=== PATIENT | male | born 1955 | race African-American/Black ===

== ENCOUNTER 2017-01-10 13:32 | Inpatient (IN) ==
[2017-01-10 14:05] LABS: Basophils # 0.1 K/mcL (0.0-0.2); Basophils % 0.6 %; Eosinophils # 0.5 K/mcL (0.0-0.6); Eosinophils % 5.3 %; Hematocrit 40.4 % (37.5-50.1); Hemoglobin 13.8 g/dL (12.9-16.9); Immature Granulocytes % 1.9 % (0-4); Immature Platelets 5.1 % (1.1-6.1); Lymphocytes # 1.3 K/mcL (0.6-4.6); Lymphocytes % 15.8 %; Mean Corpuscular HGB Conc 34.2 g/dL (31.6-35.5); Mean Corpuscular Hemoglobin 29.4 pg (28.0-33.3); Mean Platelet Volume 9.6 fL (9.4-12.4); Monocytes # 0.9 K/mcL (0.0-1.3); Monocytes % 10.6 %; Neutrophils # 5.6 K/mcL (1.6-8.9); Platelet Count 222 K/mcL (140-400); Red Cell Distribution Width 12.4 % (11.5-14.5); Segmented Neutrophils % 65.8 %
[2017-01-10 14:10] LABS: INR 1.2; Prothrombin Time 13.5 Seconds (9.4-12.1)
--- NOTE | 2017-01-10 14:12 | Emergency Department Note ---
Disposition Clinical Impression: Hyponatremia, Morbid obesity with BMI of 50.0-59.9, adult, Delirium tremens Alcoholic intoxication Qualifiers: Complication of substance-induced condition: with delirium Qualified Code(s): F10.921 - Alcohol use, unspecified with intoxication delirium Altered mental status Qualifiers: Altered mental status type: delirium Qualified Code(s): R41.0 - Disorientation , unspecified Disposition: Admitted As Inpatient Condition: Fair Referrals: NO,PCP [Primary Care Provider] - Forms: ED Satisfaction Letter Time of Disposition: 17:22 Altered Mental Status HPI - General Chief Complaint: ED Altered Mental Status Stated Complaint: "not acting right" Time Seen by Provider: 01/10/17 13:39 Source: EMS Mode of arrival: EMS Limitations: altered mental status Nursing Notes Reviewed: Yes Vital Signs Reviewed: Yes - History of Present Illness HPI Narrative: Patient presents by EMS for evaluation of altered mental status and failure to thrive at home. Patient was found Hypoxic and answering questions inappropriately at the house. EMS was concerned about poor oxygen usage. They put him on telemetry by nasal cannula and he started to perk up. Denied any other issues prior to these events. MD complaint: altered mental status, confusion Onset (ago): day(s) Pain Severity: moderate Consistency of Symptoms: waxing and waning Context: alcohol abuse, history of similar presentation, COPD Associated symptoms: Reports: denies other symptoms Treatments prior to arrival: IV fluid, oxygen - Related Data Home Medications Medication Instructions Recorded Confirmed Atorvastatin [Lipitor] 40 mg PO HS 07/29/15 01/10/17 Folic Acid 1 mg PO DAILY 07/29/15 01/10/17 Furosemide [Lasix] 40 mg PO BID 07/29/15 01/10/17 Gabapentin [Neurontin] 1,200 mg PO TID 07/29/15 01/10/17 HYDROcodone/Acet 7.5/325 mg [[place] 1 tab PO Q8H PRN 07/29/15 01/10/17 7.5-325 mg] Sertraline [Zoloft] 150 mg PO QAM 07/29/15 01/10/17 Triamterene/HCTZ 37.5/25mg 1 tab PO DAILY 07/29/15 01/10/17 [Dyazide] Albuterol Sulfate [Albuterol 2 puff IH Q4HR PRN 10/25/15 01/10/17 Inhaler] Metoprolol Succinate 100 mg PO DAILY 10/25/15 10/25/15 Potassium Chloride 20 meq PO DAILY 10/25/15 01/10/17 Budesonide/Formoterol 160/4.5 2 puff IH BIDR 01/10/17 01/10/17 [Symbicort 160/4.5] Omeprazole [PriLOSEC] 40 mg PO DAILY 01/10/17 01/10/17 Oxygen 1 each .ROUTE AD 01/10/17 01/10/17 Previous Rx's Medication Instructions Recorded Fluticasone Propionate Nasal 2 spray NS DAILY 7 Days 11/10/15 [Flonase] Cyclobenzaprine [Flexeril] 10 mg PO TID #15 tablet 11/22/15 Nitroglycerin [Nitrostat] 0.4 mg SL Q5-10MIN PRN 30 Days 12/05/15 Allergies Allergy/AdvReac Type Severity Reaction Status Date / Time azithromycin [From Zithromax] Allergy Rash Verified 01/10/17 13:39 All systems ED: reviewed and negative except as stated. Review of Systems: As Per HPI Constitutional: Denies: fever, chills Cardiovascular: Denies: chest pain, palpitations, dyspnea on exertion Respiratory: Denies: cough, dyspnea, wheezes, hemoptysis Gastrointestinal: Reports: nausea. Denies: abdominal pain, vomiting, diarrhea, constipation Genitourinary: Denies: urgency, dysuria, frequency Musculoskeletal: Denies: back pain, neck pain Integumentary: Denies: rash Neurological: Denies: headache, weakness Endocrine: Denies: fatigue Hematological/Lymphatic: Denies: easy bleeding Past Medical History - Past Medical History Attestation: Yes The following information was validated with the patient. Source: patient Medical history: Reports: COPD, hypertension, other Psychiatric history: Reports: no psych history - Social History Smoking Status: Never smoker Smokeless Tobacco Status: No Alcohol use: Reports: unknown Drug use: Reports: none Physical Exam - General Limitations: altered mental status General appearance: alert, in no apparent distress - Head Head exam: atraumatic, normocephalic, normal inspection - Eye Eye exam: Present: normal appearance, PERRL, EOMI - ENT ENT exam: normal exam, normal oropharynx, mucous membranes moist - Neck Neck exam: Present: normal inspection, full ROM, trachea midline. Absent: tenderness, meningismus, lymphadenopathy - Chest Chest inspection: Present: normal inspection, symmetric chest wall rise. Absent : tenderness - Respiratory Respiratory exam: Present: normal lung sounds bilaterally. Absent: respiratory distress, wheezes, stridor, accessory muscle use - Cardiovascular Cardiovascular exam: Present: regular rate, normal rhythm, normal heart sounds - Abdominal Exam Abdominal exam: Present: soft, Non-Tender, normal bowel sounds. Absent: tenderness, distention, guarding, rebound, rigidity, diminished bowel sounds, Arroyo's sign, Rovsing's sign, tenderness at McBurney's Point - Extremities Exam Extremities exam: Present: normal inspection, full ROM, normal capillary refill. Absent: tenderness - Back Exam Back exam: Present: normal inspection, full ROM. Absent: tenderness, CVA tenderness (R), CVA tenderness (L) - Neurological Exam Neurological exam: Present: alert, oriented X3, CN II-XII intact, normal gait - Skin Skin exam: Present: warm, dry, intact, normal color Course Course Narrative: Patient seen and examined the time of arrival by EMS. See history of present illness. [id number] male presents for confusion acting differently at home. EMS was called secondary to this issue. They rented a house with concern for the patient's well-being secondary to oxygen saturation, altered mental status, confusion. He had a long cord with the oxygen concentrator on the pump that appeared to be malfunctioning. Patient put on oxygen immediately the rest of his vital signs are stable Accu-Chek was normal in transit. He is brought to the hospital without any concern or issue. He still has uncontrolled [place] rhythms in the upper and lower extremities as well as patient answers questions appropriately but has some difficulty with conversation this time. There is concern for possible failure to thrive or decompensation. No other medical history this time EMS did not have anything else to add at this point. Initial physical exam head is atraumatic patient did fall yesterday and has skin tears to the left lower leg. Tetanus will be updated at this point. Evaluation with CT of the head chest x-ray EKG labs including urinalysis urine drug screen ethanol will be ordered this point. Patient is otherwise resting comfortably in the bed in no specific distress. He does show acute signs of intoxication or mentation related issues. There is concern for other underlying etiology. He does not have any focal asymmetry to the upper and lower extremity is or facial asymmetry on exam. Low clinical concern for strokelike symptoms at this time appears to be more of an intoxication related issue. Family is not with him at this point disposition pending treatment course and family consultation - Reevaluation(s) Reevaluation #1: Family arrived at the bedside at this time. They describe long-term alcoholic. Patient had thiamine folate and ammonia. No other issues or concerns this time for CT imaging is negative chest x-ray stable. Labs to be reviewed disposition determined. Time: 15:27 Reevaluation #2: CT of the abdomen completed this time. Consultation placed onto the apple turner Dr. Hinojosa about the patient's hyponatremia. Will review the presentation symptoms. She did not recommend acute hypertonic saline treatment considering the patient was mentating appropriately and is waxing and waning symptoms. She recommended fluid restriction at this time a urine sodium and then admission process to be completed patient also recommend getting a liter of fluid. Patient has otherwise been acting appropriately until he went over to CAT scan at this time. No other trauma or injuries noted this point. He has a skin tear to the left leg. Patient is concerning for alcohol withdrawal causing delirium tremens. He does not fit the clinical presentation will treat him as such along with the findings for weight and lactulose. Large doses of benzodiazepines to be given at this point. Admission process to be completed. Consultation placed to the hospitalist and I reviewed the presentation with the nurse practitioner Kiera Felder. We reviewed the presentation symptoms medical intervention and my concern at this time. She understands all evaluated patient. No other acute issues noted this point. Time: 17:08 Reevaluation #3: Patient is better now after 5 mg of IV Valium. The shaking and altered mentation stopped. Clinically does not have any acute signs of intracranial bleed or pathology. He has not have any acute signs of infectious etiology or concern for meningitis or encephalitis at this point. IV Ativan as given for the urinary tract infection as well as treatment of delirium tremens at this point. Patient admitted the hospital for definitive management. Vital signs as well as medical condition is stabilized. We will continue to watch into the admission process is completed Time: 18:09 Vital Signs Temperature 97.7 F 01/10/17 13:39 Pulse Rate 91 01/10/17 13:39 Respiratory Rate 18 01/10/17 13:39 Blood Pressure 118/58 01/10/17 13:39 O2 Sat by Pulse Oximetry 95 01/10/17 13:39 Temperature 97.7 F 01/10/17 13:39 Pulse Rate 84 01/10/17 17:45 Respiratory Rate 22 01/10/17 17:45 Blood Pressure 102/54 01/10/17 17:45 O2 Sat by Pulse Oximetry 100 01/10/17 17:45 Oxygen Delivery Oxygen Delivery Room Air Altered Mental Status - MDM Narrative Medical decision making narrative: Alcohol withdrawal, delirium tremens, hyponatremia - Medical Records Medical records reviewed: Yes I reviewed the patient's medical records. - Lab Data Lab results reviewed: Yes I reviewed the patient's lab results. Result diagrams: 01/10/17 13:59 01/10/17 13:59 Lab Results 01/10/17 01/10/17 01/10/17 Range/Units 13:59 13:59 13:59 WBC 8.4 (4.3-11.1) K/mcL RBC 4.70 (4.19-5.50) M/mcL Hgb 13.8 (12.9-16.9) g/dL Hct 40.4 (37.5-50.1) % MCV 86.0 (83.0-100.0) fL MCH 29.4 (28.0-33.3) pg MCHC 34.2 (31.6-35.5) g/dL RDW 12.4 (11.5-14.5) % Plt Count 222 (140-400) K/mcL MPV 9.6 (9.4-12.4) fL Immature Gran % 1.9 (0-4) % Seg Neutrophils % 65.8 % Lymphocytes % 15.8 % Monocytes % 10.6 % Eosinophils % 5.3 % Basophils % 0.6 % Neutrophils # 5.6 (1.6-8.9) K/mcL Lymphocytes # 1.3 (0.6-4.6) K/mcL Monocytes # 0.9 (0.0-1.3) K/mcL Eosinophils # 0.5 (0.0-0.6) K/mcL Basophils # 0.1 (0.0-0.2) K/mcL Immature Plt Fraction 5.1 (1.1-6.1) % PT 13.5 H (9.4-12.1) Seconds INR 1.2 APTT 32.9 (26.0-36.0) Seconds Carboxyhemoglobin (0-5) % Sodium 119 L* (136-145) mEq/L Potassium 3.2 L (3.5-4.5) mEq/L Chloride 81 L (98-109) mEq/L Carbon Dioxide 29 (19-29) mEq/L BUN 15 (8-26) mg/dL Creatinine 1.26 H (0.72-1.25) mg/dL Est GFR ( Amer) > 60 (> 60) Est GFR (Non-Af Amer) 58 L (> 60) BUN/Creatinine Ratio 12 (6-26) Glucose 104 H (70-99) mg/dL Calculated Osmolality 249 L (280-300) Calcium 8.4 L (8.6-10.8) mg/dL Total Bilirubin 1.1 (0.2-1.2) mg/dL Direct Bilirubin 0.5 (0.0-0.5) mg/dL Indirect Bilirubin 0.6 (0.0-1.2) mg/dL AST 32 (5-34) Units/L ALT 12 (0-55) Units/L Alkaline Phosphatase 111 (38-126) Units/L Ammonia (18-72) mcmol/L Creatine Kinase 191 (30-200) Units/L Troponin I (0-0.03) ng/mL Serum Total Protein 7.4 (6.0-8.3) g/dL Albumin 3.0 L (3.5-5.0) g/dL Globulin 4.4 H (2.4-3.5) g/dL Albumin/Globulin Ratio 0.7 L (1.1-2.2) Urine Color (Yellow) Urine Clarity (Clear) Urine pH (5.0-8.0) pH Units Ur Specific [place] (1.010-1.025) Urine Protein (Neg-Trace) mg/dL Urine Glucose (UA) (Normal) mg/dL Urine Ketones (Negative) mg/dL Urine Blood (Negative) Urine Nitrite (Negative) Urine Bilirubin (Negative) Urine Urobilinogen (Normal) mg/dL Ur Leukocyte Esterase (Negative) Urine Microscopic RBC (0-3) per hpf Urine Microscopic WBC (0-3) per hpf Ur Squamous Epith Cells (None-Few) per lpf Urine Bacteria (None-Few) per hpf Hyaline Casts (None-Few) per lpf Urine Yeast (None Seen) per hpf Ur Culture Indicated? (NO) Urine Opiates Screen (Mnhnqe=497) ng/mL Ur Barbiturates Screen (Qekmol=788) ng/mL Ur Phencyclidine Scrn (Cutoff=25) ng/mL Ur Amphetamines Screen (Arurkg=2625) ng/mL U Benzodiazepines Scrn (Ngcswh=313) ng/mL Urine Cocaine Screen (Cutoff= 300) ng/mL U Marijuana (THC) Screen (Cutoff = 50) ng/mL Ethyl Alcohol 43 H (0-10) mg/dL 01/10/17 01/10/17 01/10/17 Range/Units 13:59 13:59 15:19 WBC (4.3-11.1) K/mcL RBC (4.19-5.50) M/mcL Hgb (12.9-16.9) g/dL Hct (37.5-50.1) % MCV (83.0-100.0) fL MCH (28.0-33.3) pg MCHC (31.6-35.5) g/dL RDW (11.5-14.5) % Plt Count (140-400) K/mcL MPV (9.4-12.4) fL Immature Gran % (0-4) % Seg Neutrophils % % Lymphocytes % % Monocytes % % Eosinophils % % Basophils % % Neutrophils # (1.6-8.9) K/mcL Lymphocytes # (0.6-4.6) K/mcL Monocytes # (0.0-1.3) K/mcL Eosinophils # (0.0-0.6) K/mcL Basophils # (0.0-0.2) K/mcL Immature Plt Fraction (1.1-6.1) % PT (9.4-12.1) Seconds INR APTT (26.0-36.0) Seconds Carboxyhemoglobin 4.0 (0-5) % Sodium (136-145) mEq/L Potassium (3.5-4.5) mEq/L Chloride (98-109) mEq/L Carbon Dioxide (19-29) mEq/L BUN (8-26) mg/dL Creatinine (0.72-1.25) mg/dL Est GFR ( Amer) (> 60) Est GFR (Non-Af Amer) (> 60) BUN/Creatinine Ratio (6-26) Glucose (70-99) mg/dL Calculated Osmolality (280-300) Calcium (8.6-10.8) mg/dL Total Bilirubin (0.2-1.2) mg/dL Direct Bilirubin (0.0-0.5) mg/dL Indirect Bilirubin (0.0-1.2) mg/dL AST (5-34) Units/L ALT (0-55) Units/L Alkaline Phosphatase (38-126) Units/L Ammonia 47 (18-72) mcmol/L Creatine Kinase (30-200) Units/L Troponin I 0.01 (0-0.03) ng/mL Serum Total Protein (6.0-8.3) g/dL Albumin (3.5-5.0) g/dL Globulin (2.4-3.5) g/dL Albumin/Globulin Ratio (1.1-2.2) Urine Color (Yellow) Urine Clarity (Clear) Urine pH (5.0-8.0) pH Units Ur Specific [place] (1.010-1.025) Urine Protein (Neg-Trace) mg/dL Urine Glucose (UA) (Normal) mg/dL Urine Ketones (Negative) mg/dL Urine Blood (Negative) Urine Nitrite (Negative) Urine Bilirubin (Negative) Urine Urobilinogen (Normal) mg/dL Ur Leukocyte Esterase (Negative) Urine Microscopic RBC (0-3) per hpf Urine Microscopic WBC (0-3) per hpf Ur Squamous Epith Cells (None-Few) per lpf Urine Bacteria (None-Few) per hpf Hyaline Casts (None-Few) per lpf Urine Yeast (None Seen) per hpf Ur Culture Indicated? (NO) Urine Opiates Screen (Qyaias=659) ng/mL Ur Barbiturates Screen (Fcnbqe=824) ng/mL Ur Phencyclidine Scrn (Cutoff=25) ng/mL Ur Amphetamines Screen (Ahtldh=6066) ng/mL U Benzodiazepines Scrn (Kitozs=978) ng/mL Urine Cocaine Screen (Cutoff= 300) ng/mL U Marijuana (THC) Screen (Cutoff = 50) ng/mL Ethyl Alcohol (0-10) mg/dL 07/23/17 07/23/17 Range/Units 15:25 15:25 WBC (4.3-11.1) K/mcL RBC (4.19-5.50) M/mcL Hgb (12.9-16.9) g/dL Hct (37.5-50.1) % MCV (83.0-100.0) fL MCH (28.0-33.3) pg MCHC (31.6-35.5) g/dL RDW (11.5-14.5) % Plt Count (140-400) K/mcL MPV (9.4-12.4) fL Immature Gran % (0-4) % Seg Neutrophils % % Lymphocytes % % Monocytes % % Eosinophils % % Basophils % % Neutrophils # (1.6-8.9) K/mcL Lymphocytes # (0.6-4.6) K/mcL Monocytes # (0.0-1.3) K/mcL Eosinophils # (0.0-0.6) K/mcL Basophils # (0.0-0.2) K/mcL Immature Plt Fraction (1.1-6.1) % PT (9.4-12.1) Seconds INR APTT (26.0-36.0) Seconds Carboxyhemoglobin (0-5) % Sodium (136-145) mEq/L Potassium (3.5-4.5) mEq/L Chloride (98-109) mEq/L Carbon Dioxide (19-29) mEq/L BUN (8-26) mg/dL Creatinine (0.72-1.25) mg/dL Est GFR ( Amer) (> 60) Est GFR (Non-Af Amer) (> 60) BUN/Creatinine Ratio (6-26) Glucose (70-99) mg/dL Calculated Osmolality (280-300) Calcium (8.6-10.8) mg/dL Total Bilirubin (0.2-1.2) mg/dL Direct Bilirubin (0.0-0.5) mg/dL Indirect Bilirubin (0.0-1.2) mg/dL AST (5-34) Units/L ALT (0-55) Units/L Alkaline Phosphatase (38-126) Units/L Ammonia (18-72) mcmol/L Creatine Kinase (30-200) Units/L Troponin I (0-0.03) ng/mL Serum Total Protein (6.0-8.3) g/dL Albumin (3.5-5.0) g/dL Globulin (2.4-3.5) g/dL Albumin/Globulin Ratio (1.1-2.2) Urine Color Dark Yellow (Yellow) Urine Clarity Turbid A (Clear) Urine pH 5.5 (5.0-8.0) pH Units Ur Specific [place] 1.018 (1.010-1.025) Urine Protein Trace (Neg-Trace) mg/dL Urine Glucose (UA) Normal (Normal) mg/dL Urine Ketones Trace H (Negative) mg/dL Urine Blood Moderate H (Negative) Urine Nitrite Negative (Negative) Urine Bilirubin Moderate H (Negative) Urine Urobilinogen 2.0 H (Normal) mg/dL Ur Leukocyte Esterase Large H (Negative) Urine Microscopic RBC 5-15 H (0-3) per hpf Urine Microscopic WBC TNTC H (0-3) per hpf Ur Squamous Epith Cells Many H (None-Few) per lpf Urine Bacteria Many H (None-Few) per hpf Hyaline Casts Few (None-Few) per lpf Urine Yeast Few H (None Seen) per hpf Ur Culture Indicated? YES A (NO) Urine Opiates Screen Positive H (Hvarrg=057) ng/mL Ur Barbiturates Screen Negative (Qfysse=814) ng/mL Ur Phencyclidine Scrn Negative (Cutoff=25) ng/mL Ur Amphetamines Screen Negative (Rzgumt=4170) ng/mL U Benzodiazepines Scrn Negative (Xviwkt=467) ng/mL Urine Cocaine Screen Negative (Cutoff= 300) ng/mL U Marijuana (THC) Screen Negative (Cutoff = 50) ng/mL Ethyl Alcohol (0-10) mg/dL - Radiology Data Radiology results reviewed: Yes I reviewed the patient's radiology results. CT imaging of the head and chest x-ray are stable at this time. - EKG Data EKG attestation: Yes I reviewed and interpreted this EKG. EKG shows normal: sinus rhythm, axis, intervals, QRS complexes, ST-T waves Rate: normal Rhythm: NSR [place]/QRS: left axis deviation Voltage: c/w atrial hypertrophy When compared to previous EKG there are: no significant changes Interpretation: no acute changes, unchanged when compared to prior tracing (date ) (05/30/16) TPA Checklist - LKW: 3-4.5 hrs Add. Warnings/Precautions Patient/family understanding: The patient/family members have been counseled and understood the risk, benefit , and alternatives of treatment. Critical Care Time Critical Care Time: Yes Total Critical Care Time: 35 Attestation: Critical care performed: Time is exclusive of separately billable procedures. Time includes: direct patient care, patient reassessment, coordination of patient care, interpretation of data (laboratory data, radiology data, and respiratory data), review of patient's medical records, medical consultation and documentation of patient care. Procedures included in critical care time: Procedures excluded from critical care time:
[2017-01-10 14:13] LABS: Activated Partial Thrombo Time 32.9 Seconds (26.0-36.0)
[2017-01-10 14:20] LABS: Alanine Aminotransferase 12 Units/L (0-55); Albumin/Globulin Ratio 0.7 (1.1-2.2); Alkaline Phosphatase 111 Units/L (38-126); Aspartate Amino Transferase 32 Units/L (5-34); BUN/Creatinine Ratio 12 (6-26); Bilirubin,Direct 0.5 mg/dL (0.0-0.5); Bilirubin,Indirect 0.6 mg/dL (0.0-1.2); Bilirubin,Total 1.1 mg/dL (0.2-1.2); Blood Urea Nitrogen 15 mg/dL (8-26); Calcium 8.4 mg/dL (8.6-10.8); Carbon Dioxide 29 mEq/L (19-29); Chloride 81 mEq/L (98-109); Creatine Kinase 191 Units/L (30-200); Ethanol 43 mg/dL (0-10); Globulin 4.4 g/dL (2.4-3.5); Glucose 104 mg/dL (70-99); Osmolality,Calculated 249 (280-300); Potassium 3.2 mEq/L (3.5-4.5); Total Protein 7.4 g/dL (6.0-8.3); eGFR For African Americans > 60 (> 60); eGFR For Non-African Americans 58 (> 60)
[2017-01-10 14:24] LABS: Sodium 119 mEq/L (136-145)
[2017-01-10] MEDS ORDERED: Thiamine (B-1) 100 MG in D5% in Water 50 ML IVPB STA (14:43)
[2017-01-10] MEDS ORDERED: Folic Acid 1 MG in D5% in Water 50 ML IVPB STA (14:43)
[2017-01-10] MEDS ORDERED: Lactulose Oral Soln 20 GM/30 ML UDC PO ONE (15:01)
[2017-01-10 15:42] LABS: Bilirubin,Urine Moderate (Negative); Blood,Urine Moderate (Negative); Clarity,Urine Turbid (Clear); Glucose,Urine (UA) Normal (Normal); Ketones,Urine Trace mg/dL (Negative); Leukocyte Esterase,Urine Large (Negative); Nitrite,Urine Negative (Negative); PH,Urine 5.5 pH Units (5.0-8.0); Protein,Urine Trace mg/dL (Neg-Trace); Specific Gravity,Urine 1.018 (1.010-1.025)
[2017-01-10 15:44] LABS: Bacteria,Urine Many per hpf (None-Few); Hyaline Casts,Urine Few per lpf (None-Few); Squamous Epithelial Cell,Urine Many per lpf (None-Few); WBC,Urine TNTC per hpf (0-3)
[2017-01-10 15:46] LABS: Color,Urine Dark Yellow (Yellow)
[2017-01-10 15:47] LABS: Amphetamine Screen,Urine Negative ng/mL (Cutoff=1000); Barbiturate Screen,Urine Negative ng/mL (Cutoff=200); Benzodiazepines Screen,Urine Negative ng/mL (Cutoff=200); Cannabinoid Screen,Urine Negative ng/mL (Cutoff = 50); Cocaine Screen,Urine Negative ng/mL (Cutoff= 300); Opiate Screen,Urine Positive ng/mL (Cutoff=300); Phencyclidine Screen,Urine Negative ng/mL (Cutoff=25)
[2017-01-10 15:59] LABS: Yeast,Urine Few per hpf (None Seen)
[2017-01-10] MEDS ORDERED: 0.9 % Sodium Chloride 1,000 ML IVC ONE (17:03)
[2017-01-10] MEDS ORDERED: Tdap (Boostrix) Vaccine 0.5 ML SYRINGE IM ONE (17:08)
[2017-01-10] MEDS ORDERED: diazePAM 10 MG/2 ML SYRINGE IVP ONE (17:18)
[2017-01-10] MEDS ORDERED: diazePAM 10 MG/2 ML SYRINGE ONE (17:20)
[2017-01-10] MEDS ORDERED: *HR* LORazepam 2 MG/ML VIAL ONE (19:26)
[2017-01-10] MEDS ORDERED: *HR* LORazepam 2 MG/ML VIAL IVP ONE (19:27)
[2017-01-10] MEDS ORDERED: *HR* Promethazine 25 MG/ML VIAL IVP PRN (19:31)
[2017-01-10] MEDS ORDERED: *HR* LORazepam 2 MG/ML VIAL IVP PRN ×3 (19:31)
[2017-01-10] MEDS ORDERED: Naloxone 0.4 MG/ML INJ IVP PRN ×2 (19:48→19:49)
[2017-01-10] MEDS ORDERED: Acetaminophen 325 MG TABLET PO PRN (19:49)
[2017-01-10] MEDS ORDERED: 0.9 % Sodium Chloride 1,000 ML ONE (20:05)
[2017-01-10 20:48] LABS: ABG Base Excess 3.6 mEq/L (-2.0 to 3.0); ABG HCO3 31.7 mEQ/L (21-27); ABG Oxygen Saturation 99 % (95-98); ABG PCO2 63 mmHg (35-45); ABG PH 7.31 pH Units (7.32-7.45); ABG PO2 133 mmHg (85-104); ABG TCO2 33.6 mEq/L (20-26); Blood Gas FiO2 36 %
--- NOTE | 2017-01-10 20:49 | Internal Med History&Physical ---
<All Roberto Jeffry - Last Filed: 01/10/17 20:34> Date of Encounter: 01/10/17 Time of Encounter: 20:00 Assessment and Plan (1) Altered mental status Current visit: Yes Status: Acute Mr. Dumas presents with altered mental status, flailing lashing out's aggressive behavior and non-coherent manner. He has a history of alcoholism with a 5-824 ounce by mouth per day ingestion. Recent poor nutritional intake. - Concerning factors: EtOH 43, sodium 119, serum osmolality 249, urine osmolality 1.018, urine sodium <20, altered mental status ABG: PH 7.31, PCO2 63, PO2 133, bicarbonate 31.7 Patient is a mixed picture of hyponatremia, mixed acidosis and alcohol withdrawals. Upon arrival to the general medical floor he was aggressively she now notes incoherence and required 4 point restraints to protect himself and others. He was given 2 mg Ativan, patient improved restraints discontinued. Plan: - We will treat for alcohol withdrawals - Correct hyponatremia with a goal of raising the serum sodium by 4-6meq/liter and not to exceed 8meq in 24-hour period. - Normal saline at 75 mL's per hour - Recheck sodium every 2 hours - Seizure precautions - [place] catheter placement - Evaluate neuro status every 4 hours Qualifiers: Altered mental status type: delirium Qualified Code(s): R41.0 - Disorientation, unspecified (2) Hyponatremia Current visit: Yes Status: Chronic Sodium 119 secondary to beer podimania. Plan: Discussed above. (3) Hypokalemia Current visit: No Status: Acute Likely secondary to poor nutritional intake, significant alcohol intake and Lasix use. Plan: - IV potassium 40meq - recheck potassium in am check magnesium and phosphate in am. (4) Alcoholic intoxication Current visit: Yes Status: Acute History of chronic alcoholism with previous admissions for hyponatremia complicated with alcohol withdrawals. Plan: -Alcohol withdrawal protocol with Ativan - Seizure percussion - Patient would benefit from rehabilitation. - set up worker consult Qualifiers: Complication of substance-induced condition: with delirium Qualified Code(s ): F10.921 - Alcohol use, unspecified with intoxication delirium (5) Metabolic acidosis Current visit: No Status: Acute ABG: PH 7.31, PCO2 63, PO2 133, bicarbonate 31.7 Likely mixed picture from obstructive sleep apnea, alcohol abuse with poor nutritional intake. Plan: -Resolved underlying metabolic derangements. (6) Urinary tract infection Current visit: Yes Status: Acute Patient presented with altered mental status, urinalysis collected demonstrates large amount of leukocyte esterase, few yeast and no nitrates. Plan: - IV ceftriaxone Qualifiers: Qualified Code(s): N39.0 - Urinary tract infection, site not specified; R31.9 - Hematuria, unspecified (7) DVT prophylaxis Current visit: No Status: Acute Subcutaneous Lovenox 40mg daily Internal Medicine - H&P: HPI Chief complaint: AMS Admitted From: Emergency Dept Plans for Post Hospital Care: Home History of present illness: Mr. Dumas is a 61 year old male known history of alcoholism, heart failure, venous stasis, SHALINI was admitted with altered mental status to the general medical floor. Mr. Dumas is unable to provide appropriate medical history due to his current altered mental status. His significant other Kemi Mackay left contact information and was able to provide information regarding this patient. She states that Mr. Dumas was in his usual state of health up until this morning. She said she left this morning he was still sleeping in bed and was contacted by neighbors who said he was yelling out, incoherent speech, flailing his arms and legs. She said this is abnormal for him and has never exhibited this type of behavior in the past. He does have a history of alcoholism and does drink 5-824 ounce beers per day. He has gone through alcohol withdrawals in the past but has never exhibited such behavior. She said the last couple of days he has had poor appetite and not eating very much. He did take a bite of the same much yesterday but that was the limits of his nutritional intake. She said he was a little unsteady on his legs yesterday but she thought that was due to his knees which she has been having trouble with. He did not express any concerns of double vision, headaches, change in mental status, shortness of breath palpitations abdominal pains nausea vomiting diarrhea constipation. She was able to review his medications and tell me what he was taking. There were no changes to his medications recently. Past Med Surg Social Fam HX - Past Medical History Medical history: COPD, hypertension, other Psychiatric history: no psych history - Past Surgical History Surgical History: other (Abdominal hernia repair) - Social History Smoking Status: Never smoker Smokeless Tobacco Status: No Alcohol use: unknown Drug use: none - Family History Mother Living Status: Hx Family Cardiac Disorders: Yes Hx Family Respiratory Disorders: No Hx Family Cancer: No Hx Family GI Disorders: No Hx Family Endocrine Disorder: No Hx Family Neuromuscular Disorders: No Hx Family Neurologic Disorders: No Hx Family HEENT Disorders: No Hx Family Autoimmune Disorders: No Father Living Status: Hx Family Cardiac Disorders: No Hx Family Respiratory Disorders: No Hx Family Cancer: No Hx Family GI Disorders: No Hx Family Endocrine Disorder: No Hx Family Neuromuscular Disorders: No (ALS) Hx Family Neurologic Disorders: No Hx Family HEENT Disorders: No Hx Family Autoimmune Disorders: No Internal Medicine - H&P: Meds Atorvastatin [Lipitor] 40 mg PO HS 07/29/15 [History] Folic Acid 1 mg PO DAILY 07/29/15 [History] Furosemide [Lasix] 40 mg PO BID 07/29/15 [History] Gabapentin [Neurontin] 1,200 mg PO TID 07/29/15 [History] HYDROcodone/Acet 7.5/325 mg [[place] 7.5-325 mg] 1 tab PO Q8H PRN 07/29/15 [ History] Sertraline [Zoloft] 150 mg PO QAM 07/29/15 [History] Triamterene/HCTZ 37.5/25mg [Dyazide] 1 tab PO DAILY 07/29/15 [History] Albuterol Sulfate [Albuterol Inhaler] 2 puff IH Q4HR PRN 10/25/15 [History] Metoprolol Succinate 100 mg PO DAILY 10/25/15 [History] Potassium Chloride 20 meq PO DAILY 10/25/15 [History] Fluticasone Propionate Nasal [Flonase] 2 spray NS DAILY 7 Days 11/10/15 [Rx] Cyclobenzaprine [Flexeril] 10 mg PO TID #15 tablet 11/22/15 [Rx] Nitroglycerin [Nitrostat] 0.4 mg SL Q5-10MIN PRN 30 Days 12/05/15 [Rx] Budesonide/Formoterol 160/4.5 [Symbicort 160/4.5] 2 puff IH BIDR 01/10/17 [ History] Omeprazole [PriLOSEC] 40 mg PO DAILY 01/10/17 [History] Oxygen 1 each .ROUTE AD 01/10/17 [History] Allergies azithromycin [From Zithromax] Allergy (Verified 01/10/17 13:39) Rash ROS unobtainable: due to mental status All Systems PM: A 10-system review of systems was performed and is negative for pertinent findings except as documented above in the HPI. - Constitutional Vitals: Temp Pulse Resp BP Pulse Ox 97.7 F 86 24 102/66 100 01/10/17 20:18 01/10/17 20:18 01/10/17 20:18 01/10/17 20:18 01/10/17 20:18 Exam: General: Patient is altered and unable to provide any useful information. He is oriented 0 and does not respond appropriately. He is lashing out in bed with no coordination to his movements. HEENT: Normocephalic, atraumatic, pupils equal reactive to light, oral mucosa moist, uvula midline, neck supple trachea midline no palpable lymphadenopathy, no thyromegaly. Chest: Symmetric bilateral correlating with respiratory effort, effort nonlabored. Cardiac: Regular rate and rhythm, positive S1 and S2. no bruits appreciated bilateral carotids, Radial pulses 2+ bilateral, posterior tibial and dorsal pedal pulses 2+ bilateral. Respiratory: Clear to auscultation all lung barboza Abdomen: Distended, nontender to palpation, positive bowel sounds, no palpable masses appreciated on examination. Diastases recti present Extremities: Symmetric bilateral, bilateral lower extremities have 2+ edema with venous stasis changes. Neurologic: Altered. Glascow coma scale 9 Internal Med - H&P Results - Labs CBC & Chem 7: 01/10/17 13:59 01/10/17 13:59 <Laura Sanders - Last Filed: 01/10/17 22:16> Date of Encounter: 01/10/17 Time of Encounter: 20:15 Internal Medicine - H&P: HPI History of present illness: Mr. Dumas is a 61 year old male All Systems PM: A 10-system review of systems was performed and is negative for pertinent findings except as documented above in the HPI. - Constitutional Vitals: Temp Pulse Resp BP Pulse Ox 97.6 F 81 24 112/70 100 01/10/17 21:31 01/10/17 21:31 01/10/17 21:31 01/10/17 21:31 01/10/17 21:31 Internal Med - H&P Results - Labs CBC & Chem 7: 01/10/17 13:59 01/10/17 20:43 Labs: BMP 01/10/17 20:43 Sodium 119 L* - ABG Interpretation ABG results: 01/10/17 20:40 ABG pH 7.31 L ABG pCO2 63 H ABG pO2 133 H ABG HCO3 31.7 H ABG Total CO2 33.6 H ABG O2 Saturation 99 H ABG Base Excess 3.6 H - Attending Attestation I examined this patient and my medical decision-making was reviewed with the resident physician, Dr. Roberto. I agree with the documented history of present illness, review of systems, past medical, surgical social and family histories and examination findings, disposition and treatment plan as described above except to any changes set forth below. Patient is a 61-year-old male with a history of chronic alcohol abuse, prior episodes of hyponatremia most likely related to be beer potomania presented to ER with complaints of altered mental status and increasing agitation which was out of character for the patient. Patient does have a history of chronic alcohol abuse and drinks about 5-8, 24 ounce cans of beer everyday. Presently he is very somnolent and has received intravenous benzodiazepines. History has been obtained through discussion with the resident physician and review of medical record and from his significant other. On examination, patient is very somnolent. Pupils equal and reactive and miotic. Abdomen soft, distended. Heart sounds are normal. Breath sounds are normal. No audible wheeze. Patient has bilateral stasis dermatitis and does appear to have chronic lymphedema. Blood work shows sodium of 119. CT of the head does not show any acute process. CT of the abdomen and pelvis was done but due to motion artifact was noted with study. Patient with severe hyponatremia likely euvolemic hyponatremia. We will treat with IV normal saline infusion while monitoring sodium levels closely to avoid a rise in serum sodium levels greater than 8 mEq in 24 hours. Acute encephalopathy: Could be related to hyponatremia. Patient also received IV Ativan for alcohol withdrawal symptoms. Will monitor with neuro checks. Seizure precautions. Restraints for agitation. Alcohol abuse and withdrawal: We will treat per [facility] protocol. Monitor vital signs closely. Seizure precautions. set up worker consult. Thiamine, folic acid replacement. Possible urinary tract infection: Will treat with IV ceftriaxone. Follow urine cultures. Electrolyte abnormalities: Check magnesium and phosphate levels. low potassium levels. We will replete
[2017-01-10 21:06] LABS: Creatinine,Urine 161 mg/dL
[2017-01-10 21:09] LABS: Sodium, Urine < 20.0 mEq/L
[2017-01-10] MEDS ORDERED: 0.9 % Sodium Chloride 1,000 ML IVC SCH (21:15)
[2017-01-10] MEDS ORDERED: Potassium Chloride 40 MEQ, Lidocaine 1% 2 ML in D5% in Water 500 ML IVPB ONE (21:27)
[2017-01-10] MEDS: Budesonide/Formoterol 160/4.5 MDI IH SCH (22:19)
[2017-01-11] MEDS ORDERED: 0.9 % Sodium Chloride 1,000 ML IVC SCH (00:49)
[2017-01-11] MEDS ORDERED: Furosemide 40 MG/4 ML VIAL IVP ONE (00:49)
[2017-01-11 03:57] LABS: Basophils # 0.1 K/mcL (0.0-0.2); Basophils % 0.9 %; Eosinophils # 0.3 K/mcL (0.0-0.6); Eosinophils % 6.1 %; Hematocrit 38.4 % (37.5-50.1); Hemoglobin 12.7 g/dL (12.9-16.9); Immature Granulocytes % 1.4 % (0-4); Lymphocytes # 0.8 K/mcL (0.6-4.6); Mean Corpuscular HGB Conc 33.1 g/dL (31.6-35.5); Mean Corpuscular Hemoglobin 28.9 pg (28.0-33.3); Mean Corpuscular Volume 87.5 fL (83.0-100.0); Mean Platelet Volume 9.8 fL (9.4-12.4); Monocytes # 0.7 K/mcL (0.0-1.3); Monocytes % 12.1 %; Neutrophils # 3.6 K/mcL (1.6-8.9); Platelet Count 171 K/mcL (140-400); Red Blood Count 4.39 M/mcL (4.19-5.50); Red Cell Distribution Width 12.5 % (11.5-14.5); Segmented Neutrophils % 64.5 %
[2017-01-11 04:16] LABS: BUN/Creatinine Ratio 15 (6-26); Blood Urea Nitrogen 16 mg/dL (8-26); Carbon Dioxide 29 mEq/L (19-29); Chloride 85 mEq/L (98-109); Potassium 3.3 mEq/L (3.5-4.5); Sodium 121 mEq/L (136-145); eGFR For African Americans > 60 (> 60)
[2017-01-11 04:17] LABS: Alanine Aminotransferase 11 Units/L (0-55); Albumin 2.6 g/dL (3.5-5.0); Albumin/Globulin Ratio 0.7 (1.1-2.2); Alkaline Phosphatase 95 Units/L (38-126); Aspartate Amino Transferase 25 Units/L (5-34); Globulin 3.9 g/dL (2.4-3.5); Glucose 95 mg/dL (70-99); Osmolality,Calculated 253 (280-300); Total Protein 6.5 g/dL (6.0-8.3); eGFR For Non-African Americans > 60 (> 60)
[2017-01-11] MEDS ORDERED: *HR* LORazepam 2 MG/ML VIAL IVP PRN (08:22)
--- NOTE | 2017-01-11 08:31 | Internal Med Progress Note ---
<RamirezDelmar adames - Last Filed: 01/11/17 08:27> Date of Encounter: 01/11/17 Time of Encounter: 08:27 - Assessment and plan (1) Hyponatremia Current Visit: Yes Status: Chronic Assessment and plan: - Likely secondary to chronic alcohol use with dietary deficiencies. - Clinically hypovolemic. - Urine Na <20. Doubt salt wasting. - Will give sodium tablets, diet advance, monitor Na Q4 hours. (2) Altered mental status Current Visit: Yes Status: Acute Assessment and plan: - Likely secondary to alcohol intoxication/ abuse. - Possible aspiration PNA seen on CXR, UTI, hyponatremia - Started on ABx, replenishing Na slowly, benzodiazepines for agitation. Qualifiers: Altered mental status type: delirium Qualified Code(s): R41.0 - Disorientation, unspecified (3) Pneumonia Current Visit: No Status: Ruled-out Assessment and plan: - CXR showed bilateral opacities concerning for PNA - Given chronic alcohol intoxication, concern for aspiration PNA - Start unasyn and ceftriaxone. Qualifiers: Pneumonia type: aspiration pneumonia Aspiration pneumonia type: unspecified Laterality: bilateral Lung location: unspecified part of lung Qualified Code(s): J69.0 - Pneumonitis due to inhalation of food and vomit (4) Alcoholic intoxication Current Visit: Yes Status: Acute Assessment and plan: - History of chronic alcohol abuse. Last admitted drink was yesterday morning - Denies history of DTs/ withdrawls - CIWA protocol in effect, Ativan PRN agitation, librium 50 mg BID Qualifiers: Complication of substance-induced condition: with delirium Qualified Code(s ): F10.921 - Alcohol use, unspecified with intoxication delirium (5) Hypokalemia Current Visit: No Status: Acute Assessment and plan: - K of 3.3 - 40 mEq ordered (6) Urinary tract infection Current Visit: Yes Status: Acute Assessment and plan: - UA in ED showed large leukocyte esterase and too many WBC to count - Urine culture pending - Receiving Unasyn and rocephin Qualifiers: Urinary tract infection type: acute cystitis Hematuria presence: without hematuria Qualified Code(s): N30.00 - Acute cystitis without hematuria (7) Hypoxia Current Visit: Yes Status: Acute Assessment and plan: - patient was noted to be hypoxic at home per family - Normally wears O2 at home, patient is not aware how much - ABG in ED showed respiratory acidosis. - Tolerating 4L NC at 98% - Time Spent With Patient 25 - 35 minutes - Subjective Interval history: Patient was seen and examined this AM at bedside. He states that he is here because his family thought he was confused and not making sense so they called the EMS. He admits to being a chronic drinker, and states his last drink was during the baseball game, presumably yesterday. He states he normally drinks about 2 beers per day. He denies any symptoms of tremors, SARKAR, confusion, CP, SOB , n/v. He denies ever having alcohol withdrawl. - Constitutional Vitals: Temp Pulse Resp BP Pulse Ox 97.7 F 85 19 122/65 98 01/11/17 07:36 01/11/17 07:36 01/11/17 07:36 01/11/17 07:36 01/11/17 07:36 Exam: Gen.: Vitals noted. No acute distress. AAOx2. Figeting, moving all extremities frequently. HEENT: PERRL/EOMI, oropharynx clear, Normocephalic, atraumatic. Dry mucus membranes. Poor dentition. Neck: Supple. No adenopathy. Cardiac: RRR, no murmur, +S1/S2. Tachycardic. Pulmonary: CTA bilaterally, no wheezes, rales or rhonchi, equal chest expansion Abdomen: Distended. soft, nontender, BS noted, no guarding Back: Nontender throughout. MSK: ROM intact, no joint swelling noted. Frequent movement. Extremities: no BLE edema, nontender calf, no cyanosis or clubbing Neuro: A&Ox2, moves all extremities, no focal deficits Psych: Appropriate mood and behavior Internal Medicine: Result - Labs CBC & Chem 7: 01/11/17 03:00 01/11/17 07:59 Labs: Short CBC 01/11/17 Range/Units 03:00 WBC 5.6 (4.3-11.1) K/mcL Hgb 12.7 L (12.9-16.9) g/dL Hct 38.4 (37.5-50.1) % Plt Count 171 (140-400) K/mcL Neutrophils # 3.6 (1.6-8.9) K/mcL BMP 01/10/17 01/10/17 01/11/17 20:43 23:24 00:57 Sodium 119 L* 119 L* 119 L* Potassium Chloride Carbon Dioxide BUN Creatinine Glucose Calcium 01/11/17 01/11/17 01/11/17 03:00 03:00 04:58 Sodium 121 L 120 L* 121 L Potassium 3.3 L Chloride 85 L Carbon Dioxide 29 BUN 16 Creatinine 1.08 Glucose 95 Calcium 8.0 L 01/11/17 07:59 Sodium 123 L Potassium Chloride Carbon Dioxide BUN Creatinine Glucose Calcium Liver Function 01/11/17 Range/Units 03:00 Total Bilirubin 1.0 (0.2-1.2) mg/dL AST 25 (5-34) Units/L ALT 11 (0-55) Units/L Alkaline Phosphatase 95 (38-126) Units/L Albumin 2.6 L (3.5-5.0) g/dL - ABG Interpretation ABG results: ABG ABG pH 7.31 pH Units (7.32-7.45) L 01/10/17 20:40 ABG pCO2 63 mmHg (35-45) H 01/10/17 20:40 ABG pO2 133 mmHg (85-104) H 01/10/17 20:40 ABG O2 Saturation 99 % (95-98) H 01/10/17 20:40 PT/INR, D-dimer PT 13.5 Seconds (9.4-12.1) H 01/10/17 13:59 Consult Discharge Plan - Plan Referrals: NO,PCP [Primary Care Provider] - <Jhonathan Albarran H - Last Filed: 01/11/17 09:46> Date of Encounter: 01/11/17 - Constitutional Vitals: Temp Pulse Resp BP Pulse Ox 97.7 F 85 19 122/65 98 01/11/17 07:36 01/11/17 07:36 01/11/17 07:36 01/11/17 07:36 01/11/17 07:36 Internal Medicine: Result - Labs CBC & Chem 7: 01/11/17 03:00 01/11/17 07:59 Labs: Short CBC 01/11/17 Range/Units 03:00 WBC 5.6 (4.3-11.1) K/mcL Hgb 12.7 L (12.9-16.9) g/dL Hct 38.4 (37.5-50.1) % Plt Count 171 (140-400) K/mcL Neutrophils # 3.6 (1.6-8.9) K/mcL BMP 01/10/17 01/10/17 01/11/17 20:43 23:24 00:57 Sodium 119 L* 119 L* 119 L* Potassium Chloride Carbon Dioxide BUN Creatinine Glucose Calcium 01/11/17 01/11/17 01/11/17 03:00 03:00 04:58 Sodium 121 L 120 L* 121 L Potassium 3.3 L Chloride 85 L Carbon Dioxide 29 BUN 16 Creatinine 1.08 Glucose 95 Calcium 8.0 L 01/11/17 07:59 Sodium 123 L Potassium Chloride Carbon Dioxide BUN Creatinine Glucose Calcium Liver Function 01/11/17 Range/Units 03:00 Total Bilirubin 1.0 (0.2-1.2) mg/dL AST 25 (5-34) Units/L ALT 11 (0-55) Units/L Alkaline Phosphatase 95 (38-126) Units/L Albumin 2.6 L (3.5-5.0) g/dL - ABG Interpretation ABG results: ABG ABG pH 7.31 pH Units (7.32-7.45) L 01/10/17 20:40 ABG pCO2 63 mmHg (35-45) H 01/10/17 20:40 ABG pO2 133 mmHg (85-104) H 01/10/17 20:40 ABG O2 Saturation 99 % (95-98) H 01/10/17 20:40 PT/INR, D-dimer PT 13.5 Seconds (9.4-12.1) H 01/10/17 13:59 - Attending Attestation Hyponatremia euvolemic versus hypovolemic, continue IV fluids for now with salt tablets May discontinue normal saline depending on the next values of sodium I examined this patient and my medical decision-making was reviewed with the Resident Physician. I agree with the documented findings, disposition and treatment plan as described except to the extent set forth below.
[2017-01-11] MEDS ORDERED: Potassium Chloride 40 MEQ, Lidocaine 1% 2 ML in D5% in Water 500 ML IVPB ONE (08:37)
[2017-01-11] MEDS: Budesonide/Formoterol 160/4.5 MDI IH SCH ×2 (08:40→19:44)
[2017-01-11] MEDS ORDERED: Pantoprazole 40 MG VIAL IVP SCH (09:00)
[2017-01-11] MEDS: Thiamine (B-1) 100 MG TABLET PO SCH (09:23)
[2017-01-11] MEDS: Gabapentin 400 MG CAPSULE PO SCH ×3 (09:23→21:17)
[2017-01-11] MEDS: Vitamin B Complex/Vit C/Vit E 1 EACH TABLET PO SCH (09:23)
[2017-01-11] MEDS: Folic Acid 1 MG TABLET PO SCH (09:23)
[2017-01-11] MEDS: Ampicillin/Sulbactam 1,500 MG in 0.9 % Sodium Chloride Mini Bag 100 ML IVPB SCH ×4 (10:44→23:25)
[2017-01-11] MEDS ORDERED: Albuterol 2.5 MG/3 ML NEBULIZER IH PRN (14:32)
--- NOTE | 2017-01-11 15:52 | Electrocardiograph Report ---
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
[2017-01-11] MEDS: Metoprolol XL (24 HR) Succ 50 MG TAB.ER.24H PO SCH (16:37)
[2017-01-11] MEDS: *HR* Heparin 5,000 UNIT/ML VIAL SQ SCH (18:29)
[2017-01-12] MEDS: Ampicillin/Sulbactam 1,500 MG in 0.9 % Sodium Chloride Mini Bag 100 ML IVPB SCH ×3 (05:19→18:29)
[2017-01-12] MEDS: *HR* Heparin 5,000 UNIT/ML VIAL SQ SCH ×2 (05:21→18:29)
[2017-01-12] MEDS: Gabapentin 400 MG CAPSULE PO SCH ×3 (07:31→20:07)
[2017-01-12] MEDS: Vitamin B Complex/Vit C/Vit E 1 EACH TABLET PO SCH (07:32)
[2017-01-12] MEDS: Metoprolol XL (24 HR) Succ 50 MG TAB.ER.24H PO SCH (07:32)
[2017-01-12] MEDS: Thiamine (B-1) 100 MG TABLET PO SCH (07:33)
[2017-01-12] MEDS: Folic Acid 1 MG TABLET PO SCH (07:33)
[2017-01-12 09:18] LABS: Hemoglobin 12.7 g/dL (12.9-16.9); Mean Corpuscular HGB Conc 32.6 g/dL (31.6-35.5); Mean Corpuscular Hemoglobin 29.3 pg (28.0-33.3); Mean Corpuscular Volume 89.9 fL (83.0-100.0); Platelet Count 180 K/mcL (140-400); Red Blood Count 4.34 M/mcL (4.19-5.50); Red Cell Distribution Width 12.8 % (11.5-14.5)
--- NOTE | 2017-01-12 09:55 | Internal Med Progress Note ---
<Delmar Shah - Last Filed: 01/12/17 11:40> Date of Encounter: 01/12/17 Time of Encounter: 09:53 - Assessment and plan (1) Hyponatremia Current Visit: Yes Status: Chronic Assessment and plan: - Likely secondary to chronic alcohol use with dietary deficiencies. - Improved from yesterday with addition of salt tablets, fluid resection. 119- 125 - Clinically hypovolemic. - Urine Na <20. Doubt salt wasting. - Will give sodium tablets, diet advance, monitor Na Q4 hours. (2) Altered mental status Current Visit: Yes Status: Acute Assessment and plan: - Likely secondary to alcohol intoxication/ abuse, hyponatremia - replenishing Na slowly, up to 125, benzodiazepines for agitation. - [facility] protocol Qualifiers: Altered mental status type: delirium Qualified Code(s): R41.0 - Disorientation, unspecified (3) Pneumonia Current Visit: Yes Status: Ruled-out Assessment and plan: - CXR showed bilateral opacities concerning for PNA - Given chronic alcohol intoxication, concern for aspiration PNA - Day #2 unasyn and ceftriaxone. Qualifiers: Pneumonia type: aspiration pneumonia Aspiration pneumonia type: unspecified Laterality: bilateral Lung location: unspecified part of lung Qualified Code(s): J69.0 - Pneumonitis due to inhalation of food and vomit (4) Alcoholic intoxication Current Visit: Yes Status: Acute Assessment and plan: - History of chronic alcohol abuse. Last admitted drink was Wednesday morning - Denies history of DTs/ withdrawls - [place] protocol in effect, Ativan PRN agitation, librium 50 mg BID Qualifiers: Complication of substance-induced condition: with delirium Qualified Code(s ): F10.921 - Alcohol use, unspecified with intoxication delirium (5) Hypokalemia Current Visit: No Status: Acute Assessment and plan: - Replenished yesterday, follow-up with lab results are returned. (6) Urinary tract infection Current Visit: Yes Status: Acute Assessment and plan: - UA in ED showed large leukocyte esterase and too many WBC to count - Urine culture shows pansensitive enterobacter cloacae - Receiving Unasyn and rocephin Qualifiers: Urinary tract infection type: acute cystitis Hematuria presence: without hematuria Qualified Code(s): N30.00 - Acute cystitis without hematuria (7) Hypoxia Current Visit: Yes Status: Acute Assessment and plan: - patient was noted to be hypoxic at home per family - Normally wears O2 at home, today reports 3 L at home - ABG in ED showed respiratory acidosis. - Tolerating 2 L NC at 98% - Time Spent With Patient 25 - 35 minutes - Subjective Interval history: Patient was seen and examined this AM at bedside. He states he is feeling much better this morning, is more alert and aware. He denies any symptoms of confusion, tremors, seizure-like activity, chest pain, shortness of breath. He says he feels almost like his normal self. - Constitutional Vitals: Temp Pulse Resp BP Pulse Ox 97.8 F 83 20 135/71 93 01/12/17 07:01 01/12/17 07:01 01/12/17 07:01 01/12/17 07:01 01/12/17 07:01 Exam: Gen.: Vitals noted. No acute distress. AAOx2. Morbidly obese HEENT: PERRL/EOMI, oropharynx clear, Normocephalic, atraumatic Neck: Supple. No adenopathy. Cardiac: RRR, no murmur, +S1/S2 Pulmonary: CTA bilaterally, no wheezes, rales or rhonchi, equal chest expansion Abdomen: soft, nontender, BS noted, no guarding Back: Nontender throughout. MSK: ROM intact, no joint swelling noted Extremities: Venous stasis ulcers bilaterally. 1+ BLE edema, nontender calf, no cyanosis or clubbing Neuro: A&Ox2, moves all extremities, no focal deficits Psych: Appropriate mood and behavior Internal Medicine: Result - Labs CBC & Chem 7: 01/12/17 08:43 01/12/17 09:30 Labs: Short CBC 01/12/17 Range/Units 08:43 WBC 5.7 (4.3-11.1) K/mcL Hgb 12.7 L (12.9-16.9) g/dL Hct 39.0 (37.5-50.1) % Plt Count 180 (140-400) K/mcL BMP 01/11/17 01/11/17 01/11/17 12:49 16:12 21:04 Sodium 123 L 124 L 125 L - ABG Interpretation ABG results: ABG ABG pH 7.31 pH Units (7.32-7.45) L 01/10/17 20:40 ABG pCO2 63 mmHg (35-45) H 01/10/17 20:40 ABG pO2 133 mmHg (85-104) H 01/10/17 20:40 ABG O2 Saturation 99 % (95-98) H 01/10/17 20:40 PT/INR, D-dimer PT 13.5 Seconds (9.4-12.1) H 01/10/17 13:59 Consult Discharge Plan - Plan Referrals: Cristopher Harris [Non-Partnered Physician] - <Ruben Hahn - Last Filed: 01/12/17 16:34> Date of Encounter: 01/12/17 - Assessment and plan (1) Alcohol withdrawal Current Visit: Yes Status: Acute Qualifiers: Complication of substance-induced condition: with delirium Qualified Code(s ): F10.231 - Alcohol dependence with withdrawal delirium (2) Alcoholic intoxication Current Visit: Yes Status: Acute Qualifiers: Complication of substance-induced condition: with delirium Qualified Code(s ): F10.921 - Alcohol use, unspecified with intoxication delirium (3) Hyponatremia Current Visit: Yes Status: Chronic (4) Acute and chronic respiratory failure with hypoxia Current Visit: Yes Status: Acute (5) Pneumonia Current Visit: Yes Status: Ruled-out Qualifiers: Pneumonia type: aspiration pneumonia Aspiration pneumonia type: unspecified Laterality: bilateral Lung location: unspecified part of lung Qualified Code(s): J69.0 - Pneumonitis due to inhalation of food and vomit (6) Hypokalemia Current Visit: No Status: Acute (7) Urinary tract infection Current Visit: Yes Status: Acute Qualifiers: Urinary tract infection type: acute cystitis Hematuria presence: without hematuria Qualified Code(s): N30.00 - Acute cystitis without hematuria (8) CHF (congestive heart failure) Current Visit: Yes Status: Chronic Qualifiers: Congestive heart failure type: diastolic Congestive heart failure chronicity: chronic Qualified Code(s): I50.32 - Chronic diastolic (congestive ) heart failure - Time Spent With Patient My time today was 38min - Constitutional Vitals: Temp Pulse Resp BP Pulse Ox 97.6 F 73 16 121/71 99 01/12/17 11:14 01/12/17 11:14 01/12/17 11:14 01/12/17 11:14 01/12/17 11:14 Internal Medicine: Result - Labs CBC & Chem 7: 01/12/17 08:43 01/12/17 09:30 Labs: Short CBC 01/12/17 Range/Units 08:43 WBC 5.7 (4.3-11.1) K/mcL Hgb 12.7 L (12.9-16.9) g/dL Hct 39.0 (37.5-50.1) % Plt Count 180 (140-400) K/mcL BMP 01/11/17 01/11/17 01/12/17 16:12 21:04 09:30 Sodium 124 L 125 L 127 L Potassium 3.4 L Chloride 89 L Carbon Dioxide 33 H BUN 15 Creatinine 0.85 Glucose 113 H Calcium 8.6 - ABG Interpretation ABG results: ABG ABG pH 7.31 pH Units (7.32-7.45) L 01/10/17 20:40 ABG pCO2 63 mmHg (35-45) H 01/10/17 20:40 ABG pO2 133 mmHg (85-104) H 01/10/17 20:40 ABG O2 Saturation 99 % (95-98) H 01/10/17 20:40 PT/INR, D-dimer PT 13.5 Seconds (9.4-12.1) H 01/10/17 13:59 - Attending Attestation I examined this patient and my medical decision-making was reviewed with the Resident Physician on 01/12/17. I agree with the documented findings, disposition and treatment plan as described except to the extent set forth below. Mr Dumas is currently admitted for acute alcohol withdrawal and hyponatremia. He remains high risk due to potential for continued issues with withdrawal and electrolyte imbalance. Mr. Dumas is somewhat more somnolent today. He denies shakiness or other symptoms. His sodium is slowly increasing. No GI issues. No fever or chills. Overall appears to be clearing mentally. Exam Alert. Comfortable Disoriented to time currently No tremor Mucus membranes moist Heart reg No wheeze or rales Abd soft No edema I/P 1. Acute ETOH intoxication and withdrawal 2. Acute on chronic hypoxic resp failure 3. Hyponatremia Further diagnoses and plan as above.
[2017-01-12 09:59] LABS: BUN/Creatinine Ratio 18 (6-26); Blood Urea Nitrogen 15 mg/dL (8-26); Calcium 8.6 mg/dL (8.6-10.8); Carbon Dioxide 33 mEq/L (19-29); Chloride 89 mEq/L (98-109); Glucose 113 mg/dL (70-99); Osmolality,Calculated 266 (280-300); Potassium 3.4 mEq/L (3.5-4.5); Sodium 127 mEq/L (136-145); eGFR For African Americans > 60 (> 60); eGFR For Non-African Americans > 60 (> 60)
[2017-01-12] MEDS: Budesonide/Formoterol 160/4.5 MDI IH SCH ×2 (10:34→21:04)
[2017-01-13] MEDS: Ampicillin/Sulbactam 1,500 MG in 0.9 % Sodium Chloride Mini Bag 100 ML IVPB SCH ×3 (00:19→16:12)
[2017-01-13] MEDS: *HR* Heparin 5,000 UNIT/ML VIAL SQ SCH ×2 (06:03→17:19)
[2017-01-13 06:52] LABS: Hematocrit 40.8 % (37.5-50.1); Mean Corpuscular HGB Conc 31.9 g/dL (31.6-35.5); Mean Corpuscular Hemoglobin 29.7 pg (28.0-33.3); Mean Corpuscular Volume 93.4 fL (83.0-100.0); Mean Platelet Volume 9.7 fL (9.4-12.4); Platelet Count 161 K/mcL (140-400); Red Blood Count 4.37 M/mcL (4.19-5.50); Red Cell Distribution Width 13.2 % (11.5-14.5)
[2017-01-13 07:05] LABS: BUN/Creatinine Ratio 16 (6-26); Blood Urea Nitrogen 13 mg/dL (8-26); Calcium 8.7 mg/dL (8.6-10.8); Carbon Dioxide 33 mEq/L (19-29); Chloride 92 mEq/L (98-109); Glucose 87 mg/dL (70-99); Osmolality,Calculated 271 (280-300); Potassium 3.5 mEq/L (3.5-4.5); Sodium 131 mEq/L (136-145); eGFR For African Americans > 60 (> 60); eGFR For Non-African Americans > 60 (> 60)
[2017-01-13] MEDS: Gabapentin 400 MG CAPSULE PO SCH ×3 (07:48→21:23)
[2017-01-13] MEDS: Vitamin B Complex/Vit C/Vit E 1 EACH TABLET PO SCH (07:49)
[2017-01-13] MEDS: Metoprolol XL (24 HR) Succ 50 MG TAB.ER.24H PO SCH (07:51)
[2017-01-13] MEDS: Folic Acid 1 MG TABLET PO SCH (07:51)
[2017-01-13] MEDS: Thiamine (B-1) 100 MG TABLET PO SCH (07:51)
[2017-01-13] MEDS: Budesonide/Formoterol 160/4.5 MDI IH SCH ×2 (10:47→22:58)
--- NOTE | 2017-01-13 12:48 | Internal Med Progress Note ---
<Delmar Shah - Last Filed: 01/13/17 14:19> Date of Encounter: 01/13/17 Time of Encounter: 12:46 - Assessment and plan (1) Hyponatremia Current Visit: Yes Status: Chronic Assessment and plan: - Likely secondary to chronic alcohol use with dietary deficiencies. - Improved from yesterday with addition of salt tablets, fluid resection. 119 on admission to 131 today. - Fluid restrictions of 1500 mL. - Urine Na <20. Doubt salt wasting. - Will give sodium tablets, diet advance, fluid restrict and continue to monitor Na with morning and evening labs. - PT evaluation suggested SNF/ECF upon discharge, however patient is currently refusing. He states he is agreeable to home health if necessary. (2) Altered mental status Current Visit: Yes Status: Acute Assessment and plan: - Likely secondary to alcohol intoxication/ abuse, hyponatremia - AOx2, making more sense in his speech today. - replenishing Na slowly, up to 131, benzodiazepines for agitation. Decreased librium to 25 BID. Will hold Librium this evening, and assess in the morning. Not needing ativan - [facility] protocol Qualifiers: Altered mental status type: delirium Qualified Code(s): R41.0 - Disorientation, unspecified (3) Pneumonia Current Visit: Yes Status: Ruled-out Assessment and plan: - CXR showed bilateral opacities concerning for PNA - Given chronic alcohol intoxication, concern for aspiration PNA - Day #3 unasyn and ceftriaxone. Qualifiers: Pneumonia type: aspiration pneumonia Aspiration pneumonia type: unspecified Laterality: bilateral Lung location: unspecified part of lung Qualified Code(s): J69.0 - Pneumonitis due to inhalation of food and vomit (4) Alcoholic intoxication Current Visit: Yes Status: Acute Assessment and plan: - History of chronic alcohol abuse. Last admitted drink was Wednesday morning - Denies history of DTs/ withdrawls - [facility] protocol in effect, Ativan PRN agitation, holding Librium Qualifiers: Complication of substance-induced condition: with delirium Qualified Code(s ): F10.921 - Alcohol use, unspecified with intoxication delirium (5) Hypokalemia Current Visit: No Status: Acute Assessment and plan: - Replenished yesterday - Improved to 3.5 (6) Urinary tract infection Current Visit: Yes Status: Acute Assessment and plan: - UA in ED showed large leukocyte esterase and too many WBC to count - Urine culture shows pansensitive enterobacter cloacae - Receiving Unasyn and rocephin day 3 Qualifiers: Urinary tract infection type: acute cystitis Hematuria presence: without hematuria Qualified Code(s): N30.00 - Acute cystitis without hematuria (7) Hypoxia Current Visit: Yes Status: Acute Assessment and plan: - resolved. - patient was noted to be hypoxic at home per family - Normally wears O2 at home, today reports 3 L at home - ABG in ED showed respiratory acidosis. - Tolerating 2 L NC at 98% - Time Spent With Patient 25 - 35 minutes - Subjective Interval history: Patient was seen and examined this AM at bedside. He states he is feeling really good. He is wondering when he can return home. He denies confusion, numbness, tingling, fevers, chills, SOB. He is reportedly very weak since admission per nursing. - Constitutional Vitals: Temp Pulse Resp BP Pulse Ox 98.4 F 60 18 142/79 96 01/13/17 11:24 01/13/17 11:24 01/13/17 11:24 01/13/17 11:24 01/13/17 11:24 Exam: Gen.: Vitals noted. No acute distress. AAOx2 HEENT: PERRL/EOMI, oropharynx clear, Normocephalic, atraumatic. Dry mucous membranes Neck: Supple. No adenopathy. Cardiac: RRR, no murmur, +S1/S2 Pulmonary: CTA bilaterally, no wheezes, rales or rhonchi, equal chest expansion Abdomen: Distended, tympanic in upper quadrants. nontender, BS noted, no guarding Back: Nontender throughout. MSK: Grossly weak, bedbound Extremities: Left hip ulcer. Mild bilateral edema 1+, nontender calf, no cyanosis or clubbing Neuro: A&Ox2, moves all extremities, no focal deficits Psych: Appropriate mood and behavior Internal Medicine: Result - Labs CBC & Chem 7: 01/13/17 06:42 01/13/17 06:42 Labs: Short CBC 01/13/17 Range/Units 06:42 WBC 4.9 (4.3-11.1) K/mcL Hgb 13.0 (12.9-16.9) g/dL Hct 40.8 (37.5-50.1) % Plt Count 161 (140-400) K/mcL [facility] 01/13/17 06:42 Sodium 131 L Potassium 3.5 Chloride 92 L Carbon Dioxide 33 H BUN 13 Creatinine 0.81 Glucose 87 Calcium 8.7 - ABG Interpretation ABG results: ABG ABG pH 7.31 pH Units (7.32-7.45) L 01/10/17 20:40 ABG pCO2 63 mmHg (35-45) H 01/10/17 20:40 ABG pO2 133 mmHg (85-104) H 01/10/17 20:40 ABG O2 Saturation 99 % (95-98) H 01/10/17 20:40 PT/INR, D-dimer PT 13.5 Seconds (9.4-12.1) H 01/10/17 13:59 Consult Discharge Plan - Plan Referrals: Cristopher Harris [Non-Partnered Physician] - <Ruben Hahn - Last Filed: 01/13/17 17:46> Date of Encounter: 01/13/17 - Assessment and plan (1) Alcohol withdrawal Current Visit: Yes Status: Acute Assessment and plan: Slowly improving. Librium decreased and to be held tonight. Qualifiers: Complication of substance-induced condition: with delirium Qualified Code(s ): F10.231 - Alcohol dependence with withdrawal delirium (2) Alcoholic intoxication Current Visit: Yes Status: Acute Qualifiers: Complication of substance-induced condition: with delirium Qualified Code(s ): F10.921 - Alcohol use, unspecified with intoxication delirium (3) Hyponatremia Current Visit: Yes Status: Chronic (4) Decubitus ulcer of hip, stage 2 Current Visit: Yes Status: Acute Assessment and plan: Wound care eval and orders written. Qualifiers: Laterality: left Qualified Code(s): L89.222 - Pressure ulcer of left hip, stage 2 (5) Acute and chronic respiratory failure with hypoxia Current Visit: Yes Status: Acute Assessment and plan: Slowly improving as well. (6) Pneumonia Current Visit: Yes Status: Ruled-out Qualifiers: Pneumonia type: aspiration pneumonia Aspiration pneumonia type: unspecified Laterality: bilateral Lung location: unspecified part of lung Qualified Code(s): J69.0 - Pneumonitis due to inhalation of food and vomit (7) Hypokalemia Current Visit: No Status: Acute (8) Urinary tract infection Current Visit: Yes Status: Acute Qualifiers: Urinary tract infection type: acute cystitis Hematuria presence: without hematuria Qualified Code(s): N30.00 - Acute cystitis without hematuria (9) CHF (congestive heart failure) Current Visit: Yes Status: Chronic Qualifiers: Congestive heart failure type: diastolic Congestive heart failure chronicity: chronic Qualified Code(s): I50.32 - Chronic diastolic (congestive ) heart failure (10) Morbid obesity with BMI of 40.0-44.9, adult Current Visit: Yes Status: Chronic - Time Spent With Patient My time is 38min' - Constitutional Vitals: Temp Pulse Resp BP Pulse Ox 98 F 57 18 107/61 98 01/13/17 15:50 01/13/17 15:50 01/13/17 15:50 01/13/17 15:50 01/13/17 15:50 Internal Medicine: Result - Labs CBC & Chem 7: 01/13/17 06:42 01/13/17 06:42 Labs: Short CBC 01/13/17 Range/Units 06:42 WBC 4.9 (4.3-11.1) K/mcL Hgb 13.0 (12.9-16.9) g/dL Hct 40.8 (37.5-50.1) % Plt Count 161 (140-400) K/mcL BMP 01/13/17 06:42 Sodium 131 L Potassium 3.5 Chloride 92 L Carbon Dioxide 33 H BUN 13 Creatinine 0.81 Glucose 87 Calcium 8.7 - ABG Interpretation ABG results: ABG ABG pH 7.31 pH Units (7.32-7.45) L 01/10/17 20:40 ABG pCO2 63 mmHg (35-45) H 01/10/17 20:40 ABG pO2 133 mmHg (85-104) H 01/10/17 20:40 ABG O2 Saturation 99 % (95-98) H 01/10/17 20:40 PT/INR, D-dimer PT 13.5 Seconds (9.4-12.1) H 01/10/17 13:59 - Attending Attestation I examined this patient and my medical decision-making was reviewed with the Resident Physician on 01/13/17. I agree with the documented findings, disposition and treatment plan as described except to the extent set forth below. Mr. Dumas is currently admitted for hyponatremia and acute ETOH withdrawal. He remains moderate to high risk due to potential for worsening neurologic status. Mr. Dumas is more oriented today. He has been somnolent after taking the Librium. No fever or chills. No cough. No GI symptoms. Recommended to go to SNF and he is now agreeable. Exam Alert. Comfortable Mucus membranes moist Heart reg No wheeze. Diminished Abd soft I/P 1. Hyponatremia - slowly improving 2. Acute ETOH withdrawal - hold Librium Further diagnoses and plan as above. Anticipate will be ready for d/c to SNF tomorrow.
[2017-01-14] MEDS ORDERED: Ampicillin/Sulbactam 1,500 MG in 0.9 % Sodium Chloride Mini Bag 100 ML IVPB SCH
[2017-01-14] MEDS: Ampicillin/Sulbactam 1,500 MG in 0.9 % Sodium Chloride Mini Bag 100 ML IVPB SCH ×2 (00:41→05:56)
[2017-01-14 04:49] LABS: Hematocrit 36.6 % (37.5-50.1); Hemoglobin 11.7 g/dL (12.9-16.9); Mean Corpuscular Hemoglobin 30.2 pg (28.0-33.3); Mean Corpuscular Volume 94.3 fL (83.0-100.0); Platelet Count 179 K/mcL (140-400); Red Blood Count 3.88 M/mcL (4.19-5.50); Red Cell Distribution Width 13.4 % (11.5-14.5)
[2017-01-14 05:06] LABS: BUN/Creatinine Ratio 15 (6-26); Blood Urea Nitrogen 17 mg/dL (8-26); Calcium 8.7 mg/dL (8.6-10.8); Carbon Dioxide 32 mEq/L (19-29); Chloride 96 mEq/L (98-109); Glucose 114 mg/dL (70-99); Osmolality,Calculated 276 (280-300); Potassium 3.3 mEq/L (3.5-4.5); Sodium 132 mEq/L (136-145); eGFR For African Americans > 60 (> 60); eGFR For Non-African Americans > 60 (> 60)
[2017-01-14] MEDS: *HR* Heparin 5,000 UNIT/ML VIAL SQ SCH ×2 (05:57→18:04)
[2017-01-14] MEDS: Budesonide/Formoterol 160/4.5 MDI IH SCH ×2 (07:54→20:07)
[2017-01-14] MEDS: Gabapentin 400 MG CAPSULE PO SCH ×3 (08:33→22:27)
[2017-01-14] MEDS: Vitamin B Complex/Vit C/Vit E 1 EACH TABLET PO SCH (08:34)
[2017-01-14] MEDS: Folic Acid 1 MG TABLET PO SCH (08:34)
[2017-01-14] MEDS: Thiamine (B-1) 100 MG TABLET PO SCH (08:34)
[2017-01-14] MEDS: Metoprolol XL (24 HR) Succ 50 MG TAB.ER.24H PO SCH (08:34)
--- NOTE | 2017-01-14 11:41 | Internal Med Progress Note ---
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, d/c pending ECF placement (2) Pneumonia Current Visit: Yes Status: Ruled-out Assessment and plan: plan as listed above Qualifiers: Pneumonia type: aspiration pneumonia Aspiration pneumonia type: unspecified Laterality: bilateral Lung location: unspecified part of lung Qualified Code(s): J69.0 - Pneumonitis due to inhalation of food and vomit (3) Hypokalemia Current Visit: No Status: Acute Assessment and plan: K supplemented continue to monitor electrolytes and replace as needed (4) Alcoholic intoxication Current Visit: Yes Status: Acute Assessment and plan: No signs of alcohol withdrawal present at this time found to be intoxicated upon arrival social worker health services evaluation Qualifiers: Complication of substance-induced condition: with delirium Qualified Code(s ): F10.921 - Alcohol use, unspecified with intoxication delirium (5) DVT prophylaxis Current Visit: No Status: Acute Assessment and plan: Heparin SQ (6) Hyponatremia Current Visit: Yes Status: Acute Assessment and plan: Secondary to alcohol abuse Improving continue fluid restriction will continue to monitor (7) Morbid obesity with BMI of 40.0-44.9, adult Current Visit: Yes Status: Chronic (8) Urinary tract infection Current Visit: Yes Status: Acute Assessment and plan: continue abx urine culture positive for Enterobacter Cloacae Qualifiers: Urinary tract infection type: acute cystitis Hematuria presence: without hematuria Qualified Code(s): N30.00 - Acute cystitis without hematuria (9) COPD (chronic obstructive pulmonary disease) Current Visit: Yes Status: Acute Assessment and plan: continue bronchodilator support O2 supplementation bipap support at bedtime Qualifiers: COPD type: unspecified COPD Qualified Code(s): J44.9 - Chronic obstructive pulmonary disease, unspecified (10) Obstructive sleep apnea Current Visit: Yes Status: Chronic Assessment and plan: continue bipap at bedtime - Subjective Interval history: Pt seen and examined at bedside. Noted to have diffuse wheezing, but patient denied any respiratory distress. reports of being on bipap support at home. No overnight issues reported. PT eval recommended ECF and patient in agreement. 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 Absent: chest wall tenderness, respiratory distress - Cardiovascular Cardiovascular exam: Present: RRR, +S1, +S2. Absent: diastolic murmur, gallop, rubs, systolic murmur - GI/Abdominal GI/Abdominal exam: Present: distended (obese), normal bowel sounds, soft, no peritoneal signs. Absent: tenderness - Extremities Exam Extremities exam: Present: pedal edema, warm, radial pulses palpable and symetrical. Absent: calf tenderness - Neurological Exam Neurological exam: Present: alert, oriented X3 - Psychiatric Psychiatric exam: Present: normal affect, normal mood Internal Medicine: Result - Labs CBC & Chem 7: 01/14/17 04:11 01/14/17 04:11 Labs: Short CBC 01/14/17 Range/Units 04:11 WBC 6.6 (4.3-11.1) K/mcL Hgb 11.7 L (12.9-16.9) g/dL Hct 36.6 L (37.5-50.1) % Plt Count 179 (140-400) K/mcL [facility] 01/14/17 04:11 Sodium 132 L Potassium 3.3 L Chloride 96 L Carbon Dioxide 32 H BUN 17 Creatinine 1.10 Glucose 114 H Calcium 8.7 - ABG Interpretation ABG results: ABG ABG pH 7.31 pH Units (7.32-7.45) L 01/10/17 20:40 ABG pCO2 63 mmHg (35-45) H 01/10/17 20:40 ABG pO2 133 mmHg (85-104) H 01/10/17 20:40 ABG O2 Saturation 99 % (95-98) H 01/10/17 20:40 PT/INR, D-dimer PT 13.5 Seconds (9.4-12.1) H 01/10/17 13:59 Consult Discharge Plan - Plan Referrals: Cristopher Harris [Non-Partnered Physician] -
[2017-01-14] MEDS: Ipratropium/Albuterol Neb 3 ML IH SCH ×4 (12:01→23:36)
[2017-01-14] MEDS: levoFLOXacin 750 MG TABLET PO SCH (18:04)
[2017-01-14 23:44] LABS: ABG Base Excess 4.8 mEq/L (-2.0 to 3.0); ABG HCO3 34.6 mEQ/L (21-27); ABG Oxygen Saturation 98 % (95-98); ABG PH 7.26 pH Units (7.32-7.45); ABG PO2 116 mmHg (85-104)
[2017-01-14 23:45] LABS: Blood Gas FiO2 35 %; Blood Gas PEEP 6 cm H2O; Blood Gas Respiration Rate 18
[2017-01-14 23:46] LABS: ABG PCO2 77 mmHg (35-45)
[2017-01-15] MEDS: Ipratropium/Albuterol Neb 3 ML IH SCH ×6 (04:35→23:16)
[2017-01-15] MEDS: *HR* Heparin 5,000 UNIT/ML VIAL SQ SCH ×2 (06:24→18:32)
[2017-01-15 06:27] LABS: Basophils % 0.4 %; Eosinophils # 0.2 K/mcL (0.0-0.6); Eosinophils % 4.6 %; Hematocrit 40.4 % (37.5-50.1); Hemoglobin 12.6 g/dL (12.9-16.9); Immature Granulocytes % 0.4 % (0-4); Lymphocytes # 0.9 K/mcL (0.6-4.6); Lymphocytes % 17.5 %; Mean Corpuscular HGB Conc 31.2 g/dL (31.6-35.5); Mean Corpuscular Volume 96.2 fL (83.0-100.0); Mean Platelet Volume 9.6 fL (9.4-12.4); Monocytes # 0.4 K/mcL (0.0-1.3); Monocytes % 8.1 %; Neutrophils # 3.4 K/mcL (1.6-8.9); Platelet Count 169 K/mcL (140-400); Red Cell Distribution Width 13.5 % (11.5-14.5)
[2017-01-15 06:42] LABS: BUN/Creatinine Ratio 19 (6-26); Blood Urea Nitrogen 21 mg/dL (8-26); Calcium 9.1 mg/dL (8.6-10.8); Carbon Dioxide 30 mEq/L (19-29); Chloride 97 mEq/L (98-109); Glucose 88 mg/dL (70-99); Magnesium 2.5 mg/dL (1.6-2.6); Osmolality,Calculated 282 (280-300); Potassium 3.3 mEq/L (3.5-4.5); Sodium 135 mEq/L (136-145); eGFR For African Americans > 60 (> 60); eGFR For Non-African Americans > 60 (> 60)
[2017-01-15] MEDS: Thiamine (B-1) 100 MG TABLET PO SCH (09:44)
[2017-01-15] MEDS: Metoprolol XL (24 HR) Succ 50 MG TAB.ER.24H PO SCH (09:44)
[2017-01-15] MEDS: levoFLOXacin 750 MG TABLET PO SCH (09:44)
[2017-01-15] MEDS: Vitamin B Complex/Vit C/Vit E 1 EACH TABLET PO SCH (09:44)
[2017-01-15] MEDS: Folic Acid 1 MG TABLET PO SCH (09:44)
[2017-01-15] MEDS: Budesonide/Formoterol 160/4.5 MDI IH SCH ×2 (11:20→23:16)
--- NOTE | 2017-01-15 12:15 | Internal Med Progress Note ---
Date of Encounter: 01/15/17 Time of Encounter: 12:13 - Assessment and plan (1) Acute and chronic respiratory failure with hypoxia Current Visit: Yes Status: Acute Assessment and plan: Secondary to PNA Continue PO levaquin Blood cultures reported no growth will treat for a total of 7 days pt reports of being at baseline respiratory status will continue O2 supplementation and bipap support at bedtime Noted to be lethargic secondary to worsening hypercapnia, started on bipap support, currently improving, will continue bipap support at this time with breaks for meals (2) Pneumonia Current Visit: Yes Status: Ruled-out Assessment and plan: plan as listed above Qualifiers: Pneumonia type: aspiration pneumonia Aspiration pneumonia type: unspecified Laterality: bilateral Lung location: unspecified part of lung Qualified Code(s): J69.0 - Pneumonitis due to inhalation of food and vomit (3) Hypokalemia Current Visit: No Status: Acute Assessment and plan: K supplemented continue to monitor electrolytes and replace as needed (4) Alcoholic intoxication Current Visit: Yes Status: Acute Assessment and plan: No signs of alcohol withdrawal present at this time 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 Qualifiers: Complication of substance-induced condition: with delirium Qualified Code(s ): F10.921 - Alcohol use, unspecified with intoxication delirium (5) DVT prophylaxis Current Visit: No Status: Acute Assessment and plan: Heparin SQ (6) Hyponatremia Current Visit: Yes Status: Acute Assessment and plan: Secondary to alcohol abuse Improving continue fluid restriction will continue to monitor (7) Morbid obesity with BMI of 40.0-44.9, adult Current Visit: Yes Status: Chronic (8) Urinary tract infection Current Visit: Yes Status: Acute Assessment and plan: continue abx urine culture positive for Enterobacter Cloacae Qualifiers: Urinary tract infection type: acute cystitis Hematuria presence: without hematuria Qualified Code(s): N30.00 - Acute cystitis without hematuria (9) COPD (chronic obstructive pulmonary disease) Current Visit: Yes Status: Acute Assessment and plan: continue bronchodilator support O2 supplementation bipap support all day today with breaks for meals Qualifiers: COPD type: unspecified COPD Qualified Code(s): J44.9 - Chronic obstructive pulmonary disease, unspecified (10) Obstructive sleep apnea Current Visit: Yes Status: Chronic Assessment and plan: continue bipap at bedtime - Subjective Interval history: Pt seen and examined at bedside. Noted to be lethargic overnight, held gabapentin and ABG consistent with respiratory acidosis with worsening hypercapia. On bipap support awake and alert restarted diet repeat ABG improving, will continue bipap support with breaks for meals. - Constitutional Vitals: Temp Pulse Resp BP Pulse Ox 97.9 F 68 16 135/66 100 01/15/17 11:31 01/15/17 11:31 01/15/17 11:31 01/15/17 11:31 01/15/17 11:31 General appearance: Present: A&O X 3, morbidly obese, no acute distress - Head Head exam: Present: atraumatic, normocephalic - Eye Eye exam: Present: conjuntiva pink, sclera anicteric - Respiratory Respiratory exam: Absent: wheezes (diminished breath sounds ) - Cardiovascular Cardiovascular exam: Present: RRR, +S1, +S2. Absent: diastolic murmur, gallop, rubs, systolic murmur - GI/Abdominal GI/Abdominal exam: Present: distended (obese), normal bowel sounds, soft. Absent: tenderness - Extremities Exam Extremities exam: Present: pedal edema, warm, radial pulses palpable and symetrical. Absent: calf tenderness (b/l heel ulcers) - Neurological Exam Neurological exam: Present: alert, oriented X3 (lethargic but awake) - Psychiatric Psychiatric exam: Present: normal affect, normal mood Internal Medicine: Result - Labs CBC & Chem 7: 01/15/17 06:03 01/15/17 06:03 Labs: Short CBC 01/15/17 Range/Units 06:03 WBC 5.0 (4.3-11.1) K/mcL Hgb 12.6 L (12.9-16.9) g/dL Hct 40.4 (37.5-50.1) % Plt Count 169 (140-400) K/mcL Neutrophils # 3.4 (1.6-8.9) K/mcL BMP 01/15/17 06:03 Sodium 135 L Potassium 3.3 L Chloride 97 L Carbon Dioxide 30 H BUN 21 Creatinine 1.12 Glucose 88 Calcium 9.1 - ABG Interpretation ABG results: ABG ABG pH 7.26 pH Units (7.32-7.45) L 01/14/17 23:26 ABG pCO2 77 mmHg (35-45) H* 01/14/17 23:26 ABG pO2 116 mmHg (85-104) H 01/14/17 23:26 ABG O2 Saturation 98 % (95-98) 01/14/17 23:26 PT/INR, D-dimer PT 13.5 Seconds (9.4-12.1) H 01/10/17 13:59 Consult Discharge Plan - Plan Referrals: Cristopher Harris [Non-Partnered Physician] -
[2017-01-15 13:08] LABS: ABG Base Excess 5.5 mEq/L (-2.0 to 3.0); ABG HCO3 34.8 mEQ/L (21-27); ABG Oxygen Saturation 95 % (95-98); ABG PH 7.28 pH Units (7.32-7.45); ABG PO2 87 mmHg (85-104); ABG TCO2 37.1 mEq/L (20-26)
[2017-01-15 13:09] LABS: ABG PCO2 74 mmHg (35-45)
[2017-01-15 13:10] LABS: Blood Gas FiO2 30 %
[2017-01-15] MEDS ORDERED: Gabapentin 400 MG CAPSULE PO SCH (15:00)
[2017-01-15] MEDS: Gabapentin 400 MG CAPSULE PO SCH ×2 (16:25→22:55)
[2017-01-15] MEDS: Furosemide 40 MG TABLET PO SCH (16:25)
[2017-01-16] MEDS: Ipratropium/Albuterol Neb 3 ML IH SCH ×5 (04:24→20:12)
[2017-01-16] MEDS: *HR* Heparin 5,000 UNIT/ML VIAL SQ SCH ×2 (05:06→18:20)
[2017-01-16] MEDS: Furosemide 40 MG TABLET PO SCH ×2 (09:23→18:20)
[2017-01-16] MEDS: levoFLOXacin 750 MG TABLET PO SCH (09:23)
[2017-01-16] MEDS: Thiamine (B-1) 100 MG TABLET PO SCH (09:23)
[2017-01-16] MEDS: Metoprolol XL (24 HR) Succ 50 MG TAB.ER.24H PO SCH (09:23)
[2017-01-16] MEDS: Vitamin B Complex/Vit C/Vit E 1 EACH TABLET PO SCH (09:23)
[2017-01-16] MEDS: Gabapentin 400 MG CAPSULE PO SCH ×3 (09:23→20:41)
[2017-01-16] MEDS: Folic Acid 1 MG TABLET PO SCH (09:23)
[2017-01-16] MEDS: Budesonide/Formoterol 160/4.5 MDI IH SCH ×2 (10:03→20:12)
[2017-01-16 10:10] LABS: ABG Base Excess 2.1 mEq/L (-2.0 to 3.0); ABG HCO3 30.8 mEQ/L (21-27); ABG Oxygen Saturation 98 % (95-98); ABG PCO2 67 mmHg (35-45); ABG PH 7.27 pH Units (7.32-7.45); ABG PO2 121 mmHg (85-104); ABG TCO2 32.9 mEq/L (20-26)
[2017-01-16 10:11] LABS: Blood Gas FiO2 30 %
[2017-01-16 12:02] LABS: BUN/Creatinine Ratio 21 (6-26); Blood Urea Nitrogen 21 mg/dL (8-26); Calcium 9.1 mg/dL (8.6-10.8); Carbon Dioxide 28 mEq/L (19-29); Chloride 100 mEq/L (98-109); Glucose 103 mg/dL (70-99); Magnesium 2.4 mg/dL (1.6-2.6); Osmolality,Calculated 289 (280-300); Phosphorous 3.1 mg/dL (2.3-4.7); Potassium 3.7 mEq/L (3.5-4.5); Sodium 138 mEq/L (136-145); eGFR For African Americans > 60 (> 60); eGFR For Non-African Americans > 60 (> 60)
[2017-01-16 12:03] LABS: Basophils % 0.2 %; Eosinophils # 0.2 K/mcL (0.0-0.6); Eosinophils % 3.4 %; Hematocrit 40.6 % (37.5-50.1); Hemoglobin 12.2 g/dL (12.9-16.9); Immature Granulocytes % 0.6 % (0-4); Lymphocytes # 0.7 K/mcL (0.6-4.6); Lymphocytes % 12.8 %; Mean Corpuscular Hemoglobin 28.9 pg (28.0-33.3); Mean Corpuscular Volume 96.2 fL (83.0-100.0); Mean Platelet Volume 9.6 fL (9.4-12.4); Monocytes # 0.5 K/mcL (0.0-1.3); Monocytes % 8.7 %; Neutrophils # 3.9 K/mcL (1.6-8.9); Platelet Count 185 K/mcL (140-400); Red Blood Count 4.22 M/mcL (4.19-5.50); Red Cell Distribution Width 13.7 % (11.5-14.5); Segmented Neutrophils % 74.3 %
--- NOTE | 2017-01-16 13:50 | Internal Med Progress Note ---
Date of Encounter: 01/16/17 Time of Encounter: 12:15 - Assessment and plan (1) Acute and chronic respiratory failure with hypoxia Current Visit: Yes Status: Acute Assessment and plan: Secondary to PNA Continue PO levaquin Blood cultures reported no growth will treat for a total of 10 days pt reports of being at baseline respiratory status will continue O2 supplementation and bipap support at bedtime Hypercapnia improving, will continue bipap support, mental status improving compared to previous day (2) Pneumonia Current Visit: Yes Status: Ruled-out Assessment and plan: plan as listed above Qualifiers: Pneumonia type: aspiration pneumonia Aspiration pneumonia type: unspecified Laterality: bilateral Lung location: unspecified part of lung Qualified Code(s): J69.0 - Pneumonitis due to inhalation of food and vomit (3) Hypokalemia Current Visit: No Status: Resolved (4) Alcoholic intoxication Current Visit: Yes Status: Acute Assessment and plan: No signs of alcohol withdrawal present at this time 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 Qualifiers: Complication of substance-induced condition: with delirium Qualified Code(s ): F10.921 - Alcohol use, unspecified with intoxication delirium (5) DVT prophylaxis Current Visit: No Status: Acute Assessment and plan: Heparin SQ (6) Hyponatremia Current Visit: Yes Status: Resolved Assessment and plan: Secondary to alcohol abuse Resolved continue fluid restriction will continue to monitor (7) Morbid obesity with BMI of 40.0-44.9, adult Current Visit: Yes Status: Chronic (8) Urinary tract infection Current Visit: Yes Status: Acute Assessment and plan: continue abx urine culture positive for Enterobacter Cloacae Qualifiers: Urinary tract infection type: acute cystitis Hematuria presence: without hematuria Qualified Code(s): N30.00 - Acute cystitis without hematuria (9) COPD (chronic obstructive pulmonary disease) Current Visit: Yes Status: Acute Assessment and plan: continue bronchodilator support O2 supplementation bipap support Qualifiers: COPD type: unspecified COPD Qualified Code(s): J44.9 - Chronic obstructive pulmonary disease, unspecified (10) Obstructive sleep apnea Current Visit: Yes Status: Chronic Assessment and plan: continue bipap at bedtime - Subjective Interval history: Pt seen and examined at bedside. Mental status improved from previous day. Pt states he feels more comfortable with bipap support. No overnight issues reported. ABG improving from previous day - Constitutional Vitals: Temp Pulse Resp BP Pulse Ox 96.6 F L 67 16 133/81 96 01/16/17 11:15 01/16/17 11:15 01/16/17 11:15 01/16/17 11:15 01/16/17 11:15 General appearance: Present: A&O X 3, morbidly obese, no acute distress - Head Head exam: Present: atraumatic, normocephalic - Eye Eye exam: Present: conjuntiva pink, sclera anicteric - Respiratory Respiratory exam: Absent: respiratory distress, wheezes - Cardiovascular Cardiovascular exam: Present: RRR, +S1, +S2. Absent: diastolic murmur, gallop, rubs, systolic murmur - GI/Abdominal GI/Abdominal exam: Present: distended (obese), normal bowel sounds, soft, no peritoneal signs. Absent: tenderness - Extremities Exam Extremities exam: Present: pedal edema, warm, radial pulses palpable and symetrical. Absent: calf tenderness - Neurological Exam Neurological exam: Present: alert, oriented X3 - Psychiatric Psychiatric exam: Present: normal affect, normal mood Internal Medicine: Result - Labs CBC & Chem 7: 01/16/17 11:47 01/16/17 11:47 Labs: Short CBC 01/16/17 Range/Units 11:47 WBC 5.3 (4.3-11.1) K/mcL Hgb 12.2 L (12.9-16.9) g/dL Hct 40.6 (37.5-50.1) % Plt Count 185 (140-400) K/mcL Neutrophils # 3.9 (1.6-8.9) K/mcL BMP 01/16/17 11:47 Sodium 138 Potassium 3.7 Chloride 100 Carbon Dioxide 28 BUN 21 Creatinine 1.02 Glucose 103 H Calcium 9.1 - ABG Interpretation ABG results: ABG ABG pH 7.27 pH Units (7.32-7.45) L 01/16/17 10:01 ABG pCO2 67 mmHg (35-45) H 01/16/17 10:01 ABG pO2 121 mmHg (85-104) H 01/16/17 10:01 ABG O2 Saturation 98 % (95-98) 01/16/17 10:01 PT/INR, D-dimer PT 13.5 Seconds (9.4-12.1) H 01/10/17 13:59 Consult Discharge Plan - Plan Referrals: Cristopher Harris [Non-Partnered Physician] -
[2017-01-17] MEDS: Ipratropium/Albuterol Neb 3 ML IH SCH ×6 (03:47→20:58)
[2017-01-17 04:48] LABS: Basophils % 0.3 %; Eosinophils # 0.2 K/mcL (0.0-0.6); Eosinophils % 2.6 %; Hematocrit 40.8 % (37.5-50.1); Hemoglobin 12.9 g/dL (12.9-16.9); Immature Granulocytes % 0.4 % (0-4); Lymphocytes % 13.2 %; Mean Corpuscular HGB Conc 31.6 g/dL (31.6-35.5); Mean Corpuscular Hemoglobin 29.9 pg (28.0-33.3); Mean Corpuscular Volume 94.4 fL (83.0-100.0); Mean Platelet Volume 9.7 fL (9.4-12.4); Monocytes % 13.9 %; Platelet Count 173 K/mcL (140-400); Red Blood Count 4.32 M/mcL (4.19-5.50); Red Cell Distribution Width 13.7 % (11.5-14.5); Segmented Neutrophils % 69.6 %
[2017-01-17 04:57] LABS: BUN/Creatinine Ratio 21 (6-26); Blood Urea Nitrogen 23 mg/dL (8-26); Carbon Dioxide 28 mEq/L (19-29); Chloride 101 mEq/L (98-109); Glucose 110 mg/dL (70-99); Magnesium 2.3 mg/dL (1.6-2.6); Osmolality,Calculated 284 (280-300); Phosphorous 3.1 mg/dL (2.3-4.7); Potassium 3.8 mEq/L (3.5-4.5); Sodium 135 mEq/L (136-145); eGFR For African Americans > 60 (> 60); eGFR For Non-African Americans > 60 (> 60)
[2017-01-17] MEDS: *HR* Heparin 5,000 UNIT/ML VIAL SQ SCH ×2 (06:33→17:28)
[2017-01-17] MEDS: Budesonide/Formoterol 160/4.5 MDI IH SCH ×2 (07:59→20:58)
[2017-01-17] MEDS: Furosemide 40 MG TABLET PO SCH ×2 (09:59→17:28)
[2017-01-17] MEDS: Metoprolol XL (24 HR) Succ 50 MG TAB.ER.24H PO SCH (09:59)
[2017-01-17] MEDS: Vitamin B Complex/Vit C/Vit E 1 EACH TABLET PO SCH (10:00)
[2017-01-17] MEDS: Folic Acid 1 MG TABLET PO SCH (10:00)
[2017-01-17] MEDS: Thiamine (B-1) 100 MG TABLET PO SCH (10:00)
[2017-01-17] MEDS: Gabapentin 400 MG CAPSULE PO SCH ×3 (10:00→21:37)
[2017-01-17] MEDS: levoFLOXacin 750 MG TABLET PO SCH (10:00)
[2017-01-17 10:28] LABS: ABG Base Excess 2.6 mEq/L (-2.0 to 3.0); ABG HCO3 30.8 mEQ/L (21-27); ABG Oxygen Saturation 98 % (95-98); ABG PCO2 64 mmHg (35-45); ABG PH 7.29 pH Units (7.32-7.45); ABG PO2 124 mmHg (85-104); ABG TCO2 32.8 mEq/L (20-26)
[2017-01-17 10:30] LABS: Blood Gas FiO2 30 %
--- NOTE | 2017-01-17 13:22 | Internal Med Progress Note ---
Date of Encounter: 01/17/17 Time of Encounter: 10:10 - Assessment and plan (1) Acute and chronic respiratory failure with hypoxia Current Visit: Yes Status: Acute Assessment and plan: Secondary to PNA Continue levaquin Blood cultures reported no growth will treat for a total of 10 days pt reports of being at baseline respiratory status but continues to remain acidotic on ABG will continue O2 supplementation and bipap support at bedtime Hypercapnia improving, will continue bipap support, mental status improving compared to previous day (2) Pneumonia Current Visit: Yes Status: Ruled-out Assessment and plan: plan as listed above Qualifiers: Pneumonia type: aspiration pneumonia Aspiration pneumonia type: unspecified Laterality: bilateral Lung location: unspecified part of lung Qualified Code(s): J69.0 - Pneumonitis due to inhalation of food and vomit (3) Hypokalemia Current Visit: No Status: Resolved (4) Alcoholic intoxication Current Visit: Yes Status: Acute Assessment and plan: No signs of alcohol withdrawal present at this time found to be intoxicated upon arrival Qualifiers: Complication of substance-induced condition: with delirium Qualified Code(s ): F10.921 - Alcohol use, unspecified with intoxication delirium (5) DVT prophylaxis Current Visit: No Status: Acute Assessment and plan: Heparin SQ (6) Hyponatremia Current Visit: Yes Status: Resolved (7) Morbid obesity with BMI of 40.0-44.9, adult Current Visit: Yes Status: Chronic (8) Urinary tract infection Current Visit: Yes Status: Acute Assessment and plan: continue abx urine culture positive for Enterobacter Cloacae Qualifiers: Urinary tract infection type: acute cystitis Hematuria presence: without hematuria Qualified Code(s): N30.00 - Acute cystitis without hematuria (9) COPD (chronic obstructive pulmonary disease) Current Visit: Yes Status: Acute Assessment and plan: continue bronchodilator support O2 supplementation bipap support Qualifiers: COPD type: unspecified COPD Qualified Code(s): J44.9 - Chronic obstructive pulmonary disease, unspecified (10) Obstructive sleep apnea Current Visit: Yes Status: Chronic Assessment and plan: continue bipap at bedtime - Subjective Interval history: Pt seen and examined at bedside. More awake and alert but remains somnolent. Pt requesting bipap support himself. No overnight issues reported. - Constitutional Vitals: Temp Pulse Resp BP Pulse Ox 97.3 F L 66 17 109/68 100 07/30/17 12:00 01/17/17 12:00 01/17/17 12:00 01/17/17 12:00 01/17/17 12:00 General appearance: Present: A&O X 3 (awake but somnolent, easily arousable ), morbidly obese, no acute distress - Head Head exam: Present: atraumatic, normocephalic - Eye Eye exam: Present: conjuntiva pink, sclera anicteric - Respiratory Respiratory exam: Absent: respiratory distress, wheezes - Cardiovascular Cardiovascular exam: Present: RRR, +S1, +S2. Absent: diastolic murmur, gallop, rubs, systolic murmur - GI/Abdominal GI/Abdominal exam: Present: distended (obese), normal bowel sounds, soft. Absent: tenderness - Extremities Exam Extremities exam: Present: warm, radial pulses palpable and symetrical. Absent : calf tenderness - Neurological Exam Neurological exam: Present: alert, oriented X3 Internal Medicine: Result - Labs CBC & Chem 7: 01/17/17 04:24 01/17/17 04:24 Labs: Short CBC 01/17/17 Range/Units 04:24 WBC 7.2 (4.3-11.1) K/mcL Hgb 12.9 (12.9-16.9) g/dL Hct 40.8 (37.5-50.1) % Plt Count 173 (140-400) K/mcL Neutrophils # 5.0 (1.6-8.9) K/mcL BMP 01/17/17 04:24 Sodium 135 L Potassium 3.8 Chloride 101 Carbon Dioxide 28 BUN 23 Creatinine 1.10 Glucose 110 H Calcium 9.0 - ABG Interpretation ABG results: ABG ABG pH 7.29 pH Units (7.32-7.45) L 01/17/17 10:20 ABG pCO2 64 mmHg (35-45) H 01/17/17 10:20 ABG pO2 124 mmHg (85-104) H 01/17/17 10:20 ABG O2 Saturation 98 % (95-98) 01/17/17 10:20 PT/INR, D-dimer PT 13.5 Seconds (9.4-12.1) H 01/10/17 13:59 Consult Discharge Plan - Plan Referrals: Cristopher Harris [Non-Partnered Physician] -
[2017-01-18] MEDS: Ipratropium/Albuterol Neb 3 ML IH SCH ×7 (00:30→23:38)
[2017-01-18] MEDS: *HR* Heparin 5,000 UNIT/ML VIAL SQ SCH ×2 (04:58→17:18)
[2017-01-18 05:18] LABS: ABG Base Excess 2.1 mEq/L (-2.0 to 3.0); ABG HCO3 30.8 mEQ/L (21-27); ABG Oxygen Saturation 98 % (95-98); ABG PCO2 67 mmHg (35-45); ABG PH 7.27 pH Units (7.32-7.45); ABG PO2 120 mmHg (85-104); ABG TCO2 32.9 mEq/L (20-26)
[2017-01-18 05:20] LABS: Blood Gas FiO2 30 %
[2017-01-18 05:21] LABS: Blood Gas PEEP 6 cm H2O; Blood Gas Respiration Rate 22
[2017-01-18 06:18] LABS: Basophils % 0.4 %; Eosinophils # 0.1 K/mcL (0.0-0.6); Eosinophils % 2.6 %; Hematocrit 43.3 % (37.5-50.1); Hemoglobin 13.1 g/dL (12.9-16.9); Immature Granulocytes % 0.5 % (0-4); Lymphocytes # 0.6 K/mcL (0.6-4.6); Lymphocytes % 10.2 %; Mean Corpuscular HGB Conc 30.3 g/dL (31.6-35.5); Mean Corpuscular Hemoglobin 29.4 pg (28.0-33.3); Mean Corpuscular Volume 97.3 fL (83.0-100.0); Mean Platelet Volume 9.5 fL (9.4-12.4); Monocytes # 0.4 K/mcL (0.0-1.3); Monocytes % 6.8 %; Neutrophils # 4.4 K/mcL (1.6-8.9); Platelet Count 171 K/mcL (140-400); Red Blood Count 4.45 M/mcL (4.19-5.50); Red Cell Distribution Width 13.7 % (11.5-14.5); Segmented Neutrophils % 79.5 %
[2017-01-18 06:33] LABS: BUN/Creatinine Ratio 21 (6-26); Blood Urea Nitrogen 24 mg/dL (8-26); Calcium 9.4 mg/dL (8.6-10.8); Carbon Dioxide 28 mEq/L (19-29); Chloride 104 mEq/L (98-109); Glucose 102 mg/dL (70-99); Magnesium 1.9 mg/dL (1.6-2.6); Osmolality,Calculated 292 (280-300); Phosphorous 3.1 mg/dL (2.3-4.7); Potassium 3.1 mEq/L (3.5-4.5); Sodium 139 mEq/L (136-145); eGFR For African Americans > 60 (> 60); eGFR For Non-African Americans > 60 (> 60)
[2017-01-18] MEDS: Furosemide 40 MG TABLET PO SCH ×2 (09:00→17:18)
[2017-01-18] MEDS: Thiamine (B-1) 100 MG TABLET PO SCH (09:00)
[2017-01-18] MEDS: Folic Acid 1 MG TABLET PO SCH (09:00)
[2017-01-18] MEDS: Vitamin B Complex/Vit C/Vit E 1 EACH TABLET PO SCH (09:00)
[2017-01-18] MEDS: Gabapentin 400 MG CAPSULE PO SCH ×2 (09:00→17:18)
[2017-01-18] MEDS: Metoprolol XL (24 HR) Succ 50 MG TAB.ER.24H PO SCH (09:00)
[2017-01-18] MEDS: Budesonide/Formoterol 160/4.5 MDI IH SCH ×2 (09:29→20:01)
--- NOTE | 2017-01-18 11:18 | Discharge Summary ---
Date of Encounter: 01/18/17 Time of Encounter: 11:12 - Discharge Diagnosis (1) Acute and chronic respiratory failure with hypoxia Priority: Primary Status: Acute (2) Pneumonia Priority: Primary Status: Ruled-out Qualifiers: Pneumonia type: aspiration pneumonia Aspiration pneumonia type: unspecified Laterality: bilateral Lung location: unspecified part of lung Qualified Code(s): J69.0 - Pneumonitis due to inhalation of food and vomit (3) Hypokalemia Priority: Secondary Status: Resolved (4) Alcoholic intoxication Priority: Secondary Status: Acute Qualifiers: Complication of substance-induced condition: with delirium Qualified Code(s ): F10.921 - Alcohol use, unspecified with intoxication delirium (5) DVT prophylaxis Priority: Secondary Status: Acute (6) Hyponatremia Priority: Secondary Status: Resolved (7) Morbid obesity with BMI of 40.0-44.9, adult Priority: Secondary Status: Chronic (8) Urinary tract infection Priority: Secondary Status: Acute Qualifiers: Urinary tract infection type: acute cystitis Hematuria presence: without hematuria Qualified Code(s): N30.00 - Acute cystitis without hematuria (9) COPD (chronic obstructive pulmonary disease) Priority: Secondary Status: Chronic Qualifiers: COPD type: unspecified COPD Qualified Code(s): J44.9 - Chronic obstructive pulmonary disease, unspecified (10) Obstructive sleep apnea Priority: Secondary Status: Chronic - Discharge Medications Prescriptions: Gabapentin [Neurontin] 800 mg PO TID #30 HYDROcodone/Acet 7.5/325 mg [[place] 7.5-325 mg] 1 tab PO Q8H PRN #15 PRN Reason: Pain levoFLOXacin [Levaquin] 750 mg PO DAILY #2 tablet Home Medications: Atorvastatin [Lipitor] 40 mg PO HS 07/29/15 [History] Folic Acid 1 mg PO DAILY 07/29/15 [History] Furosemide [Lasix] 40 mg PO BID 07/29/15 [History] Sertraline [Zoloft] 150 mg PO QAM 07/29/15 [History] Albuterol Sulfate [Albuterol Inhaler] 2 puff IH Q4HR PRN 10/25/15 [History] Fluticasone Propionate Nasal [Flonase] 2 spray NS DAILY 7 Days 11/10/15 [Rx] Nitroglycerin [Nitrostat] 0.4 mg SL Q5-10MIN PRN 30 Days 12/05/15 [Rx] Budesonide/Formoterol 160/4.5 [Symbicort 160/4.5] 2 puff IH BIDR 01/10/17 [ History] Omeprazole [PriLOSEC] 40 mg PO DAILY 01/10/17 [History] Oxygen 1 each .ROUTE AD 01/10/17 [History] Folic Acid 1 mg PO DAILY tab 01/18/17 [Rx] Furosemide [Lasix] 40 mg PO BIDDIURETIC tab 01/18/17 [Rx] Gabapentin [Neurontin] 800 mg PO TID #30 01/18/17 [Rx] HYDROcodone/Acet 7.5/325 mg [[place] 7.5-325 mg] 1 tab PO Q8H PRN #15 01/18/17 [ Rx] Ipratropium/Albuterol Neb [Duoneb] 3 ml IH [id number] inh 01/18/17 [Rx] Metoprolol XL (24 HR) Succ [Toprol Xl] 50 mg PO DAILY 01/18/17 [Rx] Thiamine (B-1) [Vitamin B-1] 100 mg PO DAILY tab 01/18/17 [Rx] Triamterene/HCTZ 37.5/25mg [Dyazide] 1 tab PO DAILY #0 01/18/17 [Rx] Vitamin B Complex/Vit C/Vit E [Stresstab] 1 each PO DAILY tab 01/18/17 [Rx] levoFLOXacin [Levaquin] 750 mg PO DAILY #2 tablet 01/18/17 [Rx] Allergies/Adverse Reactions: Allergies azithromycin [From Zithromax] Allergy (Verified 01/10/17 13:39) Rash Date of admission: 01/10/17 19:31 Primary care physician: PCP NONE Consults: 01/10/17 20:10 Consult to Nutrition [CONS] Routine Comment: ETOH abuse Consulting Provider: NUTRITION Reason for Dietary Consult: Other MST Score 01/12/17 11:38 Consult to Occupational Therapy [CONS] Routine Comment: Evaluate, develop and implement POC Reason for Consult: evaluate and plan Consult to Physical Therapy [CONS] Routine Comment: Evaluate, develop and implement POC Reason for Consult: evaluate for discharge planning 01/13/17 10:29 Consult to Wound Care [CONS] Routine Reason for Consult: Patient has multiple open pressure ulcers to left hip and thigh. Time Notified: 10:30 Call Completed: Yes Discharging clinician: Kasandra Humphrey Anticipated date of discharge: 01/18/17 - Patient Status Disposition: Transfer SNF Condition: Fair Functional capacity at discharge: uses cane/walker Overall status at discharge: patient is back to baseline - Discharge Instructions Follow Up With: Cristopher Harris [Non-Partnered Physician] - Additional Instructions: Please follow up with your primary care physician within five days after your discharge from the hospital. Your home medications have been re-evaluated. Please take the medications as prescribed. Please continue oral antibiotics for two more days. Please continue bipap support at bedtime and as needed during the day. Closely monitor your Blood pressure, if SBP<100, hold your blood pressure medications. - Diet and Activity Activity: as per physical therapy, wear oxygen at all times Diet: diabetic diet, low fat, low cholesterol, low salt diet Hospital course: Mr. Dumas is a 61 year old male with PMH of alcoholism, heart failure, venous stasis, SHALINI, COPD on LTOT, HTN, and morbid obesity who was admitted for management of AMS secondary to alcohol intoxication. He was further found to have hyponatremia, acute on chronic respiratory failure with hypercapnia, UTI, and PNA. He was started on empiric IV abx, CIWA protocol, IV fluids. He responded appropriately to therapy. His home medications were readjusted and all sedative medications were placed on hold until his mental status improved. He was evaluated by physical therapy and ECF was recommended. Pt also qualified for bipap and O2 support on discharged. At this time, patient is at his baseline mental status. He will be discharged to ECF with follow up with PCP. - Time Spent with Patient Total time spent providing and/or coordinating discharge services: Greater than 30 minutes - Constitutional Vitals: Temp Pulse Resp BP Pulse Ox 98 F 66 16 106/61 100 01/18/17 07:23 01/18/17 07:23 01/18/17 07:23 01/18/17 07:23 01/18/17 07:23 General appearance: Present: A&O X 3 (awake but somnolent, easily arousable ), morbidly obese, no acute distress - Head Head exam: Present: atraumatic, normocephalic - Eye Eye exam: Present: conjuntiva pink, sclera anicteric - Respiratory Respiratory exam: Absent: respiratory distress, wheezes - Cardiovascular Cardiovascular exam: Present: RRR, +S1, +S2. Absent: diastolic murmur, gallop, rubs, systolic murmur - GI/Abdominal GI/Abdominal exam: Present: distended (obese), normal bowel sounds, soft, no peritoneal signs. Absent: tenderness - Extremities Exam Extremities exam: Present: pedal edema, warm, radial pulses palpable and symetrical. Absent: calf tenderness - Neurological Exam Neurological exam: Present: alert, oriented X3 - Psychiatric Psychiatric exam: Present: normal affect, normal mood
[2017-01-18] MEDS: levoFLOXacin 750 MG TABLET PO SCH (14:32)
--- NOTE | 2017-01-18 15:16 | Physician Discharge Referral ---
ExtendedCare Referral Info Transfer To: [facility] Provider in Charge after Transfer: PCP - Diagnosis (1) Acute and chronic respiratory failure with hypoxia Priority: Primary Status: Acute (2) Pneumonia Priority: Primary Status: Ruled-out (3) Hypokalemia Priority: Secondary Status: Resolved (4) Alcoholic intoxication Priority: Secondary Status: Acute (5) DVT prophylaxis Priority: Secondary Status: Acute (6) Hyponatremia Priority: Secondary Status: Resolved (7) Morbid obesity with BMI of 40.0-44.9, adult Priority: Secondary Status: Chronic (8) Urinary tract infection Priority: Secondary Status: Acute (9) COPD (chronic obstructive pulmonary disease) Priority: Secondary Status: Chronic (10) Obstructive sleep apnea Priority: Secondary Status: Chronic - Transfer Medications Prescriptions: Gabapentin [Neurontin] 800 mg PO TID #30 HYDROcodone/Acet 7.5/325 mg [[place] 7.5-325 mg] 1 tab PO Q8H PRN #15 PRN Reason: Pain levoFLOXacin [Levaquin] 750 mg PO DAILY #2 tablet Home Medications: Atorvastatin [Lipitor] 40 mg PO HS 07/29/15 [History] Folic Acid 1 mg PO DAILY 07/29/15 [History] Furosemide [Lasix] 40 mg PO BID 07/29/15 [History] Sertraline [Zoloft] 150 mg PO QAM 07/29/15 [History] Albuterol Sulfate [Albuterol Inhaler] 2 puff IH Q4HR PRN 10/25/15 [History] Fluticasone Propionate Nasal [Flonase] 2 spray NS DAILY 7 Days 11/10/15 [Rx] Nitroglycerin [Nitrostat] 0.4 mg SL Q5-10MIN PRN 30 Days 12/05/15 [Rx] Budesonide/Formoterol 160/4.5 [Symbicort 160/4.5] 2 puff IH BIDR 01/10/17 [ History] Omeprazole [PriLOSEC] 40 mg PO DAILY 01/10/17 [History] Oxygen 1 each .ROUTE AD 01/10/17 [History] Folic Acid 1 mg PO DAILY tab 01/18/17 [Rx] Furosemide [Lasix] 40 mg PO BIDDIURETIC tab 01/18/17 [Rx] Gabapentin [Neurontin] 800 mg PO TID #30 01/18/17 [Rx] HYDROcodone/Acet 7.5/325 mg [[place] 7.5-325 mg] 1 tab PO Q8H PRN #15 01/18/17 [ Rx] Ipratropium/Albuterol Neb [Duoneb] 3 ml IH [id number] inh 01/18/17 [Rx] Metoprolol XL (24 HR) Succ [Toprol Xl] 50 mg PO DAILY 01/18/17 [Rx] Thiamine (B-1) [Vitamin B-1] 100 mg PO DAILY tab 01/18/17 [Rx] Triamterene/HCTZ 37.5/25mg [Dyazide] 1 tab PO DAILY #0 01/18/17 [Rx] Vitamin B Complex/Vit C/Vit E [Stresstab] 1 each PO DAILY tab 01/18/17 [Rx] levoFLOXacin [Levaquin] 750 mg PO DAILY #2 tablet 01/18/17 [Rx] Allergies/Adverse Reactions: Allergies azithromycin [From Zithromax] Allergy (Verified 01/10/17 13:39) Rash - Respiratory Orders Smoking Cessation: Smoking cessation has been advised. For more information, call the [place] Tobacco Quit Line at 8-127-TXHJ-NOW. - Rehabiliation Orders Other: Please follow up with your primary care physician within five days after your discharge from the hospital. Your home medications have been re-evaluated. Please take the medications as prescribed. Please continue oral antibiotics for two more days. Please continue bipap support at bedtime and as needed during the day. Closely monitor your Blood pressure, if SBP<100, hold your blood pressure medications. CERTIFICATION: I certify that the transfer of the above named patient to an Extended Care Facility is necessary for the continuing treatment of the diagnosis listed. The above information is true and accurate reflection of patient's current condition. Confidential - Redisclosure prohibited without a patient's written consent.
[2017-01-19] MEDS: Ipratropium/Albuterol Neb 3 ML IH SCH ×4 (04:14→16:17)
[2017-01-19] MEDS: Gabapentin 400 MG CAPSULE PO SCH ×2 (06:44→09:04)
[2017-01-19] MEDS: *HR* Heparin 5,000 UNIT/ML VIAL SQ SCH (06:46)
[2017-01-19] MEDS: Furosemide 40 MG TABLET PO SCH (09:03)
[2017-01-19] MEDS: levoFLOXacin 750 MG TABLET PO SCH (09:03)
[2017-01-19] MEDS: Thiamine (B-1) 100 MG TABLET PO SCH (09:03)
[2017-01-19] MEDS: Metoprolol XL (24 HR) Succ 50 MG TAB.ER.24H PO SCH (09:03)
[2017-01-19] MEDS: Vitamin B Complex/Vit C/Vit E 1 EACH TABLET PO SCH (09:03)
[2017-01-19] MEDS: Folic Acid 1 MG TABLET PO SCH (09:04)
[2017-01-19] MEDS: Budesonide/Formoterol 160/4.5 MDI IH SCH (11:05)
[2017-01-19 15:49] VITALS: BP 128/66
--- NOTE | 2017-01-19 19:09 | Internal Med Progress Note ---
Date of Encounter: 01/19/17 Time of Encounter: 19:07 - Assessment and plan (1) Pneumonia Current Visit: Yes Status: Ruled-out Assessment and plan: plan as listed above Qualifiers: Pneumonia type: aspiration pneumonia Aspiration pneumonia type: unspecified Laterality: bilateral Lung location: unspecified part of lung Qualified Code(s): J69.0 - Pneumonitis due to inhalation of food and vomit (2) Hyponatremia Current Visit: Yes Status: Chronic Assessment and plan: - Likely secondary to chronic alcohol use with dietary deficiencies. - Improved from yesterday with addition of salt tablets, fluid resection. 119 on admission to 131 today. - Fluid restrictions of 1500 mL. - Urine Na <20. Doubt salt wasting. - Will give sodium tablets, diet advance, fluid restrict and continue to monitor Na with morning and evening labs. - PT evaluation suggested SNF/ECF upon discharge, however patient is currently refusing. He states he is agreeable to home health if necessary. (3) DVT prophylaxis Current Visit: No Status: Acute (4) Morbid obesity with BMI of 50.0-59.9, adult Current Visit: Yes Status: Acute (5) Alcohol withdrawal Current Visit: Yes Status: Acute Qualifiers: Complication of substance-induced condition: with delirium Qualified Code(s ): F10.231 - Alcohol dependence with withdrawal delirium (6) COPD (chronic obstructive pulmonary disease) Current Visit: Yes Status: Chronic Qualifiers: COPD type: unspecified COPD Qualified Code(s): J44.9 - Chronic obstructive pulmonary disease, unspecified - Subjective Interval history: In no acute distress awake and comfortable awaiting long term placement - Constitutional Vitals: Temp Pulse Resp BP Pulse Ox 97.9 F 82 16 128/66 99 01/19/17 15:47 01/19/17 15:47 01/19/17 16:17 01/19/17 15:47 01/19/17 16:17 General appearance: Present: A&O X 3 (awake but somnolent, easily arousable ), morbidly obese, no acute distress - Head Head exam: Present: atraumatic, normocephalic - Eye Eye exam: Present: PERRL, conjuntiva pink, sclera anicteric Pupils: Present: PERRL - Neck Neck exam general surgery: Present: supple, trachea midline. Absent: lymphadenopathy - Respiratory Respiratory exam: Present: CTAB. Absent: accessory muscle use, rales, rhonchi, wheezes - Cardiovascular Cardiovascular exam: Present: RRR, +S1, +S2. Absent: diastolic murmur, gallop, rubs, systolic murmur - GI/Abdominal GI/Abdominal exam: Present: normal bowel sounds, soft, no peritoneal signs. Absent: distended, tenderness - Extremities Exam Extremities exam: Present: warm, radial pulses palpable and symetrical. Absent : calf tenderness, cyanotic, pedal edema - Neurological Exam Neurological exam: Present: CN II-XII intact, oriented X3, no focal deficits. Absent: pronater drift, facial droop, speech deficit - Skin Skin exam: Present: dry, intact Internal Medicine: Result - Labs CBC & Chem 7: 01/18/17 05:38 01/18/17 05:38 - ABG Interpretation ABG results: ABG ABG pH 7.27 pH Units (7.32-7.45) L 01/18/17 05:10 ABG pCO2 67 mmHg (35-45) H 01/18/17 05:10 ABG pO2 120 mmHg (85-104) H 01/18/17 05:10 ABG O2 Saturation 98 % (95-98) 01/18/17 05:10 PT/INR, D-dimer PT 13.5 Seconds (9.4-12.1) H 01/10/17 13:59 Consult Discharge Plan - Plan Instructions: Hydrocodone/Acetaminophen (By mouth), Gabapentin (By mouth), Levofloxacin (By mouth), Heart Failure (DC), Chest Pain (DC), Urinary Tract Infection in Men (DC), Chronic Obstructive Pulmonary Disease (DC), Abuse of Alcohol (DC), Abuse of Alcohol (GEN), Anemia (GEN), Fall Prevention (DC) Additional Instructions: Please follow up with your primary care physician within five days after your discharge from the hospital. Your home medications have been re-evaluated. Please take the medications as prescribed. Please continue oral antibiotics for two more days. Please continue bipap support at bedtime and as needed during the day. Closely monitor your Blood pressure, if SBP<100, hold your blood pressure medications. Referrals: Cristopher Harris [Non-Partnered Physician] - Prescriptions: Gabapentin [Neurontin] 800 mg PO TID #30 HYDROcodone/Acet 7.5/325 mg [[place] 7.5-325 mg] 1 tab PO Q8H PRN #15 PRN Reason: Pain levoFLOXacin [Levaquin] 750 mg PO DAILY #2 tablet
== END 2017-01-19 18:00 | DRG 775 ==
LOC: 2ANU 13:32 → EMEROO 13:32 → 2ANU 19:10 → SUATTDRO 19:31 → 2NENU 01-13 23:43
PROVIDERS: ADMIT Nurse Practitioner Family; ATTEND Internal Medicine

== ENCOUNTER 2017-01-20 17:35 | Inpatient (IN) ==
--- NOTE | 2017-01-20 17:41 | Emergency Department Note ---
Disposition Clinical Impression: Ileus, GI bleed, Anemia, NICKI (acute kidney injury), Ascites, HCAP (healthcare- associated pneumonia) Disposition: Admitted As Inpatient Condition: Fair General Adult HPI - General Chief complaint: ED Weakness Stated complaint: lethargic Time Seen by Provider: 01/20/17 17:36 - Related Data Home Medications Medication Instructions Recorded Confirmed Atorvastatin [Lipitor] 40 mg PO HS 07/29/15 01/20/17 Sertraline [Zoloft] 150 mg PO QAM 07/29/15 01/20/17 Albuterol Sulfate [Albuterol 2 puff IH Q4HR PRN 10/25/15 01/20/17 Inhaler] Budesonide/Formoterol 160/4.5 2 puff IH BIDR 01/10/17 01/20/17 [Symbicort 160/4.5] Omeprazole [PriLOSEC] 40 mg PO DAILY 01/10/17 01/20/17 Oxygen 1 each .ROUTE AD 01/10/17 01/20/17 Nitroglycerin [Nitrostat] 0.4 mg SL Q5M PRN 01/20/17 01/20/17 Previous Rx's Medication Instructions Recorded Fluticasone Propionate Nasal 2 spray NS DAILY 7 Days 11/10/15 [Flonase] Folic Acid 1 mg PO DAILY tab 01/18/17 Furosemide [Lasix] 40 mg PO BIDDIURETIC tab 01/18/17 Gabapentin [Neurontin] 800 mg PO TID #30 01/18/17 HYDROcodone/Acet 7.5/325 mg [[place] 1 tab PO Q8H PRN #15 01/18/17 7.5-325 mg] Ipratropium/Albuterol Neb [Duoneb] 3 ml IH [id number] inh 01/18/17 Metoprolol XL (24 HR) Succ [Toprol 50 mg PO DAILY 01/18/17 Xl] Thiamine (B-1) [Vitamin B-1] 100 mg PO DAILY tab 01/18/17 Triamterene/HCTZ 37.5/25mg 1 tab PO DAILY #0 01/18/17 [Dyazide] Vitamin B Complex/Vit C/Vit E 1 each PO DAILY tab 01/18/17 [Stresstab] levoFLOXacin [Levaquin] 750 mg PO DAILY #2 tablet 01/18/17 Allergies Allergy/AdvReac Type Severity Reaction Status Date / Time azithromycin [From Zithromax] Allergy Rash Verified 01/10/17 13:39 Past Medical History - Past Medical History Medical history: Reports: COPD, hypertension, other Surgical history: Reports: other (Abdominal hernia repair) Psychiatric history: Reports: no psych history - Social History Smoking Status: Never smoker Smokeless Tobacco Status: No Alcohol use: Reports: unknown Drug use: Reports: none Course Vital Signs Temperature 98.4 F 01/20/17 17:37 Pulse Rate 74 01/20/17 17:37 Respiratory Rate 18 01/20/17 17:37 Blood Pressure 109/67 01/20/17 17:37 O2 Sat by Pulse Oximetry 96 01/20/17 17:37 Temperature 98.8 F 01/22/17 06:44 Pulse Rate 72 01/22/17 06:44 Respiratory Rate 34 01/22/17 06:44 Blood Pressure 144/87 01/22/17 06:44 O2 Sat by Pulse Oximetry 99 01/22/17 06:44 Oxygen Delivery Oxygen Delivery Nasal Cannula Medical Decision Making - Lab Data Result diagrams: 01/22/17 05:02 01/22/17 05:02 Lab Results 01/20/17 01/20/17 01/20/17 Range/Units 18:12 18:12 18:12 WBC 6.5 (4.3-11.1) K/mcL RBC 3.71 L (4.19-5.50) M/mcL Hgb 10.8 L D (12.9-16.9) g/dL Hct 35.8 L (37.5-50.1) % MCV 96.5 (83.0-100.0) fL MCH 29.1 (28.0-33.3) pg MCHC 30.2 L (31.6-35.5) g/dL RDW 13.8 (11.5-14.5) % Plt Count 186 (140-400) K/mcL MPV 9.6 (9.4-12.4) fL Immature Gran % 0.3 (0-4) % Seg Neutrophils % 77.1 % Lymphocytes % 11.8 % Monocytes % 7.8 % Eosinophils % 2.5 % Basophils % 0.5 % Neutrophils # 5.0 (1.6-8.9) K/mcL Lymphocytes # 0.8 (0.6-4.6) K/mcL Monocytes # 0.5 (0.0-1.3) K/mcL Eosinophils # 0.2 (0.0-0.6) K/mcL Basophils # 0.0 (0.0-0.2) K/mcL Nucleated RBCs/100 WBC 0.3 H (0) /100 WBC PT 16.2 H (9.4-12.1) Seconds INR 1.5 APTT 34.1 (26.0-36.0) Seconds Sodium 136 (136-145) mEq/L Potassium 3.0 L (3.5-4.5) mEq/L Chloride 103 (98-109) mEq/L Carbon Dioxide 26 (19-29) mEq/L BUN 37 H D (8-26) mg/dL Creatinine 1.66 H (0.72-1.25) mg/dL Est GFR ( Amer) 51 L (> 60) Est GFR (Non-Af Amer) 42 L (> 60) BUN/Creatinine Ratio 22 (6-26) Glucose 100 H (70-99) mg/dL Calculated Osmolality 291 (280-300) Calcium 8.9 (8.6-10.8) mg/dL Total Bilirubin 0.8 (0.2-1.2) mg/dL Direct Bilirubin 0.4 (0.0-0.5) mg/dL Indirect Bilirubin 0.4 (0.0-1.2) mg/dL AST 24 (5-34) Units/L ALT 10 (0-55) Units/L Alkaline Phosphatase 74 (38-126) Units/L Ammonia (18-72) mcmol/L Serum Total Protein 7.5 (6.0-8.3) g/dL Albumin 2.7 L (3.5-5.0) g/dL Globulin 4.8 H (2.4-3.5) g/dL Albumin/Globulin Ratio 0.6 L (1.1-2.2) Stool Occult Blood (Negative) 01/20/17 01/20/17 Range/Units 18:12 18:34 WBC (4.3-11.1) K/mcL RBC (4.19-5.50) M/mcL Hgb (12.9-16.9) g/dL Hct (37.5-50.1) % MCV (83.0-100.0) fL MCH (28.0-33.3) pg MCHC (31.6-35.5) g/dL RDW (11.5-14.5) % Plt Count (140-400) K/mcL MPV (9.4-12.4) fL Immature Gran % (0-4) % Seg Neutrophils % % Lymphocytes % % Monocytes % % Eosinophils % % Basophils % % Neutrophils # (1.6-8.9) K/mcL Lymphocytes # (0.6-4.6) K/mcL Monocytes # (0.0-1.3) K/mcL Eosinophils # (0.0-0.6) K/mcL Basophils # (0.0-0.2) K/mcL Nucleated RBCs/100 WBC (0) /100 WBC PT (9.4-12.1) Seconds INR APTT (26.0-36.0) Seconds Sodium (136-145) mEq/L Potassium (3.5-4.5) mEq/L Chloride (98-109) mEq/L Carbon Dioxide (19-29) mEq/L BUN (8-26) mg/dL Creatinine (0.72-1.25) mg/dL Est GFR ( Amer) (> 60) Est GFR (Non-Af Amer) (> 60) BUN/Creatinine Ratio (6-26) Glucose (70-99) mg/dL Calculated Osmolality (280-300) Calcium (8.6-10.8) mg/dL Total Bilirubin (0.2-1.2) mg/dL Direct Bilirubin (0.0-0.5) mg/dL Indirect Bilirubin (0.0-1.2) mg/dL AST (5-34) Units/L ALT (0-55) Units/L Alkaline Phosphatase (38-126) Units/L Ammonia 40 (18-72) mcmol/L Serum Total Protein (6.0-8.3) g/dL Albumin (3.5-5.0) g/dL Globulin (2.4-3.5) g/dL Albumin/Globulin Ratio (1.1-2.2) Stool Occult Blood Positive A (Negative) Attestation Statement - Attestation Attestation: I examined this patient and my medical decision-making was reviewed with the Resident Physician. I agree with the documented findings, disposition and treatment plan as described except to the extent set forth below. [id number] time provided Patient arrives from the extended care facility by EMS. He was recently admitted there due to generalized weakness, debility, alcoholism. He is alert, lucid, oriented on exam. He denies complaints of abdominal pain but staff conveyed concern for increased abdominal girth. He has a nontender abdominal exam. We also conveyed concern for confusion. Home medication list reviewed by me
[2017-01-20 18:21] LABS: Basophils % 0.5 %; Eosinophils # 0.2 K/mcL (0.0-0.6); Eosinophils % 2.5 %; Hematocrit 35.8 % (37.5-50.1); Hemoglobin 10.8 g/dL (12.9-16.9); Immature Granulocytes % 0.3 % (0-4); Lymphocytes # 0.8 K/mcL (0.6-4.6); Lymphocytes % 11.8 %; Mean Corpuscular HGB Conc 30.2 g/dL (31.6-35.5); Mean Corpuscular Hemoglobin 29.1 pg (28.0-33.3); Mean Corpuscular Volume 96.5 fL (83.0-100.0); Mean Platelet Volume 9.6 fL (9.4-12.4); Monocytes # 0.5 K/mcL (0.0-1.3); Monocytes % 7.8 %; Nucleated Red Blood Cells 0.3 /100 WBC (0); Platelet Count 186 K/mcL (140-400); Red Blood Count 3.71 M/mcL (4.19-5.50); Red Cell Distribution Width 13.8 % (11.5-14.5); Segmented Neutrophils % 77.1 %
[2017-01-20 18:24] LABS: INR 1.5; Prothrombin Time 16.2 Seconds (9.4-12.1)
[2017-01-20 18:27] LABS: Activated Partial Thrombo Time 34.1 Seconds (26.0-36.0)
[2017-01-20 18:33] LABS: Albumin 2.7 g/dL (3.5-5.0); Albumin/Globulin Ratio 0.6 (1.1-2.2); Bilirubin,Direct 0.4 mg/dL (0.0-0.5); Bilirubin,Indirect 0.4 mg/dL (0.0-1.2); Bilirubin,Total 0.8 mg/dL (0.2-1.2); Calcium 8.9 mg/dL (8.6-10.8); Globulin 4.8 g/dL (2.4-3.5); Total Protein 7.5 g/dL (6.0-8.3)
--- NOTE | 2017-01-20 18:43 | Emergency Department Note ---
Disposition Clinical Impression: Ileus, NICKI (acute kidney injury), HCAP (healthcare-associated pneumonia) GI bleed Qualifiers: GI bleed type/associated pathology: unspecified gastrointestinal hemorrhage type Qualified Code(s): K92.2 - Gastrointestinal hemorrhage, unspecified Anemia Qualifiers: Anemia type: unspecified type Qualified Code(s): D64.9 - Anemia, unspecified Ascites Qualifiers: Ascites type: other type Qualified Code(s): R18.8 - Other ascites Disposition: Admitted As Inpatient Condition: Fair Time of Disposition: 20:24 General Adult HPI - General Chief complaint: ED Altered Mental Status Stated complaint: lethargic Time Seen by Provider: 01/20/17 17:36 Source: patient, family, EMS Mode of arrival: EMS Limitations: no limitations Nursing Notes Reviewed: Yes Vital Signs Reviewed: Yes - History of Present Illness HPI Narrative: 61-year-old male history of COPD, alcohol abuse presents to the ED via EMS from [facility] for concern of distended abdomen. Patient denies any abdominal pain. He does report the belly appears bigger than before. Per EMS report he has been acting more lethargic as well as increase in his abdominal girth since 11 AM. Patient was recently admitted to [facility] 1 day ago after being discharged from [place] for delirium tremens. He is awake alert and oriented to person place and time. His Kemi is in the room states this is his normal acting self. He has been resisting his BiPAP at the [place] [facility]. He is normally on 3 L home oxygen supplementation and is currently 97%. Denies any fever, chills or recent illness. Denies any chest pain, shortness of breath, headache, abdominal pain, nausea, vomiting, or diarrhea. Denies any difficulty urinating, blood in the stool, black tarry stools or hemoptysis. History of hernia repair with mesh no other abdominal surgeries. Due to his alcohol history will check ammonia level. Reports 5-8 24 ounce beers per day. Also check basic labs. He denies a history of hepatitis or liver issues. Patient is afebrile. Pain Scale: 0 - Related Data Home Medications Medication Instructions Recorded Confirmed Atorvastatin [Lipitor] 40 mg PO HS 07/29/15 01/20/17 Sertraline [Zoloft] 150 mg PO QAM 07/29/15 01/20/17 Albuterol Sulfate [Albuterol 2 puff IH Q4HR PRN 10/25/15 01/20/17 Inhaler] Budesonide/Formoterol 160/4.5 2 puff IH BIDR 01/10/17 01/20/17 [Symbicort 160/4.5] Omeprazole [PriLOSEC] 40 mg PO DAILY 01/10/17 01/20/17 Oxygen 1 each .ROUTE AD 01/10/17 01/20/17 Nitroglycerin [Nitrostat] 0.4 mg SL Q5M PRN 01/20/17 01/20/17 Previous Rx's Medication Instructions Recorded Fluticasone Propionate Nasal 2 spray NS DAILY 7 Days 11/10/15 [Flonase] Folic Acid 1 mg PO DAILY tab 01/18/17 Furosemide [Lasix] 40 mg PO BIDDIURETIC tab 01/18/17 Gabapentin [Neurontin] 800 mg PO TID #30 01/18/17 HYDROcodone/Acet 7.5/325 mg [[place] 1 tab PO Q8H PRN #15 01/18/17 7.5-325 mg] Ipratropium/Albuterol Neb [Duoneb] 3 ml IH [id number] inh 01/18/17 Metoprolol XL (24 HR) Succ [Toprol 50 mg PO DAILY 01/18/17 Xl] Thiamine (B-1) [Vitamin B-1] 100 mg PO DAILY tab 01/18/17 Triamterene/HCTZ 37.5/25mg 1 tab PO DAILY #0 01/18/17 [Dyazide] Vitamin B Complex/Vit C/Vit E 1 each PO DAILY tab 01/18/17 [Stresstab] levoFLOXacin [Levaquin] 750 mg PO DAILY #2 tablet 01/18/17 Allergies Allergy/AdvReac Type Severity Reaction Status Date / Time azithromycin [From Zithromax] Allergy Rash Verified 01/10/17 13:39 All systems ED: reviewed and negative except as stated. Review of Systems: As Per HPI Constitutional: Denies: fever, chills Cardiovascular: Denies: chest pain Respiratory: Denies: cough, dyspnea Gastrointestinal: Denies: abdominal pain, nausea, vomiting, hematemesis, melena , hematochezia Genitourinary: Denies: urgency, dysuria Musculoskeletal: Denies: back pain, neck pain Integumentary: Denies: rash, abrasion Neurological: Denies: headache, weakness Endocrine: Reports: fatigue Past Medical History - Past Medical History Attestation: Yes The following information was validated with the patient. Source: patient, old records reviewed Medical history: Reports: COPD, hypertension, other Surgical history: Reports: other (Abdominal hernia repair) Psychiatric history: Reports: no psych history - Social History Smoking Status: Never smoker Smokeless Tobacco Status: No Alcohol use: Reports: unknown Drug use: Reports: none Physical Exam - General Limitations: no limitations General appearance: alert, in no apparent distress - Head Head exam: atraumatic, normocephalic, normal inspection - Eye Eye exam: Present: normal appearance, PERRL, EOMI. Absent: scleral icterus - ENT ENT exam: normal exam, normal oropharynx, mucous membranes moist - Chest Chest inspection: Present: normal inspection, symmetric chest wall rise. Absent : tenderness - Respiratory Respiratory exam: Present: normal lung sounds bilaterally. Absent: respiratory distress, wheezes - Cardiovascular Cardiovascular exam: Present: regular rate, normal rhythm, normal heart sounds - Abdominal Exam Abdominal exam: Present: soft, Non-Tender, distention, diminished bowel sounds. Absent: tenderness, guarding, rebound, rigidity, ascites, mass - Rectal Exam Rectal exam: Present: normal inspection, normal rectal tone. Absent: black stool, bloody stool - Extremities Exam Extremities exam: Present: normal inspection, full ROM, normal capillary refill. Absent: tenderness, pedal edema - Neurological Exam Neurological exam: Present: alert, oriented X3 - Psychiatric Psychiatric exam: Present: normal affect, normal mood - Skin Skin exam: Present: warm, dry, intact, normal color Course - Reevaluation(s) Reevaluation #1: Patient's abdomen does appear distended. No obvious ascites. He is not septic appearing. Bedside ultrasound was performed does not show significant fluid. Patients afebrile without any tenderness. Do not suspect spontaneous bacterial peritonitis but will check ammonia level basic labs. Critical lab of [place] hemoglobin 10.8 from prior 13.1. Concern for possible abdominal bleed. His creatinine is elevated 1.66. BUN is elevated as well. Stool Hemoccult checked. Time: 18:44 Reevaluation #2: Patient remains hemodynamically stable. Stool Hemoccult positive. Ammonia level 40 within normal limits. With the increase in BUN and drop in hemoglobin will get a CT of the abdomen and pelvis without contrast to evaluate for any collection of fluid in the belly. Patient will likely need admission. Impression is abdominal distention, anemia, G.I. bleed and acute kidney injury. Time: 19:10 Reevaluation #3: CT of the abdomen and pelvis revealed generalized ileus. There is also signs of bilateral pneumonia. With his recent hospitalization will treat for healthcare associated pneumonia. Will get what cultures and treat with vancomycin, Zosyn, and Levoquin. Will have pharmacy to dose due to NICKI. Additional impression bilateral pneumonia and ascites likely secondary to alcoholism. Potassium replete is with 40 mEq potassium chloride. Time: 20:46 - Consultations Consultation #1: Spoke with on-call hospitalist davy Méndez to admit for ileus, ascites, GI bleed anemia, bilateral pneumonia, and HCAP. No further orders at this time Time: 20:45 Vital Signs Temperature 98.4 F 01/20/17 17:37 Pulse Rate 74 01/20/17 17:37 Respiratory Rate 18 01/20/17 17:37 Blood Pressure 109/67 01/20/17 17:37 O2 Sat by Pulse Oximetry 96 01/20/17 17:37 Temperature 98.4 F 01/20/17 17:37 Pulse Rate 71 01/20/17 18:42 Respiratory Rate 18 01/20/17 18:42 Blood Pressure 118/71 01/20/17 18:42 O2 Sat by Pulse Oximetry 97 01/20/17 18:42 Oxygen Delivery Oxygen Delivery Room Air Medical Decision Making - Medical Records Medical records reviewed: Yes I reviewed the patient's medical records. - Lab Data Lab results reviewed: Yes I reviewed the patient's lab results. Result diagrams: 01/20/17 18:12 01/20/17 18:12 Lab Results 01/20/17 01/20/17 01/20/17 Range/Units 18:12 18:12 18:12 WBC 6.5 (4.3-11.1) K/mcL RBC 3.71 L (4.19-5.50) M/mcL Hgb 10.8 L D (12.9-16.9) g/dL Hct 35.8 L (37.5-50.1) % MCV 96.5 (83.0-100.0) fL MCH 29.1 (28.0-33.3) pg MCHC 30.2 L (31.6-35.5) g/dL RDW 13.8 (11.5-14.5) % Plt Count 186 (140-400) K/mcL MPV 9.6 (9.4-12.4) fL Immature Gran % 0.3 (0-4) % Seg Neutrophils % 77.1 % Lymphocytes % 11.8 % Monocytes % 7.8 % Eosinophils % 2.5 % Basophils % 0.5 % Neutrophils # 5.0 (1.6-8.9) K/mcL Lymphocytes # 0.8 (0.6-4.6) K/mcL Monocytes # 0.5 (0.0-1.3) K/mcL Eosinophils # 0.2 (0.0-0.6) K/mcL Basophils # 0.0 (0.0-0.2) K/mcL Nucleated RBCs/100 WBC 0.3 H (0) /100 WBC PT 16.2 H (9.4-12.1) Seconds INR 1.5 APTT 34.1 (26.0-36.0) Seconds Sodium 136 (136-145) mEq/L Potassium 3.0 L (3.5-4.5) mEq/L Chloride 103 (98-109) mEq/L Carbon Dioxide 26 (19-29) mEq/L BUN 37 H D (8-26) mg/dL Creatinine 1.66 H (0.72-1.25) mg/dL Est GFR ( Amer) 51 L (> 60) Est GFR (Non-Af Amer) 42 L (> 60) BUN/Creatinine Ratio 22 (6-26) Glucose 100 H (70-99) mg/dL Calculated Osmolality 291 (280-300) Calcium 8.9 (8.6-10.8) mg/dL Total Bilirubin 0.8 (0.2-1.2) mg/dL Direct Bilirubin 0.4 (0.0-0.5) mg/dL Indirect Bilirubin 0.4 (0.0-1.2) mg/dL AST 24 (5-34) Units/L ALT 10 (0-55) Units/L Alkaline Phosphatase 74 (38-126) Units/L Ammonia (18-72) mcmol/L Serum Total Protein 7.5 (6.0-8.3) g/dL Albumin 2.7 L (3.5-5.0) g/dL Globulin 4.8 H (2.4-3.5) g/dL Albumin/Globulin Ratio 0.6 L (1.1-2.2) Stool Occult Blood (Negative) 01/20/17 01/20/17 Range/Units 18:12 18:34 WBC (4.3-11.1) K/mcL RBC (4.19-5.50) M/mcL Hgb (12.9-16.9) g/dL Hct (37.5-50.1) % MCV (83.0-100.0) fL MCH (28.0-33.3) pg MCHC (31.6-35.5) g/dL RDW (11.5-14.5) % Plt Count (140-400) K/mcL MPV (9.4-12.4) fL Immature Gran % (0-4) % Seg Neutrophils % % Lymphocytes % % Monocytes % % Eosinophils % % Basophils % % Neutrophils # (1.6-8.9) K/mcL Lymphocytes # (0.6-4.6) K/mcL Monocytes # (0.0-1.3) K/mcL Eosinophils # (0.0-0.6) K/mcL Basophils # (0.0-0.2) K/mcL Nucleated RBCs/100 WBC (0) /100 WBC PT (9.4-12.1) Seconds INR APTT (26.0-36.0) Seconds Sodium (136-145) mEq/L Potassium (3.5-4.5) mEq/L Chloride (98-109) mEq/L Carbon Dioxide (19-29) mEq/L BUN (8-26) mg/dL Creatinine (0.72-1.25) mg/dL Est GFR ( Amer) (> 60) Est GFR (Non-Af Amer) (> 60) BUN/Creatinine Ratio (6-26) Glucose (70-99) mg/dL Calculated Osmolality (280-300) Calcium (8.6-10.8) mg/dL Total Bilirubin (0.2-1.2) mg/dL Direct Bilirubin (0.0-0.5) mg/dL Indirect Bilirubin (0.0-1.2) mg/dL AST (5-34) Units/L ALT (0-55) Units/L Alkaline Phosphatase (38-126) Units/L Ammonia 40 (18-72) mcmol/L Serum Total Protein (6.0-8.3) g/dL Albumin (3.5-5.0) g/dL Globulin (2.4-3.5) g/dL Albumin/Globulin Ratio (1.1-2.2) Stool Occult Blood Positive A (Negative) - Radiology Data Radiology results reviewed: Yes I reviewed the patient's radiology results. Abdomen/Pelvis CT 01/20/17 19:08 IMPRESSION: Generalized ileus, with disproportionate distention of the colon. Bilateral airspace disease, suspected pneumonia. Bilateral inguinal adenopathy, new in the interval. This is most likely reactive. Continued clinical surveillance is recommended. D/ / Ramone Velazquez MD / Ramone Velazquez MD Interpreting Provider: Ramone Velazquez MD - EKG Data EKG #1 EKG attestation: Yes I reviewed and interpreted this EKG. EKG results narrative: EKG performed 1739 normal sinus rhythm 75 bpm, normal axis, no ST elevations or depression, intervals are within normal limits RI interval 130 QRS 122 QT QTC 390 02/22/2027. No old EKG for comparison. No acute ischemic changes.
[2017-01-20] MEDS ORDERED: Pantoprazole 40 MG VIAL IVP ONE (19:08)
[2017-01-20] MEDS: Pantoprazole 40 MG in 0.9 % Sodium Chloride Mini Bag 100 ML IVC SCH (19:58)
[2017-01-20] MEDS ORDERED: Levofloxacin 750 MG/150 ML 750 MG/150 ML BAG IVPB ONE (20:49)
[2017-01-20] MEDS ORDERED: Piperacillin/Tazobactam 3.375 GM in D5% in Water (Mini-Bag+) 100 ML IVPB ONE (20:49)
[2017-01-20] MEDS ORDERED: Vancomycin 2,000 MG in D5% in Water 500 ML IVPB ONE (20:49)
[2017-01-20] MEDS ORDERED: Ondansetron 4 MG/2 ML VIAL IVP PRN (21:51)
[2017-01-20] MEDS ORDERED: Nitroglycerin 0.4 MG TAB.SUBL SL PRN (21:53)
--- NOTE | 2017-01-20 22:17 | Internal Med History&Physical ---
Date of Encounter: 01/21/17 Time of Encounter: 21:00 Assessment and Plan (1) Lethargy Current visit: Yes Status: Acute - Patient appears to be somnolent on encounter. - Likely multifactorial including hypercapnia, medications, anemia, ileus. - Doubt hepatic encephalopathy given normal serum ammonia level. - Will check ABG, TSH. - Will hold narcotic at this time. (2) Ileus Current visit: Yes Status: Acute - CT A/P showed generalized ileus with disproportionate distention of the colon. - Patient reports last bowel movement was 3 days prior to this admission. - Continue NPO and closely monitor. - Consider NG tube placement if patient develops significant nausea/vomiting. (3) Acute blood loss anemia Current visit: Yes Status: Acute - Hgb 10.8 on admission, which dropped from 13.1 on 01/18/17. - Likely secondary to GI bleed given positive stool occult test - Close monitor H&H. - Consider pRBC transfusion if Hgb < 7. (4) GI bleed Current visit: Yes Status: Acute - Acute blood loss anemia with positive stool occult test. - Continue IV PPI. - NPO - May consider GI scoping if it persists. Qualifiers: GI bleed type/associated pathology: unspecified gastrointestinal hemorrhage type Qualified Code(s): K92.2 - Gastrointestinal hemorrhage, unspecified (5) NICKI (acute kidney injury) Current visit: Yes Status: Acute - SCr 1.66, which increased from 1.17 on 01/18/17. - Likely prerenal (BUN/Cr ratio 22) secondary to hypoperfusion from dehydration and anemia. - Fluid resuscitation with IV NS. - Avoid nephrotoxin and hold home diuretics. - Continue to monitor renal function and electrolytes. (6) Hypokalemia Current visit: No Status: Acute - K 3.0 in ED and 40 meq of K supplement was given. - Will check Mg. - Continue to monitor and replenish accordingly. (7) Pneumonia Current visit: No Status: Suspected - Patient was treated with levofloxacin for pneumonia during prior hospitalization. - CT A/P on admission showed bilateral airspace disease, suspected pneumonia. - The CT A/P finding can be the residual inflammation from prior pneumonia. - But given the potential risk of aspiration pneumonia from ileus, will continue IV Zosyn for now. Qualifiers: Pneumonia type: aspiration pneumonia Aspiration pneumonia type: unspecified Laterality: bilateral Lung location: unspecified part of lung Qualified Code(s): J69.0 - Pneumonitis due to inhalation of food and vomit (8) COPD (chronic obstructive pulmonary disease) Current visit: No Status: Chronic - Continue bronchodilators and supplemental oxygen. Qualifiers: COPD type: unspecified COPD Qualified Code(s): J44.9 - Chronic obstructive pulmonary disease, unspecified (9) History of alcohol abuse Current visit: Yes Status: Acute - Patient reports last alcohol use was more tahn 8 days ago. Internal Medicine - H&P: HPI Chief complaint: abdominal distension Admitted From: Emergency Dept Plans for Post Hospital Care: Transfer [facility] History of present illness: Mr. Dumas is a 61 year old male with PMH of alcohol abuse, COPD on 3L home oxygen and HTN. Patient was recently hospitalized (01/10 - 01/18) for delirium tremens, hyponatremia and pneumonia, which was treated with Levaquin. Patient was sent from [facility] for abdominal distension and lethargy. Patient reports increase in abdominal size since his last bowel movement 3 days ago. Per patient, the bowel movement at that time was loosen with brown color and no blood noted. It's associated with abdominal pressure but patient denies nausea, vomiting, fever, chills. Patient reports breathing has improved since discharge and no cough. Patient reports last alcohol use was more than 8 days ago and he did not get any alcohol at long term. Patient is DNR-CCA-DNI Past Med Surg Social Fam HX - Past Medical History Medical history: COPD, hypertension, other Psychiatric history: no psych history - Past Surgical History Surgical History: herniorrhaphy (Abdominal hernia repair) - Social History Smoking Status: Never smoker Smokeless Tobacco Status: No Alcohol use: unknown Drug use: none - Family History Mother Living Status: Hx Family Cardiac Disorders: Yes Hx Family Respiratory Disorders: No Hx Family Cancer: No Hx Family GI Disorders: No Hx Family Endocrine Disorder: No Hx Family Neuromuscular Disorders: No Hx Family Neurologic Disorders: No Hx Family HEENT Disorders: No Hx Family Autoimmune Disorders: No Father Living Status: Hx Family Cardiac Disorders: No Hx Family Respiratory Disorders: No Hx Family Cancer: No Hx Family GI Disorders: No Hx Family Endocrine Disorder: No Hx Family Neuromuscular Disorders: No (ALS) Hx Family Neurologic Disorders: No Hx Family HEENT Disorders: No Hx Family Autoimmune Disorders: No Internal Medicine - H&P: Meds Atorvastatin [Lipitor] 40 mg PO HS 07/29/15 [History] Sertraline [Zoloft] 150 mg PO QAM 07/29/15 [History] Albuterol Sulfate [Albuterol Inhaler] 2 puff IH Q4HR PRN 10/25/15 [History] Fluticasone Propionate Nasal [Flonase] 2 spray NS DAILY 7 Days 11/10/15 [Rx] Budesonide/Formoterol 160/4.5 [Symbicort 160/4.5] 2 puff IH BIDR 01/10/17 [ History] Omeprazole [PriLOSEC] 40 mg PO DAILY 01/10/17 [History] Oxygen 1 each .ROUTE AD 01/10/17 [History] Folic Acid 1 mg PO DAILY tab 01/18/17 [Rx] Furosemide [Lasix] 40 mg PO BIDDIURETIC tab 01/18/17 [Rx] Gabapentin [Neurontin] 800 mg PO TID #30 01/18/17 [Rx] HYDROcodone/Acet 7.5/325 mg [[place] 7.5-325 mg] 1 tab PO Q8H PRN #15 01/18/17 [ Rx] Ipratropium/Albuterol Neb [Duoneb] 3 ml IH [id number] inh 01/18/17 [Rx] Metoprolol XL (24 HR) Succ [Toprol Xl] 50 mg PO DAILY 01/18/17 [Rx] Thiamine (B-1) [Vitamin B-1] 100 mg PO DAILY tab 01/18/17 [Rx] Triamterene/HCTZ 37.5/25mg [Dyazide] 1 tab PO DAILY #0 01/18/17 [Rx] Vitamin B Complex/Vit C/Vit E [Stresstab] 1 each PO DAILY tab 01/18/17 [Rx] levoFLOXacin [Levaquin] 750 mg PO DAILY #2 tablet 01/18/17 [Rx] Nitroglycerin [Nitrostat] 0.4 mg SL Q5M PRN 01/20/17 [History] Allergies azithromycin [From Zithromax] Allergy (Verified 01/10/17 13:39) Rash All Systems PM: A 10-system review of systems was performed and is negative for pertinent findings except as documented above in the HPI. - Constitutional Constitutional: lethargy, no chills, no fever(s) - EENT Eyes: no change in vision Ears: no decreased hearing Nose, mouth and throat: no dysphagia, no odynophagia - Cardiovascular Cardiovascular ROS IM: no chest pain, no diaphoresis, no syncope - Respiratory Respiratory: no cough, no dyspnea, no hemoptysis - Gastrointestinal Gastrointestinal: as per HPI, no hematochezia, no melena, no nausea, no vomiting - Genitourinary Genitourinary ROS male: no difficulty urinating, no dysuria, no hematuria - Musculoskeletal Musculoskeletal ROS IM: no arthralgias, no myalgias - Integumentary Integumentary IM: no pruritus, no rash - Neurological Neurological ROS: no focal weakness, no numbness, no tingling - Hematologic/Lymphatic Hematologic/Lymphatic: no easy bleeding, no easy bruising - Constitutional Vitals: Temp Pulse Resp BP Pulse Ox 98.4 F 71 20 109/62 97 01/20/17 17:37 01/20/17 18:42 01/20/17 22:07 01/20/17 22:07 01/20/17 18:42 General appearance: Present: cooperative, A&O X 3, answers questions appropriately Exam: Somnolent but arousable to verbal stimuli. - Head Head exam: Present: atraumatic, normocephalic - Eye Eye exam: Present: EOMI, PERRL, conjuntiva pink, sclera anicteric - Neck Neck exam general surgery: Present: supple, trachea midline. Absent: lymphadenopathy - Respiratory Respiratory exam: Present: decreased breath sounds. Absent: accessory muscle use, rales, rhonchi, wheezes - Cardiovascular Cardiovascular exam: Present: RRR, +S1, +S2. Absent: diastolic murmur, gallop, rubs, systolic murmur - GI/Abdominal GI/Abdominal exam: Present: diminished bowel sounds, distended, soft. Absent: tenderness - Extremities Exam Extremities exam: Present: pedal edema (Non-pitting BLE edema with appearance of venous stasis. ), warm, radial pulses palpable and symetrical. Absent: calf tenderness, cyanotic - Neurological Exam Neurological exam: Present: CN II-XII intact, oriented X3, no focal deficits. Absent: pronater drift, facial droop, speech deficit - Skin Skin exam: Present: dry, intact Internal Med - H&P Results - Labs CBC & Chem 7: 01/20/17 18:12 01/20/17 18:12
--- NOTE | 2017-01-20 22:43 | Event Note ---
Date of Encounter: 01/20/17 Time of Encounter: 22:40 Patient seen and examined with medical surgical tech. Patient just discharged from the hospital after alcohol withdrawal, presents from shelter with altered mental status. Patient is sleepy during my interview however arousal with verbal stimuli oriented times 3. Possibilities include hypercapnea vs. seizure versus toxic metabolic encephalopathy related to sepsis. Will check arterial blood gas, EEG, CT head. He is having an ileus and radiological evidence of pneumonia and may have aspirated. We will start the patient on Zosyn. He has acute kidney injury and will be hydrated. Slight hemoglobin dropped compared to baseline with positive occult blood in stool. He has an IV Protonix. Follow H&H. Keep NPO. He is full code
[2017-01-20 23:02] LABS: ABG Base Excess -0.6 mEq/L (-2.0 to 3.0); ABG HCO3 27.4 mEQ/L (21-27); ABG Oxygen Saturation 93 % (95-98); ABG PCO2 61 mmHg (35-45); ABG PH 7.26 pH Units (7.32-7.45); ABG PO2 78 mmHg (85-104); ABG TCO2 29.3 mEq/L (20-26)
[2017-01-20 23:03] LABS: Blood Gas FiO2 24 %; Blood Gas Liter Flow 1 L/MIN
[2017-01-21] MEDS: Ipratropium/Albuterol Neb 3 ML IH SCH ×7 (00:15→23:24)
[2017-01-21] MEDS: Budesonide/Formoterol 160/4.5 MDI IH SCH ×3 (00:16→20:27)
[2017-01-21] MEDS ORDERED: 0.9 % Sodium Chloride 1,000 ML IVC SCH (00:30)
[2017-01-21] MEDS: Pantoprazole 40 MG in 0.9 % Sodium Chloride Mini Bag 100 ML IVC SCH ×3 (01:16→11:17)
[2017-01-21 01:20] LABS: Basophils % 0.3 %; Eosinophils # 0.2 K/mcL (0.0-0.6); Eosinophils % 2.9 %; Hematocrit 34.9 % (37.5-50.1); Hemoglobin 10.8 g/dL (12.9-16.9); Immature Granulocytes % 0.3 % (0-4); Lymphocytes # 0.8 K/mcL (0.6-4.6); Lymphocytes % 12.2 %; Mean Corpuscular HGB Conc 30.9 g/dL (31.6-35.5); Mean Corpuscular Hemoglobin 29.8 pg (28.0-33.3); Mean Corpuscular Volume 96.1 fL (83.0-100.0); Mean Platelet Volume 9.7 fL (9.4-12.4); Monocytes # 0.5 K/mcL (0.0-1.3); Monocytes % 7.9 %; Platelet Count 194 K/mcL (140-400); Red Blood Count 3.63 M/mcL (4.19-5.50); Segmented Neutrophils % 76.4 %
[2017-01-21 01:37] LABS: Potassium 2.8 mEq/L (3.5-4.5)
[2017-01-21 01:55] LABS: Thyroid Stimulating Hormone 3.038 mcIU/mL (0.350-4.840)
[2017-01-21] MEDS: Piperacillin/Tazobactam 3.375 GM in D5% in Water (Mini-Bag+) 100 ML IVPB SCH ×3 (04:23→20:44)
[2017-01-21] MEDS ORDERED: *HR* Heparin 5,000 UNIT/ML VIAL SQ SCH (06:00)
[2017-01-21] MEDS: Vitamin B Complex/Vit C/Vit E 1 EACH TABLET PO SCH (08:48)
[2017-01-21] MEDS: Thiamine (B-1) 100 MG TABLET PO SCH (08:48)
[2017-01-21] MEDS ORDERED: Metoprolol XL (24 HR) Succ 50 MG TAB.ER.24H PO SCH (09:00)
[2017-01-21 14:00] LABS: Bilirubin,Urine Negative (Negative); Blood,Urine Negative (Negative); Clarity,Urine Clear (Clear); Color,Urine Yellow (Yellow); Glucose,Urine (UA) Normal (Normal); Ketones,Urine Negative (Negative); Leukocyte Esterase,Urine Negative (Negative); Nitrite,Urine Negative (Negative); Protein,Urine Trace mg/dL (Neg-Trace); Specific Gravity,Urine 1.016 (1.010-1.025); Urobilinogen,Urine Normal (Normal)
[2017-01-21 14:02] LABS: Bacteria,Urine None Seen per hpf (None-Few); Hyaline Casts,Urine None Seen per lpf (None-Few); Squamous Epithelial Cell,Urine Many per lpf (None-Few)
--- NOTE | 2017-01-21 15:11 | EEG/EMG/Oth Biometrics Report ---
EEG Procedure Report Date of procedure: 01/21/17 EEG Procedure: Routine EEG Procedure Note: This is a report of a 21 channel bipolar and referential montage EEG. The posterior dominant rhythm consists of very low voltage mixed alpha and beta frequencies. This rhythm is not reactive to eye opening. Hyperventilation was not performed during the recording. Beta frequencies are identified bifrontally throughout the recording. There is no sleep architecture identified during the study. Photic stimulation was performed and does not produce a driving response. The EKG rhythm strip reveals normal sinus rhythm at 66 beats per minute. Impressions: This EEG recording is abnormal and is consistent with a mild to moderate generalized encephalopathy. There is no evidence of epileptiform activity identified during the study. Comment: Etiologies of the above aforementioned interpretation might include toxic, metabolic, postictal, or degenerative. There were frequencies are indeed recognized as a normal variant however may also be reflective of a host of metabolic conditions anxiety and medication effect. Please correlate clinically.
[2017-01-21 15:26] LABS: ABG Base Excess 1.7 mEq/L (-2.0 to 3.0); ABG HCO3 28.5 mEQ/L (21-27); ABG Oxygen Saturation 97 % (95-98); ABG PCO2 54 mmHg (35-45); ABG PH 7.33 pH Units (7.32-7.45); ABG PO2 92 mmHg (85-104); ABG TCO2 30.2 mEq/L (20-26)
[2017-01-21 15:30] LABS: Blood Gas FiO2 30 %
--- NOTE | 2017-01-21 16:48 | Neurology - Consult Note ---
Date of Encounter: 01/21/17 Time of Encounter: 16:43 Assessment and Plan (1) Hypercapnia Current Visit: Yes Status: Acute I agree that the transient mental status changes were likely due to the hypercapnia. At this point he is improving closer to his normal baseline. He remains a bit somnolent. However his EEG revealed no evidence of seizure activity, the CT scan revealed no evidence of an acute process. I see no evidence to suspect a central nervous system infectious or inflammatory process. He is currently following commands and answering questions appropriately. I find no signs of delirium tremens at this time. No further testing from a neurologic perspective is necessary at this point. I will reevaluate him at your request. History of Present Illness HPI: Mr. Dumas is a 61 year old male with a known history of COPD and alcohol abuse who is seen for neurologic evaluation secondary to mental status changes and confusion. He just been recently discharged from the hospital secondary to signs and symptoms of alcohol withdrawal. He been discharged back to the [facility] when his thought that his mental status was not back to baseline. He is admitted to [facility] several tests were obtained. A CT scan of the head revealed no evidence of acute infarct however there are deep white matter chronic ischemic changes present as well as global atrophy. EEG was interpreted by myself with revealed mild to moderate generalized encephalopathy. There is no evidence of epileptiform activity identified. CBC with differential was essentially normal. CO2 was elevated at 61 upon admission. Electrolyte panel was essentially unremarkable. BUN/creatinine were elevated at 37 and 1.66 respectively. Glucose was 100. Over the course of the day his delirium has improved, he is less encephalopathic. He recognizes me, follows commands and answers questions appropriately. Follows commands appropriately. Denies headache, denies nuchal rigidity. Past Med Surg Social Fam HX - Past Medical History Medical history: COPD, hypertension, other Psychiatric history: no psych history - Past Surgical History Surgical History: herniorrhaphy (Abdominal hernia repair) - Social History Smoking Status: Never smoker Smokeless Tobacco Status: No Alcohol use: unknown Drug use: none - Family History Mother Living Status: Hx Family Cardiac Disorders: Yes Hx Family Respiratory Disorders: No Hx Family Cancer: No Hx Family GI Disorders: No Hx Family Endocrine Disorder: No Hx Family Neuromuscular Disorders: No Hx Family Neurologic Disorders: No Hx Family HEENT Disorders: No Hx Family Autoimmune Disorders: No Father Living Status: Hx Family Cardiac Disorders: No Hx Family Respiratory Disorders: No Hx Family Cancer: No Hx Family GI Disorders: No Hx Family Endocrine Disorder: No Hx Family Neuromuscular Disorders: No (ALS) Hx Family Neurologic Disorders: No Hx Family HEENT Disorders: No Hx Family Autoimmune Disorders: No Medications and Allergies Atorvastatin [Lipitor] 40 mg PO HS 07/29/15 [History] Sertraline [Zoloft] 150 mg PO QAM 07/29/15 [History] Albuterol Sulfate [Albuterol Inhaler] 2 puff IH Q4HR PRN 10/25/15 [History] Fluticasone Propionate Nasal [Flonase] 2 spray NS DAILY 7 Days 11/10/15 [Rx] Budesonide/Formoterol 160/4.5 [Symbicort 160/4.5] 2 puff IH BIDR 01/10/17 [ History] Omeprazole [PriLOSEC] 40 mg PO DAILY 01/10/17 [History] Oxygen 1 each .ROUTE AD 01/10/17 [History] Folic Acid 1 mg PO DAILY tab 01/18/17 [Rx] Furosemide [Lasix] 40 mg PO BIDDIURETIC tab 01/18/17 [Rx] Gabapentin [Neurontin] 800 mg PO TID #30 01/18/17 [Rx] HYDROcodone/Acet 7.5/325 mg [[place] 7.5-325 mg] 1 tab PO Q8H PRN #15 01/18/17 [ Rx] Ipratropium/Albuterol Neb [Duoneb] 3 ml IH [id number] inh 01/18/17 [Rx] Metoprolol XL (24 HR) Succ [Toprol Xl] 50 mg PO DAILY 01/18/17 [Rx] Thiamine (B-1) [Vitamin B-1] 100 mg PO DAILY tab 01/18/17 [Rx] Triamterene/HCTZ 37.5/25mg [Dyazide] 1 tab PO DAILY #0 01/18/17 [Rx] Vitamin B Complex/Vit C/Vit E [Stresstab] 1 each PO DAILY tab 01/18/17 [Rx] levoFLOXacin [Levaquin] 750 mg PO DAILY #2 tablet 01/18/17 [Rx] Nitroglycerin [Nitrostat] 0.4 mg SL Q5M PRN 01/20/17 [History] Allergies azithromycin [From Zithromax] Allergy (Verified 01/10/17 13:39) Rash All Systems: A 10-system review of systems was performed and is negative for pertinent findings except as documented above in the HPI. Review of Systems: Review of systems is consistent with a history of present illness and is otherwise negative. Physical Examination - Vital Signs Vital Signs: Initial Vital Signs Temp Pulse Resp BP Pulse Ox 98.4 F 74 18 109/67 96 01/20/17 17:37 01/20/17 17:37 01/20/17 17:37 01/20/17 17:37 01/20/17 17:37 - Exam Exam: Neurologic examination finds the following; Mental status finds that he is awake but groggy however is arousable and oriented to person place and time. He follows commands and answers questions appropriately. No agnosia and aphasia or apraxia are present. Cranial nerves II through XII are all intact. Motor exam finds normal strength of the upper extremities bilaterally, he does have diminished strength in the lower extremities distally to some extent. He is able to raise the legs off the bed against gravity. I believe that he is somewhat weak due to deconditioning. Sensory exam finds light touch and deep touch are generally intact. He denies paresthesias. He does a distal gradient to pinprick. Deep tendon reflexes are diminished throughout. Results - Laboratory Findings CBC and BMP: 01/21/17 00:41 01/21/17 07:43 Abnormal lab findings: Abnormal lab results RBC 3.63 M/mcL (4.19-5.50) L 01/21/17 00:41 Hgb 10.8 g/dL (12.9-16.9) L 01/21/17 00:41 Hct 34.9 % (37.5-50.1) L 01/21/17 00:41 MCHC 30.9 g/dL (31.6-35.5) L 01/21/17 00:41 Nucleated RBCs/100 WBC 0.3 /100 WBC (0) H 01/20/17 18:12 PT 16.2 Seconds (9.4-12.1) H 01/20/17 18:12 ABG pCO2 54 mmHg (35-45) H 01/21/17 15:17 ABG HCO3 28.5 mEQ/L (21-27) H 01/21/17 15:17 ABG Total CO2 30.2 mEq/L (20-26) H 01/21/17 15:17 Potassium 2.6 mEq/L (3.5-4.5) L 01/21/17 07:43 BUN 36 mg/dL (8-26) H 01/21/17 00:41 Creatinine 1.59 mg/dL (0.72-1.25) H 01/21/17 00:41 Est GFR ( Amer) 54 (> 60) L 01/21/17 00:41 Est GFR (Non-Af Amer) 44 (> 60) L 01/21/17 00:41 Glucose 101 mg/dL (70-99) H 01/21/17 00:41 POC Glucose 103 (58-89) H 01/21/17 07:33 Albumin 2.7 g/dL (3.5-5.0) L 01/20/17 18:12 Globulin 4.8 g/dL (2.4-3.5) H 01/20/17 18:12 Albumin/Globulin Ratio 0.6 (1.1-2.2) L 01/20/17 18:12 Urine Microscopic RBC 3-5 per hpf (0-3) H 01/21/17 13:25 Urine Microscopic WBC 3-5 per hpf (0-3) H 01/21/17 13:25 Ur Squamous Epith Cells Many per lpf (None-Few) H 01/21/17 13:25 Stool Occult Blood Positive (Negative) A 01/20/17 18:34 Consult Discharge Plan - Plan Referrals: NONE,PCP [Primary Care Provider] -
--- NOTE | 2017-01-21 16:58 | Internal Med Progress Note ---
Date of Encounter: 01/21/17 Time of Encounter: 16:56 - Assessment and plan (1) Acute respiratory failure with hypoxia and hypercapnia Current Visit: Yes Status: Acute Assessment and plan: Reviewed ABG from this afternoon slightly improved. still has resp acidosis. cont BiPAP at 18/8 f/u ABG in AM Cont duoneb and O2 (2) Pneumonia Current Visit: No Status: Suspected Assessment and plan: mostly aspirational PNA Will cont broad spec abx Zosyn for now will f/u on blood cx and sputum cx Qualifiers: Pneumonia type: aspiration pneumonia Aspiration pneumonia type: unspecified Laterality: bilateral Lung location: unspecified part of lung Qualified Code(s): J69.0 - Pneumonitis due to inhalation of food and vomit (3) Altered mental status Current Visit: No Status: Acute Assessment and plan: Reviewed EEG - Mild encephalopathy His AMS - due to metabolic encephalopathy with hypercapnia, dehydration and NICKI Improved mentation Cont close monitoring Qualifiers: Altered mental status type: delirium Qualified Code(s): R41.0 - Disorientation, unspecified (4) Hypokalemia Current Visit: No Status: Acute Assessment and plan: due to diuretics pt was on at home HCTZ / Triamterene Held diuretics cont replacing K + (5) COPD (chronic obstructive pulmonary disease) Current Visit: No Status: Acute Assessment and plan: Does have exacerbation started him on high dose IV steroids cont duoneb Qualifiers: COPD type: COPD with acute exacerbation Qualified Code(s): J44.1 - Chronic obstructive pulmonary disease with (acute) exacerbation (6) Acute and chronic respiratory failure with hypoxia Current Visit: No Status: Acute Assessment and plan: cont duoneb and o2 (7) Ileus Current Visit: Yes Status: Acute (8) NICKI (acute kidney injury) Current Visit: Yes Status: Acute Assessment and plan: due to dehydration / medication ( HCTZ / Triamterene induced ) held diuretics due to CHF -gentle hydration only (9) GI bleed Current Visit: Yes Status: Acute Assessment and plan: occult bleed +ve No signs of active bleeding will cont close f/u on Hb switch to PO PPI Qualifiers: GI bleed type/associated pathology: unspecified gastrointestinal hemorrhage type Qualified Code(s): K92.2 - Gastrointestinal hemorrhage, unspecified (10) History of alcohol abuse Current Visit: Yes Status: Chronic (11) Diastolic CHF, chronic Current Visit: Yes Status: Chronic Assessment and plan: not in exacerbation resumed home meds (12) Obstructive sleep apnea Current Visit: No Status: Chronic Assessment and plan: on BiPAP (13) DVT prophylaxis Current Visit: No Status: Acute Assessment and plan: on SCD's - Subjective Interval history: Mr. Dumas is a 61 year old male with PMH of alcohol abuse, COPD on 3L home oxygen and HTN. Patient was recently hospitalized (01/10 - 01/18) for delirium tremens, hyponatremia and pneumonia, which was treated with Levaquin. Patient was sent from [facility] for abdominal distension, lethargy and delirium. Pt seems was admitted with acute hypoxic and hypercapneic respiratory failure. Pt just came off the BiPAP, now he is more alert, awake and O x3. Denied any CP. Does c/o Severe SOB and REYES. Denied any cough / expectoration - Constitutional Vitals: Temp Pulse Resp BP Pulse Ox 97.6 F 70 16 114/61 96 01/21/17 16:16 01/21/17 16:16 01/21/17 16:41 01/21/17 16:16 01/21/17 16:41 General appearance: Present: cooperative, mild distress, A&O X 3, answers questions appropriately - Head Head exam: Present: atraumatic, normal inspection - Neck Neck exam general surgery: Present: supple. Absent: lymphadenopathy, thyromegaly - Respiratory Respiratory exam: Present: decreased breath sounds, respiratory distress, wheezes (diffuse), tachypnea. Absent: rales - Cardiovascular Cardiovascular exam: Present: RRR, +S1, +S2. Absent: systolic murmur - GI/Abdominal GI/Abdominal exam: Present: distended, normal bowel sounds, soft. Absent: rebound, rigid, tenderness - Extremities Exam Extremities exam: Present: pedal edema. Absent: calf tenderness, tenderness - Neurological Exam Neurological exam: Present: alert, oriented X3 - Psychiatric Psychiatric exam: Present: normal affect, normal mood Internal Medicine: Result - Labs CBC & Chem 7: 01/21/17 00:41 01/21/17 07:43 Labs: Short CBC 01/21/17 Range/Units 00:41 WBC 6.6 (4.3-11.1) K/mcL Hgb 10.8 L (12.9-16.9) g/dL Hct 34.9 L (37.5-50.1) % Plt Count 194 (140-400) K/mcL Neutrophils # 5.0 (1.6-8.9) K/mcL BMP 01/21/17 01/21/17 00:41 07:43 Sodium 139 Potassium 2.8 L 2.6 L Chloride 104 Carbon Dioxide 29 BUN 36 H Creatinine 1.59 H Glucose 101 H Calcium 9.0 Urine 01/21/17 Range/Units 13:25 Urine Color Yellow (Yellow) Urine Clarity Clear (Clear) Urine pH 6.0 (5.0-8.0) pH Units Ur Specific [place] 1.016 (1.010-1.025) Urine Protein Trace (Neg-Trace) mg/dL Urine Glucose (UA) Normal (Normal) mg/dL - ABG Interpretation Interpretation: ABG interpreted by wi ABG results: ABG ABG pH 7.33 pH Units (7.32-7.45) 01/21/17 15:17 ABG pCO2 54 mmHg (35-45) H 01/21/17 15:17 ABG pO2 92 mmHg (85-104) 01/21/17 15:17 ABG O2 Saturation 97 % (95-98) 01/21/17 15:17 PT/INR, D-dimer PT 16.2 Seconds (9.4-12.1) H 01/20/17 18:12 Interpretation: respiratory acidosis - Impressions Impressions Head CT 01/21/17 08:00 IMPRESSION: 1. No acute intracranial abnormality. 2. Global parenchymal volume loss with chronic microvascular ischemic change. 3. Scattered atherosclerosis. D/ / Loco Stanley MD / Loco Stanley MD Interpreting Provider: Loco Stanley MD Consult Discharge Plan - Plan Referrals: NONE,PCP [Primary Care Provider] -
[2017-01-21] MEDS: methylPREDNISolone 125 MG/2 ML VIAL IVP SCH (17:16)
[2017-01-21] MEDS: Fluticasone Propionate Nasal 50 MCG/SPRAY BOTTLE NS SCH (17:30)
[2017-01-21] MEDS ORDERED: Pantoprazole 40 MG VIAL IVP SCH (18:00)
[2017-01-21] MEDS: Gabapentin 400 MG CAPSULE PO SCH (20:44)
[2017-01-21] MEDS: *HR* HYDROcodone/Acet 7.5/325 mg TABLET PO PRN (20:45)
[2017-01-22] MEDS: methylPREDNISolone 125 MG/2 ML VIAL IVP SCH ×4 (01:10→16:51)
[2017-01-22] MEDS: Piperacillin/Tazobactam 3.375 GM in D5% in Water (Mini-Bag+) 100 ML IVPB SCH ×3 (03:31→20:04)
[2017-01-22] MEDS: Ipratropium/Albuterol Neb 3 ML IH SCH ×3 (04:30→10:24)
[2017-01-22] MEDS: *HR* HYDROcodone/Acet 7.5/325 mg TABLET PO PRN (06:09)
[2017-01-22 06:26] LABS: Hematocrit 39.3 % (37.5-50.1); Hemoglobin 12.2 g/dL (12.9-16.9); Immature Granulocytes % 0.2 % (0-4); Lymphocytes # 0.3 K/mcL (0.6-4.6); Lymphocytes % 5.2 %; Mean Corpuscular Hemoglobin 29.6 pg (28.0-33.3); Mean Corpuscular Volume 95.4 fL (83.0-100.0); Monocytes # 0.1 K/mcL (0.0-1.3); Monocytes % 0.9 %; Neutrophils # 5.4 K/mcL (1.6-8.9); Platelet Count 195 K/mcL (140-400); Red Blood Count 4.12 M/mcL (4.19-5.50); Segmented Neutrophils % 93.7 %
[2017-01-22 06:38] LABS: BUN/Creatinine Ratio 21 (6-26); Blood Urea Nitrogen 27 mg/dL (8-26); Calcium 9.4 mg/dL (8.6-10.8); Carbon Dioxide 23 mEq/L (19-29); Chloride 108 mEq/L (98-109); Glucose 140 mg/dL (70-99); Magnesium 2.2 mg/dL (1.6-2.6); Osmolality,Calculated 301 (280-300); Sodium 142 mEq/L (136-145); eGFR For African Americans > 60 (> 60); eGFR For Non-African Americans 56 (> 60)
--- NOTE | 2017-01-22 07:45 | Electrocardiograph Report ---
[place] [id number] Test Date: 2017-01-20 Pat Name: Juancarlos Dumas Department: 104 Room: 2N13 Gender: M Inspector Fibrous Wallboard: : 1955 Requested By: Dhaval Starks Order Number: [id number] Reading MD: Kei Cuadra MD Measurements Intervals [place] Rate: 75 P: 34 W[place]: 130 QRS: 10 QRSD: 122 T: 51 QT: 399 QTc: 427 Interpretive Statements SINUS RHYTHM Electronically Signed On 01-21-2017 17:43:48 EDT by Kei Cuadra MD
[2017-01-22] MEDS: Folic Acid 1 MG TABLET PO SCH (08:57)
[2017-01-22] MEDS: Thiamine (B-1) 100 MG TABLET PO SCH (08:57)
[2017-01-22] MEDS: Vitamin B Complex/Vit C/Vit E 1 EACH TABLET PO SCH (08:57)
[2017-01-22] MEDS: Fluticasone Propionate Nasal 50 MCG/SPRAY BOTTLE NS SCH (08:58)
[2017-01-22] MEDS: Gabapentin 400 MG CAPSULE PO SCH ×3 (08:58→20:02)
[2017-01-22] MEDS: Budesonide/Formoterol 160/4.5 MDI IH SCH ×2 (10:24→20:08)
--- NOTE | 2017-01-22 15:14 | Internal Med Progress Note ---
Date of Encounter: 01/22/17 Time of Encounter: 15:11 - Assessment and plan (1) Acute respiratory failure with hypoxia and hypercapnia Current Visit: Yes Status: Acute Assessment and plan: Improved Pt is more alert, awake and O x 3 now Will cont BiPAP at 16/8 as needed during day time and continuous at HS Cont duoneb and O2 (2) Pneumonia Current Visit: No Status: Suspected Assessment and plan: mostly aspirational PNA Will cont broad spec abx Zosyn for now So far blood cx - no growth Sputum cx - P Qualifiers: Pneumonia type: aspiration pneumonia Aspiration pneumonia type: unspecified Laterality: bilateral Lung location: unspecified part of lung Qualified Code(s): J69.0 - Pneumonitis due to inhalation of food and vomit (3) Altered mental status Current Visit: No Status: Resolved Assessment and plan: Resolved Reviewed EEG - Mild encephalopathy His AMS - due to metabolic encephalopathy with hypercapnia, dehydration and NICKI Improved mentation Cont close monitoring Qualifiers: Altered mental status type: delirium Qualified Code(s): R41.0 - Disorientation, unspecified (4) Hypokalemia Current Visit: No Status: Acute Assessment and plan: due to diuretics pt was on Lasix, HCTZ / Triamterene at SNF cont replacing K + (5) COPD (chronic obstructive pulmonary disease) Current Visit: No Status: Acute Assessment and plan: Does have exacerbation Little better today start tapering IV steroids cont duoneb Qualifiers: COPD type: COPD with acute exacerbation Qualified Code(s): J44.1 - Chronic obstructive pulmonary disease with (acute) exacerbation (6) Acute and chronic respiratory failure with hypoxia Current Visit: No Status: Acute Assessment and plan: cont duoneb and o2 (7) Ileus Current Visit: Yes Status: Acute (8) NICKI (acute kidney injury) Current Visit: Yes Status: Acute Assessment and plan: due to dehydration / medication ( Lasix and HCTZ / Triamterene induced ) Improving Resumed Lasix only now (9) GI bleed Current Visit: Yes Status: Acute Assessment and plan: occult blood +ve No signs of active bleeding Hb improved to 12.2 Cont PPI Qualifiers: GI bleed type/associated pathology: unspecified gastrointestinal hemorrhage type Qualified Code(s): K92.2 - Gastrointestinal hemorrhage, unspecified (10) History of alcohol abuse Current Visit: Yes Status: Chronic (11) Diastolic CHF, chronic Current Visit: Yes Status: Chronic Assessment and plan: not in exacerbation resumed home meds (12) Obstructive sleep apnea Current Visit: No Status: Chronic Assessment and plan: on BiPAP (13) DVT prophylaxis Current Visit: No Status: Acute Assessment and plan: on SCD's - Subjective Interval history: Mr. Dumas is a 61 year old male with PMH of alcohol abuse, COPD on 3L home oxygen and HTN. Patient was recently hospitalized (01/10 - 01/18) for delirium tremens, hyponatremia and pneumonia, which was treated with Levaquin. Patient was sent from [facility] for abdominal distension, lethargy and delirium. Pt seems was admitted with acute hypoxic and hypercapneic respiratory failure. Pt just came off the BiPAP, now he is more alert, awake and O x3. Denied any CP. Does c/o Severe SOB and REYES. Denied any cough / expectoration - Constitutional Vitals: Temp Pulse Resp BP Pulse Ox 97.9 F 74 20 156/87 100 01/22/17 12:12 01/22/17 12:12 01/22/17 12:12 01/22/17 12:12 01/22/17 10:25 General appearance: Present: cooperative, mild distress, A&O X 3, answers questions appropriately - Head Head exam: Present: atraumatic, normal inspection - Respiratory Respiratory exam: Present: decreased breath sounds, respiratory distress (mild) , wheezes (moderate to severe). Absent: rhonchi - Cardiovascular Cardiovascular exam: Present: RRR, +S1, +S2. Absent: systolic murmur - GI/Abdominal GI/Abdominal exam: Present: distended, normal bowel sounds, soft. Absent: rebound, rigid, tenderness - Extremities Exam Extremities exam: Present: pedal edema (2-3 + pitting edema) - Neurological Exam Neurological exam: Present: alert, oriented X3 - Psychiatric Psychiatric exam: Present: normal affect, normal mood Internal Medicine: Result - Labs CBC & Chem 7: 01/22/17 05:02 01/22/17 05:02 Labs: Short CBC 01/22/17 Range/Units 05:02 WBC 5.8 (4.3-11.1) K/mcL Hgb 12.2 L (12.9-16.9) g/dL Hct 39.3 (37.5-50.1) % Plt Count 195 (140-400) K/mcL Neutrophils # 5.4 (1.6-8.9) K/mcL BMP 01/22/17 05:02 Sodium 142 Potassium 3.0 L Chloride 108 Carbon Dioxide 23 BUN 27 H Creatinine 1.30 H Glucose 140 H Calcium 9.4 - ABG Interpretation ABG results: ABG ABG pH 7.33 pH Units (7.32-7.45) 01/21/17 15:17 ABG pCO2 54 mmHg (35-45) H 01/21/17 15:17 ABG pO2 92 mmHg (85-104) 01/21/17 15:17 ABG O2 Saturation 97 % (95-98) 01/21/17 15:17 PT/INR, D-dimer PT 16.2 Seconds (9.4-12.1) H 01/20/17 18:12 Consult Discharge Plan - Plan Referrals: NONE,PCP [Primary Care Provider] -
[2017-01-22] MEDS: Furosemide 40 MG TABLET PO SCH (16:50)
[2017-01-23] MEDS: methylPREDNISolone 125 MG/2 ML VIAL IVP SCH ×5 (01:31→23:38)
[2017-01-23] MEDS: Piperacillin/Tazobactam 3.375 GM in D5% in Water (Mini-Bag+) 100 ML IVPB SCH ×3 (05:44→21:46)
[2017-01-23] MEDS: Ipratropium/Albuterol Neb 3 ML IH PRN ×4 (07:33→19:42)
[2017-01-23] MEDS: Budesonide/Formoterol 160/4.5 MDI IH SCH ×2 (07:51→19:42)
[2017-01-23] MEDS: Furosemide 40 MG TABLET PO SCH ×2 (10:36→17:34)
[2017-01-23] MEDS: Gabapentin 400 MG CAPSULE PO SCH ×3 (10:36→21:46)
[2017-01-23] MEDS: Thiamine (B-1) 100 MG TABLET PO SCH (10:36)
[2017-01-23] MEDS: Folic Acid 1 MG TABLET PO SCH (10:36)
[2017-01-23] MEDS: Vitamin B Complex/Vit C/Vit E 1 EACH TABLET PO SCH (10:36)
[2017-01-23] MEDS: Fluticasone Propionate Nasal 50 MCG/SPRAY BOTTLE NS SCH (10:37)
--- NOTE | 2017-01-23 12:10 | Internal Med Progress Note ---
Date of Encounter: 01/23/17 Time of Encounter: 12:08 - Assessment and plan (1) Acute respiratory failure with hypoxia and hypercapnia Current Visit: Yes Status: Acute Assessment and plan: Improved Pt is more alert, awake and O x 3 now Will cont BiPAP at 16/8 at HS Cont duoneb and O2 (2) Pneumonia Current Visit: No Status: Suspected Assessment and plan: mostly aspirational PNA Cont Zosyn for now So far blood cx - no growth Sputum cx - P Qualifiers: Pneumonia type: aspiration pneumonia Aspiration pneumonia type: unspecified Laterality: bilateral Lung location: unspecified part of lung Qualified Code(s): J69.0 - Pneumonitis due to inhalation of food and vomit (3) Altered mental status Current Visit: No Status: Resolved Assessment and plan: Resolved Reviewed EEG - Mild encephalopathy His AMS - due to metabolic encephalopathy with hypercapnia, dehydration and NICKI Improved mentation Cont close monitoring Qualifiers: Altered mental status type: delirium Qualified Code(s): R41.0 - Disorientation, unspecified (4) Hypokalemia Current Visit: No Status: Acute (5) COPD (chronic obstructive pulmonary disease) Current Visit: No Status: Acute Assessment and plan: Does have exacerbation Little better today Cont tapering IV steroids cont duoneb Qualifiers: COPD type: COPD with acute exacerbation Qualified Code(s): J44.1 - Chronic obstructive pulmonary disease with (acute) exacerbation (6) Acute and chronic respiratory failure with hypoxia Current Visit: No Status: Acute Assessment and plan: cont duoneb and o2 (7) Ileus Current Visit: Yes Status: Resolved Assessment and plan: resolved has regular BM's (8) NICKI (acute kidney injury) Current Visit: Yes Status: Acute Assessment and plan: due to dehydration / medication ( Lasix and HCTZ / Triamterene induced ) Improving Resumed Lasix only now (9) GI bleed Current Visit: Yes Status: Acute Assessment and plan: occult blood +ve No signs of active bleeding Hb improved to 12.2 Cont PPI out pt f/u with GI Qualifiers: GI bleed type/associated pathology: unspecified gastrointestinal hemorrhage type Qualified Code(s): K92.2 - Gastrointestinal hemorrhage, unspecified (10) History of alcohol abuse Current Visit: Yes Status: Chronic (11) Ascites Current Visit: Yes Status: Acute Assessment and plan: Consulted IR for U?S guided paracentesis Qualifiers: Ascites type: due to alcoholic cirrhosis Qualified Code(s): K70.31 - Alcoholic cirrhosis of liver with ascites (12) Diastolic CHF, chronic Current Visit: Yes Status: Chronic Assessment and plan: not in exacerbation resumed home meds resumed Lasix too (13) Obstructive sleep apnea Current Visit: No Status: Chronic Assessment and plan: on BiPAP will d/c him back to SNF on Wednesday Need to switch to BiPAP from CPAP (14) DVT prophylaxis Current Visit: No Status: Acute Assessment and plan: on SCD's - Subjective Interval history: Mr. Dumas is a 61 year old male with PMH of alcohol abuse, COPD on 3L home oxygen and HTN. Patient was recently hospitalized (01/10 - 01/18) for delirium tremens, hyponatremia and pneumonia, which was treated with Levaquin. Patient was sent from [facility] for abdominal distension, lethargy and delirium. Pt seems was admitted with acute hypoxic and hypercapneic respiratory failure. He is more alert, awake and O x3. Denied any CP. Does c/o Severe SOB and REYES. Denied any cough / expectoration. - Constitutional Vitals: Temp Pulse Resp BP Pulse Ox 97.9 F 68 16 159/89 100 01/23/17 04:35 01/23/17 06:49 01/23/17 07:33 01/23/17 07:33 01/23/17 07:33 General appearance: Present: cooperative, mild distress, A&O X 3, answers questions appropriately - Head Head exam: Present: atraumatic, normal inspection - Respiratory Respiratory exam: Present: decreased breath sounds, rales (mild), wheezes. Absent: rhonchi - Cardiovascular Cardiovascular exam: Present: RRR, +S1, +S2. Absent: systolic murmur - GI/Abdominal GI/Abdominal exam: Present: distended (Fluid thrill +), normal bowel sounds, soft. Absent: firm, guarding, rebound, rigid, tenderness - Extremities Exam Extremities exam: Present: pedal edema (chronic 2-3 + edema). Absent: calf tenderness - Psychiatric Psychiatric exam: Present: normal affect, normal mood Internal Medicine: Result - Labs CBC & Chem 7: 01/22/17 05:02 01/22/17 05:02 - ABG Interpretation ABG results: ABG ABG pH 7.33 pH Units (7.32-7.45) 01/21/17 15:17 ABG pCO2 54 mmHg (35-45) H 01/21/17 15:17 ABG pO2 92 mmHg (85-104) 01/21/17 15:17 ABG O2 Saturation 97 % (95-98) 01/21/17 15:17 PT/INR, D-dimer PT 16.2 Seconds (9.4-12.1) H 01/20/17 18:12 Consult Discharge Plan - Plan Referrals: NONE,PCP [Primary Care Provider] -
[2017-01-23 12:47] LABS: Basophils % 0.1 %; Hematocrit 36.9 % (37.5-50.1); Hemoglobin 11.6 g/dL (12.9-16.9); Immature Granulocytes % 0.5 % (0-4); Immature Platelets 2.9 % (1.1-6.1); Lymphocytes # 0.5 K/mcL (0.6-4.6); Lymphocytes % 5.5 %; Mean Corpuscular HGB Conc 31.4 g/dL (31.6-35.5); Mean Corpuscular Hemoglobin 29.4 pg (28.0-33.3); Mean Corpuscular Volume 93.4 fL (83.0-100.0); Mean Platelet Volume 9.7 fL (9.4-12.4); Monocytes # 0.4 K/mcL (0.0-1.3); Monocytes % 4.4 %; Neutrophils # 8.3 K/mcL (1.6-8.9); Platelet Count 252 K/mcL (140-400); Red Blood Count 3.95 M/mcL (4.19-5.50); Segmented Neutrophils % 89.5 %
[2017-01-23 12:59] LABS: BUN/Creatinine Ratio 26 (6-26); Blood Urea Nitrogen 30 mg/dL (8-26); Calcium 8.9 mg/dL (8.6-10.8); Carbon Dioxide 25 mEq/L (19-29); Chloride 112 mEq/L (98-109); Glucose 152 mg/dL (70-99); Magnesium 2.7 mg/dL (1.6-2.6); Osmolality,Calculated 309 (280-300); Potassium 3.2 mEq/L (3.5-4.5); Sodium 145 mEq/L (136-145); eGFR For African Americans > 60 (> 60); eGFR For Non-African Americans > 60 (> 60)
[2017-01-24] MEDS: Piperacillin/Tazobactam 3.375 GM in D5% in Water (Mini-Bag+) 100 ML IVPB SCH ×3 (05:15→22:58)
[2017-01-24] MEDS: methylPREDNISolone 125 MG/2 ML VIAL IVP SCH (05:16)
[2017-01-24 05:54] LABS: Hematocrit 37.6 % (37.5-50.1); Hemoglobin 11.7 g/dL (12.9-16.9); Immature Granulocytes % 0.6 % (0-4); Lymphocytes # 0.6 K/mcL (0.6-4.6); Lymphocytes % 5.9 %; Mean Corpuscular HGB Conc 31.1 g/dL (31.6-35.5); Mean Corpuscular Hemoglobin 29.3 pg (28.0-33.3); Mean Corpuscular Volume 94.2 fL (83.0-100.0); Monocytes # 0.5 K/mcL (0.0-1.3); Monocytes % 4.4 %; Neutrophils # 9.1 K/mcL (1.6-8.9); Platelet Count 227 K/mcL (140-400); Red Blood Count 3.99 M/mcL (4.19-5.50); Red Cell Distribution Width 14.4 % (11.5-14.5); Segmented Neutrophils % 89.1 %
[2017-01-24 05:57] LABS: INR 1.7; Prothrombin Time 18.6 Seconds (9.4-12.1)
[2017-01-24 06:10] LABS: BUN/Creatinine Ratio 30 (6-26); Blood Urea Nitrogen 34 mg/dL (8-26); Calcium 8.9 mg/dL (8.6-10.8); Carbon Dioxide 27 mEq/L (19-29); Chloride 106 mEq/L (98-109); Glucose 146 mg/dL (70-99); Magnesium 2.4 mg/dL (1.6-2.6); Osmolality,Calculated 302 (280-300); Potassium 3.3 mEq/L (3.5-4.5); Sodium 141 mEq/L (136-145); eGFR For African Americans > 60 (> 60); eGFR For Non-African Americans > 60 (> 60)
[2017-01-24] MEDS: Budesonide/Formoterol 160/4.5 MDI IH SCH ×2 (08:07→19:42)
--- NOTE | 2017-01-24 09:28 | Internal Med Progress Note ---
Date of Encounter: 01/24/17 Time of Encounter: 09:26 - Assessment and plan (1) Acute respiratory failure with hypoxia and hypercapnia Current Visit: Yes Status: Acute Assessment and plan: Improved Pt is more alert, awake and O x 3 now Will cont BiPAP at 16/8 at HS Cont duoneb and O2 (2) Pneumonia Current Visit: No Status: Suspected Assessment and plan: mostly aspirational PNA Cont Zosyn for now So far blood cx - no growth Sputum cx - P Qualifiers: Pneumonia type: aspiration pneumonia Aspiration pneumonia type: unspecified Laterality: bilateral Lung location: unspecified part of lung Qualified Code(s): J69.0 - Pneumonitis due to inhalation of food and vomit (3) Ileus Current Visit: Yes Status: Resolved Assessment and plan: Had Jelly like BM's last night will sent for C. Diff Since his abdomen is more distended - will get a stat Abdomen X ray cont close monitoring (4) Ascites Current Visit: Yes Status: Acute Assessment and plan: His abdomen looks more distended - could be due to his ascities however since his recent CT showed ileus, will repeat obstruction series now will start him on IV lasix Consulted IR for U/S guided paracentesis in AM [place] cath strict I & O Qualifiers: Ascites type: due to alcoholic cirrhosis Qualified Code(s): K70.31 - Alcoholic cirrhosis of liver with ascites (5) Altered mental status Current Visit: No Status: Resolved Assessment and plan: Resolved Reviewed EEG - Mild encephalopathy His AMS - due to metabolic encephalopathy with hypercapnia, dehydration and NICKI Improved mentation Cont close monitoring Qualifiers: Altered mental status type: delirium Qualified Code(s): R41.0 - Disorientation, unspecified (6) COPD (chronic obstructive pulmonary disease) Current Visit: No Status: Acute Assessment and plan: Does have exacerbation Little better today Cont tapering IV steroids cont duoneb Qualifiers: COPD type: COPD with acute exacerbation Qualified Code(s): J44.1 - Chronic obstructive pulmonary disease with (acute) exacerbation (7) Acute and chronic respiratory failure with hypoxia Current Visit: No Status: Acute Assessment and plan: cont duoneb and o2 (8) NICKI (acute kidney injury) Current Visit: Yes Status: Acute Assessment and plan: due to dehydration / medication ( Lasix and HCTZ / Triamterene induced ) Improving Resumed Lasix only now (9) GI bleed Current Visit: Yes Status: Acute Assessment and plan: occult blood +ve No signs of active bleeding Hb improved to 12.2 Cont PPI out pt f/u with GI Qualifiers: GI bleed type/associated pathology: unspecified gastrointestinal hemorrhage type Qualified Code(s): K92.2 - Gastrointestinal hemorrhage, unspecified (10) History of alcohol abuse Current Visit: Yes Status: Chronic (11) Diastolic CHF, chronic Current Visit: Yes Status: Chronic Assessment and plan: not in exacerbation resumed home meds resumed Lasix too (12) Obstructive sleep apnea Current Visit: No Status: Chronic Assessment and plan: on BiPAP will d/c him back to SNF on Wednesday Need to switch to BiPAP from CPAP (13) Hypokalemia Current Visit: No Status: Acute Assessment and plan: due to diuretics pt was on Lasix, HCTZ / Triamterene at SNF cont replacing K + (14) DVT prophylaxis Current Visit: No Status: Acute Assessment and plan: on SCD's - Subjective Interval history: Mr. Dumas is a 61 year old male with PMH of alcohol abuse, COPD on 3L home oxygen and HTN. Patient was recently hospitalized (01/10 - 01/18) for delirium tremens, hyponatremia and pneumonia, which was treated with Levaquin. Patient was sent from [facility] for abdominal distension, lethargy and delirium. Pt seems was admitted with acute hypoxic and hypercapneic respiratory failure. He is more alert, awake and O x3. Denied any CP. Does c/o Severe SOB and REYES. Denied any cough / expectoration. He did have 2 small jelly like water BMs last night. Pt stated he is passing gas ok, however his abdomen looks more distended today. - Constitutional Vitals: Temp Pulse Resp BP Pulse Ox 97.6 F 80 16 146/87 99 01/24/17 07:00 01/24/17 07:00 01/24/17 08:07 01/24/17 07:00 01/24/17 08:07 General appearance: Present: cooperative, mild distress, A&O X 3, answers questions appropriately - Head Head exam: Present: atraumatic, normal inspection - Neck Neck exam general surgery: Present: supple - Respiratory Respiratory exam: Present: decreased breath sounds, wheezes. Absent: rales, respiratory distress, rhonchi - Cardiovascular Cardiovascular exam: Present: RRR, +S1, +S2. Absent: systolic murmur - GI/Abdominal GI/Abdominal exam: Present: distended, normal bowel sounds, soft. Absent: rebound, rigid, tenderness Additional comments: severely distended..tympanic note +, fluid thrill +.. Non tender - Extremities Exam Extremities exam: Present: pedal edema (2-3 + - little better today). Absent: calf tenderness, tenderness Internal Medicine: Result - Labs CBC & Chem 7: 01/24/17 05:16 01/24/17 05:16 Labs: Short CBC 01/23/17 01/24/17 Range/Units 12:26 05:16 WBC 9.3 D 10.2 (4.3-11.1) K/mcL Hgb 11.6 L 11.7 L (12.9-16.9) g/dL Hct 36.9 L 37.6 (37.5-50.1) % Plt Count 252 227 (140-400) K/mcL Neutrophils # 8.3 9.1 H (1.6-8.9) K/mcL BMP 01/23/17 01/24/17 12:26 05:16 Sodium 145 141 Potassium 3.2 L 3.3 L Chloride 112 H 106 Carbon Dioxide 25 27 BUN 30 H 34 H Creatinine 1.17 1.14 Glucose 152 H 146 H Calcium 8.9 8.9 - ABG Interpretation ABG results: ABG ABG pH 7.33 pH Units (7.32-7.45) 01/21/17 15:17 ABG pCO2 54 mmHg (35-45) H 01/21/17 15:17 ABG pO2 92 mmHg (85-104) 01/21/17 15:17 ABG O2 Saturation 97 % (95-98) 01/21/17 15:17 PT/INR, D-dimer PT 18.6 Seconds (9.4-12.1) H 01/24/17 05:16 Consult Discharge Plan - Plan Referrals: NONE,PCP [Primary Care Provider] -
[2017-01-24] MEDS ORDERED: Furosemide 40 MG/4 ML VIAL IVP SCH (09:45)
[2017-01-24] MEDS: Gabapentin 400 MG CAPSULE PO SCH ×3 (10:50→23:00)
[2017-01-24] MEDS: Vitamin B Complex/Vit C/Vit E 1 EACH TABLET PO SCH (10:50)
[2017-01-24] MEDS: Thiamine (B-1) 100 MG TABLET PO SCH (10:50)
[2017-01-24] MEDS: Folic Acid 1 MG TABLET PO SCH (10:51)
[2017-01-24] MEDS: Fluticasone Propionate Nasal 50 MCG/SPRAY BOTTLE NS SCH (10:52)
--- NOTE | 2017-01-24 16:49 | Event Note ---
Date of Encounter: 01/24/17 Time of Encounter: 16:46 Reviewed his abdomen X ray - Markedly distended small and large bowel compatible with ileus. The cecum measures up to 11.8 cm.. I gave him one time soap enema, he just had another loose watery large BM. Spoke to GI Dr. Last, who is planning on seeing him later today Also spoke to Surgery Dr. Freeman, will see him later. held his lasix now cont close monitoring placed him on NPO No need of IVF at this point..If need to start him on IVF, will start gentle hydration only due to his underline CHF and Resp failure
[2017-01-24] MEDS ORDERED: Furosemide 40 MG TABLET PO SCH (17:00)
[2017-01-24] MEDS: MethylPREDNISolone 40 MG/ML VIAL IVP SCH (17:59)
[2017-01-24] MEDS: Ipratropium/Albuterol Neb 3 ML IH PRN ×2 (19:42→23:46)
--- NOTE | 2017-01-24 20:13 | Internal Med Progress Note ---
Date of Encounter: 01/24/17 Time of Encounter: 20:10 - Assessment and plan (1) Ileus Current Visit: Yes Status: Resolved Assessment and plan: This is most likely secondary volume depletion (elevated Osm), as well as Hypokalemia. Obst. is less likely. PPI Therapy can also cause bloating. Will need to exclude low Mag. and Phosh, and start vigourous Potassium replacement. Will also place rectal and NG tube. He is a DNR, and would be poor surgical candidate with excessive mortality.. If he does not respond in 24 hrs, could contemplate colonic decompression. (2) Hypokalemia Current Visit: No Status: Acute (3) Generalized weakness Current Visit: No Status: Acute (4) Morbid obesity with BMI of 50.0-59.9, adult Current Visit: No Status: Acute (5) Acute and chronic respiratory failure with hypoxia Current Visit: No Status: Chronic (6) History of alcohol abuse Current Visit: Yes Status: Chronic - Time Spent With Patient 25 - 35 minutes - Subjective Interval history: This is Dr. Last, providing GI coverage and Consult for Abd. Distention. This gentleman was admitted 6 days ago for lethargy and abd. distension. This has progressively worsened to wear the Cecum is measuring greater than 11 cms'. He has had no N/V, and complains of no abd. pain. He awakens easily, and is oriented. VSS are stable, there have been no temps. His Potassium has been low for most of the admission.. His I/O is most likely negative. Only surgery he reports is abd. herniorraphy with mesh. There has been no Endoscopy in the past 6 yrs at [place]. - Constitutional Vitals: Temp Pulse Resp BP Pulse Ox 98.3 F 107 16 131/92 99 01/24/17 15:25 01/24/17 15:25 01/24/17 16:31 01/24/17 15:25 01/24/17 16:31 General appearance: Present: cooperative, A&O X 1, morbidly obese, pleasant, no acute distress, answers questions appropriately - ENT ENT exam: Present: mucous membranes moist, normal exam - Neck Neck exam general surgery: Present: supple, trachea midline. Absent: tenderness - Respiratory Respiratory exam: Present: CTAB. Absent: wheezes, tachypnea - Cardiovascular Cardiovascular exam: Present: distant heart sounds, RRR. Absent: JVD - GI/Abdominal GI/Abdominal exam: Present: distended, firm, hypoactive bowel sounds, no peritoneal signs. Absent: guarding, tenderness - Rectal Rectal exam: Present: deferred Internal Medicine: Result - Labs CBC & Chem 7: 01/24/17 05:16 01/24/17 05:16 Labs: Short CBC 01/24/17 Range/Units 05:16 WBC 10.2 (4.3-11.1) K/mcL Hgb 11.7 L (12.9-16.9) g/dL Hct 37.6 (37.5-50.1) % Plt Count 227 (140-400) K/mcL Neutrophils # 9.1 H (1.6-8.9) K/mcL BMP 01/24/17 05:16 Sodium 141 Potassium 3.3 L Chloride 106 Carbon Dioxide 27 BUN 34 H Creatinine 1.14 Glucose 146 H Calcium 8.9 - ABG Interpretation ABG results: ABG ABG pH 7.33 pH Units (7.32-7.45) 01/21/17 15:17 ABG pCO2 54 mmHg (35-45) H 01/21/17 15:17 ABG pO2 92 mmHg (85-104) 01/21/17 15:17 ABG O2 Saturation 97 % (95-98) 01/21/17 15:17 PT/INR, D-dimer PT 18.6 Seconds (9.4-12.1) H 01/24/17 05:16 - Impressions Impressions Chest X-Ray 01/24/17 09:19 IMPRESSION: 1. No lines or tubes. 2. Improved aeration of the right base, otherwise, stable cardiopulmonary status since 01/18/2017 including left base opacity, bilateral effusions, vascular indistinctness, and ground-glass airspace opacities. D/ / 01/24/2017 12:55:28 Aimee Briones MD / [email or web address] Interpreting Provider: Aimee Briones MD Abdomen X-Ray 01/24/17 09:24 IMPRESSION: Continued small and large bowel distention with cecal measurement 11.8 cm. Findings may reflect ileus or distal obstruction. D/ / 01/24/2017 12:56:33 Juan Scott MD / [email or web address] Interpreting Provider: Juan Scott MD Consult Discharge Plan - Plan Referrals: NONE,PCP [Primary Care Provider] -
[2017-01-24] MEDS ORDERED: 0.9 % Sodium Chloride w KCl 40 MEQ/1,000 ML MLS IVC SCH (20:30)
[2017-01-24 21:43] LABS: Magnesium 2.1 mg/dL (1.6-2.6); Phosphorous 2.6 mg/dL (2.3-4.7)
[2017-01-25] MEDS: Ipratropium/Albuterol Neb 3 ML IH PRN ×5 (03:29→19:50)
[2017-01-25] MEDS ORDERED: *HR* Morphine 2 MG/ML SYRINGE ONE (03:37)
[2017-01-25] MEDS: *HR* Morphine 2 MG/ML SYRINGE IVP SCH ×5 (03:40→23:13)
[2017-01-25] MEDS: MethylPREDNISolone 40 MG/ML VIAL IVP SCH ×2 (04:52→17:42)
[2017-01-25] MEDS: Famotidine 20 MG/2 ML VIAL IVP SCH ×2 (04:52→17:42)
[2017-01-25] MEDS: Budesonide/Formoterol 160/4.5 MDI IH SCH ×2 (07:40→19:50)
[2017-01-25] MEDS ORDERED: Potassium Chloride 40 MEQ in D5% in 0.45% NACL 1,000 ML IVC SCH (08:00)
--- NOTE | 2017-01-25 08:02 | Internal Med Progress Note ---
Date of Encounter: 01/25/17 Time of Encounter: 07:30 - Assessment and plan (1) Ileus Current Visit: Yes Status: Acute Assessment and plan: His abdomen X ray showed Markedly distended small and large bowel compatible with ileus. The cecum measures up to 11.8 cm No signs of complete obstruction GI / Surgery on board Keep replacing electrolytes started on gentle hydration Will try to put NG tube today with GI / IR help (2) Acute respiratory failure with hypoxia and hypercapnia Current Visit: Yes Status: Acute Assessment and plan: Improved Pt is more alert, awake and O x 3 now Will cont BiPAP at 16/8 at HS Cont duoneb and O2 (3) Pneumonia Current Visit: No Status: Suspected Assessment and plan: mostly aspiration PNA Cont Zosyn for now So far blood cx - no growth Sputum cx - P Qualifiers: Pneumonia type: aspiration pneumonia Aspiration pneumonia type: unspecified Laterality: bilateral Lung location: unspecified part of lung Qualified Code(s): J69.0 - Pneumonitis due to inhalation of food and vomit (4) Ascites Current Visit: Yes Status: Acute Assessment and plan: He does have mild to moderate underline ascities..but now with his Ileus would hold on diuretics will do a U/S abd for further eval for paracentesis later Qualifiers: Ascites type: due to alcoholic cirrhosis Qualified Code(s): K70.31 - Alcoholic cirrhosis of liver with ascites (5) Altered mental status Current Visit: No Status: Resolved Assessment and plan: Resolved His AMS - due to metabolic encephalopathy with hypercapnia, dehydration and NICKI Improved mentation Cont close monitoring Qualifiers: Altered mental status type: delirium Qualified Code(s): R41.0 - Disorientation, unspecified (6) COPD (chronic obstructive pulmonary disease) Current Visit: No Status: Acute Assessment and plan: improving cont tapering steroids cont duoneb Qualifiers: COPD type: COPD with acute exacerbation Qualified Code(s): J44.1 - Chronic obstructive pulmonary disease with (acute) exacerbation (7) Acute and chronic respiratory failure with hypoxia Current Visit: No Status: Chronic Assessment and plan: cont duoneb and o2 (8) NICKI (acute kidney injury) Current Visit: Yes Status: Acute Assessment and plan: due to dehydration / medication ( Lasix and HCTZ / Triamterene induced ) Improved Held Lasix..since pt is on NPO now (9) GI bleed Current Visit: Yes Status: Acute Assessment and plan: occult blood +ve No signs of active bleeding Hb stable at 12.2 Cont PPI out pt f/u with GI Qualifiers: GI bleed type/associated pathology: unspecified gastrointestinal hemorrhage type Qualified Code(s): K92.2 - Gastrointestinal hemorrhage, unspecified (10) History of alcohol abuse Current Visit: Yes Status: Chronic (11) Diastolic CHF, chronic Current Visit: Yes Status: Chronic Assessment and plan: not in exacerbation resumed home meds Held Lasix for now (12) Obstructive sleep apnea Current Visit: No Status: Chronic Assessment and plan: on BiPAP will d/c him back to SNF on Wednesday Need to switch to BiPAP from CPAP (13) Hypokalemia Current Visit: No Status: Acute Assessment and plan: due to diuretics pt was on Lasix, HCTZ / Triamterene at SNF cont replacing K + (14) DVT prophylaxis Current Visit: No Status: Acute Assessment and plan: on SCD's - Subjective Interval history: Mr. Dumas is a 61 year old male with PMH of alcohol abuse, COPD on 3L home oxygen and HTN. Patient was recently hospitalized (01/10 - 01/18) for delirium tremens, hyponatremia and pneumonia, which was treated with Levaquin. Patient was sent from [facility] for abdominal distension, lethargy and delirium. Pt ayah was admitted with acute hypoxic and hypercapneic respiratory failure. He is more alert, awake and O x3. Denied any CP. Does c/o Severe SOB and REYES. Denied any cough / expectoration. His abdomen distention little better today. Denied any N / V / Abd pain. Unable to put NG tube last night by staff - Constitutional Vitals: Temp Pulse Resp BP Pulse Ox 97.7 F 79 16 137/95 100 01/25/17 06:49 01/25/17 06:49 01/25/17 07:42 01/25/17 06:49 01/25/17 07:42 General appearance: Present: cooperative, A&O X 3, morbidly obese, pleasant, no acute distress, answers questions appropriately - Head Head exam: Present: atraumatic, normal inspection - Respiratory Respiratory exam: Present: decreased breath sounds, wheezes. Absent: rales, respiratory distress, rhonchi - Cardiovascular Cardiovascular exam: Present: RRR, +S1, +S2. Absent: systolic murmur - GI/Abdominal GI/Abdominal exam: Present: distended (still diffusely distended with tympanic note.. however its little better today), normal bowel sounds, soft, no peritoneal signs. Absent: firm, guarding, rebound, rigid, tenderness - Extremities Exam Extremities exam: Present: pedal edema. Absent: calf tenderness, tenderness - Neurological Exam Neurological exam: Present: alert, oriented X3 - Psychiatric Psychiatric exam: Present: normal affect, normal mood Internal Medicine: Result - Labs CBC & Chem 7: 01/24/17 05:16 01/24/17 05:16 - ABG Interpretation ABG results: ABG ABG pH 7.33 pH Units (7.32-7.45) 01/21/17 15:17 ABG pCO2 54 mmHg (35-45) H 01/21/17 15:17 ABG pO2 92 mmHg (85-104) 01/21/17 15:17 ABG O2 Saturation 97 % (95-98) 01/21/17 15:17 PT/INR, D-dimer PT 18.6 Seconds (9.4-12.1) H 01/24/17 05:16 - Impressions Impressions Chest X-Ray 01/24/17 09:19 IMPRESSION: 1. No lines or tubes. 2. Improved aeration of the right base, otherwise, stable cardiopulmonary status since 01/18/2017 including left base opacity, bilateral effusions, vascular indistinctness, and ground-glass airspace opacities. D/ / 01/24/2017 12:55:28 Aimee Briones MD / rajwinder Interpreting Provider: Aimee Brioens MD Abdomen X-Ray 01/24/17 09:24 IMPRESSION: Continued small and large bowel distention with cecal measurement 11.8 cm. Findings may reflect ileus or distal obstruction. D/ / 01/24/2017 12:56:33 Juan Sctot MD / rajwinder Interpreting Provider: Juan Scott MD Consult Discharge Plan - Plan Referrals: Cristopher Harris [Non-Partnered Physician] -
--- NOTE | 2017-01-25 08:10 | Internal Med Progress Note ---
Date of Encounter: 01/25/17 Time of Encounter: 08:07 - Assessment and plan (1) Ileus Current Visit: Yes Status: Acute Assessment and plan: Improved some; we have discussed risks and benefits of Colonoscopy if needed.. Nursing was present during this conversation. (2) Hypokalemia Current Visit: No Status: Acute Assessment and plan: Support through the day if needed. (3) Generalized weakness Current Visit: No Status: Acute Assessment and plan: Have told Nursing to get up to chair. (4) Morbid obesity with BMI of 50.0-59.9, adult Current Visit: No Status: Acute (5) Acute and chronic respiratory failure with hypoxia Current Visit: No Status: Chronic (6) History of alcohol abuse Current Visit: Yes Status: Chronic - Subjective Interval history: This is Dr. Last, providing GI coverage and Consult for Abd. Distention. He is more awake and alert. Still not having and Abd. pain, N/V. With two very small BM's. IV access was an issue all night, now just starting IV Fluids. K Riders just complete. KUB is pendiing. Labs are pending. - Constitutional Vitals: Temp Pulse Resp BP Pulse Ox 97.7 F 79 16 137/95 100 01/25/17 06:49 01/25/17 06:49 01/25/17 07:42 01/25/17 06:49 01/25/17 07:42 General appearance: Present: cooperative, A&O X 3, morbidly obese, pleasant, no acute distress, answers questions appropriately Exam: He is more awake and alert.. tolerating Ice Chips. - Neck Neck exam general surgery: Present: full ROM, supple, trachea midline - Respiratory Respiratory exam: Present: CTAB - GI/Abdominal GI/Abdominal exam: Present: hypoactive bowel sounds, soft, no peritoneal signs. Absent: firm, guarding, rigid, splenomegaly Additional comments: There has been good improvement in the Abd. Distension. Awaite labs and KUB. If no improvement, will consider Colonoscopy. Need to stay away from Narcotics. Internal Medicine: Result - Labs CBC & Chem 7: 01/24/17 05:16 01/24/17 05:16 - ABG Interpretation ABG results: ABG ABG pH 7.33 pH Units (7.32-7.45) 01/21/17 15:17 ABG pCO2 54 mmHg (35-45) H 01/21/17 15:17 ABG pO2 92 mmHg (85-104) 01/21/17 15:17 ABG O2 Saturation 97 % (95-98) 01/21/17 15:17 PT/INR, D-dimer PT 18.6 Seconds (9.4-12.1) H 01/24/17 05:16 - Impressions Impressions Chest X-Ray 01/24/17 09:19 IMPRESSION: 1. No lines or tubes. 2. Improved aeration of the right base, otherwise, stable cardiopulmonary status since 01/18/2017 including left base opacity, bilateral effusions, vascular indistinctness, and ground-glass airspace opacities. D/ / 01/24/2017 12:55:28 Aimee Briones MD / rajwinder Interpreting Provider: Aimee Briones MD Abdomen X-Ray 01/24/17 09:24 IMPRESSION: Continued small and large bowel distention with cecal measurement 11.8 cm. Findings may reflect ileus or distal obstruction. D/ / 01/24/2017 12:56:33 Juan Scott MD / rajwinder Interpreting Provider: Juan Scott MD Consult Discharge Plan - Plan Referrals: Cristopher Harris [Non-Partnered Physician] -
[2017-01-25 08:21] LABS: Basophils % 0.1 %; Hematocrit 34.7 % (37.5-50.1); Hemoglobin 10.6 g/dL (12.9-16.9); Lymphocytes # 0.6 K/mcL (0.6-4.6); Lymphocytes % 7.2 %; Mean Corpuscular HGB Conc 30.5 g/dL (31.6-35.5); Mean Corpuscular Hemoglobin 29.1 pg (28.0-33.3); Mean Corpuscular Volume 95.3 fL (83.0-100.0); Mean Platelet Volume 9.4 fL (9.4-12.4); Monocytes # 0.4 K/mcL (0.0-1.3); Monocytes % 5.1 %; Neutrophils # 7.5 K/mcL (1.6-8.9); Platelet Count 193 K/mcL (140-400); Red Blood Count 3.64 M/mcL (4.19-5.50); Red Cell Distribution Width 14.2 % (11.5-14.5); Segmented Neutrophils % 86.6 %
[2017-01-25 08:36] LABS: Alanine Aminotransferase 20 Units/L (0-55); Albumin 2.8 g/dL (3.5-5.0); Albumin/Globulin Ratio 0.7 (1.1-2.2); Alkaline Phosphatase 60 Units/L (38-126); Aspartate Amino Transferase 51 Units/L (5-34); BUN/Creatinine Ratio 31 (6-26); Bilirubin,Total 0.6 mg/dL (0.2-1.2); Blood Urea Nitrogen 30 mg/dL (8-26); Calcium 8.6 mg/dL (8.6-10.8); Carbon Dioxide 33 mEq/L (19-29); Chloride 105 mEq/L (98-109); Globulin 4.3 g/dL (2.4-3.5); Glucose 146 mg/dL (70-99); Magnesium 2.2 mg/dL (1.6-2.6); Osmolality,Calculated 303 (280-300); Potassium 3.2 mEq/L (3.5-4.5); Sodium 142 mEq/L (136-145); Total Protein 7.1 g/dL (6.0-8.3); eGFR For African Americans > 60 (> 60); eGFR For Non-African Americans > 60 (> 60)
[2017-01-25] MEDS: Piperacillin/Tazobactam 3.375 GM in D5% in Water (Mini-Bag+) 100 ML IVPB SCH ×2 (10:16→13:24)
[2017-01-25] MEDS: Gabapentin 400 MG CAPSULE PO SCH ×3 (12:32→20:32)
[2017-01-25] MEDS: Fluticasone Propionate Nasal 50 MCG/SPRAY BOTTLE NS SCH (12:32)
[2017-01-25] MEDS: Folic Acid 1 MG TABLET PO SCH (12:32)
[2017-01-25] MEDS: Vitamin B Complex/Vit C/Vit E 1 EACH TABLET PO SCH (12:33)
[2017-01-25] MEDS: Thiamine (B-1) 100 MG TABLET PO SCH (12:33)
[2017-01-25] MEDS: Potassium Chloride Elixir 20 MEQ/15 ML UDC PO SCH ×2 (20:31→20:56)
[2017-01-26] MEDS: Ipratropium/Albuterol Neb 3 ML IH PRN ×7 (00:01→23:28)
[2017-01-26] MEDS: *HR* Morphine 2 MG/ML SYRINGE IVP SCH ×4 (00:11→09:16)
[2017-01-26] MEDS ORDERED: D5% in 0.45% NACL 1,000 ML IVC SCH (04:30)
[2017-01-26 05:57] LABS: Basophils % 0.1 %; Eosinophils % 0.3 %; Hematocrit 35.3 % (37.5-50.1); Hemoglobin 10.8 g/dL (12.9-16.9); Immature Granulocytes % 1.1 % (0-4); Lymphocytes % 9.2 %; Mean Corpuscular HGB Conc 30.6 g/dL (31.6-35.5); Mean Corpuscular Hemoglobin 29.5 pg (28.0-33.3); Mean Corpuscular Volume 96.4 fL (83.0-100.0); Mean Platelet Volume 10.5 fL (9.4-12.4); Monocytes # 0.9 K/mcL (0.0-1.3); Monocytes % 7.9 %; Neutrophils # 8.8 K/mcL (1.6-8.9); Platelet Count 179 K/mcL (140-400); Red Blood Count 3.66 M/mcL (4.19-5.50); Red Cell Distribution Width 14.6 % (11.5-14.5); Segmented Neutrophils % 81.4 %
[2017-01-26 06:05] LABS: BUN/Creatinine Ratio 28 (6-26); Blood Urea Nitrogen 23 mg/dL (8-26); Calcium 8.5 mg/dL (8.6-10.8); Carbon Dioxide 32 mEq/L (19-29); Chloride 105 mEq/L (98-109); Glucose 121 mg/dL (70-99); Magnesium 2.4 mg/dL (1.6-2.6); Osmolality,Calculated 301 (280-300); Potassium 3.2 mEq/L (3.5-4.5); Sodium 143 mEq/L (136-145); eGFR For African Americans > 60 (> 60); eGFR For Non-African Americans > 60 (> 60)
[2017-01-26] MEDS: Famotidine 20 MG/2 ML VIAL IVP SCH ×2 (06:17→16:45)
[2017-01-26] MEDS: MethylPREDNISolone 40 MG/ML VIAL IVP SCH ×2 (06:20→16:45)
[2017-01-26] MEDS: Budesonide/Formoterol 160/4.5 MDI IH SCH ×2 (08:00→20:22)
--- NOTE | 2017-01-26 08:37 | Internal Med Progress Note ---
Date of Encounter: 01/26/17 Time of Encounter: 08:35 - Assessment and plan (1) Ileus Current Visit: Yes Status: Acute Assessment and plan: No sign. change from yesterday. Will plan to decompress today with Colonscopy. If unsuccessful, will then try Neostigmine. If that does not work, will need to consider Cecostomy. (2) Hypokalemia Current Visit: No Status: Acute Assessment and plan: Improving, currently giving about 100 meq a day. (3) Generalized weakness Current Visit: No Status: Acute Assessment and plan: Improved.. working with PT (4) Morbid obesity with BMI of 50.0-59.9, adult Current Visit: No Status: Acute (5) Acute and chronic respiratory failure with hypoxia Current Visit: No Status: Chronic (6) History of alcohol abuse Current Visit: Yes Status: Chronic - Subjective Interval history: This is Dr. Last, providing GI coverage and Consult for Abd. Distention. He is in good spirits, Awake and Alert... No complaints. Discussed plan for Colonoscopy today.. Risk discussed once again and consent signed. I mentioned that if we have a perforation,his Mortality is quite high. K this AM is 3.5, better but not optimal.. his K deficit appears to be about 100 -200 meq per day - Constitutional Vitals: Temp Pulse Resp BP Pulse Ox 97.8 F 70 16 132/84 96 01/26/17 07:04 01/26/17 07:04 01/26/17 08:01 01/26/17 07:04 01/26/17 08:01 General appearance: Present: cooperative, A&O X 3, morbidly obese, pleasant, no acute distress, answers questions appropriately - Neck Neck exam general surgery: Present: full ROM, supple - Respiratory Additional comments: minimal rales R base. - Cardiovascular Cardiovascular exam: Present: RRR. Absent: JVD, tachycardia - GI/Abdominal GI/Abdominal exam: Present: distended, normal bowel sounds, soft. Absent: rigid , tenderness, no peritoneal signs Internal Medicine: Result - Labs CBC & Chem 7: 01/26/17 05:50 01/26/17 05:50 Labs: Short CBC 01/26/17 Range/Units 05:50 WBC 10.8 (4.3-11.1) K/mcL Hgb 10.8 L (12.9-16.9) g/dL Hct 35.3 L (37.5-50.1) % Plt Count 179 (140-400) K/mcL Neutrophils # 8.8 (1.6-8.9) K/mcL BMP 01/25/17 01/25/17 01/26/17 08:00 21:33 01:14 Sodium 142 Potassium 3.2 L 3.2 L 3.5 Chloride 105 Carbon Dioxide 33 H BUN 30 H Creatinine 0.98 Glucose 146 H Calcium 8.6 01/26/17 05:50 Sodium 143 Potassium 3.2 L Chloride 105 Carbon Dioxide 32 H BUN 23 Creatinine 0.83 Glucose 121 H Calcium 8.5 L Liver Function 01/25/17 Range/Units 08:00 Total Bilirubin 0.6 (0.2-1.2) mg/dL AST 51 H (5-34) Units/L ALT 20 (0-55) Units/L Alkaline Phosphatase 60 (38-126) Units/L Albumin 2.8 L (3.5-5.0) g/dL - ABG Interpretation ABG results: ABG ABG pH 7.33 pH Units (7.32-7.45) 01/21/17 15:17 ABG pCO2 54 mmHg (35-45) H 01/21/17 15:17 ABG pO2 92 mmHg (85-104) 01/21/17 15:17 ABG O2 Saturation 97 % (95-98) 01/21/17 15:17 PT/INR, D-dimer PT 18.6 Seconds (9.4-12.1) H 01/24/17 05:16 - Impressions Impressions KUB X-Ray 01/25/17 07:00 IMPRESSION: No appreciable change in the gaseous dilation of both large and small bowel. Again, this is most likely ileus but a distal obstruction remains in the differential. D/ / Valente Weiss MD / Valente Weiss MD Interpreting Provider: Valente Weiss MD Consult Discharge Plan - Plan Referrals: Cristopher Harris [Non-Partnered Physician] -
[2017-01-26] MEDS ORDERED: 0.9 % Sodium Chloride 500 ML ONE (09:08)
[2017-01-26] MEDS ORDERED: *HR* Midazolam HCl 5 MG/5 ML VIAL IVP ONE (11:41)
[2017-01-26] MEDS ORDERED: *HR* FentaNYL (PF) 100 MCG/2 ML VIAL ONE (11:41)
[2017-01-26] MEDS ORDERED: Simethicone 40 MG/0.6 ML MLS IR ONE (12:15)
[2017-01-26] MEDS: *HR* FentaNYL (PF) 100 MCG/2 ML VIAL IVP PRN ×2 (12:15→12:30)
[2017-01-26] MEDS: *HR* Midazolam HCl 2 MG/2 ML VIAL IVP PRN ×2 (12:15→12:30)
--- NOTE | 2017-01-26 12:16 | Pre-Sedation Evaluation ---
Pre-sedation evaluation - Pre-sedation checklist Date of procedure: 01/26/17 Procedure: COLONOSCOPY Recent Vitals: Last Vital Signs Temp 97.6 F 01/26/17 12:00 Pulse 74 01/26/17 12:00 Resp 20 01/26/17 12:00 BP 152/78 01/26/17 12:00 Pulse Ox 93 01/26/17 12:00 H&P (including ROS) documented in medical record: Yes Previous reaction to sedatives/anesthetics: No Dietary Status: NPO after Midnight Airway Assessment: Patient can open mouth completely, TMJ function normal Dentition: poor dentition Possible difficult airway: Yes If Yes;: Morbid obesity, Enlarged neck circumference, short neck ASA Classification *see protocol: CLASS III-Severe systemic disease
[2017-01-26] MEDS ORDERED: 0.9 % Sodium Chloride 1,000 ML IVC SCH (12:30)
--- NOTE | 2017-01-26 13:22 | Event Note ---
Date of Encounter: 01/26/17 Time of Encounter: 13:21 Colonoscopy: Colonoscopy to Ascending Colon; Placed Colonic Decompression tube in. Will advance diet, stop all Narcotics, Tylenol for pain. Will check post procedure KUB.
[2017-01-26] MEDS: Folic Acid 1 MG TABLET PO SCH (16:45)
[2017-01-26] MEDS: Vitamin B Complex/Vit C/Vit E 1 EACH TABLET PO SCH (16:45)
[2017-01-26] MEDS: Acetaminophen 325 MG TABLET PO SCH ×2 (16:45→23:20)
[2017-01-26] MEDS: Potassium Chloride Elixir 20 MEQ/15 ML UDC PO SCH ×2 (16:45→23:20)
[2017-01-26] MEDS: Gabapentin 400 MG CAPSULE PO SCH ×3 (16:46→23:18)
[2017-01-26] MEDS: Thiamine (B-1) 100 MG TABLET PO SCH (16:46)
[2017-01-26] MEDS: Fluticasone Propionate Nasal 50 MCG/SPRAY BOTTLE NS SCH (16:46)
--- NOTE | 2017-01-26 17:18 | Internal Med Progress Note ---
Date of Encounter: 01/26/17 Time of Encounter: 15:30 - Assessment and plan (1) Ileus Current Visit: Yes Status: Acute Assessment and plan: s/p Colonoscopy with colonic decompression tube in little better reviewed f/u KUB - still has dilated SI loops, however little better He still has hypokalemia - cont replacing his K + aggressively avoid any narcotics (2) Acute respiratory failure with hypoxia and hypercapnia Current Visit: Yes Status: Acute Assessment and plan: Improved Pt is more alert, awake and O x 3 now Will cont BiPAP at 16/8 at HS Cont duoneb and O2 (3) Pneumonia Current Visit: No Status: Suspected Assessment and plan: mostly aspiration PNA Cont Zosyn for now So far blood cx - no growth Sputum cx - P Qualifiers: Pneumonia type: aspiration pneumonia Aspiration pneumonia type: unspecified Laterality: bilateral Lung location: unspecified part of lung Qualified Code(s): J69.0 - Pneumonitis due to inhalation of food and vomit (4) Ascites Current Visit: Yes Status: Acute Assessment and plan: He does have mild to moderate underline ascities..but now with his Ileus would hold on diuretics will do a U/S abd for further eval for paracentesis later Qualifiers: Ascites type: due to alcoholic cirrhosis Qualified Code(s): K70.31 - Alcoholic cirrhosis of liver with ascites (5) Altered mental status Current Visit: No Status: Resolved Assessment and plan: Resolved His AMS - due to metabolic encephalopathy with hypercapnia, dehydration and NICKI Improved mentation Cont close monitoring Qualifiers: Altered mental status type: delirium Qualified Code(s): R41.0 - Disorientation, unspecified (6) COPD (chronic obstructive pulmonary disease) Current Visit: No Status: Acute Assessment and plan: improving cont tapering steroids cont duoneb Qualifiers: COPD type: COPD with acute exacerbation Qualified Code(s): J44.1 - Chronic obstructive pulmonary disease with (acute) exacerbation (7) Acute and chronic respiratory failure with hypoxia Current Visit: No Status: Chronic Assessment and plan: cont duoneb and o2 (8) NICKI (acute kidney injury) Current Visit: Yes Status: Acute Assessment and plan: due to dehydration / medication ( Lasix and HCTZ / Triamterene induced ) Improved (9) GI bleed Current Visit: Yes Status: Acute Qualifiers: GI bleed type/associated pathology: unspecified gastrointestinal hemorrhage type Qualified Code(s): K92.2 - Gastrointestinal hemorrhage, unspecified (10) History of alcohol abuse Current Visit: Yes Status: Chronic (11) Diastolic CHF, chronic Current Visit: Yes Status: Chronic Assessment and plan: not in exacerbation resumed home meds Held Lasix for now (12) Obstructive sleep apnea Current Visit: No Status: Chronic Assessment and plan: on BiPAP will d/c him back to SNF on Wednesday Need to switch to BiPAP from CPAP (13) Hypokalemia Current Visit: No Status: Acute Assessment and plan: Improving, currently giving about 100 meq a day. (14) DVT prophylaxis Current Visit: No Status: Acute Assessment and plan: on SCD's - Subjective Interval history: Mr. Dumas is a 61 year old male with PMH of alcohol abuse, COPD on 3L home oxygen and HTN. Patient was recently hospitalized (01/10 - 01/18) for delirium tremens, hyponatremia and pneumonia, which was treated with Levaquin. Patient was sent from [facility] for abdominal distension, lethargy and delirium. Pt seems was admitted with acute hypoxic and hypercapneic respiratory failure. He is more alert, awake and O x3. Denied any CP. Does c/o Severe SOB and REYES. Denied any cough / expectoration. He just came back from colonoscopy. His abdomen looks less distended and much softer today. - Constitutional Vitals: Temp Pulse Resp BP Pulse Ox 97.6 F 69 18 95/59 93 01/26/17 16:02 01/26/17 16:02 01/26/17 16:02 01/26/17 16:02 01/26/17 16:02 General appearance: Present: cooperative, A&O X 3, morbidly obese, pleasant, no acute distress, answers questions appropriately - Head Head exam: Present: atraumatic, normal inspection - Respiratory Respiratory exam: Present: decreased breath sounds, wheezes. Absent: rales, respiratory distress, rhonchi - Cardiovascular Cardiovascular exam: Present: RRR, +S1, +S2. Absent: systolic murmur - GI/Abdominal GI/Abdominal exam: Present: distended, normal bowel sounds, soft. Absent: rebound, rigid, tenderness - Extremities Exam Extremities exam: Present: pedal edema. Absent: calf tenderness, tenderness - Psychiatric Psychiatric exam: Present: normal affect, normal mood Internal Medicine: Result - Labs CBC & Chem 7: 01/26/17 05:50 01/26/17 05:50 Labs: Short CBC 01/26/17 Range/Units 05:50 WBC 10.8 (4.3-11.1) K/mcL Hgb 10.8 L (12.9-16.9) g/dL Hct 35.3 L (37.5-50.1) % Plt Count 179 (140-400) K/mcL Neutrophils # 8.8 (1.6-8.9) K/mcL BMP 01/25/17 01/26/17 01/26/17 21:33 01:14 05:50 Sodium 143 Potassium 3.2 L 3.5 3.2 L Chloride 105 Carbon Dioxide 32 H BUN 23 Creatinine 0.83 Glucose 121 H Calcium 8.5 L - ABG Interpretation ABG results: ABG ABG pH 7.33 pH Units (7.32-7.45) 01/21/17 15:17 ABG pCO2 54 mmHg (35-45) H 01/21/17 15:17 ABG pO2 92 mmHg (85-104) 01/21/17 15:17 ABG O2 Saturation 97 % (95-98) 01/21/17 15:17 PT/INR, D-dimer PT 18.6 Seconds (9.4-12.1) H 01/24/17 05:16 - Impressions Impressions KUB X-Ray 01/26/17 13:14 IMPRESSION: There are multiple dilated gas filled bowel loops, predominantly small bowel. Findings are slightly improved compared to prior. D/ / Jessica Brennan MD / Jessica Brennan MD Interpreting Provider: Jessica Brennan MD Consult Discharge Plan - Plan Referrals: Cristopher Harris [Non-Partnered Physician] -
[2017-01-27] MEDS: Ipratropium/Albuterol Neb 3 ML IH PRN ×6 (03:52→23:12)
[2017-01-27 05:04] LABS: BUN/Creatinine Ratio 23 (6-26); Blood Urea Nitrogen 15 mg/dL (8-26); Calcium 8.3 mg/dL (8.6-10.8); Carbon Dioxide 30 mEq/L (19-29); Chloride 107 mEq/L (98-109); Glucose 101 mg/dL (70-99); Magnesium 2.2 mg/dL (1.6-2.6); Osmolality,Calculated 293 (280-300); Potassium 3.5 mEq/L (3.5-4.5); Sodium 141 mEq/L (136-145); eGFR For African Americans > 60 (> 60); eGFR For Non-African Americans > 60 (> 60)
[2017-01-27] MEDS: Famotidine 20 MG/2 ML VIAL IVP SCH ×2 (05:51→18:02)
[2017-01-27] MEDS: Acetaminophen 325 MG TABLET PO SCH (05:51)
[2017-01-27] MEDS: Budesonide/Formoterol 160/4.5 MDI IH SCH ×2 (07:24→20:32)
[2017-01-27] MEDS ORDERED: Acetaminophen 325 MG TABLET PO PRN (08:09)
--- NOTE | 2017-01-27 08:27 | Internal Med Progress Note ---
Date of Encounter: 01/27/17 Time of Encounter: 08:23 - Assessment and plan (1) Ileus Current Visit: Yes Status: Resolved Assessment and plan: Looking really well.. will cont. diet, and supplement Potassium aggressively. Increased activity would help tremendously. Plan will be to pull the tube tomorrow. Potential DC from my standpoint would be . or Wednesday. Need to wean down the steroids as this can extend the Ileus (2) Hypokalemia Current Visit: No Status: Acute Assessment and plan: Still would like to see this value close to 4.0 (3) Generalized weakness Current Visit: No Status: Chronic (4) Morbid obesity with BMI of 50.0-59.9, adult Current Visit: No Status: Chronic (5) Acute and chronic respiratory failure with hypoxia Current Visit: No Status: Chronic (6) History of alcohol abuse Current Visit: Yes Status: Chronic - Subjective Interval history: This is Dr. Last, providing GI coverage and Consult for Abd. Distention. He is in good spirits, Awake and Alert... No complaints. Abd. with much less distention. Nursing with no issue with Colon decompression tube. - Constitutional Vitals: Temp Pulse Resp BP Pulse Ox 97.4 F L 64 18 134/57 100 01/27/17 06:51 01/27/17 06:51 01/27/17 07:25 01/27/17 06:51 01/27/17 07:25 General appearance: Present: cooperative, A&O X 3, morbidly obese, pleasant, no acute distress, answers questions appropriately - Respiratory Respiratory exam: Present: CTAB - Cardiovascular Cardiovascular exam: Present: RRR. Absent: JVD Internal Medicine: Result - Labs CBC & Chem 7: 01/26/17 05:50 01/27/17 04:35 Labs: BMP 01/27/17 04:35 Sodium 141 Potassium 3.5 Chloride 107 Carbon Dioxide 30 H BUN 15 Creatinine 0.66 L Glucose 101 H Calcium 8.3 L - ABG Interpretation ABG results: ABG ABG pH 7.33 pH Units (7.32-7.45) 01/21/17 15:17 ABG pCO2 54 mmHg (35-45) H 01/21/17 15:17 ABG pO2 92 mmHg (85-104) 01/21/17 15:17 ABG O2 Saturation 97 % (95-98) 01/21/17 15:17 PT/INR, D-dimer PT 18.6 Seconds (9.4-12.1) H 01/24/17 05:16 - Impressions Impressions KUB X-Ray 01/26/17 13:14 IMPRESSION: There are multiple dilated gas filled bowel loops, predominantly small bowel. Findings are slightly improved compared to prior. D/ / Jessica Brennan MD / Jessica Brennan MD Interpreting Provider: Jessica Brennan MD Consult Discharge Plan - Plan Referrals: Cristopher Harris [Non-Partnered Physician] -
[2017-01-27] MEDS ORDERED: predniSONE 20 MG TABLET PO SCH ×2 (09:00→11:49)
[2017-01-27] MEDS ORDERED: 0.9 % Sodium Chloride 250 ML ONE (10:09)
[2017-01-27] MEDS: Potassium Chloride Elixir 20 MEQ/15 ML UDC PO SCH (10:13)
[2017-01-27] MEDS: Folic Acid 1 MG TABLET PO SCH (10:14)
[2017-01-27] MEDS: Gabapentin 400 MG CAPSULE PO SCH ×3 (10:15→20:56)
[2017-01-27] MEDS: Vitamin B Complex/Vit C/Vit E 1 EACH TABLET PO SCH (10:15)
[2017-01-27] MEDS: Thiamine (B-1) 100 MG TABLET PO SCH (10:16)
[2017-01-27] MEDS: Fluticasone Propionate Nasal 50 MCG/SPRAY BOTTLE NS SCH (10:17)
--- NOTE | 2017-01-27 11:53 | Internal Med Progress Note ---
Date of Encounter: 01/27/17 Time of Encounter: 11:00 - Assessment and plan (1) Ileus Current Visit: Yes Status: Resolved Assessment and plan: s/p Colonoscopy with colonic decompression tube in Much better today Improving K + cont K + supplements avoid any narcotics (2) Acute respiratory failure with hypoxia and hypercapnia Current Visit: Yes Status: Acute Assessment and plan: Improved Pt is more alert, awake and O x 3 now Will cont BiPAP at 16/8 at HS Cont duoneb and O2 (3) Pneumonia Current Visit: No Status: Suspected Assessment and plan: mostly aspiration PNA changed Abx to Augmentin PO So far blood cx - no growth Sputum cx - P Qualifiers: Pneumonia type: aspiration pneumonia Aspiration pneumonia type: unspecified Laterality: bilateral Lung location: unspecified part of lung Qualified Code(s): J69.0 - Pneumonitis due to inhalation of food and vomit (4) Ascites Current Visit: Yes Status: Acute Assessment and plan: He does have mild to moderate underline ascities..but now with his Ileus would hold on diuretics recommend further eval for paracentesis as an out pt Qualifiers: Ascites type: due to alcoholic cirrhosis Qualified Code(s): K70.31 - Alcoholic cirrhosis of liver with ascites (5) Altered mental status Current Visit: No Status: Resolved Assessment and plan: Resolved His AMS - due to metabolic encephalopathy with hypercapnia, dehydration and NICKI Improved mentation Cont close monitoring Qualifiers: Altered mental status type: delirium Qualified Code(s): R41.0 - Disorientation, unspecified (6) COPD (chronic obstructive pulmonary disease) Current Visit: No Status: Acute Assessment and plan: improving cont tapering steroids cont duoneb Qualifiers: COPD type: COPD with acute exacerbation Qualified Code(s): J44.1 - Chronic obstructive pulmonary disease with (acute) exacerbation (7) Acute and chronic respiratory failure with hypoxia Current Visit: No Status: Chronic Assessment and plan: cont duoneb and o2 (8) NICKI (acute kidney injury) Current Visit: Yes Status: Acute Assessment and plan: due to dehydration / medication ( Lasix and HCTZ / Triamterene induced ) Improved (9) GI bleed Current Visit: Yes Status: Acute Assessment and plan: occult blood +ve No signs of active bleeding Hb stable at 12.2 Cont PPI out pt f/u with GI Qualifiers: GI bleed type/associated pathology: unspecified gastrointestinal hemorrhage type Qualified Code(s): K92.2 - Gastrointestinal hemorrhage, unspecified (10) History of alcohol abuse Current Visit: Yes Status: Chronic (11) Diastolic CHF, chronic Current Visit: Yes Status: Chronic Assessment and plan: not in exacerbation resumed home meds Held Lasix for now (12) Obstructive sleep apnea Current Visit: No Status: Chronic Assessment and plan: on BiPAP will d/c him back to SNF on Wednesday Need to switch to BiPAP from CPAP (13) Hypokalemia Current Visit: No Status: Acute Assessment and plan: Still would like to see this value close to 4.0 (14) DVT prophylaxis Current Visit: No Status: Acute Assessment and plan: on SCD's - Subjective Interval history: Mr. Dumas is a 61 year old male with PMH of alcohol abuse, COPD on 3L home oxygen and HTN. Patient was recently hospitalized (01/10 - 01/18) for delirium tremens, hyponatremia and pneumonia, which was treated with Levaquin. Patient was sent from [facility] for abdominal distension, lethargy and delirium. Pt seems was admitted with acute hypoxic and hypercapneic respiratory failure. He is more alert, awake and O x3. Denied any CP. His SOB / REYES improved. Denied any cough / expectoration. Had colonoscopy on 02/04. His abdomen looks less distended and much softer today.Denied any new complaints. Tolerating PO intake well - Constitutional Vitals: Temp Pulse Resp BP Pulse Ox 98.0 F 63 18 108/55 98 01/27/17 10:55 01/27/17 10:55 01/27/17 11:10 01/27/17 10:55 01/27/17 11:10 General appearance: Present: cooperative, A&O X 3, morbidly obese, pleasant, no acute distress, answers questions appropriately - Head Head exam: Present: atraumatic, normal inspection - Respiratory Respiratory exam: Present: decreased breath sounds, wheezes. Absent: respiratory distress, rhonchi - Cardiovascular Cardiovascular exam: Present: RRR, +S1, +S2. Absent: systolic murmur - GI/Abdominal GI/Abdominal exam: Present: distended (improved), normal bowel sounds, soft. Absent: firm, guarding, rebound, rigid, tenderness - Extremities Exam Extremities exam: Present: pedal edema. Absent: calf tenderness, tenderness - Neurological Exam Neurological exam: Present: alert, oriented X3 - Psychiatric Psychiatric exam: Present: normal affect, normal mood Internal Medicine: Result - Labs CBC & Chem 7: 01/26/17 05:50 01/27/17 04:35 Labs: BMP 01/27/17 04:35 Sodium 141 Potassium 3.5 Chloride 107 Carbon Dioxide 30 H BUN 15 Creatinine 0.66 L Glucose 101 H Calcium 8.3 L - ABG Interpretation ABG results: ABG ABG pH 7.33 pH Units (7.32-7.45) 01/21/17 15:17 ABG pCO2 54 mmHg (35-45) H 01/21/17 15:17 ABG pO2 92 mmHg (85-104) 01/21/17 15:17 ABG O2 Saturation 97 % (95-98) 01/21/17 15:17 PT/INR, D-dimer PT 18.6 Seconds (9.4-12.1) H 01/24/17 05:16 - Impressions Impressions KUB X-Ray 01/26/17 13:14 IMPRESSION: There are multiple dilated gas filled bowel loops, predominantly small bowel. Findings are slightly improved compared to prior. D/ / Jessica Brennan MD / Jessica Brennan MD Interpreting Provider: Jessica Brennan MD Consult Discharge Plan - Plan Referrals: Cristopher Harris [Non-Partnered Physician] -
[2017-01-27] MEDS ORDERED: Potassium Chloride Elixir 20 MEQ/15 ML UDC PO SCH (21:00)
[2017-01-28] MEDS: Ipratropium/Albuterol Neb 3 ML IH PRN ×3 (04:41→11:40)
[2017-01-28] MEDS: Famotidine 20 MG/2 ML VIAL IVP SCH (05:21)
[2017-01-28 05:39] LABS: BUN/Creatinine Ratio 17 (6-26); Blood Urea Nitrogen 12 mg/dL (8-26); Calcium 8.2 mg/dL (8.6-10.8); Carbon Dioxide 30 mEq/L (19-29); Chloride 105 mEq/L (98-109); Glucose 110 mg/dL (70-99); Magnesium 1.9 mg/dL (1.6-2.6); Osmolality,Calculated 288 (280-300); Potassium 4.2 mEq/L (3.5-4.5); Sodium 139 mEq/L (136-145); eGFR For African Americans > 60 (> 60); eGFR For Non-African Americans > 60 (> 60)
[2017-01-28] MEDS: Budesonide/Formoterol 160/4.5 MDI IH SCH (07:31)
[2017-01-28 07:53] VITALS: BP 150/75
--- NOTE | 2017-01-28 08:49 | Internal Med Progress Note ---
Date of Encounter: 01/28/17 Time of Encounter: 08:46 - Assessment and plan (1) Ileus Current Visit: Yes Status: Resolved Assessment and plan: For the most part resolved. Have pulled colonic tube. Have stopped all antibiotics with risk of C. Diff, as well as having 7 days of antibiotic prior to Augmentin. Will sign off for now.. may consider Aldactone po to help Potassium. Will leave this to the Hospitalist (2) Hypokalemia Current Visit: No Status: Resolved Assessment and plan: Back off the po dose. (3) Generalized weakness Current Visit: No Status: Chronic (4) Morbid obesity with BMI of 50.0-59.9, adult Current Visit: No Status: Chronic (5) Acute and chronic respiratory failure with hypoxia Current Visit: No Status: Chronic (6) History of alcohol abuse Current Visit: Yes Status: Chronic - Subjective Interval history: This is Dr. Last, providing GI coverage and Consult for Abd. Distention. He is in good spirits, Awake and Alert... No complaints. Abd. with much less distention. Nursing with no issue with Colon decompression tube. Reports no N/V. - Constitutional Vitals: Temp Pulse Resp BP Pulse Ox 97.6 F 66 22 150/75 100 01/28/17 07:00 01/28/17 07:00 01/28/17 07:32 01/28/17 07:00 01/28/17 07:32 General appearance: Present: cooperative, A&O X 3, morbidly obese, pleasant, no acute distress, answers questions appropriately - GI/Abdominal GI/Abdominal exam: Present: hypoactive bowel sounds, soft, no peritoneal signs. Absent: distended, splenomegaly, tenderness Internal Medicine: Result - Labs CBC & Chem 7: 01/26/17 05:50 01/28/17 04:30 Labs: BMP 01/28/17 04:30 Sodium 139 Potassium 4.2 Chloride 105 Carbon Dioxide 30 H BUN 12 Creatinine 0.70 L Glucose 110 H Calcium 8.2 L - ABG Interpretation ABG results: ABG ABG pH 7.33 pH Units (7.32-7.45) 01/21/17 15:17 ABG pCO2 54 mmHg (35-45) H 01/21/17 15:17 ABG pO2 92 mmHg (85-104) 01/21/17 15:17 ABG O2 Saturation 97 % (95-98) 01/21/17 15:17 PT/INR, D-dimer PT 18.6 Seconds (9.4-12.1) H 01/24/17 05:16 Consult Discharge Plan - Plan Referrals: Cristopher Harris [Non-Partnered Physician] -
[2017-01-28] MEDS ORDERED: Famotidine 20 MG TABLET PO SCH (09:00)
[2017-01-28] MEDS ORDERED: Potassium Chloride Elixir 20 MEQ/15 ML UDC PO SCH (09:00)
[2017-01-28] MEDS: Fluticasone Propionate Nasal 50 MCG/SPRAY BOTTLE NS SCH (10:33)
[2017-01-28] MEDS: Thiamine (B-1) 100 MG TABLET PO SCH (10:33)
[2017-01-28] MEDS: Gabapentin 400 MG CAPSULE PO SCH (10:33)
[2017-01-28] MEDS: Folic Acid 1 MG TABLET PO SCH (10:33)
[2017-01-28] MEDS: Vitamin B Complex/Vit C/Vit E 1 EACH TABLET PO SCH (10:33)
--- NOTE | 2017-01-28 11:24 | Discharge Summary ---
Date of Encounter: 01/28/17 Time of Encounter: 11:17 - Discharge Diagnosis (1) Ileus Priority: Secondary Status: Resolved (2) Acute respiratory failure with hypoxia and hypercapnia Priority: Primary Status: Resolved (3) Pneumonia Priority: Primary Status: Suspected Qualifiers: Pneumonia type: aspiration pneumonia Aspiration pneumonia type: unspecified Laterality: bilateral Lung location: unspecified part of lung Qualified Code(s): J69.0 - Pneumonitis due to inhalation of food and vomit (4) Ascites Priority: Secondary Status: Acute Qualifiers: Ascites type: due to alcoholic cirrhosis Qualified Code(s): K70.31 - Alcoholic cirrhosis of liver with ascites (5) Altered mental status Priority: Primary Status: Resolved Qualifiers: Altered mental status type: delirium Qualified Code(s): R41.0 - Disorientation, unspecified (6) COPD (chronic obstructive pulmonary disease) Priority: Primary Status: Acute Qualifiers: COPD type: COPD with acute exacerbation Qualified Code(s): J44.1 - Chronic obstructive pulmonary disease with (acute) exacerbation (7) Acute and chronic respiratory failure with hypoxia Priority: Secondary Status: Chronic (8) NICKI (acute kidney injury) Priority: Secondary Status: Acute (9) GI bleed Priority: Secondary Status: Acute Qualifiers: GI bleed type/associated pathology: unspecified gastrointestinal hemorrhage type Qualified Code(s): K92.2 - Gastrointestinal hemorrhage, unspecified (10) History of alcohol abuse Priority: Secondary Status: Chronic (11) Diastolic CHF, chronic Priority: Secondary Status: Chronic (12) Obstructive sleep apnea Priority: Secondary Status: Chronic (13) Hypokalemia Priority: Secondary Status: Resolved - Discharge Medications Prescriptions: Amoxicillin/Clavulanate [Augmentin] 875 mg PO BIDWM #4 tablet HYDROcodone/Acet 7.5/325 mg [[place] 7.5-325 mg] 1 tab PO Q8H PRN #15 PRN Reason: Pain Spironolactone [Aldactone] 50 mg PO DAILY #30 tablet Home Medications: Atorvastatin [Lipitor] 40 mg PO HS 07/29/15 [History] Sertraline [Zoloft] 150 mg PO QAM 07/29/15 [History] Albuterol Sulfate [Albuterol Inhaler] 2 puff IH Q4HR PRN 10/25/15 [History] Fluticasone Propionate Nasal [Flonase] 2 spray NS DAILY 7 Days 11/10/15 [Rx] Budesonide/Formoterol 160/4.5 [Symbicort 160/4.5] 2 puff IH BIDR 01/10/17 [ History] Omeprazole [PriLOSEC] 40 mg PO DAILY 01/10/17 [History] Oxygen 1 each .ROUTE AD 01/10/17 [History] Folic Acid 1 mg PO DAILY tab 01/18/17 [Rx] Furosemide [Lasix] 40 mg PO BIDDIURETIC tab 01/18/17 [Rx] Gabapentin [Neurontin] 800 mg PO TID #30 01/18/17 [Rx] Ipratropium/Albuterol Neb [Duoneb] 3 ml IH [id number] inh 01/18/17 [Rx] Metoprolol XL (24 HR) Succ [Toprol Xl] 50 mg PO DAILY 01/18/17 [Rx] Thiamine (B-1) [Vitamin B-1] 100 mg PO DAILY tab 01/18/17 [Rx] Vitamin B Complex/Vit C/Vit E [Stresstab] 1 each PO DAILY tab 01/18/17 [Rx] Nitroglycerin [Nitrostat] 0.4 mg SL Q5M PRN 01/20/17 [History] Amoxicillin/Clavulanate [Augmentin] 875 mg PO BIDWM #4 tablet 01/28/17 [Rx] HYDROcodone/Acet 7.5/325 mg [[place] 7.5-325 mg] 1 tab PO Q8H PRN #15 01/28/17 [ Rx] Spironolactone [Aldactone] 50 mg PO DAILY #30 tablet 01/28/17 [Rx] predniSONE [PredniSONE] 20 mg PO DAILY 4 Days 01/28/17 [Rx] Allergies/Adverse Reactions: Allergies azithromycin [From Zithromax] Allergy (Verified 01/10/17 13:39) Rash Date of admission: 01/20/17 20:58 Primary care physician: PCP NONE Consults: 01/20/17 23:03 Consult to Er Medical Technician [CONS] Routine Reason for SW Consult: ECF follow up 01/21/17 10:38 Consult to Interpret Exam [CONS] Routine Consulting Provider: Sukumar Covarrubias Consult to Interpret Exam: Interpret EEG 01/22/17 09:51 Consult to Occupational Therapy [CONS] Routine Comment: Evaluate, develop and implement POC Reason for Consult: discharge recommendations. Consult to Physical Therapy [CONS] Routine Comment: Evaluate, develop and implement POC Reason for Consult: discharge recommendations. 01/24/17 14:06 Consult to Gastroenterology [CONS] Stat Consulting Provider: Jonatan Stovall Reason for Consult: Acute ileus Call Completed: Yes 01/24/17 18:09 Consult to Wound Care [CONS] Routine Reason for Consult: Bariatric bed and excoriation/ skin tears to bottom area Call Completed: No 01/25/17 12:10 Consult to Invasive Line Access Team [CONS] Routine Reason for Consult: limited IV access Line Type: EPIV PICC line indications: Limited vascular access - Patient Status Disposition: Transfer SNF Condition: Good Overall status at discharge: patient is back to baseline - Discharge Instructions Follow Up With: Cristopher Harris [Non-Partnered Physician] - Additional Instructions: f/u with PCP in one week f/u GI Dr. Martinez in 2 weeks for your Ascities and Liver problems - Diet and Activity Activity: increase activity as tolerated Diet: low salt diet Hospital course: Mr. Dumas is a 61 year old male with PMH of alcohol abuse, COPD on 3L home oxygen and HTN. Patient was recently hospitalized (01/10 - 01/18) for delirium tremens, hyponatremia and pneumonia, which was treated with Levaquin. Patient was sent from [facility] for abdominal distension, lethargy and delirium. Pt seems was admitted with acute hypoxic and hypercapneic respiratory failure. Pt was admitted to PCU initially and placed him on BiPAP, started him high dose IV steroids and duonebs. His mentation started improving and he was off the BiPAP during day time, using only at bed time. He was also in severe NICKI initially due to dehydration and too many diuretics usage. With gentle hydration his Cr improved. He was required high dose of K + supplements. He also happened to have severe ileus could due to severe hypokalemia. We did consult GI Dr. Hillman who tried for conservative care initially with enema and rectal tube but his Ileus had not improved. So he did go for colonoscopic decompression on 01/26/17. Now his ileus improved, rectal tube got removed this morning. His K + also improved. He also has chronic mild to moderate ascities, recommend to f/u with PCP as an out pt regarding that. Started him back on diuretics today with Lasix 40mg BID and Aldactone 50mg daily , hoping it will keep his K + in balance. Regarding his pneumonia he was treated with abx Zosyn initially , later swicth to Augmentin for total 10 days abx course. He does get benefit with BiPAP at bed time instead of CPAP. Will communicate with SNF to arrange this. - Time Spent with Patient Total time spent providing and/or coordinating discharge services: Greater than 30 minutes (Spent 45 minutes on this patient's discharge summary due to complex medical problems and patient needed a lot of education regarding discharge instructions) - Constitutional Vitals: Temp Pulse Resp BP Pulse Ox 97.6 F 66 22 150/75 100 01/28/17 07:00 01/28/17 07:00 01/28/17 07:32 01/28/17 07:00 01/28/17 07:32 General appearance: Present: cooperative, A&O X 3, morbidly obese, pleasant, no acute distress, answers questions appropriately - Head Head exam: Present: atraumatic, normal inspection - Respiratory Respiratory exam: Present: decreased breath sounds, wheezes. Absent: rales, respiratory distress, rhonchi - Cardiovascular Cardiovascular exam: Present: RRR, +S1, +S2. Absent: systolic murmur - GI/Abdominal GI/Abdominal exam: Present: distended (improved), normal bowel sounds, soft. Absent: guarding, rebound, rigid, tenderness - Extremities Exam Extremities exam: Present: pedal edema. Absent: calf tenderness, tenderness - Neurological Exam Neurological exam: Present: alert, oriented X3 - Psychiatric Psychiatric exam: Present: normal affect, normal mood
--- NOTE | 2017-01-28 13:20 | Physician Discharge Referral ---
ExtendedCare Referral Info Transfer To: ECF Provider in Charge after Transfer: PCP Institutional Level of Care: Skilled - Diagnosis (1) Ileus Status: Resolved (2) Acute respiratory failure with hypoxia and hypercapnia Status: Resolved (3) Pneumonia Status: Suspected (4) Ascites Status: Acute (5) Altered mental status Status: Resolved (6) COPD (chronic obstructive pulmonary disease) Status: Acute (7) Acute and chronic respiratory failure with hypoxia Status: Chronic (8) NICKI (acute kidney injury) Status: Acute (9) GI bleed Status: Acute (10) History of alcohol abuse Status: Chronic (11) Diastolic CHF, chronic Status: Chronic (12) Obstructive sleep apnea Status: Chronic (13) Hypokalemia Status: Resolved - Transfer Medications Prescriptions: Amoxicillin/Clavulanate [Augmentin] 875 mg PO BIDWM #4 tablet HYDROcodone/Acet 7.5/325 mg [[place] 7.5-325 mg] 1 tab PO Q8H PRN #15 PRN Reason: Pain Spironolactone [Aldactone] 50 mg PO DAILY #30 tablet Home Medications: Atorvastatin [Lipitor] 40 mg PO HS 07/29/15 [History] Sertraline [Zoloft] 150 mg PO QAM 07/29/15 [History] Albuterol Sulfate [Albuterol Inhaler] 2 puff IH Q4HR PRN 10/25/15 [History] Fluticasone Propionate Nasal [Flonase] 2 spray NS DAILY 7 Days 11/10/15 [Rx] Budesonide/Formoterol 160/4.5 [Symbicort 160/4.5] 2 puff IH BIDR 01/10/17 [ History] Omeprazole [PriLOSEC] 40 mg PO DAILY 01/10/17 [History] Oxygen 1 each .ROUTE AD 01/10/17 [History] Folic Acid 1 mg PO DAILY tab 01/18/17 [Rx] Furosemide [Lasix] 40 mg PO BIDDIURETIC tab 01/18/17 [Rx] Gabapentin [Neurontin] 800 mg PO TID #30 01/18/17 [Rx] Ipratropium/Albuterol Neb [Duoneb] 3 ml IH [id number] inh 01/18/17 [Rx] Metoprolol XL (24 HR) Succ [Toprol Xl] 50 mg PO DAILY 01/18/17 [Rx] Thiamine (B-1) [Vitamin B-1] 100 mg PO DAILY tab 01/18/17 [Rx] Vitamin B Complex/Vit C/Vit E [Stresstab] 1 each PO DAILY tab 01/18/17 [Rx] Nitroglycerin [Nitrostat] 0.4 mg SL Q5M PRN 01/20/17 [History] Amoxicillin/Clavulanate [Augmentin] 875 mg PO BIDWM #4 tablet 01/28/17 [Rx] HYDROcodone/Acet 7.5/325 mg [[place] 7.5-325 mg] 1 tab PO Q8H PRN #15 01/28/17 [ Rx] Spironolactone [Aldactone] 50 mg PO DAILY #30 tablet 01/28/17 [Rx] predniSONE [PredniSONE] 20 mg PO DAILY 4 Days 01/28/17 [Rx] Allergies/Adverse Reactions: Allergies azithromycin [From Zithromax] Allergy (Verified 01/10/17 13:39) Rash - Respiratory Orders Smoking Cessation: Smoking cessation has been advised. For more information, call the [place] Tobacco Quit Line at 0-845-PRCL-NOW. CERTIFICATION: I certify that the transfer of the above named patient to an Extended Care Facility is necessary for the continuing treatment of the diagnosis listed. The above information is true and accurate reflection of patient's current condition. Confidential - Redisclosure prohibited without a patient's written consent.
== END 2017-01-28 14:36 | DRG 133 ==
LOC: EMEROO 17:35 → 2NNU 20:58 → 2NENU 01-23 00:12
PROVIDERS: ADMIT Family Medicine; ATTEND Family Medicine

== ENCOUNTER 2017-08-22 19:55 | Inpatient (IN) ==
[2017-08-22] MEDS ORDERED: Ondansetron 4 MG/2 ML VIAL IVP ONE (20:32)
--- NOTE | 2017-08-22 20:36 | Emergency Department Note ---
Disposition Clinical Impression: Unstable angina Disposition: Admitted As Inpatient Condition: Fair Referrals: NONE,PCP [Primary Care Provider] - Forms: ED Satisfaction Letter Time of Disposition: 22:12 Chest Pain HPI - General Chief Complaint: ED Chest Pain Stated Complaint: Chest Pain Time Seen by Provider: 08/22/17 20:01 Source: patient Limitations: no limitations Vital Signs Reviewed: Yes Nursing Notes Reviewed: Yes - History of Present Illness HPI Narrative: 62-year-old male presents emergency of chest pain. Located to the left anterior chest wall. Intermittent for the past 2 days. Seems to last 10-15 seconds and then will go away. Sharp in nature. Associated with nausea and vomiting. Patient denies history of coronary disease. Has not had a stress test in over 2 years. He took 1 aspirin in route to the ER. Given via EMS. Severity scale (1-10): 6 - Related Data Home Medications Medication Instructions Recorded Confirmed Atorvastatin [Lipitor] 40 mg PO HS 07/29/15 01/20/17 Sertraline [Zoloft] 150 mg PO QAM 07/29/15 01/20/17 Albuterol Sulfate [Albuterol 2 puff IH Q4HR PRN 10/25/15 01/20/17 Inhaler] Budesonide/Formoterol 160/4.5 2 puff IH BIDR 01/10/17 01/20/17 [Symbicort 160/4.5] Omeprazole [PriLOSEC] 40 mg PO DAILY 01/10/17 01/20/17 Oxygen 1 each .ROUTE AD 01/10/17 01/20/17 Nitroglycerin [Nitrostat] 0.4 mg SL Q5M PRN 01/20/17 01/20/17 Previous Rx's Medication Instructions Recorded Fluticasone Propionate Nasal 2 spray NS DAILY 7 Days bottle 11/10/15 [Flonase] Folic Acid 1 mg PO DAILY tab 01/18/17 Furosemide [Lasix] 40 mg PO BIDDIURETIC tab 01/18/17 Gabapentin [Neurontin] 800 mg PO TID #30 01/18/17 Ipratropium/Albuterol Neb [Duoneb] 3 ml IH [id number] inh 01/18/17 Metoprolol XL (24 HR) Succ [Toprol 50 mg PO DAILY 01/18/17 Xl] Thiamine (B-1) [Vitamin B-1] 100 mg PO DAILY tab 01/18/17 Vitamin B Complex/Vit C/Vit E 1 each PO DAILY tab 01/18/17 [Stresstab] Amoxicillin/Clavulanate [Augmentin] 875 mg PO BIDWM #4 tablet 01/28/17 HYDROcodone/Acet 7.5/325 mg [[place] 1 tab PO Q8H PRN #15 01/28/17 7.5-325 mg] Spironolactone [Aldactone] 50 mg PO DAILY #30 tablet 01/28/17 predniSONE [PredniSONE] 20 mg PO DAILY 4 Days tab 01/28/17 Allergies Allergy/AdvReac Type Severity Reaction Status Date / Time azithromycin [From Zithromax] Allergy Rash Verified 01/10/17 13:39 Review of Systems: Gen.: No fevers or chills or new weakness Eyes: Denies double vision or any vision changes Ears: Denies any otalgia Pharynx: Denies sore throat CV: Positive for chest pain Respiratory: Denies any cough or sputum production. No shortness of breath. GI: Denies any nausea, vomiting, diarrhea, constipation. Denies abdominal pain Neuro: Denies any headache. No problems with ambulation. No numbness. Skin: Denies any rashes or abrasions Psych: Denies any depression or suicidal or homicidal ideation Musculoskeletal: Denies any arthralgias or myalgias Chest Pain PMH - Past Medical History Medical history: Reports: CHF, COPD, hypertension, other Surgical history: Reports: other (Abdominal hernia repair) Psychiatric history: Reports: no psych history - Social History Smoking Status: Never smoker Alcohol use: Reports: none Drug use: Reports: none Physical Exam - General Limitations: no limitations General appearance: alert, in no apparent distress, obese, other - Head Head exam: atraumatic, normocephalic - Eye Eye exam: Present: normal appearance - ENT ENT exam: normal exam, normal oropharynx - Chest Chest inspection: Present: normal inspection, symmetric chest wall rise - Respiratory Respiratory exam: Present: normal lung sounds bilaterally - Cardiovascular Cardiovascular exam: Present: regular rate, normal rhythm - Abdominal Exam Abdominal exam: Present: soft, Non-Tender, normal bowel sounds, other (Very obese abdomen) - Extremities Exam Extremities exam: Present: other (Significant lymphedema of the lower extremities bilaterally) - Neurological Exam Neurological exam: Present: alert, oriented X3 - Psychiatric Psychiatric exam: Present: normal affect, normal mood - Skin Skin exam: Present: warm, dry, intact Course Vital Signs Temperature 98.3 F 08/22/17 19:59 Pulse Rate 69 08/22/17 19:59 Respiratory Rate 15 08/22/17 19:59 Blood Pressure 136/69 08/22/17 19:59 O2 Sat by Pulse Oximetry 92 08/22/17 19:59 Temperature 98.3 F 08/22/17 19:59 Pulse Rate 71 08/22/17 20:45 Respiratory Rate 18 08/22/17 20:45 Blood Pressure 128/68 08/22/17 20:45 O2 Sat by Pulse Oximetry 97 08/22/17 20:45 Oxygen Delivery Oxygen Delivery Nasal Cannula Chest Pain - MDM Narrative Medical decision making narrative: neg enzymes ekg ok cxr pending vss chest pain free at this time risk factors admit for obs - Medical Records Medical records reviewed: Yes I reviewed the patient's medical records. - Lab Data Lab results reviewed: Yes I reviewed the patient's lab results. Result diagrams: 08/22/17 20:54 08/22/17 20:54 Lab Results 08/22/17 08/22/17 08/22/17 Range/Units 20:54 20:54 20:54 WBC 4.2 L (4.3-11.1) K/mcL RBC 3.30 L (4.19-5.50) M/mcL Hgb 9.7 L (12.9-16.9) g/dL Hct 31.1 L (37.5-50.1) % MCV 94.2 (83.0-100.0) fL MCH 29.4 (28.0-33.3) pg MCHC 31.2 L (31.6-35.5) g/dL RDW 12.3 (11.5-14.5) % Plt Count 132 L (140-400) K/mcL MPV 10.2 (9.4-12.4) fL Immature Gran % 0.2 (0-4) % Seg Neutrophils % 84.0 % Lymphocytes % 7.6 % Monocytes % 6.1 % Eosinophils % 2.1 % Basophils % 0.0 % Neutrophils # 3.6 (1.6-8.9) K/mcL Lymphocytes # 0.3 L (0.6-4.6) K/mcL Monocytes # 0.3 (0.0-1.3) K/mcL Eosinophils # 0.1 (0.0-0.6) K/mcL Basophils # 0.0 (0.0-0.2) K/mcL PT 12.2 H (9.4-12.1) Seconds INR 1.1 APTT 31.7 (26.0-36.0) Seconds Sodium 136 (136-145) mEq/L Potassium 3.1 L (3.5-5.1) mEq/L Chloride 94 L (98-107) mEq/L Carbon Dioxide 36 H (23-29) mEq/L BUN 15 (8-23) mg/dL Creatinine 1.04 (0.70-1.30) mg/dL Est GFR ( Amer) > 60 (> 60) Est GFR (Non-Af Amer) > 60 (> 60) BUN/Creatinine Ratio 14 (6-26) Glucose 122 H (70-105) mg/dL Calculated Osmolality 284 (280-300) Calcium 9.0 (8.6-10.3) mg/dL Troponin I < 0.03 (< 0.04) ng/mL - Radiology Data Radiology results reviewed: Yes I reviewed the patient's radiology results. - EKG Data EKG attestation: Yes I reviewed and interpreted this EKG. EKG results narrative: EKG shows a rate of 66. Normal sinus rhythm. Normal axis. ME interval 154. QRS 114. QTC 442. There is some artifact present. No significant changes in morphology from previous EKG.
[2017-08-22 21:24] LABS: Eosinophils # 0.1 K/mcL (0.0-0.6); Eosinophils % 2.1 %; Hematocrit 31.1 % (37.5-50.1); Hemoglobin 9.7 g/dL (12.9-16.9); Immature Granulocytes % 0.2 % (0-4); Lymphocytes # 0.3 K/mcL (0.6-4.6); Lymphocytes % 7.6 %; Mean Corpuscular HGB Conc 31.2 g/dL (31.6-35.5); Mean Corpuscular Hemoglobin 29.4 pg (28.0-33.3); Mean Corpuscular Volume 94.2 fL (83.0-100.0); Mean Platelet Volume 10.2 fL (9.4-12.4); Monocytes # 0.3 K/mcL (0.0-1.3); Monocytes % 6.1 %; Neutrophils # 3.6 K/mcL (1.6-8.9); Platelet Count 132 K/mcL (140-400); Red Cell Distribution Width 12.3 % (11.5-14.5)
[2017-08-22 21:34] LABS: INR 1.1; Prothrombin Time 12.2 Seconds (9.4-12.1)
[2017-08-22 21:37] LABS: Activated Partial Thrombo Time 31.7 Seconds (26.0-36.0)
[2017-08-22 21:45] LABS: BUN/Creatinine Ratio 14 (6-26); Blood Urea Nitrogen 15 mg/dL (8-23); Carbon Dioxide 36 mEq/L (23-29); Chloride 94 mEq/L (98-107); Glucose 122 mg/dL (70-105); Osmolality,Calculated 284 (280-300); Potassium 3.1 mEq/L (3.5-5.1); Sodium 136 mEq/L (136-145); Troponin I < 0.03 ng/mL (< 0.04); eGFR For African Americans > 60 (> 60); eGFR For Non-African Americans > 60 (> 60)
[2017-08-22] MEDS ORDERED: GI Cocktail 40 ML EACH PO ONE (22:13)
[2017-08-22] MEDS ORDERED: Levofloxacin 750 MG/150 ML 750 MG/150 ML BAG IVPB ONE (22:42)
[2017-08-23] MEDS ORDERED: Naloxone 0.4 MG/ML INJ IVP PRN (00:46)
[2017-08-23] MEDS ORDERED: Ipratropium/Albuterol Neb 3 ML IH PRN (00:52)
[2017-08-23] MEDS: Ondansetron 4 MG/2 ML VIAL IVP PRN ×2 (01:31→12:54)
[2017-08-23] MEDS: 0.9 % Sodium Chloride 1,000 ML IVC SCH ×2 (02:15→17:47)
[2017-08-23] MEDS ORDERED: *HR* Promethazine 25 MG/ML VIAL IVP ONE (02:29)
[2017-08-23] MEDS ORDERED: Potassium Chloride 40 MEQ, Lidocaine 1% 2 ML in D5% in Water 500 ML IVPB ONE (02:30)
[2017-08-23] MEDS: Ipratropium/Albuterol Neb 3 ML IH SCH ×4 (04:08→22:03)
[2017-08-23 04:20] LABS: Adenovirus F 40/41 PCR Not detected (Not detect); Astrovirus PCR Not detected (Not detect); C.difficile Toxin A/B by PCR Not detected (Not detect); Campylobacter by PCR Not detected (Not detect); Cryptosporidium by PCR Not detected (Not detect); Cyclospora cayetanensis PCR Not detected (Not detect); E. coli O157 by PCR Not detected (Not detect); Entamoeba histolytica PCR Not detected (Not detect); Enteroaggregative E.coli(EAEC) Not detected (Not detect); Enteropathogenic E.coli(EPEC) Not detected (Not detect); Enterotoxigenic E.coli (ETEC) Not detected (Not detect); Giardia lamblia PCR Not detected (Not detect); Norovirus GI/GII PCR ***DETECTED*** (Not detect); Plesiomonas shigelloides PCR Not detected (Not detect); Rotavirus A PCR Not detected (Not detect); Salmonella PCR Not detected (Not detect); Sapovirus PCR Not detected (Not detect); Shig/EnteroinvasiveE coli EIEC Not detected (Not detect); Shigalike tox-prod E coli STEC Not detected (Not detect); Vibrio PCR Not detected (Not detect); Vibrio cholerae PCR Not detected (Not detect); Yersinia enterocolitica PCR Not detected (Not detect)
[2017-08-23] MEDS ORDERED: *HR* LORazepam 2 MG/ML VIAL IVP PRN ×3 (05:13)
--- NOTE | 2017-08-23 05:16 | Internal Med History&Physical ---
Date of Encounter: 08/23/17 Time of Encounter: 00:35 Assessment and Plan (1) Acute gastroenteritis Current visit: Yes Status: Acute Patient has nausea vomiting and diarrhea for 3-4 weeks. Stool GI panel shows positive for Norovirus, consider viral gastroenteritis. C. difficile negative - Give IV fluid and symptomatic control for nausea and diarrhea (2) Alcoholism Current visit: Yes Status: Acute Patient denies alcohol use. However his old chart reviewed, shows history of alcoholism and alcohol withdrawal. Will place patient on CIWA protocol (3) COPD (chronic obstructive pulmonary disease) Current visit: No Status: Acute No wheezing on examination. Continue home medication and DuoNeb treatment Qualifiers: COPD type: COPD with acute exacerbation Qualified Code(s): J44.1 - Chronic obstructive pulmonary disease with (acute) exacerbation (4) DVT prophylaxis Current visit: No Status: Acute Heparin subcutaneously (5) Diastolic CHF, chronic Current visit: No Status: Chronic Patient has history of diastolic CHF. Chest x-ray suspected edema. After evaluating patient, more favorite pneumonia. Patient may have mild dehydration because of nausea vomiting and diarrhea. Previous Echo shows EF 60-65% - We will continue home medications and closely monitor patient (6) Obstructive sleep apnea Current visit: No Status: Chronic We will place patient on CPAP during night (7) Pneumonia Current visit: No Status: Suspected Patient has a cough and increased shortness of breath. CXR suspect pneumonia. Highly suspect aspiration pneumonia considering history of alcoholism and concurrent acute gastroenteritis with nausea and vomiting. - Place patient on Unasyn 3 g IV every 6 hours. - Keep oxygen supportive treatment. Qualifiers: Pneumonia type: aspiration pneumonia Aspiration pneumonia type: unspecified Laterality: bilateral Lung location: unspecified part of lung Qualified Code(s): J69.0 - Pneumonitis due to inhalation of food and vomit (8) Chest pain Current visit: No Status: Resolved Etiology is undetermined. Chest pain has improved after GI cocktail, highly suspect caused by reflex. However, need to rule out ACS. - Continuous cardiac monitoring - Track 3 sets of troponin - Continue patient's home medications omeprazole for GERD. Qualifiers: Chest pain type: other chest pain Qualified Code(s): R07.89 - Other chest pain; R07.8 - Other chest pain (9) Hypokalemia Current visit: No Status: Resolved We will give potassium supplement and follow-up potassium level Internal Medicine - H&P: HPI Chief complaint: Chest pain Admitted From: Home Plans for Post Hospital Care: Home History of present illness: Mr. Dumas is a 62 year old male with history of COPD, alcoholic cirrhosis, obesity, presented to ER for chest pain and shortness of breath. Patient said chest pain started since 3-4 days ago, intermittent, sharp, located on lower mid chest and epigastric area, no radiation. Patient has 4-5 episode chest pain every day, every episode lasts about 4-5 a second, pain is a sharp, 9 out of 10. Patient also complained increase the shortness of breath for several days although he has baseline shortness of breath because of COPD. Patient also has nausea, vomiting, and diarrhea for 3-4 weeks. The vomiting is light brown colored liquid, no blood in it. Patient said he has 4-5 times vomiting every day. The diarrhea is watery. Patient denies a fever. In emergency room , CXR suspect pneumonia or edema. Patient's chest pain has improved after GI cocktail. Patient was admitted for further management. Past Med Surg Social Fam HX - Past Medical History Medical history: CHF, COPD, hypertension, other Psychiatric history: no psych history - Past Surgical History Surgical History: other - Social History Smoking Status: Never smoker Smokeless Tobacco Status: No Alcohol use: none Drug use: none - Family History Mother Living Status: Hx Family Cardiac Disorders: Yes Hx Family Respiratory Disorders: No Hx Family Cancer: No Hx Family GI Disorders: No Hx Family Endocrine Disorder: No Hx Family Neuromuscular Disorders: No Hx Family Neurologic Disorders: No Hx Family HEENT Disorders: No Hx Family Autoimmune Disorders: No Father Living Status: Hx Family Cardiac Disorders: No Hx Family Respiratory Disorders: No Hx Family Cancer: No Hx Family GI Disorders: No Hx Family Endocrine Disorder: No Hx Family Neuromuscular Disorders: No (ALS) Hx Family Neurologic Disorders: No Hx Family HEENT Disorders: No Hx Family Autoimmune Disorders: No Internal Medicine - H&P: Meds RX: Atorvastatin [Lipitor] 40 mg PO HS 07/29/15 [History] RX: Sertraline [Zoloft] 150 mg PO QAM 07/29/15 [History] RX: Albuterol Sulfate [Albuterol Inhaler] 2 puff IH Q4HR PRN 10/25/15 [History] RX: Fluticasone Propionate Nasal [Flonase] 2 spray NS DAILY 7 Days bottle 11/09 [Rx] RX: Budesonide/Formoterol 160/4.5 [Symbicort 160/4.5] 2 puff IH BIDR 01/10/17 [ History] RX: Omeprazole [PriLOSEC] 40 mg PO DAILY 01/10/17 [History] RX: Oxygen 1 each .ROUTE AD 01/10/17 [History] RX: Folic Acid 1 mg PO DAILY tab 01/18/17 [Rx] RX: Furosemide [Lasix] 40 mg PO BIDDIURETIC tab 01/18/17 [Rx] RX: Gabapentin [Neurontin] 800 mg PO TID #30 01/18/17 [Rx] RX: Ipratropium/Albuterol Neb [Duoneb] 3 ml IH [id number] inh 01/18/17 [Rx] RX: Metoprolol XL (24 HR) Succ [Toprol Xl] 50 mg PO DAILY 01/18/17 [Rx] RX: Vitamin B Complex/Vit C/Vit E [Stresstab] 1 each PO DAILY tab 01/18/17 [Rx] RX: Nitroglycerin [Nitrostat] 0.4 mg SL Q5M PRN 01/20/17 [History] RX: HYDROcodone/Acet 7.5/325 mg [[place] 7.5-325 mg] 1 tab PO Q8H PRN #15 [Rx] Spironolactone [Aldactone] 50 mg PO DAILY #30 tablet 01/28/17 [Rx] 3 Allergy/AdvReac Type Severity Reaction Status Date / Time azithromycin [From Zithromax] Allergy Rash Verified 01/10/17 13:39 All Systems PM: A 10-system review of systems was performed and is negative for pertinent findings except as documented above in the HPI. - Constitutional Vitals: Temp Pulse Resp BP Pulse Ox 98 F 67 16 118/60 93 08/23/17 01:32 08/23/17 01:32 08/23/17 01:32 08/23/17 01:32 08/23/17 01:32 General appearance: Present: mild distress, A&O X 3, morbidly obese, answers questions appropriately - Head Head exam: Present: atraumatic, normocephalic - Eye Eye exam: Present: PERRL, conjuntiva pink, sclera anicteric Pupils: Present: PERRL - Neck Neck exam general surgery: Present: supple, trachea midline. Absent: lymphadenopathy - Respiratory Respiratory exam: Present: CTAB. Absent: accessory muscle use, rales, rhonchi, wheezes - Cardiovascular Cardiovascular exam: Present: RRR, +S1, +S2. Absent: diastolic murmur, gallop, rubs, systolic murmur - GI/Abdominal GI/Abdominal exam: Present: normal bowel sounds, soft, no peritoneal signs. Absent: distended, tenderness - Extremities Exam Extremities exam: Present: warm, radial pulses palpable and symmetrical. Absent : calf tenderness, cyanotic, pedal edema - Neurological Exam Neurological exam: Present: CN II-XII intact, oriented X3, no focal deficits. Absent: pronater drift, facial droop, speech deficit - Skin Skin exam: Present: dry, intact Internal Med - H&P Results - Labs CBC & Chem 7: 08/22/17 20:54 08/22/17 20:54 - EKG Data -: EKG Interpreted by Myself EKG shows normal: sinus rhythm Rate: normal
[2017-08-23 05:31] LABS: ABG Base Excess 11 mEq/L (-2 to 3); ABG HCO3 40 mEq/L (21-27); ABG Oxygen Saturation 88 % (95-98); ABG PCO2 79 mmHg (35-45); ABG PH 7.31 pH Units (7.32-7.45); ABG PO2 63 mmHg (85-104); ABG TCO2 42 mEq/L (20-26)
[2017-08-23 06:00] LABS: Basophils % 0.4 %; Eosinophils # 0.1 K/mcL (0.0-0.6); Eosinophils % 2.3 %; Hematocrit 32.6 % (37.5-50.1); Hemoglobin 10.1 g/dL (12.9-16.9); Lymphocytes # 0.4 K/mcL (0.6-4.6); Lymphocytes % 14.4 %; Mean Corpuscular Hemoglobin 29.3 pg (28.0-33.3); Mean Corpuscular Volume 94.5 fL (83.0-100.0); Monocytes # 0.2 K/mcL (0.0-1.3); Monocytes % 8.7 %; Platelet Count 125 K/mcL (140-400); Red Blood Count 3.45 M/mcL (4.19-5.50); Red Cell Distribution Width 12.3 % (11.5-14.5); Segmented Neutrophils % 74.2 %
[2017-08-23 06:19] LABS: BUN/Creatinine Ratio 14 (6-26); Blood Urea Nitrogen 14 mg/dL (8-23); Calcium 8.4 mg/dL (8.6-10.3); Carbon Dioxide 37 mEq/L (23-29); Chloride 95 mEq/L (98-107); Glucose 116 mg/dL (70-105); Magnesium 2.3 mg/dL (1.6-2.6); Osmolality,Calculated 287 (280-300); Potassium 3.3 mEq/L (3.5-5.1); Sodium 138 mEq/L (136-145); eGFR For African Americans > 60 (> 60); eGFR For Non-African Americans > 60 (> 60)
[2017-08-23] MEDS: *HR* Heparin 5,000 UNIT/ML VIAL SQ SCH ×2 (08:48→16:37)
[2017-08-23] MEDS: Metoprolol XL (24 HR) Succ 50 MG TAB.ER.24H PO SCH (08:48)
[2017-08-23] MEDS: Furosemide 40 MG TABLET PO SCH ×2 (08:48→16:36)
[2017-08-23] MEDS: Thiamine (B-1) 100 MG TABLET PO SCH (08:48)
[2017-08-23] MEDS: Folic Acid 1 MG TABLET PO SCH (08:49)
[2017-08-23] MEDS: Ampicillin/Sulbactam 3,000 MG in 0.9 % Sodium Chloride Mini Bag 100 ML IVPB SCH ×3 (08:49→17:47)
[2017-08-23] MEDS: Vitamin B Complex/Vit C/Vit E 1 EACH TABLET PO SCH (08:51)
[2017-08-23] MEDS ORDERED: Levofloxacin 750 MG/150 ML 750 MG/150 ML BAG IVPB SCH (09:00)
[2017-08-23] MEDS ORDERED: Furosemide 40 MG/4 ML VIAL IVP SCH (09:00)
[2017-08-23] MEDS ORDERED: Perflutren Lipid Microsphere 1.3 ML in 0.9 % Sodium Chloride 8.7 ML IVP ONE (10:34)
[2017-08-23] MEDS: Budesonide/Formoterol 160/4.5 MDI IH SCH ×2 (11:28→22:03)
[2017-08-23] MEDS ORDERED: GI Cocktail 40 ML EACH PO ONE (15:32)
--- NOTE | 2017-08-23 15:32 | Event Note ---
Date of Encounter: 08/23/17 Time of Encounter: 15:21 62 year old male with COPD, alcoholic cirrhosis, obesity presented to ED for chest pain and shortness of breath for 3 days. He also complained of stomach pain with diarrhea. Patient has known history of GERD. In ED chest x-ray showed pneumonia vs edema. Stool study was positive for Norovirus. He had relief of symptoms with GI cocktail. He had negative troponin x3. He had echocardiogram done showing severe pulmonary hypertension. He currently feeling better. VS: reviewed Physical exam: Gen: NAD, AAOx3 CVS: RRR Lung: CTAB Abd: soft, nt/nd Ext: no edema Thorax: chest pain is reproducible. Labs: Reviewed A/P: 1. Acute gastroenteritis - continue supportive care 2. Alcoholism - CIWA scoring. 3. COPD - Continue Duo nebs and home medications. No wheezing on exam and so no steroids are given. 4. Pneumonia - continue Unasyn, suspect aspiration pneumonia 5. Chest pain - negative troponin, + reproducible chest pain and also alleviated with GI cocktail. Possible GERD vs musculoskelatal 6. SHALINI - agrees to CPAP tonight 7. Hypokalemia secondary to diarrhea. Repace potassium as needed.
[2017-08-23] MEDS: *HR* HYDROcodone/Acet 7.5/325 mg TABLET PO PRN (16:36)
[2017-08-24] MEDS: Ampicillin/Sulbactam 3,000 MG in 0.9 % Sodium Chloride Mini Bag 100 ML IVPB SCH ×4 (00:54→16:33)
[2017-08-24] MEDS: *HR* Heparin 5,000 UNIT/ML VIAL SQ SCH ×3 (00:55→16:33)
[2017-08-24] MEDS: *HR* HYDROcodone/Acet 7.5/325 mg TABLET PO PRN ×3 (00:56→17:51)
[2017-08-24] MEDS: Ipratropium/Albuterol Neb 3 ML IH SCH ×4 (03:45→22:14)
[2017-08-24 04:43] LABS: Alanine Aminotransferase 6 Units/L (7-52); Albumin 3.3 g/dL (3.5-5.7); Albumin/Globulin Ratio 1.2 (1.1-2.2); Alkaline Phosphatase 79 Units/L (34-104); Aspartate Amino Transferase 13 Units/L (13-39); BUN/Creatinine Ratio 12 (6-26); Basophils % 0.4 %; Bilirubin,Total 0.4 mg/dL (0.3-1.0); Blood Urea Nitrogen 13 mg/dL (8-23); Calcium 8.2 mg/dL (8.6-10.3); Carbon Dioxide 36 mEq/L (23-29); Chloride 97 mEq/L (98-107); Eosinophils # 0.1 K/mcL (0.0-0.6); Eosinophils % 5.7 %; Globulin 2.8 g/dL (2.4-3.5); Glucose 98 mg/dL (70-105); Hematocrit 29.9 % (37.5-50.1); Hemoglobin 9.1 g/dL (12.9-16.9); Immature Granulocytes % 0.4 % (0-4); Lymphocytes # 0.7 K/mcL (0.6-4.6); Lymphocytes % 29.3 %; Mean Corpuscular HGB Conc 30.4 g/dL (31.6-35.5); Mean Corpuscular Hemoglobin 29.2 pg (28.0-33.3); Mean Corpuscular Volume 95.8 fL (83.0-100.0); Mean Platelet Volume 10.5 fL (9.4-12.4); Monocytes # 0.4 K/mcL (0.0-1.3); Neutrophils # 1.1 K/mcL (1.6-8.9); Osmolality,Calculated 284 (280-300); Platelet Count 108 K/mcL (140-400); Potassium 3.1 mEq/L (3.5-5.1); Red Blood Count 3.12 M/mcL (4.19-5.50); Red Cell Distribution Width 12.4 % (11.5-14.5); Segmented Neutrophils % 47.2 %; Sodium 137 mEq/L (136-145); Total Protein 6.1 g/dL (6.4-8.9); eGFR For African Americans > 60 (> 60); eGFR For Non-African Americans > 60 (> 60)
[2017-08-24] MEDS: Thiamine (B-1) 100 MG TABLET PO SCH (09:00)
[2017-08-24] MEDS: Furosemide 40 MG TABLET PO SCH ×2 (09:00→16:33)
[2017-08-24] MEDS: Folic Acid 1 MG TABLET PO SCH (09:00)
[2017-08-24] MEDS: Metoprolol XL (24 HR) Succ 50 MG TAB.ER.24H PO SCH (09:00)
[2017-08-24] MEDS: Vitamin B Complex/Vit C/Vit E 1 EACH TABLET PO SCH (09:00)
[2017-08-24] MEDS: Budesonide/Formoterol 160/4.5 MDI IH SCH ×2 (10:34→22:13)
[2017-08-24] MEDS: Fluticasone Propionate Nasal 50 MCG/SPRAY BOTTLE NS SCH (12:00)
--- NOTE | 2017-08-24 16:32 | Internal Med Progress Note ---
Date of Encounter: 08/24/17 Time of Encounter: 16:32 - Subjective Interval history: Acute gastroenteritis - Rotovirus positive - continue supportive care - contact precautions - IVFs Alcoholism: - CIWA protocol. COPD -Continue bronchodilators. Pneumonia -Suspect aspiration pneumonia -Continue Unasyn Neutropenia: -No fever ->1000 ANC -Continue to trend Chest pain -Negative troponin -Relieved wth GI cocktail -PPI SHALINI -CPAP at tonight Hypokalemia -Secondary to diarrhea. -Repace potassium as needed. - Constitutional Vitals: Temp Pulse Resp BP Pulse Ox 97.5 F L 51 16 106/58 95 08/24/17 14:57 08/24/17 06:51 08/24/17 14:57 08/24/17 14:57 08/24/17 14:57 General appearance: Present: A&O X 3, morbidly obese, pleasant, answers questions appropriately - Head Head exam: Present: atraumatic, normocephalic - Eye Eye exam: Present: EOMI, PERRL, conjuntiva pink, sclera anicteric Pupils: Present: PERRL - Neck Neck exam general surgery: Present: supple, trachea midline. Absent: lymphadenopathy, nuchal rigidity - Respiratory Respiratory exam: Present: CTAB. Absent: accessory muscle use, rales, rhonchi, wheezes - Cardiovascular Cardiovascular exam: Present: RRR, +S1, +S2. Absent: diastolic murmur, gallop, rubs, systolic murmur - GI/Abdominal GI/Abdominal exam: Present: normal bowel sounds, soft, no peritoneal signs. Absent: distended, tenderness - Extremities Exam Extremities exam: Present: warm, radial pulses palpable and symmetrical. Absent : calf tenderness, cyanotic, pedal edema - Neurological Exam Neurological exam: Present: CN II-XII intact, oriented X3, no focal deficits. Absent: pronater drift, facial droop, speech deficit - Psychiatric Psychiatric exam: Present: normal affect, normal mood - Skin Skin exam: Present: dry, intact Internal Medicine: Result - Labs CBC & Chem 7: 08/24/17 03:51 08/24/17 03:51 Labs: Short CBC 08/24/17 Range/Units 03:51 WBC 2.3 L (4.3-11.1) K/mcL Hgb 9.1 L (12.9-16.9) g/dL Hct 29.9 L (37.5-50.1) % Plt Count 108 L (140-400) K/mcL Neutrophils # 1.1 L (1.6-8.9) K/mcL BMP 08/24/17 03:51 Sodium 137 Potassium 3.1 L Chloride 97 L Carbon Dioxide 36 H BUN 13 Creatinine 1.09 Glucose 98 Calcium 8.2 L Liver Function 08/24/17 Range/Units 03:51 Total Bilirubin 0.4 (0.3-1.0) mg/dL AST 13 (13-39) Units/L ALT 6 L (7-52) Units/L Alkaline Phosphatase 79 (34-104) Units/L Albumin 3.3 L (3.5-5.7) g/dL - ABG Interpretation ABG results: ABG ABG pH 7.31 pH Units (7.32-7.45) L 08/23/17 05:27 ABG pCO2 79 mmHg (35-45) H* 08/23/17 05:27 ABG pO2 63 mmHg (85-104) L 08/23/17 05:27 ABG O2 Saturation 88 % (95-98) L 08/23/17 05:27 PT/INR, D-dimer PT 12.2 Seconds (9.4-12.1) H 08/22/17 20:54 - VTE Documentation of Mechanical Device: Graduated compression elastic hosiery Consult Discharge Plan - Plan Referrals: NONE,PCP [Primary Care Provider] -
--- NOTE | 2017-08-24 18:02 | Electrocardiograph Report ---
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
[2017-08-25] MEDS: Ampicillin/Sulbactam 3,000 MG in 0.9 % Sodium Chloride Mini Bag 100 ML IVPB SCH ×5 (00:02→23:14)
[2017-08-25] MEDS: *HR* HYDROcodone/Acet 7.5/325 mg TABLET PO PRN ×4 (00:02→23:13)
[2017-08-25] MEDS: Ipratropium/Albuterol Neb 3 ML IH SCH ×4 (03:46→22:15)
[2017-08-25] MEDS: Ondansetron 4 MG/2 ML VIAL IVP PRN (05:07)
[2017-08-25] MEDS: Vitamin B Complex/Vit C/Vit E 1 EACH TABLET PO SCH (09:02)
[2017-08-25] MEDS: Thiamine (B-1) 100 MG TABLET PO SCH (09:02)
[2017-08-25] MEDS: Folic Acid 1 MG TABLET PO SCH (09:03)
[2017-08-25] MEDS: *HR* Heparin 5,000 UNIT/ML VIAL SQ SCH ×4 (09:03→23:14)
[2017-08-25] MEDS: Metoprolol XL (24 HR) Succ 50 MG TAB.ER.24H PO SCH (09:03)
[2017-08-25] MEDS: Furosemide 40 MG TABLET PO SCH ×2 (09:03→15:48)
[2017-08-25] MEDS: Fluticasone Propionate Nasal 50 MCG/SPRAY BOTTLE NS SCH (09:08)
[2017-08-25] MEDS: Budesonide/Formoterol 160/4.5 MDI IH SCH ×2 (10:37→22:15)
[2017-08-25 14:55] LABS: Basophils % 0.3 %; Eosinophils # 0.1 K/mcL (0.0-0.6); Eosinophils % 4.3 %; Hematocrit 32.8 % (37.5-50.1); Hemoglobin 9.8 g/dL (12.9-16.9); Immature Granulocytes % 0.3 % (0-4); Lymphocytes # 0.9 K/mcL (0.6-4.6); Lymphocytes % 28.7 %; Mean Corpuscular HGB Conc 29.9 g/dL (31.6-35.5); Mean Platelet Volume 10.2 fL (9.4-12.4); Monocytes # 0.4 K/mcL (0.0-1.3); Monocytes % 13.3 %; Neutrophils # 1.7 K/mcL (1.6-8.9); Nucleated Red Blood Cells 0.6 /100 WBC (0); Platelet Count 121 K/mcL (140-400); Red Blood Count 3.38 M/mcL (4.19-5.50); Red Cell Distribution Width 12.5 % (11.5-14.5); Segmented Neutrophils % 53.1 %
[2017-08-25 15:13] LABS: BUN/Creatinine Ratio 10 (6-26); Blood Urea Nitrogen 11 mg/dL (8-23); Calcium 8.4 mg/dL (8.6-10.3); Carbon Dioxide 37 mEq/L (23-29); Chloride 97 mEq/L (98-107); Glucose 97 mg/dL (70-105); Osmolality,Calculated 285 (280-300); Potassium 3.6 mEq/L (3.5-5.1); Sodium 138 mEq/L (136-145); eGFR For African Americans > 60 (> 60); eGFR For Non-African Americans > 60 (> 60)
--- NOTE | 2017-08-25 16:51 | Internal Med Progress Note ---
Date of Encounter: 08/25/17 Time of Encounter: 16:50 - Subjective Interval history: Acute gastroenteritis - Rotovirus positive - continue supportive care - contact precautions - IVFs - No diarrhea in 48 hrs - Possible d/c to home in next 24 to 48 hrs History of alcoholism: - CIWA protocol can be d/c'd COPD -Continue bronchodilators. Pneumonia -Suspect aspiration pneumonia -Change Unasyn to Augmentin tomorrow -Clinically improved Neutropenia: -No fever ->1000 ANC yesterday but greatly improved today -Continue to trend Chest pain (noncardiac) -Negative troponin -Relieved wth GI cocktail and likely related to dyspepsia -PPI SHALINI -CPAP at tonight Hypokalemia -Secondary to diarrhea. -Repace potassium as needed. - Constitutional Vitals: Temp Pulse Resp BP Pulse Ox 97.7 F 52 16 103/58 97 08/25/17 14:53 08/25/17 14:53 08/25/17 15:56 08/25/17 14:53 08/25/17 15:56 General appearance: Present: A&O X 3, morbidly obese, pleasant, answers questions appropriately - Head Head exam: Present: atraumatic, normocephalic - Eye Eye exam: Present: PERRL, conjuntiva pink, sclera anicteric Pupils: Present: PERRL - Neck Neck exam general surgery: Present: supple, trachea midline. Absent: lymphadenopathy - Respiratory Respiratory exam: Present: CTAB. Absent: accessory muscle use, rales, rhonchi, wheezes - Cardiovascular Cardiovascular exam: Present: RRR, +S1, +S2. Absent: diastolic murmur, gallop, rubs, systolic murmur - GI/Abdominal GI/Abdominal exam: Present: normal bowel sounds, soft, no peritoneal signs. Absent: distended, guarding, tenderness - Extremities Exam Extremities exam: Present: warm, radial pulses palpable and symmetrical. Absent : calf tenderness, cyanotic, pedal edema - Neurological Exam Neurological exam: Present: CN II-XII intact, oriented X3, no focal deficits. Absent: pronater drift, facial droop, speech deficit - Psychiatric Psychiatric exam: Present: normal affect, normal mood - Skin Skin exam: Present: dry, intact Internal Medicine: Result - Labs CBC & Chem 7: 08/25/17 14:40 08/25/17 14:40 Labs: Short CBC 03/07/18 Range/Units 14:40 WBC 3.2 L (4.3-11.1) K/mcL Hgb 9.8 L (12.9-16.9) g/dL Hct 32.8 L (37.5-50.1) % Plt Count 121 L (140-400) K/mcL Neutrophils # 1.7 (1.6-8.9) K/mcL BMP 08/25/17 14:40 Sodium 138 Potassium 3.6 Chloride 97 L Carbon Dioxide 37 H BUN 11 Creatinine 1.10 Glucose 97 Calcium 8.4 L - ABG Interpretation ABG results: ABG ABG pH 7.31 pH Units (7.32-7.45) L 08/23/17 05:27 ABG pCO2 79 mmHg (35-45) H* 08/23/17 05:27 ABG pO2 63 mmHg (85-104) L 08/23/17 05:27 ABG O2 Saturation 88 % (95-98) L 08/23/17 05:27 PT/INR, D-dimer PT 12.2 Seconds (9.4-12.1) H 08/22/17 20:54 - VTE Documentation of Mechanical Device: Graduated compression elastic hosiery Consult Discharge Plan - Plan Referrals: NONE,PCP [Primary Care Provider] -
[2017-08-26 01:52] LABS: Basophils % 0.3 %; Eosinophils # 0.2 K/mcL (0.0-0.6); Eosinophils % 6.4 %; Hemoglobin 9.3 g/dL (12.9-16.9); Lymphocytes # 1.1 K/mcL (0.6-4.6); Lymphocytes % 36.7 %; Mean Corpuscular Hemoglobin 29.1 pg (28.0-33.3); Mean Corpuscular Volume 96.9 fL (83.0-100.0); Mean Platelet Volume 10.1 fL (9.4-12.4); Monocytes # 0.3 K/mcL (0.0-1.3); Monocytes % 10.9 %; Neutrophils # 1.4 K/mcL (1.6-8.9); Platelet Count 113 K/mcL (140-400); Red Cell Distribution Width 12.4 % (11.5-14.5); Segmented Neutrophils % 45.7 %
[2017-08-26 02:12] LABS: Reactive Lymphocytes Present (Not Present)
[2017-08-26 02:13] LABS: Platelet Estimate Slight Decrease (Normal)
[2017-08-26 02:15] LABS: BUN/Creatinine Ratio 10 (6-26); Blood Urea Nitrogen 11 mg/dL (8-23); Calcium 8.3 mg/dL (8.6-10.3); Carbon Dioxide 39 mEq/L (23-29); Chloride 98 mEq/L (98-107); Glucose 111 mg/dL (70-105); Osmolality,Calculated 290 (280-300); Sodium 140 mEq/L (136-145); eGFR For African Americans > 60 (> 60); eGFR For Non-African Americans > 60 (> 60)
[2017-08-26] MEDS: Ipratropium/Albuterol Neb 3 ML IH SCH ×2 (03:44→11:00)
[2017-08-26] MEDS: Ampicillin/Sulbactam 3,000 MG in 0.9 % Sodium Chloride Mini Bag 100 ML IVPB SCH ×2 (05:13→11:26)
[2017-08-26] MEDS: *HR* HYDROcodone/Acet 7.5/325 mg TABLET PO PRN (05:21)
[2017-08-26] MEDS: *HR* Heparin 5,000 UNIT/ML VIAL SQ SCH (07:54)
[2017-08-26] MEDS: Vitamin B Complex/Vit C/Vit E 1 EACH TABLET PO SCH (07:54)
[2017-08-26] MEDS: Furosemide 40 MG TABLET PO SCH (07:54)
[2017-08-26] MEDS: Thiamine (B-1) 100 MG TABLET PO SCH (07:54)
[2017-08-26] MEDS: Folic Acid 1 MG TABLET PO SCH (07:54)
[2017-08-26] MEDS: Metoprolol XL (24 HR) Succ 50 MG TAB.ER.24H PO SCH (07:54)
[2017-08-26] MEDS: Fluticasone Propionate Nasal 50 MCG/SPRAY BOTTLE NS SCH (07:55)
[2017-08-26 10:27] LABS: BUN/Creatinine Ratio 10 (6-26); Blood Urea Nitrogen 11 mg/dL (8-23); Calcium 8.5 mg/dL (8.6-10.3); Carbon Dioxide 39 mEq/L (23-29); Chloride 96 mEq/L (98-107); Glucose 89 mg/dL (70-105); Osmolality,Calculated 289 (280-300); Potassium 3.2 mEq/L (3.5-5.1); Sodium 140 mEq/L (136-145); eGFR For African Americans > 60 (> 60); eGFR For Non-African Americans > 60 (> 60)
[2017-08-26 10:52] VITALS: BP 112/65
[2017-08-26] MEDS: Budesonide/Formoterol 160/4.5 MDI IH SCH (11:00)
--- NOTE | 2017-08-26 14:19 | Discharge Summary ---
Date of Encounter: 08/26/17 Time of Encounter: 14:19 Hospital course: Mr. Dumas is a 62 year old male with history of COPD, alcoholic cirrhosis, obesity, presented to ER for chest pain and shortness of breath. His chest pain started s3-4 days ago, intermittent, sharp, located on lower mid chest and epigastric area, no radiation. He reported 4-5 episode chest pain every day, every episode lasts about 4-5 a second, pain is a sharp, 9 out of 10. He had increased shortness of breath for several days greater than his baseline shortness of breath associated with COPD and SHALINI. He also c/o nausea, vomiting , and diarrhea for 3-4 weeks. The vomiting is watery, light brown colored liquid, no blood in it and occurring 4-5 times every day. He was afebrile at home and in the ER. In the emergency room a CXR was done which was suspicious for pneumonia. His chest pain has improved after a GI cocktail and his troponins were negative. Stool studies were performed and showed he had Rotovirus. He received supportive care for his gastroentritis and was treated with Unasyn for a suspected aspiration PNA. Bronchodilators were continued for his COPD and he improved well enough to be discharged to home. He was noted to be mildly pancytopenic and briefly neutropenic which was attributed to sepsis and his history of ETOH abuse. The CIWA protocol was started but he never showed signs of withdrawal. He was discharged to home breathing comfortably and hemodynamically stable. Discharge discussed with: patient, nurse, case management Time spent discussing smoking cessation with patient: more than 10 minutes - Time Spent with Patient Total time spent providing and/or coordinating discharge services: Greater than 30 minutes - Discharge Medications Prescriptions: Ondansetron ODT [Zofran ODT] 4 mg SL Q6HR 5 Days #20 tab.rapdis Amoxicillin/Clavulanate [Augmentin] 875 mg PO BIDWM 7 Days #14 tablet Folic Acid 1 mg PO DAILY 30 Days #30 tablet Thiamine (B-1) [Vitamin B-1] 100 mg PO DAILY 30 Days #30 tablet Home Medications: Atorvastatin [Lipitor] 40 mg PO HS 07/29/15 [History] Sertraline [Zoloft] 150 mg PO QAM 07/29/15 [History] Albuterol Sulfate [Albuterol Inhaler] 2 puff IH Q4HR PRN 10/25/15 [History] Fluticasone Propionate Nasal [Flonase] 2 spray NS DAILY 7 Days bottle 11/10/15 [Rx] Budesonide/Formoterol 160/4.5 [Symbicort 160/4.5] 2 puff IH BIDR 01/10/17 [ History] Omeprazole [PriLOSEC] 40 mg PO DAILY 01/10/17 [History] Oxygen 1 each .ROUTE AD 01/10/17 [History] Folic Acid 1 mg PO DAILY tab 01/18/17 [Rx] Furosemide [Lasix] 40 mg PO BIDDIURETIC tab 01/18/17 [Rx] Ipratropium/Albuterol Neb [Duoneb] 3 ml IH [id number] inh 01/18/17 [Rx] Metoprolol XL (24 HR) Succ [Toprol Xl] 50 mg PO DAILY 01/18/17 [Rx] Vitamin B Complex/Vit C/Vit E [Stresstab] 1 each PO DAILY tab 01/18/17 [Rx] Nitroglycerin [Nitrostat] 0.4 mg SL Q5M PRN 01/20/17 [History] HYDROcodone/Acet 7.5/325 mg [[place] 7.5-325 mg] 1 tab PO Q8H PRN #15 01/28/17 [Rx ] Spironolactone [Aldactone] 50 mg PO DAILY #30 tablet 01/28/17 [Rx] Gabapentin [Neurontin] 1,200 mg PO TID 08/24/17 [History] Amoxicillin/Clavulanate [Augmentin] 875 mg PO BIDWM 7 Days #14 tablet 08/26/17 [ Rx] Folic Acid 1 mg PO DAILY 30 Days #30 tablet 08/26/17 [Rx] Ondansetron ODT [Zofran ODT] 4 mg SL Q6HR 5 Days #20 tab.rapdis 08/26/17 [Rx] Thiamine (B-1) [Vitamin B-1] 100 mg PO DAILY 30 Days #30 tablet 08/26/17 [Rx] Allergies/Adverse Reactions: 3 Allergy/AdvReac Type Severity Reaction Status Date / Time azithromycin [From Zithromax] Allergy Rash Verified 08/23/17 09:52 Date of admission: 08/23/17 01:29 Primary care physician: PCP NONE Consults: 08/23/17 05:13 Consult to Brick Carrier [CONS] Routine Reason for SW Consult: Alcoholism - Constitutional Vitals: Temp Pulse Resp BP Pulse Ox 97.3 F L 53 16 112/65 96 08/26/17 10:44 08/26/17 10:44 08/26/17 10:44 08/26/17 10:44 08/26/17 10:44 General appearance: Present: A&O X 3, morbidly obese, pleasant, answers questions appropriately - Head Head exam: Present: atraumatic, normocephalic - Eye Eye exam: Present: PERRL, conjuntiva pink, sclera anicteric Pupils: Present: PERRL - Neck Neck exam general surgery: Present: supple, trachea midline. Absent: lymphadenopathy, tenderness, thyromegaly - Respiratory Respiratory exam: Present: CTAB. Absent: accessory muscle use, rales, rhonchi, wheezes - Cardiovascular Cardiovascular exam: Present: RRR, +S1, +S2. Absent: diastolic murmur, gallop, rubs, systolic murmur - GI/Abdominal GI/Abdominal exam: Present: normal bowel sounds, soft, no peritoneal signs. Absent: distended, tenderness - Extremities Exam Extremities exam: Present: warm, radial pulses palpable and symmetrical. Absent : calf tenderness, cyanotic, pedal edema - Neurological Exam Neurological exam: Present: CN II-XII intact, oriented X3, no focal deficits. Absent: pronater drift, facial droop, speech deficit - Psychiatric Psychiatric exam: Present: normal affect, normal mood - Skin Skin exam: Present: dry, intact - Patient Status Disposition: Home Health Service Condition: Fair - Discharge Instructions Instructions: Gastroenteritis (DC) Follow Up With: NONE,PCP [Primary Care Provider] - - VTE Documentation of Mechanical Device: Graduated compression elastic hosiery
[2017-08-26] MEDS ORDERED: Gabapentin 400 MG CAPSULE PO SCH (15:00)
== END 2017-08-26 16:02 | disposition home health service (06) | DRG 720 ==
LOC: EMEROO 19:55 → 2NENU 19:55
PROVIDERS: ADMIT Internal Medicine; ATTEND Student in an Organized Health Care Education/Training Program

== ENCOUNTER 2018-01-07 14:40 | Inpatient (IN) ==
[2018-01-07] MEDS ORDERED: Ipratropium/Albuterol Neb 3 ML IH ONE (14:43)
[2018-01-07] MEDS ORDERED: predniSONE 20 MG TABLET PO ONE (14:45)
--- NOTE | 2018-01-07 14:47 | Emergency Department Note ---
Disposition Clinical Impression: Acute exacerbation of chronic obstructive airways disease CHF (congestive heart failure) Qualifiers: Heart failure type: systolic Heart failure chronicity: acute on chronic Qualified Code(s): I50.23 - Acute on chronic systolic (congestive) heart failure Disposition: Admitted As Inpatient Condition: Fair Referrals: NONE,PCP [Primary Care Provider] - Forms: ED Satisfaction Letter Time of Disposition: 16:15 SOB HPI - General Chief Complaint: ED Shortness of Breath/Dyspnea Stated Complaint: AJITH Time Seen by Provider: 01/07/18 14:43 Source: patient, EMS Mode of arrival: EMS Limitations: no limitations Nursing Notes Reviewed: Yes Vital Signs Reviewed: Yes - History of Present Illness 62-year-old male with history of hypertension, hyperlipidemia, COPD, arrives to the emergency department with complaint of shortness of breath. The patient states this started just a few days ago is progressively gotten worse. The patient states that he also feels as though his "sodium is high" in which she has an extensive history of hypernatremia. The patient was noted to be given a DuoNeb in route due to hypoxia and poor air movement on auscultation per EMS. The patient arrives to the emergency department in mild to moderate respiratory distress. He is using accessory muscles on nonrebreather mask. He is able to speak in 2-3 word sentences. The patient has extensive bilateral lower extremity swelling that is symmetrical. He denies any worsening of the symptoms. The patient denies any history of PE or DVT. He denies any hemoptysis, recent surgeries or immobilizations. Patient also denies any chest pain associated with the shortness of breath. No sputum change but the patient is concerned he is also expressing pneumonia. - Related Data Home Medications Medication Instructions Recorded Confirmed Atorvastatin [Lipitor] 40 mg PO HS 07/29/15 08/23/17 Sertraline [Zoloft] 150 mg PO QAM 07/29/15 08/23/17 Albuterol Sulfate [Albuterol 2 puff IH Q4HR PRN 10/25/15 08/23/17 Inhaler] Budesonide/Formoterol 160/4.5 2 puff IH BIDR 01/10/17 08/23/17 [Symbicort 160/4.5] Omeprazole [PriLOSEC] 40 mg PO DAILY 01/10/17 08/23/17 Oxygen 1 each .ROUTE AD 01/10/17 08/23/17 Nitroglycerin [Nitrostat] 0.4 mg SL Q5M PRN 01/20/17 08/23/17 Gabapentin [Neurontin] 1,200 mg PO TID 08/24/17 08/24/17 Montelukast [Singulair] 10 mg PO DAILY 01/07/18 01/07/18 Potassium Chloride [K-Tab ER] 20 meq PO DAILY 01/07/18 01/07/18 Ranitidine HCl [Acid Whittling Room Operator] 150 mg PO BID 01/07/18 01/07/18 Triamterene/HCTZ 37.5/25mg 1 each PO DAILY 01/07/18 01/07/18 [Dyazide] Previous Rx's Medication Instructions Recorded Fluticasone Propionate Nasal 2 spray NS DAILY 7 Days bottle 11/10/15 [Flonase] Folic Acid 1 mg PO DAILY tab 01/18/17 Furosemide [Lasix] 40 mg PO BIDDIURETIC tab 01/18/17 Ipratropium/Albuterol Neb [Duoneb] 3 ml IH [id number] inh 01/18/17 Metoprolol XL (24 HR) Succ [Toprol 50 mg PO DAILY 01/18/17 Xl] Vitamin B Complex/Vit C/Vit E 1 each PO DAILY tab 01/18/17 [Stresstab] HYDROcodone/Acet 7.5/325 mg [[place] 1 tab PO Q8H PRN #15 01/28/17 7.5-325 mg] Ondansetron ODT [Zofran ODT] 4 mg SL Q6HR 5 Days #20 tab.rapdis 08/26/17 Thiamine (B-1) [Vitamin B-1] 100 mg PO DAILY 30 Days #30 tablet 08/26/17 Allergies Allergy/AdvReac Type Severity Reaction Status Date / Time azithromycin [From Zithromax] Allergy Rash Verified 08/23/17 09:52 All systems ED: reviewed and negative except as stated. Constitutional: Reports: weakness. Denies: fever, chills ENT ED: Denies: congestion Cardiovascular: Reports: dyspnea on exertion, edema. Denies: chest pain, syncope Respiratory: Reports: cough, dyspnea, wheezes. Denies: hemoptysis, stridor, sputum production Gastrointestinal: Denies: abdominal pain, nausea, vomiting, diarrhea Genitourinary: Denies: urgency, dysuria Musculoskeletal: Denies: back pain, neck pain, arthralgia, myalgia Integumentary: Denies: rash Neurological: Denies: headache Past Medical History - Past Medical History Attestation: Yes The following information was validated with the patient. Source: patient, old records reviewed Medical history: Reports: CHF, COPD, hypertension, other Surgical history: Reports: other Psychiatric history: Reports: no psych history - Social History Smoking Status: Never smoker Smokeless Tobacco Status: No Alcohol use: Reports: none Drug use: Reports: none Physical Exam - General Limitations: no limitations General appearance: alert, in distress (Mild to moderate respiratory) - Head Head exam: atraumatic, normocephalic, normal inspection - Eye Eye exam: Present: normal appearance, PERRL, EOMI - ENT ENT exam: normal exam, normal oropharynx, mucous membranes moist - Neck Neck exam: Present: normal inspection, full ROM, trachea midline - Chest Chest inspection: Present: normal inspection, symmetric chest wall rise - Respiratory Respiratory exam: Present: other (Poor air movement on auscultation. Rales in LLL) - Cardiovascular Cardiovascular exam: Present: regular rate, normal rhythm, normal heart sounds - Abdominal Exam Abdominal exam: Present: soft, Non-Tender. Absent: tenderness, distention, guarding, rebound, rigidity - Extremities Exam Extremities exam: Present: full ROM, pedal edema (2+ pedal bilaterally, chronic venous stasis changes). Absent: tenderness - Neurological Exam Neurological exam: Present: alert, oriented X3 - Skin Skin exam: Present: warm, dry, intact, normal color Course Vital Signs Temperature 98.5 F 01/07/18 14:42 Pulse Rate 71 01/07/18 14:42 Respiratory Rate 22 01/07/18 14:42 Blood Pressure 133/73 01/07/18 14:42 O2 Sat by Pulse Oximetry 100 01/07/18 14:42 Temperature 98.5 F 01/07/18 14:45 Pulse Rate 68 01/07/18 15:45 Respiratory Rate 23 01/07/18 15:45 Blood Pressure 132/46 01/07/18 15:45 O2 Sat by Pulse Oximetry 93 01/07/18 15:45 Oxygen Delivery Oxygen Delivery Nasal Cannula Shortness of Breath/Dyspnea - MDM Narrative Medical decision making narrative: Patient's workup in the emergency department demonstrates findings consistent with COPD. The patient did have some wheezing and poor air movement on auscultation. He improved after receiving duo nebs. He was given some steroids as well. The patient rates afebrile without any sputum production. The patient does have some interstitial lung disease versus pulmonary edema on chest x-ray and was given some nitroglycerin for concern for CHF but this appears to be more associated with COPD. The patient will be admitted to the hospital at this time for further workup and care. Patient was accepted by Dr. Salguero. - Lab Data Lab results reviewed: Yes I reviewed the patient's lab results. Result diagrams: 01/07/18 15:06 01/07/18 15:06 Lab Results 01/07/18 01/07/18 01/07/18 Range/Units 15:06 15:06 15:06 WBC 5.0 (4.3-11.1) K/mcL RBC 3.95 L (4.19-5.50) M/mcL Hgb 11.7 L (12.9-16.9) g/dL Hct 38.2 (37.5-50.1) % MCV 96.7 (83.0-100.0) fL MCH 29.6 (28.0-33.3) pg MCHC 30.6 L (31.6-35.5) g/dL RDW 12.9 (11.5-14.5) % Plt Count 161 (140-400) K/mcL MPV 9.8 (9.4-12.4) fL Immature Gran % 0.2 (0-4) % Seg Neutrophils % 54.1 % Lymphocytes % 29.3 % Monocytes % 9.8 % Eosinophils % 6.2 % Basophils % 0.4 % Neutrophils # 2.7 (1.6-8.9) K/mcL Lymphocytes # 1.5 (0.6-4.6) K/mcL Monocytes # 0.5 (0.0-1.3) K/mcL Eosinophils # 0.3 (0.0-0.6) K/mcL Basophils # 0.0 (0.0-0.2) K/mcL PT 11.7 (9.4-12.1) Seconds INR 1.0 APTT 35.0 (26.0-36.0) Seconds Sodium 141 (136-145) mEq/L Potassium 4.0 (3.5-5.1) mEq/L Chloride 100 (98-107) mEq/L Carbon Dioxide 39 H (23-29) mEq/L BUN 23 (8-23) mg/dL Creatinine 1.19 (0.70-1.30) mg/dL Est GFR ( Amer) > 60 (> 60) Est GFR (Non-Af Amer) > 60 (> 60) BUN/Creatinine Ratio 19 (6-26) Glucose 116 H (70-105) mg/dL Calculated Osmolality 297 (280-300) Lactic Acid (0.5-2.2) mmol/L Calcium 9.3 (8.6-10.3) mg/dL Troponin I < 0.03 (< 0.04) ng/mL B-Natriuretic Peptide (Less than 100) pg/mL 01/07/18 01/07/18 Range/Units 15:06 15:06 WBC (4.3-11.1) K/mcL RBC (4.19-5.50) M/mcL Hgb (12.9-16.9) g/dL Hct (37.5-50.1) % MCV (83.0-100.0) fL MCH (28.0-33.3) pg MCHC (31.6-35.5) g/dL RDW (11.5-14.5) % Plt Count (140-400) K/mcL MPV (9.4-12.4) fL Immature Gran % (0-4) % Seg Neutrophils % % Lymphocytes % % Monocytes % % Eosinophils % % Basophils % % Neutrophils # (1.6-8.9) K/mcL Lymphocytes # (0.6-4.6) K/mcL Monocytes # (0.0-1.3) K/mcL Eosinophils # (0.0-0.6) K/mcL Basophils # (0.0-0.2) K/mcL PT (9.4-12.1) Seconds INR APTT (26.0-36.0) Seconds Sodium (136-145) mEq/L Potassium (3.5-5.1) mEq/L Chloride (98-107) mEq/L Carbon Dioxide (23-29) mEq/L BUN (8-23) mg/dL Creatinine (0.70-1.30) mg/dL Est GFR ( Amer) (> 60) Est GFR (Non-Af Amer) (> 60) BUN/Creatinine Ratio (6-26) Glucose (70-105) mg/dL Calculated Osmolality (280-300) Lactic Acid 1.5 (0.5-2.2) mmol/L Calcium (8.6-10.3) mg/dL Troponin I (< 0.04) ng/mL B-Natriuretic Peptide 90 (Less than 100) pg/mL - Radiology Data Radiology results reviewed: Yes I reviewed the patient's radiology results. Chest X-Ray 01/07/18 14:43 IMPRESSION: Bilateral diffuse interstitial lung infiltrates, not appreciably changed from 08/22/2017. This may be related to underlying interstitial lung disease versus pulmonary edema. Low lung volumes. D/ / Ramone Hernandez MD / Ramone Hernandez MD Interpreting Provider: Ramone Hernandez MD - EKG Data EKG attestation: Yes I reviewed and interpreted this EKG. EKG results narrative: Heart rate 64 beats for minute. Normal sinus rhythm. No ST elevation or ST depression. No acute changes noted.
[2018-01-07 15:26] LABS: Basophils % 0.4 %; Eosinophils # 0.3 K/mcL (0.0-0.6); Eosinophils % 6.2 %; Hematocrit 38.2 % (37.5-50.1); Hemoglobin 11.7 g/dL (12.9-16.9); Immature Granulocytes % 0.2 % (0-4); Lymphocytes # 1.5 K/mcL (0.6-4.6); Lymphocytes % 29.3 %; Mean Corpuscular HGB Conc 30.6 g/dL (31.6-35.5); Mean Corpuscular Hemoglobin 29.6 pg (28.0-33.3); Mean Corpuscular Volume 96.7 fL (83.0-100.0); Mean Platelet Volume 9.8 fL (9.4-12.4); Monocytes # 0.5 K/mcL (0.0-1.3); Monocytes % 9.8 %; Neutrophils # 2.7 K/mcL (1.6-8.9); Platelet Count 161 K/mcL (140-400); Red Blood Count 3.95 M/mcL (4.19-5.50); Red Cell Distribution Width 12.9 % (11.5-14.5); Segmented Neutrophils % 54.1 %
[2018-01-07] MEDS ORDERED: Nitroglycerin 0.4 MG TAB.SUBL SL PRN ×2 (15:34→19:38)
[2018-01-07 15:35] LABS: Prothrombin Time 11.7 Seconds (9.4-12.1)
[2018-01-07 15:46] LABS: Troponin I < 0.03 ng/mL (< 0.04)
[2018-01-07 15:52] LABS: BUN/Creatinine Ratio 19 (6-26); Blood Urea Nitrogen 23 mg/dL (8-23); Calcium 9.3 mg/dL (8.6-10.3); Carbon Dioxide 39 mEq/L (23-29); Chloride 100 mEq/L (98-107); Glucose 116 mg/dL (70-105); Osmolality,Calculated 297 (280-300); Sodium 141 mEq/L (136-145); eGFR For African Americans > 60 (> 60); eGFR For Non-African Americans > 60 (> 60)
[2018-01-07] MEDS ORDERED: *HR* FentaNYL (PF) 100 MCG/2 ML VIAL IVP ONE (17:08)
--- NOTE | 2018-01-07 17:11 | Emergency Department Note ---
Disposition Clinical Impression: Acute exacerbation of chronic obstructive airways disease CHF (congestive heart failure) Qualifiers: Heart failure type: systolic Heart failure chronicity: acute on chronic Qualified Code(s): I50.23 - Acute on chronic systolic (congestive) heart failure Disposition: Admitted As Inpatient Condition: Fair Referrals: NONE,PCP [Primary Care Provider] - Forms: ED Satisfaction Letter SOB HPI - General Chief Complaint: ED Shortness of Breath/Dyspnea Stated Complaint: AJITH Time Seen by Provider: 01/07/18 14:43 Source: patient, EMS Mode of arrival: EMS Limitations: no limitations Nursing Notes Reviewed: Yes Vital Signs Reviewed: Yes - Related Data Home Medications Medication Instructions Recorded Confirmed Atorvastatin [Lipitor] 40 mg PO HS 07/29/15 08/23/17 Sertraline [Zoloft] 150 mg PO QAM 07/29/15 08/23/17 Albuterol Sulfate [Albuterol 2 puff IH Q4HR PRN 10/25/15 08/23/17 Inhaler] Budesonide/Formoterol 160/4.5 2 puff IH BIDR 01/10/17 08/23/17 [Symbicort 160/4.5] Omeprazole [PriLOSEC] 40 mg PO DAILY 01/10/17 08/23/17 Oxygen 1 each .ROUTE AD 01/10/17 08/23/17 Nitroglycerin [Nitrostat] 0.4 mg SL Q5M PRN 01/20/17 08/23/17 Gabapentin [Neurontin] 1,200 mg PO TID 08/24/17 08/24/17 Montelukast [Singulair] 10 mg PO DAILY 01/07/18 01/07/18 Potassium Chloride [K-Tab ER] 20 meq PO DAILY 01/07/18 01/07/18 Ranitidine HCl [Acid Paperhanger Apprentice] 150 mg PO BID 01/07/18 01/07/18 Triamterene/HCTZ 37.5/25mg 1 each PO DAILY 01/07/18 01/07/18 [Dyazide] Previous Rx's Medication Instructions Recorded Fluticasone Propionate Nasal 2 spray NS DAILY 7 Days bottle 11/10/15 [Flonase] Folic Acid 1 mg PO DAILY tab 01/18/17 Furosemide [Lasix] 40 mg PO BIDDIURETIC tab 01/18/17 Ipratropium/Albuterol Neb [Duoneb] 3 ml IH [id number] inh 01/18/17 Metoprolol XL (24 HR) Succ [Toprol 50 mg PO DAILY 01/18/17 Xl] Vitamin B Complex/Vit C/Vit E 1 each PO DAILY tab 01/18/17 [Stresstab] HYDROcodone/Acet 7.5/325 mg [[place] 1 tab PO Q8H PRN #15 01/28/17 7.5-325 mg] Ondansetron ODT [Zofran ODT] 4 mg SL Q6HR 5 Days #20 tab.rapdis 08/26/17 Thiamine (B-1) [Vitamin B-1] 100 mg PO DAILY 30 Days #30 tablet 08/26/17 Allergies Allergy/AdvReac Type Severity Reaction Status Date / Time azithromycin [From Zithromax] Allergy Rash Verified 08/23/17 09:52 Constitutional: Reports: weakness. Denies: fever, chills ENT ED: Denies: congestion Cardiovascular: Reports: dyspnea on exertion, edema. Denies: chest pain, syncope Respiratory: Reports: cough, dyspnea, wheezes. Denies: hemoptysis, stridor, sputum production Gastrointestinal: Denies: abdominal pain, nausea, vomiting, diarrhea Genitourinary: Denies: urgency, dysuria Musculoskeletal: Denies: back pain, neck pain, arthralgia, myalgia Integumentary: Denies: rash Neurological: Denies: headache Past Medical History - Past Medical History Medical history: Reports: CHF, COPD, hypertension, other Surgical history: Reports: other Psychiatric history: Reports: no psych history - Social History Smoking Status: Never smoker Smokeless Tobacco Status: No Alcohol use: Reports: none Drug use: Reports: none Physical Exam - General Limitations: no limitations General appearance: alert, in distress (Mild to moderate respiratory) Course Vital Signs Temperature 98.5 F 01/07/18 14:42 Pulse Rate 71 01/07/18 14:42 Respiratory Rate 22 01/07/18 14:42 Blood Pressure 133/73 01/07/18 14:42 O2 Sat by Pulse Oximetry 100 01/07/18 14:42 Temperature 98.5 F 01/07/18 14:45 Pulse Rate 68 01/07/18 15:45 Respiratory Rate 23 01/07/18 15:45 Blood Pressure 132/46 01/07/18 15:45 O2 Sat by Pulse Oximetry 93 01/07/18 15:45 Oxygen Delivery Oxygen Delivery Nasal Cannula Shortness of Breath/Dyspnea - Lab Data Result diagrams: 01/07/18 15:06 01/07/18 15:06 Lab Results 01/07/18 01/07/18 01/07/18 Range/Units 15:06 15:06 15:06 WBC 5.0 (4.3-11.1) K/mcL RBC 3.95 L (4.19-5.50) M/mcL Hgb 11.7 L (12.9-16.9) g/dL Hct 38.2 (37.5-50.1) % MCV 96.7 (83.0-100.0) fL MCH 29.6 (28.0-33.3) pg MCHC 30.6 L (31.6-35.5) g/dL RDW 12.9 (11.5-14.5) % Plt Count 161 (140-400) K/mcL MPV 9.8 (9.4-12.4) fL Immature Gran % 0.2 (0-4) % Seg Neutrophils % 54.1 % Lymphocytes % 29.3 % Monocytes % 9.8 % Eosinophils % 6.2 % Basophils % 0.4 % Neutrophils # 2.7 (1.6-8.9) K/mcL Lymphocytes # 1.5 (0.6-4.6) K/mcL Monocytes # 0.5 (0.0-1.3) K/mcL Eosinophils # 0.3 (0.0-0.6) K/mcL Basophils # 0.0 (0.0-0.2) K/mcL PT 11.7 (9.4-12.1) Seconds INR 1.0 APTT 35.0 (26.0-36.0) Seconds Sodium 141 (136-145) mEq/L Potassium 4.0 (3.5-5.1) mEq/L Chloride 100 (98-107) mEq/L Carbon Dioxide 39 H (23-29) mEq/L BUN 23 (8-23) mg/dL Creatinine 1.19 (0.70-1.30) mg/dL Est GFR ( Amer) > 60 (> 60) Est GFR (Non-Af Amer) > 60 (> 60) BUN/Creatinine Ratio 19 (6-26) Glucose 116 H (70-105) mg/dL Calculated Osmolality 297 (280-300) Lactic Acid (0.5-2.2) mmol/L Calcium 9.3 (8.6-10.3) mg/dL Troponin I < 0.03 (< 0.04) ng/mL B-Natriuretic Peptide (Less than 100) pg/mL 01/07/18 01/07/18 Range/Units 15:06 15:06 WBC (4.3-11.1) K/mcL RBC (4.19-5.50) M/mcL Hgb (12.9-16.9) g/dL Hct (37.5-50.1) % MCV (83.0-100.0) fL MCH (28.0-33.3) pg MCHC (31.6-35.5) g/dL RDW (11.5-14.5) % Plt Count (140-400) K/mcL MPV (9.4-12.4) fL Immature Gran % (0-4) % Seg Neutrophils % % Lymphocytes % % Monocytes % % Eosinophils % % Basophils % % Neutrophils # (1.6-8.9) K/mcL Lymphocytes # (0.6-4.6) K/mcL Monocytes # (0.0-1.3) K/mcL Eosinophils # (0.0-0.6) K/mcL Basophils # (0.0-0.2) K/mcL PT (9.4-12.1) Seconds INR APTT (26.0-36.0) Seconds Sodium (136-145) mEq/L Potassium (3.5-5.1) mEq/L Chloride (98-107) mEq/L Carbon Dioxide (23-29) mEq/L BUN (8-23) mg/dL Creatinine (0.70-1.30) mg/dL Est GFR ( Amer) (> 60) Est GFR (Non-Af Amer) (> 60) BUN/Creatinine Ratio (6-26) Glucose (70-105) mg/dL Calculated Osmolality (280-300) Lactic Acid 1.5 (0.5-2.2) mmol/L Calcium (8.6-10.3) mg/dL Troponin I (< 0.04) ng/mL B-Natriuretic Peptide 90 (Less than 100) pg/mL Attestation Statement - Attestation Attestation: I, Curt Carmona, examined this patient and my medical decision-making was reviewed with the ROLL BUILDER/PA/Advanced Practice Nurse/Resident Physician. I agree with the documented findings, disposition and treatment plan as described except to the extent set forth below. 62-year-old male presents to the emergency Department with concerns of increasing shortness of breath. Patient states symptoms have worsened over the past week. Patient states he is unable to walk more than 20 sounds without, short of breath. Patient states he never lays flats was unsure if he has orthopnea. Patient denies a productive cough. Denies fever, chills, vomiting. Patient does report increased weakness and fatigue over the past few days as well. Patient has bilateral lower extremity swelling on exam. He also has a history of COPD. Patient states he does have some wheezing however this feels different than his previous COPD exacerbations. Chest x-ray shows diffuse interstitial markings which is not significantly changed from previous x-ray. Possible pulmonary edema. Patient will be admitted to the hospital for further care and evaluation.
--- NOTE | 2018-01-07 20:56 | Internal Med History&Physical ---
Date of Encounter: 01/07/18 Time of Encounter: 20:49 Internal Medicine - H&P: HPI Admitted From: Home Plans for Post Hospital Care: Home History of present illness: Mr. 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 The patient states that over the past few weeks he has been gaining weight with more fluid retention and now over the last few days his breathing has worsened being unable to tolerate mild to moderate exertion. He admits to having chest pain that has been stable over the past few years that is incited with physical activity for which reason he takes sublingual nitroglycerin. He says he has not had the chest pain associated with this shortness of breath at this time. He says he coughs occasionally being more frequently dry and intermittently with clear sputum production. He denies fever and chills. No pleuritic chest pain. He is unable to lay flat and has increasing leg swelling. On arrival to the ER he was found somewhat hypoxic with poor air movement which improved with nebulizer therapy. He was also administered prednisone in the emergency room and fentanyl for suspected COPD exacerbation. Chest x-ray was reviewed by me depicted of pulmonary vascular congestion but no focal infiltrates suggestive of pneumonia. He states that he was previously supposed to be on BiPAP because of sleep apnea and COPD but never received this. Past Med Surg Social Fam HX - Past Medical History Medical history: CHF, COPD, hypertension, other Additional medical history: POOR HISTORIAN Psychiatric history: no psych history - Past Surgical History Surgical History: other Additional surgical history: Tonsilectomy - Social History Smoking Status: Never smoker Smokeless Tobacco Status: No Alcohol use: none Drug use: none - Family History Mother Living Status: Hx Family Cardiac Disorders: Yes Hx Family Respiratory Disorders: No Hx Family Cancer: No Hx Family GI Disorders: No Hx Family Endocrine Disorder: No Hx Family Neuromuscular Disorders: No Hx Family Neurologic Disorders: No Hx Family HEENT Disorders: No Hx Family Autoimmune Disorders: No Father Living Status: Hx Family Cardiac Disorders: No Hx Family Respiratory Disorders: No Hx Family Cancer: No Hx Family GI Disorders: No Hx Family Endocrine Disorder: No Hx Family Neuromuscular Disorders: No (ALS) Hx Family Neurologic Disorders: No Hx Family HEENT Disorders: No Hx Family Autoimmune Disorders: No Internal Medicine - H&P: Meds Atorvastatin [Lipitor] 40 mg PO HS 07/29/15 [History] Sertraline [Zoloft] 200 mg PO QAM 07/29/15 [History] Albuterol Sulfate [Albuterol Inhaler] 2 puff IH Q4HR PRN 10/25/15 [History] Fluticasone Propionate Nasal [Flonase] 2 spray NS DAILY 7 Days bottle 11/10/15 [Rx] Budesonide/Formoterol 160/4.5 [Symbicort 160/4.5] 2 puff IH BIDR 01/10/17 [ History] Omeprazole [PriLOSEC] 40 mg PO DAILY 01/10/17 [History] Oxygen 1 each .ROUTE AD 01/10/17 [History] Folic Acid 1 mg PO DAILY tab 01/18/17 [Rx] Furosemide [Lasix] 40 mg PO BIDDIURETIC tab 01/18/17 [Rx] Ipratropium/Albuterol Neb [Duoneb] 3 ml IH [id number] inh 01/18/17 [Rx] Metoprolol XL (24 HR) Succ [Toprol Xl] 50 mg PO DAILY 01/18/17 [Rx] Vitamin B Complex/Vit C/Vit E [Stresstab] 1 each PO DAILY tab 01/18/17 [Rx] Nitroglycerin [Nitrostat] 0.4 mg SL Q5M PRN 01/20/17 [History] HYDROcodone/Acet 7.5/325 mg [[place] 7.5-325 mg] 1 tab PO Q8H PRN #15 01/28/17 [Rx ] Gabapentin [Neurontin] 1,200 mg PO TID 08/24/17 [History] Ondansetron ODT [Zofran ODT] 4 mg SL Q6HR 5 Days #20 tab.rapdis 08/26/17 [Rx] Thiamine (B-1) [Vitamin B-1] 100 mg PO DAILY 30 Days #30 tablet 08/26/17 [Rx] Montelukast [Singulair] 10 mg PO DAILY 01/07/18 [History] Potassium Chloride [K-Tab ER] 20 meq PO DAILY 01/07/18 [History] Ranitidine HCl [Acid [employer] Teacher] 150 mg PO BID 01/07/18 [History] Triamterene/HCTZ 37.5/25mg [Dyazide] 1 each PO DAILY 01/07/18 [History] 3 Allergy/AdvReac Type Severity Reaction Status Date / Time azithromycin [From Zithromax] Allergy Rash Verified 08/23/17 09:52 All Systems PM: A 10-system review of systems was performed and is negative for pertinent findings except as documented above in the HPI. - Constitutional Vitals: Temp Pulse Resp BP Pulse Ox 98.7 F 67 18 128/62 94 01/07/18 19:19 01/07/18 19:19 01/07/18 19:19 01/07/18 19:19 01/07/18 19:19 Exam: Vitals: Reviewed and seen to be within normal limits General: Obese male lying comfortably in bed in no acute distress Skin: Hyperpigmented and hyperkeratotic skin in both lower extremities HEENT: Moist mucous membranes. Neck: No lymphadenopathy. (+) JVD. Chest: Diminished thoracic expansion with rales auscultated in both lower lung barboza Heart: A 3/6 systolic ejection murmur over the apex Abdomen: Distended without fluid shifting noted and nontender to palpation Extremities: 3+ edema. Neurological: Awake, alert and oriented to person, place and time. No focal deficits. Internal Med - H&P Results - Labs CBC & Chem 7: 01/07/18 15:06 01/07/18 15:06 - Assessment and plan (1) CHF (congestive heart failure) Current Visit: Yes Status: Chronic Assessment and plan: The patient has increasing edema and progressive shortness of breath with pulmonary vascular congestion noted on x-ray and rales auscultated on physical exam which is suggestive of an acute on chronic systolic dysfunction. -We will order an echo -Placed on IV diuretics with Lasix 40 mg twice a day -Start low-dose CADENCE inhibitor -Continue home beta ulysses -Low sodium cardiac diet. -Check troponin levels Qualifiers: Heart failure type: systolic Heart failure chronicity: acute on chronic Qualified Code(s): I50.23 - Acute on chronic systolic (congestive) heart failure (2) Acute exacerbation of chronic obstructive airways disease Current Visit: Yes Status: Acute Assessment and plan: The patient also has a history of COPD and seemed to have improved with nebulizer therapy in the emergency room. At this time he is not wheezing actively. -Will place on LABA/ICS inhaler. -Has received 60 mg of prednisone and will defer continued use given the risk of ongoing water and sodium retention. -Duo-nebs every 6 hours -Supplemental oxygen to maintain SpO2 >92% (3) Anemia Current Visit: Yes Status: Acute Assessment and plan: Patient's old records were reviewed and he seemed to have a long-standing history of anemia and his current hemoglobin level is better than his previous. No signs of GI bleeding. -Followed as an outpatient. -No indication for transfusion. -Consider iron studies Qualifiers: Anemia type: unspecified type Qualified Code(s): D64.9 - Anemia, unspecified (4) Edema Current Visit: Yes Status: Acute Assessment and plan: Now associated with stasis dermatitis. -Diuretics ordered -Leg elevation -Compression stockings Qualifiers: Edema type: localized Qualified Code(s): R60.0 - Localized edema (5) Hypoxia Current Visit: Yes Status: Acute Assessment and plan: Likely associated with congestive heart failure and COPD. -Supplemental oxygen given and has improved. (6) Morbid obesity with BMI of 40.0-44.9, adult Current Visit: Yes Status: Chronic Assessment and plan: Therapeutic lifestyle education was given. 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 (7) Obstructive sleep apnea Current Visit: Yes Status: Acute Assessment and plan: Associated with morbid obesity. -Will place on CPAP at bedtime as needed (8) DVT prophylaxis Current Visit: No Status: Acute - Time Spent With Patient Total time spent is greater than 50% in coordination of care (as documented) at patient's floor/unit and/or counseling patient: Greater than 35 minutes
[2018-01-07] MEDS: Gabapentin 400 MG CAPSULE PO SCH (23:37)
[2018-01-07] MEDS: Furosemide 40 MG/4 ML VIAL IVP SCH (23:37)
[2018-01-07] MEDS: Famotidine 20 MG TABLET PO SCH (23:38)
[2018-01-07] MEDS: *HR* Heparin 5,000 UNIT/ML VIAL SQ SCH (23:38)
[2018-01-08] MEDS: Budesonide/Formoterol 160/4.5 MDI IH SCH ×3 (00:11→19:37)
[2018-01-08] MEDS: Ipratropium/Albuterol Neb 3 ML IH SCH ×7 (00:11→23:38)
[2018-01-08] MEDS: *HR* HYDROcodone/Acet 7.5/325 mg TABLET PO PRN ×3 (02:44→20:56)
[2018-01-08] MEDS: *HR* Heparin 5,000 UNIT/ML VIAL SQ SCH ×3 (06:16→20:56)
[2018-01-08 06:50] LABS: Basophils % 0.2 %; Hematocrit 37.6 % (37.5-50.1); Hemoglobin 11.6 g/dL (12.9-16.9); Immature Granulocytes % 0.2 % (0-4); Lymphocytes # 0.8 K/mcL (0.6-4.6); Lymphocytes % 18.8 %; Mean Corpuscular HGB Conc 30.9 g/dL (31.6-35.5); Mean Corpuscular Hemoglobin 29.5 pg (28.0-33.3); Mean Corpuscular Volume 95.7 fL (83.0-100.0); Mean Platelet Volume 10.3 fL (9.4-12.4); Monocytes # 0.2 K/mcL (0.0-1.3); Monocytes % 5.2 %; Neutrophils # 3.3 K/mcL (1.6-8.9); Platelet Count 167 K/mcL (140-400); Red Blood Count 3.93 M/mcL (4.19-5.50); Red Cell Distribution Width 12.8 % (11.5-14.5); Segmented Neutrophils % 75.6 %
[2018-01-08 07:09] LABS: BUN/Creatinine Ratio 25 (6-26); Blood Urea Nitrogen 27 mg/dL (8-23); Calcium 9.1 mg/dL (8.6-10.3); Carbon Dioxide 39 mEq/L (23-29); Chloride 98 mEq/L (98-107); Glucose 143 mg/dL (70-105); Osmolality,Calculated 300 (280-300); Potassium 3.2 mEq/L (3.5-5.1); Sodium 141 mEq/L (136-145); eGFR For African Americans > 60 (> 60); eGFR For Non-African Americans > 60 (> 60)
[2018-01-08] MEDS: Furosemide 40 MG/4 ML VIAL IVP SCH ×2 (08:07→20:54)
[2018-01-08] MEDS: Famotidine 20 MG TABLET PO SCH ×2 (08:07→20:56)
[2018-01-08] MEDS: Gabapentin 400 MG CAPSULE PO SCH ×3 (08:07→20:57)
[2018-01-08] MEDS: Vitamin B Complex/Vit C/Vit E 1 EACH TABLET PO SCH (08:08)
[2018-01-08] MEDS: Thiamine (B-1) 100 MG TABLET PO SCH (08:08)
[2018-01-08] MEDS: Folic Acid 1 MG TABLET PO SCH (08:08)
[2018-01-08] MEDS ORDERED: predniSONE 20 MG TABLET PO SCH (09:00)
[2018-01-08] MEDS: Metoprolol XL (24 HR) Succ 50 MG TAB.ER.24H PO SCH (11:12)
[2018-01-08] MEDS: Fluticasone Propionate Nasal 50 MCG/SPRAY BOTTLE NS SCH (14:57)
[2018-01-08] MEDS ORDERED: Potassium Chloride 20 MEQ, Lidocaine 1% 2 ML in D5% in Water 250 ML IVPB ONE (19:26)
--- NOTE | 2018-01-08 19:30 | Internal Med Progress Note ---
Date of Encounter: 01/08/18 Time of Encounter: 12:00 - Assessment and plan (1) CHF (congestive heart failure) Current Visit: Yes Status: Chronic Assessment and plan: Patient continues to hypoxia has improved we will continue with oxygen titrating to home oxygen use. Continue with Lasix Monitor intake and output daily weights Fluid restrictions 1500 mL Qualifiers: Heart failure type: systolic Heart failure chronicity: acute on chronic Qualified Code(s): I50.23 - Acute on chronic systolic (congestive) heart failure (2) Acute exacerbation of chronic obstructive airways disease Current Visit: Yes Status: Acute Assessment and plan: 1 Wheezing noted at this time we will continue with bronchodilators. Steroids this time due to CHF exacerbation Continue with oxygen titrating to maintain SPO2 greater than 92%. (3) Anemia Current Visit: Yes Status: Acute Assessment and plan: Currently hemoglobin is stable continue with FOLIC acid BX Qualifiers: Anemia type: unspecified type Qualified Code(s): D64.9 - Anemia, unspecified (4) Edema Current Visit: Yes Status: Acute Assessment and plan: 1 continues to have +1 pitting edema in lower extremities continue with IV Lasix Monitor intake and output daily weights Qualifiers: Edema type: localized Qualified Code(s): R60.0 - Localized edema (5) Hypoxia Current Visit: Yes Status: Acute Assessment and plan: Most likely related to CHF COPD exacerbation Currently on 2 L of oxygen 98% at this time (6) Obstructive sleep apnea Current Visit: Yes Status: Acute Assessment and plan: Patient has history obstructive sleep apnea however he refuses to wear CPAP continue with oxygen (7) Morbid obesity with BMI of 40.0-44.9, adult Current Visit: Yes Status: Chronic Assessment and plan: encourage lifestyle changes (8) DVT prophylaxis Current Visit: No Status: Acute Assessment and plan: Heparin sc - Time Spent With Patient Total time spent is greater than 50% in coordination of care (as documented) at patient's floor/unit and/or counseling patient: - Subjective Interval history: Patient was seen and examined at bedside denies any chest pain or shortness of breath this time. - Constitutional Vitals: Temp Pulse Resp BP Pulse Ox 98.3 F 66 16 104/58 97 01/08/18 15:18 01/08/18 15:18 01/08/18 16:30 01/08/18 15:18 01/08/18 16:30 General appearance: Present: A&O X 3 - Head Head exam: Present: atraumatic, normocephalic - Eye Eye exam: Present: PERRL, conjuntiva pink, sclera anicteric Pupils: Present: PERRL - Neck Neck exam general surgery: Present: supple, trachea midline. Absent: lymphadenopathy - Respiratory Respiratory exam: Present: CTAB. Absent: accessory muscle use, rales, rhonchi, wheezes - Cardiovascular Cardiovascular exam: Present: RRR, +S1, +S2. Absent: diastolic murmur, gallop, rubs, systolic murmur - GI/Abdominal GI/Abdominal exam: Present: normal bowel sounds, soft, no peritoneal signs. Absent: distended, tenderness - Extremities Exam Extremities exam: Present: pedal edema, warm, radial pulses palpable and symmetrical. Absent: calf tenderness, cyanotic - Neurological Exam Neurological exam: Present: CN II-XII intact, oriented X3, no focal deficits. Absent: pronater drift, facial droop, speech deficit - Skin Skin exam: Present: dry, intact Internal Medicine: Result - Labs CBC & Chem 7: 01/08/18 06:23 01/08/18 06:23 Labs: Short CBC 01/08/18 Range/Units 06:23 WBC 4.4 (4.3-11.1) K/mcL Hgb 11.6 L (12.9-16.9) g/dL Hct 37.6 (37.5-50.1) % Plt Count 167 (140-400) K/mcL Neutrophils # 3.3 (1.6-8.9) K/mcL BMP 01/08/18 06:23 Sodium 141 Potassium 3.2 L Chloride 98 Carbon Dioxide 39 H BUN 27 H Creatinine 1.08 Glucose 143 H Calcium 9.1 Cardiac Enzymes 01/07/18 Range/Units 20:12 Troponin I < 0.03 (< 0.04) ng/mL - ABG Interpretation ABG results: PT/INR, D-dimer PT 11.7 Seconds (9.4-12.1) 01/07/18 15:06 Consult Discharge Plan - Plan Referrals: NONE,PCP [Primary Care Provider] -
[2018-01-09] MEDS: Ipratropium/Albuterol Neb 3 ML IH SCH ×5 (04:22→20:25)
[2018-01-09 05:10] LABS: Basophils % 0.8 %; Eosinophils # 0.2 K/mcL (0.0-0.6); Eosinophils % 4.6 %; Hematocrit 36.9 % (37.5-50.1); Hemoglobin 11.2 g/dL (12.9-16.9); Immature Granulocytes % 0.2 % (0-4); Lymphocytes # 1.5 K/mcL (0.6-4.6); Lymphocytes % 29.5 %; Mean Corpuscular HGB Conc 30.4 g/dL (31.6-35.5); Mean Corpuscular Hemoglobin 28.9 pg (28.0-33.3); Mean Corpuscular Volume 95.1 fL (83.0-100.0); Mean Platelet Volume 10.4 fL (9.4-12.4); Monocytes # 0.5 K/mcL (0.0-1.3); Monocytes % 10.4 %; Neutrophils # 2.7 K/mcL (1.6-8.9); Platelet Count 182 K/mcL (140-400); Red Blood Count 3.88 M/mcL (4.19-5.50); Red Cell Distribution Width 13.3 % (11.5-14.5); Segmented Neutrophils % 54.5 %
[2018-01-09 05:28] LABS: BUN/Creatinine Ratio 24 (6-26); Blood Urea Nitrogen 33 mg/dL (8-23); Calcium 9.1 mg/dL (8.6-10.3); Carbon Dioxide 38 mEq/L (23-29); Chloride 97 mEq/L (98-107); Glucose 122 mg/dL (70-105); Osmolality,Calculated 301 (280-300); Sodium 141 mEq/L (136-145); eGFR For African Americans > 60 (> 60); eGFR For Non-African Americans 54 (> 60)
[2018-01-09] MEDS: *HR* HYDROcodone/Acet 7.5/325 mg TABLET PO PRN ×2 (05:39→14:17)
[2018-01-09] MEDS: *HR* Heparin 5,000 UNIT/ML VIAL SQ SCH ×3 (05:40→22:08)
[2018-01-09] MEDS ORDERED: Potassium Chloride 40 MEQ, Lidocaine 1% 2 ML in D5% in Water 500 ML IVPB ONE (07:56)
[2018-01-09] MEDS: Budesonide/Formoterol 160/4.5 MDI IH SCH ×2 (07:59→20:25)
[2018-01-09] MEDS: Gabapentin 400 MG CAPSULE PO SCH ×3 (08:03→22:12)
[2018-01-09] MEDS: Thiamine (B-1) 100 MG TABLET PO SCH (08:03)
[2018-01-09] MEDS: Famotidine 20 MG TABLET PO SCH ×2 (08:03→22:01)
[2018-01-09] MEDS: Folic Acid 1 MG TABLET PO SCH (08:05)
[2018-01-09] MEDS: Vitamin B Complex/Vit C/Vit E 1 EACH TABLET PO SCH (08:05)
[2018-01-09] MEDS: Metoprolol XL (24 HR) Succ 50 MG TAB.ER.24H PO SCH (08:05)
[2018-01-09] MEDS: Furosemide 40 MG/4 ML VIAL IVP SCH ×2 (08:05→22:03)
[2018-01-09] MEDS: Fluticasone Propionate Nasal 50 MCG/SPRAY BOTTLE NS SCH (09:27)
--- NOTE | 2018-01-09 10:29 | Internal Med Progress Note ---
Date of Encounter: 01/09/18 Time of Encounter: 10:28 - Assessment and plan (1) CHF (congestive heart failure) Current Visit: Yes Status: Chronic Assessment and plan: Patient continues to hypoxia has improved we will ambulate the patient and monitor SPO2 Continue with Lasix Monitor intake and output daily weights Fluid restrictions 1500 mL Qualifiers: Heart failure type: systolic Heart failure chronicity: acute on chronic Qualified Code(s): I50.23 - Acute on chronic systolic (congestive) heart failure (2) Acute exacerbation of chronic obstructive airways disease Current Visit: Yes Status: Acute Assessment and plan: 1 Wheezing improved we will continue with bronchodilators defer Steroids this time due to CHF exacerbation Continue with oxygen titrating to maintain SPO2 greater than 92%. (3) Anemia Current Visit: Yes Status: Acute Assessment and plan: Currently hemoglobin is stable continue with FOLIC acid BX Qualifiers: Anemia type: unspecified type Qualified Code(s): D64.9 - Anemia, unspecified (4) Edema Current Visit: Yes Status: Acute Assessment and plan: 1 continues to have +1 pitting edema in lower extremities continue with IV Lasix Monitor intake and output daily weights Qualifiers: Edema type: localized Qualified Code(s): R60.0 - Localized edema (5) Hypoxia Current Visit: Yes Status: Acute Assessment and plan: Most likely related to CHF COPD exacerbation Currently on 2-3 L of oxygen will attempt to ambulate and monitor Spo2 (6) Obstructive sleep apnea Current Visit: Yes Status: Acute Assessment and plan: Patient has history obstructive sleep apnea however he refuses to wear CPAP continue with oxygen (7) Morbid obesity with BMI of 40.0-44.9, adult Current Visit: Yes Status: Chronic Assessment and plan: encourage lifestyle changes (8) DVT prophylaxis Current Visit: No Status: Acute Assessment and plan: Heparin sc - Time Spent With Patient Total time spent is greater than 50% in coordination of care (as documented) at patient's floor/unit and/or counseling patient: - Subjective Interval history: Patient was seen and examined at bedside denies any chest pain or shortness of breath this time. - Constitutional Vitals: Temp Pulse Resp BP Pulse Ox 97.9 F 105 18 128/70 97 01/09/18 07:58 01/09/18 07:58 01/09/18 08:01 01/09/18 07:58 01/09/18 08:01 General appearance: Present: A&O X 3 - Head Head exam: Present: atraumatic, normocephalic - Eye Eye exam: Present: PERRL, conjuntiva pink, sclera anicteric Pupils: Present: PERRL - Neck Neck exam general surgery: Present: supple, trachea midline. Absent: lymphadenopathy - Respiratory Respiratory exam: Present: wheezes. Absent: accessory muscle use, rales, rhonchi - Cardiovascular Cardiovascular exam: Present: RRR, +S1, +S2. Absent: diastolic murmur, gallop, rubs, systolic murmur - GI/Abdominal GI/Abdominal exam: Present: normal bowel sounds, soft, no peritoneal signs. Absent: distended, tenderness - Extremities Exam Extremities exam: Present: warm, radial pulses palpable and symmetrical. Absent : calf tenderness, cyanotic, pedal edema - Neurological Exam Neurological exam: Present: CN II-XII intact, oriented X3, no focal deficits. Absent: pronater drift, facial droop, speech deficit - Skin Skin exam: Present: dry, intact Internal Medicine: Result - Labs CBC & Chem 7: 01/09/18 04:37 01/09/18 04:37 Labs: Short CBC 01/09/18 Range/Units 04:37 WBC 5.0 (4.3-11.1) K/mcL Hgb 11.2 L (12.9-16.9) g/dL Hct 36.9 L (37.5-50.1) % Plt Count 182 (140-400) K/mcL Neutrophils # 2.7 (1.6-8.9) K/mcL BMP 01/09/18 04:37 Sodium 141 Potassium 3.0 L Chloride 97 L Carbon Dioxide 38 H BUN 33 H Creatinine 1.35 H Glucose 122 H Calcium 9.1 - ABG Interpretation ABG results: PT/INR, D-dimer PT 11.7 Seconds (9.4-12.1) 01/07/18 15:06 - Impressions Impressions Echocardiogram 01/08/18 20:48 Impressions: Technically sub-optimal due to poor echocardiographic windows. Grossly normal LV systolic function (visualized in PSAX view). LV function not well visualized in other windows. RV size and function not well evaluated. Valves not well evaluated. Findings: Study Quality * Technically sub-optimal due to poor echocardiographic windows. ECG Findings * Normal sinus rhythm. Left Ventricle * Grossly normal LV systolic function (visualized in PSAX view). * LV wall thickness and size not well visualized. Right Ventricle * RV size and function not well evaluated. Left Atrium * Left atrium is not well visualized. Right Atrium * Right atrium is not well visualized. Aortic Valve * No aortic regurgitation. * Aortic valve not well visualized. * Doppler could not be performed (no apical views). Mitral Valve * No mitral regurgitation. * Mitral valve not well visualized. * Doppler not performed. Pulmonic Valve * Pulmonic valve is not well visualized. * No pulmonic stenosis. * No pulmonic regurgitation. Tricuspid Valve * Tricuspid valve not well visualized. * Trace tricuspid regurgitation. Pulmonary Artery * Pulmonary artery not well visualized. Aorta * Not well visualized. IVC * The IVC is not well evaluated. Interatrial Septum * Interatrial septum not well evaluated. Consult Discharge Plan - Plan Referrals: NONE,PCP [Primary Care Provider] -
[2018-01-10] MEDS: Ipratropium/Albuterol Neb 3 ML IH SCH ×6 (00:01→20:01)
[2018-01-10] MEDS: *HR* HYDROcodone/Acet 7.5/325 mg TABLET PO PRN ×3 (00:54→17:55)
[2018-01-10] MEDS: *HR* Heparin 5,000 UNIT/ML VIAL SQ SCH ×3 (05:25→21:48)
[2018-01-10 07:43] LABS: Basophils % 0.3 %; Eosinophils # 0.4 K/mcL (0.0-0.6); Eosinophils % 6.2 %; Hematocrit 37.5 % (37.5-50.1); Hemoglobin 11.6 g/dL (12.9-16.9); Immature Granulocytes % 0.2 % (0-4); Lymphocytes # 1.5 K/mcL (0.6-4.6); Lymphocytes % 22.7 %; Mean Corpuscular HGB Conc 30.9 g/dL (31.6-35.5); Mean Corpuscular Hemoglobin 29.6 pg (28.0-33.3); Mean Corpuscular Volume 95.7 fL (83.0-100.0); Mean Platelet Volume 10.5 fL (9.4-12.4); Monocytes # 0.6 K/mcL (0.0-1.3); Monocytes % 9.2 %; Platelet Count 192 K/mcL (140-400); Red Blood Count 3.92 M/mcL (4.19-5.50); Red Cell Distribution Width 13.2 % (11.5-14.5); Segmented Neutrophils % 61.4 %
[2018-01-10 08:03] LABS: BUN/Creatinine Ratio 26 (6-26); Blood Urea Nitrogen 32 mg/dL (8-23); Calcium 8.7 mg/dL (8.6-10.3); Carbon Dioxide 36 mEq/L (23-29); Chloride 94 mEq/L (98-107); Glucose 116 mg/dL (70-105); Osmolality,Calculated 292 (280-300); Potassium 2.9 mEq/L (3.5-5.1); Sodium 137 mEq/L (136-145); eGFR For African Americans > 60 (> 60); eGFR For Non-African Americans > 60 (> 60)
[2018-01-10] MEDS: Vitamin B Complex/Vit C/Vit E 1 EACH TABLET PO SCH (09:08)
[2018-01-10] MEDS: Thiamine (B-1) 100 MG TABLET PO SCH (09:08)
[2018-01-10] MEDS: Folic Acid 1 MG TABLET PO SCH (09:08)
[2018-01-10] MEDS: Furosemide 40 MG/4 ML VIAL IVP SCH ×2 (09:08→17:52)
[2018-01-10] MEDS: Famotidine 20 MG TABLET PO SCH ×2 (09:08→21:48)
[2018-01-10] MEDS: Gabapentin 400 MG CAPSULE PO SCH ×3 (09:08→21:48)
[2018-01-10] MEDS: Fluticasone Propionate Nasal 50 MCG/SPRAY BOTTLE NS SCH (09:09)
[2018-01-10] MEDS: Metoprolol XL (24 HR) Succ 50 MG TAB.ER.24H PO SCH (09:10)
[2018-01-10] MEDS: Budesonide/Formoterol 160/4.5 MDI IH SCH ×2 (11:08→20:01)
[2018-01-10] MEDS ORDERED: Potassium Chloride 40 MEQ, Lidocaine 1% 2 ML in D5% in Water 500 ML IVPB ONE (16:15)
--- NOTE | 2018-01-10 16:26 | Internal Med Progress Note ---
Date of Encounter: 01/10/18 Time of Encounter: 11:00 - Assessment and plan (1) CHF (congestive heart failure) Current Visit: Yes Status: Chronic Assessment and plan: Patient continues to hypoxia has improved we will ambulate the patient and monitor SPO2 Continue with Lasix Monitor intake and output daily weights Fluid restrictions 1500 mL Qualifiers: Heart failure type: systolic Heart failure chronicity: acute on chronic Qualified Code(s): I50.23 - Acute on chronic systolic (congestive) heart failure (2) Acute exacerbation of chronic obstructive airways disease Current Visit: Yes Status: Acute Assessment and plan: 1 Wheezing improwe will continue with bronchodilators defer Steroids this time due to CHF exacerbation Continue with oxygen titrating to maintain SPO2 greater than 92%. We will ambulate the patient and monitor SPO2 with oxygen Consult PT OT for evaluation (3) Anemia Current Visit: Yes Status: Acute Assessment and plan: Currently hemoglobin is stable continue with FOLIC acid -continue to monitor Qualifiers: Anemia type: unspecified type Qualified Code(s): D64.9 - Anemia, unspecified (4) Edema Current Visit: Yes Status: Acute Assessment and plan: 1 edema is improving continue with IV Lasix Monitor intake and output daily weights Qualifiers: Edema type: localized Qualified Code(s): R60.0 - Localized edema (5) Hypoxia Current Visit: Yes Status: Acute Assessment and plan: Most likely related to CHF COPD exacerbation Currently on 2-3 L of oxygen will attempt to ambulate patient and monitor SPO2 (6) Obstructive sleep apnea Current Visit: Yes Status: Acute Assessment and plan: Patient has history obstructive sleep apnea however he refuses to wear CPAP continue with oxygen (7) Morbid obesity with BMI of 40.0-44.9, adult Current Visit: Yes Status: Chronic Assessment and plan: encourage lifestyle changes (8) DVT prophylaxis Current Visit: No Status: Acute Assessment and plan: Heparin sc (9) Hypokalemia Current Visit: Yes Status: Acute Assessment and plan: 1 potassium was 2.9 today we will replace and monitor. Continue with oral replacement as well - Time Spent With Patient Total time spent is greater than 50% in coordination of care (as documented) at patient's floor/unit and/or counseling patient: - Subjective Interval history: Patient was seen and examined at bedside denies any chest pain or shortness of breath at this time. We will have patient evaluated by home health - Constitutional Vitals: Temp Pulse Resp BP Pulse Ox 98.9 F 68 15 140/77 99 01/10/18 11:52 01/10/18 11:52 01/10/18 16:08 01/10/18 11:52 01/10/18 16:08 General appearance: Present: A&O X 3, morbidly obese - Head Head exam: Present: atraumatic, normocephalic - Eye Eye exam: Present: PERRL, conjuntiva pink, sclera anicteric Pupils: Present: PERRL - Neck Neck exam general surgery: Present: supple, trachea midline. Absent: lymphadenopathy - Respiratory Respiratory exam: Present: CTAB. Absent: accessory muscle use, rales, rhonchi, wheezes - Cardiovascular Cardiovascular exam: Present: RRR, +S1, +S2. Absent: diastolic murmur, gallop, rubs, systolic murmur - GI/Abdominal GI/Abdominal exam: Present: normal bowel sounds, soft, no peritoneal signs. Absent: distended, tenderness - Extremities Exam Extremities exam: Present: warm, radial pulses palpable and symmetrical. Absent : calf tenderness, cyanotic, pedal edema - Neurological Exam Neurological exam: Present: CN II-XII intact, oriented X3, no focal deficits. Absent: pronater drift, facial droop, speech deficit - Skin Skin exam: Present: dry, intact Internal Medicine: Result - Labs CBC & Chem 7: 01/10/18 06:36 01/10/18 06:36 Labs: Short CBC 01/10/18 Range/Units 06:36 WBC 6.4 (4.3-11.1) K/mcL Hgb 11.6 L (12.9-16.9) g/dL Hct 37.5 (37.5-50.1) % Plt Count 192 (140-400) K/mcL Neutrophils # 4.0 (1.6-8.9) K/mcL BMP 01/10/18 06:36 Sodium 137 Potassium 2.9 L Chloride 94 L Carbon Dioxide 36 H BUN 32 H Creatinine 1.21 Glucose 116 H Calcium 8.7 - ABG Interpretation ABG results: PT/INR, D-dimer PT 11.7 Seconds (9.4-12.1) 01/07/18 15:06 Consult Discharge Plan - Plan Referrals: NONE,PCP [Primary Care Provider] -
[2018-01-10] MEDS ORDERED: Furosemide 40 MG TABLET PO SCH (17:00)
--- NOTE | 2018-01-10 18:41 | Electrocardiograph Report ---
[address] [place], [place] [address] Test Date: 2018-01-07 Pat Name: Juancarlos Dumas Department: 104 Room: 3B Gender: M Time Buyer: : 1955 Requested By: All [employer]ila Order Number: [id number] Reading MD: Kei Cuadra Measurements Intervals [place] Rate: 64 P: -19 FL: 161 QRS: 23 QRSD: 113 T: 34 QT: 404 QTc: 414 Interpretive Statements SINUS RHYTHM WITH SINUS ARRHYTHMIA Electronically Signed On 01-10-2018 18:40:15 EDT by Kei Cuadra
[2018-01-11] MEDS: Ipratropium/Albuterol Neb 3 ML IH SCH ×6 (00:03→20:19)
[2018-01-11] MEDS: *HR* HYDROcodone/Acet 7.5/325 mg TABLET PO PRN ×2 (04:33→14:54)
[2018-01-11] MEDS: *HR* Heparin 5,000 UNIT/ML VIAL SQ SCH ×3 (05:05→21:26)
[2018-01-11 07:00] LABS: Basophils % 0.4 %; Eosinophils # 0.3 K/mcL (0.0-0.6); Eosinophils % 5.4 %; Hematocrit 34.7 % (37.5-50.1); Hemoglobin 10.4 g/dL (12.9-16.9); Lymphocytes # 1.1 K/mcL (0.6-4.6); Lymphocytes % 20.9 %; Mean Corpuscular Volume 96.7 fL (83.0-100.0); Mean Platelet Volume 10.6 fL (9.4-12.4); Monocytes # 0.6 K/mcL (0.0-1.3); Monocytes % 11.2 %; Neutrophils # 3.1 K/mcL (1.6-8.9); Platelet Count 145 K/mcL (140-400); Red Blood Count 3.59 M/mcL (4.19-5.50); Red Cell Distribution Width 13.2 % (11.5-14.5); Segmented Neutrophils % 62.1 %
[2018-01-11] MEDS: Budesonide/Formoterol 160/4.5 MDI IH SCH ×2 (07:44→20:19)
[2018-01-11] MEDS: Metoprolol XL (24 HR) Succ 50 MG TAB.ER.24H PO SCH (08:50)
[2018-01-11] MEDS: Famotidine 20 MG TABLET PO SCH ×2 (08:50→21:26)
[2018-01-11] MEDS: Gabapentin 400 MG CAPSULE PO SCH ×3 (08:50→21:26)
[2018-01-11] MEDS: Thiamine (B-1) 100 MG TABLET PO SCH (08:50)
[2018-01-11] MEDS: Furosemide 40 MG/4 ML VIAL IVP SCH (08:51)
[2018-01-11] MEDS: Folic Acid 1 MG TABLET PO SCH (08:51)
[2018-01-11] MEDS: Vitamin B Complex/Vit C/Vit E 1 EACH TABLET PO SCH (08:51)
[2018-01-11] MEDS: Fluticasone Propionate Nasal 50 MCG/SPRAY BOTTLE NS SCH (08:52)
[2018-01-11 09:09] LABS: Calcium 8.5 mg/dL (8.6-10.3)
[2018-01-11] MEDS ORDERED: Potassium Chloride Elixir 20 MEQ/15 ML UDC PO ONE (09:16)
--- NOTE | 2018-01-11 16:54 | Internal Med Progress Note ---
Date of Encounter: 01/11/18 Time of Encounter: 13:10 - Assessment and plan (1) CHF (congestive heart failure) Current Visit: Yes Status: Acute Assessment and plan: Echocardiogram shows technically suboptimal, grossly normal systolic function, RV size and function and valves are not well evaluated. Will change LASIX to PO form, had net negative fluid balance of 5L; continue fluid restriction, daily weights; continue ACEI, beta ulysses; PT evaluation recommends ECF placement; patient currently agreeable; geriatric social worker consulted; Qualifiers: Heart failure type: systolic Heart failure chronicity: acute on chronic Qualified Code(s): I50.23 - Acute on chronic systolic (congestive) heart failure (2) DVT prophylaxis Current Visit: Yes Status: Acute (3) Morbid obesity with BMI of 40.0-44.9, adult Current Visit: Yes Status: Chronic (4) Obstructive sleep apnea Current Visit: Yes Status: Suspected (5) Hypokalemia Current Visit: Yes Status: Acute Assessment and plan: due to diuretics; supplement with PO KCl; (6) Essential hypertension Current Visit: Yes Status: Chronic (7) Respiratory failure with hypoxia Current Visit: Yes Status: Acute Assessment and plan: noted to be on 2L/min at home; wean down FiO2 as tolerated; Qualifiers: Chronicity: acute on chronic Qualified Code(s): J96.21 - Acute and chronic respiratory failure with hypoxia (8) COPD (chronic obstructive pulmonary disease) Current Visit: Yes Status: Chronic Qualifiers: COPD type: unspecified COPD Qualified Code(s): J44.9 - Chronic obstructive pulmonary disease, unspecified - Time Spent With Patient Total time spent is greater than 50% in coordination of care (as documented) at patient's floor/unit and/or counseling patient: - Subjective Interval history: Reports feeling better. Improved shortness of breath, persistent but improved leg swelling. No chest pain, palpitations, fever, chills. - Constitutional Vitals: Temp Pulse Resp BP Pulse Ox 97.4 F L 56 19 127/71 99 01/11/18 16:39 01/11/18 16:39 01/11/18 16:39 01/11/18 16:39 01/11/18 16:39 General appearance: Present: A&O X 3, morbidly obese, answers questions appropriately - Respiratory Respiratory exam: Present: CTAB (faint crackles at bases). Absent: accessory muscle use, rales, rhonchi, wheezes - Cardiovascular Cardiovascular exam: Present: RRR, +S1, +S2. Absent: diastolic murmur, gallop, rubs, systolic murmur - GI/Abdominal GI/Abdominal exam: Present: normal bowel sounds, soft (obese), no peritoneal signs. Absent: distended, tenderness - Extremities Exam Extremities exam: Present: full ROM, pedal edema (2+ pitting pedal edema), warm , radial pulses palpable and symmetrical. Absent: calf tenderness, cyanotic - Neurological Exam Neurological exam: Present: CN II-XII intact, oriented X3, no focal deficits. Absent: pronater drift, facial droop, speech deficit Internal Medicine: Result - Labs CBC & Chem 7: 01/11/18 05:55 01/11/18 05:55 Labs: Short CBC 01/11/18 Range/Units 05:55 WBC 5.0 (4.3-11.1) K/mcL Hgb 10.4 L (12.9-16.9) g/dL Hct 34.7 L (37.5-50.1) % Plt Count 145 (140-400) K/mcL Neutrophils # 3.1 (1.6-8.9) K/mcL BMP 01/11/18 05:55 Sodium 141 Potassium 3.0 L Chloride 97 L Carbon Dioxide 41 H* BUN 34 H Creatinine 1.49 H Glucose 114 H Calcium 8.5 L - ABG Interpretation ABG results: PT/INR, D-dimer PT 11.7 Seconds (9.4-12.1) 01/07/18 15:06 Consult Discharge Plan - Plan Referrals: NONE,PCP [Primary Care Provider] -
[2018-01-11] MEDS: Furosemide 40 MG TABLET PO SCH (17:05)
[2018-01-12] MEDS: Ipratropium/Albuterol Neb 3 ML IH SCH ×5 (00:21→15:54)
[2018-01-12] MEDS: *HR* HYDROcodone/Acet 7.5/325 mg TABLET PO PRN ×2 (01:06→15:23)
[2018-01-12] MEDS: *HR* Heparin 5,000 UNIT/ML VIAL SQ SCH ×2 (04:57→13:48)
[2018-01-12] MEDS: Furosemide 40 MG TABLET PO SCH ×2 (07:40→17:41)
[2018-01-12] MEDS: Famotidine 20 MG TABLET PO SCH (07:40)
[2018-01-12] MEDS: Gabapentin 400 MG CAPSULE PO SCH ×2 (07:41→13:48)
[2018-01-12] MEDS: Metoprolol XL (24 HR) Succ 50 MG TAB.ER.24H PO SCH (07:41)
[2018-01-12] MEDS: Vitamin B Complex/Vit C/Vit E 1 EACH TABLET PO SCH (07:41)
[2018-01-12] MEDS: Folic Acid 1 MG TABLET PO SCH (07:41)
[2018-01-12] MEDS: Thiamine (B-1) 100 MG TABLET PO SCH (07:41)
[2018-01-12] MEDS: Fluticasone Propionate Nasal 50 MCG/SPRAY BOTTLE NS SCH (07:43)
[2018-01-12] MEDS: Budesonide/Formoterol 160/4.5 MDI IH SCH (07:53)
[2018-01-12 11:52] VITALS: BP 95/60
--- NOTE | 2018-01-12 15:53 | Discharge Summary ---
- NOTES TO OUTPATIENT PROVIDER Notes to Outpatient Provider: Acute CHF- improved Orders not resulted at time of discharge: Pending orders 01/13/18 04:00 Basic Metabolic Panel AM 0400 Magnesium AM 0400 Date of Encounter: 01/12/18 Time of Encounter: 15:52 - Discharge Diagnosis (1) CHF (congestive heart failure) Priority: Primary Status: Acute Qualifiers: Heart failure type: systolic Heart failure chronicity: acute on chronic Qualified Code(s): I50.23 - Acute on chronic systolic (congestive) heart failure (2) Morbid obesity with BMI of 40.0-44.9, adult Priority: Secondary Status: Chronic (3) Obstructive sleep apnea Priority: Secondary Status: Suspected (4) Hypokalemia Priority: Primary Status: Acute (5) Essential hypertension Priority: Secondary Status: Chronic (6) Respiratory failure with hypoxia Priority: Secondary Status: Chronic Qualifiers: Chronicity: acute on chronic Qualified Code(s): J96.21 - Acute and chronic respiratory failure with hypoxia (7) COPD (chronic obstructive pulmonary disease) Priority: Secondary Status: Chronic Qualifiers: COPD type: unspecified COPD Qualified Code(s): J44.9 - Chronic obstructive pulmonary disease, unspecified Hospital course: Mr. Dumas is a 62 year old male with the above medical problems who was admitted with shortness of breath and leg swelling. He was noted to be in acute exacerbation of CHF, started on IV diuresis with Lasix along with fluid restriction. Echocardiogram was done which was technically suboptimal due to body habitus, showed grossly normal LV systolic function. Patient improved symptomatically. Physical and occupational therapy evaluation recommended ECF placement and is medically stable for this transfer. Discharge discussed with: patient, nurse, case management - Time Spent with Patient Total time spent providing and/or coordinating discharge services: Greater than 30 minutes (45 min) - Discharge Medications Prescriptions: Gabapentin [Neurontin] 1,200 mg PO TID 3 Days #30 capsule HYDROcodone/Acet 7.5/325 mg [[place] 7.5-325 mg] 1 tab PO Q8H PRN 3 Days #10 tablet PRN Reason: Pain Home Medications: Atorvastatin [Lipitor] 40 mg PO HS 07/29/15 [History] Sertraline [Zoloft] 200 mg PO QAM 07/29/15 [History] Albuterol Sulfate [Albuterol Inhaler] 2 puff IH Q4HR PRN 10/25/15 [History] Fluticasone Propionate Nasal [Flonase] 2 spray NS DAILY 7 Days bottle 11/10/15 [Rx] Budesonide/Formoterol 160/4.5 [Symbicort 160/4.5] 2 puff IH BIDR 01/10/17 [ History] Omeprazole [PriLOSEC] 40 mg PO DAILY 01/10/17 [History] Oxygen 1 each .ROUTE AD 01/10/17 [History] Folic Acid 1 mg PO DAILY tab 01/18/17 [Rx] Furosemide [Lasix] 40 mg PO BIDDIURETIC tab 01/18/17 [Rx] Ipratropium/Albuterol Neb [Duoneb] 3 ml IH [id number] inh 01/18/17 [Rx] Metoprolol XL (24 HR) Succ [Toprol Xl] 50 mg PO DAILY 01/18/17 [Rx] Vitamin B Complex/Vit C/Vit E [Stresstab] 1 each PO DAILY tab 01/18/17 [Rx] Nitroglycerin [Nitrostat] 0.4 mg SL Q5M PRN 01/20/17 [History] Thiamine (B-1) [Vitamin B-1] 100 mg PO DAILY 30 Days #30 tablet 08/26/17 [Rx] Montelukast [Singulair] 10 mg PO DAILY 01/07/18 [History] Ranitidine HCl [Acid Pegger Dobby Looms] 150 mg PO BID 01/07/18 [History] Gabapentin [Neurontin] 1,200 mg PO TID 3 Days #30 capsule 01/12/18 [Rx] HYDROcodone/Acet 7.5/325 mg [[place] 7.5-325 mg] 1 tab PO Q8H PRN 3 Days #10 tablet 01/12/18 [Rx] Potassium Chloride [K-Tab ER] 20 meq PO BID #0 01/12/18 [Rx] Guaifenesin [Mucinex] 600 mg PO BID 01/14/18 [History] Ondansetron ODT [Zofran ODT] 4 mg SL Q6HR PRN 01/14/18 [History] Polyethylene Glycol 3350 [MiraLAX] 17 gm PO DAILY 01/14/18 [History] Allergies/Adverse Reactions: 3 Allergy/AdvReac Type Severity Reaction Status Date / Time azithromycin [From Zithromax] Allergy Rash Verified 08/23/17 09:52 Date of admission: 01/10/18 16:30 Primary care physician: PCP NONE Discharging clinician: Jade Sinha Anticipated date of discharge: 01/12/18 - Constitutional Vitals: Temp Pulse Resp BP Pulse Ox 97.6 F 65 20 95/60 96 01/12/18 11:51 01/12/18 11:51 01/12/18 11:51 01/12/18 11:51 01/12/18 11:51 General appearance: Present: A&O X 3, morbidly obese, answers questions appropriately - Respiratory Respiratory exam: Present: CTAB, rales (bibasal). Absent: accessory muscle use , rhonchi, wheezes - Cardiovascular Cardiovascular exam: Present: RRR, +S1, +S2. Absent: diastolic murmur, gallop, rubs, systolic murmur - Patient Status Disposition: Transfer SNF Condition: Fair Functional capacity at discharge: uses cane/walker Overall status at discharge: patient is progressing back to baseline - Discharge Instructions Instructions: Heart Failure (DC), Chest Pain (DC), Bronchiolitis (DC), Gastrointestinal Bleeding (DC), Acute Kidney Injury (DC), Urinary Tract Infection in Men (DC), Gastroenteritis (DC), Chronic Obstructive Pulmonary Disease (DC), Alcohol Intoxication (DC), Alcohol Withdrawal (DC), Ascites (DC), Weakness (GEN), Anemia (GEN), Fall Prevention (DC) Follow Up With: NONE,PCP [Primary Care Provider] - Additional Instructions: F/up with PCP in 1-2 weeks - Diet and Activity Activity: as per physical therapy, wear oxygen at all times Diet: low fat, low cholesterol, low salt diet, other (fluid restriction to 1.5L/ day)
--- NOTE | 2018-01-12 17:42 | Physician Discharge Referral ---
ExtendedCare Referral Info Transfer To: [facility] Provider in Charge: Jade Sinha Provider in Charge after Transfer: PCP Institutional Level of Care: Skilled - Diagnosis (1) CHF (congestive heart failure) Priority: Primary Status: Acute (2) Morbid obesity with BMI of 40.0-44.9, adult Priority: Secondary Status: Chronic (3) Obstructive sleep apnea Priority: Secondary Status: Suspected (4) Hypokalemia Priority: Primary Status: Acute (5) Essential hypertension Priority: Secondary Status: Chronic (6) Respiratory failure with hypoxia Priority: Primary Status: Chronic (7) COPD (chronic obstructive pulmonary disease) Priority: Secondary Status: Chronic Expected Duration of Placement: 2 weeks Prognosis: Good Aware of Diagnosis: Patient - Transfer Medications Prescriptions: Gabapentin [Neurontin] 1,200 mg PO TID 3 Days #30 capsule HYDROcodone/Acet 7.5/325 mg [[place] 7.5-325 mg] 1 tab PO Q8H PRN 3 Days #10 tablet PRN Reason: Pain Home Medications: Atorvastatin [Lipitor] 40 mg PO HS 07/29/15 [History] Sertraline [Zoloft] 200 mg PO QAM 07/29/15 [History] Albuterol Sulfate [Albuterol Inhaler] 2 puff IH Q4HR PRN 10/25/15 [History] Fluticasone Propionate Nasal [Flonase] 2 spray NS DAILY 7 Days bottle 11/10/15 [Rx] Budesonide/Formoterol 160/4.5 [Symbicort 160/4.5] 2 puff IH BIDR 01/10/17 [ History] Omeprazole [PriLOSEC] 40 mg PO DAILY 01/10/17 [History] Oxygen 1 each .ROUTE AD 01/10/17 [History] Folic Acid 1 mg PO DAILY tab 01/18/17 [Rx] Furosemide [Lasix] 40 mg PO BIDDIURETIC tab 01/18/17 [Rx] Ipratropium/Albuterol Neb [Duoneb] 3 ml IH [id number] inh 01/18/17 [Rx] Metoprolol XL (24 HR) Succ [Toprol Xl] 50 mg PO DAILY 01/18/17 [Rx] Vitamin B Complex/Vit C/Vit E [Stresstab] 1 each PO DAILY tab 01/18/17 [Rx] Nitroglycerin [Nitrostat] 0.4 mg SL Q5M PRN 01/20/17 [History] Ondansetron ODT [Zofran ODT] 4 mg SL Q6HR 5 Days #20 tab.rapdis 08/26/17 [Rx] Thiamine (B-1) [Vitamin B-1] 100 mg PO DAILY 30 Days #30 tablet 08/26/17 [Rx] Montelukast [Singulair] 10 mg PO DAILY 01/07/18 [History] Ranitidine HCl [Acid Cell Installer] 150 mg PO BID 01/07/18 [History] Gabapentin [Neurontin] 1,200 mg PO TID 3 Days #30 capsule 01/12/18 [Rx] HYDROcodone/Acet 7.5/325 mg [[place] 7.5-325 mg] 1 tab PO Q8H PRN 3 Days #10 tablet 01/12/18 [Rx] Potassium Chloride [K-Tab ER] 20 meq PO BID #0 01/12/18 [Rx] Allergies/Adverse Reactions: 3 Allergy/AdvReac Type Severity Reaction Status Date / Time azithromycin [From Zithromax] Allergy Rash Verified 08/23/17 09:52 - Respiratory Orders Oxygen / L per min (2-3L/min via NC) Smoking Cessation: Smoking cessation has been advised. For more information, call the [employer] Tobacco Quit Line at 4-075-UYOW-NOW. - Advance Directives Code Status: Full Code - Mobility Orders Ambulate - Rehabiliation Orders Rehab Potential: Fair Rehab Orders: ROM Exercises, Evaluation for Physical Therapy, Evaluation for Occupational Therapy - Diet Orders Cardiac (fluid restriction to 1.2L/day) CERTIFICATION: I certify that the transfer of the above named patient to an Extended Care Facility is necessary for the continuing treatment of the diagnosis listed. The above information is true and accurate reflection of patient's current condition. Confidential - Redisclosure prohibited without a patient's written consent.
== END 2018-01-12 18:16 | DRG 194 ==
LOC: 3BNU 14:40 → EMEROO 14:40 → 3BNU 18:04 → SUATTDRO 01-10 16:30
PROVIDERS: ADMIT Student in an Organized Health Care Education/Training Program; ATTEND Internal Medicine

== ENCOUNTER 2018-01-13 22:18 | Inpatient (IN) ==
[2018-01-13] MEDS ORDERED: Furosemide 40 MG/4 ML VIAL IVP ONE (22:22)
[2018-01-13] MEDS ORDERED: Nitroglycerin 0.4 MG TAB.SUBL SL STA (22:23)
--- NOTE | 2018-01-13 22:33 | Emergency Department Note ---
Disposition Clinical Impression: Hypercapnia, Acute exacerbation of chronic obstructive airways disease, Hypokalemia, Hypercapnic respiratory failure Respiratory failure with hypoxia Qualifiers: Chronicity: acute on chronic Qualified Code(s): J96.21 - Acute and chronic respiratory failure with hypoxia CHF exacerbation Qualifiers: Heart failure type: unspecified Qualified Code(s): I50.9 - Heart failure, unspecified Disposition: Admitted As Inpatient Condition: Serious Time of Disposition: 01:08 General Adult HPI - General Chief complaint: ED Shortness of Breath/Dyspnea Stated complaint: juhi Time Seen by Provider: 01/13/18 22:21 Source: EMS - History of Present Illness Pain Scale: 0 - Related Data Home Medications Medication Instructions Recorded Confirmed Atorvastatin [Lipitor] 40 mg PO HS 07/29/15 01/07/18 Sertraline [Zoloft] 200 mg PO QAM 07/29/15 01/07/18 Albuterol Sulfate [Albuterol 2 puff IH Q4HR PRN 10/25/15 01/07/18 Inhaler] Budesonide/Formoterol 160/4.5 2 puff IH BIDR 01/10/17 01/07/18 [Symbicort 160/4.5] Omeprazole [PriLOSEC] 40 mg PO DAILY 01/10/17 01/07/18 Oxygen 1 each .ROUTE AD 01/10/17 01/07/18 Nitroglycerin [Nitrostat] 0.4 mg SL Q5M PRN 01/20/17 01/07/18 Montelukast [Singulair] 10 mg PO DAILY 01/07/18 01/07/18 Ranitidine HCl [Acid Stippler] 150 mg PO BID 01/07/18 01/07/18 Previous Rx's Medication Instructions Recorded Fluticasone Propionate Nasal 2 spray NS DAILY 7 Days bottle 11/10/15 [Flonase] Folic Acid 1 mg PO DAILY tab 01/18/17 Furosemide [Lasix] 40 mg PO BIDDIURETIC tab 01/18/17 Ipratropium/Albuterol Neb [Duoneb] 3 ml IH [id number] inh 01/18/17 Metoprolol XL (24 HR) Succ [Toprol 50 mg PO DAILY 01/18/17 Xl] Vitamin B Complex/Vit C/Vit E 1 each PO DAILY tab 01/18/17 [Stresstab] Ondansetron ODT [Zofran ODT] 4 mg SL Q6HR 5 Days #20 tab.rapdis 08/26/17 Thiamine (B-1) [Vitamin B-1] 100 mg PO DAILY 30 Days #30 tablet 08/26/17 Gabapentin [Neurontin] 1,200 mg PO TID 3 Days #30 capsule 01/12/18 HYDROcodone/Acet 7.5/325 mg [[place] 1 tab PO Q8H PRN 3 Days #10 tablet 01/12/18 7.5-325 mg] Potassium Chloride [K-Tab ER] 20 meq PO BID #0 01/12/18 Allergies Allergy/AdvReac Type Severity Reaction Status Date / Time azithromycin [From Zithromax] Allergy Rash Verified 08/23/17 09:52 Past Medical History - Past Medical History Medical history: Reports: CHF, COPD, hypertension, renal disease, other Surgical history: Reports: other Psychiatric history: Reports: no psych history - Social History Smoking Status: Never smoker Smokeless Tobacco Status: No Alcohol use: Reports: none Drug use: Reports: none Physical Exam - General General appearance: alert, in no apparent distress Course Vital Signs Temperature 97.6 F 01/13/18 22:19 Pulse Rate 70 01/13/18 22:19 Respiratory Rate 24 01/13/18 22:19 Blood Pressure 126/99 01/13/18 22:19 O2 Sat by Pulse Oximetry 96 01/13/18 22:19 Temperature 97.6 F 01/13/18 22:19 Pulse Rate 65 01/14/18 00:02 Respiratory Rate 20 01/14/18 00:02 Blood Pressure 110/59 01/14/18 00:02 O2 Sat by Pulse Oximetry 100 01/14/18 00:02 Oxygen Delivery Oxygen Delivery Bipap Medical Decision Making - Lab Data Result diagrams: 01/13/18 22:35 01/13/18 22:35 Lab Results 01/13/18 01/13/18 01/13/18 Range/Units 22:27 22:35 22:35 WBC 8.8 D (4.3-11.1) K/mcL RBC 3.86 L (4.19-5.50) M/mcL Hgb 11.7 L (12.9-16.9) g/dL Hct 38.5 (37.5-50.1) % MCV 99.7 (83.0-100.0) fL MCH 30.3 (28.0-33.3) pg MCHC 30.4 L (31.6-35.5) g/dL RDW 13.3 (11.5-14.5) % Plt Count 174 (140-400) K/mcL MPV 10.2 (9.4-12.4) fL Immature Gran % 0.5 (0-4) % Seg Neutrophils % 73.2 % Lymphocytes % 14.3 % Monocytes % 8.8 % Eosinophils % 2.9 % Basophils % 0.3 % Neutrophils # 6.4 (1.6-8.9) K/mcL Lymphocytes # 1.3 (0.6-4.6) K/mcL Monocytes # 0.8 (0.0-1.3) K/mcL Eosinophils # 0.3 (0.0-0.6) K/mcL Basophils # 0.0 (0.0-0.2) K/mcL PT 12.0 (9.4-12.1) Seconds INR 1.1 APTT 37.1 H (26.0-36.0) Seconds Sample Site Art Line ABG pH 7.17 L* (7.32-7.45) pH Units ABG pCO2 122 H* (35-45) mmHg ABG pO2 94 (85-104) mmHg ABG HCO3 45 H (21-27) mEq/L ABG Total CO2 49 H (20-26) mEq/L ABG O2 Saturation 94 L (95-98) % ABG Base Excess 11 H (-2 to 3) mEq/L O2 Delivery Device Blood Gas Modality Inspired O2 32.0 (1-15=lpm [id number]=%) Sodium (136-145) mEq/L Potassium (3.5-5.1) mEq/L Chloride (98-107) mEq/L Carbon Dioxide (23-29) mEq/L BUN (8-23) mg/dL Creatinine (0.70-1.30) mg/dL Est GFR ( Amer) (> 60) Est GFR (Non-Af Amer) (> 60) BUN/Creatinine Ratio (6-26) Glucose (70-105) mg/dL Calculated Osmolality (280-300) Lactic Acid (0.5-2.2) mmol/L Calcium (8.6-10.3) mg/dL Troponin I (< 0.04) ng/mL B-Natriuretic Peptide (Less than 100) pg/mL TSH (0.340-5.600) mcIU/mL Urine Color (Yellow) Urine Clarity (Clear) Urine pH (5.0-8.0) pH Units Ur Specific Bells (1.010-1.025) Urine Protein (Neg-Trace) mg/dL Urine Glucose (UA) (Normal) mg/dL Urine Ketones (Negative) mg/dL Urine Blood (Negative) Urine Nitrite (Negative) Urine Bilirubin (Negative) Urine Urobilinogen (Normal) mg/dL Ur Leukocyte Esterase (Negative) Urine Microscopic RBC (0-3) per hpf Urine Microscopic WBC (0-3) per hpf Ur Squamous Epith Cells (None-Few) per lpf Urine Bacteria (None-Few) per hpf Hyaline Casts (None-Few) per lpf Ur Culture Indicated? (NO) 01/13/18 01/13/18 01/13/18 Range/Units 22:35 22:35 22:35 WBC (4.3-11.1) K/mcL RBC (4.19-5.50) M/mcL Hgb (12.9-16.9) g/dL Hct (37.5-50.1) % MCV (83.0-100.0) fL MCH (28.0-33.3) pg MCHC (31.6-35.5) g/dL RDW (11.5-14.5) % Plt Count (140-400) K/mcL MPV (9.4-12.4) fL Immature Gran % (0-4) % Seg Neutrophils % % Lymphocytes % % Monocytes % % Eosinophils % % Basophils % % Neutrophils # (1.6-8.9) K/mcL Lymphocytes # (0.6-4.6) K/mcL Monocytes # (0.0-1.3) K/mcL Eosinophils # (0.0-0.6) K/mcL Basophils # (0.0-0.2) K/mcL PT (9.4-12.1) Seconds INR APTT (26.0-36.0) Seconds Sample Site ABG pH (7.32-7.45) pH Units ABG pCO2 (35-45) mmHg ABG pO2 (85-104) mmHg ABG HCO3 (21-27) mEq/L ABG Total CO2 (20-26) mEq/L ABG O2 Saturation (95-98) % ABG Base Excess (-2 to 3) mEq/L O2 Delivery Device Blood Gas Modality Inspired O2 (1-15=lpm [id number]=%) Sodium 140 (136-145) mEq/L Potassium 3.2 L (3.5-5.1) mEq/L Chloride 97 L (98-107) mEq/L Carbon Dioxide 36 H (23-29) mEq/L BUN 35 H (8-23) mg/dL Creatinine 1.35 H (0.70-1.30) mg/dL Est GFR ( Amer) > 60 (> 60) Est GFR (Non-Af Amer) 54 L (> 60) BUN/Creatinine Ratio 26 (6-26) Glucose 146 H (70-105) mg/dL Calculated Osmolality 301 H (280-300) Lactic Acid 0.5 (0.5-2.2) mmol/L Calcium 8.9 (8.6-10.3) mg/dL Troponin I < 0.03 (< 0.04) ng/mL B-Natriuretic Peptide 201 H (Less than 100) pg/mL TSH 0.809 (0.340-5.600) mcIU/mL Urine Color (Yellow) Urine Clarity (Clear) Urine pH (5.0-8.0) pH Units Ur Specific Bells (1.010-1.025) Urine Protein (Neg-Trace) mg/dL Urine Glucose (UA) (Normal) mg/dL Urine Ketones (Negative) mg/dL Urine Blood (Negative) Urine Nitrite (Negative) Urine Bilirubin (Negative) Urine Urobilinogen (Normal) mg/dL Ur Leukocyte Esterase (Negative) Urine Microscopic RBC (0-3) per hpf Urine Microscopic WBC (0-3) per hpf Ur Squamous Epith Cells (None-Few) per lpf Urine Bacteria (None-Few) per hpf Hyaline Casts (None-Few) per lpf Ur Culture Indicated? (NO) 01/13/18 01/13/18 Range/Units 23:24 23:35 WBC (4.3-11.1) K/mcL RBC (4.19-5.50) M/mcL Hgb (12.9-16.9) g/dL Hct (37.5-50.1) % MCV (83.0-100.0) fL MCH (28.0-33.3) pg MCHC (31.6-35.5) g/dL RDW (11.5-14.5) % Plt Count (140-400) K/mcL MPV (9.4-12.4) fL Immature Gran % (0-4) % Seg Neutrophils % % Lymphocytes % % Monocytes % % Eosinophils % % Basophils % % Neutrophils # (1.6-8.9) K/mcL Lymphocytes # (0.6-4.6) K/mcL Monocytes # (0.0-1.3) K/mcL Eosinophils # (0.0-0.6) K/mcL Basophils # (0.0-0.2) K/mcL PT (9.4-12.1) Seconds INR APTT (26.0-36.0) Seconds Sample Site L Radial ABG pH 7.24 L (7.32-7.45) pH Units ABG pCO2 104 H* (35-45) mmHg ABG pO2 50 L* D (85-104) mmHg ABG HCO3 45 H (21-27) mEq/L ABG Total CO2 48 H (20-26) mEq/L ABG O2 Saturation 74 L (95-98) % ABG Base Excess 13 H (-2 to 3) mEq/L O2 Delivery Device BiPAP Blood Gas Modality NIV Inspired O2 28.0 (1-15=lpm [id number]=%) Sodium (136-145) mEq/L Potassium (3.5-5.1) mEq/L Chloride (98-107) mEq/L Carbon Dioxide (23-29) mEq/L BUN (8-23) mg/dL Creatinine (0.70-1.30) mg/dL Est GFR ( Amer) (> 60) Est GFR (Non-Af Amer) (> 60) BUN/Creatinine Ratio (6-26) Glucose (70-105) mg/dL Calculated Osmolality (280-300) Lactic Acid (0.5-2.2) mmol/L Calcium (8.6-10.3) mg/dL Troponin I (< 0.04) ng/mL B-Natriuretic Peptide (Less than 100) pg/mL TSH (0.340-5.600) mcIU/mL Urine Color Yellow (Yellow) Urine Clarity Clear (Clear) Urine pH 6.0 (5.0-8.0) pH Units Ur Specific Bells 1.011 (1.010-1.025) Urine Protein Trace (Neg-Trace) mg/dL Urine Glucose (UA) Normal (Normal) mg/dL Urine Ketones Negative (Negative) mg/dL Urine Blood Negative (Negative) Urine Nitrite Negative (Negative) Urine Bilirubin Negative (Negative) Urine Urobilinogen Normal (Normal) mg/dL Ur Leukocyte Esterase Negative (Negative) Urine Microscopic RBC 0-3 (0-3) per hpf Urine Microscopic WBC 0-3 (0-3) per hpf Ur Squamous Epith Cells Many H (None-Few) per lpf Urine Bacteria None Seen (None-Few) per hpf Hyaline Casts None Seen (None-Few) per lpf Ur Culture Indicated? NO (NO) Critical Care Time Critical Care Time: Yes Total Critical Care Time: 40 Attestation: Critical care performed: Time is exclusive of separately billable procedures. Time includes: direct patient care, patient reassessment, coordination of patient care, interpretation of data (laboratory data, radiology data, and respiratory data), review of patient's medical records, medical consultation and documentation of patient care. Procedures included in critical care time: Procedures excluded from critical care time: Attestation Statement - Attestation Attestation: I examined this patient and my medical decision-making was reviewed with the Resident Physician. I agree with the documented findings, disposition and treatment plan as described except to the extent set forth below. Patient presents to the ED with a chief complaint of altered mental status and hypoxia. He was found at the residential by EMS with a sat in the 60s. Patient discharged from here yesterday for acute decompensated heart failure. On examination he sitting up in bed. Looking around. Tachypneic. Pitting edema to bilateral lower extremities. Rales in bases. Makes eye contact but is not following basic commands. Plan. Altered mental status workup. Concern at this time for hypercapnic respiratory failure. Patient CO2 is 122. He is also acidotic. Trialing BiPAP at this time. We will reassess after next ABG. Patient more alert. Repeat ABG shows an improved CO2. He is tolerating BiPAP at this time. Chest x-ray stable. His been given Lasix. Solu-Medrol as well. We will admit.
--- NOTE | 2018-01-13 22:36 | Emergency Department Note ---
Disposition Clinical Impression: Hypercapnia, Acute exacerbation of chronic obstructive airways disease, Hypokalemia, Hypercapnic respiratory failure Respiratory failure with hypoxia Qualifiers: Chronicity: acute on chronic Qualified Code(s): J96.21 - Acute and chronic respiratory failure with hypoxia CHF exacerbation Qualifiers: Heart failure type: unspecified Qualified Code(s): I50.9 - Heart failure, unspecified Disposition: Admitted As Inpatient Condition: Serious Time of Disposition: 00:12 General Adult HPI - General Chief complaint: ED Shortness of Breath/Dyspnea Stated complaint: juhi Time Seen by Provider: 01/13/18 22:21 Source: EMS Mode of arrival: EMS Limitations: altered mental status Nursing Notes Reviewed: Yes Vital Signs Reviewed: Yes - History of Present Illness HPI Narrative: [facility] dysp[facility]. Just discharged from here 48 hours ago for CHF/COPD. Is normally A/Ox3 and has been altered for last day or so. Is supposed to be on oxygen [facility] but was found on room air with sats of 66%. Placed on O2 and came up to high 90's. Patient unable to answer any questions. Pain Scale: 0 - Related Data Home Medications Medication Instructions Recorded Confirmed Atorvastatin [Lipitor] 40 mg PO HS 07/29/15 01/07/18 Sertraline [Zoloft] 200 mg PO QAM 07/29/15 01/07/18 Albuterol Sulfate [Albuterol 2 puff IH Q4HR PRN 10/25/15 01/07/18 Inhaler] Budesonide/Formoterol 160/4.5 2 puff IH BIDR 01/10/17 01/07/18 [Symbicort 160/4.5] Omeprazole [PriLOSEC] 40 mg PO DAILY 01/10/17 01/07/18 Oxygen 1 each .ROUTE AD 01/10/17 01/07/18 Nitroglycerin [Nitrostat] 0.4 mg SL Q5M PRN 01/20/17 01/07/18 Montelukast [Singulair] 10 mg PO DAILY 01/07/18 01/07/18 Ranitidine HCl [Acid [place] Agent] 150 mg PO BID 01/07/18 01/07/18 Previous Rx's Medication Instructions Recorded Fluticasone Propionate Nasal 2 spray NS DAILY 7 Days bottle 11/10/15 [Flonase] Folic Acid 1 mg PO DAILY tab 01/18/17 Furosemide [Lasix] 40 mg PO BIDDIURETIC tab 01/18/17 Ipratropium/Albuterol Neb [Duoneb] 3 ml IH [id number] inh 01/18/17 Metoprolol XL (24 HR) Succ [Toprol 50 mg PO DAILY 01/18/17 Xl] Vitamin B Complex/Vit C/Vit E 1 each PO DAILY tab 01/18/17 [Stresstab] Ondansetron ODT [Zofran ODT] 4 mg SL Q6HR 5 Days #20 tab.rapdis 08/26/17 Thiamine (B-1) [Vitamin B-1] 100 mg PO DAILY 30 Days #30 tablet 08/26/17 Gabapentin [Neurontin] 1,200 mg PO TID 3 Days #30 capsule 01/12/18 HYDROcodone/Acet 7.5/325 mg [[place] 1 tab PO Q8H PRN 3 Days #10 tablet 01/12/18 7.5-325 mg] Potassium Chloride [K-Tab ER] 20 meq PO BID #0 01/12/18 Allergies Allergy/AdvReac Type Severity Reaction Status Date / Time azithromycin [From Zithromax] Allergy Rash Verified 08/23/17 09:52 Review of Systems: As reviewed in the HPI. All other systems reviewed are negative or normal. Past Medical History - Past Medical History Attestation: Yes The following information was validated with the patient. Source: old records reviewed Medical history: Reports: CHF, COPD, hypertension, renal disease, other Surgical history: Reports: other Psychiatric history: Reports: no psych history - Social History Smoking Status: Never smoker Smokeless Tobacco Status: No Alcohol use: Reports: none Drug use: Reports: none Physical Exam - General Limitations: no limitations General appearance: alert, lethargic - Head Head exam: atraumatic, normocephalic, normal inspection - Eye Eye exam: Present: normal appearance, PERRL, EOMI, other (exophthalmos) - ENT ENT exam: normal exam, normal oropharynx, mucous membranes moist, other (vomit or dried food on corner of mouth ) - Neck Neck exam: Present: normal inspection, full ROM, trachea midline - Chest Chest inspection: Present: normal inspection, symmetric chest wall rise - Respiratory Respiratory exam: Present: respiratory distress, other (rales b/l bases, tachypnic, shallow resp. ). Absent: normal lung sounds bilaterally - Cardiovascular Cardiovascular exam: Present: regular rate, normal rhythm, normal heart sounds - Abdominal Exam Abdominal exam: Present: soft, distention. Absent: tenderness, guarding - Male exam: Present: other (limited by body size ) - Extremities Exam Extremities exam: Present: normal capillary refill, pedal edema - Expanded Lower Extremity Exam Hip/Pelvis exam: Present: pelvis stable - Neurological Exam Neurological exam: Present: alert. Absent: oriented X3 - Expanded Neurological Exam Patient oriented to: Present: person. Absent: place, time Coma Scale Eye Opening: Spontaneous Coma Scale Motor Response: Obeys Commands Coma Scale Verbal Response: Confused Coma Scale Total: 14 - Skin Skin exam: Present: warm, dry, intact, normal color Course Course Narrative: suspecting acute hypercapnic resp failure. plan to get ABG, head CT, EKG, cxr, labs and admit. Will give NTG and lasix. - Reevaluation(s) Reevaluation #1: initial ABG acidotic and hypercapnic. Placed on BiPAP, given nitro and lasix. Will repeat gas in 1 hour repeat gas is improving, patient tolerating bipap well. Rest of workup looks ok , has chronic hypoK, will replace with 40 IV and admit to hospitalist service. accepted by Dr. Uriarte - 00:10 Vital Signs Temperature 97.6 F 01/13/18 22:19 Pulse Rate 70 01/13/18 22:19 Respiratory Rate 24 01/13/18 22:19 Blood Pressure 126/99 01/13/18 22:19 O2 Sat by Pulse Oximetry 96 01/13/18 22:19 Temperature 97.6 F 01/13/18 22:19 Pulse Rate 65 01/14/18 00:02 Respiratory Rate 20 01/14/18 00:02 Blood Pressure 110/59 01/14/18 00:02 O2 Sat by Pulse Oximetry 100 01/14/18 00:02 Oxygen Delivery Oxygen Delivery Bipap Medical Decision Making - Medical Records Medical records reviewed: Yes I reviewed the patient's medical records. - Lab Data Lab results reviewed: Yes I reviewed the patient's lab results. Result diagrams: 01/13/18 22:35 01/13/18 22:35 Lab Results 01/13/18 01/13/18 01/13/18 Range/Units 22:27 22:35 22:35 WBC 8.8 D (4.3-11.1) K/mcL RBC 3.86 L (4.19-5.50) M/mcL Hgb 11.7 L (12.9-16.9) g/dL Hct 38.5 (37.5-50.1) % MCV 99.7 (83.0-100.0) fL MCH 30.3 (28.0-33.3) pg MCHC 30.4 L (31.6-35.5) g/dL RDW 13.3 (11.5-14.5) % Plt Count 174 (140-400) K/mcL MPV 10.2 (9.4-12.4) fL Immature Gran % 0.5 (0-4) % Seg Neutrophils % 73.2 % Lymphocytes % 14.3 % Monocytes % 8.8 % Eosinophils % 2.9 % Basophils % 0.3 % Neutrophils # 6.4 (1.6-8.9) K/mcL Lymphocytes # 1.3 (0.6-4.6) K/mcL Monocytes # 0.8 (0.0-1.3) K/mcL Eosinophils # 0.3 (0.0-0.6) K/mcL Basophils # 0.0 (0.0-0.2) K/mcL PT 12.0 (9.4-12.1) Seconds INR 1.1 APTT 37.1 H (26.0-36.0) Seconds Sample Site Art Line ABG pH 7.17 L* (7.32-7.45) pH Units ABG pCO2 122 H* (35-45) mmHg ABG pO2 94 (85-104) mmHg ABG HCO3 45 H (21-27) mEq/L ABG Total CO2 49 H (20-26) mEq/L ABG O2 Saturation 94 L (95-98) % ABG Base Excess 11 H (-2 to 3) mEq/L O2 Delivery Device Blood Gas Modality Inspired O2 32.0 (1-15=lpm [id number]=%) Sodium (136-145) mEq/L Potassium (3.5-5.1) mEq/L Chloride (98-107) mEq/L Carbon Dioxide (23-29) mEq/L BUN (8-23) mg/dL Creatinine (0.70-1.30) mg/dL Est GFR ( Amer) (> 60) Est GFR (Non-Af Amer) (> 60) BUN/Creatinine Ratio (6-26) Glucose (70-105) mg/dL Calculated Osmolality (280-300) Lactic Acid (0.5-2.2) mmol/L Calcium (8.6-10.3) mg/dL Troponin I (< 0.04) ng/mL B-Natriuretic Peptide (Less than 100) pg/mL TSH (0.340-5.600) mcIU/mL Urine Color (Yellow) Urine Clarity (Clear) Urine pH (5.0-8.0) pH Units Ur Specific [place] (1.010-1.025) Urine Protein (Neg-Trace) mg/dL Urine Glucose (UA) (Normal) mg/dL Urine Ketones (Negative) mg/dL Urine Blood (Negative) Urine Nitrite (Negative) Urine Bilirubin (Negative) Urine Urobilinogen (Normal) mg/dL Ur Leukocyte Esterase (Negative) Urine Microscopic RBC (0-3) per hpf Urine Microscopic WBC (0-3) per hpf Ur Squamous Epith Cells (None-Few) per lpf Urine Bacteria (None-Few) per hpf Hyaline Casts (None-Few) per lpf Ur Culture Indicated? (NO) 01/13/18 01/13/18 01/13/18 Range/Units 22:35 22:35 22:35 WBC (4.3-11.1) K/mcL RBC (4.19-5.50) M/mcL Hgb (12.9-16.9) g/dL Hct (37.5-50.1) % MCV (83.0-100.0) fL MCH (28.0-33.3) pg MCHC (31.6-35.5) g/dL RDW (11.5-14.5) % Plt Count (140-400) K/mcL MPV (9.4-12.4) fL Immature Gran % (0-4) % Seg Neutrophils % % Lymphocytes % % Monocytes % % Eosinophils % % Basophils % % Neutrophils # (1.6-8.9) K/mcL Lymphocytes # (0.6-4.6) K/mcL Monocytes # (0.0-1.3) K/mcL Eosinophils # (0.0-0.6) K/mcL Basophils # (0.0-0.2) K/mcL PT (9.4-12.1) Seconds INR APTT (26.0-36.0) Seconds Sample Site ABG pH (7.32-7.45) pH Units ABG pCO2 (35-45) mmHg ABG pO2 (85-104) mmHg ABG HCO3 (21-27) mEq/L ABG Total CO2 (20-26) mEq/L ABG O2 Saturation (95-98) % ABG Base Excess (-2 to 3) mEq/L O2 Delivery Device Blood Gas Modality Inspired O2 (1-15=lpm [id number]=%) Sodium 140 (136-145) mEq/L Potassium 3.2 L (3.5-5.1) mEq/L Chloride 97 L (98-107) mEq/L Carbon Dioxide 36 H (23-29) mEq/L BUN 35 H (8-23) mg/dL Creatinine 1.35 H (0.70-1.30) mg/dL Est GFR ( Amer) > 60 (> 60) Est GFR (Non-Af Amer) 54 L (> 60) BUN/Creatinine Ratio 26 (6-26) Glucose 146 H (70-105) mg/dL Calculated Osmolality 301 H (280-300) Lactic Acid 0.5 (0.5-2.2) mmol/L Calcium 8.9 (8.6-10.3) mg/dL Troponin I < 0.03 (< 0.04) ng/mL B-Natriuretic Peptide 201 H (Less than 100) pg/mL TSH 0.809 (0.340-5.600) mcIU/mL Urine Color (Yellow) Urine Clarity (Clear) Urine pH (5.0-8.0) pH Units Ur Specific [place] (1.010-1.025) Urine Protein (Neg-Trace) mg/dL Urine Glucose (UA) (Normal) mg/dL Urine Ketones (Negative) mg/dL Urine Blood (Negative) Urine Nitrite (Negative) Urine Bilirubin (Negative) Urine Urobilinogen (Normal) mg/dL Ur Leukocyte Esterase (Negative) Urine Microscopic RBC (0-3) per hpf Urine Microscopic WBC (0-3) per hpf Ur Squamous Epith Cells (None-Few) per lpf Urine Bacteria (None-Few) per hpf Hyaline Casts (None-Few) per lpf Ur Culture Indicated? (NO) 01/13/18 01/13/18 Range/Units 23:24 23:35 WBC (4.3-11.1) K/mcL RBC (4.19-5.50) M/mcL Hgb (12.9-16.9) g/dL Hct (37.5-50.1) % MCV (83.0-100.0) fL MCH (28.0-33.3) pg MCHC (31.6-35.5) g/dL RDW (11.5-14.5) % Plt Count (140-400) K/mcL MPV (9.4-12.4) fL Immature Gran % (0-4) % Seg Neutrophils % % Lymphocytes % % Monocytes % % Eosinophils % % Basophils % % Neutrophils # (1.6-8.9) K/mcL Lymphocytes # (0.6-4.6) K/mcL Monocytes # (0.0-1.3) K/mcL Eosinophils # (0.0-0.6) K/mcL Basophils # (0.0-0.2) K/mcL PT (9.4-12.1) Seconds INR APTT (26.0-36.0) Seconds Sample Site L Radial ABG pH 7.24 L (7.32-7.45) pH Units ABG pCO2 104 H* (35-45) mmHg ABG pO2 50 L* D (85-104) mmHg ABG HCO3 45 H (21-27) mEq/L ABG Total CO2 48 H (20-26) mEq/L ABG O2 Saturation 74 L (95-98) % ABG Base Excess 13 H (-2 to 3) mEq/L O2 Delivery Device BiPAP Blood Gas Modality NIV Inspired O2 28.0 (1-15=lpm [id number]=%) Sodium (136-145) mEq/L Potassium (3.5-5.1) mEq/L Chloride (98-107) mEq/L Carbon Dioxide (23-29) mEq/L BUN (8-23) mg/dL Creatinine (0.70-1.30) mg/dL Est GFR ( Amer) (> 60) Est GFR (Non-Af Amer) (> 60) BUN/Creatinine Ratio (6-26) Glucose (70-105) mg/dL Calculated Osmolality (280-300) Lactic Acid (0.5-2.2) mmol/L Calcium (8.6-10.3) mg/dL Troponin I (< 0.04) ng/mL B-Natriuretic Peptide (Less than 100) pg/mL TSH (0.340-5.600) mcIU/mL Urine Color Yellow (Yellow) Urine Clarity Clear (Clear) Urine pH 6.0 (5.0-8.0) pH Units Ur Specific [place] 1.011 (1.010-1.025) Urine Protein Trace (Neg-Trace) mg/dL Urine Glucose (UA) Normal (Normal) mg/dL Urine Ketones Negative (Negative) mg/dL Urine Blood Negative (Negative) Urine Nitrite Negative (Negative) Urine Bilirubin Negative (Negative) Urine Urobilinogen Normal (Normal) mg/dL Ur Leukocyte Esterase Negative (Negative) Urine Microscopic RBC 0-3 (0-3) per hpf Urine Microscopic WBC 0-3 (0-3) per hpf Ur Squamous Epith Cells Many H (None-Few) per lpf Urine Bacteria None Seen (None-Few) per hpf Hyaline Casts None Seen (None-Few) per lpf Ur Culture Indicated? NO (NO) - Radiology Data Radiology results reviewed: Yes I reviewed the patient's radiology results. - EKG Data EKG #1 EKG attestation: Yes I reviewed and interpreted this EKG. EKG results narrative: Sinus rhythm with arrhythmia, rate 74, JEAN MARIE 169, QRS 121, QTc 409, normal axis, no acute ischemic changes Critical Care Time Critical Care Time: Yes Total Critical Care Time: 30 Attestation: independent of procedures
[2018-01-13 22:38] LABS: ABG Base Excess 11 mEq/L (-2 to 3); ABG HCO3 45 mEq/L (21-27); ABG Oxygen Saturation 94 % (95-98); ABG PCO2 122 mmHg (35-45); ABG PH 7.17 pH Units (7.32-7.45); ABG PO2 94 mmHg (85-104); ABG TCO2 49 mEq/L (20-26)
[2018-01-13 22:49] LABS: Basophils % 0.3 %; Eosinophils # 0.3 K/mcL (0.0-0.6); Eosinophils % 2.9 %; Hematocrit 38.5 % (37.5-50.1); Hemoglobin 11.7 g/dL (12.9-16.9); Immature Granulocytes % 0.5 % (0-4); Lymphocytes # 1.3 K/mcL (0.6-4.6); Lymphocytes % 14.3 %; Mean Corpuscular HGB Conc 30.4 g/dL (31.6-35.5); Mean Corpuscular Hemoglobin 30.3 pg (28.0-33.3); Mean Corpuscular Volume 99.7 fL (83.0-100.0); Mean Platelet Volume 10.2 fL (9.4-12.4); Monocytes # 0.8 K/mcL (0.0-1.3); Monocytes % 8.8 %; Neutrophils # 6.4 K/mcL (1.6-8.9); Platelet Count 174 K/mcL (140-400); Red Blood Count 3.86 M/mcL (4.19-5.50); Red Cell Distribution Width 13.3 % (11.5-14.5); Segmented Neutrophils % 73.2 %
[2018-01-13 22:58] LABS: INR 1.1
[2018-01-13] MEDS ORDERED: methylPREDNISolone 125 MG/2 ML VIAL IVP ONE (22:58)
[2018-01-13 23:01] LABS: Activated Partial Thrombo Time 37.1 Seconds (26.0-36.0)
[2018-01-13 23:10] LABS: BUN/Creatinine Ratio 26 (6-26); Blood Urea Nitrogen 35 mg/dL (8-23); Calcium 8.9 mg/dL (8.6-10.3); Carbon Dioxide 36 mEq/L (23-29); Chloride 97 mEq/L (98-107); Glucose 146 mg/dL (70-105); Osmolality,Calculated 301 (280-300); Potassium 3.2 mEq/L (3.5-5.1); Sodium 140 mEq/L (136-145); Troponin I < 0.03 ng/mL (< 0.04); eGFR For Non-African Americans 54 (> 60)
[2018-01-13 23:24] LABS: Thyroid Stimulating Hormone 0.809 mcIU/mL (0.340-5.600)
[2018-01-13 23:40] LABS: Bilirubin,Urine Negative (Negative); Blood,Urine Negative (Negative); Clarity,Urine Clear (Clear); Color,Urine Yellow (Yellow); Glucose,Urine (UA) Normal (Normal); Ketones,Urine Negative (Negative); Leukocyte Esterase,Urine Negative (Negative); Nitrite,Urine Negative (Negative); Protein,Urine Trace mg/dL (Neg-Trace); Specific Gravity,Urine 1.011 (1.010-1.025); Urobilinogen,Urine Normal (Normal)
[2018-01-13 23:42] LABS: Bacteria,Urine None Seen per hpf (None-Few); Hyaline Casts,Urine None Seen per lpf (None-Few); RBC,Urine 0-3 per hpf (0-3); Squamous Epithelial Cell,Urine Many per lpf (None-Few); WBC,Urine 0-3 per hpf (0-3)
[2018-01-13 23:43] LABS: ABG Base Excess 13 mEq/L (-2 to 3); ABG HCO3 45 mEq/L (21-27); ABG Oxygen Saturation 74 % (95-98); ABG PCO2 104 mmHg (35-45); ABG PH 7.24 pH Units (7.32-7.45); ABG PO2 50 mmHg (85-104); ABG TCO2 48 mEq/L (20-26); Blood Gas Modality NIV
[2018-01-14] MEDS ORDERED: Potassium Chloride 40 MEQ, Lidocaine 1% 2 ML in D5% in Water 500 ML IVPB ONE (00:08)
--- NOTE | 2018-01-14 03:06 | Internal Med History&Physical ---
<Gail Hercules - Last Filed: 01/14/18 03:20> Date of Encounter: 01/14/18 Time of Encounter: 03:00 Internal Medicine - H&P: HPI Chief complaint: Altered mental status Admitted From: Emergency Dept Plans for Post Hospital Care: Transfer Intermediate Facility History of present illness: Mr. Dumas is a 62 year old male with past medical history of CHF, COPD, hypertension who [facility] due to hypoxia and altered mental status. The history is taken from medical records since the patient is unable to answer the questions in there is no family at bedside. According to EMS the patient was found to be hypoxic with oxygen saturation in the 60s sitting on room air and once placed on oxygen saturation went to the 90s. Th e [facility] called EMS since the patient had been altered during the day with normal baseline of A&Ox3. Of note , he was recently discharged on 01/12/2018 for CHF exacerbation and sent to [facility]ent[facility]. Per penitentiary records he is a full code. -In the ED ABG demonstrated hypercapnic respiratory failure pH 7.17/ CO2 122/ O2 94. -Chest x-ray demonstrated bilateral perihilar infiltrates with right pleural effusion that is stable compared to previous exam. Elevated left hemidiaphragm with dilated splenic flexure: measuring up to 10 cm in diameter. -Head CT shows no acute intracranial abnormality. -In the ED he was given Lasix IV, Solu-Medrol, nitroglycerin, potassium 40 mg. He was placed on BiPAP and repeat ABG had shown improvement. Blood cultures were taken. Past Med Surg Social Fam HX - Past Medical History Source: old records reviewed Medical history: CHF, COPD, hypertension, renal disease, other Additional medical history: POOR HISTORIAN Psychiatric history: no psych history - Past Surgical History Surgical History: other Additional surgical history: Tonsilectomy - Social History Smoking Status: Never smoker Smokeless Tobacco Status: No Alcohol use: none Drug use: none - Family History Mother History Unknown: Yes Living Status: Hx Family Cardiac Disorders: Yes Hx Family Respiratory Disorders: No Hx Family Cancer: No Hx Family GI Disorders: No Hx Family Endocrine Disorder: No Hx Family Neuromuscular Disorders: No Hx Family Neurologic Disorders: No Hx Family HEENT Disorders: No Hx Family Autoimmune Disorders: No Father History Unknown: Yes Living Status: Hx Family Cardiac Disorders: No Hx Family Respiratory Disorders: No Hx Family Cancer: No Hx Family GI Disorders: No Hx Family Endocrine Disorder: No Hx Family Neuromuscular Disorders: No (ALS) Hx Family Neurologic Disorders: No Hx Family HEENT Disorders: No Hx Family Autoimmune Disorders: No Internal Medicine - H&P: Meds Atorvastatin [Lipitor] 40 mg PO HS 07/29/15 [History] Sertraline [Zoloft] 200 mg PO QAM 07/29/15 [History] Albuterol Sulfate [Albuterol Inhaler] 2 puff IH Q4HR PRN 10/25/15 [History] Fluticasone Propionate Nasal [Flonase] 2 spray NS DAILY 7 Days bottle 11/10/15 [Rx] Budesonide/Formoterol 160/4.5 [Symbicort 160/4.5] 2 puff IH BIDR 01/10/17 [ History] Omeprazole [PriLOSEC] 40 mg PO DAILY 01/10/17 [History] Oxygen 1 each .ROUTE AD 01/10/17 [History] Folic Acid 1 mg PO DAILY tab 01/18/17 [Rx] Furosemide [Lasix] 40 mg PO BIDDIURETIC tab 01/18/17 [Rx] Ipratropium/Albuterol Neb [Duoneb] 3 ml IH [id number] inh 01/18/17 [Rx] Metoprolol XL (24 HR) Succ [Toprol Xl] 50 mg PO DAILY 01/18/17 [Rx] Vitamin B Complex/Vit C/Vit E [Stresstab] 1 each PO DAILY tab 01/18/17 [Rx] Nitroglycerin [Nitrostat] 0.4 mg SL Q5M PRN 01/20/17 [History] Ondansetron ODT [Zofran ODT] 4 mg SL Q6HR 5 Days #20 tab.rapdis 08/26/17 [Rx] Thiamine (B-1) [Vitamin B-1] 100 mg PO DAILY 30 Days #30 tablet 08/26/17 [Rx] Montelukast [Singulair] 10 mg PO DAILY 01/07/18 [History] Ranitidine HCl [Acid Inspector Bicycle] 150 mg PO BID 01/07/18 [History] Gabapentin [Neurontin] 1,200 mg PO TID 3 Days #30 capsule 01/12/18 [Rx] HYDROcodone/Acet 7.5/325 mg [[place] 7.5-325 mg] 1 tab PO Q8H PRN 3 Days #10 tablet 01/12/18 [Rx] Potassium Chloride [K-Tab ER] 20 meq PO BID #0 01/12/18 [Rx] 3 Allergy/AdvReac Type Severity Reaction Status Date / Time azithromycin [From Zithromax] Allergy Rash Verified 08/23/17 09:52 ROS unobtainable: other (Patient sleeping on BiPAP) All Systems PM: A 10-system review of systems was performed and is negative for pertinent findings except as documented above in the HPI. - Constitutional Vitals: Temp Pulse Resp BP Pulse Ox 97.2 F L 62 20 130/61 100 01/14/18 01:51 01/14/18 01:51 01/14/18 01:51 01/14/18 01:51 01/14/18 01:51 General appearance: Present: no acute distress, obese - Head Head exam: Present: atraumatic, normal inspection - Eye Eye exam: Present: normal appearance, PERRL, conjuntiva pink. Absent: scleral icterus - Neck Neck exam general surgery: Present: trachea midline - Respiratory Respiratory exam: Present: rales (Bilateral lower lobes). Absent: rhonchi, wheezes - Cardiovascular Cardiovascular exam: Present: RRR, +S1, +S2. Absent: systolic murmur - GI/Abdominal GI/Abdominal exam: Present: distended, normal bowel sounds, soft. Absent: firm - Extremities Exam Extremities exam: Present: normal inspection, pedal edema, radial pulses palpable and symmetrical Additional comments: Bilateral lower extremity edema, no erythema - Neurological Exam Neurological exam: Absent: facial droop - Skin Skin exam: Present: dry, intact Internal Med - H&P Results - Labs CBC & Chem 7: 01/13/18 22:35 01/13/18 22:35 - Assessment and plan (1) Acute respiratory failure with hypoxia and hypercapnia Current Visit: No Status: Resolved Assessment and plan: Acute respiratory failure with hypoxia and hypercapnia likely secondary to noncompliance with supplemental oxygen and CHF exacerbation. -Currently on BiPAP with SpO2 100%, no acute respiratory distress -Initial ABG pH 7.17/ CO2 122/ HCO3 36 . hypercapnic respiratory failure -repeat ABG pH 7.24/ CO2 104/ HCO3 35. Improved -Chest x-ray demonstrated bilateral perihilar infiltrates with right pleural effusion that is stable compared to previous exam. Elevated left hemidiaphragm with dilated splenic flexure: measuring up to 10 cm in diameter. -Head CT shows no acute intracranial abnormality. -Continue BiPAP and/or nasal cannula -repeat ABG -continue diuresis -blood cultures pending (2) Altered mental status Current Visit: No Status: Resolved Assessment and plan: Likely secondary to hypercapnia and hypoxia respiratory failure. He was found to be on room air with oxygen saturation in the 60s, when he was supposed to be on supplemental oxygen. Patient was reported by [facility] staff to have altered mental status as compared to is normal baseline of alert and oriented times 3. Upon my examination he is sleeping on the BiPAP. Qualifiers: Altered mental status type: delirium Qualified Code(s): R41.0 - Disorientation, unspecified (3) Hypokalemia Current Visit: Yes Status: Acute Assessment and plan: Hypokalemia. Potassium 3.2 Supplemented in the ED. -Will monitor potassium with repeat BMP -will check magnesium -will supplement potassium as needed (4) Anemia Current Visit: No Status: Acute Assessment and plan: Anemia likely of chronic disease. Hemoglobin 11.7 (he is at baseline), MCV 99.7 no obvious active bleeding -will continue to monitor Qualifiers: Anemia type: unspecified type Qualified Code(s): D64.9 - Anemia, unspecified (5) COPD (chronic obstructive pulmonary disease) Current Visit: No Status: Chronic Assessment and plan: History of COPD on oxygen. Home medications of Symbicort, duoneb -continue Symbicort -scheduled duonebs -continue supplemental oxygen such as BiPAP or nasal cannula Qualifiers: COPD type: unspecified COPD Qualified Code(s): J44.9 - Chronic obstructive pulmonary disease, unspecified (6) Essential hypertension Current Visit: No Status: Chronic Assessment and plan: History of hypertension taking Toprol BP stable -continue home medication (7) Obstructive sleep apnea Current Visit: No Status: Suspected Assessment and plan: History of obstructive sleep apnea. Will have BiPAP at night (8) Morbid obesity with BMI of 50.0-59.9, adult Current Visit: No Status: Chronic Assessment and plan: Needs lifestyle changes PT/OT ordered (9) DVT prophylaxis Current Visit: No Status: Acute Assessment and plan: Heparin SQ (10) CHF exacerbation Current Visit: Yes Status: Acute Assessment and plan: CHF exacerbation likely continuous since discharge for CHF exacerbation on 2017. -Chest x-ray demonstrated bilateral perihilar infiltrates with right pleural effusion that is stable compared to previous exam. Elevated left hemidiaphragm with dilated splenic flexure: measuring up to 10 cm in diameter. -BNP 201 -01/08/2018 TTE was technically suboptimal due to poor echocardiographic windows however grossly normal LV systolic function, RV size and function not well evaluated, valves not well evaluated. -Rales in bases of lungs bilateral with lower extremity edema bilaterally -Continue IV Lasix 40 mg b.i.d. -continue supplemental oxygen -daily weights -fluid restrictive diet of 1500cc per day -monitor I&O Qualifiers: Heart failure type: unspecified Qualified Code(s): I50.9 - Heart failure, unspecified - Time Spent With Patient Total time spent is greater than 50% in coordination of care (as documented) at patient's floor/unit and/or counseling patient: <Gideon Bills P - Last Filed: 01/14/18 06:03> Date of Encounter: 01/14/18 Internal Medicine - H&P: HPI History of present illness: Mr. Dumas is a 62 year old male All Systems PM: A 10-system review of systems was performed and is negative for pertinent findings except as documented above in the HPI. - Constitutional Vitals: Temp Pulse Resp BP Pulse Ox 97.2 F L 56 16 124/53 10 01/14/18 01:51 01/14/18 05:53 01/14/18 05:53 01/14/18 05:53 01/14/18 05:53 Internal Med - H&P Results - Labs CBC & Chem 7: 01/14/18 03:44 01/14/18 03:44 Labs: Short CBC 01/14/18 Range/Units 03:44 WBC 7.5 (4.3-11.1) K/mcL Hgb 11.2 L (12.9-16.9) g/dL Hct 37.6 (37.5-50.1) % Plt Count 135 L (140-400) K/mcL Neutrophils # 6.5 (1.6-8.9) K/mcL BMP 01/14/18 03:44 Sodium 138 Potassium 3.3 L Chloride 96 L Carbon Dioxide 35 H BUN 35 H Creatinine 1.22 Glucose 138 H Calcium 8.9 - ABG Interpretation ABG results: 01/14/18 04:41 ABG pH 7.21 L ABG pCO2 115 H* ABG pO2 147 H D ABG HCO3 46 H ABG Total CO2 49 H ABG O2 Saturation 98 ABG Base Excess 13 H - Attending Attestation I have seen patient and performed my own history and physical examination. I have discussed with case with the admitting resident, and I agree with her assessment and plan of care as documented in her H&P. Briefly, patient admitted for acute on chronic respiratory failure with hypercapnia, likely secondary to supplemental oxygen/BiPAP non-compliance and acute exacerbation of CHF. Patient admitted inpatient with telemetry. Will continue BiPAP and monitor ABG for improvement. Continue diuresis with lasix IV 40 mg BID. Strict I&Os and daily weights. Wean off BiPAP with continual improvement of hypercapnia. Start fluid restriction. Repleted potassium. Scheduled duonebs. Recheck labwork in AM. - Assessment and plan (1) DVT prophylaxis Current Visit: No Status: Acute (2) Morbid obesity with BMI of 50.0-59.9, adult Current Visit: No Status: Chronic (3) Altered mental status Current Visit: No Status: Resolved Qualifiers: Altered mental status type: delirium Qualified Code(s): R41.0 - Disorientation, unspecified (4) COPD (chronic obstructive pulmonary disease) Current Visit: No Status: Chronic Qualifiers: COPD type: unspecified COPD Qualified Code(s): J44.9 - Chronic obstructive pulmonary disease, unspecified (5) Obstructive sleep apnea Current Visit: No Status: Suspected (6) Anemia Current Visit: No Status: Acute Qualifiers: Anemia type: unspecified type Qualified Code(s): D64.9 - Anemia, unspecified (7) Acute respiratory failure with hypoxia and hypercapnia Current Visit: No Status: Resolved (8) Hypokalemia Current Visit: Yes Status: Acute (9) Essential hypertension Current Visit: No Status: Chronic (10) CHF exacerbation Current Visit: Yes Status: Acute Qualifiers: Heart failure type: unspecified Qualified Code(s): I50.9 - Heart failure, unspecified - Time Spent With Patient Total time spent is greater than 50% in coordination of care (as documented) at patient's floor/unit and/or counseling patient:
[2018-01-14] MEDS ORDERED: Naloxone 0.4 MG/ML INJ IVP PRN (03:08)
[2018-01-14] MEDS: Ipratropium/Albuterol Neb 3 ML IH SCH ×4 (03:56→21:40)
[2018-01-14 04:09] LABS: Basophils % 0.1 %; Eosinophils % 0.4 %; Hematocrit 37.6 % (37.5-50.1); Hemoglobin 11.2 g/dL (12.9-16.9); Immature Granulocytes % 0.5 % (0-4); Lymphocytes # 0.7 K/mcL (0.6-4.6); Lymphocytes % 9.5 %; Mean Corpuscular HGB Conc 29.8 g/dL (31.6-35.5); Mean Corpuscular Hemoglobin 29.6 pg (28.0-33.3); Mean Corpuscular Volume 99.2 fL (83.0-100.0); Mean Platelet Volume 10.3 fL (9.4-12.4); Monocytes # 0.2 K/mcL (0.0-1.3); Monocytes % 2.5 %; Neutrophils # 6.5 K/mcL (1.6-8.9); Platelet Count 135 K/mcL (140-400); Red Blood Count 3.79 M/mcL (4.19-5.50); Red Cell Distribution Width 13.2 % (11.5-14.5)
[2018-01-14 04:23] LABS: BUN/Creatinine Ratio 29 (6-26); Blood Urea Nitrogen 35 mg/dL (8-23); Calcium 8.9 mg/dL (8.6-10.3); Carbon Dioxide 35 mEq/L (23-29); Chloride 96 mEq/L (98-107); Glucose 138 mg/dL (70-105); Magnesium 2.4 mg/dL (1.6-2.6); Osmolality,Calculated 296 (280-300); Potassium 3.3 mEq/L (3.5-5.1); Sodium 138 mEq/L (136-145); eGFR For Non-African Americans > 60 (> 60)
[2018-01-14 04:44] LABS: ABG Base Excess 13 mEq/L (-2 to 3); ABG HCO3 46 mEq/L (21-27); ABG Oxygen Saturation 98 % (95-98); ABG PCO2 115 mmHg (35-45); ABG PH 7.21 pH Units (7.32-7.45); ABG PO2 147 mmHg (85-104); ABG TCO2 49 mEq/L (20-26); Blood Gas Modality AVAPS; Blood Gas PEEP 10 cm H2O; Blood Gas VT 600 cc
[2018-01-14] MEDS ORDERED: Furosemide 40 MG/4 ML VIAL IVP SCH ×2 (04:47→09:00)
[2018-01-14] MEDS: *HR* Heparin 5,000 UNIT/ML VIAL SQ SCH ×3 (04:59→23:29)
[2018-01-14 08:21] LABS: ABG Base Excess 14 mEq/L (-2 to 3); ABG HCO3 44 mEq/L (21-27); ABG Oxygen Saturation 96 % (95-98); ABG PCO2 81 mmHg (35-45); ABG PH 7.34 pH Units (7.32-7.45); ABG PO2 94 mmHg (85-104); ABG TCO2 46 mEq/L (20-26); Blood Gas Modality AVAPS; Blood Gas PEEP 10 cm H2O; Blood Gas Pressure Support 15 cm H2O; Blood Gas Respiration Rate 14; Blood Gas VT 600 cc
[2018-01-14 08:34] LABS: BUN/Creatinine Ratio 24 (6-26); Blood Urea Nitrogen 33 mg/dL (8-23); Calcium 9.1 mg/dL (8.6-10.3); Carbon Dioxide 39 mEq/L (23-29); Chloride 96 mEq/L (98-107); Glucose 147 mg/dL (70-105); Osmolality,Calculated 304 (280-300); Potassium 3.6 mEq/L (3.5-5.1); Sodium 142 mEq/L (136-145); eGFR For Non-African Americans 53 (> 60)
[2018-01-14] MEDS: Metoprolol XL (24 HR) Succ 50 MG TAB.ER.24H PO SCH (09:09)
--- NOTE | 2018-01-14 09:43 | Pulmonology Consult Note ---
<Jan Bowens W - Last Filed: 01/14/18 10:35> Date of Encounter: 01/14/18 Medications and Allergies Atorvastatin [Lipitor] 40 mg PO HS 07/29/15 [History] Sertraline [Zoloft] 200 mg PO QAM 07/29/15 [History] Albuterol Sulfate [Albuterol Inhaler] 2 puff IH Q4HR PRN 10/25/15 [History] Fluticasone Propionate Nasal [Flonase] 2 spray NS DAILY 7 Days bottle 11/10/15 [Rx] Budesonide/Formoterol 160/4.5 [Symbicort 160/4.5] 2 puff IH BIDR 01/10/17 [ History] Omeprazole [PriLOSEC] 40 mg PO DAILY 01/10/17 [History] Oxygen 1 each .ROUTE AD 01/10/17 [History] Folic Acid 1 mg PO DAILY tab 01/18/17 [Rx] Furosemide [Lasix] 40 mg PO BIDDIURETIC tab 01/18/17 [Rx] Ipratropium/Albuterol Neb [Duoneb] 3 ml IH [id number] inh 01/18/17 [Rx] Metoprolol XL (24 HR) Succ [Toprol Xl] 50 mg PO DAILY 01/18/17 [Rx] Vitamin B Complex/Vit C/Vit E [Stresstab] 1 each PO DAILY tab 01/18/17 [Rx] Nitroglycerin [Nitrostat] 0.4 mg SL Q5M PRN 01/20/17 [History] Thiamine (B-1) [Vitamin B-1] 100 mg PO DAILY 30 Days #30 tablet 08/26/17 [Rx] Montelukast [Singulair] 10 mg PO DAILY 01/07/18 [History] Ranitidine HCl [Acid Screw Machine Tool Setter] 150 mg PO BID 01/07/18 [History] Gabapentin [Neurontin] 1,200 mg PO TID 3 Days #30 capsule 01/12/18 [Rx] HYDROcodone/Acet 7.5/325 mg [[place] 7.5-325 mg] 1 tab PO Q8H PRN 3 Days #10 tablet 01/12/18 [Rx] Potassium Chloride [K-Tab ER] 20 meq PO BID #0 01/12/18 [Rx] Guaifenesin [Mucinex] 600 mg PO BID 01/14/18 [History] Ondansetron ODT [Zofran ODT] 4 mg SL Q6HR PRN 01/14/18 [History] Polyethylene Glycol 3350 [MiraLAX] 17 gm PO DAILY 01/14/18 [History] 3 Allergy/AdvReac Type Severity Reaction Status Date / Time azithromycin [From Zithromax] Allergy Rash Verified 08/23/17 09:52 All Systems: The remainder of the systems were reviewed and are negative Physical Examination Vital Signs: Vital Signs, Last 4 Hours Temp Pulse Resp BP Pulse Ox 01/14/18 09:00 52 20 108/81 95 01/14/18 08:30 60 01/14/18 08:00 97.7 F 60 21 105/75 100 Ventilator Settings Ventilator Settings: Ventilator Settings, Last 8 Hours Ventilator Tidal Volume 600 Setting Results - Laboratory Findings CBC and BMP: 01/14/18 03:44 01/14/18 07:41 ABG ABG pH 7.34 pH Units (7.32-7.45) D 01/14/18 08:18 ABG pCO2 81 mmHg (35-45) H* D 01/14/18 08:18 ABG pO2 94 mmHg (85-104) D 01/14/18 08:18 ABG O2 Saturation 96 % (95-98) 01/14/18 08:18 PT/INR, D-dimer PT 12.0 Seconds (9.4-12.1) 01/13/18 22:35 Abnormal lab findings: Abnormal lab results RBC 3.79 M/mcL (4.19-5.50) L 01/14/18 03:44 Hgb 11.2 g/dL (12.9-16.9) L 01/14/18 03:44 MCHC 29.8 g/dL (31.6-35.5) L 01/14/18 03:44 Plt Count 135 K/mcL (140-400) L 01/14/18 03:44 APTT 37.1 Seconds (26.0-36.0) H 01/13/18 22:35 ABG pCO2 81 mmHg (35-45) H* D 01/14/18 08:18 ABG HCO3 44 mEq/L (21-27) H 01/14/18 08:18 ABG Total CO2 46 mEq/L (20-26) H 01/14/18 08:18 ABG Base Excess 14 mEq/L (-2 to 3) H 01/14/18 08:18 Chloride 96 mEq/L (98-107) L 01/14/18 07:41 Carbon Dioxide 39 mEq/L (23-29) H 01/14/18 07:41 BUN 33 mg/dL (8-23) H 01/14/18 07:41 Creatinine 1.36 mg/dL (0.70-1.30) H 01/14/18 07:41 Est GFR (Non-Af Amer) 53 (> 60) L 01/14/18 07:41 Glucose 147 mg/dL (70-105) H 01/14/18 07:41 POC Glucose 128 mg/dL (70-99) H 01/14/18 01:13 Calculated Osmolality 304 (280-300) H 01/14/18 07:41 B-Natriuretic Peptide 201 pg/mL (Less than 100) H 01/13/18 22:35 Ur Squamous Epith Cells Many per lpf (None-Few) H 01/13/18 23:24 - Clinical Findings Intake & Output: Intake & Output 01/13/18 01/14/18 01/14/18 23:59 07:59 15:59 Intake Total 200 / 200 Output Total 500 / 500 Balance -300 / -300 Consult Discharge Plan - Plan Referrals: NONE,PCP [Primary Care Provider] - - Attending Attestation I examined this patient and my medical decision-making was reviewed with the Resident Physician. I agree with the documented findings, disposition and treatment plan as described except to the extent set forth below. We independently had [id number] contact with the patient Patient seen and examined at bedside Labs, radiology, chart personally reviewed. Management was reviewed during multidisciplinary critical care rounds. MEDICAL INSURANCE CLAIMS SPECIALIST: The patient has underlying dementia and has presented with acute encephalopathy which is likely related to respiratory failure he is much more awake and alert no able to follow commands but remains slightly confused however this may be nearing his baseline there is no focal neurological deficit and the head CT is without acute process Pulm: Acute on chronic hypoxic hypercapnic respiratory failure secondary to hydrostatic pulmonary edema complicated by restrictive and obstructive physiology patient has underlying COPD he also has morbid obesity and chronically dilated (coreen colon) with diaphragmatic eventration. He is tolerating noninvasive ventilation with repeat echo blood gas that is reassuring currently we have the patient out of bed to chair wearing a noninvasive ventilation and he is doing well he does have a risk for declined to requiring intubation but I feel reassured based upon clinical course thus far. We will need to continue diuresis for hydrostatic pulmonary edema Cards: Acutely decompensated heart failure he is responding to loop diuretic no evidence of acute coronary syndrome GI: We will advance liquid diet once off noninvasive ventilation he has evidence of chronic colonic dilation but has are had a bowel movement while here no evidence of obstruction Nutrition: Nothing by mouth for now until respiratory status is less tenuous Renal: UOP Monitored, Cont to Trend sCr and monitor Electrolytes. ID: No clear evidence of infectious process will culture patient at this time because he is at increased risk for pneumonia based upon his encephalopathy a presentation respiratory failure although I do not see overt evidence of pneumonia based upon radiographic imaging Heme/Onc: DVT prophylaxis given Endo: Glucose Monitored Integ/MSK: Skin Care per routine ICU Nursing Protocol to prevent ulcers. Lines: All lines examined without evidence of infection : Dispo: Remain in ICU today for close monitoring of respiratory status CODE: Full <Yehuda Guidry N - Last Filed: 01/14/18 14:21> Date of Encounter: 01/14/18 Time of Encounter: 09:42 Assessment and Plan (1) Acute and chronic respiratory failure with hypoxia Current Visit: No Status: Chronic Patient was recently discharged on 01/12 for a CHF exacerbation. He has reportedly been noncompliant at home with his oxygen. At long-term he has altered mental status today and O2 sats in the 60s. EMS brought him to [facility] ED where he received Lasix and was placed on BiPAP. Placed in the ICU for close monitoring and care. His pH improved after BiPAP and moving out of bed to chair. Most recent ABG 7.34. There is evidence on chest x-ray of colonic distention with the splenic flexure measuring 10 cm. -Continue BiPAP for respiratory support -IV Lasix 40 mg twice a day -Follow-up ABGs -Encourage out of bed to chair to decrease pressure and displacement by the distended colon on the left hemidiaphragm and increase tidal volumes. -Hemodynamically patient is stable, no fevers recorded, and white blood cell count is within range. It is unlikely the patient's current condition is secondary to sepsis, however blood culture have been collected and pending. Patient is currently not on antibiotics. -Continue bronchodilators (2) CHF (congestive heart failure) Current Visit: No Status: Acute Patient was recently discharged on 01/12 for CHF exacerbation. He has been noncompliant on home oxygen. BNP on admission was slightly elevated at 201. Most recent echo from 01/08 was suboptimal due to poor echocardiographic windows , there is grossly normal left ventricular systolic function. -We will diurese with Lasix 40 twice a day Qualifiers: Heart failure type: systolic Heart failure chronicity: acute on chronic Qualified Code(s): I50.23 - Acute on chronic systolic (congestive) heart failure (3) COPD (chronic obstructive pulmonary disease) Current Visit: No Status: Chronic Patient history of COPD. He has Symbicort, DuoNeb, and montelukast on his home medication list. ABGs showed a hypercapnia with a low pH. We will continue bronchodilators and BiPAP. Qualifiers: COPD type: unspecified COPD Qualified Code(s): J44.9 - Chronic obstructive pulmonary disease, unspecified (4) Obstructive sleep apnea Current Visit: No Status: Suspected He will remain on BiPAP at night (7) DVT prophylaxis Current Visit: No Status: Acute Subcutaneous heparin History of Present Illness Consult date: 01/14/18 Requesting physician: Babar Orourke Reason for consult: other (Respiratory failure) Chief complaint: Altered mental status History of present illness: Patient is a 62-year-old male with a past medical history of CHF and COPD who was recently discharged on 01/12 for a CHF exacerbation. Patient was discharged to long-term and reportedly has been noncompliant on his home oxygen. On presentation he was found to have altered mental status and confusion as well as hypoxia. According to EMS the patient had oxygen saturation in the 60s on room air. ABG in the ED showed a pH of 7.17 with a PCO2 of 122. There was evidence of perihilar infiltrates on chest x-ray. He received 40 Lasix, was started on BiPAP, and transferred to the ICU. Of note patient has history of abdominal distention with dilated sections of colon, on presentation patient had an elevated left hemidiaphragm with a splenic flexure measuring up to 10 cm which likely is restricting lung expansion during inhalation. Overnight in the ICU patient remained on BiPAP, repeat ABG showed slight improvement with a pH of 7.24 followed by 7.21 6 hours later. Patient was moved out of bed to chair so that he may be upright and have decreased pressure from abdominal distention and allow for improved tidal volumes. Patient subsequent ABG was improved to 7.34 and his confusion slightly improved as well. Past Med Surg Social Fam HX - Past Medical History Medical history: CHF, COPD, hypertension, renal disease, other Additional medical history: POOR HISTORIAN Psychiatric history: no psych history - Past Surgical History Surgical History: other Additional surgical history: Tonsilectomy - Social History Smoking Status: Never smoker Smokeless Tobacco Status: No Alcohol use: none Drug use: none - Family History Mother History Unknown: Yes Living Status: Hx Family Cardiac Disorders: Yes Hx Family Respiratory Disorders: No Hx Family Cancer: No Hx Family GI Disorders: No Hx Family Endocrine Disorder: No Hx Family Neuromuscular Disorders: No Hx Family Neurologic Disorders: No Hx Family HEENT Disorders: No Hx Family Autoimmune Disorders: No Father History Unknown: Yes Living Status: Hx Family Cardiac Disorders: No Hx Family Respiratory Disorders: No Hx Family Cancer: No Hx Family GI Disorders: No Hx Family Endocrine Disorder: No Hx Family Neuromuscular Disorders: No (ALS) Hx Family Neurologic Disorders: No Hx Family HEENT Disorders: No Hx Family Autoimmune Disorders: No ROS unobtainable: due to mental status, other (On BiPAP) All Systems: The remainder of the systems were reviewed and are negative Physical Examination Vital Signs: Vital Signs, Last 4 Hours Temp Pulse Resp BP Pulse Ox 01/14/18 09:00 52 20 108/81 95 01/14/18 08:30 60 01/14/18 08:00 97.7 F 60 21 105/75 100 General appearance: appears uncomfortable, other Auscultation: bilateral: rales (Mild coarse breath sounds. Absent breath sounds in the left lower quadrant.) Cardiovascular: regular rate and rhythm Gastrointestinal: normoactive bowel sounds, non-tender, other (Diffusely distended) Ventilator Settings Ventilator Settings: Ventilator Settings, Last 8 Hours Ventilator Tidal Volume 600 Setting Results - Laboratory Findings CBC and BMP: 01/14/18 03:44 01/14/18 07:41 ABG ABG pH 7.34 pH Units (7.32-7.45) D 01/14/18 08:18 ABG pCO2 81 mmHg (35-45) H* D 01/14/18 08:18 ABG pO2 94 mmHg (85-104) D 01/14/18 08:18 ABG O2 Saturation 96 % (95-98) 01/14/18 08:18 PT/INR, D-dimer PT 12.0 Seconds (9.4-12.1) 01/13/18 22:35 Abnormal lab findings: Abnormal lab results RBC 3.79 M/mcL (4.19-5.50) L 01/14/18 03:44 Hgb 11.2 g/dL (12.9-16.9) L 01/14/18 03:44 MCHC 29.8 g/dL (31.6-35.5) L 01/14/18 03:44 Plt Count 135 K/mcL (140-400) L 01/14/18 03:44 APTT 37.1 Seconds (26.0-36.0) H 01/13/18 22:35 ABG pCO2 81 mmHg (35-45) H* D 01/14/18 08:18 ABG HCO3 44 mEq/L (21-27) H 01/14/18 08:18 ABG Total CO2 46 mEq/L (20-26) H 01/14/18 08:18 ABG Base Excess 14 mEq/L (-2 to 3) H 01/14/18 08:18 Chloride 96 mEq/L (98-107) L 01/14/18 07:41 Carbon Dioxide 39 mEq/L (23-29) H 01/14/18 07:41 BUN 33 mg/dL (8-23) H 01/14/18 07:41 Creatinine 1.36 mg/dL (0.70-1.30) H 01/14/18 07:41 Est GFR (Non-Af Amer) 53 (> 60) L 01/14/18 07:41 Glucose 147 mg/dL (70-105) H 01/14/18 07:41 POC Glucose 128 mg/dL (70-99) H 01/14/18 01:13 Calculated Osmolality 304 (280-300) H 01/14/18 07:41 B-Natriuretic Peptide 201 pg/mL (Less than 100) H 01/13/18 22:35 Ur Squamous Epith Cells Many per lpf (None-Few) H 01/13/18 23:24 - Diagnostic Findings Chest x-ray: report reviewed, image reviewed - Clinical Findings Intake & Output: Intake & Output 01/13/18 01/14/18 01/14/18 23:59 07:59 15:59 Intake Total 200 / 200 Output Total 500 / 500 Balance -300 / -300
--- NOTE | 2018-01-14 09:45 | Event Note ---
Date of Encounter: 01/14/18 Time of Encounter: 09:44 Patient was seen and examined. He was admitted by my colleague overnight for acute hypoxemic hypercarbic respiratory failure requiring BiPAP likely stemming from a CHF exacerbation. Still on BiPAP. Being diuresed. Pulmonary kindly to see.
[2018-01-14] MEDS: Budesonide/Formoterol 160/4.5 MDI IH SCH ×2 (10:27→21:40)
[2018-01-14] MEDS: Furosemide 40 MG/4 ML VIAL IVP SCH (14:17)
--- NOTE | 2018-01-14 16:37 | Electrocardiograph Report ---
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
[2018-01-15] MEDS ORDERED: *HR* HYDROcodone/Acet 7.5/325 mg TABLET PO PRN (01:25)
[2018-01-15] MEDS ORDERED: Acetaminophen 325 MG TABLET PO PRN ×2 (01:25→11:30)
[2018-01-15] MEDS: Ipratropium/Albuterol Neb 3 ML IH SCH ×4 (03:54→21:50)
[2018-01-15 05:28] LABS: Basophils % 0.2 %; Eosinophils # 0.1 K/mcL (0.0-0.6); Eosinophils % 1.2 %; Hematocrit 34.5 % (37.5-50.1); Hemoglobin 10.7 g/dL (12.9-16.9); Immature Granulocytes % 0.4 % (0-4); Lymphocytes # 1.2 K/mcL (0.6-4.6); Lymphocytes % 24.7 %; Mean Corpuscular Hemoglobin 30.1 pg (28.0-33.3); Mean Corpuscular Volume 97.2 fL (83.0-100.0); Mean Platelet Volume 10.6 fL (9.4-12.4); Monocytes # 0.5 K/mcL (0.0-1.3); Monocytes % 10.7 %; Neutrophils # 3.1 K/mcL (1.6-8.9); Platelet Count 132 K/mcL (140-400); Red Blood Count 3.55 M/mcL (4.19-5.50); Red Cell Distribution Width 13.2 % (11.5-14.5); Segmented Neutrophils % 62.8 %
[2018-01-15] MEDS: *HR* Heparin 5,000 UNIT/ML VIAL SQ SCH ×4 (05:46→21:40)
[2018-01-15 06:00] LABS: BUN/Creatinine Ratio 27 (6-26); Blood Urea Nitrogen 34 mg/dL (8-23); Calcium 8.9 mg/dL (8.6-10.3); Carbon Dioxide 42 mEq/L (23-29); Chloride 97 mEq/L (98-107); Glucose 122 mg/dL (70-105); Osmolality,Calculated 305 (280-300); Potassium 2.6 mEq/L (3.5-5.1); Sodium 143 mEq/L (136-145); eGFR For Non-African Americans 57 (> 60)
[2018-01-15 07:20] LABS: Magnesium 2.1 mg/dL (1.6-2.6)
--- NOTE | 2018-01-15 08:29 | Pulmonology Progress Note ---
Date of Encounter: 01/15/18 Time of Encounter: 08:27 Assessment and Plan (1) Acute on chronic respiratory failure with hypoxia and hypercapnia Current Visit: Yes Status: Acute This is secondary to CHF exacerbation complicated by underlying COPD obesity hypoventilation syndrome SHALINI and severe colonic dilation which appears chronic. Underlying physiology is both restrictive and obstructive. Repeat ABG done yesterday shows reassuring gas exchange Currently stable on nasal cannula O2 will wean to keep saturation greater than 92% he will need noninvasive ventilation at night will need confirmation patient has BiPAP at home. He should return to home settings have not empiric settings will be arranged here in patient. Continue chemical DVT prophylaxis (2) Acute diastolic CHF (congestive heart failure) Current Visit: Yes Status: Acute Continue Lasix diuresis and blood pressure control he is responding to current therapies aim for another 1.5-2 L negative over the course of the day (3) Metabolic alkalosis Current Visit: Yes Status: Acute This is chronic and I recommend aggressive repletion of potassium and chloride Can consider Diamox based upon clinical course (4) Encephalopathy Current Visit: Yes Status: Acute Acute encephalopathy on admission is resolved this is likely related related to electrolyte abnormalities and acidosis. At baseline brothers to be "pleasantly demented" No focal neurological deficits on examination today he had a head CT on admission which was negative for acute process (5) Morbid obesity with BMI of 50.0-59.9, adult Current Visit: No Status: Chronic (Complicated by obesity hypoventilation syndrome Ideally weight loss would be beneficial for the patient however given multiple medical comorbidities and underlying dementia think overall prognosis for this is poor (6) COPD (chronic obstructive pulmonary disease) Current Visit: No Status: Chronic Continue schedule bronchodilators No clear and evidence of exacerbation warranting systemic glucocorticoids No clear evidence of infectious process warranting antimicrobials Qualifiers: COPD type: unspecified COPD Qualified Code(s): J44.9 - Chronic obstructive pulmonary disease, unspecified (7) Obstructive sleep apnea Current Visit: No Status: Suspected Continue BiPAP at night and was napping Patient is stable for transfer to [facility] for ongoing care Subjective Principal diagnosis: CHF Interval history: Mr. Cleary has done very well on the last 24 hours. He responded to combination of noninvasive ventilation after mobilizing out of bed to chair and diuresis. The alarming features of his acute on chronic respiratory failure of by a large result over the last 24 hours. He is much more awake and appears to be nearing baseline mental status which I suspect is complicated by dementia. In speaking with him today he says he has no complaints that he feels great. Per the patient he wears BiPAP at night and the nursing facility where he resides I have not corroborated this as of yet. Objective PUL Vital signs: Last Vital Signs Temp 97.8 F 01/15/18 07:34 Pulse 57 01/15/18 07:00 Resp 15 01/15/18 07:00 BP 127/65 01/15/18 07:00 Pulse Ox 94 01/15/18 07:00 General appearance: no acute distress Eyes: nonicteric ENT: oropharynx moist Mallampati (class): 4 Neck: supple Effort: normal Auscultation: bilateral: diminished breath sounds, rales Cardiovascular: regular rate and rhythm Gastrointestinal: normoactive bowel sounds, soft, non-tender, other (distended but tympanic to percussion ) Integumentary: normal Extremities: no cyanosis, no clubbing, edema Musculoskeletal: no deformities non-focal exam, pupils equal and round mood appropriate Results - Laboratory Findings CBC and BMP: 01/15/18 04:39 01/15/18 04:39 ABG ABG pH 7.34 pH Units (7.32-7.45) D 01/14/18 08:18 ABG pCO2 81 mmHg (35-45) H* D 01/14/18 08:18 ABG pO2 94 mmHg (85-104) D 01/14/18 08:18 ABG O2 Saturation 96 % (95-98) 01/14/18 08:18 PT/INR, D-dimer PT 12.0 Seconds (9.4-12.1) 01/13/18 22:35 Abnormal lab findings: Abnormal lab results RBC 3.55 M/mcL (4.19-5.50) L 01/15/18 04:39 Hgb 10.7 g/dL (12.9-16.9) L 01/15/18 04:39 Hct 34.5 % (37.5-50.1) L 01/15/18 04:39 MCHC 31.0 g/dL (31.6-35.5) L 01/15/18 04:39 Plt Count 132 K/mcL (140-400) L 01/15/18 04:39 APTT 37.1 Seconds (26.0-36.0) H 01/13/18 22:35 ABG pCO2 81 mmHg (35-45) H* D 01/14/18 08:18 ABG HCO3 44 mEq/L (21-27) H 01/14/18 08:18 ABG Total CO2 46 mEq/L (20-26) H 01/14/18 08:18 ABG Base Excess 14 mEq/L (-2 to 3) H 01/14/18 08:18 Potassium 2.6 mEq/L (3.5-5.1) L D 01/15/18 04:39 Chloride 97 mEq/L (98-107) L 01/15/18 04:39 Carbon Dioxide 42 mEq/L (23-29) H* 01/15/18 04:39 BUN 34 mg/dL (8-23) H 01/15/18 04:39 Est GFR (Non-Af Amer) 57 (> 60) L 01/15/18 04:39 BUN/Creatinine Ratio 27 (6-26) H 01/15/18 04:39 Glucose 122 mg/dL (70-105) H 01/15/18 04:39 POC Glucose 128 mg/dL (70-99) H 01/14/18 01:13 Calculated Osmolality 305 (280-300) H 01/15/18 04:39 B-Natriuretic Peptide 201 pg/mL (Less than 100) H 01/13/18 22:35 Ur Squamous Epith Cells Many per lpf (None-Few) H 01/13/18 23:24 - Clinical Findings Intake & Output: Intake & Output 01/14/18 01/15/18 01/15/18 23:59 07:59 15:59 Output Total 500 / 500 550 / 550 Balance -500 / -500 -550 / -550 Weight 160 kg Consult Discharge Plan - Plan Referrals: NONE,PCP [Primary Care Provider] -
[2018-01-15] MEDS: Budesonide/Formoterol 160/4.5 MDI IH SCH ×2 (10:29→21:50)
[2018-01-15] MEDS: Furosemide 40 MG/4 ML VIAL IVP SCH ×2 (11:05→15:04)
[2018-01-15] MEDS: Metoprolol XL (24 HR) Succ 50 MG TAB.ER.24H PO SCH (11:06)
[2018-01-15] MEDS ORDERED: Naloxone 0.4 MG/ML INJ IVP PRN (11:30)
[2018-01-15] MEDS: *HR* HYDROcodone/Acet 7.5/325 mg TABLET PO PRN ×2 (12:32→22:23)
[2018-01-15 16:49] LABS: BUN/Creatinine Ratio 26 (6-26); Blood Urea Nitrogen 30 mg/dL (8-23); Calcium 9.3 mg/dL (8.6-10.3); Carbon Dioxide 43 mEq/L (23-29); Chloride 94 mEq/L (98-107); Glucose 115 mg/dL (70-105); Osmolality,Calculated 303 (280-300); Potassium 2.6 mEq/L (3.5-5.1); Sodium 143 mEq/L (136-145); eGFR For Non-African Americans > 60 (> 60)
[2018-01-15] MEDS: *HR* LORazepam 2 MG/ML VIAL IVP PRN (18:11)
[2018-01-16] MEDS: Ipratropium/Albuterol Neb 3 ML IH SCH ×4 (04:17→21:57)
[2018-01-16] MEDS: *HR* Heparin 5,000 UNIT/ML VIAL SQ SCH ×3 (06:07→20:58)
[2018-01-16 06:23] LABS: Basophils % 0.4 %; Eosinophils # 0.2 K/mcL (0.0-0.6); Hematocrit 36.6 % (37.5-50.1); Hemoglobin 11.4 g/dL (12.9-16.9); Immature Granulocytes % 0.4 % (0-4); Lymphocytes # 1.2 K/mcL (0.6-4.6); Lymphocytes % 23.9 %; Mean Corpuscular HGB Conc 31.1 g/dL (31.6-35.5); Mean Corpuscular Hemoglobin 29.6 pg (28.0-33.3); Mean Corpuscular Volume 95.1 fL (83.0-100.0); Mean Platelet Volume 10.4 fL (9.4-12.4); Monocytes # 0.6 K/mcL (0.0-1.3); Monocytes % 11.1 %; Platelet Count 131 K/mcL (140-400); Red Blood Count 3.85 M/mcL (4.19-5.50); Red Cell Distribution Width 13.5 % (11.5-14.5); Segmented Neutrophils % 61.2 %
[2018-01-16 07:13] LABS: BUN/Creatinine Ratio 23 (6-26); Blood Urea Nitrogen 25 mg/dL (8-23); Calcium 8.9 mg/dL (8.6-10.3); Carbon Dioxide 44 mEq/L (23-29); Chloride 94 mEq/L (98-107); Glucose 134 mg/dL (70-105); Osmolality,Calculated 302 (280-300); Potassium 2.5 mEq/L (3.5-5.1); Sodium 143 mEq/L (136-145); eGFR For Non-African Americans > 60 (> 60)
[2018-01-16] MEDS ORDERED: Potassium Chloride 40 MEQ, Lidocaine 1% 2 ML in D5% in Water 500 ML IVPB ONE (07:46)
[2018-01-16] MEDS: *HR* HYDROcodone/Acet 7.5/325 mg TABLET PO PRN ×2 (08:54→23:39)
[2018-01-16] MEDS: Furosemide 40 MG/4 ML VIAL IVP SCH (08:54)
[2018-01-16] MEDS: Metoprolol XL (24 HR) Succ 50 MG TAB.ER.24H PO SCH (08:55)
[2018-01-16] MEDS: *HR* LORazepam 2 MG/ML VIAL IVP PRN ×2 (10:11→20:58)
[2018-01-16] MEDS: Budesonide/Formoterol 160/4.5 MDI IH SCH ×2 (10:55→21:56)
[2018-01-16] MEDS ORDERED: Nitroglycerin 0.4 MG TAB.SUBL SL PRN (12:17)
--- NOTE | 2018-01-16 14:03 | Internal Med Progress Note ---
Date of Encounter: 01/16/18 Time of Encounter: 10:20 - Assessment and plan (1) Acute respiratory failure with hypoxia and hypercapnia Current Visit: Yes Status: Acute Assessment and plan: Due to underlying CHF/sleep apnea. Continue O2 supplementation and BiPAP use as needed. Clinically patient is looking much better. He may benefit from use of BiPAP at bedtime after discharge. Will attempt BiPAP qualification tonight. (2) CHF exacerbation Current Visit: Yes Status: Acute Assessment and plan: Improving. We will transition to oral Lasix. Patient has had -5 L fluid balance Qualifiers: Heart failure type: unspecified Qualified Code(s): I50.9 - Heart failure, unspecified (3) DVT prophylaxis Current Visit: Yes Status: Acute Assessment and plan: On subcutaneous heparin (4) Morbid obesity with BMI of 50.0-59.9, adult Current Visit: No Status: Chronic (5) Altered mental status Current Visit: Yes Status: Resolved Assessment and plan: Now resolved. Qualifiers: Altered mental status type: delirium Qualified Code(s): R41.0 - Disorientation, unspecified (6) COPD (chronic obstructive pulmonary disease) Current Visit: Yes Status: Chronic Assessment and plan: Continue Symbicort, DuoNeb's and O2 supplementation with BiPAP. We will attempt BiPAP evaluation tonight. Qualifiers: COPD type: unspecified COPD Qualified Code(s): J44.9 - Chronic obstructive pulmonary disease, unspecified (7) Obstructive sleep apnea Current Visit: Yes Status: Suspected Assessment and plan: Use BiPAP at night as needed (8) Anemia Current Visit: Yes Status: Acute Assessment and plan: Hemoglobin 11.4. Stable. Qualifiers: Anemia type: unspecified type Qualified Code(s): D64.9 - Anemia, unspecified (9) Hypokalemia Current Visit: Yes Status: Acute Assessment and plan: Remains persistently hypokalemic. We will replete 40 [address] patient on 40 mEq twice daily by mouth (10) Essential hypertension Current Visit: Yes Status: Chronic Assessment and plan: blood pressure is well controlled (11) Metabolic alkalosis Current Visit: Yes Status: Acute Assessment and plan: Metabolic alkalosis is worsening. Due to underlying respiratory acidosis and Lasix use. We will transition to oral Lasix. Pulmonology has previously recommended acetazolamide. However given patient's hypokalemia, will hold off on this medication. - Time Spent With Patient Total time spent is greater than 50% in coordination of care (as documented) at patient's floor/unit and/or counseling patient: - Subjective Interval history: Patient feels much better today. He is awake and alert. Able to carry conversation properly. Denies any chest pain. Shortness of breath is improving. Wishes to go home/skilled rehabilitation. - Constitutional Vitals: Temp Pulse Resp BP Pulse Ox 97.5 F L 63 18 121/73 97 01/16/18 11:51 01/16/18 11:51 01/16/18 11:51 01/16/18 11:51 01/16/18 11:51 General appearance: Present: cooperative, A&O X 2, no acute distress, obese, answers questions appropriately - Neck Neck exam general surgery: Present: supple, trachea midline. Absent: lymphadenopathy - Respiratory Respiratory exam: Present: decreased breath sounds (at both bases), prolonged expiratory phase. Absent: accessory muscle use, rales, rhonchi - Cardiovascular Cardiovascular exam: Present: RRR, +S1, +S2. Absent: diastolic murmur, gallop, rubs, systolic murmur - GI/Abdominal GI/Abdominal exam: Present: normal bowel sounds, soft, no peritoneal signs. Absent: distended, tenderness - Extremities Exam Extremities exam: Present: pedal edema, warm, radial pulses palpable and symmetrical. Absent: calf tenderness, cyanotic - Neurological Exam Neurological exam: Present: alert, oriented X3, no focal deficits. Absent: facial droop, speech deficit Internal Medicine: Result - Labs CBC & Chem 7: 01/16/18 06:03 01/16/18 06:03 Labs: Short CBC 01/16/18 Range/Units 06:03 WBC 5.0 (4.3-11.1) K/mcL Hgb 11.4 L (12.9-16.9) g/dL Hct 36.6 L (37.5-50.1) % Plt Count 131 L (140-400) K/mcL Neutrophils # 3.0 (1.6-8.9) K/mcL BMP 01/15/18 01/16/18 15:44 06:03 Sodium 143 143 Potassium 2.6 L 2.5 L* Chloride 94 L 94 L Carbon Dioxide 43 H* 44 H* BUN 30 H 25 H Creatinine 1.17 1.09 Glucose 115 H 134 H Calcium 9.3 8.9 - ABG Interpretation ABG results: ABG ABG pH 7.34 pH Units (7.32-7.45) D 01/14/18 08:18 ABG pCO2 81 mmHg (35-45) H* D 01/14/18 08:18 ABG pO2 94 mmHg (85-104) D 01/14/18 08:18 ABG O2 Saturation 96 % (95-98) 01/14/18 08:18 PT/INR, D-dimer PT 12.0 Seconds (9.4-12.1) 01/13/18 22:35 Consult Discharge Plan - Plan Referrals: NONE,PCP [Primary Care Provider] -
[2018-01-16] MEDS: Furosemide 40 MG TABLET PO SCH (16:32)
[2018-01-17] MEDS: Ipratropium/Albuterol Neb 3 ML IH SCH ×4 (03:52→22:31)
[2018-01-17 05:06] LABS: Basophils % 0.2 %; Eosinophils # 0.2 K/mcL (0.0-0.6); Eosinophils % 4.3 %; Hematocrit 36.1 % (37.5-50.1); Hemoglobin 11.2 g/dL (12.9-16.9); Immature Granulocytes % 0.4 % (0-4); Lymphocytes # 1.5 K/mcL (0.6-4.6); Lymphocytes % 31.1 %; Mean Corpuscular Hemoglobin 29.2 pg (28.0-33.3); Mean Corpuscular Volume 94.3 fL (83.0-100.0); Mean Platelet Volume 10.5 fL (9.4-12.4); Monocytes # 0.6 K/mcL (0.0-1.3); Monocytes % 12.2 %; Neutrophils # 2.4 K/mcL (1.6-8.9); Platelet Count 135 K/mcL (140-400); Red Blood Count 3.83 M/mcL (4.19-5.50); Red Cell Distribution Width 13.8 % (11.5-14.5); Segmented Neutrophils % 51.8 %
[2018-01-17 05:29] LABS: BUN/Creatinine Ratio 18 (6-26); Blood Urea Nitrogen 18 mg/dL (8-23); Calcium 8.9 mg/dL (8.6-10.3); Carbon Dioxide 42 mEq/L (23-29); Chloride 97 mEq/L (98-107); Glucose 126 mg/dL (70-105); Osmolality,Calculated 301 (280-300); Potassium 2.5 mEq/L (3.5-5.1); Sodium 144 mEq/L (136-145); eGFR For Non-African Americans > 60 (> 60)
[2018-01-17] MEDS: *HR* Heparin 5,000 UNIT/ML VIAL SQ SCH ×3 (06:23→20:09)
[2018-01-17] MEDS: Thiamine (B-1) 100 MG TABLET PO SCH (08:18)
[2018-01-17] MEDS: Metoprolol XL (24 HR) Succ 50 MG TAB.ER.24H PO SCH (08:18)
[2018-01-17] MEDS: Furosemide 40 MG TABLET PO SCH (08:18)
[2018-01-17] MEDS: Vitamin B Complex/Vit C/Vit E 1 EACH TABLET PO SCH (08:18)
[2018-01-17] MEDS: Folic Acid 1 MG TABLET PO SCH (08:18)
[2018-01-17] MEDS: *HR* HYDROcodone/Acet 7.5/325 mg TABLET PO PRN ×2 (08:18→17:20)
[2018-01-17] MEDS: acetaZOLAMIDE 250 MG TABLET PO SCH ×2 (11:01→20:09)
[2018-01-17] MEDS: Fluticasone Propionate Nasal 50 MCG/SPRAY BOTTLE NS SCH (11:02)
[2018-01-17] MEDS: Budesonide/Formoterol 160/4.5 MDI IH SCH ×2 (11:05→22:30)
--- NOTE | 2018-01-17 13:11 | Internal Med Progress Note ---
Hospitalist Progress Note - Encounter Date of Encounter: 01/17/18 Time of Encounter: 10:40 - Subjective Interval History: Mr. Dumas is a 62 year old male with past medical history of diastolic CHF, COPD, hypertension who presented to [facility] ED via EMS from the shelter due to hypoxia and altered mental status. In the ED ABG demonstrated hypercapnic respiratory failure pH 7.17/ CO2 122/ O2 94. Chest x- ray demonstrated bilateral perihilar infiltrates with right pleural effusion that is stable compared to previous exam. Pt was admitted in the ICU initially and placed him BiPAP, as well as started him on aggressive IV diuresis. His symptoms started improving slowly. He is currently on 2 lit NC O2. Denied any CP. Still has moderate SOB and REYES. - Exam Vitals: Temp Pulse Resp BP Pulse Ox 98.1 F 52 20 132/77 98 01/17/18 11:59 01/17/18 11:59 01/17/18 11:59 01/17/18 11:59 01/17/18 11:59 Exam: Gen: A,A, O x 3 Chest: Diminished BS Bl, rales/ crackles + no wheezing Heart: S1S2+ RRR, No murmurs Abd: Soft, NT +, Distended Ext: 2+ pitting edema, No calf tenderness Neuro : A, A< O x3 - Assessment and Plan (1) Acute respiratory failure with hypoxia and hypercapnia Current Visit: Yes Status: Acute Assessment and Plan: Improving May get benefir with home BiPAP, however he did not qualify for BiPAP Recommend to continue CPAP regularly at HS Duoneb and O2 (2) CHF exacerbation Current Visit: Yes Status: Acute Assessment and Plan: Acute on chronic diastolic CHF exacerbation improving will cut back on Lasix dose continue other home meds reviewed 2D echo from 12/2017 showed normal LV systolic function (3) Metabolic alkalosis Current Visit: Yes Status: Acute Assessment and Plan: Due to aggressive diuresis cut back n Lasix to 20mg BID PO Also started him on Acetazolamide (4) Morbid obesity with BMI of 50.0-59.9, adult Current Visit: No Status: Chronic Assessment and Plan: Needs lifestyle changes PT/OT ordered (5) Altered mental status Current Visit: Yes Status: Resolved Assessment and Plan: Now resolved. (6) COPD (chronic obstructive pulmonary disease) Current Visit: Yes Status: Chronic Assessment and Plan: Continue Symbicort, DuoNeb's and O2 supplementation with BiPAP / CPAP Did not qualify for BiPAP ok to use CPAP at ECF (7) Obstructive sleep apnea Current Visit: Yes Status: Suspected Assessment and Plan: Use CPAP at night as needed (8) Anemia Current Visit: Yes Status: Acute Assessment and Plan: Hemoglobin stable. (9) Hypokalemia Current Visit: Yes Status: Acute Assessment and Plan: Remains persistently hypokalemic. We will replete 40 [address] patient on 40 mEq twice daily by mouth (10) Essential hypertension Current Visit: Yes Status: Chronic Assessment and Plan: blood pressure is well controlled (11) DVT prophylaxis Current Visit: Yes Status: Acute Assessment and Plan: On subcutaneous heparin - Time Spent with Patient Total time spent is greater than 50% in coordination of care (as documented) at patient's floor/unit and/or counseling patient: Internal Medicine: Result - Labs CBC & Chem 7: 01/17/18 04:24 01/17/18 04:24 Labs: Short CBC 01/17/18 Range/Units 04:24 WBC 4.7 (4.3-11.1) K/mcL Hgb 11.2 L (12.9-16.9) g/dL Hct 36.1 L (37.5-50.1) % Plt Count 135 L (140-400) K/mcL Neutrophils # 2.4 (1.6-8.9) K/mcL BMP 01/17/18 04:24 Sodium 144 Potassium 2.5 L* Chloride 97 L Carbon Dioxide 42 H* BUN 18 Creatinine 0.99 Glucose 126 H Calcium 8.9 - ABG Interpretation ABG results: ABG ABG pH 7.34 pH Units (7.32-7.45) D 01/14/18 08:18 ABG pCO2 81 mmHg (35-45) H* D 01/14/18 08:18 ABG pO2 94 mmHg (85-104) D 01/14/18 08:18 ABG O2 Saturation 96 % (95-98) 01/14/18 08:18 PT/INR, D-dimer PT 12.0 Seconds (9.4-12.1) 01/13/18 22:35 Consult Discharge Plan - Plan Referrals: NONE,PCP [Primary Care Provider] - (2) CHF exacerbation Qualifiers: Heart failure type: unspecified Qualified Code(s): I50.9 - Heart failure, unspecified (5) Altered mental status Qualifiers: Altered mental status type: delirium Qualified Code(s): R41.0 - Disorientation, unspecified (6) COPD (chronic obstructive pulmonary disease) Qualifiers: COPD type: unspecified COPD Qualified Code(s): J44.9 - Chronic obstructive pulmonary disease, unspecified (8) Anemia Qualifiers: Anemia type: unspecified type Qualified Code(s): D64.9 - Anemia, unspecified
[2018-01-17] MEDS: Ondansetron ODT 4 MG TAB.RAPDIS SL PRN (15:05)
[2018-01-17 17:10] LABS: BUN/Creatinine Ratio 15 (6-26); Blood Urea Nitrogen 16 mg/dL (8-23); Calcium 9.4 mg/dL (8.6-10.3); Carbon Dioxide 38 mEq/L (23-29); Chloride 97 mEq/L (98-107); Glucose 118 mg/dL (70-105); Magnesium 1.9 mg/dL (1.6-2.6); Osmolality,Calculated 294 (280-300); Potassium 3.2 mEq/L (3.5-5.1); Sodium 141 mEq/L (136-145); eGFR For Non-African Americans > 60 (> 60)
[2018-01-17] MEDS: Furosemide 20 MG TABLET PO SCH (17:20)
[2018-01-18] MEDS: Ipratropium/Albuterol Neb 3 ML IH SCH ×3 (03:42→15:29)
[2018-01-18 04:58] LABS: Basophils % 0.6 %; Eosinophils # 0.4 K/mcL (0.0-0.6); Eosinophils % 7.4 %; Hematocrit 37.4 % (37.5-50.1); Hemoglobin 11.4 g/dL (12.9-16.9); Immature Granulocytes % 0.2 % (0-4); Lymphocytes # 1.3 K/mcL (0.6-4.6); Lymphocytes % 27.2 %; Mean Corpuscular HGB Conc 30.5 g/dL (31.6-35.5); Mean Corpuscular Hemoglobin 29.1 pg (28.0-33.3); Mean Corpuscular Volume 95.4 fL (83.0-100.0); Mean Platelet Volume 10.4 fL (9.4-12.4); Monocytes # 0.4 K/mcL (0.0-1.3); Monocytes % 8.2 %; Neutrophils # 2.8 K/mcL (1.6-8.9); Platelet Count 132 K/mcL (140-400); Red Blood Count 3.92 M/mcL (4.19-5.50); Segmented Neutrophils % 56.4 %
[2018-01-18 05:20] LABS: BUN/Creatinine Ratio 14 (6-26); Blood Urea Nitrogen 16 mg/dL (8-23); Carbon Dioxide 34 mEq/L (23-29); Chloride 101 mEq/L (98-107); Glucose 124 mg/dL (70-105); Osmolality,Calculated 297 (280-300); Potassium 3.1 mEq/L (3.5-5.1); Sodium 142 mEq/L (136-145); eGFR For Non-African Americans > 60 (> 60)
[2018-01-18] MEDS: *HR* Heparin 5,000 UNIT/ML VIAL SQ SCH ×2 (05:59→14:42)
[2018-01-18] MEDS: Folic Acid 1 MG TABLET PO SCH (09:47)
[2018-01-18] MEDS: Vitamin B Complex/Vit C/Vit E 1 EACH TABLET PO SCH (09:47)
[2018-01-18] MEDS: Furosemide 20 MG TABLET PO SCH (09:47)
[2018-01-18] MEDS: acetaZOLAMIDE 250 MG TABLET PO SCH (09:47)
[2018-01-18] MEDS: Metoprolol XL (24 HR) Succ 50 MG TAB.ER.24H PO SCH (09:57)
[2018-01-18] MEDS: Thiamine (B-1) 100 MG TABLET PO SCH (09:57)
[2018-01-18] MEDS: *HR* HYDROcodone/Acet 7.5/325 mg TABLET PO PRN (10:04)
[2018-01-18] MEDS: Fluticasone Propionate Nasal 50 MCG/SPRAY BOTTLE NS SCH (10:08)
[2018-01-18] MEDS: Budesonide/Formoterol 160/4.5 MDI IH SCH (10:31)
--- NOTE | 2018-01-18 13:31 | Internal Med Progress Note ---
Hospitalist Progress Note - Encounter Date of Encounter: 01/18/18 Time of Encounter: 13:31 - Exam Vitals: Temp Pulse Resp BP Pulse Ox 98.6 F 67 18 116/70 99 01/18/18 11:12 01/18/18 11:38 01/18/18 11:12 01/18/18 11:38 01/18/18 11:12 - Assessment and Plan (1) DVT prophylaxis Current Visit: Yes Status: Acute (2) Morbid obesity with BMI of 50.0-59.9, adult Current Visit: No Status: Chronic (3) Altered mental status Current Visit: Yes Status: Resolved (4) COPD (chronic obstructive pulmonary disease) Current Visit: Yes Status: Chronic (5) Obstructive sleep apnea Current Visit: Yes Status: Suspected (6) Anemia Current Visit: Yes Status: Acute (7) Acute respiratory failure with hypoxia and hypercapnia Current Visit: Yes Status: Acute (8) Hypokalemia Current Visit: Yes Status: Acute (9) Essential hypertension Current Visit: Yes Status: Chronic (10) CHF exacerbation Current Visit: Yes Status: Acute (11) Metabolic alkalosis Current Visit: Yes Status: Acute - Time Spent with Patient Total time spent is greater than 50% in coordination of care (as documented) at patient's floor/unit and/or counseling patient: Internal Medicine: Result - Labs CBC & Chem 7: 01/18/18 04:44 01/18/18 04:44 Labs: Short CBC 01/18/18 Range/Units 04:44 WBC 4.9 (4.3-11.1) K/mcL Hgb 11.4 L (12.9-16.9) g/dL Hct 37.4 L (37.5-50.1) % Plt Count 132 L (140-400) K/mcL Neutrophils # 2.8 (1.6-8.9) K/mcL BMP 01/17/18 01/18/18 16:30 04:44 Sodium 141 142 Potassium 3.2 L D 3.1 L Chloride 97 L 101 Carbon Dioxide 38 H 34 H BUN 16 16 Creatinine 1.10 1.12 Glucose 118 H 124 H Calcium 9.4 9.0 - ABG Interpretation ABG results: ABG ABG pH 7.34 pH Units (7.32-7.45) D 01/14/18 08:18 ABG pCO2 81 mmHg (35-45) H* D 01/14/18 08:18 ABG pO2 94 mmHg (85-104) D 01/14/18 08:18 ABG O2 Saturation 96 % (95-98) 01/14/18 08:18 PT/INR, D-dimer PT 12.0 Seconds (9.4-12.1) 01/13/18 22:35 Consult Discharge Plan - Plan Referrals: NONE,PCP [Primary Care Provider] - (3) Altered mental status Qualifiers: Altered mental status type: delirium Qualified Code(s): R41.0 - Disorientation, unspecified (4) COPD (chronic obstructive pulmonary disease) Qualifiers: COPD type: unspecified COPD Qualified Code(s): J44.9 - Chronic obstructive pulmonary disease, unspecified (6) Anemia Qualifiers: Anemia type: unspecified type Qualified Code(s): D64.9 - Anemia, unspecified (10) CHF exacerbation Qualifiers: Heart failure type: unspecified Qualified Code(s): I50.9 - Heart failure, unspecified
[2018-01-18] MEDS: Ondansetron ODT 4 MG TAB.RAPDIS SL PRN (14:42)
--- NOTE | 2018-01-18 15:33 | Discharge Summary ---
- NOTES TO OUTPATIENT PROVIDER Notes to Outpatient Provider: Acetcarlos enriqueide was admitted to medication list. The dose of Lasix was decreased. Orders not resulted at time of discharge: Pending orders 01/19/18 04:00 Chem 7 [Basic Metabolic Panel] AM 0400 Date of Encounter: 01/18/18 Time of Encounter: 10:50 - Discharge Diagnosis (1) DVT prophylaxis Priority: Primary Status: Acute (2) Morbid obesity with BMI of 50.0-59.9, adult Priority: Secondary Status: Chronic (3) Altered mental status Priority: Primary Status: Resolved Qualifiers: Altered mental status type: delirium Qualified Code(s): R41.0 - Disorientation, unspecified (4) COPD (chronic obstructive pulmonary disease) Priority: Secondary Status: Chronic Qualifiers: COPD type: unspecified COPD Qualified Code(s): J44.9 - Chronic obstructive pulmonary disease, unspecified (5) Obstructive sleep apnea Priority: Secondary Status: Suspected (6) Anemia Priority: Primary Status: Acute Qualifiers: Anemia type: unspecified type Qualified Code(s): D64.9 - Anemia, unspecified (7) Acute respiratory failure with hypoxia and hypercapnia Priority: Primary Status: Acute (8) Hypokalemia Priority: Primary Status: Acute (9) Essential hypertension Priority: Secondary Status: Chronic (10) CHF exacerbation Priority: Primary Status: Acute Qualifiers: Heart failure type: unspecified Qualified Code(s): I50.9 - Heart failure, unspecified (11) Metabolic alkalosis Priority: Primary Status: Acute Hospital course: Mr. Dumas is a 62 year old male with medical history of chronic respiratory failure with hypoxia and hypercapnia, CHF with preserved ejection fraction, COPD , hypertension, morbid obesity, obstructive sleep apnea. The patient was readmitted to this facility for management of acute on chronic CHF exacerbation , acute on chronic respiratory failure with hypoxia and hypercapnia, metabolic alkalosis. He was found to be hypoxic at the rehabilitation center prior to transfer here. He was treated with intravenous Lasix twice a day as well as BiPAP therapy. Hospital stay remarkable for severe hypokalemia and metabolic alkalosis possibly due to potassium wasting from diuretics. He has been receiving potassium replacement with significant improvement. Lasix dose has been decreased and acetazolamide has been added with improvement in metabolic alkalosis. Chronic metabolic alkalosis likely due to diuretic use and compensation for respiratory acidosis. The patient is seen and examined this morning at the bedside he has no new complaints. His pedal edema is grossly reduced. He is hemodynamically and clinically stable. His oxygen requirement is at his baseline. He did not qualify for BiPAP at the [facility] facility. The patient does have his own CPAP machine which he can continue to use as per case management. He is stable to be transferred back to SNF/[facility] for rehab Recommend routine Chem check and K replacements at SNF Stable for discharge, plan of care discussed with patient who verbalized understanding Discharge discussed with: patient, nurse, social work, case management - Time Spent with Patient Total time spent providing and/or coordinating discharge services: Greater than 30 minutes - Discharge Medications Prescriptions: Gabapentin [Neurontin] 1,200 mg PO TID 3 Days #30 capsule HYDROcodone/Acet 7.5/325 mg [[place] 7.5-325 mg] 1 tab PO Q8H PRN 3 Days #10 tablet PRN Reason: Pain Home Medications: Atorvastatin [Lipitor] 40 mg PO HS 07/29/15 [History] Sertraline [Zoloft] 200 mg PO QAM 07/29/15 [History] Albuterol Sulfate [Albuterol Inhaler] 2 puff IH Q4HR PRN 10/25/15 [History] Fluticasone Propionate Nasal [Flonase] 2 spray NS DAILY 7 Days bottle 11/10/15 [Rx] Budesonide/Formoterol 160/4.5 [Symbicort 160/4.5] 2 puff IH BIDR 01/10/17 [ History] Omeprazole [PriLOSEC] 40 mg PO DAILY 01/10/17 [History] Oxygen 1 each .ROUTE AD 01/10/17 [History] Folic Acid 1 mg PO DAILY tab 01/18/17 [Rx] Ipratropium/Albuterol Neb [Duoneb] 3 ml IH [id number] inh 01/18/17 [Rx] Metoprolol XL (24 HR) Succ [Toprol Xl] 50 mg PO DAILY 01/18/17 [Rx] Vitamin B Complex/Vit C/Vit E [Stresstab] 1 each PO DAILY tab 01/18/17 [Rx] Nitroglycerin [Nitrostat] 0.4 mg SL Q5M PRN 01/20/17 [History] Thiamine (B-1) [Vitamin B-1] 100 mg PO DAILY 30 Days #30 tablet 08/26/17 [Rx] Montelukast [Singulair] 10 mg PO DAILY 01/07/18 [History] Ranitidine HCl [Acid Special Educator] 150 mg PO BID 01/07/18 [History] Guaifenesin [Mucinex] 600 mg PO BID 01/14/18 [History] Ondansetron ODT [Zofran ODT] 4 mg SL Q6HR PRN 01/14/18 [History] Polyethylene Glycol 3350 [MiraLAX] 17 gm PO DAILY 01/14/18 [History] Furosemide [Lasix] 20 mg PO BIDDIURETIC tablet 01/18/18 [Rx] Gabapentin [Neurontin] 1,200 mg PO TID 3 Days #30 capsule 01/18/18 [Rx] HYDROcodone/Acet 7.5/325 mg [[place] 7.5-325 mg] 1 tab PO Q8H PRN 3 Days #10 tablet 01/18/18 [Rx] Potassium Chloride 40 meq PO BIDWM tab.er.prt 01/18/18 [Rx] acetaZOLAMIDE [Diamox] 250 mg PO BID tablet 01/18/18 [Rx] Allergies/Adverse Reactions: 3 Allergy/AdvReac Type Severity Reaction Status Date / Time azithromycin [From Zithromax] Allergy Rash Verified 08/23/17 09:52 Date of admission: 01/14/18 06:08 Primary care physician: PCP NONE Consults: 01/17/18 08:05 Consult to Editorial Clerk [CONS] Routine Reason for Consult: rtn to [facility] Discharging clinician: Bubba Marino Anticipated date of discharge: 01/18/18 - Constitutional Vitals: Temp Pulse Resp BP Pulse Ox 98.6 F 67 18 116/70 99 01/18/18 11:12 01/18/18 11:38 01/18/18 11:12 01/18/18 11:38 01/18/18 11:12 VSS Gen: not in any form of distress, morbidly obese Neuro: No focal deficits HEENT: Moist oral mucosa, anicteric, not pale, no cyanosis Chest: CTAB, no wheezes or rales Heart: S1, S2 only, no m/g/r, no JVD Abdomen: Soft, not tender, no palpably enlarged organs Extremities: Trace pedal edema, chronic venous stasis changes Skin: No rash General appearance: Present: cooperative, A&O X 3, morbidly obese, no acute distress, obese, answers questions appropriately - Patient Status Disposition: Transfer SNF Condition: Fair Functional capacity at discharge: independent ambulation Overall status at discharge: patient is progressing back to baseline - Discharge Instructions Follow Up With: NONE,PCP [Primary Care Provider] - - Diet and Activity Activity: resume usual activities as tolerated, wear oxygen at all times Diet: low fat, low cholesterol, low salt diet
--- NOTE | 2018-01-18 15:43 | Physician Discharge Referral ---
ExtendedCare Referral Info Transfer To: SNF/ECF Provider in Charge: Liz Marino Provider in Charge after Transfer: PCP Institutional Level of Care: Skilled - Diagnosis (1) DVT prophylaxis Priority: Primary Status: Acute (2) Morbid obesity with BMI of 50.0-59.9, adult Priority: Secondary Status: Chronic (3) Altered mental status Priority: Primary Status: Resolved (4) COPD (chronic obstructive pulmonary disease) Priority: Primary Status: Chronic (5) Obstructive sleep apnea Priority: Secondary Status: Suspected (6) Anemia Priority: Secondary Status: Acute (7) Acute respiratory failure with hypoxia and hypercapnia Status: Acute (8) Hypokalemia Priority: Primary Status: Acute (9) Essential hypertension Priority: Secondary Status: Chronic (10) CHF exacerbation Priority: Primary Status: Acute (11) Metabolic alkalosis Priority: Primary Status: Acute Prognosis: Good Aware of Diagnosis: Patient Aware of Prognosis: Patient - Transfer Medications Prescriptions: Gabapentin [Neurontin] 1,200 mg PO TID 3 Days #30 capsule HYDROcodone/Acet 7.5/325 mg [[place] 7.5-325 mg] 1 tab PO Q8H PRN 3 Days #10 tablet PRN Reason: Pain Home Medications: Atorvastatin [Lipitor] 40 mg PO HS 07/29/15 [History] Sertraline [Zoloft] 200 mg PO QAM 07/29/15 [History] Albuterol Sulfate [Albuterol Inhaler] 2 puff IH Q4HR PRN 10/25/15 [History] Fluticasone Propionate Nasal [Flonase] 2 spray NS DAILY 7 Days bottle 11/10/15 [Rx] Budesonide/Formoterol 160/4.5 [Symbicort 160/4.5] 2 puff IH BIDR 01/10/17 [ History] Omeprazole [PriLOSEC] 40 mg PO DAILY 01/10/17 [History] Oxygen 1 each .ROUTE AD 01/10/17 [History] Folic Acid 1 mg PO DAILY tab 01/18/17 [Rx] Ipratropium/Albuterol Neb [Duoneb] 3 ml IH [id number] inh 01/18/17 [Rx] Metoprolol XL (24 HR) Succ [Toprol Xl] 50 mg PO DAILY 01/18/17 [Rx] Vitamin B Complex/Vit C/Vit E [Stresstab] 1 each PO DAILY tab 01/18/17 [Rx] Nitroglycerin [Nitrostat] 0.4 mg SL Q5M PRN 01/20/17 [History] Thiamine (B-1) [Vitamin B-1] 100 mg PO DAILY 30 Days #30 tablet 08/26/17 [Rx] Montelukast [Singulair] 10 mg PO DAILY 01/07/18 [History] Ranitidine HCl [Acid Wrapper Stitcher] 150 mg PO BID 01/07/18 [History] Guaifenesin [Mucinex] 600 mg PO BID 01/14/18 [History] Ondansetron ODT [Zofran ODT] 4 mg SL Q6HR PRN 01/14/18 [History] Polyethylene Glycol 3350 [MiraLAX] 17 gm PO DAILY 01/14/18 [History] Furosemide [Lasix] 20 mg PO BIDDIURETIC tablet 01/18/18 [Rx] Gabapentin [Neurontin] 1,200 mg PO TID 3 Days #30 capsule 01/18/18 [Rx] HYDROcodone/Acet 7.5/325 mg [[place] 7.5-325 mg] 1 tab PO Q8H PRN 3 Days #10 tablet 01/18/18 [Rx] Potassium Chloride 40 meq PO BIDWM tab.er.prt 01/18/18 [Rx] acetaZOLAMIDE [Diamox] 250 mg PO BID tablet 01/18/18 [Rx] Allergies/Adverse Reactions: 3 Allergy/AdvReac Type Severity Reaction Status Date / Time azithromycin [From Zithromax] Allergy Rash Verified 08/23/17 09:52 - Respiratory Orders Smoking Cessation: Smoking cessation has been advised. For more information, call the [place] [employer] Quit Line at 7-595-FRHZ-NOW. - Lab Orders Lab Orders: Other (include drug levels w/frequency) (Chemistry every 3 to 4 days till K stable on current replacement) - Advance Directives Code Status: Full Code - Mobility Orders Ambulate - Rehabiliation Orders Rehab Potential: Good CERTIFICATION: I certify that the transfer of the above named patient to an Extended Care Facility is necessary for the continuing treatment of the diagnosis listed. The above information is true and accurate reflection of patient's current condition. Confidential - Redisclosure prohibited without a patient's written consent.
[2018-01-18 16:14] VITALS: BP 117/80
== END 2018-01-18 16:49 | DRG 194 ==
LOC: EMEROO 22:18 → ICNU 22:18 → SUATTDRO 01-14 06:08 → 2ANU 01-15 12:21
PROVIDERS: ADMIT Family Medicine; ATTEND Internal Medicine

== ENCOUNTER 2018-02-16 21:27 | Observation (INO) ==
[2018-02-16] MEDS ORDERED: methylPREDNISolone 125 MG/2 ML VIAL IVP ONE (21:39)
[2018-02-16] MEDS ORDERED: Levofloxacin 750 MG/150 ML 750 MG/150 ML BAG IVPB ONE (21:39)
[2018-02-16] MEDS ORDERED: Ipratropium/Albuterol Neb 3 ML IH ONE (21:40)
--- NOTE | 2018-02-16 21:42 | Emergency Department Note ---
Disposition Clinical Impression: HCAP (healthcare-associated pneumonia), Acute on chronic respiratory failure with hypoxia and hypercapnia Disposition: Admitted As Inpatient Condition: Fair Forms: ED Satisfaction Letter Time of Disposition: 23:02 SOB HPI - General Chief Complaint: ED Shortness of Breath/Dyspnea Stated Complaint: Barry Time Seen by Provider: 02/16/18 21:39 Source: patient Limitations: no limitations Nursing Notes Reviewed: Yes Vital Signs Reviewed: Yes - History of Present Illness 62-year-old male presents from home via EMS for shortness of breath. Onset yesterday notably worse today now with dyspnea with light exertion. No dyspnea rest. History of asthma and COPD. Though he himself has never smoked, he was around quite a bit of secondhand smoke. He has had a change in his chronic cough which is intermittent and been productive with green sputum. No fevers or chills. No chest pain. He uses 2 liter oxygen via nasal cannula continuously at home as well as inhalers. He notes that the only inhaler that has reliably helps him has been Symbicort however, ever since his insurance stopped paying for it he has had problems controlling his COPD. His symptoms are not improved with the submental oxygen or with his other home inhalers. PMH: Obesity, asthma, COPD, hypertension, hyperlipidemia, chronic kidney disease , congestive heart failure. ROS: Excellent positive: As above Negative: Fever, chills, nausea, vomiting, chest pains, palpitations, diaphoresis, abdominal pain - Related Data Home Medications Medication Instructions Recorded Confirmed Atorvastatin [Lipitor] 40 mg PO HS 07/29/15 01/14/18 Sertraline [Zoloft] 200 mg PO QAM 07/29/15 01/14/18 Albuterol Sulfate [Albuterol 2 puff IH Q4HR PRN 10/25/15 01/14/18 Inhaler] Budesonide/Formoterol 160/4.5 2 puff IH BIDR 01/10/17 01/14/18 [Symbicort 160/4.5] Omeprazole [PriLOSEC] 40 mg PO DAILY 01/10/17 01/14/18 Oxygen 1 each .ROUTE AD 01/10/17 01/07/18 Nitroglycerin [Nitrostat] 0.4 mg SL Q5M PRN 01/20/17 01/14/18 Montelukast [Singulair] 10 mg PO DAILY 01/07/18 01/14/18 Ranitidine HCl [Acid Marketing Finance Manager] 150 mg PO BID 01/07/18 01/14/18 Guaifenesin [Mucinex] 600 mg PO BID 01/14/18 01/14/18 Ondansetron ODT [Zofran ODT] 4 mg SL Q6HR PRN 01/14/18 01/14/18 Polyethylene Glycol 3350 [MiraLAX] 17 gm PO DAILY 01/14/18 01/14/18 Furosemide [Lasix] 40 mg PO BID 02/16/18 02/16/18 Potassium Chloride 20 meq PO BIDWM 02/16/18 02/16/18 Previous Rx's Medication Instructions Recorded Fluticasone Propionate Nasal 2 spray NS DAILY 7 Days bottle 11/10/15 [Flonase] Folic Acid 1 mg PO DAILY tab 01/18/17 Vitamin B Complex/Vit C/Vit E 1 each PO DAILY tab 01/18/17 [Stresstab] Thiamine (B-1) [Vitamin B-1] 100 mg PO DAILY 30 Days #30 tablet 08/26/17 Gabapentin [Neurontin] 1,200 mg PO TID 3 Days #30 capsule 01/18/18 HYDROcodone/Acet 7.5/325 mg [[place] 1 tab PO Q8H PRN 3 Days #10 tablet 01/18/18 7.5-325 mg] acetaZOLAMIDE [Diamox] 250 mg PO BID tablet 01/18/18 Allergies Allergy/AdvReac Type Severity Reaction Status Date / Time azithromycin [From Zithromax] Allergy Rash Verified 08/23/17 09:52 All systems ED: reviewed and negative except as stated. Review of Systems: As Per HPI Past Medical History - Past Medical History Medical history: Reports: asthma, CHF, COPD, hyperlipidemia, hypertension, renal disease, other Surgical history: Reports: other Psychiatric history: Reports: no psych history - Social History Smoking Status: Never smoker Smokeless Tobacco Status: No Alcohol use: Reports: none Drug use: Reports: none Physical Exam Vital Signs Reviewed General: Patient is alert, oriented, and in mild respiratory distress-mild tachypnea on nonrebreathing mask while receiving DuoNeb treatment. Head: atraumatic, normocephalic Eye: normal appearance, no scleral icterus, no conjunctival injection ENT: mucous membranes moist, normal external ear exam Neck: normal inspection, trachea midline, full ROM Chest: normal inspection, symmetric chest rise Respiratory: Good respiratory effort. Prolonged x-ray phase. Bilateral breath sounds have scattered coarse wheeze. No crackles or rhonchi. Cardiovascular: Regular rate and rhythm. No clicks, rubs, gallops, or murmors. Normal heart sounds. Abdomen: Bowel sounds present normoactive x-4 quadrants. Abdomen is soft, nondistended, and nontender. No guarding or rebound. No organomegaly noted. Musculoskeletal: Spontaneously moving all extremities. Skin: warm, dry, intact. Neuro: Alert and oriented x4. Sensation light touch intact. Psych: Patient's affect is appropriate for situation. - General Limitations: no limitations General appearance: alert, in no apparent distress Course Course Narrative: Patient received a single DuoNeb treatment in route by EMS. Will order an additional 2 DuoNeb treatments. Clinical concern is for acute exacerbation of COPD versus pneumonia. Low suspicion for CHF exacerbation given his pulmonary auscultation. Patient was discharged from this hospital late December. Clinical concern for acute exacerbation of COPD versus underlying pneumonia. Chest x-ray on my evaluation appears worse in the left base however, patient's chest x-ray chronically has bilateral bases. We will begin empiric vancomycin, Zosyn, Levaquin. Patient has received steroids. He is received a total of 3 DuoNeb breathing treatments (1 via EMS, to be at this emergency department). Attempted to wean his oxygen back down to his baseline 2 L. Pulmonary auscultation reveals continued bilateral diffuse wheeze. Patient symptomatically does not feel markedly better. He agrees to admission for continued evaluation and management. I discussed the patient with the admitting hospitalist. He agrees to accept the patient for continued evaluation and management for acute on chronic respiratory failure as well as healthcare associated pneumonia. He requests urine Legionella, urine strep, sputum culture, blood culture which I ordered for him. Chest X-Ray 02/16/18 21:39 IMPRESSION: Bilateral pulmonary opacities which have been present on multiple prior studies. Although the findings could represent acute or recurrent airspace disease, chronic process should be considered. If not already recently performed, CT of the chest would be helpful to further evaluate. D/ / Sunni Ventura Cha, MD / Sunni Ventura Cha, MD Interpreting Provider: Sunni Ventura Cha, MD Vital Signs Temperature 0 F L 02/16/18 21:34 Pulse Rate 0 02/16/18 21:34 Respiratory Rate 0 02/16/18 21:34 Blood Pressure 0/0 02/16/18 21:34 O2 Sat by Pulse Oximetry 97 02/16/18 21:34 Temperature 0 F L 02/16/18 21:34 Pulse Rate 67 02/16/18 21:52 Respiratory Rate 18 02/16/18 22:00 Blood Pressure 132/46 02/16/18 21:52 O2 Sat by Pulse Oximetry 100 02/16/18 22:00 Oxygen Delivery Oxygen Delivery Aerosol Mask Shortness of Breath/Dyspnea - Lab Data Result diagrams: 02/16/18 21:51 Lab Results 02/16/18 02/16/18 Range/Units 21:51 22:06 WBC 5.2 (4.3-11.1) K/mcL RBC 4.48 (4.19-5.50) M/mcL Hgb 13.2 (12.9-16.9) g/dL Hct 43.6 (37.5-50.1) % MCV 97.3 (83.0-100.0) fL MCH 29.5 (28.0-33.3) pg MCHC 30.3 L (31.6-35.5) g/dL RDW 13.2 (11.5-14.5) % Plt Count 132 L (140-400) K/mcL MPV 10.9 (9.4-12.4) fL Immature Gran % 0.4 (0-4) % Seg Neutrophils % 57.4 % Lymphocytes % 27.7 % Monocytes % 10.1 % Eosinophils % 4.2 % Basophils % 0.2 % Neutrophils # 3.0 (1.6-8.9) K/mcL Lymphocytes # 1.5 (0.6-4.6) K/mcL Monocytes # 0.5 (0.0-1.3) K/mcL Eosinophils # 0.2 (0.0-0.6) K/mcL Basophils # 0.0 (0.0-0.2) K/mcL Specimen Rejected Hemolyzed
[2018-02-16] MEDS: Ipratropium/Albuterol Neb 3 ML IH ONE (22:00)
[2018-02-16 22:03] LABS: Basophils % 0.2 %; Eosinophils # 0.2 K/mcL (0.0-0.6); Eosinophils % 4.2 %; Hematocrit 43.6 % (37.5-50.1); Hemoglobin 13.2 g/dL (12.9-16.9); Immature Granulocytes % 0.4 % (0-4); Lymphocytes # 1.5 K/mcL (0.6-4.6); Lymphocytes % 27.7 %; Mean Corpuscular HGB Conc 30.3 g/dL (31.6-35.5); Mean Corpuscular Hemoglobin 29.5 pg (28.0-33.3); Mean Corpuscular Volume 97.3 fL (83.0-100.0); Mean Platelet Volume 10.9 fL (9.4-12.4); Monocytes # 0.5 K/mcL (0.0-1.3); Monocytes % 10.1 %; Platelet Count 132 K/mcL (140-400); Red Blood Count 4.48 M/mcL (4.19-5.50); Red Cell Distribution Width 13.2 % (11.5-14.5); Segmented Neutrophils % 57.4 %
[2018-02-16] MEDS ORDERED: Piperacillin/Tazobactam 3.375 GM in 0.9 % Sodium Chloride Mini Bag 100 ML IVPB ONE (22:17)
--- NOTE | 2018-02-16 22:29 | Emergency Department Note ---
Disposition Clinical Impression: HCAP (healthcare-associated pneumonia), Acute on chronic respiratory failure with hypoxia and hypercapnia Disposition: Admitted As Inpatient Condition: Fair General Adult HPI - General Chief complaint: ED Shortness of Breath/Dyspnea Stated complaint: Barry Time Seen by Provider: 02/16/18 21:39 Source: patient Limitations: no limitations - History of Present Illness Pain Scale: 0 - Related Data Home Medications Medication Instructions Recorded Confirmed Atorvastatin [Lipitor] 40 mg PO HS 07/29/15 02/16/18 Sertraline [Zoloft] 200 mg PO QAM 07/29/15 02/16/18 Albuterol Sulfate [Albuterol 2 puff IH Q4HR PRN 10/25/15 02/16/18 Inhaler] Budesonide/Formoterol 160/4.5 2 puff IH BIDR 01/10/17 02/16/18 [Symbicort 160/4.5] Omeprazole [PriLOSEC] 40 mg PO DAILY 01/10/17 02/16/18 Oxygen 1 each .ROUTE AD 01/10/17 02/16/18 Nitroglycerin [Nitrostat] 0.4 mg SL Q5M PRN 01/20/17 02/16/18 Montelukast [Singulair] 10 mg PO DAILY 01/07/18 02/16/18 Ranitidine HCl [Acid Skiver Machine] 150 mg PO BID 01/07/18 02/16/18 Guaifenesin [Mucinex] 600 mg PO BID 01/14/18 02/16/18 Ondansetron ODT [Zofran ODT] 4 mg SL Q6HR PRN 01/14/18 02/16/18 Polyethylene Glycol 3350 [MiraLAX] 17 gm PO DAILY 01/14/18 02/16/18 Furosemide [Lasix] 40 mg PO BID 02/16/18 02/16/18 Potassium Chloride 20 meq PO BIDWM 02/16/18 02/16/18 HYDROcodone/Acet 7.5/325 mg [[place] 1 tab PO 02/17/18 7.5-325 mg] Previous Rx's Medication Instructions Recorded Fluticasone Propionate Nasal 2 spray NS DAILY 7 Days bottle 11/10/15 [Flonase] Folic Acid 1 mg PO DAILY tab 01/18/17 Vitamin B Complex/Vit C/Vit E 1 each PO DAILY tab 01/18/17 [Stresstab] Thiamine (B-1) [Vitamin B-1] 100 mg PO DAILY 30 Days #30 tablet 08/26/17 Gabapentin [Neurontin] 1,200 mg PO TID 3 Days #30 capsule 01/18/18 acetaZOLAMIDE [Diamox] 250 mg PO BID tablet 01/18/18 levoFLOXacin [Levaquin] 750 mg PO Q24H 5 Days #5 tablet 02/21/18 predniSONE [PredniSONE] 40 mg PO DAILY #10 tablet 02/21/18 Allergies Allergy/AdvReac Type Severity Reaction Status Date / Time azithromycin [From Zithromax] Allergy Rash Verified 08/23/17 09:52 Past Medical History - Past Medical History Medical history: Reports: asthma, CHF, COPD, hyperlipidemia, hypertension, renal disease, other Surgical history: Reports: other Psychiatric history: Reports: no psych history - Social History Smoking Status: Never smoker Smokeless Tobacco Status: No Alcohol use: Reports: none Drug use: Reports: none Physical Exam - General Limitations: no limitations General appearance: alert, in no apparent distress Course Vital Signs Temperature 0 F L 02/16/18 21:34 Pulse Rate 0 02/16/18 21:34 Respiratory Rate 0 02/16/18 21:34 Blood Pressure 0/0 02/16/18 21:34 O2 Sat by Pulse Oximetry 97 02/16/18 21:34 Temperature 98.3 F 02/21/18 16:49 Pulse Rate 63 02/21/18 16:49 Respiratory Rate 18 02/21/18 16:49 Blood Pressure 105/63 02/21/18 16:49 O2 Sat by Pulse Oximetry 98 02/21/18 16:49 Oxygen Delivery Oxygen Delivery Nasal Cannula Medical Decision Making - Lab Data Result diagrams: 02/21/18 07:08 02/21/18 07:08 Lab Results 02/16/18 02/16/18 02/16/18 Range/Units 21:51 22:06 22:57 WBC 5.2 (4.3-11.1) K/mcL RBC 4.48 (4.19-5.50) M/mcL Hgb 13.2 (12.9-16.9) g/dL Hct 43.6 (37.5-50.1) % MCV 97.3 (83.0-100.0) fL MCH 29.5 (28.0-33.3) pg MCHC 30.3 L (31.6-35.5) g/dL RDW 13.2 (11.5-14.5) % Plt Count 132 L (140-400) K/mcL MPV 10.9 (9.4-12.4) fL Immature Gran % 0.4 (0-4) % Seg Neutrophils % 57.4 % Lymphocytes % 27.7 % Monocytes % 10.1 % Eosinophils % 4.2 % Basophils % 0.2 % Neutrophils # 3.0 (1.6-8.9) K/mcL Lymphocytes # 1.5 (0.6-4.6) K/mcL Monocytes # 0.5 (0.0-1.3) K/mcL Eosinophils # 0.2 (0.0-0.6) K/mcL Basophils # 0.0 (0.0-0.2) K/mcL Sodium (136-145) mEq/L Potassium (3.5-5.1) mEq/L Chloride (98-107) mEq/L Carbon Dioxide (23-29) mEq/L BUN (8-23) mg/dL Creatinine (0.70-1.30) mg/dL Est GFR ( Amer) (> 60) Est GFR (Non-Af Amer) (> 60) BUN/Creatinine Ratio (6-26) Glucose (70-105) mg/dL Calculated Osmolality (280-300) Lactic Acid 0.9 (0.5-2.2) mmol/L Calcium (8.6-10.3) mg/dL Troponin I (< 0.04) ng/mL B-Natriuretic Peptide (Less than 100) pg/mL Specimen Rejected Hemolyzed 02/16/18 02/16/18 Range/Units 22:57 22:57 WBC (4.3-11.1) K/mcL RBC (4.19-5.50) M/mcL Hgb (12.9-16.9) g/dL Hct (37.5-50.1) % MCV (83.0-100.0) fL MCH (28.0-33.3) pg MCHC (31.6-35.5) g/dL RDW (11.5-14.5) % Plt Count (140-400) K/mcL MPV (9.4-12.4) fL Immature Gran % (0-4) % Seg Neutrophils % % Lymphocytes % % Monocytes % % Eosinophils % % Basophils % % Neutrophils # (1.6-8.9) K/mcL Lymphocytes # (0.6-4.6) K/mcL Monocytes # (0.0-1.3) K/mcL Eosinophils # (0.0-0.6) K/mcL Basophils # (0.0-0.2) K/mcL Sodium 138 (136-145) mEq/L Potassium 3.4 L (3.5-5.1) mEq/L Chloride 88 L (98-107) mEq/L Carbon Dioxide 45 H* (23-29) mEq/L BUN 22 (8-23) mg/dL Creatinine 1.46 H (0.70-1.30) mg/dL Est GFR ( Amer) 59 L (> 60) Est GFR (Non-Af Amer) 49 L (> 60) BUN/Creatinine Ratio 15 (6-26) Glucose 148 H (70-105) mg/dL Calculated Osmolality 292 (280-300) Lactic Acid (0.5-2.2) mmol/L Calcium 9.5 (8.6-10.3) mg/dL Troponin I < 0.03 (< 0.04) ng/mL B-Natriuretic Peptide 48 (Less than 100) pg/mL Specimen Rejected Attestation Statement - Attestation Attestation: I examined this patient and my medical decision-making was reviewed with the Resident Physician. I agree with the documented findings, disposition and treatment plan as described except to the extent set forth below. Findings consistent with pneumonia. Patient has had hypoxia in the prehospital setting which is now resolved. He is getting breathing treatments, steroids, broad- spectrum antibiotics to cover for hospital acquired pneumonia will be initiated. The patient be admitted for further management.
[2018-02-16 23:37] LABS: BUN/Creatinine Ratio 15 (6-26); Blood Urea Nitrogen 22 mg/dL (8-23); Calcium 9.5 mg/dL (8.6-10.3); Chloride 88 mEq/L (98-107); Glucose 148 mg/dL (70-105); Osmolality,Calculated 292 (280-300); Potassium 3.4 mEq/L (3.5-5.1); Sodium 138 mEq/L (136-145); Troponin I < 0.03 ng/mL (< 0.04); eGFR For Non-African Americans 49 (> 60)
[2018-02-17 00:26] LABS: Carbon Dioxide 45 mEq/L (23-29)
[2018-02-17] MEDS ORDERED: Naloxone 0.4 MG/ML INJ IVP PRN ×2 (03:41→06:31)
--- NOTE | 2018-02-17 03:54 | Internal Med History&Physical ---
<Hai Woods - Last Filed: 02/17/18 03:50> Date of Encounter: 02/17/18 Time of Encounter: 03:50 Internal Medicine - H&P: HPI Chief complaint: sob Admitted From: Home Plans for Post Hospital Care: Home History of present illness: Mr. Dumas is a 62 year old male with history of COPD on 2L O2 presented with chief, shortness of breath that started yesterday and rapidly progressed. Patient reports he started developing worsening cough, white sputum production with wheezing. He denied fevers, chills, chest pain, orthopnea, LE edema, weight gain/loss. He reports his grandchildren have had upper respiratory infections in the past week. He reports he has COPD secondary to secondhand smoking. His shortness of breath was refractory to inhaler and nebulizer treatments at home. He reports he used to be on Symbicort 1 year ago which controlled to COPD however his insurance does not cover this anymore. In the past month he has been admitted multiple times for shortness of breath secondary to CHF and COPD exacerbations. He ambulates with a walker/ independently. Past Med Surg Social Fam HX - Past Medical History Medical history: asthma, CHF, COPD, hyperlipidemia, hypertension, renal disease , other Additional medical history: POOR HISTORIAN Psychiatric history: no psych history - Past Surgical History Surgical History: other Additional surgical history: Tonsilectomy - Social History Smoking Status: Never smoker Smokeless Tobacco Status: No Alcohol use: none Drug use: none Occupational status: retired - Family History Mother Living Status: Hx Family Cardiac Disorders: Yes Hx Family Respiratory Disorders: No Hx Family Cancer: No Hx Family GI Disorders: No Hx Family Endocrine Disorder: No Hx Family Neuromuscular Disorders: No Hx Family Neurologic Disorders: No Hx Family HEENT Disorders: No Hx Family Autoimmune Disorders: No Father Living Status: Hx Family Cardiac Disorders: No Hx Family Respiratory Disorders: No Hx Family Cancer: No Hx Family GI Disorders: No Hx Family Endocrine Disorder: No Hx Family Neuromuscular Disorders: No (ALS) Hx Family Neurologic Disorders: No Hx Family HEENT Disorders: No Hx Family Autoimmune Disorders: No Internal Medicine - H&P: Meds Atorvastatin [Lipitor] 40 mg PO HS 07/29/15 [History] Sertraline [Zoloft] 200 mg PO QAM 07/29/15 [History] Albuterol Sulfate [Albuterol Inhaler] 2 puff IH Q4HR PRN 10/25/15 [History] Fluticasone Propionate Nasal [Flonase] 2 spray NS DAILY 7 Days bottle 11/10/15 [Rx] Budesonide/Formoterol 160/4.5 [Symbicort 160/4.5] 2 puff IH BIDR 01/10/17 [ History] Omeprazole [PriLOSEC] 40 mg PO DAILY 01/10/17 [History] Oxygen 1 each .ROUTE AD 01/10/17 [History] Folic Acid 1 mg PO DAILY tab 01/18/17 [Rx] Vitamin B Complex/Vit C/Vit E [Stresstab] 1 each PO DAILY tab 01/18/17 [Rx] Nitroglycerin [Nitrostat] 0.4 mg SL Q5M PRN 01/20/17 [History] Thiamine (B-1) [Vitamin B-1] 100 mg PO DAILY 30 Days #30 tablet 08/26/17 [Rx] Montelukast [Singulair] 10 mg PO DAILY 01/07/18 [History] Ranitidine HCl [Acid Wall Covering Installer] 150 mg PO BID 01/07/18 [History] Guaifenesin [Mucinex] 600 mg PO BID 01/14/18 [History] Ondansetron ODT [Zofran ODT] 4 mg SL Q6HR PRN 01/14/18 [History] Polyethylene Glycol 3350 [MiraLAX] 17 gm PO DAILY 01/14/18 [History] Gabapentin [Neurontin] 1,200 mg PO TID 3 Days #30 capsule 01/18/18 [Rx] acetaZOLAMIDE [Diamox] 250 mg PO BID tablet 01/18/18 [Rx] Furosemide [Lasix] 40 mg PO BID 02/16/18 [History] Potassium Chloride 20 meq PO BIDWM 02/16/18 [History] HYDROcodone/Acet 7.5/325 mg [[place] 7.5-325 mg] 1 tab PO 02/17/18 [History] 3 Allergy/AdvReac Type Severity Reaction Status Date / Time azithromycin [From Zithromax] Allergy Rash Verified 08/23/17 09:52 All Systems PM: A 10-system review of systems was performed and is negative for pertinent findings except as documented above in the HPI. Review of systems: Constitutional: Denies fever, chills HEENT: Denies headache, vision changes, neck pain, sore throat, rhinorrhea Heart: Denies chest pain palpitations Lungs: Reports shortness of breath, cough, sputum production. Denies hemoptysis Abdomen: Denies abdominal pain nausea vomiting diarrhea Back: Reports chronic back pain Kidney: Denies dysuria, hematuria Skin: Denies rash, lesions Extremities: Reports lower extremity swelling, denies pain Neuro: Denies numbness and tingling - Constitutional Vitals: Temp Pulse Resp BP Pulse Ox 98.4 F 60 18 118/82 95 02/17/18 03:25 02/17/18 03:25 02/17/18 03:25 02/17/18 03:25 02/17/18 03:25 Exam: General: Pleasant mild distress HEENT: Head atraumatic, normocephalic, EOMI, PERRL, neck nontender to palpation , absent lymphadenopathy, Moist Mucous Membranes, Heart: Regular rate and rhythm with no murmur Lungs: Severely diminished bilaterally with mild effort wheezing, rhonchi in the bases Abdomen: Soft nontender, nondistended positive bowel sounds Skin: warm and dry, absent rash. Extremities: 1+ pedal edema bilaterally Neuro: Alert oriented 3 Vascular: Pedal and radial pulses 2 out of 4 Internal Med - H&P Results - Labs CBC & Chem 7: 02/16/18 21:51 02/16/18 22:57 - Assessment and plan (1) Acute and chronic respiratory failure with hypoxia Current Visit: Yes Status: Chronic Assessment and plan: 62-year-old male presented with chief complaint of shortness of breath for 2 days with increasing sputum production and cough Patient had exposure to sick contact: Grandchildren had upper respiratory infections Lung exam: Severely diminished bilaterally with rhonchi Chest x-ray shows bilaterally pulmonary opacities which have been present on multiple prior studies Patient uses 2 L oxygen at home and currently is on 3 L. Likely secondary to suspected pneumonia/COPD exacerbation Patient started on prednisone, DuoNeb's, broad-spectrum antibiotics, Mucinex, incentive spirometry Blood cultures drawn. Urine Legionella and strep pneumonia antigen collected. We will also obtain a CT of the chest for further evaluation of pulmonary opacities. (2) Pneumonia Current Visit: Yes Status: Suspected Assessment and plan: Plan as above. Qualifiers: Pneumonia type: due to unspecified organism Laterality: bilateral Lung location: unspecified part of lung Qualified Code(s): J18.9 - Pneumonia, unspecified organism (3) NICKI (acute kidney injury) Current Visit: Yes Status: Acute Assessment and plan: Patient's baseline serum creatinine is 1.1 Presented with serum creatinine of 1.46 BMP shows elevated bicarbonate of 45. Likely NICKI secondary to overdiuresis from Lasix We will hold Lasix. Patient mainly need to be restarted on Lasix at a lower dose for CHF Repeat BMP. (4) History of congestive heart failure Current Visit: Yes Status: Chronic Assessment and plan: Patient has history of congestive heart failure, diastolic. Not an exacerbation. Were holding Lasix to to history of present illness. In previous admissions patient has developed metabolic alkalosis secondary to overdiuresis and was placed on Diamox. Continue Diamox He may need to be restarted on Lasix at a lower dose. (5) History of sleep apnea Current Visit: Yes Status: Chronic Assessment and plan: Patient has history of obstructive sleep apnea BiPAP ordered. (6) Hypokalemia Current Visit: Yes Status: Acute Assessment and plan: Patient presents with potassium 3.4. In the past patient has had difficulty controlling hyperkalemia secondary to diuretics. We will replace with 40 meq potassium magnesium ordered (7) DVT prophylaxis Current Visit: Yes Status: Acute Assessment and plan: heparin SQ (8) COPD exacerbation Current Visit: Yes Status: Acute Assessment and plan: Plan as above. - Time Spent With Patient Total time spent is greater than 50% in coordination of care (as documented) at patient's floor/unit and/or counseling patient: <Sanam Maddox - Last Filed: 02/17/18 06:44> Date of Encounter: 02/17/18 Internal Medicine - H&P: HPI History of present illness: Mr. Dumas is a 62 year old male All Systems PM: A 10-system review of systems was performed and is negative for pertinent findings except as documented above in the HPI. - Constitutional Vitals: Temp Pulse Resp BP Pulse Ox 98.4 F 60 26 118/82 92 02/17/18 03:25 02/17/18 03:25 02/17/18 04:35 02/17/18 04:35 02/17/18 04:35 Internal Med - H&P Results - Labs CBC & Chem 7: 02/16/18 21:51 02/16/18 22:57 - Assessment and plan (1) Pneumonia Current Visit: Yes Status: Suspected Qualifiers: Pneumonia type: due to unspecified organism Laterality: bilateral Lung location: unspecified part of lung Qualified Code(s): J18.9 - Pneumonia, unspecified organism (2) DVT prophylaxis Current Visit: Yes Status: Acute (3) Hypokalemia Current Visit: Yes Status: Acute (4) Acute and chronic respiratory failure with hypoxia Current Visit: Yes Status: Chronic (5) NICKI (acute kidney injury) Current Visit: Yes Status: Acute (6) History of congestive heart failure Current Visit: Yes Status: Chronic (7) History of sleep apnea Current Visit: Yes Status: Chronic (8) COPD exacerbation Current Visit: Yes Status: Acute - Time Spent With Patient Total time spent is greater than 50% in coordination of care (as documented) at patient's floor/unit and/or counseling patient: - Attending Attestation Patient seen and examined. Diffuse wheeze and rhonchi appreciated throughout. CXR reviewed concerning for HCAP. Continue current antibiotics and treatment for COPD. We will obtain CT imaging to better assess any new acute changes in the setting of what appears to be chronic findings when compared to previous imaging per radiology.
[2018-02-17] MEDS: Ipratropium/Albuterol Neb 3 ML IH SCH ×6 (04:20→23:18)
[2018-02-17] MEDS ORDERED: Dextrose Gel 15 GM/37.5 ML TUBE PO PRN ×2 (05:11)
[2018-02-17] MEDS ORDERED: D5% in Water 1,000 ML IVC PRN (05:11)
[2018-02-17] MEDS ORDERED: *HR* Dextrose 50 % in Water (Syg) 50 ML SYRINGE IVP PRN (05:11)
[2018-02-17] MEDS: *HR* Heparin 5,000 UNIT/ML VIAL SQ SCH ×3 (05:20→21:57)
[2018-02-17] MEDS: *HR* HYDROcodone/Acet 7.5/325 mg TABLET PO PRN ×2 (05:21→14:31)
[2018-02-17 06:31] LABS: Basophils % 0.2 %; Eosinophils % 0.2 %; Hematocrit 39.6 % (37.5-50.1); Hemoglobin 12.4 g/dL (12.9-16.9); Lymphocytes # 0.6 K/mcL (0.6-4.6); Lymphocytes % 11.2 %; Mean Corpuscular HGB Conc 31.3 g/dL (31.6-35.5); Mean Corpuscular Hemoglobin 29.7 pg (28.0-33.3); Mean Platelet Volume 11.3 fL (9.4-12.4); Monocytes # 0.1 K/mcL (0.0-1.3); Monocytes % 1.8 %; Neutrophils # 4.7 K/mcL (1.6-8.9); Platelet Count 139 K/mcL (140-400); Red Blood Count 4.17 M/mcL (4.19-5.50); Red Cell Distribution Width 13.2 % (11.5-14.5); Segmented Neutrophils % 84.6 %
[2018-02-17] MEDS ORDERED: Nitroglycerin 0.4 MG TAB.SUBL SL PRN (06:35)
[2018-02-17 07:27] LABS: Platelet Estimate Normal (Normal)
[2018-02-17] MEDS ORDERED: Insulin LISPRO 300 UNITS/3 ML VIAL SQ SCH ×2 (07:30→21:00)
[2018-02-17 08:38] LABS: BUN/Creatinine Ratio 17 (6-26); Blood Urea Nitrogen 22 mg/dL (8-23); Calcium 8.8 mg/dL (8.6-10.3); Carbon Dioxide 35 mEq/L (23-29); Chloride 93 mEq/L (98-107); Glucose 174 mg/dL (70-105); Magnesium 2.1 mg/dL (1.6-2.6); Osmolality,Calculated 296 (280-300); Phosphorous 3.4 mg/dL (2.7-4.5); Potassium 3.9 mEq/L (3.5-5.1); Sodium 139 mEq/L (136-145); eGFR For Non-African Americans 56 (> 60)
[2018-02-17] MEDS ORDERED: Furosemide 20 MG TABLET PO SCH (09:00)
[2018-02-17] MEDS: Folic Acid 1 MG TABLET PO SCH (10:01)
[2018-02-17] MEDS: acetaZOLAMIDE 250 MG TABLET PO SCH ×2 (10:01→20:09)
[2018-02-17] MEDS: Gabapentin 400 MG CAPSULE PO SCH ×3 (10:01→20:09)
[2018-02-17] MEDS: Piperacillin/Tazobactam 3.375 GM in 0.9 % Sodium Chloride Mini Bag 100 ML IVPB SCH ×2 (10:02→18:06)
[2018-02-17] MEDS: Thiamine (B-1) 100 MG TABLET PO SCH (10:02)
[2018-02-17] MEDS: predniSONE 20 MG TABLET PO SCH (10:02)
[2018-02-17] MEDS ORDERED: Levofloxacin 750 MG/150 ML 750 MG/150 ML BAG IVPB SCH (18:00)
--- NOTE | 2018-02-17 19:31 | Event Note ---
Date of Encounter: 02/17/18 Time of Encounter: 11:00 Patient seen and evaluated by nocturnalist earlier this morning and also by myself Patient is a 62-year-old male who presented with shortness of breath found to have COPD exacerbation and pneumonia. CT of the chest did confirm infectious etiology with infiltrates. Will continue coverage for healthcare acquired pneumonia
[2018-02-17] MEDS ORDERED: Ipratropium/Albuterol Neb 3 ML ONE (19:34)
[2018-02-18] MEDS: Piperacillin/Tazobactam 3.375 GM in 0.9 % Sodium Chloride Mini Bag 100 ML IVPB SCH ×3 (00:05→16:23)
[2018-02-18] MEDS: *HR* HYDROcodone/Acet 7.5/325 mg TABLET PO PRN ×3 (00:06→22:37)
[2018-02-18] MEDS: Ipratropium/Albuterol Neb 3 ML IH SCH ×6 (04:03→23:57)
[2018-02-18] MEDS: *HR* Heparin 5,000 UNIT/ML VIAL SQ SCH ×3 (05:43→22:37)
[2018-02-18] MEDS: predniSONE 20 MG TABLET PO SCH (08:33)
[2018-02-18] MEDS: Thiamine (B-1) 100 MG TABLET PO SCH (08:33)
[2018-02-18] MEDS: Gabapentin 400 MG CAPSULE PO SCH ×3 (08:33→20:22)
[2018-02-18] MEDS: acetaZOLAMIDE 250 MG TABLET PO SCH ×2 (08:33→20:21)
[2018-02-18] MEDS: Folic Acid 1 MG TABLET PO SCH (08:33)
[2018-02-18 11:22] LABS: Basophils % 0.2 %; Hematocrit 39.2 % (37.5-50.1); Immature Granulocytes % 0.6 % (0-4); Lymphocytes # 0.7 K/mcL (0.6-4.6); Lymphocytes % 13.8 %; Mean Corpuscular HGB Conc 30.6 g/dL (31.6-35.5); Mean Corpuscular Hemoglobin 29.7 pg (28.0-33.3); Mean Platelet Volume 10.8 fL (9.4-12.4); Monocytes # 0.3 K/mcL (0.0-1.3); Monocytes % 6.3 %; Neutrophils # 4.1 K/mcL (1.6-8.9); Platelet Count 149 K/mcL (140-400); Red Blood Count 4.04 M/mcL (4.19-5.50); Red Cell Distribution Width 13.1 % (11.5-14.5); Segmented Neutrophils % 79.1 %
[2018-02-18 11:32] LABS: BUN/Creatinine Ratio 17 (6-26); Blood Urea Nitrogen 22 mg/dL (8-23); Carbon Dioxide 39 mEq/L (23-29); Chloride 97 mEq/L (98-107); Glucose 174 mg/dL (70-105); Osmolality,Calculated 296 (280-300); Potassium 3.6 mEq/L (3.5-5.1); Sodium 139 mEq/L (136-145); eGFR For Non-African Americans 56 (> 60)
[2018-02-18] MEDS: levoFLOXacin 750 MG TABLET PO SCH (16:22)
--- NOTE | 2018-02-18 18:56 | Internal Med Progress Note ---
Hospitalist Progress Note - Encounter Date of Encounter: 02/18/18 Time of Encounter: 11:00 - Subjective Interval History: Patient presented with shortness of breath found to have acute on chronic respiratory failure secondary to pneumonia and COPD exacerbation. Patient reports a feeling that her this morning but not quite at baseline. Will continue to wean oxygen supplementation to baseline. - Exam Vitals: Temp Pulse Resp BP Pulse Ox 97.8 F 67 19 116/69 98 02/18/18 16:49 02/18/18 16:49 02/18/18 16:49 02/18/18 16:49 02/18/18 16:49 Exam: Gen.: Nonacute distress, alert and oriented 3 ENT: Mucosal membranes moist Respiratory: Lungs are clear to auscultation bilaterally without any wheezing rhonchi or rales Cardiovascular: Normal S1 and S2 regular rate rhythm no murmurs rubs or gallops Abdomen: Soft, nontender and nondistended with positive bowel sounds Extremities: No lower extremity edema Skin: Normal color - Assessment and Plan (1) Pneumonia Current Visit: Yes Status: Suspected Assessment and Plan: Patient with peribronchial groundglass consolidative and reticular opacities on CT of the chest. Patient afebrile and without leukocytosis Will continue coverage for healthcare acquired pneumonia with IV vancomycin, IV Zosyn and IV Levaquin. (2) COPD exacerbation Current Visit: Yes Status: Acute Assessment and Plan: Continue oral prednisone in addition to scheduled DuoNeb (3) Acute and chronic respiratory failure with hypoxia Current Visit: Yes Status: Chronic Assessment and Plan: Suspect secondary to the above Patient uses 2 L oxygen at home and currently is on 3 L. (4) Hypokalemia Current Visit: Yes Status: Acute Assessment and Plan: Resolved; continue to monitor (5) NICKI (acute kidney injury) Current Visit: Yes Status: Acute Assessment and Plan: Resolved; continue to monitor (6) History of congestive heart failure Current Visit: Yes Status: Chronic Assessment and Plan: Patient has history of congestive heart failure, diastolic. Not an exacerbation. Continue home dose of Lasix (7) History of sleep apnea Current Visit: Yes Status: Chronic Assessment and Plan: Patient has history of obstructive sleep apnea BiPAP ordered. (8) DVT prophylaxis Current Visit: Yes Status: Acute Assessment and Plan: heparin SQ - Time Spent with Patient Total time spent is greater than 50% in coordination of care (as documented) at patient's floor/unit and/or counseling patient: Internal Medicine: Result - Labs CBC & Chem 7: 02/18/18 10:54 02/18/18 10:54 Labs: Short CBC 02/18/18 Range/Units 10:54 WBC 5.2 (4.3-11.1) K/mcL Hgb 12.0 L (12.9-16.9) g/dL Hct 39.2 (37.5-50.1) % Plt Count 149 (140-400) K/mcL Neutrophils # 4.1 (1.6-8.9) K/mcL BMP 02/18/18 10:54 Sodium 139 Potassium 3.6 Chloride 97 L Carbon Dioxide 39 H BUN 22 Creatinine 1.29 Glucose 174 H Calcium 9.0 Consult Discharge Plan - Plan Referrals: NONE,PCP [Primary Care Provider] - (1) Pneumonia Qualifiers: Pneumonia type: due to unspecified organism Laterality: bilateral Lung location: unspecified part of lung Qualified Code(s): J18.9 - Pneumonia, unspecified organism
[2018-02-19] MEDS: Piperacillin/Tazobactam 3.375 GM in 0.9 % Sodium Chloride Mini Bag 100 ML IVPB SCH ×4 (00:21→23:52)
[2018-02-19] MEDS: Ipratropium/Albuterol Neb 3 ML IH SCH ×6 (03:24→23:32)
[2018-02-19] MEDS: *HR* Heparin 5,000 UNIT/ML VIAL SQ SCH ×3 (06:09→22:11)
[2018-02-19 07:03] LABS: Basophils % 0.3 %; Eosinophils % 0.5 %; Hematocrit 38.4 % (37.5-50.1); Hemoglobin 11.3 g/dL (12.9-16.9); Lymphocytes # 1.4 K/mcL (0.6-4.6); Lymphocytes % 23.1 %; Mean Corpuscular HGB Conc 29.4 g/dL (31.6-35.5); Mean Corpuscular Volume 98.5 fL (83.0-100.0); Mean Platelet Volume 11.4 fL (9.4-12.4); Monocytes # 0.8 K/mcL (0.0-1.3); Monocytes % 12.6 %; Platelet Count 118 K/mcL (140-400); Red Cell Distribution Width 13.2 % (11.5-14.5); Segmented Neutrophils % 62.5 %
[2018-02-19 07:16] LABS: Neutrophils # 3.8 K/mcL (1.6-8.9)
[2018-02-19 07:28] LABS: Calcium 8.4 mg/dL (8.6-10.3); Potassium 3.7 mEq/L (3.5-5.1)
[2018-02-19] MEDS ORDERED: Furosemide 40 MG TABLET PO SCH (08:00)
[2018-02-19] MEDS: Gabapentin 400 MG CAPSULE PO SCH ×3 (09:11→20:12)
[2018-02-19] MEDS: Thiamine (B-1) 100 MG TABLET PO SCH (09:11)
[2018-02-19] MEDS: predniSONE 20 MG TABLET PO SCH (09:11)
--- NOTE | 2018-02-19 09:11 | Internal Med Progress Note ---
Hospitalist Progress Note - Encounter Date of Encounter: 02/19/18 Time of Encounter: 11:00 - Subjective Interval History: Patient presented with shortness of breath found to have acute on chronic respiratory failure secondary to pneumonia and COPD exacerbation. Patient about at baseline O2 requirements this morning felt leukocytosis and has been afebrile Patient has developed acute renal failure overnight however and will monitor - Exam Vitals: Temp Pulse Resp BP Pulse Ox 97.7 F 59 18 105/69 100 02/19/18 07:05 02/19/18 07:05 02/19/18 07:38 02/19/18 07:05 02/19/18 07:38 Exam: Gen.: Nonacute distress, alert and oriented 3 ENT: Mucosal membranes moist Respiratory: Lungs are clear to auscultation bilaterally without any wheezing rhonchi or rales Cardiovascular: Normal S1 and S2 regular rate rhythm no murmurs rubs or gallops Abdomen: Soft, nontender and nondistended with positive bowel sounds Extremities: No lower extremity edema Skin: Normal color - Assessment and Plan (1) Pneumonia Current Visit: Yes Status: Suspected Assessment and Plan: Patient with peribronchial groundglass consolidative and reticular opacities on CT of the chest. Patient afebrile, without leukocytosis and is about at baseline for O2 supplementation Will continue coverage for healthcare acquired pneumonia with day 3 of IV vancomycin, IV Zosyn and IV Levaquin. (2) COPD exacerbation Current Visit: Yes Status: Acute Assessment and Plan: Continue oral prednisone in addition to scheduled DuoNeb (3) Acute and chronic respiratory failure with hypoxia Current Visit: Yes Status: Chronic Assessment and Plan: Suspect secondary to the above Patient uses 2 L oxygen at home and currently is on 3 L. (4) Hypokalemia Current Visit: Yes Status: Acute Assessment and Plan: Resolved; continue to monitor (5) NICKI (acute kidney injury) Current Visit: Yes Status: Acute Assessment and Plan: Patient has really developed acute renal failure overnight Will hold home dose of oral Lasix and reevaluate in the a.m. (6) History of congestive heart failure Current Visit: Yes Status: Chronic Assessment and Plan: Patient has history of congestive heart failure, diastolic. Not an exacerbation. Will hold today's dose of oral Lasix due to acute renal failure above Will restart home dose of Lasix on discharge. (7) History of sleep apnea Current Visit: Yes Status: Chronic Assessment and Plan: Patient has history of obstructive sleep apnea BiPAP ordered. (8) DVT prophylaxis Current Visit: Yes Status: Acute Assessment and Plan: heparin SQ - Time Spent with Patient Total time spent is greater than 50% in coordination of care (as documented) at patient's floor/unit and/or counseling patient: Internal Medicine: Result - Labs CBC & Chem 7: 02/19/18 06:51 02/19/18 06:51 Labs: Short CBC 02/18/18 02/19/18 Range/Units 10:54 06:51 WBC 5.2 6.0 (4.3-11.1) K/mcL Hgb 12.0 L 11.3 L (12.9-16.9) g/dL Hct 39.2 38.4 (37.5-50.1) % Plt Count 149 118 L (140-400) K/mcL Neutrophils # 4.1 3.8 (1.6-8.9) K/mcL BMP 02/18/18 02/19/18 10:54 06:51 Sodium 139 141 Potassium 3.6 3.7 Chloride 97 L 101 Carbon Dioxide 39 H 37 H BUN 22 22 Creatinine 1.29 1.51 H Glucose 174 H 123 H Calcium 9.0 8.4 L Consult Discharge Plan - Plan Referrals: NONE,PCP [Primary Care Provider] - (1) Pneumonia Qualifiers: Pneumonia type: due to unspecified organism Laterality: bilateral Lung location: unspecified part of lung Qualified Code(s): J18.9 - Pneumonia, unspecified organism
[2018-02-19] MEDS: Folic Acid 1 MG TABLET PO SCH (09:12)
[2018-02-19] MEDS: acetaZOLAMIDE 250 MG TABLET PO SCH ×2 (09:12→20:12)
[2018-02-19] MEDS: *HR* HYDROcodone/Acet 7.5/325 mg TABLET PO PRN ×2 (09:34→20:13)
[2018-02-19] MEDS: levoFLOXacin 750 MG TABLET PO SCH (16:40)
[2018-02-20] MEDS: Ipratropium/Albuterol Neb 3 ML IH SCH ×6 (03:38→23:31)
[2018-02-20] MEDS: *HR* Heparin 5,000 UNIT/ML VIAL SQ SCH ×3 (05:47→21:04)
[2018-02-20 07:04] LABS: Basophils % 0.3 %; Eosinophils % 0.5 %; Hematocrit 40.9 % (37.5-50.1); Hemoglobin 11.9 g/dL (12.9-16.9); Immature Granulocytes % 2.6 % (0-4); Immature Platelets 4.6 % (1.1-6.1); Lymphocytes # 2.2 K/mcL (0.6-4.6); Lymphocytes % 27.9 %; Mean Corpuscular HGB Conc 29.1 g/dL (31.6-35.5); Mean Corpuscular Hemoglobin 29.1 pg (28.0-33.3); Mean Platelet Volume 10.7 fL (9.4-12.4); Monocytes # 1.2 K/mcL (0.0-1.3); Monocytes % 15.7 %; Neutrophils # 4.1 K/mcL (1.6-8.9); Nucleated Red Blood Cells 0.3 /100 WBC (0); Platelet Count 158 K/mcL (140-400); Red Blood Count 4.09 M/mcL (4.19-5.50); Red Cell Distribution Width 13.2 % (11.5-14.5)
[2018-02-20] MEDS: Piperacillin/Tazobactam 3.375 GM in 0.9 % Sodium Chloride Mini Bag 100 ML IVPB SCH ×2 (08:57→16:04)
[2018-02-20] MEDS: Gabapentin 400 MG CAPSULE PO SCH ×3 (08:58→21:04)
[2018-02-20] MEDS: Folic Acid 1 MG TABLET PO SCH (08:59)
[2018-02-20] MEDS: predniSONE 20 MG TABLET PO SCH (08:59)
[2018-02-20] MEDS: acetaZOLAMIDE 250 MG TABLET PO SCH ×2 (08:59→21:03)
[2018-02-20] MEDS: Thiamine (B-1) 100 MG TABLET PO SCH (09:04)
[2018-02-20] MEDS: *HR* HYDROcodone/Acet 7.5/325 mg TABLET PO PRN ×2 (09:05→17:18)
[2018-02-20 09:14] LABS: Chloride 104 mEq/L (98-107); Potassium 5.2 mEq/L (3.5-5.1); Sodium 141 mEq/L (136-145)
[2018-02-20 09:15] LABS: BUN/Creatinine Ratio 16 (6-26); Blood Urea Nitrogen 23 mg/dL (8-23); Calcium 8.9 mg/dL (8.6-10.3); Carbon Dioxide 28 mEq/L (23-29); Glucose 123 mg/dL (70-105); Osmolality,Calculated 297 (280-300); eGFR For Non-African Americans 51 (> 60)
[2018-02-20] MEDS: levoFLOXacin 750 MG TABLET PO SCH (17:18)
--- NOTE | 2018-02-20 17:50 | Internal Med Progress Note ---
Hospitalist Progress Note - Encounter Date of Encounter: 02/20/18 Time of Encounter: 11:00 - Subjective Interval History: Patient presented with shortness of breath found to have acute on chronic respiratory failure secondary to pneumonia and COPD exacerbation. Patient about at baseline O2 requirements this morning felt leukocytosis and has been afebrile. She still reports of being short of breath with exertion. Patient has redeveloped acute renal failure with slight improvement overnight. - Exam Vitals: Temp Pulse Resp BP Pulse Ox 98.5 F 64 18 116/59 98 02/20/18 15:27 02/20/18 15:27 02/20/18 15:57 02/20/18 15:27 02/20/18 15:57 Exam: Gen.: Nonacute distress, alert and oriented 3 ENT: Mucosal membranes moist Respiratory: Lungs are clear to auscultation bilaterally without any wheezing rhonchi or rales Cardiovascular: Normal S1 and S2 regular rate rhythm no murmurs rubs or gallops Abdomen: Soft, nontender and nondistended with positive bowel sounds Extremities: No lower extremity edema Skin: Normal color - Assessment and Plan (1) Pneumonia Current Visit: Yes Status: Suspected Assessment and Plan: Patient with peribronchial groundglass consolidative and reticular opacities on CT of the chest. Patient afebrile, without leukocytosis and is about at baseline for O2 supplementation Patient however continues to report of dyspnea on exertion Will continue coverage for healthcare acquired pneumonia with day 4 of IV vancomycin, IV Zosyn and IV Levaquin. (2) COPD exacerbation Current Visit: Yes Status: Acute Assessment and Plan: Continue oral prednisone in addition to scheduled DuoNeb (3) Acute and chronic respiratory failure with hypoxia Current Visit: Yes Status: Chronic Assessment and Plan: Suspect secondary to the above Patient currently on baseline O2 requirements (4) Hypokalemia Current Visit: Yes Status: Acute Assessment and Plan: Resolved; continue to monitor (5) NICKI (acute kidney injury) Current Visit: Yes Status: Acute Assessment and Plan: Patient with improvement of renal dysfunction after holding oral Lasix;Scr 1.46- >1.29->1.29->1.51->1.41 Will continue to hold oral diuretic and monitor renal function (6) History of congestive heart failure Current Visit: Yes Status: Chronic Assessment and Plan: Patient has history of congestive heart failure, diastolic. Not an exacerbation. Will hold today's dose of oral Lasix due to acute renal failure above Will restart home dose of Lasix on discharge. (7) History of sleep apnea Current Visit: Yes Status: Chronic Assessment and Plan: Patient has history of obstructive sleep apnea BiPAP ordered. (8) DVT prophylaxis Current Visit: Yes Status: Acute Assessment and Plan: heparin SQ - Time Spent with Patient Total time spent is greater than 50% in coordination of care (as documented) at patient's floor/unit and/or counseling patient: Internal Medicine: Result - Labs CBC & Chem 7: 02/20/18 06:54 02/20/18 06:54 Labs: Short CBC 02/20/18 Range/Units 06:54 WBC 7.8 (4.3-11.1) K/mcL Hgb 11.9 L (12.9-16.9) g/dL Hct 40.9 (37.5-50.1) % Plt Count 158 (140-400) K/mcL Neutrophils # 4.1 (1.6-8.9) K/mcL BMP 02/20/18 06:54 Sodium 141 Potassium 5.2 H Chloride 104 Carbon Dioxide 28 BUN 23 Creatinine 1.40 H Glucose 123 H Calcium 8.9 - Impressions Impressions Chest X-Ray 02/20/18 11:00 IMPRESSION: Persistent bilateral lung opacities. D/ / Delmar Viveros MD / Delmar Viveros MD Interpreting Provider: Delmar Viveros MD Consult Discharge Plan - Plan Referrals: NONE,PCP [Primary Care Provider] - (1) Pneumonia Qualifiers: Pneumonia type: due to unspecified organism Laterality: bilateral Lung location: unspecified part of lung Qualified Code(s): J18.9 - Pneumonia, unspecified organism
[2018-02-21] MEDS: *HR* HYDROcodone/Acet 7.5/325 mg TABLET PO PRN ×2 (03:23→14:35)
[2018-02-21] MEDS: Ipratropium/Albuterol Neb 3 ML IH SCH ×4 (03:55→16:05)
[2018-02-21] MEDS: *HR* Heparin 5,000 UNIT/ML VIAL SQ SCH ×2 (05:14→14:35)
[2018-02-21 08:12] LABS: Basophils % 0.7 %; Nucleated Red Blood Cells 0.3 /100 WBC (0); Platelet Count 149 K/mcL (140-400)
[2018-02-21 08:13] LABS: Eosinophils # 0.1 K/mcL (0.0-0.6); Eosinophils % 1.5 %; Hemoglobin 11.1 g/dL (12.9-16.9); Immature Granulocytes % 2.9 % (0-4); Lymphocytes # 1.3 K/mcL (0.6-4.6); Lymphocytes % 21.5 %; Mean Corpuscular HGB Conc 28.5 g/dL (31.6-35.5); Mean Corpuscular Hemoglobin 28.8 pg (28.0-33.3); Mean Corpuscular Volume 101.3 fL (83.0-100.0); Monocytes # 0.6 K/mcL (0.0-1.3); Monocytes % 10.1 %; Neutrophils # 3.9 K/mcL (1.6-8.9); Red Blood Count 3.85 M/mcL (4.19-5.50); Red Cell Distribution Width 13.5 % (11.5-14.5); Segmented Neutrophils % 63.3 %
[2018-02-21 08:20] LABS: BUN/Creatinine Ratio 17 (6-26); Blood Urea Nitrogen 23 mg/dL (8-23); Carbon Dioxide 33 mEq/L (23-29); Chloride 104 mEq/L (98-107); Glucose 98 mg/dL (70-105); Potassium 4.2 mEq/L (3.5-5.1); Sodium 141 mEq/L (136-145); eGFR For Non-African Americans 53 (> 60)
[2018-02-21 08:21] LABS: Calcium 8.9 mg/dL (8.6-10.3); Osmolality,Calculated 296 (280-300)
[2018-02-21] MEDS: Piperacillin/Tazobactam 3.375 GM in 0.9 % Sodium Chloride Mini Bag 100 ML IVPB SCH ×2 (09:00)
[2018-02-21] MEDS: Gabapentin 400 MG CAPSULE PO SCH ×2 (09:01→14:35)
[2018-02-21] MEDS: Folic Acid 1 MG TABLET PO SCH (09:01)
[2018-02-21] MEDS: predniSONE 20 MG TABLET PO SCH (09:01)
[2018-02-21] MEDS: Thiamine (B-1) 100 MG TABLET PO SCH (09:02)
[2018-02-21] MEDS: acetaZOLAMIDE 250 MG TABLET PO SCH (09:02)
--- NOTE | 2018-02-21 13:09 | Electrocardiograph Report ---
[address] [place] [address] Test Date: 2018-02-16 Pat Name: Juancarlos Dumas Department: [id number] Room: 2A63 Gender: M General Contractor: : 1955 Requested By: Loco Nava Order Number: [id number] Reading MD: Meng Quinteros Measurements Intervals [place] Rate: 66 P: 38 [place]: 169 QRS: 0 QRSD: 115 T: 51 QT: 419 QTc: 439 Interpretive Statements Sinus rhythm Left atrial enlargement Nonspecific intraventricular conduction delay Electronically Signed On 02-21-2018 13:07:54 EDT by Meng Quinteros
[2018-02-21 16:51] VITALS: BP 105/63
--- NOTE | 2018-02-21 17:13 | Discharge Summary ---
- NOTES TO OUTPATIENT PROVIDER Notes to Outpatient Provider: Patient will follow-up with primary care provider for resolution of symptoms of healthcare acquired pneumonia and COPD exacerbation Date of Encounter: 02/21/18 Time of Encounter: 11:00 - Discharge Diagnosis (1) Pneumonia Priority: Primary Status: Suspected Qualifiers: Pneumonia type: due to unspecified organism Laterality: bilateral Lung location: unspecified part of lung Qualified Code(s): J18.9 - Pneumonia, unspecified organism (2) COPD exacerbation Priority: Primary Status: Acute (3) Acute and chronic respiratory failure with hypoxia Priority: Primary Status: Chronic (4) Hypokalemia Priority: Secondary Status: Acute (5) NICKI (acute kidney injury) Priority: Secondary Status: Acute (6) History of congestive heart failure Priority: Secondary Status: Chronic (7) History of sleep apnea Priority: Secondary Status: Chronic Hospital course: Patient is a 62-year-old male with past medical history significant for COPD oxygen dependent, hypertension, hyperlipidemia and CHF who presented with shortness of breath. She also reported of worsening cough in addition to wheezing. Patients hospital stay he was treated for healthcare acquired pneumonia and COPD exacerbation. Since acute on chronic respiratory failure resolved and he turned to baseline O2 supplementation. Patient will be discharged to complete a 5 day course of Levaquin and prednisone. Patient will follow up with his primary care provider. - Time Spent with Patient Total time spent providing and/or coordinating discharge services: Less than 30 minutes - Discharge Medications Prescriptions: levoFLOXacin [Levaquin] 750 mg PO Q24H 5 Days #5 tablet predniSONE [PredniSONE] 40 mg PO DAILY #10 tablet Home Medications: Atorvastatin [Lipitor] 40 mg PO HS 07/29/15 [History] Sertraline [Zoloft] 200 mg PO QAM 07/29/15 [History] Albuterol Sulfate [Albuterol Inhaler] 2 puff IH Q4HR PRN 10/25/15 [History] Fluticasone Propionate Nasal [Flonase] 2 spray NS DAILY 7 Days bottle 11/10/15 [Rx] Budesonide/Formoterol 160/4.5 [Symbicort 160/4.5] 2 puff IH BIDR 01/10/17 [ History] Omeprazole [PriLOSEC] 40 mg PO DAILY 01/10/17 [History] Oxygen 1 each .ROUTE AD 01/10/17 [History] Folic Acid 1 mg PO DAILY tab 01/18/17 [Rx] Vitamin B Complex/Vit C/Vit E [Stresstab] 1 each PO DAILY tab 01/18/17 [Rx] Nitroglycerin [Nitrostat] 0.4 mg SL Q5M PRN 01/20/17 [History] Thiamine (B-1) [Vitamin B-1] 100 mg PO DAILY 30 Days #30 tablet 08/26/17 [Rx] Montelukast [Singulair] 10 mg PO DAILY 01/07/18 [History] Ranitidine HCl [Acid [facility] Administrator] 150 mg PO BID 01/07/18 [History] Guaifenesin [Mucinex] 600 mg PO BID 01/14/18 [History] Ondansetron ODT [Zofran ODT] 4 mg SL Q6HR PRN 01/14/18 [History] Polyethylene Glycol 3350 [MiraLAX] 17 gm PO DAILY 01/14/18 [History] Gabapentin [Neurontin] 1,200 mg PO TID 3 Days #30 capsule 01/18/18 [Rx] acetaZOLAMIDE [Diamox] 250 mg PO BID tablet 01/18/18 [Rx] Furosemide [Lasix] 40 mg PO BID 02/16/18 [History] Potassium Chloride 20 meq PO BIDWM 02/16/18 [History] HYDROcodone/Acet 7.5/325 mg [[place] 7.5-325 mg] 1 tab PO 02/17/18 [History] levoFLOXacin [Levaquin] 750 mg PO Q24H 5 Days #5 tablet 02/21/18 [Rx] predniSONE [PredniSONE] 40 mg PO DAILY #10 tablet 02/21/18 [Rx] Allergies/Adverse Reactions: 3 Allergy/AdvReac Type Severity Reaction Status Date / Time azithromycin [From Zithromax] Allergy Rash Verified 08/23/17 09:52 Date of admission: 02/17/18 00:04 Primary care physician: PCP NONE - Constitutional Vitals: Temp Pulse Resp BP Pulse Ox 98.3 F 63 18 105/63 98 02/21/18 16:49 02/21/18 16:49 02/21/18 16:49 02/21/18 16:49 02/21/18 16:49 Exam: Gen.: Nonacute distress, alert and oriented 3 Respiratory: Lungs are clear to auscultation bilaterally without any wheezing rhonchi or rales Cardiovascular: Normal S1 and S2 regular rate rhythm no murmurs rubs or gallops - Patient Status Disposition: Home, Self-Care Condition: Fair - Discharge Instructions Follow Up With: NONE,PCP [Primary Care Provider] -
[2018-02-21] MEDS: levoFLOXacin 750 MG TABLET PO SCH (17:45)
--- NOTE | 2018-02-21 17:45 | Physician Discharge Referral ---
Home Health/Hosp Referral Info Transfer to: Home Health - Diagnosis (1) Pneumonia Status: Suspected (2) COPD exacerbation Status: Acute (3) Acute and chronic respiratory failure with hypoxia Status: Chronic (4) Hypokalemia Status: Acute (5) NICKI (acute kidney injury) Status: Acute (6) History of congestive heart failure Status: Chronic (7) History of sleep apnea Status: Chronic - Respiratory Orders Smoking Cessation: Smoking cessation has been advised. For more information, call the [place] [employer] Quit Line at 8-729-TNQP-NOW. - Services Needed Following services are medically necessary services: Nursing, Home Health Aide, Physical Therapy - Transfer Medications Prescriptions: levoFLOXacin [Levaquin] 750 mg PO Q24H 5 Days #5 tablet predniSONE [PredniSONE] 40 mg PO DAILY #10 tablet Home Medications: Atorvastatin [Lipitor] 40 mg PO HS 07/29/15 [History] Sertraline [Zoloft] 200 mg PO QAM 07/29/15 [History] Albuterol Sulfate [Albuterol Inhaler] 2 puff IH Q4HR PRN 10/25/15 [History] Fluticasone Propionate Nasal [Flonase] 2 spray NS DAILY 7 Days bottle 11/10/15 [Rx] Budesonide/Formoterol 160/4.5 [Symbicort 160/4.5] 2 puff IH BIDR 01/10/17 [ History] Omeprazole [PriLOSEC] 40 mg PO DAILY 01/10/17 [History] Oxygen 1 each .ROUTE AD 01/10/17 [History] Folic Acid 1 mg PO DAILY tab 01/18/17 [Rx] Vitamin B Complex/Vit C/Vit E [Stresstab] 1 each PO DAILY tab 01/18/17 [Rx] Nitroglycerin [Nitrostat] 0.4 mg SL Q5M PRN 01/20/17 [History] Thiamine (B-1) [Vitamin B-1] 100 mg PO DAILY 30 Days #30 tablet 08/26/17 [Rx] Montelukast [Singulair] 10 mg PO DAILY 01/07/18 [History] Ranitidine HCl [Acid R[facility] Radiology] 150 mg PO BID 01/07/18 [History] Guaifenesin [Mucinex] 600 mg PO BID 01/14/18 [History] Ondansetron ODT [Zofran ODT] 4 mg SL Q6HR PRN 01/14/18 [History] Polyethylene Glycol 3350 [MiraLAX] 17 gm PO DAILY 01/14/18 [History] Gabapentin [Neurontin] 1,200 mg PO TID 3 Days #30 capsule 01/18/18 [Rx] acetaZOLAMIDE [Diamox] 250 mg PO BID tablet 01/18/18 [Rx] Furosemide [Lasix] 40 mg PO BID 02/16/18 [History] Potassium Chloride 20 meq PO BIDWM 02/16/18 [History] HYDROcodone/Acet 7.5/325 mg [[place] 7.5-325 mg] 1 tab PO 02/17/18 [History] levoFLOXacin [Levaquin] 750 mg PO Q24H 5 Days #5 tablet 02/21/18 [Rx] predniSONE [PredniSONE] 40 mg PO DAILY #10 tablet 02/21/18 [Rx] Allergies/Adverse Reactions: 3 Allergy/AdvReac Type Severity Reaction Status Date / Time azithromycin [From Zithromax] Allergy Rash Verified 08/23/17 09:52 Certification: Further, I certify that my clinical findings support that this patient is homebound (i.e. absences from home require considerable and taxing effort and are for medical reasons or caodaism services or infrequently or short duration when for other reasons) because: Homebound Reason: Patient requires assistance of a person or device to safely leave home Attestation: My signature below is to certify that this patient is under my care and that I, or nurse practitioner, or a physician's produce assistant working with me, has a face-to -face encounter with this patient.
[2018-02-21] MEDS ORDERED: Aminoglycoside Consult 1 EACH MC ONE (18:22)
== END 2018-02-21 18:23 | disposition home or self-care (01) ==
LOC: EMEROOARM 21:27 → 2ANU 21:27 → SUATTDRO 02-17 06:31
PROVIDERS: ADMIT Internal Medicine; ATTEND Hospitalist

== ENCOUNTER 2018-03-20 01:16 | Inpatient (IN) ==
[2018-03-20] MEDS ORDERED: methylPREDNISolone 125 MG/2 ML VIAL IVP ONE (01:26)
--- NOTE | 2018-03-20 01:35 | Emergency Department Note ---
Disposition Clinical Impression: Acute respiratory failure with hypoxia and hypercapnia Diarrhea Qualifiers: Diarrhea type: unspecified type Qualified Code(s): R19.7 - Diarrhea, unspecified Disposition: Admitted As Inpatient Condition: Fair Time of Disposition: 04:16 SOB HPI - General Chief Complaint: ED Shortness of Breath/Dyspnea Stated Complaint: SOB Time Seen by Provider: 03/20/18 01:26 Source: patient, EMS Mode of arrival: EMS Limitations: no limitations Nursing Notes Reviewed: Yes Vital Signs Reviewed: Yes - History of Present Illness 62-year-old male presents to the emergency department for shortness of breath, hypoxia, diarrhea. Patient states the shortness of breath began approximately 2 days ago said is been off-and-on for the past couple days but stayed overnight after causing to call EMS to get further evaluated. He normally is on 2 L of oxygen at home at all times. He is bedbound. Patient is very obese. He does have history of COPD and CHF. He says is unsure which one this is. He has been doing his nebulizers as prescribed. Patient's never had acute coronary syndrome or stents placed. EMS when they arrived he was 80% on his 2 L so they put him on 6 L nasal cannula not brought him up to the mid 90s. Patient is continuing on that here in the emergency department. He says that he also has had diarrhea for approximately 2 weeks. He noticed it approximately after he stopped his Levaquin treatment due to pneumonia approximately 2 weeks ago. He has had no fevers or chills he has no abdominal pain with this. He has not had a green sputum but has been coughing up mucus and has had a cough. He has a have any headaches. Patient has no other complaints including no headaches, blurry vision, neck pain, back pain, chest pain, abdominal pain, nausea, vomiting, fevers, chills, changes in bowel movements, pain or tingling down the arms or legs or generalized weakness - Related Data Home Medications Medication Instructions Recorded Confirmed Atorvastatin [Lipitor] 40 mg PO HS 07/29/15 02/16/18 Sertraline [Zoloft] 200 mg PO QAM 07/29/15 02/16/18 Albuterol Sulfate [Albuterol 2 puff IH Q4HR PRN 10/25/15 02/16/18 Inhaler] Budesonide/Formoterol 160/4.5 2 puff IH BIDR 01/10/17 02/16/18 [Symbicort 160/4.5] Omeprazole [PriLOSEC] 40 mg PO DAILY 01/10/17 02/16/18 Oxygen 1 each .ROUTE AD 01/10/17 02/16/18 Nitroglycerin [Nitrostat] 0.4 mg SL Q5M PRN 01/20/17 02/16/18 Montelukast [Singulair] 10 mg PO DAILY 01/07/18 02/16/18 Ranitidine HCl [Acid Golf [employer]er] 150 mg PO BID 01/07/18 02/16/18 Guaifenesin [Mucinex] 600 mg PO BID 01/14/18 02/16/18 Ondansetron ODT [Zofran ODT] 4 mg SL Q6HR PRN 01/14/18 02/16/18 Polyethylene Glycol 3350 [MiraLAX] 17 gm PO DAILY 01/14/18 02/16/18 Furosemide [Lasix] 40 mg PO BID 02/16/18 02/16/18 Potassium Chloride 20 meq PO BIDWM 02/16/18 02/16/18 HYDROcodone/Acet 7.5/325 mg [[place] 1 tab PO 02/17/18 7.5-325 mg] Previous Rx's Medication Instructions Recorded Fluticasone Propionate Nasal 2 spray NS DAILY 7 Days bottle 11/10/15 [Flonase] Folic Acid 1 mg PO DAILY tab 01/18/17 Vitamin B Complex/Vit C/Vit E 1 each PO DAILY tab 01/18/17 [Stresstab] Thiamine (B-1) [Vitamin B-1] 100 mg PO DAILY 30 Days #30 tablet 08/26/17 Gabapentin [Neurontin] 1,200 mg PO TID 3 Days #30 capsule 01/18/18 acetaZOLAMIDE [Diamox] 250 mg PO BID tablet 01/18/18 levoFLOXacin [Levaquin] 750 mg PO Q24H 5 Days #5 tablet 02/21/18 predniSONE [PredniSONE] 40 mg PO DAILY #10 tablet 02/21/18 Allergies Allergy/AdvReac Type Severity Reaction Status Date / Time azithromycin [From Zithromax] Allergy Rash Verified 08/23/17 09:52 All systems ED: reviewed and negative except as stated. Review of Systems: As Per HPI Past Medical History - Past Medical History Attestation: Yes The following information was validated with the patient. Source: patient Medical history: Reports: asthma, CHF, COPD, hyperlipidemia, hypertension, renal disease, other Surgical history: Reports: other Psychiatric history: Reports: no psych history - Social History Smoking Status: Never smoker Smokeless Tobacco Status: No Alcohol use: Reports: none Drug use: Reports: none Physical Exam - General Limitations: no limitations General appearance: alert, in no apparent distress - Head Head exam: atraumatic, normocephalic, normal inspection - Eye Eye exam: Present: normal appearance, PERRL, EOMI - ENT ENT exam: normal exam, normal oropharynx, mucous membranes moist - Neck Neck exam: Present: normal inspection, full ROM, trachea midline - Chest Chest inspection: Present: normal inspection, symmetric chest wall rise - Respiratory Respiratory exam: Present: normal lung sounds bilaterally, other (Mild crackles in the bases bilaterally). Absent: respiratory distress, wheezes - Cardiovascular Cardiovascular exam: Present: regular rate, normal rhythm, normal heart sounds - Abdominal Exam Abdominal exam: Present: soft, Non-Tender, normal bowel sounds. Absent: tenderness, distention, guarding, rebound, rigidity - Extremities Exam Extremities exam: Present: normal inspection, full ROM. Absent: tenderness, pedal edema - Expanded Lower Extremity Exam Neurovascular/Tendon exam: Present: normal capillary refill. Absent: pulse deficit, motor deficit, sensory deficit, tendon deficit - Back Exam Back exam: Present: normal inspection, full ROM. Absent: tenderness, CVA tenderness (R), CVA tenderness (L) - Neurological Exam Neurological exam: Present: alert, oriented X3 - Skin Skin exam: Present: warm, dry, intact, normal color Course Course Narrative: We will do CHF/COPD/pneumonia workup including CBC, BMP, BNP, urinalysis, blood cultures 2, chest x-ray EKG as well as a lactate. Patient is not wheezing at this times will not give DuoNeb's. We will give Solu-Medrol. Antibiotics pending results. Patient is not septic or meet Sirs criteria at this time. Vital Signs Temperature 98.3 F 03/20/18 01:22 Pulse Rate 59 03/20/18 01:22 Respiratory Rate 15 03/20/18 01:22 Blood Pressure 118/49 03/20/18 01:22 O2 Sat by Pulse Oximetry 96 03/20/18 01:22 Temperature 98.3 F 03/20/18 01:22 Pulse Rate 68 03/20/18 03:08 Respiratory Rate 20 03/20/18 03:08 Blood Pressure 135/95 03/20/18 03:08 O2 Sat by Pulse Oximetry 100 03/20/18 03:08 Oxygen Delivery Oxygen Delivery Nasal Cannula Shortness of Breath/Dyspnea - MDM Narrative Medical decision making narrative: 62-year-old male here for hypercapnia hypoxia and respiratory distress. Patient was originally hypoxic in the 80s after he on oxygen mask at 6 L he increased to 93. Patient states he has been having diarrhea. We are unable to get a stool sample here. Chest x-ray only showed chronic changes there is no acute changes no signs of pneumonia. We did get blood cultures which are still pending. Patient's did not have a leukocytosis CBC was otherwise normal. We did get a BMP which did show an elevated CO2 is greater than 45 this is highest it ever been. Patient's probably hypercapnic as well due to the COPD. Patient was not wheezing on exam and did get a nebulized treatment prior to coming here. So we did not give any DuoNeb via the emergency department. I did give him 125 mg Solu-Medrol. A due to patient's hypoxia as well as hypercapnia we felt that patient needed be admitted for further evaluation. I spoke with the hospitalist Dr. Rider who agreed to admit the patient to their service. Patient is admitted in stable condition. Chest X-Ray 03/20/18 01:26 IMPRESSION: Relatively stable bilateral airspace disease. Stability over time favors a chronic process. D/ / Andrew Frankel MD / Andrew Frankel MD Interpreting Provider: Andrew Frankel MD - Medical Records Medical records reviewed: Yes I reviewed the patient's medical records. - Lab Data Lab results reviewed: Yes I reviewed the patient's lab results. Result diagrams: 03/20/18 01:37 03/20/18 01:37 Lab Results 03/20/18 03/20/18 03/20/18 Range/Units 01:37 01:37 01:37 WBC 4.8 (4.3-11.1) K/mcL RBC 4.24 (4.19-5.50) M/mcL Hgb 12.2 L (12.9-16.9) g/dL Hct 41.3 (37.5-50.1) % MCV 97.4 (83.0-100.0) fL MCH 28.8 (28.0-33.3) pg MCHC 29.5 L (31.6-35.5) g/dL RDW 13.5 (11.5-14.5) % Plt Count 169 (140-400) K/mcL MPV 11.0 (9.4-12.4) fL Immature Gran % 0.4 (0-4) % Seg Neutrophils % 49.9 % Lymphocytes % 30.6 % Monocytes % 10.3 % Eosinophils % 8.2 % Basophils % 0.6 % Neutrophils # 2.4 (1.6-8.9) K/mcL Lymphocytes # 1.5 (0.6-4.6) K/mcL Monocytes # 0.5 (0.0-1.3) K/mcL Eosinophils # 0.4 (0.0-0.6) K/mcL Basophils # 0.0 (0.0-0.2) K/mcL PT 11.5 (9.4-12.1) Seconds INR 1.0 APTT 39.6 H (26.0-36.0) Seconds Sodium 141 (136-145) mEq/L Potassium 4.2 (3.5-5.1) mEq/L Chloride 90 L (98-107) mEq/L Carbon Dioxide > 45 H* (23-29) mEq/L BUN 17 (8-23) mg/dL Creatinine 1.50 H (0.70-1.30) mg/dL Est GFR ( Amer) 57 L (> 60) Est GFR (Non-Af Amer) 47 L (> 60) BUN/Creatinine Ratio 11 (6-26) Glucose 115 H (70-105) mg/dL Calculated Osmolality 294 (280-300) Lactic Acid (0.5-2.2) mmol/L Calcium 9.8 (8.6-10.3) mg/dL Total Bilirubin 0.5 (0.3-1.0) mg/dL Direct Bilirubin 0.2 (0.0-0.2) mg/dL Indirect Bilirubin 0.3 (0.0-1.2) mg/dL AST 24 (13-39) Units/L ALT 10 (7-52) Units/L Alkaline Phosphatase 94 (34-104) Units/L Troponin I < 0.03 (< 0.04) ng/mL B-Natriuretic Peptide (Less than 100) pg/mL Serum Total Protein 7.4 (6.4-8.9) g/dL Albumin 3.9 (3.5-5.7) g/dL Globulin 3.5 (2.4-3.5) g/dL Albumin/Globulin Ratio 1.1 (1.1-2.2) Urine Color (Yellow) Urine Clarity (Clear) Urine pH (5.0-8.0) pH Units Ur Specific [place] (1.010-1.025) Urine Protein (Neg-Trace) mg/dL Urine Glucose (UA) (Normal) mg/dL Urine Ketones (Negative) mg/dL Urine Blood (Negative) Urine Nitrite (Negative) Urine Bilirubin (Negative) Urine Urobilinogen (Normal) mg/dL Ur Leukocyte Esterase (Negative) Ur Culture Indicated? (NO) 03/20/18 03/20/18 03/20/18 Range/Units 01:37 01:42 02:34 WBC (4.3-11.1) K/mcL RBC (4.19-5.50) M/mcL Hgb (12.9-16.9) g/dL Hct (37.5-50.1) % MCV (83.0-100.0) fL MCH (28.0-33.3) pg MCHC (31.6-35.5) g/dL RDW (11.5-14.5) % Plt Count (140-400) K/mcL MPV (9.4-12.4) fL Immature Gran % (0-4) % Seg Neutrophils % % Lymphocytes % % Monocytes % % Eosinophils % % Basophils % % Neutrophils # (1.6-8.9) K/mcL Lymphocytes # (0.6-4.6) K/mcL Monocytes # (0.0-1.3) K/mcL Eosinophils # (0.0-0.6) K/mcL Basophils # (0.0-0.2) K/mcL PT (9.4-12.1) Seconds INR APTT (26.0-36.0) Seconds Sodium (136-145) mEq/L Potassium (3.5-5.1) mEq/L Chloride (98-107) mEq/L Carbon Dioxide (23-29) mEq/L BUN (8-23) mg/dL Creatinine (0.70-1.30) mg/dL Est GFR ( Amer) (> 60) Est GFR (Non-Af Amer) (> 60) BUN/Creatinine Ratio (6-26) Glucose (70-105) mg/dL Calculated Osmolality (280-300) Lactic Acid 0.6 (0.5-2.2) mmol/L Calcium (8.6-10.3) mg/dL Total Bilirubin (0.3-1.0) mg/dL Direct Bilirubin (0.0-0.2) mg/dL Indirect Bilirubin (0.0-1.2) mg/dL AST (13-39) Units/L ALT (7-52) Units/L Alkaline Phosphatase (34-104) Units/L Troponin I (< 0.04) ng/mL B-Natriuretic Peptide 140 H (Less than 100) pg/mL Serum Total Protein (6.4-8.9) g/dL Albumin (3.5-5.7) g/dL Globulin (2.4-3.5) g/dL Albumin/Globulin Ratio (1.1-2.2) Urine Color Yellow (Yellow) Urine Clarity Clear (Clear) Urine pH 7.0 (5.0-8.0) pH Units Ur Specific [place] 1.016 (1.010-1.025) Urine Protein Negative (Neg-Trace) mg/dL Urine Glucose (UA) Normal (Normal) mg/dL Urine Ketones Negative (Negative) mg/dL Urine Blood Negative (Negative) Urine Nitrite Negative (Negative) Urine Bilirubin Negative (Negative) Urine Urobilinogen Normal (Normal) mg/dL Ur Leukocyte Esterase Negative (Negative) Ur Culture Indicated? NO (NO) - Radiology Data Radiology results reviewed: Yes I reviewed the patient's radiology results.
[2018-03-20 02:07] LABS: Bilirubin,Urine Negative (Negative); Blood,Urine Negative (Negative); Clarity,Urine Clear (Clear); Color,Urine Yellow (Yellow); Glucose,Urine (UA) Normal (Normal); Ketones,Urine Negative (Negative); Leukocyte Esterase,Urine Negative (Negative); Nitrite,Urine Negative (Negative); Protein,Urine Negative (Neg-Trace); Specific Gravity,Urine 1.016 (1.010-1.025); Urobilinogen,Urine Normal (Normal)
[2018-03-20 02:28] LABS: Basophils % 0.6 %; Eosinophils # 0.4 K/mcL (0.0-0.6); Eosinophils % 8.2 %; Hematocrit 41.3 % (37.5-50.1); Hemoglobin 12.2 g/dL (12.9-16.9); Immature Granulocytes % 0.4 % (0-4); Lymphocytes # 1.5 K/mcL (0.6-4.6); Lymphocytes % 30.6 %; Mean Corpuscular HGB Conc 29.5 g/dL (31.6-35.5); Mean Corpuscular Hemoglobin 28.8 pg (28.0-33.3); Mean Corpuscular Volume 97.4 fL (83.0-100.0); Monocytes # 0.5 K/mcL (0.0-1.3); Monocytes % 10.3 %; Neutrophils # 2.4 K/mcL (1.6-8.9); Platelet Count 169 K/mcL (140-400); Red Blood Count 4.24 M/mcL (4.19-5.50); Red Cell Distribution Width 13.5 % (11.5-14.5); Segmented Neutrophils % 49.9 %
[2018-03-20 02:31] LABS: Prothrombin Time 11.5 Seconds (9.4-12.1)
[2018-03-20 02:34] LABS: Activated Partial Thrombo Time 39.6 Seconds (26.0-36.0)
[2018-03-20 02:48] LABS: Troponin I < 0.03 ng/mL (< 0.04)
[2018-03-20 03:01] LABS: Alanine Aminotransferase 10 Units/L (7-52); Albumin 3.9 g/dL (3.5-5.7); Albumin/Globulin Ratio 1.1 (1.1-2.2); Alkaline Phosphatase 94 Units/L (34-104); Aspartate Amino Transferase 24 Units/L (13-39); BUN/Creatinine Ratio 11 (6-26); Bilirubin,Direct 0.2 mg/dL (0.0-0.2); Bilirubin,Indirect 0.3 mg/dL (0.0-1.2); Bilirubin,Total 0.5 mg/dL (0.3-1.0); Blood Urea Nitrogen 17 mg/dL (8-23); Calcium 9.8 mg/dL (8.6-10.3); Carbon Dioxide > 45 mEq/L (23-29); Chloride 90 mEq/L (98-107); Globulin 3.5 g/dL (2.4-3.5); Glucose 115 mg/dL (70-105); Osmolality,Calculated 294 (280-300); Potassium 4.2 mEq/L (3.5-5.1); Sodium 141 mEq/L (136-145); Total Protein 7.4 g/dL (6.4-8.9); eGFR For Non-African Americans 47 (> 60)
[2018-03-20] MEDS ORDERED: Ondansetron ODT 4 MG TAB.RAPDIS SL PRN (04:05)
[2018-03-20] MEDS ORDERED: Ipratropium/Albuterol Neb 3 ML IH PRN (04:13)
--- NOTE | 2018-03-20 04:28 | Internal Med History&Physical ---
Date of Encounter: 03/20/18 Time of Encounter: 04:24 Internal Medicine - H&P: HPI Chief complaint: SOB Admitted From: Home Plans for Post Hospital Care: Home History of present illness: 62-year-old morbidly obese male with a history of hypertension, hyperlipidemia and COPD on 2L home O2 who presents to the emergency department for shortness of breath, hypoxia and diarrhea. The patient states the shortness of breath began approximately 2 days ago, has been off-and-on for the past couple days but persisted overnight causing him to call EMS to get further evaluated. He normally is on 2 L of oxygen at home at all times. He is bedbound. It is reported that when EMS arrived he was 80% on his 2 L so they put him on 6 L nasal cannula and brought him up to the mid 90s. He continued on that here in the emergency department. He says that he also has had diarrhea for approximately 2 weeks. He noticed it approximately after he stopped his levofloxacin treatment Rx for pneumonia approximately 2 weeks ago. He has had no fevers or chills or abdominal pain with this. Patient has no other complaints including no headaches, blurry vision, neck pain, back pain, chest pain, abdominal pain, nausea, vomiting, fevers, chills, pain or tingling down the arms or legs or generalized weakness. He is admitted for further observation. Past Med Surg Social Fam HX - Past Medical History Medical history: asthma, CHF, COPD, hyperlipidemia, hypertension, renal disease , other Additional medical history: POOR HISTORIAN Psychiatric history: no psych history - Past Surgical History Surgical History: other Additional surgical history: Tonsilectomy - Social History Smoking Status: Never smoker Smokeless Tobacco Status: No Alcohol use: none Drug use: none - Family History Mother Living Status: Hx Family Cardiac Disorders: Yes Hx Family Respiratory Disorders: No Hx Family Cancer: No Hx Family GI Disorders: No Hx Family Endocrine Disorder: No Hx Family Neuromuscular Disorders: No Hx Family Neurologic Disorders: No Hx Family HEENT Disorders: No Hx Family Autoimmune Disorders: No Father Living Status: Hx Family Cardiac Disorders: No Hx Family Respiratory Disorders: No Hx Family Cancer: No Hx Family GI Disorders: No Hx Family Endocrine Disorder: No Hx Family Neuromuscular Disorders: No (ALS) Hx Family Neurologic Disorders: No Hx Family HEENT Disorders: No Hx Family Autoimmune Disorders: No Internal Medicine - H&P: Meds Atorvastatin [Lipitor] 40 mg PO HS 07/29/15 [History] Sertraline [Zoloft] 200 mg PO QAM 07/29/15 [History] Albuterol Sulfate [Albuterol Inhaler] 2 puff IH Q4HR PRN 10/25/15 [History] Fluticasone Propionate Nasal [Flonase] 2 spray NS DAILY 7 Days bottle 11/10/15 [Rx] Budesonide/Formoterol 160/4.5 [Symbicort 160/4.5] 2 puff IH BIDR 01/10/17 [ History] Omeprazole [PriLOSEC] 40 mg PO DAILY 01/10/17 [History] Oxygen 1 each .ROUTE AD 01/10/17 [History] Folic Acid 1 mg PO DAILY tab 01/18/17 [Rx] Vitamin B Complex/Vit C/Vit E [Stresstab] 1 each PO DAILY tab 01/18/17 [Rx] Nitroglycerin [Nitrostat] 0.4 mg SL Q5M PRN 01/20/17 [History] Thiamine (B-1) [Vitamin B-1] 100 mg PO DAILY 30 Days #30 tablet 08/26/17 [Rx] Montelukast [Singulair] 10 mg PO DAILY 01/07/18 [History] Ranitidine HCl [Acid Embedded Software Engineer] 150 mg PO BID 01/07/18 [History] Guaifenesin [Mucinex] 600 mg PO BID 01/14/18 [History] Ondansetron ODT [Zofran ODT] 4 mg SL Q6HR PRN 01/14/18 [History] Polyethylene Glycol 3350 [MiraLAX] 17 gm PO DAILY 01/14/18 [History] Gabapentin [Neurontin] 1,200 mg PO TID 3 Days #30 capsule 01/18/18 [Rx] acetaZOLAMIDE [Diamox] 250 mg PO BID tablet 01/18/18 [Rx] Furosemide [Lasix] 40 mg PO BID 02/16/18 [History] Potassium Chloride 20 meq PO BIDWM 02/16/18 [History] HYDROcodone/Acet 7.5/325 mg [[place] 7.5-325 mg] 1 tab PO 02/17/18 [History] levoFLOXacin [Levaquin] 750 mg PO Q24H 5 Days #5 tablet 02/21/18 [Rx] predniSONE [PredniSONE] 40 mg PO DAILY #10 tablet 02/21/18 [Rx] 3 Allergy/AdvReac Type Severity Reaction Status Date / Time azithromycin [From Zithromax] Allergy Rash Verified 08/23/17 09:52 All Systems PM: A 10-system review of systems was performed and is negative for pertinent findings except as documented above in the HPI. - Constitutional Vitals: Temp Pulse Resp BP Pulse Ox 98.3 F 68 20 96/64 100 03/20/18 01:22 03/20/18 03:08 03/20/18 04:11 03/20/18 04:11 03/20/18 03:08 Exam: Vitals: Reviewed General: Ssverely obese man, sitting OOB to chair. No signs of respiratory distress evident. Unkempt and soiled in stool. Skin: Warm and supple. HEENT: Moist mucous membranes. No conjunctivae pallor. Neck: No lymphadenopathy. No JVD. No carotid bruits. No palpable thyroid. Chest: Minimal expiratory wheezes in both lung barboza. Heart: Normal S1 & S2; rhythmic. Abdomen: soft and non-tender to palpation. Extremities: No clubbing, cyanosis. Neurological: Awake, alert and oriented to person, place and time. No focal deficits. Psych: Affect appropriate. Internal Med - H&P Results - Labs CBC & Chem 7: 03/20/18 01:37 03/20/18 01:37 - Assessment and plan (1) Acute and chronic respiratory failure with hypoxia Current Visit: No Status: Chronic Assessment and plan: Likely compounded by underyling COPD mixed with obesity hypoventilation syndrome. At this time he appears comfortable on nasal cannula and does not need Bipap. Will order CPAP qhs. Received a dose of steroids in the ER. Will start Duoneb x 1 then continue prn as he appears to only have mild symptoms. No need for ongoing systemic steroids or abx; will continue LABA/ICS inhaler therapy. Respiratory watch. (2) NICKI (acute kidney injury) Current Visit: Yes Status: Acute Assessment and plan: Possibly related to GI fluid losses leading to reduced volemia. Will hold home diuretics and give gentle hydration to assess response to this. (3) Essential hypertension Current Visit: Yes Status: Chronic Assessment and plan: Will controlled. Home meds can be resumed. (4) Morbid obesity with BMI of 40.0-44.9, adult Current Visit: Yes Status: Chronic Assessment and plan: Low fat diet ordered. Nutrionist support needed. Bariatric surgery eval will be helpful. (5) Diarrhea Current Visit: Yes Status: Acute Assessment and plan: Unclear etiology. No systemic signs of illness however. Given his history of multiple hospitalizations and recent use of antibiotics, especially a fluoroquinolone, it would be prudent to rule out C.diff. Assay ordered and should be collected if watery stool is again noted. Qualifiers: Diarrhea type: presumed infectious Qualified Code(s): R19.7 - Diarrhea, unspecified (6) DVT prophylaxis Current Visit: Yes Status: Acute Assessment and plan: SubQ heparin indicated - Time Spent With Patient Total time spent is greater than 50% in coordination of care (as documented) at patient's floor/unit and/or counseling patient: Greater than 35 minutes
[2018-03-20] MEDS ORDERED: Ipratropium/Albuterol Neb 3 ML IH ONE (04:30)
[2018-03-20] MEDS ORDERED: Ringers Solution, Lactated 1,000 ML IVC SCH (04:45)
[2018-03-20] MEDS: *HR* Heparin 5,000 UNIT/ML VIAL SQ SCH ×3 (05:15→21:13)
[2018-03-20 05:22] LABS: ABG Base Excess 16 mEq/L (-2 to 3); ABG HCO3 45 mEq/L (21-27); ABG Oxygen Saturation 74 % (95-98); ABG PCO2 67 mmHg (35-45); ABG PH 7.43 pH Units (7.32-7.45); ABG PO2 40 mmHg (85-104); ABG TCO2 47 mEq/L (20-26)
--- NOTE | 2018-03-20 06:07 | Emergency Department Note ---
Disposition Clinical Impression: Acute respiratory failure with hypoxia and hypercapnia Diarrhea Qualifiers: Diarrhea type: unspecified type Qualified Code(s): R19.7 - Diarrhea, unspecified Disposition: Admitted As Inpatient Condition: Fair General Adult HPI - General Chief complaint: ED Shortness of Breath/Dyspnea Stated complaint: SOB Time Seen by Provider: 03/20/18 01:26 Source: patient, EMS Mode of arrival: EMS Limitations: no limitations Nursing Notes Reviewed: Yes Vital Signs Reviewed: Yes - History of Present Illness Pain Scale: 7 - Related Data Home Medications Medication Instructions Recorded Confirmed Atorvastatin [Lipitor] 40 mg PO HS 07/29/15 02/16/18 Sertraline [Zoloft] 200 mg PO QAM 07/29/15 02/16/18 Albuterol Sulfate [Albuterol 2 puff IH Q4HR PRN 10/25/15 02/16/18 Inhaler] Budesonide/Formoterol 160/4.5 2 puff IH BIDR 01/10/17 02/16/18 [Symbicort 160/4.5] Omeprazole [PriLOSEC] 40 mg PO DAILY 01/10/17 02/16/18 Oxygen 1 each .ROUTE AD 01/10/17 02/16/18 Nitroglycerin [Nitrostat] 0.4 mg SL Q5M PRN 01/20/17 02/16/18 Montelukast [Singulair] 10 mg PO DAILY 01/07/18 02/16/18 Ranitidine HCl [Acid Brickmason Supervisor] 150 mg PO BID 01/07/18 02/16/18 Guaifenesin [Mucinex] 600 mg PO BID 01/14/18 02/16/18 Ondansetron ODT [Zofran ODT] 4 mg SL Q6HR PRN 01/14/18 02/16/18 Polyethylene Glycol 3350 [MiraLAX] 17 gm PO DAILY 01/14/18 02/16/18 Furosemide [Lasix] 40 mg PO BID 02/16/18 02/16/18 Potassium Chloride 20 meq PO BIDWM 02/16/18 02/16/18 HYDROcodone/Acet 7.5/325 mg [[place] 1 tab PO 02/17/18 7.5-325 mg] Previous Rx's Medication Instructions Recorded Fluticasone Propionate Nasal 2 spray NS DAILY 7 Days bottle 11/10/15 [Flonase] Folic Acid 1 mg PO DAILY tab 01/18/17 Vitamin B Complex/Vit C/Vit E 1 each PO DAILY tab 01/18/17 [Stresstab] Thiamine (B-1) [Vitamin B-1] 100 mg PO DAILY 30 Days #30 tablet 08/26/17 Gabapentin [Neurontin] 1,200 mg PO TID 3 Days #30 capsule 01/18/18 acetaZOLAMIDE [Diamox] 250 mg PO BID tablet 01/18/18 levoFLOXacin [Levaquin] 750 mg PO Q24H 5 Days #5 tablet 02/21/18 predniSONE [PredniSONE] 40 mg PO DAILY #10 tablet 02/21/18 Allergies Allergy/AdvReac Type Severity Reaction Status Date / Time azithromycin [From Zithromax] Allergy Rash Verified 08/23/17 09:52 Past Medical History - Past Medical History Medical history: Reports: asthma, CHF, COPD, hyperlipidemia, hypertension, renal disease, other Surgical history: Reports: other Psychiatric history: Reports: no psych history - Social History Smoking Status: Never smoker Smokeless Tobacco Status: No Alcohol use: Reports: none Drug use: Reports: none Physical Exam - General Limitations: no limitations General appearance: alert, in no apparent distress Course Vital Signs Temperature 98.3 F 03/20/18 01:22 Pulse Rate 59 03/20/18 01:22 Respiratory Rate 15 03/20/18 01:22 Blood Pressure 118/49 03/20/18 01:22 O2 Sat by Pulse Oximetry 96 03/20/18 01:22 Temperature 98.5 F 03/20/18 04:39 Pulse Rate 61 03/20/18 04:39 Respiratory Rate 18 03/20/18 05:11 Blood Pressure 112/64 03/20/18 04:39 O2 Sat by Pulse Oximetry 88 03/20/18 05:11 Oxygen Delivery Oxygen Delivery Nasal Cannula Medical Decision Making - Medical Records Medical records reviewed: Yes I reviewed the patient's medical records. - Lab Data Lab results reviewed: Yes I reviewed the patient's lab results. Result diagrams: 03/20/18 01:37 03/20/18 01:37 Lab Results 03/20/18 03/20/18 03/20/18 Range/Units 01:37 01:37 01:37 WBC 4.8 (4.3-11.1) K/mcL RBC 4.24 (4.19-5.50) M/mcL Hgb 12.2 L (12.9-16.9) g/dL Hct 41.3 (37.5-50.1) % MCV 97.4 (83.0-100.0) fL MCH 28.8 (28.0-33.3) pg MCHC 29.5 L (31.6-35.5) g/dL RDW 13.5 (11.5-14.5) % Plt Count 169 (140-400) K/mcL MPV 11.0 (9.4-12.4) fL Immature Gran % 0.4 (0-4) % Seg Neutrophils % 49.9 % Lymphocytes % 30.6 % Monocytes % 10.3 % Eosinophils % 8.2 % Basophils % 0.6 % Neutrophils # 2.4 (1.6-8.9) K/mcL Lymphocytes # 1.5 (0.6-4.6) K/mcL Monocytes # 0.5 (0.0-1.3) K/mcL Eosinophils # 0.4 (0.0-0.6) K/mcL Basophils # 0.0 (0.0-0.2) K/mcL PT 11.5 (9.4-12.1) Seconds INR 1.0 APTT 39.6 H (26.0-36.0) Seconds Sodium 141 (136-145) mEq/L Potassium 4.2 (3.5-5.1) mEq/L Chloride 90 L (98-107) mEq/L Carbon Dioxide > 45 H* (23-29) mEq/L BUN 17 (8-23) mg/dL Creatinine 1.50 H (0.70-1.30) mg/dL Est GFR ( Amer) 57 L (> 60) Est GFR (Non-Af Amer) 47 L (> 60) BUN/Creatinine Ratio 11 (6-26) Glucose 115 H (70-105) mg/dL Calculated Osmolality 294 (280-300) Lactic Acid (0.5-2.2) mmol/L Calcium 9.8 (8.6-10.3) mg/dL Total Bilirubin 0.5 (0.3-1.0) mg/dL Direct Bilirubin 0.2 (0.0-0.2) mg/dL Indirect Bilirubin 0.3 (0.0-1.2) mg/dL AST 24 (13-39) Units/L ALT 10 (7-52) Units/L Alkaline Phosphatase 94 (34-104) Units/L Troponin I < 0.03 (< 0.04) ng/mL B-Natriuretic Peptide (Less than 100) pg/mL Serum Total Protein 7.4 (6.4-8.9) g/dL Albumin 3.9 (3.5-5.7) g/dL Globulin 3.5 (2.4-3.5) g/dL Albumin/Globulin Ratio 1.1 (1.1-2.2) Urine Color (Yellow) Urine Clarity (Clear) Urine pH (5.0-8.0) pH Units Ur Specific Bearden (1.010-1.025) Urine Protein (Neg-Trace) mg/dL Urine Glucose (UA) (Normal) mg/dL Urine Ketones (Negative) mg/dL Urine Blood (Negative) Urine Nitrite (Negative) Urine Bilirubin (Negative) Urine Urobilinogen (Normal) mg/dL Ur Leukocyte Esterase (Negative) Ur Culture Indicated? (NO) 03/20/18 03/20/18 03/20/18 Range/Units 01:37 01:42 02:34 WBC (4.3-11.1) K/mcL RBC (4.19-5.50) M/mcL Hgb (12.9-16.9) g/dL Hct (37.5-50.1) % MCV (83.0-100.0) fL MCH (28.0-33.3) pg MCHC (31.6-35.5) g/dL RDW (11.5-14.5) % Plt Count (140-400) K/mcL MPV (9.4-12.4) fL Immature Gran % (0-4) % Seg Neutrophils % % Lymphocytes % % Monocytes % % Eosinophils % % Basophils % % Neutrophils # (1.6-8.9) K/mcL Lymphocytes # (0.6-4.6) K/mcL Monocytes # (0.0-1.3) K/mcL Eosinophils # (0.0-0.6) K/mcL Basophils # (0.0-0.2) K/mcL PT (9.4-12.1) Seconds INR APTT (26.0-36.0) Seconds Sodium (136-145) mEq/L Potassium (3.5-5.1) mEq/L Chloride (98-107) mEq/L Carbon Dioxide (23-29) mEq/L BUN (8-23) mg/dL Creatinine (0.70-1.30) mg/dL Est GFR ( Amer) (> 60) Est GFR (Non-Af Amer) (> 60) BUN/Creatinine Ratio (6-26) Glucose (70-105) mg/dL Calculated Osmolality (280-300) Lactic Acid 0.6 (0.5-2.2) mmol/L Calcium (8.6-10.3) mg/dL Total Bilirubin (0.3-1.0) mg/dL Direct Bilirubin (0.0-0.2) mg/dL Indirect Bilirubin (0.0-1.2) mg/dL AST (13-39) Units/L ALT (7-52) Units/L Alkaline Phosphatase (34-104) Units/L Troponin I (< 0.04) ng/mL B-Natriuretic Peptide 140 H (Less than 100) pg/mL Serum Total Protein (6.4-8.9) g/dL Albumin (3.5-5.7) g/dL Globulin (2.4-3.5) g/dL Albumin/Globulin Ratio (1.1-2.2) Urine Color Yellow (Yellow) Urine Clarity Clear (Clear) Urine pH 7.0 (5.0-8.0) pH Units Ur Specific Bearden 1.016 (1.010-1.025) Urine Protein Negative (Neg-Trace) mg/dL Urine Glucose (UA) Normal (Normal) mg/dL Urine Ketones Negative (Negative) mg/dL Urine Blood Negative (Negative) Urine Nitrite Negative (Negative) Urine Bilirubin Negative (Negative) Urine Urobilinogen Normal (Normal) mg/dL Ur Leukocyte Esterase Negative (Negative) Ur Culture Indicated? NO (NO) - Radiology Data Radiology results reviewed: Yes I reviewed the patient's radiology results. Chest X-Ray 03/20/18 01:26 IMPRESSION: Relatively stable bilateral airspace disease. Stability over time favors a chronic process. D/ / Andrew Frankel MD / Andrew Frankel MD Interpreting Provider: Andrew Frankel MD - EKG Data EKG #1 EKG attestation: Yes I reviewed and interpreted this EKG. EKG results narrative: EKG shows a normal sinus rhythm with ventricular rate is 62. No acute ST segment elevation or depression. No arrhythmia or ectopy. Attestation Statement - Attestation Attestation: I, Sabas De Paz MD, personally evaluated this patient and discussed their management with the resident physician. I reviewed the resident's note and agree with the documented findings, medical decision making, and plan of care. 62-year-old male presents to the emergency department with a complaint of increasing shortness of breath for 2 days prior to arrival. Patient has history of COPD as well as CHF. He also complains of having diarrhea for about 2 weeks. No melena, hematemesis, or hematochezia. No fever. There has been some cough which is mostly clear to white although he says earlier today there was a little bit of greenish colored sputum. No chest pain. EMS reports that on their arrival the patient was on his home oxygen at 2 L and his oxygen saturation was 80%. On examination patient is a well-developed obese male in mild respiratory distress. He is alert and oriented 3. There is no cyanosis or diaphoresis. Breath sounds are decreased bilaterally with some scattered bilateral dry crackles which sound like pulmonary fibrosis. No wheezes noted. Heart regular rate and rhythm. Abdomen is soft and nontender with slightly increased bowel sounds. EKG shows a sinus rhythm with no acute changes. Chest x-ray shows chronic changes. Labs reviewed. The hospitalist, Dr. Maddox, was consulted and accepted admission of the patient.
[2018-03-20] MEDS: Vitamin B Complex/Vit C/Vit E 1 EACH TABLET PO SCH (08:26)
[2018-03-20] MEDS: Thiamine (B-1) 100 MG TABLET PO SCH (08:26)
[2018-03-20] MEDS: Gabapentin 400 MG CAPSULE PO SCH ×3 (08:26→21:07)
[2018-03-20] MEDS: Famotidine 20 MG TABLET PO SCH ×2 (08:26→21:08)
[2018-03-20] MEDS: Folic Acid 1 MG TABLET PO SCH (08:26)
[2018-03-20] MEDS: Fluticasone Propionate Nasal 50 MCG/SPRAY BOTTLE NS SCH (08:27)
[2018-03-20] MEDS ORDERED: acetaZOLAMIDE 250 MG TABLET PO SCH (09:00)
--- NOTE | 2018-03-20 09:58 | Event Note ---
Date of Encounter: 03/20/18 Time of Encounter: 09:50 Seen and assessed. Agree with plan per night team. Patient has acute hypoxic hypercapneic respiratory failure likely secondary to acute worsening of COPD and obesity hypoventilation syndrome Will place on BIPAP, start on round the clock nebs, and antibiotics. Pt desaturated this am, will obtain repeat ABG. Repeat ABG showed resp acidosis and hypercapnia. Transfer to step down unit. Repeat ABG in an hr Also complained of diarrhea., send for c diff if watery in light of recent exposure to antibiotics. will continue on levaquin for now
[2018-03-20] MEDS ORDERED: Levofloxacin 750 MG/150 ML 750 MG/150 ML BAG IVPB SCH (10:00)
[2018-03-20] MEDS: Budesonide/Formoterol 160/4.5 1 PUFF INH IH SCH ×2 (10:00→19:37)
[2018-03-20 10:14] LABS: ABG Base Excess 17 mEq/L (-2 to 3); ABG HCO3 51 mEq/L (21-27); ABG Oxygen Saturation 94 % (95-98); ABG PCO2 117 mmHg (35-45); ABG PH 7.25 pH Units (7.32-7.45); ABG PO2 89 mmHg (85-104); ABG TCO2 54 mEq/L (20-26); Blood Gas Pressure Support 14 cm H2O
[2018-03-20] MEDS: Ipratropium/Albuterol Neb 3 ML IH SCH ×4 (12:32→22:55)
[2018-03-20 12:36] LABS: ABG Base Excess 17 mEq/L (-2 to 3); ABG HCO3 52 mEq/L (21-27); ABG Oxygen Saturation 94 % (95-98); ABG PCO2 126 mmHg (35-45); ABG PH 7.23 pH Units (7.32-7.45); ABG PO2 94 mmHg (85-104); ABG TCO2 56 mEq/L (20-26); Blood Gas Modality BiLevel; Blood Gas PEEP 6 cm H2O; Blood Gas Pressure Support 12 cm H2O
[2018-03-20 14:02] LABS: BUN/Creatinine Ratio 16 (6-26); Blood Urea Nitrogen 18 mg/dL (8-23); Calcium 9.3 mg/dL (8.6-10.3); Carbon Dioxide 44 mEq/L (23-29); Chloride 92 mEq/L (98-107); Glucose 157 mg/dL (70-105); Osmolality,Calculated 291 (280-300); Potassium 4.5 mEq/L (3.5-5.1); Sodium 138 mEq/L (136-145); eGFR For Non-African Americans > 60 (> 60)
[2018-03-20 15:11] LABS: ABG Base Excess 15 mEq/L (-2 to 3); ABG HCO3 51 mEq/L (21-27); ABG Oxygen Saturation 66 % (95-98); ABG PCO2 131 mmHg (35-45); ABG PH 7.19 pH Units (7.32-7.45); ABG PO2 47 mmHg (85-104); ABG TCO2 55 mEq/L (20-26); Blood Gas Modality NIV; Blood Gas PEEP 6 cm H2O; Blood Gas Pressure Support 20 cm H2O; Blood Gas Respiration Rate 12; Blood Gas VT 600 cc
[2018-03-20] MEDS ORDERED: Isovue-370 500 ML INFUS..BTL IV ONE (15:30)
[2018-03-20] MEDS ORDERED: 0.9 % Sodium Chloride 1,000 ML ONE (16:07)
[2018-03-20 16:26] LABS: ABG Base Excess 15 mEq/L (-2 to 3); ABG HCO3 50 mEq/L (21-27); ABG Oxygen Saturation 98 % (95-98); ABG PCO2 126 mmHg (35-45); ABG PO2 137 mmHg (85-104); ABG TCO2 53 mEq/L (20-26); Blood Gas Modality AVAPD; Blood Gas PEEP 6 cm H2O; Blood Gas Respiration Rate 12; Blood Gas VT 600 cc
[2018-03-20] MEDS: methylPREDNISolone 125 MG/2 ML VIAL IVP SCH ×2 (17:06→23:50)
--- NOTE | 2018-03-20 17:15 | Pulmonology Consult Note ---
<Dakota Lyon S - Last Filed: 03/20/18 16:37> Date of Encounter: 03/20/18 Time of Encounter: 16:38 Assessment and Plan (1) Altered mental status Current Visit: No Status: Resolved Patient much more alert now but mental status is still altered Patient on BIPAP at FiOs 40%, saturating at 100% Recent ABG pH 7.2, pCO2 126, pO2 137, HCO3 50 Will repeat ABG Qualifiers: Altered mental status type: delirium Qualified Code(s): R41.0 - Disorientation, unspecified (2) CHF (congestive heart failure) Current Visit: No Status: Acute Last echo (01/05) shows "grossly normal LV systolic function" Will continue to monitor I&Os Patient doesn't display edema or JVD No rales on lung auscultation Qualifiers: Heart failure type: systolic Heart failure chronicity: acute on chronic Qualified Code(s): I50.23 - Acute on chronic systolic (congestive) heart failure (3) Obstructive sleep apnea Current Visit: No Status: Suspected Likely due to obesity Patient currently on BIPAP with 40% FiO2, saturating at 100% Head of bed is elevated (4) Acute respiratory failure with hypoxia and hypercapnia Current Visit: Yes Status: Acute Likely 2/2 COPD exacerbation and obesity hypoventilation syndrome Patient on BIPAP with FiO2 of 40%, saturating at 100% Received a dose of steroids in ED On methylprednisolone 60 mg IV Q8hr Started on levofloxacin (day 1) Will repeat ABG Continue symbicort, fluticasone, duonebs (5) Diarrhea Current Visit: Yes Status: Acute Recent use of levofloxacin for PNA Patient afebrile, normal WBCs C. diff ordered Qualifiers: Diarrhea type: presumed infectious Qualified Code(s): R19.7 - Diarrhea, unspecified (6) DVT prophylaxis Current Visit: No Status: Acute Subcutaneous heparin History of Present Illness Consult date: 03/20/18 Requesting physician: Oleg Aguilar Reason for consult: other (respiratory failure) Chief complaint: SOB History of present illness: 62 year old male with PMHx of COPD on 2L home O2, CHF, HTN, HLD presented to ED via ambulance with SOB. Patient was 80% on 2L so he was increased to 6L nasal cannula, which increased his O2 to mid 90s. Patient has a recent history of pneumonia for which he was treated with levaquin 2 weeks ago and also complains of diarrhea since stopping the antibiotic. Chest xray shows chronic bilateral airspace disease. EKG showed sinus rhythm. Patient was admitted for observation. Initial ABG showed hypercapnia. Patient was placed on BIPAP and started on nebulizer treatments. At 3:30 PM, the nurse was called for AMS and worsening lethargy. Repeat ABGs have been concerning for respiratory acidosis. Most recent shows pH 7.2, pCO2 126, HCO3 50. Patient transferred to ICU for worsening respiratory failure and further airway management. In ICU, patient is awake and alert, but still confused. Past Med Surg Social Fam HX - Past Medical History Medical history: asthma, CHF, COPD, hyperlipidemia, hypertension, renal disease , other Additional medical history: POOR HISTORIAN Psychiatric history: no psych history - Past Surgical History Surgical History: other Additional surgical history: Tonsilectomy - Social History Smoking Status: Never smoker Smokeless Tobacco Status: No Alcohol use: none Drug use: none - Family History Mother Living Status: Age at : 72 Cause of : Dementia Hx Family Cardiac Disorders: Yes Hx Family Respiratory Disorders: No Hx Family Cancer: No Hx Family GI Disorders: No Hx Family Endocrine Disorder: No Hx Family Neuromuscular Disorders: No Hx Family Neurologic Disorders: No Hx Family HEENT Disorders: No Hx Family Autoimmune Disorders: No Father Living Status: Age at : 73 Hx Family Cardiac Disorders: No Hx Family Respiratory Disorders: No Hx Family Cancer: No Hx Family GI Disorders: No Hx Family Endocrine Disorder: No Hx Family Neuromuscular Disorders: No (ALS) Hx Family Neurologic Disorders: No Hx Family HEENT Disorders: No Hx Family Autoimmune Disorders: No Medications and Allergies Atorvastatin [Lipitor] 40 mg PO HS 07/29/15 [History] Sertraline [Zoloft] 200 mg PO QAM 07/29/15 [History] Albuterol Sulfate [Albuterol Inhaler] 2 puff IH Q4HR PRN 10/25/15 [History] Fluticasone Propionate Nasal [Flonase] 2 spray NS DAILY 7 Days bottle 11/10/15 [Rx] Omeprazole [PriLOSEC] 40 mg PO DAILY 01/10/17 [History] Oxygen 1 each .ROUTE AD 01/10/17 [History] Folic Acid 1 mg PO DAILY tab 01/18/17 [Rx] Nitroglycerin [Nitrostat] 0.4 mg SL Q5M PRN 01/20/17 [History] Montelukast [Singulair] 10 mg PO DAILY 01/07/18 [History] Ranitidine HCl [Acid Broadcast Operations Engineer] 150 mg PO BID 01/07/18 [History] Guaifenesin [Mucinex] 600 mg PO BID 01/14/18 [History] Ondansetron ODT [Zofran ODT] 4 mg SL Q6HR PRN 01/14/18 [History] Polyethylene Glycol 3350 [MiraLAX] 17 gm PO DAILY 01/14/18 [History] Furosemide [Lasix] 40 mg PO BID 02/16/18 [History] Potassium Chloride 20 meq PO BIDWM 02/16/18 [History] HYDROcodone/Acet 7.5/325 mg [[place] 7.5-325 mg] 1 tab PO Q8H PRN 02/17/18 [ History] Fluticasone Propionate [Flovent Hfa] 88 mcg IH BID 03/20/18 [History] Gabapentin [Neurontin] 800 mg PO TID 03/20/18 [History] Metoprolol Succinate [Toprol Xl] 100 mg PO DAILY 03/20/18 [History] Triamterene/HCTZ 37.5/25mg [Dyazide] 1 each PO DAILY 03/20/18 [History] 3 Allergy/AdvReac Type Severity Reaction Status Date / Time azithromycin [From Zithromax] Allergy Rash Verified 08/23/17 09:52 All Systems: The remainder of the systems were reviewed and are negative Physical Examination Vital Signs: Vital Signs, Last 4 Hours Temp Pulse Resp BP Pulse Ox 03/20/18 15:13 97.9 F 73 18 154/84 100 03/20/18 13:19 13 99 General appearance: alert, other (confused) Eyes: nonicteric Effort: other (on BIPAP) Auscultation: bilateral: wheezes (mild expiratory) Cardiovascular: regular rate and rhythm Gastrointestinal: soft, non-tender Integumentary: normal Extremities: no cyanosis, no edema other affect normal Ventilator Settings Ventilator Settings: Ventilator Settings, Last 8 Hours Positive End Expiratory 14 Pressure Results - Laboratory Findings CBC and BMP: 03/20/18 01:37 03/20/18 13:20 ABG ABG pH 7.20 pH Units (7.32-7.45) L* 03/20/18 16:19 ABG pCO2 126 mmHg (35-45) H* 03/20/18 16:19 ABG pO2 137 mmHg (85-104) H D 03/20/18 16:19 ABG O2 Saturation 98 % (95-98) 03/20/18 16:19 PT/INR, D-dimer PT 11.5 Seconds (9.4-12.1) 03/20/18 01:37 Abnormal lab findings: Abnormal lab results Hgb 12.2 g/dL (12.9-16.9) L 03/20/18 01:37 MCHC 29.5 g/dL (31.6-35.5) L 03/20/18 01:37 APTT 39.6 Seconds (26.0-36.0) H 03/20/18 01:37 ABG pH 7.20 pH Units (7.32-7.45) L* 03/20/18 16:19 ABG pCO2 126 mmHg (35-45) H* 03/20/18 16:19 ABG pO2 137 mmHg (85-104) H D 03/20/18 16:19 ABG HCO3 50 mEq/L (21-27) H 03/20/18 16:19 ABG Total CO2 53 mEq/L (20-26) H 03/20/18 16:19 ABG Base Excess 15 mEq/L (-2 to 3) H 03/20/18 16:19 Chloride 92 mEq/L (98-107) L 03/20/18 13:20 Carbon Dioxide 44 mEq/L (23-29) H* 03/20/18 13:20 Glucose 157 mg/dL (70-105) H 03/20/18 13:20 B-Natriuretic Peptide 140 pg/mL (Less than 100) H 03/20/18 01:37 - Diagnostic Findings Chest x-ray: report reviewed - Clinical Findings Intake & Output: Intake & Output 03/20/18 03/20/18 03/20/18 07:59 15:59 23:59 Intake Total 1150 / 1150 Output Total 100 / 100 Balance 1050 / 1050 Consult Discharge Plan - Plan Referrals: NONE,PCP [Primary Care Provider] - <Zacarias Londono S - Last Filed: 03/21/18 10:59> Date of Encounter: 03/21/18 All Systems: The remainder of the systems were reviewed and are negative Physical Examination Vital Signs: Vital Signs, Last 4 Hours Temp Pulse Resp BP Pulse Ox 03/21/18 09:00 75 124/73 03/21/18 08:00 73 16 124/73 99 03/21/18 07:46 97.6 F 03/21/18 07:29 16 99 03/21/18 07:00 55 16 118/58 100 03/21/18 06:00 59 20 106/56 97 Ventilator Settings Ventilator Settings: Ventilator Settings, Last 8 Hours Ventilator Tidal Volume 600 Setting Ventilator Respiratory Rate 16 Setting Results - Laboratory Findings CBC and BMP: 03/21/18 04:25 03/21/18 04:25 ABG ABG pH 7.31 pH Units (7.32-7.45) L 03/21/18 05:30 ABG pCO2 96 mmHg (35-45) H* 03/21/18 05:30 ABG pO2 78 mmHg (85-104) L 03/21/18 05:30 ABG O2 Saturation 93 % (95-98) L 03/21/18 05:30 PT/INR, D-dimer PT 11.5 Seconds (9.4-12.1) 03/20/18 01:37 Abnormal lab findings: Abnormal lab results WBC 2.8 K/mcL (4.3-11.1) L 03/21/18 04:25 RBC 3.80 M/mcL (4.19-5.50) L 03/21/18 04:25 Hgb 10.8 g/dL (12.9-16.9) L 03/21/18 04:25 Hct 36.5 % (37.5-50.1) L 03/21/18 04:25 MCHC 29.6 g/dL (31.6-35.5) L 03/21/18 04:25 Plt Count 133 K/mcL (140-400) L 03/21/18 04:25 Lymphocytes # 0.5 K/mcL (0.6-4.6) L 03/21/18 04:25 APTT 39.6 Seconds (26.0-36.0) H 03/20/18 01:37 ABG pH 7.31 pH Units (7.32-7.45) L 03/21/18 05:30 ABG pCO2 96 mmHg (35-45) H* 03/21/18 05:30 ABG pO2 78 mmHg (85-104) L 03/21/18 05:30 ABG HCO3 49 mEq/L (21-27) H 03/21/18 05:30 ABG Total CO2 52 mEq/L (20-26) H 03/21/18 05:30 ABG O2 Saturation 93 % (95-98) L 03/21/18 05:30 ABG Base Excess 18 mEq/L (-2 to 3) H 03/21/18 05:30 Chloride 92 mEq/L (98-107) L 03/21/18 04:25 Carbon Dioxide 45 mEq/L (23-29) H* 03/21/18 04:25 Glucose 154 mg/dL (70-105) H 03/21/18 04:25 POC Glucose 142 mg/dL (70-99) H 03/20/18 23:51 B-Natriuretic Peptide 140 pg/mL (Less than 100) H 03/20/18 01:37 - Clinical Findings Intake & Output: Intake & Output 03/20/18 03/21/18 03/21/18 23:59 07:59 15:59 Intake Total 75 / 75 Output Total 300 / 300 650 / 650 Balance -225 / -225 -650 / -650 Weight 154.01 kg - Attending Attestation I saw and evaluated this patient and my medical decision-making was reviewed with the Resident Physician. I agree with the documented findings, disposition and treatment plan as described except to the extent set forth below. We independently had [id number] contact with the patient Patient seen and examined at bedside Labs, radiology, chart personally reviewed. Management was reviewed during multidisciplinary critical care rounds. RESTAURANT BUSSER: Patient is conscious oriented times 3 following commands Pulm: Patient V/Q mismatch is probably due to COPD exacerbation complicated by diastolic heart failure to continue with current management of COPD with dialysis continue the broad-spectrum antibiotics and de-escalate accordingly. Cards: Patient hemodynamically stable with diastolic heart failure to do gentle diuresis as tolerated. FEN-GI: Advance diet as tolerated mechanical soft diet today afternoon. Renal: Labs and output reviewed ID: Will do a nasal MRSA swab that is negative will de-escalate vancomycin to keep Zosyn and will de-escalate to probably by mouth doxycycline once he is stable. Heme/Onc: Labs reviewed. Endo: Glucose Monitored Integ/MSK: Skin Care per routine ICU Nursing Protocol to prevent ulcers. Lines: All lines examined without evidence of infection : Dispo: To be in the ICU tonight probably will transfer him out tomorrow. CODE: Full Code
[2018-03-20 18:49] LABS: ABG Base Excess 17 mEq/L (-2 to 3); ABG HCO3 51 mEq/L (21-27); ABG Oxygen Saturation 91 % (95-98); ABG PCO2 120 mmHg (35-45); ABG PH 7.24 pH Units (7.32-7.45); ABG PO2 79 mmHg (85-104); ABG TCO2 54 mEq/L (20-26); Blood Gas Modality AVAP; Blood Gas PEEP 6 cm H2O; Blood Gas VT 600 cc
[2018-03-20 22:43] LABS: ABG Base Excess 17 mEq/L (-2 to 3); ABG HCO3 48 mEq/L (21-27); ABG Oxygen Saturation 91 % (95-98); ABG PCO2 94 mmHg (35-45); ABG PH 7.32 pH Units (7.32-7.45); ABG PO2 72 mmHg (85-104); ABG TCO2 51 mEq/L (20-26); Blood Gas Respiration Rate 14; Blood Gas VT 600 cc
[2018-03-21] MEDS: Ipratropium/Albuterol Neb 3 ML IH SCH ×6 (03:15→23:08)
[2018-03-21 04:58] LABS: Hematocrit 36.5 % (37.5-50.1); Immature Granulocytes % 0.4 % (0-4); Lymphocytes # 0.5 K/mcL (0.6-4.6); Mean Corpuscular HGB Conc 29.6 g/dL (31.6-35.5); Mean Corpuscular Hemoglobin 28.4 pg (28.0-33.3); Mean Platelet Volume 10.9 fL (9.4-12.4); Monocytes # 0.1 K/mcL (0.0-1.3); Monocytes % 1.8 %; Platelet Count 133 K/mcL (140-400); Red Cell Distribution Width 13.1 % (11.5-14.5); Segmented Neutrophils % 80.8 %
[2018-03-21 05:12] LABS: Hemoglobin 10.8 g/dL (12.9-16.9); Mean Corpuscular Volume 96.1 fL (83.0-100.0); Neutrophils # 2.3 K/mcL (1.6-8.9)
[2018-03-21 05:19] LABS: BUN/Creatinine Ratio 17 (6-26); Blood Urea Nitrogen 20 mg/dL (8-23); Carbon Dioxide 45 mEq/L (23-29); Chloride 92 mEq/L (98-107); Glucose 154 mg/dL (70-105); Osmolality,Calculated 296 (280-300); Potassium 4.1 mEq/L (3.5-5.1); Sodium 140 mEq/L (136-145); eGFR For Non-African Americans > 60 (> 60)
[2018-03-21 05:38] LABS: ABG Base Excess 18 mEq/L (-2 to 3); ABG HCO3 49 mEq/L (21-27); ABG Oxygen Saturation 93 % (95-98); ABG PCO2 96 mmHg (35-45); ABG PH 7.31 pH Units (7.32-7.45); ABG PO2 78 mmHg (85-104); ABG TCO2 52 mEq/L (20-26); Blood Gas PEEP 6 cm H2O; Blood Gas Respiration Rate 16; Blood Gas VT 600 cc
[2018-03-21] MEDS: *HR* Heparin 5,000 UNIT/ML VIAL SQ SCH ×3 (05:46→21:09)
[2018-03-21] MEDS ORDERED: Aminoglycoside Consult 1 EACH MC ONE (07:34)
[2018-03-21] MEDS ORDERED: Piperacillin/Tazobactam 3.375 GM in 0.9 % Sodium Chloride Mini Bag 100 ML IVPB SCH (08:00)
[2018-03-21] MEDS: Gabapentin 400 MG CAPSULE PO SCH ×3 (08:44→21:10)
[2018-03-21] MEDS: Folic Acid 1 MG TABLET PO SCH (08:44)
[2018-03-21] MEDS: Famotidine 20 MG TABLET PO SCH ×2 (08:45→21:10)
[2018-03-21] MEDS: methylPREDNISolone 125 MG/2 ML VIAL IVP SCH ×3 (08:45→23:55)
[2018-03-21] MEDS: Thiamine (B-1) 100 MG TABLET PO SCH (08:45)
[2018-03-21] MEDS: Vitamin B Complex/Vit C/Vit E 1 EACH TABLET PO SCH (08:45)
[2018-03-21] MEDS: Fluticasone Propionate Nasal 50 MCG/SPRAY BOTTLE NS SCH (08:46)
[2018-03-21] MEDS ORDERED: Furosemide 40 MG/4 ML VIAL IVP ONE (09:48)
--- NOTE | 2018-03-21 10:03 | Pulmonology Progress Note ---
Date of Encounter: 03/21/18 Time of Encounter: 08:30 Assessment and Plan (1) Acute respiratory failure with hypoxia and hypercapnia Current Visit: Yes Status: Acute Likely 2/2 COPD exacerbation and obesity hypoventilation syndrome Patient on 6L high flow NC, saturating at 97% Received a dose of steroids in ED On methylprednisolone 60 mg IV Q8hr Started on vancomycin and zosyn Repeat ABG shows pH 7.31, pCO2 96, HCO3 49 Continue BIPAP at night Continue symbicort, fluticasone, duonebs Put in order to transfer patient out of ICU to floor (2) Altered mental status Current Visit: Yes Status: Resolved Resolved Patient was altered yesterday Qualifiers: Altered mental status type: delirium Qualified Code(s): R41.0 - Disorientation, unspecified (3) CHF (congestive heart failure) Current Visit: No Status: Acute Patient given IV lasix Patient has some rales in lung bilaterally and mild edema in LE bilaterally Last echo (01/05) shows "grossly normal LV systolic function" Will continue to monitor I&Os Qualifiers: Heart failure type: systolic Heart failure chronicity: acute on chronic Qualified Code(s): I50.23 - Acute on chronic systolic (congestive) heart failure (4) Obstructive sleep apnea Current Visit: No Status: Suspected Likely due to obesity Patient currently on high flow 6L nasal cannula, saturating at 98% Head of bed is elevated (5) Diarrhea Current Visit: Yes Status: Acute Recent use of levofloxacin for PNA Patient afebrile, normal WBCs C. diff ordered Qualifiers: Diarrhea type: presumed infectious Qualified Code(s): R19.7 - Diarrhea, unspecified (6) Sacral decubitus ulcer, stage II Current Visit: Yes Status: Acute Q2 bed turns Continue to monitor (7) DVT prophylaxis Current Visit: No Status: Acute Subcutaneous heparin Subjective Principal diagnosis: Acute on chronic respiratory failure Interval history: Patient seen and examined this morning. He is doing very well with no complaints. Patient is alert and oriented x3 this morning. He denies SOB or chest pain. He is resting well on BIPAP. No acute events overnight. Objective PUL Vital signs: Last Vital Signs Temp 97.6 F 03/21/18 07:46 Pulse 75 03/21/18 09:00 Resp 16 03/21/18 08:00 BP 124/73 03/21/18 09:00 Pulse Ox 99 03/21/18 08:00 General appearance: no acute distress Eyes: nonicteric Effort: normal Auscultation: bilateral: wheezes, rales Cardiovascular: regular rate and rhythm Gastrointestinal: soft, non-tender Integumentary: decubitus ulcer (sacral) Extremities: pulses normal, edema (mild edema in lower 1/3 of LE bilaterally) Musculoskeletal: no deformities normal mental status mood appropriate, affect normal Ventilator Settings Ventilator Settings: Ventilator Settings, Last 8 Hours Ventilator Tidal Volume 600 Setting Ventilator Respiratory Rate 16 Setting Results - Laboratory Findings CBC and BMP: 03/21/18 04:25 03/21/18 04:25 ABG ABG pH 7.31 pH Units (7.32-7.45) L 03/21/18 05:30 ABG pCO2 96 mmHg (35-45) H* 03/21/18 05:30 ABG pO2 78 mmHg (85-104) L 03/21/18 05:30 ABG O2 Saturation 93 % (95-98) L 03/21/18 05:30 PT/INR, D-dimer PT 11.5 Seconds (9.4-12.1) 03/20/18 01:37 Abnormal lab findings: Abnormal lab results WBC 2.8 K/mcL (4.3-11.1) L 03/21/18 04:25 RBC 3.80 M/mcL (4.19-5.50) L 03/21/18 04:25 Hgb 10.8 g/dL (12.9-16.9) L 03/21/18 04:25 Hct 36.5 % (37.5-50.1) L 03/21/18 04:25 MCHC 29.6 g/dL (31.6-35.5) L 03/21/18 04:25 Plt Count 133 K/mcL (140-400) L 03/21/18 04:25 Lymphocytes # 0.5 K/mcL (0.6-4.6) L 03/21/18 04:25 APTT 39.6 Seconds (26.0-36.0) H 03/20/18 01:37 ABG pH 7.31 pH Units (7.32-7.45) L 03/21/18 05:30 ABG pCO2 96 mmHg (35-45) H* 03/21/18 05:30 ABG pO2 78 mmHg (85-104) L 03/21/18 05:30 ABG HCO3 49 mEq/L (21-27) H 03/21/18 05:30 ABG Total CO2 52 mEq/L (20-26) H 03/21/18 05:30 ABG O2 Saturation 93 % (95-98) L 03/21/18 05:30 ABG Base Excess 18 mEq/L (-2 to 3) H 03/21/18 05:30 Chloride 92 mEq/L (98-107) L 03/21/18 04:25 Carbon Dioxide 45 mEq/L (23-29) H* 03/21/18 04:25 Glucose 154 mg/dL (70-105) H 03/21/18 04:25 POC Glucose 142 mg/dL (70-99) H 03/20/18 23:51 B-Natriuretic Peptide 140 pg/mL (Less than 100) H 03/20/18 01:37 - Clinical Findings Intake & Output: Intake & Output 03/20/18 03/21/18 03/21/18 23:59 07:59 15:59 Intake Total 75 / 75 Output Total 300 / 300 650 / 650 Balance -225 / -225 -650 / -650 Weight 154.01 kg Consult Discharge Plan - Plan Referrals: NONE,PCP [Primary Care Provider] -
[2018-03-21] MEDS ORDERED: *HR* Dextrose 50 % in Water (Syg) 50 ML SYRINGE IVP PRN ×2 (11:08→13:14)
[2018-03-21] MEDS ORDERED: D5% in Water 1,000 ML IVC PRN ×2 (11:08→13:14)
[2018-03-21] MEDS ORDERED: Dextrose Gel 15 GM/37.5 ML TUBE PO PRN ×4 (11:08→13:14)
[2018-03-21] MEDS ORDERED: Gabapentin 400 MG CAPSULE PO SCH ×2 (11:15→15:00)
[2018-03-21] MEDS: Budesonide/Formoterol 160/4.5 1 PUFF INH IH SCH ×2 (11:22→19:33)
[2018-03-21] MEDS ORDERED: Insulin LISPRO 300 UNITS/3 ML VIAL SQ SCH (11:30)
[2018-03-21] MEDS ORDERED: Ondansetron ODT 4 MG TAB.RAPDIS SL PRN (13:14)
[2018-03-21] MEDS ORDERED: Isovue-370 500 ML INFUS..BTL IV ONE (13:14)
[2018-03-21] MEDS: Piperacillin/Tazobactam 3.375 GM in 0.9 % Sodium Chloride Mini Bag 100 ML IVPB SCH ×2 (15:20→23:56)
--- NOTE | 2018-03-21 15:36 | Electrocardiograph Report ---
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
[2018-03-21] MEDS: Insulin LISPRO 300 UNITS/3 ML VIAL SQ SCH (18:16)
[2018-03-21] MEDS: *HR* HYDROcodone/Acet 7.5/325 mg TABLET PO PRN (21:11)
[2018-03-22] MEDS: Ipratropium/Albuterol Neb 3 ML IH SCH ×6 (03:47→23:26)
[2018-03-22] MEDS: *HR* Heparin 5,000 UNIT/ML VIAL SQ SCH ×3 (05:41→20:56)
[2018-03-22] MEDS: Budesonide/Formoterol 160/4.5 1 PUFF INH IH SCH ×2 (08:23→20:04)
--- NOTE | 2018-03-22 08:49 | Internal Med Progress Note ---
Hospitalist Progress Note - Encounter Date of Encounter: 03/22/18 Time of Encounter: 08:46 - Subjective Interval History: Patient with history of morbid obesity, hypertension, high cholesterol, COPD and congestive heart failure also history of obstructive sleep apnea patient admitted admitted with shortness of breath and hypoxemia and diarrhea diagnosed with acute respiratory failure patient seen and being followed by groundsman Today patient reported that he feels much better . Diarrhea is better but not resolved nurse report patient has bradycardia mostly at night heart rate is now back to 61 no hemodynamic compromise - Exam Vitals: Temp Pulse Resp BP Pulse Ox 97.1 F L 49 22 130/67 100 03/22/18 07:30 03/22/18 07:30 03/22/18 08:25 03/22/18 07:30 03/22/18 08:25 Exam: Vitals: Reviewed General: Ssverely obese man, sitting OOB to chair. No signs of respiratory distress evident. Unkempt and soiled in stool. Skin: Warm and supple. HEENT: Moist mucous membranes. No conjunctivae pallor. Neck: No lymphadenopathy. No JVD. No carotid bruits. No palpable thyroid. Chest: Minimal expiratory wheezes in both lung barboza. Heart: Normal S1 & S2; rhythmic. Abdomen: soft and non-tender to palpation. Extremities: No clubbing, cyanosis. Neurological: Awake, alert and oriented to person, place and time. No focal deficits. Psych: Affect appropriate. - Assessment and Plan (1) Diarrhea Current Visit: Yes Status: Acute Assessment and Plan: C. difficile was ordered but was not obtained has now been ordered mile Diarrhea. Patient is better (2) Morbid obesity with BMI of 50.0-59.9, adult Current Visit: No Status: Chronic (3) Acute and chronic respiratory failure with hypoxia Current Visit: No Status: Acute Assessment and Plan: Acute on chronic respiratory failure with hypercapnia and hypoxemia patient is on BiPAP clinically better is being followed by groundsman as well We will continue on Solu Medrol antibiotic and breathing treatment (4) CHF (congestive heart failure) Current Visit: No Status: Acute Assessment and Plan: Mild diastolic heart failure last echo shows preserved LV function (5) NICKI (acute kidney injury) Current Visit: Yes Status: Acute Assessment and Plan: Resolved (6) Sacral decubitus ulcer, stage II Current Visit: Yes Status: Acute - Time Spent with Patient Total time spent is greater than 50% in coordination of care (as documented) at patient's floor/unit and/or counseling patient: Internal Medicine: Result - Labs CBC & Chem 7: 03/21/18 04:25 03/21/18 04:25 - ABG Interpretation ABG results: ABG ABG pH 7.31 pH Units (7.32-7.45) L 03/21/18 05:30 ABG pCO2 96 mmHg (35-45) H* 03/21/18 05:30 ABG pO2 78 mmHg (85-104) L 03/21/18 05:30 ABG O2 Saturation 93 % (95-98) L 03/21/18 05:30 PT/INR, D-dimer PT 11.5 Seconds (9.4-12.1) 03/20/18 01:37 Consult Discharge Plan - Plan Referrals: NONE,PCP [Primary Care Provider] - (1) Diarrhea Qualifiers: Diarrhea type: presumed infectious Qualified Code(s): R19.7 - Diarrhea, unspecified (4) CHF (congestive heart failure) Qualifiers: Heart failure type: diastolic Heart failure chronicity: acute on chronic Qualified Code(s): I50.33 - Acute on chronic diastolic (congestive) heart failure
[2018-03-22] MEDS: Fluticasone Propionate Nasal 50 MCG/SPRAY BOTTLE NS SCH (08:56)
[2018-03-22] MEDS: Insulin LISPRO 300 UNITS/3 ML VIAL SQ SCH ×2 (08:58→12:29)
[2018-03-22] MEDS: Piperacillin/Tazobactam 3.375 GM in 0.9 % Sodium Chloride Mini Bag 100 ML IVPB SCH ×2 (09:00→16:54)
[2018-03-22] MEDS ORDERED: Furosemide 20 MG/2 ML VIAL IVP SCH ×2 (09:00)
[2018-03-22] MEDS: methylPREDNISolone 125 MG/2 ML VIAL IVP SCH ×2 (09:00→16:53)
[2018-03-22] MEDS: Vitamin B Complex/Vit C/Vit E 1 EACH TABLET PO SCH (09:01)
[2018-03-22] MEDS: Thiamine (B-1) 100 MG TABLET PO SCH (09:01)
[2018-03-22] MEDS: Gabapentin 400 MG CAPSULE PO SCH ×3 (09:01→20:55)
[2018-03-22] MEDS: Famotidine 20 MG TABLET PO SCH ×2 (09:01→20:56)
[2018-03-22] MEDS: Folic Acid 1 MG TABLET PO SCH (09:02)
[2018-03-22] MEDS: *HR* HYDROcodone/Acet 7.5/325 mg TABLET PO PRN ×2 (09:19→17:16)
[2018-03-22 12:55] LABS: Estimated Average Glucose 94 mg/dl; Hemoglobin A1C 4.9 %
[2018-03-23] MEDS: Piperacillin/Tazobactam 3.375 GM in 0.9 % Sodium Chloride Mini Bag 100 ML IVPB SCH ×2 (00:48→09:05)
[2018-03-23] MEDS: methylPREDNISolone 125 MG/2 ML VIAL IVP SCH (00:49)
[2018-03-23] MEDS: Ipratropium/Albuterol Neb 3 ML IH SCH ×6 (03:43→23:40)
[2018-03-23 04:27] LABS: BUN/Creatinine Ratio 20 (6-26); Blood Urea Nitrogen 26 mg/dL (8-23); Calcium 9.1 mg/dL (8.6-10.3); Carbon Dioxide 44 mEq/L (23-29); Chloride 92 mEq/L (98-107); Glucose 167 mg/dL (70-105); Osmolality,Calculated 297 (280-300); Potassium 3.6 mEq/L (3.5-5.1); Sodium 139 mEq/L (136-145); eGFR For Non-African Americans 55 (> 60)
[2018-03-23] MEDS: *HR* Heparin 5,000 UNIT/ML VIAL SQ SCH ×3 (06:39→22:36)
[2018-03-23] MEDS: *HR* HYDROcodone/Acet 7.5/325 mg TABLET PO PRN ×2 (06:41→16:01)
[2018-03-23] MEDS: Budesonide/Formoterol 160/4.5 1 PUFF INH IH SCH ×2 (07:37→20:18)
--- NOTE | 2018-03-23 08:18 | Internal Med Progress Note ---
Hospitalist Progress Note - Encounter Date of Encounter: 03/23/18 Time of Encounter: 08:20 - Subjective Interval History: Patient with history of morbid obesity, hypertension, high cholesterol, COPD and congestive heart failure also history of obstructive sleep apnea patient admitted admitted with shortness of breath and hypoxemia and diarrhea diagnosed with acute respiratory failure patient seen and being followed by apartment coordinator Today patient reported that he feels much better . Diarrhea is better but not resolved nurse report patient has bradycardia mostly at night heart rate is now back to 61 no hemodynamic compromise 03/23 patient seen and examined said he feels much better is on 4 L of nasal cannula oxygen saturations 100% with decrease down to 2 L is exam is unremarkable most very well now mild wheezing also decreases says steroid from 60 mg to 40 mg can probably change to by mouth prednisone tomorrow - Exam Vitals: Temp Pulse Resp BP Pulse Ox 98.2 F 68 18 128/76 97 03/23/18 06:49 03/23/18 06:49 03/23/18 06:49 03/23/18 06:49 03/23/18 06:49 Exam: Vitals: Reviewed General: Ssverely obese man, sitting OOB to chair. No signs of respiratory distress evident. Unkempt and soiled in stool. Skin: Warm and supple. HEENT: Moist mucous membranes. No conjunctivae pallor. Neck: No lymphadenopathy. No JVD. No carotid bruits. No palpable thyroid. Chest: Minimal expiratory wheezes in both lung barboza. Heart: Normal S1 & S2; rhythmic. Abdomen: soft and non-tender to palpation. Extremities: No clubbing, cyanosis. Neurological: Awake, alert and oriented to person, place and time. No focal deficits. Psych: Affect appropriate. - Assessment and Plan (1) Diarrhea Current Visit: Yes Status: Acute Assessment and Plan: Clinically resolving (2) Morbid obesity with BMI of 50.0-59.9, adult Current Visit: No Status: Chronic (3) Acute and chronic respiratory failure with hypoxia Current Visit: No Status: Acute Assessment and Plan: Patient clinically much better is some when necessary BiPAP I would decrease his oxygen to 2 L from 4 L at present also decrease his Solu- Medrol from 60 mg to 40 mg probably can be changed to by mouth prednisone tomorrow and taper (4) CHF (congestive heart failure) Current Visit: No Status: Acute Assessment and Plan: Clinically resolving exam is unremarkable (5) NICKI (acute kidney injury) Current Visit: Yes Status: Acute Assessment and Plan: Creatinine mildly increased recheck in a.m. (6) Sacral decubitus ulcer, stage II Current Visit: Yes Status: Acute - Time Spent with Patient Total time spent is greater than 50% in coordination of care (as documented) at patient's floor/unit and/or counseling patient: Internal Medicine: Result - Labs CBC & Chem 7: 03/21/18 04:25 03/23/18 03:38 Labs: BMP 03/23/18 03:38 Sodium 139 Potassium 3.6 Chloride 92 L Carbon Dioxide 44 H* BUN 26 H Creatinine 1.32 H Glucose 167 H Calcium 9.1 - ABG Interpretation ABG results: ABG ABG pH 7.31 pH Units (7.32-7.45) L 03/21/18 05:30 ABG pCO2 96 mmHg (35-45) H* 03/21/18 05:30 ABG pO2 78 mmHg (85-104) L 03/21/18 05:30 ABG O2 Saturation 93 % (95-98) L 03/21/18 05:30 PT/INR, D-dimer PT 11.5 Seconds (9.4-12.1) 03/20/18 01:37 Consult Discharge Plan - Plan Referrals: NONE,PCP [Primary Care Provider] - (1) Diarrhea Qualifiers: Diarrhea type: presumed infectious Qualified Code(s): R19.7 - Diarrhea, unspecified (4) CHF (congestive heart failure) Qualifiers: Heart failure type: diastolic Heart failure chronicity: acute on chronic Qualified Code(s): I50.33 - Acute on chronic diastolic (congestive) heart failure
[2018-03-23] MEDS: Fluticasone Propionate Nasal 50 MCG/SPRAY BOTTLE NS SCH (09:06)
[2018-03-23] MEDS: Gabapentin 400 MG CAPSULE PO SCH ×3 (09:06→22:36)
[2018-03-23] MEDS: Vitamin B Complex/Vit C/Vit E 1 EACH TABLET PO SCH (09:07)
[2018-03-23] MEDS: Folic Acid 1 MG TABLET PO SCH (09:07)
[2018-03-23] MEDS: Famotidine 20 MG TABLET PO SCH ×2 (09:07→22:36)
[2018-03-23] MEDS: Thiamine (B-1) 100 MG TABLET PO SCH (09:07)
[2018-03-23] MEDS: Levofloxacin 750 MG/150 ML 750 MG/150 ML BAG IVPB SCH (16:02)
[2018-03-23] MEDS: MethylPREDNISolone 40 MG/ML VIAL IVP SCH (16:03)
[2018-03-24] MEDS: MethylPREDNISolone 40 MG/ML VIAL IVP SCH ×4 (01:08→23:29)
[2018-03-24] MEDS: Ipratropium/Albuterol Neb 3 ML IH SCH ×6 (03:31→23:29)
[2018-03-24] MEDS: *HR* HYDROcodone/Acet 7.5/325 mg TABLET PO PRN ×3 (03:40→23:29)
[2018-03-24] MEDS: *HR* Heparin 5,000 UNIT/ML VIAL SQ SCH ×3 (05:45→20:29)
[2018-03-24] MEDS: Budesonide/Formoterol 160/4.5 1 PUFF INH IH SCH ×2 (07:37→19:42)
--- NOTE | 2018-03-24 08:08 | Internal Med Progress Note ---
Hospitalist Progress Note - Encounter Date of Encounter: 03/24/18 Time of Encounter: 08:00 - Exam Vitals: Temp Pulse Resp BP Pulse Ox 97.5 F L 55 18 149/73 100 03/24/18 07:49 03/24/18 07:49 03/24/18 07:49 03/24/18 07:49 03/24/18 03:32 Exam: Vitals: Reviewed General: Ssverely obese man, sitting OOB to chair. No signs of respiratory distress evident. Unkempt and soiled in stool. Skin: Warm and supple. HEENT: Moist mucous membranes. No conjunctivae pallor. Neck: No lymphadenopathy. No JVD. No carotid bruits. No palpable thyroid. Chest: Minimal expiratory wheezes in both lung barboza. Heart: Normal S1 & S2; rhythmic. Abdomen: soft and non-tender to palpation. Extremities: No clubbing, cyanosis. Neurological: Awake, alert and oriented to person, place and time. No focal deficits. Psych: Affect appropriate. - Assessment and Plan (1) Acute respiratory failure with hypoxia and hypercapnia Current Visit: Yes Status: Acute Assessment and Plan: Came in with acute hypoxic and hypercapneic repsiratory failure likely secondary to COPD exacerbation and obesity hypoventilation syndrome Improving but still hypoxic this am. Continue nebs, steroids and anitbiotics and BIPAP as needed Wean off IV steroids as tolerated (2) COPD exacerbation Current Visit: Yes Status: Acute Assessment and Plan: Continue nebs, steroids and antibiotics (3) Obesity hypoventilation syndrome Current Visit: Yes Status: Acute Assessment and Plan: Continue on BIPAP and duonebs (4) Morbid obesity with BMI of 40.0-44.9, adult Current Visit: Yes Status: Chronic Assessment and Plan: Low fat diet ordered. Nutrionist support needed. Bariatric surgery eval will be helpful. (5) NICKI (acute kidney injury) Current Visit: Yes Status: Acute Assessment and Plan: Hold diuretics (6) Essential hypertension Current Visit: Yes Status: Chronic Assessment and Plan: Will controlled. Home meds can be resumed. (7) DVT prophylaxis Current Visit: Yes Status: Acute Assessment and Plan: SubQ heparin indicated - Time Spent with Patient Total time spent is greater than 50% in coordination of care (as documented) at patient's floor/unit and/or counseling patient: Internal Medicine: Result - Labs CBC & Chem 7: 03/24/18 08:25 03/24/18 08:25 - ABG Interpretation ABG results: ABG ABG pH 7.31 pH Units (7.32-7.45) L 03/21/18 05:30 ABG pCO2 96 mmHg (35-45) H* 03/21/18 05:30 ABG pO2 78 mmHg (85-104) L 03/21/18 05:30 ABG O2 Saturation 93 % (95-98) L 03/21/18 05:30 PT/INR, D-dimer PT 11.5 Seconds (9.4-12.1) 03/20/18 01:37 Consult Discharge Plan - Plan Referrals: NONE,PCP [Primary Care Provider] -
[2018-03-24 08:45] LABS: Hematocrit 43.6 % (37.5-50.1); Hemoglobin 12.9 g/dL (12.9-16.9); Mean Corpuscular HGB Conc 29.6 g/dL (31.6-35.5); Mean Corpuscular Hemoglobin 28.2 pg (28.0-33.3); Mean Corpuscular Volume 95.4 fL (83.0-100.0); Mean Platelet Volume 10.2 fL (9.4-12.4); Platelet Count 129 K/mcL (140-400); Red Blood Count 4.57 M/mcL (4.19-5.50); Red Cell Distribution Width 13.5 % (11.5-14.5)
[2018-03-24 08:56] LABS: BUN/Creatinine Ratio 21 (6-26); Blood Urea Nitrogen 25 mg/dL (8-23); Calcium 9.2 mg/dL (8.6-10.3); Carbon Dioxide 38 mEq/L (23-29); Chloride 95 mEq/L (98-107); Glucose 153 mg/dL (70-105); Osmolality,Calculated 295 (280-300); Potassium 3.8 mEq/L (3.5-5.1); Sodium 139 mEq/L (136-145); eGFR For Non-African Americans > 60 (> 60)
[2018-03-24] MEDS: Thiamine (B-1) 100 MG TABLET PO SCH (09:23)
[2018-03-24] MEDS: Famotidine 20 MG TABLET PO SCH ×2 (09:24→20:29)
[2018-03-24] MEDS: Folic Acid 1 MG TABLET PO SCH (09:24)
[2018-03-24] MEDS: Vitamin B Complex/Vit C/Vit E 1 EACH TABLET PO SCH (09:24)
[2018-03-24] MEDS: Gabapentin 400 MG CAPSULE PO SCH ×3 (09:24→20:28)
[2018-03-24] MEDS: Fluticasone Propionate Nasal 50 MCG/SPRAY BOTTLE NS SCH (09:25)
[2018-03-24 10:15] LABS: Troponin I < 0.03 ng/mL (< 0.04)
[2018-03-24] MEDS: Levofloxacin 750 MG/150 ML 750 MG/150 ML BAG IVPB SCH (14:31)
[2018-03-24] MEDS: Methyl Salicylate/Menthol 28 GM TUBE TP PRN (21:27)
[2018-03-25] MEDS: Ipratropium/Albuterol Neb 3 ML IH SCH ×6 (04:16→23:21)
[2018-03-25] MEDS: *HR* Heparin 5,000 UNIT/ML VIAL SQ SCH ×3 (06:27→22:39)
[2018-03-25] MEDS: Budesonide/Formoterol 160/4.5 1 PUFF INH IH SCH ×2 (08:10→20:48)
[2018-03-25] MEDS: Gabapentin 400 MG CAPSULE PO SCH ×3 (09:32→22:39)
[2018-03-25] MEDS: MethylPREDNISolone 40 MG/ML VIAL IVP SCH ×2 (09:32→15:14)
[2018-03-25] MEDS: *HR* HYDROcodone/Acet 7.5/325 mg TABLET PO PRN ×2 (09:32→18:12)
[2018-03-25] MEDS: Vitamin B Complex/Vit C/Vit E 1 EACH TABLET PO SCH (09:33)
[2018-03-25] MEDS: Famotidine 20 MG TABLET PO SCH ×2 (09:33→22:39)
[2018-03-25] MEDS: Thiamine (B-1) 100 MG TABLET PO SCH (09:33)
[2018-03-25] MEDS: Folic Acid 1 MG TABLET PO SCH (09:33)
[2018-03-25] MEDS: Fluticasone Propionate Nasal 50 MCG/SPRAY BOTTLE NS SCH (09:34)
[2018-03-25] MEDS: Methyl Salicylate/Menthol 28 GM TUBE TP PRN ×2 (09:39→22:39)
[2018-03-25] MEDS: Levofloxacin 750 MG/150 ML 750 MG/150 ML BAG IVPB SCH (15:14)
--- NOTE | 2018-03-25 17:25 | Internal Med Progress Note ---
Hospitalist Progress Note - Encounter Date of Encounter: 03/26/18 Time of Encounter: 12:45 - Subjective Interval History: Patient continued to complain of shortness of breath and dry cough. Patient denies any chest pain fever or chills - Exam Vitals: Temp Pulse Resp BP Pulse Ox 97.8 F 74 16 128/70 98 03/25/18 15:28 03/25/18 15:28 03/25/18 15:28 03/25/18 15:28 03/25/18 16:15 Exam: Vitals: Reviewed Skin: Warm and supple. HEENT: Moist mucous membranes. No conjunctivae pallor. Neck: No lymphadenopathy. No JVD. No carotid bruits. No palpable thyroid. Chest: Decreased breathing sound bilateral bilateral basilar crackles. Heart: Normal S1 & S2; rhythmic. Abdomen: soft and non-tender to palpation. Extremities: No clubbing, cyanosis. Neurological: Awake, alert and oriented to person, place and time. No focal deficits. Psych: Affect appropriate. - Assessment and Plan (1) Morbid obesity with BMI of 40.0-44.9, adult Current Visit: Yes Status: Chronic (2) Acute respiratory failure with hypoxia and hypercapnia Current Visit: Yes Status: Acute (3) Essential hypertension Current Visit: Yes Status: Chronic (4) COPD exacerbation Current Visit: Yes Status: Acute (5) DVT prophylaxis Current Visit: Yes Status: Acute (6) Obesity hypoventilation syndrome Current Visit: Yes Status: Acute - Summary of Assessment and Plan Summary of Assessment and Plan: Counseling patient about deep breathing, would cut back on steroids, compression therapy lower extremities, based on physical therapy evaluation, patient need rehabilitation. Social service notified , signs of fluid overload restart diuretics, monitor renal function - Time Spent with Patient Total time spent is greater than 50% in coordination of care (as documented) at patient's floor/unit and/or counseling patient: 25 - 35 minutes Internal Medicine: Result - Labs CBC & Chem 7: 03/24/18 08:25 03/24/18 08:25 - ABG Interpretation ABG results: ABG ABG pH 7.31 pH Units (7.32-7.45) L 03/21/18 05:30 ABG pCO2 96 mmHg (35-45) H* 03/21/18 05:30 ABG pO2 78 mmHg (85-104) L 03/21/18 05:30 ABG O2 Saturation 93 % (95-98) L 03/21/18 05:30 PT/INR, D-dimer PT 11.5 Seconds (9.4-12.1) 03/20/18 01:37 Consult Discharge Plan - Plan Referrals: NONE,PCP [Primary Care Provider] -
[2018-03-26] MEDS: Ipratropium/Albuterol Neb 3 ML IH SCH ×6 (04:45→23:56)
[2018-03-26] MEDS: *HR* Heparin 5,000 UNIT/ML VIAL SQ SCH ×3 (04:45→21:22)
[2018-03-26] MEDS: *HR* HYDROcodone/Acet 7.5/325 mg TABLET PO PRN ×3 (04:46→21:22)
[2018-03-26] MEDS: Furosemide 20 MG TABLET PO SCH ×2 (06:18→16:51)
[2018-03-26] MEDS: Budesonide/Formoterol 160/4.5 1 PUFF INH IH SCH ×2 (08:07→20:42)
[2018-03-26] MEDS: Famotidine 20 MG TABLET PO SCH ×2 (08:09→21:22)
[2018-03-26] MEDS: Gabapentin 400 MG CAPSULE PO SCH ×3 (08:09→21:22)
[2018-03-26] MEDS: PrednisoLONE Oral Soln 15 MG/5 ML UDC PO SCH (08:09)
[2018-03-26] MEDS: Folic Acid 1 MG TABLET PO SCH (08:10)
[2018-03-26] MEDS: Fluticasone Propionate Nasal 50 MCG/SPRAY BOTTLE NS SCH (08:10)
[2018-03-26] MEDS: Thiamine (B-1) 100 MG TABLET PO SCH (08:10)
[2018-03-26] MEDS: Vitamin B Complex/Vit C/Vit E 1 EACH TABLET PO SCH (08:10)
[2018-03-26] MEDS ORDERED: Cyanocobalamin (B-12) 1,000 MCG/ML VIAL SQ ONE (13:15)
[2018-03-26] MEDS: Levofloxacin 750 MG/150 ML 750 MG/150 ML BAG IVPB SCH (14:55)
--- NOTE | 2018-03-26 19:10 | Internal Med Progress Note ---
Hospitalist Progress Note - Encounter Date of Encounter: 03/26/18 Time of Encounter: 16:40 - Subjective Interval History: Patient is stated his shortness of breath is better, he continued to have diarrhea had 2 loose stools daily, feel so weak with ambulation, he was wondering about ECF placement for rehabilitation, patient wanted to discuss with family - Exam Vitals: Temp Pulse Resp BP Pulse Ox 98.1 F 72 20 116/74 100 03/26/18 15:19 03/26/18 15:19 03/26/18 15:39 03/26/18 15:19 03/26/18 15:39 Exam: Vitals: Reviewed Skin: Warm and supple. HEENT: Moist mucous membranes. No conjunctivae pallor. Neck: No lymphadenopathy. No JVD. No carotid bruits. No palpable thyroid. Chest: Decreased breathing sound bilateral no crackles nor rhonchi marketed improvement of air entry compared to yesterday Heart: Normal S1 & S2; rhythmic. Abdomen: soft and non-tender to palpation. Extremities: No clubbing, cyanosis. Neurological: Awake, alert and oriented to person, place and time. No focal deficits. Psych: Affect appropriate. - Assessment and Plan (1) Morbid obesity with BMI of 40.0-44.9, adult Current Visit: Yes Status: Chronic (2) Acute respiratory failure with hypoxia and hypercapnia Current Visit: Yes Status: Acute (3) Essential hypertension Current Visit: Yes Status: Chronic (4) COPD exacerbation Current Visit: Yes Status: Acute (5) DVT prophylaxis Current Visit: Yes Status: Acute (6) Obesity hypoventilation syndrome Current Visit: Yes Status: Acute - Summary of Assessment and Plan Summary of Assessment and Plan: Continue aerosol treatment, counseling patient again about deep breathing, counseling patient about bedside exercise, patient wanted to discuss with family about home health .Possible discharge next 24 H based on patient and PT evaluation , social service evaluation - Time Spent with Patient Total time spent is greater than 50% in coordination of care (as documented) at patient's floor/unit and/or counseling patient: Greater than 35 minutes Internal Medicine: Result - Labs CBC & Chem 7: 03/24/18 08:25 03/24/18 08:25 - ABG Interpretation ABG results: ABG ABG pH 7.31 pH Units (7.32-7.45) L 03/21/18 05:30 ABG pCO2 96 mmHg (35-45) H* 03/21/18 05:30 ABG pO2 78 mmHg (85-104) L 03/21/18 05:30 ABG O2 Saturation 93 % (95-98) L 03/21/18 05:30 PT/INR, D-dimer PT 11.5 Seconds (9.4-12.1) 03/20/18 01:37 Consult Discharge Plan - Plan Referrals: NONE,PCP [Primary Care Provider] -
[2018-03-26] MEDS: methylPREDNISolone 125 MG/2 ML VIAL IVP SCH (19:35)
[2018-03-27] MEDS: Methyl Salicylate/Menthol 28 GM TUBE TP PRN (02:38)
[2018-03-27] MEDS: Ipratropium/Albuterol Neb 3 ML IH SCH ×4 (04:01→16:16)
[2018-03-27] MEDS: Furosemide 20 MG TABLET PO SCH (06:01)
[2018-03-27] MEDS: *HR* HYDROcodone/Acet 7.5/325 mg TABLET PO PRN ×2 (06:01→14:08)
[2018-03-27] MEDS: *HR* Heparin 5,000 UNIT/ML VIAL SQ SCH (06:01)
[2018-03-27] MEDS: Budesonide/Formoterol 160/4.5 1 PUFF INH IH SCH (07:56)
[2018-03-27] MEDS: Thiamine (B-1) 100 MG TABLET PO SCH (09:35)
[2018-03-27] MEDS: Folic Acid 1 MG TABLET PO SCH (09:35)
[2018-03-27] MEDS: Fluticasone Propionate Nasal 50 MCG/SPRAY BOTTLE NS SCH (09:35)
[2018-03-27] MEDS: Vitamin B Complex/Vit C/Vit E 1 EACH TABLET PO SCH (09:35)
[2018-03-27] MEDS: Famotidine 20 MG TABLET PO SCH (09:35)
[2018-03-27] MEDS: Gabapentin 400 MG CAPSULE PO SCH ×2 (09:35→14:08)
[2018-03-27] MEDS: PrednisoLONE Oral Soln 15 MG/5 ML UDC PO SCH (09:36)
--- NOTE | 2018-03-27 11:22 | Discharge Summary ---
- NOTES TO OUTPATIENT PROVIDER Notes to Outpatient Provider: Patient need to follow-up with pulmonary for outpatient, sleep study for evaluation for need for BiPAP. Daily weight report to wait to family doctor. Home physical therapy and occupational therapy. If patient not physical condition is not better may consider referra him again to ECF currently patient preferred to go home Orders not resulted at time of discharge: Pending orders 03/27/18 11:10 BMP [Basic Metabolic Panel] Routine Date of Encounter: 03/27/18 Time of Encounter: 11:15 - Discharge Diagnosis (1) Morbid obesity with BMI of 40.0-44.9, adult Priority: Secondary Status: Chronic (2) Acute respiratory failure with hypoxia and hypercapnia Priority: Primary Status: Acute (3) Essential hypertension Priority: Secondary Status: Chronic (4) COPD exacerbation Priority: Primary Status: Acute (5) DVT prophylaxis Priority: Secondary Status: Acute (6) Obesity hypoventilation syndrome Priority: Primary Status: Acute Hospital course: Mr. Dumas is a 62 year old male with past mental history of COPD, chronic respiratory failure on home oxygen 2 L, patient came to the emergency room with complain off severe shortness of breath and diarrhea , over last 2 days prior to admission his shortness of breath has been getting worse patient called EMS on arrival his oxygen saturation was 80% his oxygen saturation went up to 890% after 6 L nasal cannula, patient was recently treated as an outpatient for COPD exacerbation with levofloxacin, chest x-ray showed chronic bilateral airspace disease EKG showed sinus with ABG was consistent WITH hypercapnic hypoxic respiratory failure patient was placed on BiPAP and started on nebulizer treatment, overnight patient become so lethargic repeated ABG showed pH was 7.2 and PCO2 was 126 bicarbonate was 50 patient was transferred to ICU for worsening respiratory failure and further airway management, continue to monitor patient on BiPAP, patient was started on steroids and empiric antibiotic coverage. Once his condition stable patient was placed back on oxygen nasal cannula, patient was transferred to the floor with continue to monitor patient during hospitalization repeat ABG showed pH was 7.3 and PCO2 was 96 HCO3 was 49, last cardiac echo showed ejection fraction grossly normal on December 2017. Patient is currently on 1-2 L oxygen satting 98% counseling patient about keep oxygen saturation 91-92%. Counseling patient about the rehabilitation, patient stated that he has a very good social support and day he would prefer her home physical therapy, I discussed with patient to discuss was family about his decision, discussed with patient today again about his decision patient's very comfortable to go home, follow-up with pulmonary as an outpatient for evaluation of sleep study for home BiPAP. Discussed with the R in about the need appointment as soon as possible with pulmonary for sleep study further evaluation for BiPAP and mask at night, patient currently preferred to stay on oxygen . He has CPAP at home - Time Spent with Patient Total time spent providing and/or coordinating discharge services: Greater than 30 minutes - Discharge Medications Prescriptions: Cyanocobalamin (B-12) [Vitamin B12] 1,000 mcg PO DAILY #90 tablet Ergocalciferol (VITAMIN D2) [Drisdol (50,000 Unit)] 50,000 unit PO QWEEK #15 capsule Ipratropium/Albuterol Neb [Duoneb] 3 ml IH Q8H 90 Days #270 inhsol Levofloxacin [Levaquin] 500 mg PO DAILY #5 tablet predniSONE [PredniSONE] See Taper PO AD #11 tablet Home Medications: Atorvastatin [Lipitor] 40 mg PO HS 07/29/15 [History] Sertraline [Zoloft] 200 mg PO QAM 07/29/15 [History] Albuterol Sulfate [Albuterol Inhaler] 2 puff IH Q4HR PRN 10/25/15 [History] Fluticasone Propionate Nasal [Flonase] 2 spray NS DAILY 7 Days bottle 11/10/15 [Rx] Omeprazole [PriLOSEC] 40 mg PO DAILY 01/10/17 [History] Oxygen 1 each .ROUTE AD 01/10/17 [History] Folic Acid 1 mg PO DAILY tab 01/18/17 [Rx] Nitroglycerin [Nitrostat] 0.4 mg SL Q5M PRN 01/20/17 [History] Montelukast [Singulair] 10 mg PO DAILY 01/07/18 [History] Ranitidine HCl [Acid Food Crops Farm Hand] 150 mg PO BID 01/07/18 [History] Guaifenesin [Mucinex] 600 mg PO BID 01/14/18 [History] Ondansetron ODT [Zofran ODT] 4 mg SL Q6HR PRN 01/14/18 [History] Polyethylene Glycol 3350 [MiraLAX] 17 gm PO DAILY 01/14/18 [History] Furosemide [Lasix] 40 mg PO BID 02/16/18 [History] Potassium Chloride 20 meq PO BIDWM 02/16/18 [History] HYDROcodone/Acet 7.5/325 mg [Mchenry 7.5-325 mg] 1 tab PO Q8H PRN 02/17/18 [ History] Fluticasone Propionate [Flovent Hfa] 88 mcg IH BID 03/20/18 [History] Gabapentin [Neurontin] 800 mg PO TID 03/20/18 [History] Metoprolol Succinate [Toprol Xl] 100 mg PO DAILY 03/20/18 [History] Budesonide/Formoterol 160/4.5 [Symbicort 160/4.5] 2 puff IH BIDR inh 03/27/18 [ Rx] Cyanocobalamin (B-12) [Vitamin B12] 1,000 mcg PO DAILY #90 tablet 03/27/18 [Rx] Ergocalciferol (VITAMIN D2) [Drisdol (50,000 Unit)] 50,000 unit PO QWEEK #15 capsule 03/27/18 [Rx] Gabapentin [Neurontin] 800 mg PO TID capsule 03/27/18 [Rx] Ipratropium/Albuterol Neb [Duoneb] 3 ml IH Q8H 90 Days #270 inhsol 03/27/18 [Rx] Levofloxacin [Levaquin] 500 mg PO DAILY #5 tablet 03/27/18 [Rx] Thiamine (B-1) [Vitamin B-1] 100 mg PO DAILY tablet 03/27/18 [Rx] predniSONE [PredniSONE] See Taper PO AD #11 tablet 03/27/18 [Rx] Allergies/Adverse Reactions: 3 Allergy/AdvReac Type Severity Reaction Status Date / Time azithromycin [From Zithromax] Allergy Rash Verified 08/23/17 09:52 Date of admission: 03/20/18 09:45 Primary care physician: PCP NONE Consults: 03/20/18 15:27 Consult to Pulmonology [CONS] Routine Consulting Provider: Pulm Crit Care & Sleep [place] Reason for Consult: transfer to icu service for hypercapneic resp failure requiring intubation Call Completed: No 03/22/18 09:30 Consult to Physical Therapy [CONS] Routine Comment: Evaluate, develop and implement POC Reason for Consult: weakness Does patient have active BEDREST order?: No Is patient medically & hemodynamically stable?: Yes Patient assessed for mobility or mobilized this visit?: Yes 03/22/18 09:31 Consult to Occupational Therapy [CONS] Routine Comment: Evaluate, develop and implement POC Reason for Consult: weakness Does patient have active BEDREST order?: No Is patient medically & hemodynamically stable?: Yes Patient assessed for mobility or mobilized this visit?: No 03/24/18 09:10 dietary consult [Consult to Nutrition] [CONS] Routine Comment: Consulting Provider: NUTRITION Reason for Dietary Consult: PO Supplementation Discharging clinician: Braxton Eaton Anticipated date of discharge: 03/27/18 - Constitutional Vitals: Temp Pulse Resp BP Pulse Ox 98.4 F 66 16 112/67 99 03/27/18 04:29 03/27/18 04:29 03/27/18 04:29 03/27/18 04:29 03/27/18 04:29 General appearance: Present: A&O X 3 Exam: as above - Head Head exam: Present: atraumatic, normocephalic - Respiratory Respiratory exam: Present: decreased breath sounds, prolonged expiratory phase. Absent: accessory muscle use, rales, rhonchi, wheezes - Cardiovascular Cardiovascular exam: Present: RRR, +S1, +S2. Absent: diastolic murmur, gallop, rubs, systolic murmur - GI/Abdominal GI/Abdominal exam: Present: normal bowel sounds, soft, no peritoneal signs. Absent: distended, tenderness - Extremities Exam Extremities exam: Present: warm, radial pulses palpable and symmetrical. Absent : calf tenderness, cyanotic, pedal edema - Neurological Exam Neurological exam: Present: CN II-XII intact. Absent: motor sensory deficit - Patient Status Disposition: Home Health Service Condition: Fair Overall status at discharge: patient is progressing back to baseline - Discharge Instructions Instructions: Prednisone (By mouth), Levofloxacin (By mouth), Ipratropium/ Albuterol (By breathing), Vitamin B-12 (Cyanocobalamin) (By mouth), Vitamin D ( By mouth), COPD, Child Nutrition Director (GEN), COPD Exacerbation, Child Nutrition Director (GEN) Follow Up With: NONE,PCP [Primary Care Provider] - 04/06/18 Jan Bowens MD [Partnered Physician] - (Appointment requested ) - Diet and Activity Activity: ambulate only with your walker Diet: low fat, low cholesterol, low salt diet
[2018-03-27 11:35] VITALS: BP 111/69
--- NOTE | 2018-03-27 11:35 | Physician Discharge Referral ---
Home Health/Hosp Referral Info Transfer to: Home Health Provider in Charge Post Discharge: PCP - Diagnosis (1) Morbid obesity with BMI of 40.0-44.9, adult Priority: Secondary Status: Chronic (2) Acute respiratory failure with hypoxia and hypercapnia Priority: Primary Status: Acute (3) Essential hypertension Priority: Secondary Status: Chronic (4) COPD exacerbation Priority: Primary Status: Acute (5) DVT prophylaxis Priority: Secondary Status: Acute (6) Obesity hypoventilation syndrome Priority: Primary Status: Acute - Respiratory Orders Smoking Cessation: Smoking cessation has been advised. For more information, call the [place] Tobacco Quit Line at 3-995-XJRD-NOW. - Diet/Nutrition Diet/Nutrition Orders: Cardiac - Activity Activity Orders: Ambulate, Walker - Services Needed Following services are medically necessary services: Nursing, Physical Therapy, Occupational Therapy - Transfer Medications Prescriptions: Cyanocobalamin (B-12) [Vitamin B12] 1,000 mcg PO DAILY #90 tablet Ergocalciferol (VITAMIN D2) [Drisdol (50,000 Unit)] 50,000 unit PO QWEEK #15 capsule Ipratropium/Albuterol Neb [Duoneb] 3 ml IH Q8H 90 Days #270 inhsol Levofloxacin [Levaquin] 500 mg PO DAILY #5 tablet predniSONE [PredniSONE] See Taper PO AD #11 tablet Home Medications: Atorvastatin [Lipitor] 40 mg PO HS 07/29/15 [History] Sertraline [Zoloft] 200 mg PO QAM 07/29/15 [History] Albuterol Sulfate [Albuterol Inhaler] 2 puff IH Q4HR PRN 10/25/15 [History] Fluticasone Propionate Nasal [Flonase] 2 spray NS DAILY 7 Days bottle 11/10/15 [Rx] Omeprazole [PriLOSEC] 40 mg PO DAILY 01/10/17 [History] Oxygen 1 each .ROUTE AD 01/10/17 [History] Folic Acid 1 mg PO DAILY tab 01/18/17 [Rx] Nitroglycerin [Nitrostat] 0.4 mg SL Q5M PRN 01/20/17 [History] Montelukast [Singulair] 10 mg PO DAILY 01/07/18 [History] Ranitidine HCl [Acid Assisted Sales Representative] 150 mg PO BID 01/07/18 [History] Guaifenesin [Mucinex] 600 mg PO BID 01/14/18 [History] Ondansetron ODT [Zofran ODT] 4 mg SL Q6HR PRN 01/14/18 [History] Polyethylene Glycol 3350 [MiraLAX] 17 gm PO DAILY 01/14/18 [History] Furosemide [Lasix] 40 mg PO BID 02/16/18 [History] Potassium Chloride 20 meq PO BIDWM 02/16/18 [History] HYDROcodone/Acet 7.5/325 mg [Blunt 7.5-325 mg] 1 tab PO Q8H PRN 02/17/18 [ History] Fluticasone Propionate [Flovent Hfa] 88 mcg IH BID 03/20/18 [History] Gabapentin [Neurontin] 800 mg PO TID 03/20/18 [History] Metoprolol Succinate [Toprol Xl] 100 mg PO DAILY 03/20/18 [History] Budesonide/Formoterol 160/4.5 [Symbicort 160/4.5] 2 puff IH BIDR inh 03/27/18 [ Rx] Cyanocobalamin (B-12) [Vitamin B12] 1,000 mcg PO DAILY #90 tablet 03/27/18 [Rx] Ergocalciferol (VITAMIN D2) [Drisdol (50,000 Unit)] 50,000 unit PO QWEEK #15 capsule 03/27/18 [Rx] Gabapentin [Neurontin] 800 mg PO TID capsule 03/27/18 [Rx] Ipratropium/Albuterol Neb [Duoneb] 3 ml IH Q8H 90 Days #270 inhsol 03/27/18 [Rx] Levofloxacin [Levaquin] 500 mg PO DAILY #5 tablet 03/27/18 [Rx] Thiamine (B-1) [Vitamin B-1] 100 mg PO DAILY tablet 03/27/18 [Rx] predniSONE [PredniSONE] See Taper PO AD #11 tablet 03/27/18 [Rx] Allergies/Adverse Reactions: 3 Allergy/AdvReac Type Severity Reaction Status Date / Time azithromycin [From Zithromax] Allergy Rash Verified 08/23/17 09:52 Certification: Further, I certify that my clinical findings support that this patient is homebound (i.e. absences from home require considerable and taxing effort and are for medical reasons or baptism services or infrequently or short duration when for other reasons) because: Homebound Reason: Patient requires assistance of a person or device to safely leave home Attestation: My signature below is to certify that this patient is under my care and that I, or nurse practitioner, or a physician's stonecutter assistant working with me, has a face-to -face encounter with this patient.
[2018-03-27 12:12] LABS: BUN/Creatinine Ratio 21 (6-26); Blood Urea Nitrogen 30 mg/dL (8-23); Carbon Dioxide 30 mEq/L (23-29); Chloride 98 mEq/L (98-107); Glucose 132 mg/dL (70-105); Osmolality,Calculated 296 (280-300); Potassium 4.2 mEq/L (3.5-5.1); Sodium 139 mEq/L (136-145); eGFR For Non-African Americans 51 (> 60)
--- NOTE | 2018-03-28 15:45 | Electrocardiograph Report ---
[address] [place] [address] Test Date: 2018-03-24 Pat Name: Juancarlos Dumas Department: 115 Room: 3A23 Gender: M Railroad Hand: : 1955 Requested By: Jonathan Kuhn Order Number: [id number] Reading MD: Meng Quinteros Measurements Intervals [place] Rate: 70 P: 11 WA: 152 QRS: -1 QRSD: 110 T: 32 QT: 379 QTc: 399 Interpretive Statements SINUS RHYTHM POSSIBLE LEFT ATRIAL ENLARGEMENT Electronically Signed On 03-28-2018 15:43:31 EDT by Meng Quinteros
== END 2018-03-27 18:01 | disposition home health service (06) | DRG 140 ==
LOC: 3BNU 01:16 → EMEROOARM 01:16 → 3BNU 04:21 → 2NNU 12:36 → ICNU 15:53 → 3ANU 03-21 14:48
PROVIDERS: ADMIT Internal Medicine; ATTEND Internal Medicine

== ENCOUNTER 2018-04-06 15:47 | Inpatient (IN) ==
--- NOTE | 2018-04-06 16:05 | Emergency Department Note ---
Disposition Clinical Impression: Disorder of lung parenchyma, COPD exacerbation, Hypoxia Disposition: Admitted As Inpatient Condition: Fair Time of Disposition: 21:03 General Adult HPI - General Stated complaint: CP Time Seen by Provider: 04/06/18 15:53 Source: patient Mode of arrival: EMS Limitations: no limitations Nursing Notes Reviewed: Yes Vital Signs Reviewed: Yes - History of Present Illness HPI Narrative: 62 year old man with pmh significant for COPD, CHF, HTN, HLD, who presents to ED via EMS with complaints of chest pain and sob. He says chest pain began acutely 1-2 hours ago and described as sharp, stabbing pain in L inferior thorax mid clavicular that has been constant and worsening since it began today. He has radiation to L arm, neck and back. He says the pain is similar to prior angina episodes he had previously. Moving his L arm or any exertion increases his pain. Minimal change in chest pain with 1 sl nitro he received enroute. He additionally has had sob that's worse than baseline, non productive cough began today, on 2L home O2 normally at night but has been using it during the day recently. He denies diplopia, blurry vision, pleuritic chest pain, dizziness/lightheadedness, subjective fever/chills, N/V, diaphoresis, LE pain/ swelling, hx of DVT, IN, or syncope. He has had diarrhea for the past 2 weeks without improvement. He was recently admitted for diarrhea and SOB with that improved initially but returned again a few days after dc. Pt Subjective Complaint: chest pain/sob Onset (ago): hour(s) Location: chest Radiation: back, neck Pain Severity: similar to prior episodes Quality: sharp Consistency: Worsening Improves with: nothing Worsens with: movement Associated symptoms: Reports: chest pain, shortness of breath. Denies: cough, diaphoresis, fever/chills, headaches, nausea/vomiting, syncope Treatments Prior to Arrival: Aspirin, other (1 sl nitro via ems) - Related Data Home Medications Medication Instructions Recorded Confirmed Atorvastatin [Lipitor] 40 mg PO HS 07/29/15 03/20/18 Sertraline [Zoloft] 200 mg PO QAM 07/29/15 03/20/18 Albuterol Sulfate [Albuterol 2 puff IH Q4HR PRN 10/25/15 03/20/18 Inhaler] Omeprazole [PriLOSEC] 40 mg PO DAILY 01/10/17 03/20/18 Oxygen 1 each .ROUTE AD 01/10/17 03/20/18 Nitroglycerin [Nitrostat] 0.4 mg SL Q5M PRN 01/20/17 03/20/18 Montelukast [Singulair] 10 mg PO DAILY 01/07/18 03/20/18 Ranitidine HCl [Acid Smudger] 150 mg PO BID 01/07/18 03/20/18 Guaifenesin [Mucinex] 600 mg PO BID 01/14/18 03/20/18 Ondansetron ODT [Zofran ODT] 4 mg SL Q6HR PRN 01/14/18 03/20/18 Polyethylene Glycol 3350 [MiraLAX] 17 gm PO DAILY 01/14/18 03/20/18 Furosemide [Lasix] 40 mg PO BID 02/16/18 03/20/18 Potassium Chloride 20 meq PO BIDWM 02/16/18 03/20/18 HYDROcodone/Acet 7.5/325 mg [[place] 1 tab PO Q8H PRN 02/17/18 03/20/18 7.5-325 mg] Fluticasone Propionate [Flovent 88 mcg IH BID 03/20/18 03/20/18 Hfa] Gabapentin [Neurontin] 800 mg PO TID 03/20/18 03/20/18 Metoprolol Succinate [Toprol Xl] 100 mg PO DAILY 03/20/18 03/20/18 Previous Rx's Medication Instructions Recorded Fluticasone Propionate Nasal 2 spray NS DAILY 7 Days bottle 11/10/15 [Flonase] Folic Acid 1 mg PO DAILY tab 01/18/17 Budesonide/Formoterol 160/4.5 2 puff IH BIDR inh 03/27/18 [Symbicort 160/4.5] Cyanocobalamin (B-12) [Vitamin B12] 1,000 mcg PO DAILY #90 tablet 03/27/18 Ergocalciferol (VITAMIN D2) 50,000 unit PO QWEEK #15 capsule 03/27/18 [Drisdol (50,000 Unit)] Ipratropium/Albuterol Neb [Duoneb] 3 ml IH Q8H 90 Days #270 inhsol 10/07/18 Levofloxacin [Levaquin] 500 mg PO DAILY #5 tablet 03/27/18 Thiamine (B-1) [Vitamin B-1] 100 mg PO DAILY tablet 03/27/18 predniSONE [PredniSONE] See Taper PO AD #11 tablet 03/27/18 Allergies Allergy/AdvReac Type Severity Reaction Status Date / Time azithromycin [From Zithromax] Allergy Rash Verified 08/23/17 09:52 All systems ED: reviewed and negative except as stated. Constitutional: Denies: fever, chills Eyes: Denies: vision change Cardiovascular: Reports: chest pain, dyspnea on exertion. Denies: palpitations , edema, syncope Respiratory: Reports: dyspnea. Denies: cough, wheezes, sputum production Gastrointestinal: Reports: diarrhea (1 wk). Denies: abdominal pain, nausea, vomiting Musculoskeletal: Reports: back pain, neck pain Neurological: Denies: headache, weakness, numbness, paresthesias, confusion, vertigo Past Medical History - Past Medical History Attestation: Yes The following information was validated with the patient. Source: patient Medical history: Reports: asthma, CHF, COPD, hyperlipidemia, hypertension, renal disease, other Surgical history: Reports: other Psychiatric history: Reports: no psych history - Social History Smoking Status: Never smoker Smokeless Tobacco Status: No Alcohol use: Reports: none Drug use: Reports: none Physical Exam - General Limitations: no limitations General appearance: alert, lethargic - Head Head exam: atraumatic, normocephalic, normal inspection - Eye Eye exam: Present: normal appearance - ENT ENT exam: mucous membranes moist - Neck Neck exam: Present: normal inspection, trachea midline - Chest Chest inspection: Present: normal inspection, symmetric chest wall rise - Respiratory Respiratory exam: Present: other (diminished throughout) - Cardiovascular Cardiovascular exam: Present: regular rate, normal rhythm, normal heart sounds, +S1, +S2 - Abdominal Exam Abdominal exam: Present: soft, Non-Tender, distention, hernia - Extremities Exam Extremities exam: Present: normal capillary refill, pedal edema (trace). Absent : tenderness, calf tenderness - Back Exam Back exam: Absent: CVA tenderness (L) - Neurological Exam Neurological exam: Present: alert - Psychiatric Psychiatric exam: Present: normal affect - Skin Skin exam: Present: warm, dry, intact, normal color Course Course Narrative: Acute chest pain and sob past 1-2 hours. Initially 63% on room air which improved to 97-100% on non rebreather and again when deescalated to nasal canula. PERC 2, wells 3, HEART score ECG on arrival similar to previous ECG. Not tachycardic/tachypnic, afebrile. Will get troponin, d dimer. He is doing better since given O2 in ED. Will trial another nitro. ECG 1558: sinus arrhythmia, hr 81, pr 164, qt 377, LA enlargement, borderline st elevations I, aVL, V2-v6, no corresponding depressions or t wave inversions, similar to previous ECG on 03/20/18. 1645: CXR Increasing multifocal airspace is opacities. Findings are favored to represent pulmonary edema, however superimposed infection is a possibility in the appropriate clinical setting. Mild gaseous distention of the colon under the left hemidiaphragm. 1750: Pain free after 2 sl nitro, troponin neg, D dimer 517, Cr 1.26, will get CTA chest now to rule out PE given elevated d dimer. 2030: CT abd: Diffuse colonic distention, greatest in the sigmoid, similar to prior. CTA chest Negative for acute pulmonary embolism. Advanced chronic parenchymal lung disease, slowly progressive since 2010 and incompletely characterized on this exam. Differential considerations would include NSIP with organizing pneumonia, connective tissue disease related, drug toxicity or idiopathic. Recommend pulmonary medicine referral if the patient is not already being followed by a air filler. Enlarged main pulmonary artery suggests pulmonary hypertension, presumably at least in part related to underlying parenchymal lung disease.. Will admit to hospitalist service for continued cardiac work up. 2100: Will admit to hospitalist service along with pulmonology consult for parenchymal lung disease. Spoke to Dr Uriarte who accepted. Vital Signs Temperature 98.2 F 04/06/18 16:00 Pulse Rate 84 04/06/18 16:00 Respiratory Rate 24 04/06/18 16:00 Blood Pressure 143/100 04/06/18 16:00 O2 Sat by Pulse Oximetry 63 04/06/18 16:00 Temperature 97.6 F 04/06/18 21:58 Pulse Rate 54 04/06/18 21:58 Respiratory Rate 15 04/06/18 21:58 Blood Pressure 136/80 04/06/18 21:58 O2 Sat by Pulse Oximetry 94 04/06/18 21:58 Oxygen Delivery Oxygen Delivery Nasal Cannula Medical Decision Making - Lab Data Result diagrams: 04/06/18 16:00 04/06/18 16:00 Lab Results 04/06/18 04/06/18 04/06/18 Range/Units 16:00 16:00 16:15 WBC 7.3 (4.3-11.1) K/mcL RBC 4.32 (4.19-5.50) M/mcL Hgb 12.4 L (12.9-16.9) g/dL Hct 41.6 (37.5-50.1) % MCV 96.3 (83.0-100.0) fL MCH 28.7 (28.0-33.3) pg MCHC 29.8 L (31.6-35.5) g/dL RDW 14.0 (11.5-14.5) % Plt Count 153 (140-400) K/mcL MPV 10.7 (9.4-12.4) fL Immature Gran % 0.3 (0-4) % Seg Neutrophils % 84.0 % Lymphocytes % 10.3 % Monocytes % 3.6 % Eosinophils % 1.5 % Basophils % 0.3 % Neutrophils # 6.2 (1.6-8.9) K/mcL Lymphocytes # 0.8 (0.6-4.6) K/mcL Monocytes # 0.3 (0.0-1.3) K/mcL Eosinophils # 0.1 (0.0-0.6) K/mcL Basophils # 0.0 (0.0-0.2) K/mcL D-Dimer 517 H (0-500) ng/mLFEU Sodium 141 (136-145) mEq/L Potassium 3.9 (3.5-5.1) mEq/L Chloride 96 L (98-107) mEq/L Carbon Dioxide 33 H (23-29) mEq/L BUN 17 (8-23) mg/dL Creatinine 1.24 (0.70-1.30) mg/dL Est GFR ( Amer) > 60 (> 60) Est GFR (Non-Af Amer) 59 L (> 60) BUN/Creatinine Ratio 14 (6-26) Glucose 154 H (70-105) mg/dL Calculated Osmolality 297 (280-300) Calcium 9.6 (8.6-10.3) mg/dL Troponin I < 0.03 (< 0.04) ng/mL B-Natriuretic Peptide (Less than 100) pg/mL 04/06/18 Range/Units 16:16 WBC (4.3-11.1) K/mcL RBC (4.19-5.50) M/mcL Hgb (12.9-16.9) g/dL Hct (37.5-50.1) % MCV (83.0-100.0) fL MCH (28.0-33.3) pg MCHC (31.6-35.5) g/dL RDW (11.5-14.5) % Plt Count (140-400) K/mcL MPV (9.4-12.4) fL Immature Gran % (0-4) % Seg Neutrophils % % Lymphocytes % % Monocytes % % Eosinophils % % Basophils % % Neutrophils # (1.6-8.9) K/mcL Lymphocytes # (0.6-4.6) K/mcL Monocytes # (0.0-1.3) K/mcL Eosinophils # (0.0-0.6) K/mcL Basophils # (0.0-0.2) K/mcL D-Dimer (0-500) ng/mLFEU Sodium (136-145) mEq/L Potassium (3.5-5.1) mEq/L Chloride (98-107) mEq/L Carbon Dioxide (23-29) mEq/L BUN (8-23) mg/dL Creatinine (0.70-1.30) mg/dL Est GFR ( Amer) (> 60) Est GFR (Non-Af Amer) (> 60) BUN/Creatinine Ratio (6-26) Glucose (70-105) mg/dL Calculated Osmolality (280-300) Calcium (8.6-10.3) mg/dL Troponin I (< 0.04) ng/mL B-Natriuretic Peptide 28 (Less than 100) pg/mL Critical Care Time Critical Care Time: Yes Total Critical Care Time: 35 Attestation: Critical care performed: Time is exclusive of separately billable procedures. Time includes: direct patient care, patient reassessment, coordination of patient care, interpretation of data (laboratory data, radiology data, and respiratory data), review of patient's medical records, medical consultation and documentation of patient care. Procedures included in critical care time: Procedures excluded from critical care time:
[2018-04-06] MEDS ORDERED: Nitroglycerin 0.4 MG TAB.SUBL SL PRN (16:26)
[2018-04-06 16:52] LABS: Basophils % 0.3 %; Eosinophils # 0.1 K/mcL (0.0-0.6); Eosinophils % 1.5 %; Hematocrit 41.6 % (37.5-50.1); Hemoglobin 12.4 g/dL (12.9-16.9); Immature Granulocytes % 0.3 % (0-4); Lymphocytes # 0.8 K/mcL (0.6-4.6); Lymphocytes % 10.3 %; Mean Corpuscular HGB Conc 29.8 g/dL (31.6-35.5); Mean Corpuscular Hemoglobin 28.7 pg (28.0-33.3); Mean Corpuscular Volume 96.3 fL (83.0-100.0); Mean Platelet Volume 10.7 fL (9.4-12.4); Monocytes # 0.3 K/mcL (0.0-1.3); Monocytes % 3.6 %; Neutrophils # 6.2 K/mcL (1.6-8.9); Platelet Count 153 K/mcL (140-400); Red Blood Count 4.32 M/mcL (4.19-5.50)
--- NOTE | 2018-04-06 17:00 | Emergency Department Note ---
Disposition Clinical Impression: Disorder of lung parenchyma, COPD exacerbation, Hypoxia Disposition: Admitted As Inpatient Condition: Fair General Adult HPI - General Chief complaint: ED Chest Pain Stated complaint: CP Time Seen by Provider: 04/06/18 15:53 Source: patient Mode of arrival: EMS Limitations: no limitations - History of Present Illness Location: chest Pain Scale: 7 Quality: sharp Improves with: nothing Worsens with: movement Associated symptoms: Reports: chest pain, shortness of breath. Denies: cough, diaphoresis, fever/chills, headaches, nausea/vomiting, syncope Treatments Prior to Arrival: Aspirin, other (1 sl nitro via ems) - Related Data Home Medications Medication Instructions Recorded Confirmed Atorvastatin [Lipitor] 40 mg PO HS 07/29/15 03/20/18 Sertraline [Zoloft] 200 mg PO QAM 07/29/15 03/20/18 Albuterol Sulfate [Albuterol 2 puff IH Q4HR PRN 10/25/15 03/20/18 Inhaler] Omeprazole [PriLOSEC] 40 mg PO DAILY 01/10/17 03/20/18 Oxygen 1 each .ROUTE AD 01/10/17 03/20/18 Nitroglycerin [Nitrostat] 0.4 mg SL Q5M PRN 01/20/17 03/20/18 Montelukast [Singulair] 10 mg PO DAILY 01/07/18 03/20/18 Ranitidine HCl [Acid [employer] Machine Operator] 150 mg PO BID 01/07/18 03/20/18 Guaifenesin [Mucinex] 600 mg PO BID 01/14/18 03/20/18 Ondansetron ODT [Zofran ODT] 4 mg SL Q6HR PRN 01/14/18 03/20/18 Polyethylene Glycol 3350 [MiraLAX] 17 gm PO DAILY 01/14/18 03/20/18 Furosemide [Lasix] 40 mg PO BID 02/16/18 03/20/18 Potassium Chloride 20 meq PO BIDWM 02/16/18 03/20/18 HYDROcodone/Acet 7.5/325 mg [[place] 1 tab PO Q8H PRN 02/17/18 03/20/18 7.5-325 mg] Fluticasone Propionate [Flovent 88 mcg IH BID 03/20/18 03/20/18 Hfa] Gabapentin [Neurontin] 800 mg PO TID 03/20/18 03/20/18 Metoprolol Succinate [Toprol Xl] 100 mg PO DAILY 03/20/18 03/20/18 Previous Rx's Medication Instructions Recorded Fluticasone Propionate Nasal 2 spray NS DAILY 7 Days bottle 11/10/15 [Flonase] Folic Acid 1 mg PO DAILY tab 01/18/17 Budesonide/Formoterol 160/4.5 2 puff IH BIDR inh 03/27/18 [Symbicort 160/4.5] Cyanocobalamin (B-12) [Vitamin B12] 1,000 mcg PO DAILY #90 tablet 03/27/18 Ergocalciferol (VITAMIN D2) 50,000 unit PO QWEEK #15 capsule 03/27/18 [Drisdol (50,000 Unit)] Ipratropium/Albuterol Neb [Duoneb] 3 ml IH Q8H 90 Days #270 inhsol 03/27/18 Levofloxacin [Levaquin] 500 mg PO DAILY #5 tablet 03/27/18 Thiamine (B-1) [Vitamin B-1] 100 mg PO DAILY tablet 03/27/18 predniSONE [PredniSONE] See Taper PO AD #11 tablet 03/27/18 Allergies Allergy/AdvReac Type Severity Reaction Status Date / Time azithromycin [From Zithromax] Allergy Rash Verified 08/23/17 09:52 Constitutional: Denies: fever, chills Eyes: Denies: vision change Cardiovascular: Reports: chest pain, dyspnea on exertion. Denies: palpitations , edema, syncope Respiratory: Reports: dyspnea. Denies: cough, wheezes, sputum production Gastrointestinal: Reports: diarrhea (1 wk). Denies: abdominal pain, nausea, vomiting Musculoskeletal: Reports: back pain, neck pain Neurological: Denies: headache, weakness, numbness, paresthesias, confusion, vertigo Past Medical History - Past Medical History Medical history: Reports: asthma, CHF, COPD, hyperlipidemia, hypertension, renal disease, other Surgical history: Reports: other Psychiatric history: Reports: no psych history - Social History Smoking Status: Never smoker Smokeless Tobacco Status: No Alcohol use: Reports: none Drug use: Reports: none Physical Exam - General Limitations: no limitations General appearance: alert, lethargic Course Vital Signs Temperature 98.2 F 04/06/18 16:00 Pulse Rate 84 10/17/18 16:00 Respiratory Rate 24 04/06/18 16:00 Blood Pressure 143/100 04/06/18 16:00 O2 Sat by Pulse Oximetry 63 04/06/18 16:00 Temperature 97.6 F 04/06/18 21:58 Pulse Rate 54 04/06/18 21:58 Respiratory Rate 15 04/06/18 21:58 Blood Pressure 136/80 04/06/18 21:58 O2 Sat by Pulse Oximetry 94 04/06/18 21:58 Oxygen Delivery Oxygen Delivery Nasal Cannula Medical Decision Making - Lab Data Result diagrams: 04/06/18 16:00 04/06/18 16:00 Lab Results 04/06/18 04/06/18 04/06/18 Range/Units 16:00 16:00 16:15 WBC 7.3 (4.3-11.1) K/mcL RBC 4.32 (4.19-5.50) M/mcL Hgb 12.4 L (12.9-16.9) g/dL Hct 41.6 (37.5-50.1) % MCV 96.3 (83.0-100.0) fL MCH 28.7 (28.0-33.3) pg MCHC 29.8 L (31.6-35.5) g/dL RDW 14.0 (11.5-14.5) % Plt Count 153 (140-400) K/mcL MPV 10.7 (9.4-12.4) fL Immature Gran % 0.3 (0-4) % Seg Neutrophils % 84.0 % Lymphocytes % 10.3 % Monocytes % 3.6 % Eosinophils % 1.5 % Basophils % 0.3 % Neutrophils # 6.2 (1.6-8.9) K/mcL Lymphocytes # 0.8 (0.6-4.6) K/mcL Monocytes # 0.3 (0.0-1.3) K/mcL Eosinophils # 0.1 (0.0-0.6) K/mcL Basophils # 0.0 (0.0-0.2) K/mcL D-Dimer 517 H (0-500) ng/mLFEU Sodium 141 (136-145) mEq/L Potassium 3.9 (3.5-5.1) mEq/L Chloride 96 L (98-107) mEq/L Carbon Dioxide 33 H (23-29) mEq/L BUN 17 (8-23) mg/dL Creatinine 1.24 (0.70-1.30) mg/dL Est GFR ( Amer) > 60 (> 60) Est GFR (Non-Af Amer) 59 L (> 60) BUN/Creatinine Ratio 14 (6-26) Glucose 154 H (70-105) mg/dL Calculated Osmolality 297 (280-300) Calcium 9.6 (8.6-10.3) mg/dL Troponin I < 0.03 (< 0.04) ng/mL B-Natriuretic Peptide (Less than 100) pg/mL 04/06/18 Range/Units 16:16 WBC (4.3-11.1) K/mcL RBC (4.19-5.50) M/mcL Hgb (12.9-16.9) g/dL Hct (37.5-50.1) % MCV (83.0-100.0) fL MCH (28.0-33.3) pg MCHC (31.6-35.5) g/dL RDW (11.5-14.5) % Plt Count (140-400) K/mcL MPV (9.4-12.4) fL Immature Gran % (0-4) % Seg Neutrophils % % Lymphocytes % % Monocytes % % Eosinophils % % Basophils % % Neutrophils # (1.6-8.9) K/mcL Lymphocytes # (0.6-4.6) K/mcL Monocytes # (0.0-1.3) K/mcL Eosinophils # (0.0-0.6) K/mcL Basophils # (0.0-0.2) K/mcL D-Dimer (0-500) ng/mLFEU Sodium (136-145) mEq/L Potassium (3.5-5.1) mEq/L Chloride (98-107) mEq/L Carbon Dioxide (23-29) mEq/L BUN (8-23) mg/dL Creatinine (0.70-1.30) mg/dL Est GFR ( Amer) (> 60) Est GFR (Non-Af Amer) (> 60) BUN/Creatinine Ratio (6-26) Glucose (70-105) mg/dL Calculated Osmolality (280-300) Calcium (8.6-10.3) mg/dL Troponin I (< 0.04) ng/mL B-Natriuretic Peptide 28 (Less than 100) pg/mL Critical Care Time Critical Care Time: Yes Total Critical Care Time: 35 Attestation: Critical care performed: Time is exclusive of separately billable procedures. Time includes: direct patient care, patient reassessment, coordination of patient care, interpretation of data (laboratory data, radiology data, and respiratory data), review of patient's medical records, medical consultation and documentation of patient care. Procedures included in critical care time: Procedures excluded from critical care time: Attestation Statement - Attestation Attestation: I examined this patient and my medical decision-making was reviewed with the Resident Physician. I agree with the documented findings, disposition and treatment plan as described except to the extent set forth below. Patient presents to the emergency department with chief complaint shortness of breath and sharp stabbing left sided chest pain. Onset today. Patient has extensive history of COPD. He also has history of CHF. On examination he has not any distress. He does have decreased air exchange with end expiratory wheezing. Plan. Cardiac workup. Nebs. The patient's pain improved nitroglycerin. He is describing radiating pain to his jaw and arm. His symptoms seem more consistent with COPD. We will check a d-dimer. Likely admission as he is hypoxic. Elevated d-dimer. We will check CTA. CTA result reviewed. Admitting. Abdomen/Pelvis CT 04/06/18 00:00 IMPRESSION: Scattered airspace disease at the lung bases. Please see chest CT report. Diffuse colonic distention, greatest in the sigmoid, similar to prior. D/ / Chevy Guadalupe MD / Chevy Guadalupe MD Interpreting Provider: Chevy Guadalupe MD Chest X-Ray 04/06/18 16:00 IMPRESSION: Increasing multifocal airspace is opacities. Findings are favored to represent pulmonary edema, however superimposed infection is a possibility in the appropriate clinical setting. Mild gaseous distention of the colon under the left hemidiaphragm. D/ / Daryl Hooks MD / Daryl Hooks MD Interpreting Provider: Daryl Hooks MD Chest CTA 04/06/18 18:23 IMPRESSION: Negative for acute pulmonary embolism. Advanced chronic parenchymal lung disease, slowly progressive since 2010 and incompletely characterized on this exam. Differential considerations would include NSIP with organizing pneumonia, connective tissue disease related, drug toxicity or idiopathic. Recommend pulmonary medicine referral if the patient is not already being followed by a account leader. Enlarged main pulmonary artery suggests pulmonary hypertension, presumably at least in part related to underlying parenchymal lung disease. Mild cardiomegaly. D/ / 04/06/2018 20:11:05 Nazario Green / carisa Interpreting Provider: Nazario Green
[2018-04-06 18:18] LABS: BUN/Creatinine Ratio 14 (6-26); Blood Urea Nitrogen 17 mg/dL (8-23); Calcium 9.6 mg/dL (8.6-10.3); Carbon Dioxide 33 mEq/L (23-29); Chloride 96 mEq/L (98-107); Glucose 154 mg/dL (70-105); Osmolality,Calculated 297 (280-300); Potassium 3.9 mEq/L (3.5-5.1); Sodium 141 mEq/L (136-145); eGFR For Non-African Americans 59 (> 60)
[2018-04-06] MEDS ORDERED: Isovue-370 500 ML INFUS..BTL IV ONE (18:23)
[2018-04-06 18:58] LABS: Troponin I < 0.03 ng/mL (< 0.04)
[2018-04-06] MEDS ORDERED: Ipratropium/Albuterol Neb 3 ML IH ONE (20:13)
[2018-04-06] MEDS ORDERED: Acetaminophen 325 MG TABLET PO PRN (23:59)
[2018-04-06] MEDS ORDERED: Ipratropium/Albuterol Neb 3 ML IH PRN (23:59)
[2018-04-06] MEDS ORDERED: traMADol 50 MG TABLET PO PRN (23:59)
[2018-04-06] MEDS ORDERED: Naloxone 0.4 MG/ML INJ IVP PRN (23:59)
--- NOTE | 2018-04-07 00:32 | Internal Med History&Physical ---
Date of Encounter: 04/06/18 Time of Encounter: 21:20 Internal Medicine - H&P: HPI Chief complaint: chest pain, SOB, fever Admitted From: Emergency Dept Plans for Post Hospital Care: Home History of present illness: Mr. Dumas is a 62 year old male who presents with a one day history of chest pain and several day history of worsening, dyspnea, cough, productive sputum, and subjective fevers. He was recently discharged from the hospital after complicated for COPD exacerbation, acute on chronic respiratory failure, and suspicion for pneumonia. He was intubated and mechanically ventilated in ICU during the hospital stay. He finished his antibiotics, tapering steroids, and aerosols with slight improvement and then followed with significant decompensation after his medications were discontinued. He then developed chest pain over last 24 hours. Workup in ER revealed a CT angiogram of the chest, which was negative for PE. However, he had significant dilated pulmonary arteries and parenchymal disease suggesting need for invasive studies such as bronchoscopy. Patient was therefore admitted to hospitalist service. I saw patient in the ER, and he reiterates the above history. I suspect he has pulmonary hypertension from long-standing sleep apnea/obesity hypoventilation syndrome. He wears CPAP at home, but he is in need of BiPAP. He states he qualified for BiPAP at his last admission but he has not yet received or had set up of BiPAP at home. He wears oxygen continuously now at home with little relief. He used to wear oxygen on a PRN basis. He notes that he has had increasing dyspnea, productive cough, wheezing, and fatigue since his last admission. He also has had subjective fevers. Chest pain is better now compared to his initial presentation. He denies any hemoptysis. Has some diarrhea but no nausea or vomiting. Of note, he had MRSA screen positive just 2 weeks ago. Clinically, he appears to have pneumonia, and I worry this may be MRSA pneumonia. Given his failed outpatient treatment for COPD/pneumonia, MRSA screen positive, acute on chronic respiratory failure and need for BiPAP, I feel that he will need aggressive treatment here in the hospital with possible bronchoscopy. Given his respiratory distress, I am placing him on BiPAP tonight with hopes of clinical improvement by morning. Should he decline and/or worsen, he may need to move to the ICU for ongoing care and invasive management. However, for the present time, we will try BiPAP and conservative measures. Additionally, we will consult pulmonology as he may need invasive studies. Past Med Surg Social Fam HX - Past Medical History Attestation: Yes The following information was validated with the patient. Source: patient, old records reviewed Medical history: asthma, CHF, COPD, hyperlipidemia, hypertension Additional medical history: obesity hypoventilation syndrome Psychiatric history: no psych history - Past Surgical History Surgical History: herniorrhaphy Additional surgical history: Hernia - Social History Smoking Status: Never smoker Smokeless Tobacco Status: No Alcohol use: none Drug use: none Current living situation: Home, With Family Activity Level: Uses cane/walker Recent Out of Country Travel Within the Last 8 Weeks: No - Family History Mother Living Status: Hx Family Cardiac Disorders: Yes Hx Family Respiratory Disorders: No Hx Family Cancer: No Hx Family GI Disorders: No Hx Family Endocrine Disorder: No Hx Family Neuromuscular Disorders: No Hx Family Neurologic Disorders: No Hx Family HEENT Disorders: No Hx Family Autoimmune Disorders: No Father Living Status: Hx Family Cardiac Disorders: No Hx Family Respiratory Disorders: No Hx Family Cancer: No Hx Family GI Disorders: No Hx Family Endocrine Disorder: No Hx Family Neuromuscular Disorders: No (ALS) Hx Family Neurologic Disorders: No Hx Family HEENT Disorders: No Hx Family Autoimmune Disorders: No Internal Medicine - H&P: Meds Atorvastatin [Lipitor] 40 mg PO HS 07/29/15 [History] Sertraline [Zoloft] 200 mg PO QAM 07/29/15 [History] Albuterol Sulfate [Albuterol Inhaler] 2 puff IH Q4HR PRN 10/25/15 [History] Fluticasone Propionate Nasal [Flonase] 2 spray NS DAILY 7 Days bottle 11/10/15 [Rx] Omeprazole [PriLOSEC] 40 mg PO DAILY 01/10/17 [History] Oxygen 1 each .ROUTE AD 01/10/17 [History] Folic Acid 1 mg PO DAILY tab 01/18/17 [Rx] Nitroglycerin [Nitrostat] 0.4 mg SL Q5M PRN 01/20/17 [History] Montelukast [Singulair] 10 mg PO DAILY 01/07/18 [History] Ranitidine HCl [Acid Application Security Consultant] 150 mg PO BID 01/07/18 [History] Guaifenesin [Mucinex] 600 mg PO BID 01/14/18 [History] Ondansetron ODT [Zofran ODT] 4 mg SL Q6HR PRN 01/14/18 [History] Polyethylene Glycol 3350 [MiraLAX] 17 gm PO DAILY 01/14/18 [History] Furosemide [Lasix] 40 mg PO BID 02/16/18 [History] Potassium Chloride 20 meq PO BIDWM 02/16/18 [History] HYDROcodone/Acet 7.5/325 mg [[place] 7.5-325 mg] 1 tab PO Q8H PRN 02/17/18 [ History] Fluticasone Propionate [Flovent Hfa] 88 mcg IH BID 03/20/18 [History] Gabapentin [Neurontin] 800 mg PO TID 03/20/18 [History] Metoprolol Succinate [Toprol Xl] 100 mg PO DAILY 03/20/18 [History] Budesonide/Formoterol 160/4.5 [Symbicort 160/4.5] 2 puff IH BIDR inh 03/27/18 [ Rx] Cyanocobalamin (B-12) [Vitamin B12] 1,000 mcg PO DAILY #90 tablet 03/27/18 [Rx] Ergocalciferol (VITAMIN D2) [Drisdol (50,000 Unit)] 50,000 unit PO QWEEK #15 capsule 03/27/18 [Rx] Ipratropium/Albuterol Neb [Duoneb] 3 ml IH Q8H 90 Days #270 inhsol 03/27/18 [Rx] Levofloxacin [Levaquin] 500 mg PO DAILY #5 tablet 03/27/18 [Rx] Thiamine (B-1) [Vitamin B-1] 100 mg PO DAILY tablet 03/27/18 [Rx] predniSONE [PredniSONE] See Taper PO AD #11 tablet 03/27/18 [Rx] 3 Allergy/AdvReac Type Severity Reaction Status Date / Time azithromycin [From Zithromax] Allergy Rash Verified 08/23/17 09:52 - Constitutional Constitutional: fatigue, fever(s), weakness, no chills, no night sweats - EENT Eyes: no blurry vision, no change in vision Ears: no ear pain, no tinnitus Nose, mouth and throat: no nasal congestion, no sinus pressure, no sore throat - Cardiovascular Cardiovascular ROS IM: chest pain, dyspnea, dyspnea on exertion, no orthopnea, no paroxysmal nocturnal dyspnea, no syncope - Respiratory Respiratory: cough, dyspnea, pain on inspiration, chest congestion, excessive phlegm production, change in phlegm color, no hemoptysis - Gastrointestinal Gastrointestinal: diarrhea, no abdominal pain, no hematemesis, no hematochezia, no melena, no nausea, no vomiting - Genitourinary Genitourinary ROS male: no dysuria, no flank pain, no hematuria - Musculoskeletal Musculoskeletal ROS IM: arthralgias, no back pain - Integumentary Integumentary IM: no rash, no jaundice - Neurological Neurological ROS: no dizziness, no focal weakness - Psychiatric Psychiatric: no anxiety, no depression - Endocrine Endocrine IM: no polydipsia, no polyuria - Allergic/Immunologic Allergic/Immunologic: wheezing, no GI upset with certain foods - Constitutional Vitals: Temp Pulse Resp BP Pulse Ox 97.6 F 54 15 136/80 92 04/06/18 21:58 04/06/18 21:58 04/06/18 21:58 04/06/18 21:58 04/06/18 22:36 General appearance: Present: cooperative, mild distress, A&O X 3, pleasant, answers questions appropriately Exam: no active chest pain presently; mild to moderate respiratory distress - Head Head exam: Present: atraumatic, normal inspection - Eye Eye exam: Present: EOMI, PERRL. Absent: scleral icterus Pupils: Present: normal accommodation - ENT ENT exam: Present: mucous membranes dry, normal exam, normal oropharynx - Neck Neck exam general surgery: Present: full ROM, supple. Absent: tenderness, nuchal rigidity, thyromegaly - Respiratory Respiratory exam: Present: prolonged expiratory phase, rales, respiratory distress, rhonchi, tachypnea. Absent: chest wall tenderness, wheezes - Cardiovascular Cardiovascular exam: Present: bradycardia (HR 50's), distant heart sounds, RRR, +S1, +S2. Absent: diastolic murmur, systolic murmur - GI/Abdominal GI/Abdominal exam: Present: normal bowel sounds, soft. Absent: guarding, mass, rebound, tenderness - Extremities Exam Extremities exam: Present: full ROM, normal capillary refill, pedal edema (1-2+) , warm, radial pulses palpable and symmetrical. Absent: calf tenderness, tenderness - Back Exam Back exam: Absent: CVA tenderness (L), CVA tenderness (R) - Neurological Exam Neurological exam: Present: alert, CN II-XII intact, oriented X3, no focal deficits - Psychiatric Psychiatric exam: Present: normal affect, normal mood - Skin Skin exam: Present: dry, warm. Absent: rash Internal Med - H&P Results - Labs CBC & Chem 7: 04/06/18 16:00 04/06/18 16:00 - EKG Data EKG comments: 04/07/18 00:43 unable to find EKG as obtained in ER; repeat EKG ordered - Diagnostic Studies CT scan - chest Status: image reviewed by me (negatove for PE; enlaged pulmonary arteries; multifocal opacities) - Assessment and plan (1) Multifocal pneumonia Current Visit: Yes Status: Acute Assessment and plan: 1. I ordered STAT blood cultures, sputum cultures, and IV Vancomycin and Levaquin. 2. Oxygen as needed for support. 3. Aerosols PRN wheezing. 4. Consult Pulmonary for assistance and for possible bronchoscopy. 5. Suspect MRSA. Will place in precautions. (2) Obesity hypoventilation syndrome Current Visit: Yes Status: Chronic Assessment and plan: 1. Patient is in need of Bipap at night chronically. 2. Will place on Bipap now acutely but will need coordination of BiPap upon discharge. 3. ECHO ordered to assess for pulmonary hypertension. (3) Chest pain Current Visit: Yes Status: Acute Assessment and plan: 1. Resolved. 2. Will trend troponins and EKG's. 3. Likely due to pneumonia, but patient will likely need cardiac workup once acute issues addressed/resolved. Qualifiers: Chest pain type: other chest pain Qualified Code(s): R07.89 - Other chest pain; R07.8 - Other chest pain (4) Acute and chronic respiratory failure with hypoxia Current Visit: Yes Status: Acute Assessment and plan: 1. Will provide oxygen and BiPap as above. 2. Monitor clinically. If patient decompensates further, will order ABG and consider further aggressive respiratory support. (5) DVT prophylaxis Current Visit: Yes Status: Acute Assessment and plan: 1. Heparin SQ.
[2018-04-07 01:12] LABS: Basophils % 0.4 %; Eosinophils # 0.1 K/mcL (0.0-0.6); Eosinophils % 1.6 %; Hematocrit 38.8 % (37.5-50.1); Hemoglobin 11.6 g/dL (12.9-16.9); Immature Granulocytes % 0.3 % (0-4); Lymphocytes # 1.5 K/mcL (0.6-4.6); Lymphocytes % 18.6 %; Mean Corpuscular HGB Conc 29.9 g/dL (31.6-35.5); Mean Corpuscular Hemoglobin 28.6 pg (28.0-33.3); Mean Corpuscular Volume 95.8 fL (83.0-100.0); Mean Platelet Volume 11.1 fL (9.4-12.4); Monocytes # 0.4 K/mcL (0.0-1.3); Monocytes % 5.5 %; Neutrophils # 5.9 K/mcL (1.6-8.9); Platelet Count 159 K/mcL (140-400); Red Blood Count 4.05 M/mcL (4.19-5.50); Red Cell Distribution Width 13.8 % (11.5-14.5); Segmented Neutrophils % 73.6 %
[2018-04-07 01:20] LABS: INR 1.1
[2018-04-07] MEDS: *HR* Heparin 5,000 UNIT/ML VIAL SQ SCH ×4 (01:21→21:23)
[2018-04-07 01:23] LABS: Activated Partial Thrombo Time 32.3 Seconds (26.0-36.0)
[2018-04-07] MEDS: Levofloxacin 750 MG/150 ML 750 MG/150 ML BAG IVPB SCH (01:28)
[2018-04-07 01:36] LABS: Alanine Aminotransferase 13 Units/L (7-52); Albumin 3.6 g/dL (3.5-5.7); Albumin/Globulin Ratio 1.4 (1.1-2.2); Alkaline Phosphatase 68 Units/L (34-104); Aspartate Amino Transferase 14 Units/L (13-39); BUN/Creatinine Ratio 13 (6-26); Bilirubin,Total 0.5 mg/dL (0.3-1.0); Blood Urea Nitrogen 15 mg/dL (8-23); Calcium 9.4 mg/dL (8.6-10.3); Carbon Dioxide 42 mEq/L (23-29); Chloride 96 mEq/L (98-107); Globulin 2.6 g/dL (2.4-3.5); Glucose 160 mg/dL (70-105); Magnesium 2.2 mg/dL (1.6-2.6); Osmolality,Calculated 298 (280-300); Potassium 3.5 mEq/L (3.5-5.1); Sodium 142 mEq/L (136-145); Total Protein 6.2 g/dL (6.4-8.9); eGFR For Non-African Americans > 60 (> 60)
[2018-04-07 11:35] LABS: Immature Platelets 6.7 % (1.1-6.1)
--- NOTE | 2018-04-07 13:34 | Electrocardiograph Report ---
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
--- NOTE | 2018-04-07 13:46 | Electrocardiograph Report ---
[address] [place] [address] Test Date: 2018-04-06 Pat Name: Juancarlos Dumas Department: [id number] Room: 3B46 Gender: M Site Auditor: : 1955 Requested By: Darrell Guillen Order Number: [id number] Reading MD: Linnea Domínguez Measurements Intervals [place] Rate: 81 P: 20 NV: 164 QRS: -3 QRSD: 104 T: 38 QT: 377 QTc: 438 Interpretive Statements Sinus arrhythmia Left atrial enlargement Electronically Signed On 04-07-2018 13:44:28 EDT by Linnea Domínguez
[2018-04-07] MEDS ORDERED: Aminoglycoside Consult 1 EACH MC ONE (14:58)
--- NOTE | 2018-04-07 15:26 | Internal Med Progress Note ---
Hospitalist Progress Note - Encounter Date of Encounter: 04/07/18 Time of Encounter: 13:00 - Subjective Interval History: Patient is evaluated at the bedside today he continues to have dyspnea he continues to wear his BiPAP and he is tolerating it well. He has a chief complaint of back pain rated as a 5 on a scale of 10 with 10 being the most severe. States that it is constant nonradiating and in the lumbar spine. Reports that it is sharp, and stabbing. Request something stronger for pain. Nursing staff reports that every time he is taken off the BiPAP and is ambulated to the bathroom he has severe desaturation, with SPO2 room air down into the 60s. - Exam Vitals: Temp Pulse Resp BP Pulse Ox 97.6 F 54 21 136/80 100 04/06/18 21:58 04/06/18 21:58 04/07/18 09:15 04/06/18 21:58 04/07/18 09:15 Exam: spo2 100 % with bipap in place. - Assessment and Plan (1) Acute and chronic respiratory failure with hypoxia Current Visit: Yes Status: Acute Assessment and Plan: SPO2 is 100% as long as the patient is on the BiPAP. Carbon dioxide was el evated at 42 Pulmonary artery consult with possible bronchoscopy is pending. Have put in a call to pulmonary to see if they would be a potential for bronchoscopy today. We will continue with his BiPAP if his condition worsens will consider ICU transfer. Stat blood gases will be obtained. (2) Multifocal pneumonia Current Visit: Yes Status: Acute Assessment and Plan: Blood cultures are still pending. Pulmonology consult is pending We will continue with IV vancomycin, and levothyroxine IV piggyback We will continue with BiPAP (3) Obesity hypoventilation syndrome Current Visit: Yes Status: Chronic Assessment and Plan: Continue with BiPAP, currently NPO we will consider low-carb diet once he is able to have food. Daily weight Nutritions consult to discuss weight loss, (4) Chest pain Current Visit: Yes Status: Acute Assessment and Plan: denies chest pain today Will continue to monitor (5) DVT prophylaxis Current Visit: Yes Status: Acute Assessment and Plan: Continue with Heparin - Summary of Assessment and Plan Summary of Assessment and Plan: Mr. Dumas is a 62-year-old -[place] male who was admitted through the emergency room for respiratory failure with hypoxemia, associated chest pain dyspnea cough productive and felt that he had fevers. He has been most recently discharged from hospital after a complicated COPD exacerbation with acute on chronic respiratory failure and suspicions for pneumonias. He is oxygen dependent at home and also wears a CPAP. He states that he requires a BiPAP because the CPAP is not strong enough to keep his oxygen saturations up. He has long-standing history of obstructive sleep apnea obesity hypoventilation syndrome. In the emergency room he did note that he had increased dyspnea productive cough wheezing and fatigue since his last admission. He denies any hemoptysis. States that he does have diarrhea. Today he denies any nausea or vomiting. He is on MRSA precautions due to having a positive screen 2 weeks ago. Today he has very compliant with wearing his BiPAP and he has SPO2 of 100%. However once she takes the BiPAP off and he has minimal exertion as going to the bathroom he severely desats down into the below 80 sats. , Pulmonology consult was placed and spoke with the tafe teacher they are coming up evaluate him, with possible pending Bronchoscope. Will continue NPO status until evaluation. All medications and ATB will be continued as ordered. Will continue with Bipap. - Time Spent with Patient Total time spent is greater than 50% in coordination of care (as documented) at patient's floor/unit and/or counseling patient: Internal Medicine: Result - Labs CBC & Chem 7: 04/07/18 01:02 04/07/18 01:02 Labs: Short CBC 04/06/18 04/07/18 Range/Units 16:00 01:02 WBC 7.3 8.0 (4.3-11.1) K/mcL Hgb 12.4 L 11.6 L (12.9-16.9) g/dL Hct 41.6 38.8 (37.5-50.1) % Plt Count 153 159 (140-400) K/mcL Neutrophils # 6.2 5.9 (1.6-8.9) K/mcL BMP 04/06/18 04/07/18 16:00 01:02 Sodium 141 142 Potassium 3.9 3.5 Chloride 96 L 96 L Carbon Dioxide 33 H 42 H* BUN 17 15 Creatinine 1.24 1.19 Glucose 154 H 160 H Calcium 9.6 9.4 Cardiac Enzymes 1004/07/18 04/07/18 Range/Units 16:00 01:02 05:57 Troponin I < 0.03 < 0.03 < 0.03 (< 0.04) ng/mL Liver Function 04/07/18 Range/Units 01:02 Total Bilirubin 0.5 (0.3-1.0) mg/dL AST 14 (13-39) Units/L ALT 13 (7-52) Units/L Alkaline Phosphatase 68 (34-104) Units/L Albumin 3.6 (3.5-5.7) g/dL - ABG Interpretation ABG results: PT/INR, D-dimer, Blood gases pending PT 12.0 Seconds (9.4-12.1) 04/07/18 01:02 D-Dimer 517 ng/mLFEU (0-500) H 04/06/18 16:15 - Impressions Impressions Abdomen/Pelvis CT 04/06/18 00:00 IMPRESSION: Scattered airspace disease at the lung bases. Please see chest CT report. Diffuse colonic distention, greatest in the sigmoid, similar to prior. D/ / Chevy Guadalupe MD / Chevy Guadalupe MD Interpreting Provider: Chevy Guadalupe MD Chest X-Ray 04/06/18 16:00 IMPRESSION: Increasing multifocal airspace is opacities. Findings are favored to represent pulmonary edema, however superimposed infection is a possibility in the appropriate clinical setting. Mild gaseous distention of the colon under the left hemidiaphragm. D/ / Daryl Hooks MD / Daryl Hooks MD Interpreting Provider: Daryl Hooks MD Chest CTA 04/06/18 18:23 IMPRESSION: Negative for acute pulmonary embolism. Advanced chronic parenchymal lung disease, slowly progressive since 2010 and incompletely characterized on this exam. Differential considerations would include nonspecific interstitial pneumonia (NSIP)/organizing pneumonia (OP), connective tissue disease related, drug toxicity or idiopathic. Recommend pulmonary medicine referral if the patient is not already being followed by a tafe teacher. Enlarged main pulmonary artery suggests pulmonary hypertension, presumably at least in part related to underlying parenchymal lung disease. Mild cardiomegaly. Critical results were called by Dr. Nazario Green to Darrell Guillen on 04/06/2018 at 8:03 p.m.. D/ / 04/06/2018 20:11:05 Nazario Green / carisa Interpreting Provider: Nazario Green Consult Discharge Plan - Plan (4) Chest pain Qualifiers: Chest pain type: other chest pain Qualified Code(s): R07.89 - Other chest pain; R07.8 - Other chest pain
[2018-04-07] MEDS ORDERED: Perflutren Lipid Microsphere 1.3 ML in 0.9 % Sodium Chloride 8.7 ML IVP ONE (15:31)
[2018-04-07] MEDS: *HR* HYDROcodone/Acet 5/325 mg TABLET PO PRN ×2 (15:46→22:20)
--- NOTE | 2018-04-07 16:00 | Pulmonology Consult Note ---
Date of Encounter: 04/07/18 Time of Encounter: 15:00 Assessment and Plan (1) Acute and chronic respiratory failure ([id number]) Current Visit: Yes Status: Acute Has acute on chronic hypoxic hypercapnic respiratory failure which is multifactorial secondary to COPD, SHALINI, acute on chronic diastolic heart failure. Looks like COPD exacerbation with acute on chronic diastolic dysfunction presented with current symptoms and worsening acute on chronic respiratory failure. 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 At some point he might need bronchoscopy Evaluation the day he responded quickly with BiPAP is more in favor of acute on chronic diastolic heart failure as patient did not receive any steroid therapy highly doubt as an inflammatory pneumonia which would not got better with out steroid therapy. Will wait for the bronchoscopy records from [facility] today he quickly turned around and i dont think he needed bronchoscopy during this admission. Qualifiers: Respiratory failure complication: hypoxia and hypercapnia Qualified Code(s): J96.21 - Acute and chronic respiratory failure with hypoxia; J96.22 - Acute and chronic respiratory failure with hypercapnia (2) Acute exacerbation of chronic obstructive airways disease Current Visit: No Status: Acute Patient with recurrent pneumonia now he has chronic interstitial changes with background of COPD recently recovered from possible pneumonia, COPD exacerbation and acute on chronic diastolic heart failure he was sent home on steroid taper which was quickly tapered within 7 days. Looks like a COPD exacerbation came ba with some acute on chronic diastolic dysfunction start on prednisone therapy to continue current regimen of bronchodilators. Patient will need qualification for BiPAP as patient has chronic hypercarbia. When he gets discharged this time he will need at least a 21 day steroid taper. (3) Pneumonia Current Visit: Yes Status: Acute Patient has is chronic consolidative opacity with air bronchogram is some interstitial changes with some groundglass opacities this can be a possibility of underlying idiopathic interstitial pneumonia like NSIP, cryptogenic organizing pneumonia Low likelihood for chronic eosinophilic pneumonia as he improved without any steroids i think he has low likelihood for underlying idiopathic interstitial pneumonia but patient had a bronchoscopy few months ago in [facility] will get the results of it will hold off bronchoscopy for now. We will evaluate as an outpatient for bronchoscopy if needed. Patient does not have white count no fever highly doubt this is bacterial in origin. Can de- escalate antibiotics based on clinical response. Conveyed my assessment and plan to the primary admitting hospitalist Qualifiers: Laterality: bilateral Lung location: unspecified part of lung Qualified Code(s): J18.9 - Pneumonia, unspecified organism (4) Acute on chronic diastolic heart failure Current Visit: Yes Status: Acute To continue gentle diuresis as patient has this background acute on chronic diastolic dysfunction. History of Present Illness Consult date: 04/07/18 Requesting physician: Syd Palm Reason for consult: dyspnea, cough, COPD, abnormal CXR/CT Chief complaint: Dyspnea with chest pain History of present illness: 62-year-old male with past medical history significant for morbid obesity, SHALINI, COPD on home oxygen comes with acute on chronic hypoxic hypercapnic respiratory failure most likely secondary to COPD flareup with complicated by acute on chronic diastolic dysfunction patient presently with more off chest pain or shortness of breath some cough but he says to me that he does not have much sputum production denies any hemoptysis the symptoms worsening was almost 1 or 2 days when he came to the hospital patient like the BiPAP that helps his breathing and he says almost back to his baseline now. Patient's CTA showed bilateral air bronchograms with consolidative opacities with chronic interstitial changes patient had this changes for the past 2-3 months with slight worsening , patient had her recent hospital stay for COPD exacerbation and treated for pneumonia looks like his steroid taper was tapered too soon. Patient denies any current chest pain, chest tightness he is able to lie flat. Patient has chronic pedal edema. Pulmonary was consult that because of this chronic interstitial changes with Bronchograms for possible bronchoscopy. Interviewing the patient had looks like patient had a bronchoscopy 2-3 months ago in [facility]. Past Med Surg Social Fam HX - Past Medical History Medical history: asthma, CHF, COPD, hyperlipidemia, hypertension Additional medical history: obesity hypoventilation syndrome Psychiatric history: no psych history - Past Surgical History Surgical History: herniorrhaphy Additional surgical history: Hernia - Social History Smoking Status: Never smoker Smokeless Tobacco Status: No Alcohol use: none Drug use: none - Family History Mother Living Status: Hx Family Cardiac Disorders: Yes Hx Family Respiratory Disorders: No Hx Family Cancer: No Hx Family GI Disorders: No Hx Family Endocrine Disorder: No Hx Family Neuromuscular Disorders: No Hx Family Neurologic Disorders: No Hx Family HEENT Disorders: No Hx Family Autoimmune Disorders: No Father Living Status: Hx Family Cardiac Disorders: No Hx Family Respiratory Disorders: No Hx Family Cancer: No Hx Family GI Disorders: No Hx Family Endocrine Disorder: No Hx Family Neuromuscular Disorders: No (ALS) Hx Family Neurologic Disorders: No Hx Family HEENT Disorders: No Hx Family Autoimmune Disorders: No Medications and Allergies Atorvastatin [Lipitor] 40 mg PO HS 07/29/15 [History] Sertraline [Zoloft] 200 mg PO QAM 07/29/15 [History] Albuterol Sulfate [Albuterol Inhaler] 2 puff IH Q4HR PRN 10/25/15 [History] Fluticasone Propionate Nasal [Flonase] 2 spray NS DAILY 7 Days bottle 11/10/15 [Rx] Omeprazole [PriLOSEC] 40 mg PO DAILY 01/10/17 [History] Oxygen 1 each .ROUTE AD 01/10/17 [History] Folic Acid 1 mg PO DAILY tab 01/18/17 [Rx] Nitroglycerin [Nitrostat] 0.4 mg SL Q5M PRN 01/20/17 [History] Montelukast [Singulair] 10 mg PO DAILY 01/07/18 [History] Ranitidine HCl [Acid [employer]] 150 mg PO BID 01/07/18 [History] Guaifenesin [Mucinex] 600 mg PO BID 01/14/18 [History] Ondansetron ODT [Zofran ODT] 4 mg SL Q6HR PRN 01/14/18 [History] Polyethylene Glycol 3350 [MiraLAX] 17 gm PO DAILY 01/14/18 [History] Furosemide [Lasix] 40 mg PO BID 02/16/18 [History] Potassium Chloride 20 meq PO BIDWM 02/16/18 [History] HYDROcodone/Acet 7.5/325 mg [[place] 7.5-325 mg] 1 tab PO Q8H PRN 02/17/18 [History] Fluticasone Propionate [Flovent Hfa] 88 mcg IH BID 03/20/18 [History] Gabapentin [Neurontin] 800 mg PO TID 03/20/18 [History] Metoprolol Succinate [Toprol Xl] 100 mg PO DAILY 03/20/18 [History] Budesonide/Formoterol 160/4.5 [Symbicort 160/4.5] 2 puff IH BIDR inh 03/27/18 [Rx] Cyanocobalamin (B-12) [Vitamin B12] 1,000 mcg PO DAILY #90 tablet 03/27/18 [Rx] Ergocalciferol (VITAMIN D2) [Drisdol (50,000 Unit)] 50,000 unit PO QWEEK #15 capsule 03/27/18 [Rx] Ipratropium/Albuterol Neb [Duoneb] 3 ml IH Q8H 90 Days #270 inhsol 03/27/18 [Rx] Thiamine (B-1) [Vitamin B-1] 100 mg PO DAILY tablet 03/27/18 [Rx] Allergy/AdvReac Type Severity Reaction Status Date / Time azithromycin [From Zithromax] Allergy Rash Verified 08/23/17 09:52 All Systems: The remainder of the systems were reviewed and are negative Physical Examination Vital Signs: Vital Signs, Last 4 Hours Temp Pulse Resp BP Pulse Ox 04/07/18 15:57 100 04/07/18 15:24 98.2 F 53 20 145/73 100 Effort: mildly labored Auscultation: left: rales (minimal scattered rales), bilateral: diminished breath sounds (basilar) Results - Laboratory Findings CBC and BMP: 04/07/18 01:02 04/07/18 01:02 PT/INR, D-dimer PT 12.0 Seconds (9.4-12.1) 04/07/18 01:02 D-Dimer 517 ng/mLFEU (0-500) H 04/06/18 16:15 Abnormal lab findings: Abnormal lab results RBC 4.05 M/mcL (4.19-5.50) L 04/07/18 01:02 Hgb 11.6 g/dL (12.9-16.9) L 04/07/18 01:02 MCHC 29.9 g/dL (31.6-35.5) L 04/07/18 01:02 Immature Plt Fraction 6.7 % (1.1-6.1) H 04/07/18 01:02 D-Dimer 517 ng/mLFEU (0-500) H 04/06/18 16:15 Chloride 96 mEq/L (98-107) L 04/07/18 01:02 Carbon Dioxide 42 mEq/L (23-29) H* 04/07/18 01:02 Glucose 160 mg/dL (70-105) H 04/07/18 01:02 Serum Total Protein 6.2 g/dL (6.4-8.9) L 04/07/18 01:02 - Microbiology Findings Microbiology Findings: Microbiology, Last 48 Hours 04/07/18 00:59 Blood Culture - Preliminary Peripheral Venipuncture Culture is incubating and being continuously monitored for growth. Final report to follow. 04/07/18 00:55 Blood Culture - Preliminary Peripheral Venipuncture Culture is incubating and being continuously mo nitored for growth. Final report to follow. - Clinical Findings Intake & Output: Intake & Output 04/07/18 04/07/18 04/07/18 07:59 15:59 23:59 Output Total 300 / 300 Balance -300 / -300 Consult Discharge Plan - Plan Referrals: NONE,PCP [Primary Care Provider] -
[2018-04-07] MEDS: Furosemide 40 MG/4 ML VIAL IVP SCH (21:25)
[2018-04-07] MEDS: predniSONE 20 MG TABLET PO SCH (21:25)
[2018-04-08] MEDS: Levofloxacin 750 MG/150 ML 750 MG/150 ML BAG IVPB SCH
[2018-04-08] MEDS: Gabapentin 400 MG CAPSULE PO SCH ×2 (02:36→09:35)
[2018-04-08] MEDS: *HR* Heparin 5,000 UNIT/ML VIAL SQ SCH (05:11)
--- NOTE | 2018-04-08 07:44 | Pulmonology Progress Note ---
Date of Encounter: 04/08/18 Time of Encounter: 07:45 Assessment and Plan (1) Acute and chronic respiratory failure ([id number]) Current Visit: Yes Status: Acute Patient presents today both COPD exacerbation and acute on chronic diastolic dysfunction patient responded well to steroids and diuresis and did not think he had a recurrent pneumonia. Still we didnt get the records of bronchoscopy from [facility] he will need outpatient evaluation. Patient wants to go home I counseled him that he needs to use CPAP until he gets outpatient polysomnography. He needs a 6 minute walk test before discharge. Patient says his back to his baseline patient should be followed up with pulmonology in 2-4 weeks. Qualifiers: Respiratory failure complication: hypoxia and hypercapnia Qualified Code(s): J96.21 - Acute and chronic respiratory failure with hypoxia; J96.22 - Acute and chronic respiratory failure with hypercapnia (2) Acute exacerbation of chronic obstructive airways disease Current Visit: No Status: Acute Send him home on his home bronchodilators with 2 weeks steroid taper (3) Pneumonia Current Visit: Yes Status: Acute Complete a 7 days course of Levaquin. Qualifiers: Laterality: bilateral Lung location: unspecified part of lung Qualified Code(s): J18.9 - Pneumonia, unspecified organism (4) Acute on chronic diastolic heart failure Current Visit: Yes Status: Acute Patient should be sent home on low-dose diuresis. And should be managed by outpatient cardiology Subjective Principal diagnosis: acute on chronic diastolic heart failure Interval history: Patient says he is almost back to his baseline denies much shortness of breath not much cough or sputum production denies any fever or chills. Patient does not have any acute events overnight tolerated the BiPAP well. Objective PUL Vital signs: Last Vital Signs Temp 97.9 F 04/08/18 07:39 Pulse 58 04/08/18 07:39 Resp 16 04/08/18 07:39 BP 126/68 04/08/18 07:39 Pulse Ox 99 04/08/18 07:39 Auscultation: bilateral: rales (scattered rales ) Extremities: edema Results - Laboratory Findings CBC and BMP: 04/07/18 01:02 04/07/18 01:02 PT/INR, D-dimer PT 12.0 Seconds (9.4-12.1) 04/07/18 01:02 D-Dimer 517 ng/mLFEU (0-500) H 04/06/18 16:15 Abnormal lab findings: Abnormal lab results RBC 4.05 M/mcL (4.19-5.50) L 04/07/18 01:02 Hgb 11.6 g/dL (12.9-16.9) L 04/07/18 01:02 MCHC 29.9 g/dL (31.6-35.5) L 04/07/18 01:02 Immature Plt Fraction 6.7 % (1.1-6.1) H 04/07/18 01:02 D-Dimer 517 ng/mLFEU (0-500) H 04/06/18 16:15 Chloride 96 mEq/L (98-107) L 04/07/18 01:02 Carbon Dioxide 42 mEq/L (23-29) H* 04/07/18 01:02 Glucose 160 mg/dL (70-105) H 04/07/18 01:02 Serum Total Protein 6.2 g/dL (6.4-8.9) L 04/07/18 01:02 - Microbiology Findings Microbiology Findings: Microbiology, Last 48 Hours 04/07/18 00:59 Blood Culture - Preliminary Peripheral Venipuncture Culture is incubating and being continuously monitored for growth. Final report to follow. 04/07/18 00:55 Blood Culture - Preliminary Peripheral Venipuncture Culture is incubating and being continuously monitored for growth. Final report to follow. - Clinical Findings Intake & Output: Intake & Output 04/07/18 04/07/18 04/08/18 15:59 23:59 07:59 Intake Total 420 / 420 Output Total 300 / 300 370 / 370 Balance -300 / -300 50 / 50 Weight 149.4 kg Consult Discharge Plan - Plan Referrals: NONE,PCP [Primary Care Provider] - Zacarias Londono MD [Partnered Physician] - (Your offices will call you with an appointment time and date. ) Prescriptions: Levofloxacin [Levaquin] 750 mg PO DAILY #7 tablet
[2018-04-08] MEDS: *HR* HYDROcodone/Acet 5/325 mg TABLET PO PRN (09:35)
[2018-04-08] MEDS: predniSONE 20 MG TABLET PO SCH (09:35)
[2018-04-08] MEDS: Furosemide 40 MG/4 ML VIAL IVP SCH (09:36)
--- NOTE | 2018-04-08 10:49 | Discharge Summary ---
- NOTES TO OUTPATIENT PROVIDER Notes to Outpatient Provider: follow up with pulmary team. follow BMP for bicarb and elctrolytes. follow glucose levels A1 cwas 4.9% on 04/07- is mildly hyperglycemic as he is on steroids Orders not resulted at time of discharge: Pending orders 04/06/18 23:59 Culture,Blood [BC] Stat Culture,Sputum with Gram Stain [RM] Routine 04/07/18 06:00 ECG 12 lead ECG [ECG] AM 0600 04/08/18 12:00 Vancomycin,Trough Timed Date of Encounter: 04/08/18 Time of Encounter: 10:47 - Discharge Diagnosis (1) Acute and chronic respiratory failure with hypoxia Priority: Primary Status: Acute (2) Multifocal pneumonia Priority: Secondary Status: Acute (3) Obesity hypoventilation syndrome Priority: Secondary Status: Chronic (4) Chest pain Priority: Secondary Status: Acute Qualifiers: Chest pain type: other chest pain Qualified Code(s): R07.89 - Other chest pain; R07.8 - Other chest pain (5) DVT prophylaxis Priority: Secondary Status: Acute Hospital course: Mr. Dumas is a 62 year old male who presents with a one day history of chest pain and several day history of worsening, dyspnea, cough, productive sputum, and subjective fevers. He was recently discharged from the hospital after complicated for COPD exacerbation, acute on chronic respiratory failure, and suspicion for pneumonia. He was intubated and mechanically ventilated in ICU during the hospital stay. He finished his antibiotics, tapering steroids, and aerosols with slight improvement and then followed with significant decompensation after his medications were discontinued. He then developed chest pain over last 24 hours. Workup in ER revealed a CT angiogram of the chest, which was negative for PE. However, he had significant dilated pulmonary arteries and parenchymal disease suggesting need for invasive studies such as bronchoscopy. Patient was therefore admitted to hospitalist service. MRSA screen was positive for the patietn. pulmonology was consulted and recommended OP bronchoscopy for the patient. also it was recommended to send uma home on slow steroid taper of 21 days along with levaquin for 7 days. he was also told to resume his home PO dose of lasix and stay compliant to his medications and Bipap I discussed with CM and SW and patient does have Home oxygen adn bipap at home- he was counseled extensively by myself and pulmonology team to stay compliant to his BIPAP and medications 6 minute walk test performed with home oxygen dose of 3-4 L and patient saturated well as per nursing staff reports This is my first encounter patient on 04/08- i discussed the case with pulmonol ogist who has cleared patient for discharge and follow up as OP he was counseled extensively on nutrition and weight loss CTPA IMPRESSION: Negative for acute pulmonary embolism. Advanced chronic parenchymal lung disease, slowly progressive since 2010 and incompletely characterized on this exam. Differential considerations would include nonspecific interstitial pneumonia (NSIP)/organizing pneumonia (OP), connective tissue disease related, drug toxicity or idiopathic. Recommend pulmonary medicine referral if the patient is not already being followed by a wax machine operator. Enlarged main pulmonary artery suggests pulmonary hypertension, presumably at least in part related to underlying parenchymal lung disease. Mild cardiomegaly. Ct A/P IMPRESSION: Scattered airspace disease at the lung bases. Please see chest CT report. Diffuse colonic distention, greatest in the sigmoid, similar to prior. TTE:Impressions: Technically sub-optimal due to poor echocardiographic windows. LVEF 65-70%. Normal LV chamber size, wall thickness and systolic function. Indeterminate diastolic function. RV not well visualized, non-diagnostic for RV size or function. No significant valvular dysfunction. Unable to estimate RVSP due to lack of TR jet. Non-diagnostic for size of aortic root and ascending aorta. If clinical Discharge discussed with: patient, nurse, social work, case management, pre owned sales consultant - Time Spent with Patient Total time spent providing and/or coordinating discharge services: Greater than 30 minutes (40) - Discharge Medications Prescriptions: Levofloxacin [Levaquin] 750 mg PO DAILY #7 tablet Home Medications: Atorvastatin [Lipitor] 40 mg PO HS 07/29/15 [History] Sertraline [Zoloft] 200 mg PO QAM 07/29/15 [History] Albuterol Sulfate [Albuterol Inhaler] 2 puff IH Q4HR PRN 10/25/15 [History] Fluticasone Propionate Nasal [Flonase] 2 spray NS DAILY 7 Days bottle 11/10/15 [Rx] Omeprazole [PriLOSEC] 40 mg PO DAILY 01/10/17 [History] Oxygen 1 each .ROUTE AD 01/10/17 [History] Folic Acid 1 mg PO DAILY tab 01/18/17 [Rx] Nitroglycerin [Nitrostat] 0.4 mg SL Q5M PRN 01/20/17 [History] Montelukast [Singulair] 10 mg PO DAILY 01/07/18 [History] Ranitidine HCl [Acid Satellite Communications Engineer] 150 mg PO BID 01/07/18 [History] Guaifenesin [Mucinex] 600 mg PO BID 01/14/18 [History] Polyethylene Glycol 3350 [MiraLAX] 17 gm PO DAILY 01/14/18 [History] Furosemide [Lasix] 40 mg PO BID 02/16/18 [History] Potassium Chloride 20 meq PO BIDWM 02/16/18 [History] HYDROcodone/Acet 7.5/325 mg [[place] 7.5-325 mg] 1 tab PO Q8H PRN 02/17/18 [History] Fluticasone Propionate [Flovent Hfa] 88 mcg IH BID 03/20/18 [History] Gabapentin [Neurontin] 800 mg PO TID 03/20/18 [History] Metoprolol Succinate [Toprol Xl] 100 mg PO DAILY 03/20/18 [History] Budesonide/Formoterol 160/4.5 [Symbicort 160/4.5] 2 puff IH BIDR inh 03/27/18 [Rx] Cyanocobalamin (B-12) [Vitamin B12] 1,000 mcg PO DAILY #90 tablet 03/27/18 [Rx] Ergocalciferol (VITAMIN D2) [Drisdol (50,000 Unit)] 50,000 unit PO QWEEK #15 capsule 03/27/18 [Rx] Ipratropium/Albuterol Neb [Duoneb] 3 ml IH Q8H 90 Days #270 inhsol 03/27/18 [Rx] Thiamine (B-1) [Vitamin B-1] 100 mg PO DAILY tablet 03/27/18 [Rx] Levofloxacin [Levaquin] 750 mg PO DAILY #7 tablet 04/08/18 [Rx] Allergies/Adverse Reactions: Allergy/AdvReac Type Severity Reaction Status Date / Time azithromycin [From Zithromax] Allergy Rash Verified 08/23/17 09:52 Date of admission: 04/07/18 00:42 Primary care physician: PCP NONE Consults: 04/06/18 23:59 Consult to Pulmonology [CONS] Routine Consulting Provider: Pulm Crit Care & Sleep Sia Reason for Consult: Possible need for bronchoscopy per radiology Call Completed: No 04/07/18 15:38 Consult to Pulmonology [CONS] Stat Consulting Provider: Pulm Crit Care [facility] Sleep Wingo Reason for Consult: respiratory failure w hypoxemia, Time Notified: 15:40 Call Completed: Yes 04/07/18 15:43 dietary consult [Consult to Nutrition] [CONS] Routine Comment: Consulting Provider: NUTRITION Reason for Dietary Consult: Diet Education 04/07/18 18:11 Consult to Lacquer Maker [CONS] Routine Reason for SW Consult: to ensure has bipap upon discharge this week in his home. - Constitutional Vitals: Temp Pulse Resp BP Pulse Ox 97.9 F 58 16 126/68 99 04/08/18 07:39 04/08/18 07:39 04/08/18 07:39 04/08/18 07:39 04/08/18 07:39 General appearance: Present: cooperative, mild distress, A&O X 3, pleasant, answers questions appropriately Exam: General: Patient is alert, oriented, no acute distress, speaking in full sentences, saturating well on nasal cannula, morbidly obese Head: atraumatic, normocephalic, Eye: normal appearance, PERRL, no scleral icterus, no conjunctival injection ENT: mucous membranes moist, normal external ear exam Neck: normal inspection, trachea midline, full ROM, no carotid bruits Chest: normal inspection, symmetric chest rise Respiratory: Decreased breath sounds secondary to body habitus, Good respiratory effort. Bilateral breath sounds are clear without wheezing, occasional crackles Cardiovascular: Distant heart sounds secondary to body habitus, Regular rate and rhythm. s1 and s2 No clicks, rubs, gallops, or murmors. Abdomen: Bowel sounds present normoactive x-4 quadrants. Abdomen is soft, nondistended. no Epigastric tenderness. No guarding or rebound. No organomegaly noted, obese musculoskeletal: Spontaneously moving all extremities. +1 edema, no calf tenderness Skin: warm, dry, intact. Neuro: Alert and oriented x4. Sensation light touch intact. Cranial nerves 2- 12 is intact. No focal deficit Psych: Patient's affect is normal - Patient Status Disposition: Home, Self-Care Condition: Fair Functional capacity at discharge: uses cane/walker Overall status at discharge: patient is progressing back to baseline - Discharge Instructions Follow Up With: NONE,PCP [Primary Care Provider] - Zacarias Londono MD [Partnered Physician] - (Your offices will call you with an appointment time and date. ) Forms: ED Satisfaction Letter - Diet and Activity Activity: as per physical therapy, increase activity as tolerated Diet: advance to your usual diet, low salt diet
[2018-04-08 10:54] VITALS: BP 120/68
[2018-04-08] MEDS ORDERED: Nitroglycerin 0.4 MG TAB.SUBL SL PRN (12:45)
--- NOTE | 2018-04-08 15:08 | Physician Discharge Referral ---
Home Health/Hosp Referral Info Transfer to: Home Health Provider in Charge Post Discharge: PCP - Diagnosis (1) Acute and chronic respiratory failure with hypoxia Priority: Primary Status: Acute (2) Multifocal pneumonia Priority: Secondary Status: Acute (3) Obesity hypoventilation syndrome Priority: Secondary Status: Chronic (4) Chest pain Priority: Secondary Status: Acute (5) DVT prophylaxis Priority: Secondary Status: Acute - Respiratory Orders Oxygen / L per min (3-4) Smoking Cessation: Smoking cessation has been advised. For more information, call the [place] [employer] Quit Line at 1-005-DPBM-NOW. - Diet/Nutrition Diet/Nutrition Orders: Cardiac - Activity Activity Orders: Ambulate - Services Needed Following services are medically necessary services: Nursing, Home Health Aide, Physical Therapy - Transfer Medications Prescriptions: Levofloxacin [Levaquin] 750 mg PO DAILY #7 tablet Home Medications: Atorvastatin [Lipitor] 40 mg PO HS 07/29/15 [History] Sertraline [Zoloft] 200 mg PO QAM 07/29/15 [History] Albuterol Sulfate [Albuterol Inhaler] 2 puff IH Q4HR PRN 10/25/15 [History] Fluticasone Propionate Nasal [Flonase] 2 spray NS DAILY 7 Days bottle 11/10/15 [Rx] Omeprazole [PriLOSEC] 40 mg PO DAILY 01/10/17 [History] Oxygen 1 each .ROUTE AD 01/10/17 [History] Folic Acid 1 mg PO DAILY tab 01/18/17 [Rx] Nitroglycerin [Nitrostat] 0.4 mg SL Q5M PRN 01/20/17 [History] Montelukast [Singulair] 10 mg PO DAILY 01/07/18 [History] Ranitidine HCl [Acid Diesel Instructor] 150 mg PO BID 01/07/18 [History] Guaifenesin [Mucinex] 600 mg PO BID 01/14/18 [History] Polyethylene Glycol 3350 [MiraLAX] 17 gm PO DAILY 01/14/18 [History] Furosemide [Lasix] 40 mg PO BID 02/16/18 [History] Potassium Chloride 20 meq PO BIDWM 02/16/18 [History] HYDROcodone/Acet 7.5/325 mg [[place] 7.5-325 mg] 1 tab PO Q8H PRN 02/17/18 [History] Fluticasone Propionate [Flovent Hfa] 88 mcg IH BID 03/20/18 [History] Gabapentin [Neurontin] 800 mg PO TID 03/20/18 [History] Metoprolol Succinate [Toprol Xl] 100 mg PO DAILY 03/20/18 [History] Budesonide/Formoterol 160/4.5 [Symbicort 160/4.5] 2 puff IH BIDR inh 03/27/18 [Rx] Cyanocobalamin (B-12) [Vitamin B12] 1,000 mcg PO DAILY #90 tablet 03/27/18 [Rx] Ergocalciferol (VITAMIN D2) [Drisdol (50,000 Unit)] 50,000 unit PO QWEEK #15 capsule 03/27/18 [Rx] Ipratropium/Albuterol Neb [Duoneb] 3 ml IH Q8H 90 Days #270 inhsol 03/27/18 [Rx] Thiamine (B-1) [Vitamin B-1] 100 mg PO DAILY tablet 03/27/18 [Rx] Levofloxacin [Levaquin] 750 mg PO DAILY #7 tablet 04/08/18 [Rx] Allergies/Adverse Reactions: Allergy/AdvReac Type Severity Reaction Status Date / Time azithromycin [From Zithromax] Allergy Rash Verified 08/23/17 09:52 Certification: Further, I certify that my clinical findings support that this patient is homebound (i.e. absences from home require considerable and taxing effort and are for medical reasons or taoism services or infrequently or short duration when for other reasons) because: Homebound Reason: Patient requires assistance of a person or device to safely leave home Attestation: My signature below is to certify that this patient is under my care and that I, or nurse practitioner, or a physician's assistant account executive working with me, has a [id number] encounter with this patient.
[2018-04-08] MEDS ORDERED: Famotidine 20 MG TABLET PO SCH (16:30)
[2018-04-08] MEDS ORDERED: Budesonide/Formoterol 160/4.5 1 PUFF INH IH SCH (22:00)
[2018-04-09] MEDS ORDERED: Fluticasone Propionate Nasal 50 MCG/SPRAY BOTTLE NS SCH (09:00)
[2018-04-09] MEDS ORDERED: Thiamine (B-1) 100 MG TABLET PO SCH (09:00)
[2018-04-09] MEDS ORDERED: Cyanocobalamin (B-12) 1,000 MCG TABLET PO SCH (09:00)
[2018-04-09] MEDS ORDERED: Folic Acid 1 MG TABLET PO SCH (09:00)
[2018-04-09] MEDS ORDERED: Metoprolol XL (24 HR) Succ 50 MG TAB.ER.24H PO SCH (09:00)
[2018-04-09] MEDS ORDERED: Cholecalciferol (D-3) 1,000 UNIT TABLET PO SCH (09:00)
== END 2018-04-08 14:59 | disposition home or self-care (01) | DRG 139 ==
LOC: 3BNU 15:47 → EMEROOARM 15:47 → 3BNU 21:33
PROVIDERS: ADMIT Family Medicine; ATTEND Family Medicine

== ENCOUNTER 2018-05-06 19:31 | Inpatient (IN) ==
[2018-05-06] MEDS ORDERED: methylPREDNISolone 125 MG/2 ML VIAL IVP ONE (19:38)
[2018-05-06] MEDS ORDERED: Ipratropium/Albuterol Neb 3 ML IH ONE (19:38)
[2018-05-06] MEDS ORDERED: Piperacillin/Tazobactam 3.375 GM in Water for inj. (sterile) 20 ML 20 ML IVP ONE (19:50)
--- NOTE | 2018-05-06 19:55 | Emergency Department Note ---
Disposition Clinical Impression: Respiratory distress, COPD exacerbation Pneumonia Qualifiers: Pneumonia type: due to unspecified organism Laterality: unspecified laterality Lung location: unspecified part of lung Qualified Code(s): J18.9 - Pneumonia, unspecified organism Disposition: Admitted As Inpatient Condition: Good Time of Disposition: 21:25 SOB HPI - General Chief Complaint: ED Shortness of Breath/Dyspnea Stated Complaint: SOB Time Seen by Provider: 05/06/18 19:37 Source: patient, EMS Mode of arrival: EMS Limitations: physical limitation Nursing Notes Reviewed: Yes Vital Signs Reviewed: Yes - History of Present Illness 63-year-old male with a history of COPD, borderline diabetes, recent hospitalization requiring intubation presents for evaluation of shortness of breath. Patient states he has had source of breath for the past week that worsened today. Patient also noted intermittent chest pain. Noted a nonproductive cough. No fevers. Patient's typically 3 L is cannula at home. Patient presents via EMS. Denies any abdominal pain. No nausea vomiting. - Related Data Home Medications Medication Instructions Recorded Confirmed RX: Atorvastatin [Lipitor] 40 mg PO HS 07/29/15 05/06/18 RX: Sertraline [Zoloft] 200 mg PO QAM 07/29/15 05/06/18 RX: Albuterol Sulfate [Albuterol 2 puff IH Q4HR PRN 10/25/15 05/06/18 Inhaler] RX: Omeprazole [PriLOSEC] 40 mg PO DAILY 01/10/17 05/06/18 RX: Oxygen 1 each .ROUTE AD 01/10/17 05/06/18 RX: Nitroglycerin [Nitrostat] 0.4 mg SL Q5M PRN 01/20/17 05/06/18 RX: Montelukast [Singulair] 10 mg PO DAILY 01/07/18 05/06/18 RX: Ranitidine HCl [Acid [employer] Operations Manager] 150 mg PO BID 01/07/18 05/06/18 RX: Guaifenesin [Mucinex] 600 mg PO BID 01/14/18 05/06/18 RX: Polyethylene Glycol 3350 17 gm PO DAILY 01/14/18 05/06/18 [MiraLAX] RX: Furosemide [Lasix] 40 mg PO BID 02/16/18 05/06/18 RX: Potassium Chloride 20 meq PO BIDWM 02/16/18 05/06/18 RX: HYDROcodone/Acet 7.5/325 mg 1 tab PO Q8H PRN 02/17/18 05/06/18 [[place] 7.5-325 mg] RX: Fluticasone Propionate 88 mcg IH BID 03/20/18 05/06/18 [Flovent Hfa] RX: Gabapentin [Neurontin] 800 mg PO TID 03/20/18 05/06/18 RX: Metoprolol Succinate [Toprol 100 mg PO DAILY 03/20/18 05/06/18 Xl] Previous Rx's Medication Instructions Recorded RX: Fluticasone Propionate Nasal 2 spray NS DAILY 7 Days bottle 11/10/15 [Flonase] RX: Folic Acid 1 mg PO DAILY tab 01/18/17 RX: Budesonide/Formoterol 160/4.5 2 puff IH BIDR inh 03/27/18 [Symbicort 160/4.5] RX: Cyanocobalamin (B-12) [Vitamin 1,000 mcg PO DAILY #90 tablet 03/27/18 B12] RX: Ergocalciferol (VITAMIN D2) 50,000 unit PO QWEEK #15 capsule 03/27/18 [Drisdol (50,000 Unit)] RX: Ipratropium/Albuterol Neb 3 ml IH Q8H 90 Days #270 inhsol 03/27/18 [Duoneb] Allergies Allergy/AdvReac Type Severity Reaction Status Date / Time azithromycin [From Zithromax] Allergy Rash Verified 08/23/17 09:52 All systems ED: reviewed and negative except as stated. Constitutional: Denies: fever Cardiovascular: Reports: chest pain Respiratory: Reports: cough, dyspnea, sputum production Gastrointestinal: Denies: abdominal pain, nausea, vomiting, diarrhea Past Medical History - Past Medical History Source: patient Medical history: Reports: asthma, CHF, COPD, hyperlipidemia, hypertension Surgical history: Reports: herniorrhaphy Psychiatric history: Reports: no psych history - Social History Smoking Status: Never smoker Smokeless Tobacco Status: No Alcohol use: Reports: none Drug use: Reports: none Physical Exam - General Limitations: physical limitation General appearance: alert - Head Head exam: atraumatic, normocephalic, normal inspection - Eye Eye exam: Present: normal appearance, PERRL, EOMI - ENT ENT exam: normal exam - Neck Neck exam: Present: normal inspection - Chest Chest inspection: Present: normal inspection, symmetric chest wall rise - Respiratory Respiratory exam: Present: wheezes (Scattered expiratory wheeze), accessory muscle use, prolonged expiratory phase - Cardiovascular Cardiovascular exam: Present: normal rhythm, tachycardia. Absent: systolic murmur - Abdominal Exam Abdominal exam: Present: soft, Non-Tender - Extremities Exam Extremities exam: Present: normal inspection, pedal edema (2+) - Expanded Lower Extremity Exam Neurovascular/Tendon exam: Present: normal capillary refill - Back Exam Back exam: Present: normal inspection - Neurological Exam Neurological exam: Present: alert, oriented X3 - Skin Skin exam: Present: warm, dry, intact, normal color Course Course Narrative: Patient seen and examined. Patient had a recent admission with a CTA of the chest which showed multifocal pneumonia. Patient also had negative venous Dopplers of the lower extremity. Echo showed EF with normal ejection fraction. Patient does appear to be in moderate distress. BiPAP aerosols and steroids initiated upon arrival. Concerns initially again for non-resolving pneumonia. She does meet SIRS criteria and will be treated a septic. Disposition admission. - Reevaluation(s) Reevaluation #1: Patient has a recent echo of 65-70% Time: 20:25 Reevaluation #2: Patient seen and examined. Patient's resting on BiPAP 16/6 and 35%. Lung exam reveals better aeration after the aerosols. Time: 20:35 Reevaluation #3: Patient's resting comfortably on BiPAP. Time: 21:36 Vital Signs Temperature 98.0 F 05/06/18 19:38 Pulse Rate 122 05/06/18 19:38 Respiratory Rate 24 05/06/18 19:38 Blood Pressure 118/73 05/06/18 19:38 O2 Sat by Pulse Oximetry 93 05/06/18 19:38 Temperature 98.0 F 05/06/18 19:38 Pulse Rate 90 05/06/18 20:51 Respiratory Rate 22 05/06/18 20:51 Blood Pressure 118/73 05/06/18 19:38 O2 Sat by Pulse Oximetry 100 05/06/18 20:51 Oxygen Delivery Oxygen Delivery Bipap Shortness of Breath/Dyspnea - [facility] Narrative Medical decision making narrative: Patient presented for concerns of respiratory distress. Does have a recent hospitalization with admission in ICU intubation. Patient had a pulmonary consult. Patient presented with increased work of breathing immediately placed on BiPAP. Patient did have expiratory wheeze and a history of COPD with increased nausea requirement. Patient was given aerosols nebs. Patient was also given a small fluid bolus given her unknown cardiopulmonary function. Patient does have recent CTA which shows no evidence of PE however multifocal disease. Patient will be treated for hospital associated pneumonia. Patient was started on Vanco and Zosyn. Patient's troponin was negative. Patient's been stable in the ED without any acute decompensation. - Lab Data Lab results reviewed: Yes I reviewed the patient's lab results. Result diagrams: 05/07/18 00:18 05/07/18 00:18 Lab Results 05/06/18 05/06/18 05/06/18 Range/Units 19:38 19:38 19:38 WBC (4.3-11.1) K/mcL RBC (4.19-5.50) M/mcL Hgb (12.9-16.9) g/dL Hct (37.5-50.1) % MCV (83.0-100.0) fL MCH (28.0-33.3) pg MCHC (31.6-35.5) g/dL RDW (11.5-14.5) % Plt Count (140-400) K/mcL MPV (9.4-12.4) fL Immature Gran % (0-4) % Seg Neutrophils % % Lymphocytes % % Monocytes % % Eosinophils % % Basophils % % Neutrophils # (1.6-8.9) K/mcL Lymphocytes # (0.6-4.6) K/mcL Monocytes # (0.0-1.3) K/mcL Eosinophils # (0.0-0.6) K/mcL Basophils # (0.0-0.2) K/mcL Sample Site ABG pH (7.32-7.45) pH Units ABG pCO2 (35-45) mmHg ABG pO2 (85-104) mmHg ABG HCO3 (21-27) mEq/L ABG Total CO2 (20-26) mEq/L ABG O2 Saturation (95-98) % ABG Base Excess (-2 to 3) mEq/L Veto Test O2 Delivery Device Inspired O2 (1-15=lpm [id number]=%) Sodium 138 (136-145) mEq/L Potassium 3.5 (3.5-5.1) mEq/L Chloride 89 L (98-107) mEq/L Carbon Dioxide 42 H* (23-29) mEq/L BUN 19 (8-23) mg/dL Creatinine 1.37 H (0.70-1.30) mg/dL Est GFR ( Amer) > 60 (> 60) Est GFR (Non-Af Amer) 52 L (> 60) BUN/Creatinine Ratio 14 (6-26) Glucose 185 H (70-105) mg/dL Calculated Osmolality 293 (280-300) Lactic Acid 2.7 H (0.5-2.2) mmol/L Calcium 9.0 (8.6-10.3) mg/dL Troponin I < 0.03 (< 0.04) ng/mL B-Natriuretic Peptide 104 H (Less than 100) pg/mL 05/06/18 05/06/18 Range/Units 19:55 20:14 WBC 5.9 (4.3-11.1) K/mcL RBC 4.82 (4.19-5.50) M/mcL Hgb 13.7 (12.9-16.9) g/dL Hct 45.3 (37.5-50.1) % MCV 94.0 (83.0-100.0) fL MCH 28.4 (28.0-33.3) pg MCHC 30.2 L (31.6-35.5) g/dL RDW 13.2 (11.5-14.5) % Plt Count 119 L (140-400) K/mcL MPV 11.4 (9.4-12.4) fL Immature Gran % 0.2 (0-4) % Seg Neutrophils % 57.3 % Lymphocytes % 28.5 % Monocytes % 7.6 % Eosinophils % 5.9 % Basophils % 0.5 % Neutrophils # 3.4 (1.6-8.9) K/mcL Lymphocytes # 1.7 (0.6-4.6) K/mcL Monocytes # 0.5 (0.0-1.3) K/mcL Eosinophils # 0.4 (0.0-0.6) K/mcL Basophils # 0.0 (0.0-0.2) K/mcL Sample Site L Radial ABG pH 7.35 (7.32-7.45) pH Units ABG pCO2 79 H* (35-45) mmHg ABG pO2 69 L (85-104) mmHg ABG HCO3 44 H (21-27) mEq/L ABG Total CO2 46 H (20-26) mEq/L ABG O2 Saturation 91 L (95-98) % ABG Base Excess 14 H (-2 to 3) mEq/L Veto Test Positive O2 Delivery Device [employer]ero[employer] Inspired O2 50.0 (1-15=lpm [id number]=%) Sodium (136-145) mEq/L Potassium (3.5-5.1) mEq/L Chloride (98-107) mEq/L Carbon Dioxide (23-29) mEq/L BUN (8-23) mg/dL Creatinine (0.70-1.30) mg/dL Est GFR ( Amer) (> 60) Est GFR (Non-Af Amer) (> 60) BUN/Creatinine Ratio (6-26) Glucose (70-105) mg/dL Calculated Osmolality (280-300) Lactic Acid (0.5-2.2) mmol/L Calcium (8.6-10.3) mg/dL Troponin I (< 0.04) ng/mL B-Natriuretic Peptide (Less than 100) pg/mL - Radiology Data Radiology results reviewed: Yes I reviewed the patient's radiology results. Chest X-Ray 05/06/18 19:38 IMPRESSION: Multifocal airspace disease with right pleural effusion, grossly similar to the prior examination. D/ / Daryl Hooks MD / Daryl Hooks MD Interpreting Provider: Daryl Hooks MD - EKG Data EKG attestation: Yes I reviewed and interpreted this EKG. EKG shows normal: Reports: sinus rhythm Rate: Reports: normal Rhythm: Reports: NSR [place]/QRS: Reports: normal Interpretation: Reports: no acute changes, nonspecific ST-T wave changes Critical Care Time Critical Care Time: Yes Total Critical Care Time: 35 Attestation: Critical care time was exclusive of separately billable procedures and treating other patients. Critical care was necessary to treat or prevent imminent or life-threatening deterioration. Critical care was time spent personally by me on the following activities: development of treatment plan with patient and/or surrogate as well as nursing, discussions with consultants, evaluation of patient's response to treatment, examination of patient, obtaining history from patient or surrogate, ordering and performing treatments and interventions, ordering and review of laboratory studies, ordering and review of radiographic studies, pulse oximetry and re-evaluation of patient's condition. Rand - Rand Situation: Demographics Background: Presenting Complaint Assessment: Vital Signs, Course and respsone to treatment Recommendation: Barrier(s) to disposition, Recommendation based on pending studies, treatments, or consults Rand Report Given to: Hospitalist Rand Repor Time: 21:24 Attestation Statement - Attestation Attestation: Resident Attestation: I examined this patient and my medical decision making was reviewed with the Resident Physician. I agree with the documented findings, disposition and treatment plan as described except to the extent set forth below. We independently had [id number] contact with the patient. Patient significant history of COPD with worsening symptoms over the last week. Associated cough and mucus production. No specific fevers. Recent admission for multifocal pneumonia which required intubation. Worse 3-4 L of oxygen at home and is supposed to use BiPAP. During patient's admission he did undergo extensive education which likely from concern for noncompliance. Patient is to In hypoxic on presentation. Patient received breathing treatments via EMS but arrives with no oxygen in place. Pulse ox of 78%. Patient will be placed on BiPAP received steroids as well as 3 breathing treatments and reevaluation. Concern for multifocal pneumonia approximately one month ago. Will receive blood cultures as well and has broad-spectrum antibiotics. Diffuse wheezing and rhonchi, moderate respiratory distress Notes from chart review: Admission on 04/08 discharge summary of multifocal pneumonia. During this visit he was mechanically ventilated in the ICU during his stay. He finished his antibiotics and tapered steroids with slight improvement. MRSA screen was positive. Pulmonary Deyanira was consulted. Patient had a slow steroid taper over 21 days which is approximating an end date of earlier in the week. He was told to continue Lasix and stay compliant with home BiPAP. He had a CTA during this admission which was negative for PE. EF was 65-70% without visualization of right ventricle.
[2018-05-06] MEDS ORDERED: 0.9 % Sodium Chloride 500 ML IVC ONE (19:57)
[2018-05-06 20:14] LABS: Basophils % 0.5 %; Eosinophils # 0.4 K/mcL (0.0-0.6); Eosinophils % 5.9 %; Hematocrit 45.3 % (37.5-50.1); Hemoglobin 13.7 g/dL (12.9-16.9); Immature Granulocytes % 0.2 % (0-4); Lymphocytes # 1.7 K/mcL (0.6-4.6); Lymphocytes % 28.5 %; Mean Corpuscular HGB Conc 30.2 g/dL (31.6-35.5); Mean Corpuscular Hemoglobin 28.4 pg (28.0-33.3); Mean Platelet Volume 11.4 fL (9.4-12.4); Monocytes # 0.5 K/mcL (0.0-1.3); Monocytes % 7.6 %; Neutrophils # 3.4 K/mcL (1.6-8.9); Platelet Count 119 K/mcL (140-400); Red Blood Count 4.82 M/mcL (4.19-5.50); Red Cell Distribution Width 13.2 % (11.5-14.5); Segmented Neutrophils % 57.3 %
[2018-05-06 20:17] LABS: ABG Base Excess 14 mEq/L (-2 to 3); ABG HCO3 44 mEq/L (21-27); ABG Oxygen Saturation 91 % (95-98); ABG PCO2 79 mmHg (35-45); ABG PH 7.35 pH Units (7.32-7.45); ABG PO2 69 mmHg (85-104); ABG TCO2 46 mEq/L (20-26)
[2018-05-06] MEDS ORDERED: *HR* FentaNYL (PF) 100 MCG/2 ML VIAL IVP ONE (20:22)
[2018-05-06 21:04] LABS: Troponin I < 0.03 ng/mL (< 0.04)
[2018-05-06 21:07] LABS: BUN/Creatinine Ratio 14 (6-26); Blood Urea Nitrogen 19 mg/dL (8-23); Carbon Dioxide 42 mEq/L (23-29); Chloride 89 mEq/L (98-107); Glucose 185 mg/dL (70-105); Osmolality,Calculated 293 (280-300); Potassium 3.5 mEq/L (3.5-5.1); Sodium 138 mEq/L (136-145); eGFR For Non-African Americans 52 (> 60)
[2018-05-06] MEDS ORDERED: Ondansetron 4 MG/2 ML VIAL IVP PRN (21:46)
[2018-05-06] MEDS ORDERED: Dextrose Gel 15 GM/37.5 ML TUBE PO PRN ×2 (21:48)
[2018-05-06] MEDS ORDERED: D5% in Water 1,000 ML IVC PRN (21:48)
[2018-05-06] MEDS ORDERED: *HR* Dextrose 50 % in Water (Syg) 50 ML SYRINGE IVP PRN (21:48)
[2018-05-06] MEDS ORDERED: Acetaminophen 325 MG TABLET PO PRN (21:49)
[2018-05-06] MEDS ORDERED: Naloxone 0.4 MG/ML INJ IVP PRN (21:49)
[2018-05-06] MEDS ORDERED: Nitroglycerin 0.4 MG TAB.SUBL SL PRN (21:50)
--- NOTE | 2018-05-06 22:08 | Internal Med History&Physical ---
Date of Encounter: 05/06/18 Time of Encounter: 22:06 Internal Medicine - H&P: HPI Chief complaint: Shortness of breath Admitted From: Emergency Dept Plans for Post Hospital Care: Home History of present illness: Mr. Dumas is a 63 year old male with history of chronic respiratory failure on 3 L nasal cannula oxygen, COPD, hypertension, diastolic, borderline diabetes, chronic kidney disease stage III, depression who presented to the ED complaining of one week's worth of shortness of breath with a dry cough. He denies any fever or chills. Says the breathing has gotten so bad today that he decided to come in to get evaluated. The patient of note was recently admitted to our hospital for COPD exacerbation requiring intubation and ICU stay. In the ED there is no reported hypoxia but initially he was so tachypneic that they put him on 6 L nasal cannula oxygen and then they put him on BiPAP. He remained tachypneic and breathing reports to the 30s while I was evaluating him. He was also tachycardic initially in the 120s. Laboratory workup showed no leukocytosis. Showed creatinine of 1.37 and BUN of 19 which are mostly consistent with his previous numbers. Lactic acid came back elevated and he was given a 500 mL bolus and it normalized repeat. ABG showed pH of 7.35, PCO2 of 79, PO2 of 69. Chest x-ray showed findings of multifocal airspace disease. Patient was apparently significantly wheezing in the ED and given IV steroids. He was also given IV vancomycin and Zosyn prior to my evaluation. He denies any headache, blurry vision, dizziness, chest pain, abdominal pain, diarrhea, constipation, urinary symptoms, or neurological symptoms. Past Med Surg Social Fam HX - Past Medical History Medical history: asthma, CHF, COPD, hyperlipidemia, hypertension Additional medical history: obesity hypoventilation syndrome Psychiatric history: no psych history - Past Surgical History Surgical History: herniorrhaphy Additional surgical history: Hernia - Social History Smoking Status: Never smoker Smokeless Tobacco Status: No Alcohol use: none Drug use: none - Family History Mother Living Status: Hx Family Cardiac Disorders: Yes Hx Family Respiratory Disorders: No Hx Family Cancer: No Hx Family GI Disorders: No Hx Family Endocrine Disorder: No Hx Family Neuromuscular Disorders: No Hx Family Neurologic Disorders: No Hx Family HEENT Disorders: No Hx Family Autoimmune Disorders: No Father Living Status: Hx Family Cardiac Disorders: No Hx Family Respiratory Disorders: No Hx Family Cancer: No Hx Family GI Disorders: No Hx Family Endocrine Disorder: No Hx Family Neuromuscular Disorders: No (ALS) Hx Family Neurologic Disorders: No Hx Family HEENT Disorders: No Hx Family Autoimmune Disorders: No Internal Medicine - H&P: Meds Atorvastatin [Lipitor] 40 mg PO HS 07/29/15 [History] Sertraline [Zoloft] 200 mg PO QAM 07/29/15 [History] Albuterol Sulfate [Albuterol Inhaler] 2 puff IH Q4HR PRN 10/25/15 [History] Fluticasone Propionate Nasal [Flonase] 2 spray NS DAILY 7 Days bottle 11/10/15 [Rx] Omeprazole [PriLOSEC] 40 mg PO DAILY 01/10/17 [History] Oxygen 1 each .ROUTE AD 01/10/17 [History] Folic Acid 1 mg PO DAILY tab 01/18/17 [Rx] Nitroglycerin [Nitrostat] 0.4 mg SL Q5M PRN 01/20/17 [History] Montelukast [Singulair] 10 mg PO DAILY 01/07/18 [History] Ranitidine HCl [Acid [employer] P[employer] Supervisor] 150 mg PO BID 01/07/18 [History] Guaifenesin [Mucinex] 600 mg PO BID 01/14/18 [History] Polyethylene Glycol 3350 [MiraLAX] 17 gm PO DAILY 01/14/18 [History] Furosemide [Lasix] 40 mg PO BID 02/16/18 [History] Potassium Chloride 20 meq PO BIDWM 02/16/18 [History] HYDROcodone/Acet 7.5/325 mg [[place] 7.5-325 mg] 1 tab PO Q8H PRN 02/17/18 [History] Fluticasone Propionate [Flovent Hfa] 88 mcg IH BID 03/20/18 [History] Gabapentin [Neurontin] 800 mg PO TID 03/20/18 [History] Metoprolol Succinate [Toprol Xl] 100 mg PO DAILY 03/20/18 [History] Budesonide/Formoterol 160/4.5 [Symbicort 160/4.5] 2 puff IH BIDR inh 03/27/18 [Rx] Cyanocobalamin (B-12) [Vitamin B12] 1,000 mcg PO DAILY #90 tablet 03/27/18 [Rx] Ergocalciferol (VITAMIN D2) [Drisdol (50,000 Unit)] 50,000 unit PO QWEEK #15 capsule 03/27/18 [Rx] Ipratropium/Albuterol Neb [Duoneb] 3 ml IH Q8H 90 Days #270 inhsol 03/27/18 [Rx] Allergy/AdvReac Type Severity Reaction Status Date / Time azithromycin [From Zithromax] Allergy Rash Verified 08/23/17 09:52 All Systems PM: A 10-system review of systems was performed and is negative for pertinent findings except as documented above in the HPI. Review of systems: All systems reviewed are negative except for as mentioned above - Constitutional Vitals: Temp Pulse Resp BP Pulse Ox 98.0 F 90 22 118/73 100 05/06/18 19:38 05/06/18 20:51 05/06/18 20:51 05/06/18 19:38 05/06/18 20:51 Exam: GEN: NAD HEENT: AT, NC, No cyanosis, oral mucosa is moist, No JVD Lymphatics: No lymphadenoapthy Eyes: Extrocular muscles intact, anicteric CVS:RRR. S1, S2, No m/r/g RESP: Diminished with scattered rhonchi and wheezes posteriorly. ABD: Soft, NT, ND, +BS EXT: No edema, No rashes, 2+ DP NEURO: Nonfocal, CN II-XII intact, No focal motor or sensory deficits Psych: Cooperative, Not anxious or depressed Internal Med - H&P Results - Labs CBC & Chem 7: 05/06/18 19:55 05/06/18 19:38 Labs: Short CBC 05/06/18 Range/Units 19:55 WBC 5.9 (4.3-11.1) K/mcL Hgb 13.7 (12.9-16.9) g/dL Hct 45.3 (37.5-50.1) % Plt Count 119 L (140-400) K/mcL Neutrophils # 3.4 (1.6-8.9) K/mcL BMP 05/06/18 19:38 Sodium 138 Potassium 3.5 Chloride 89 L Carbon Dioxide 42 H* BUN 19 Creatinine 1.37 H Glucose 185 H Calcium 9.0 Cardiac Enzymes 05/06/18 Range/Units 19:38 Troponin I < 0.03 (< 0.04) ng/mL - ABG Interpretation ABG results: 05/06/18 20:14 ABG pH 7.35 ABG pCO2 79 H* ABG pO2 69 L ABG HCO3 44 H ABG Total CO2 46 H ABG O2 Saturation 91 L ABG Base Excess 14 H - Impressions ITS Impressions Chest X-Ray 05/06/18 19:38 IMPRESSION: Multifocal airspace disease with right pleural effusion, grossly similar to the prior examination. D/ / Daryl Hooks MD / Daryl Hooks MD Interpreting Provider: Daryl Hooks MD - Assessment and plan (1) Acute and chronic respiratory failure ([id number]) Current Visit: No Status: Acute Assessment and plan: Multifactorial with COPD exacerbation and healthcare associated pneumonia. Continue O2 support and treat underlying causes as below. Qualifiers: Respiratory failure complication: hypoxia and hypercapnia Qualified Code(s): J96.21 - Acute and chronic respiratory failure with hypoxia; J96.22 - Acute and chronic respiratory failure with hypercapnia (2) HCAP (healthcare-associated pneumonia) Current Visit: No Status: Acute Assessment and plan: We will place the patient on vancomycin and Zosyn. Check for urine strep and Legionella. Check respiratory panel. O2 support and nebs. Blood cultures collected in the ED. (3) COPD exacerbation Current Visit: Yes Status: Acute Assessment and plan: We will place the patient on IV steroids scheduled. Scheduled nebs. O2 support and wean as tolerated. May need a consult pulmonology saw the patient last time he was here while intubated in the ICU. (4) Lactic acidosis Current Visit: Yes Status: Acute Assessment and plan: Received 500 mL bolus in the ED of normal saline. This is resolved now. (5) Borderline diabetes mellitus Current Visit: Yes Status: Acute Assessment and plan: We will place the patient on insulin sliding scale. Accu-Cheks. Expect some elevation glucose with steroids (6) Depression Current Visit: Yes Status: Acute Assessment and plan: Continue home meds Qualifiers: Depression Type: unspecified Qualified Code(s): F32.9 - Major depressive disorder, single episode, unspecified (7) Diastolic CHF, chronic Current Visit: No Status: Chronic Assessment and plan: Chronic. No significant signs of volume overload. Continue home meds. He is on oral Lasix. (8) Essential hypertension Current Visit: No Status: Chronic Assessment and plan: Continue home meds (9) DVT prophylaxis Current Visit: No Status: Acute Assessment and plan: Heparin subcutaneous - Time Spent With Patient Total time spent is greater than 50% in coordination of care (as documented) at patient's floor/unit and/or counseling patient:
[2018-05-07] MEDS: methylPREDNISolone 125 MG/2 ML VIAL IVP SCH ×5 (00:28→23:30)
[2018-05-07 00:34] LABS: Basophils % 0.2 %; Eosinophils % 0.5 %; Hematocrit 42.8 % (37.5-50.1); Hemoglobin 12.9 g/dL (12.9-16.9); Immature Granulocytes % 0.2 % (0-4); Lymphocytes # 0.4 K/mcL (0.6-4.6); Lymphocytes % 5.4 %; Mean Corpuscular HGB Conc 30.1 g/dL (31.6-35.5); Mean Corpuscular Hemoglobin 28.2 pg (28.0-33.3); Mean Corpuscular Volume 93.4 fL (83.0-100.0); Mean Platelet Volume 11.6 fL (9.4-12.4); Monocytes # 0.2 K/mcL (0.0-1.3); Neutrophils # 7.5 K/mcL (1.6-8.9); Platelet Count 104 K/mcL (140-400); Red Blood Count 4.58 M/mcL (4.19-5.50); Red Cell Distribution Width 13.3 % (11.5-14.5); Segmented Neutrophils % 91.7 %
[2018-05-07] MEDS: Budesonide/Formoterol 160/4.5 1 PUFF INH IH SCH ×3 (00:51→21:51)
[2018-05-07 00:56] LABS: BUN/Creatinine Ratio 16 (6-26); Blood Urea Nitrogen 21 mg/dL (8-23); Calcium 8.7 mg/dL (8.6-10.3); Carbon Dioxide 40 mEq/L (23-29); Chloride 93 mEq/L (98-107); Glucose 101 mg/dL (70-105); Magnesium 2.4 mg/dL (1.6-2.6); Osmolality,Calculated 291 (280-300); Potassium 3.4 mEq/L (3.5-5.1); Sodium 139 mEq/L (136-145); eGFR For Non-African Americans 56 (> 60)
[2018-05-07] MEDS: *HR* HYDROcodone/Acet 7.5/325 mg TABLET PO PRN ×3 (02:21→21:03)
[2018-05-07] MEDS: *HR* Heparin 5,000 UNIT/ML VIAL SQ SCH ×3 (05:28→21:03)
[2018-05-07] MEDS: Beclomethasone 40mcg REDIHALER IH SCH ×2 (08:06→21:51)
[2018-05-07] MEDS: Piperacillin/Tazobactam 3.375 GM in 0.9 % Sodium Chloride Mini Bag 100 ML IVPB SCH ×3 (08:11→23:40)
[2018-05-07] MEDS: Cyanocobalamin (B-12) 1,000 MCG TABLET PO SCH (08:12)
[2018-05-07] MEDS: Insulin LISPRO 300 UNITS/3 ML VIAL SQ SCH ×4 (08:12→21:06)
[2018-05-07] MEDS: Gabapentin 400 MG CAPSULE PO SCH ×3 (08:12→21:04)
[2018-05-07] MEDS: Furosemide 20 MG TABLET PO SCH ×2 (08:12→17:30)
[2018-05-07] MEDS: Famotidine 20 MG TABLET PO SCH ×2 (08:12→17:30)
[2018-05-07] MEDS: Folic Acid 1 MG TABLET PO SCH (08:12)
[2018-05-07] MEDS: Metoprolol XL (24 HR) Succ 50 MG TAB.ER.24H PO SCH (08:32)
--- NOTE | 2018-05-07 09:01 | Internal Med Progress Note ---
Hospitalist Progress Note - Encounter Date of Encounter: 05/07/18 Time of Encounter: 08:41 - Subjective Interval History: Patient seen and examined this morning. No acute overnight events. Denies any fevers chills, nausea vomiting, some diarrhea about 2 episodes a day for past many days since she was discharged. Loose watery stools. Denies any abdominal pain. Breathing improved. Once treat. Was on BiPAP overnight. - Exam Vitals: Temp Pulse Resp BP Pulse Ox 97.9 F 50 16 121/71 90 05/07/18 07:04 05/07/18 07:04 05/07/18 08:10 05/07/18 07:04 05/07/18 08:10 Exam: General: In no acute distress. Conversant. Obese. Respiratory exam: scattered rhonchi and wheeze more on Lt. Distant breath sounds. no accessory muscle use, rales, rhonchi, wheezes Cardiovascular exam: Bradycardia, +S1, +S2. no murmur, gallop, rubs. GI/Abdominal exam: Non-tender, Non-distended, normal bowel sounds, soft, no peritoneal signs. Extremities exam: full ROM, 1+ pedal edema, warm, pulses palpable in b/l lower extremities. no calf tenderness Neurological exam: CN II-XII intact, AO X3, no focal deficits. no pronater drift, facial droop, speech deficit Skin exam: chronic dermatitis changes on both legs. - Assessment and Plan (1) HCAP (healthcare-associated pneumonia) Current Visit: No Status: Acute (2) Diastolic CHF, chronic Current Visit: No Status: Chronic (3) Essential hypertension Current Visit: No Status: Chronic (4) COPD exacerbation Current Visit: Yes Status: Acute (5) DVT prophylaxis Current Visit: No Status: Acute (6) Acute and chronic respiratory failure (hjjjm-qu-nhyryli) Current Visit: No Status: Acute (7) Borderline diabetes mellitus Current Visit: Yes Status: Acute (8) Lactic acidosis Current Visit: Yes Status: Acute (9) Depression Current Visit: Yes Status: Acute - Summary of Assessment and Plan Summary of Assessment and Plan: Bradycardia - On beta ulysses at home. - Asymptomatic. - Hold today's home metoprolol dosage. Diarrhea - Loose stool for 2 episodes a day for many days. Was on antibiotics recently. - Obtain C. difficile testing and contact precaution pending results Acute and chronic hypoxic and hypercapnic respiratory failure - Multifactorial with COPD exacerbation, possible healthcare associated pneumonia obesity hypoventilation syndrome. Possibly from COPD exacerbation - Continue O2 support and BiPAP - Continue steroids and IV antibiotics - Obtain CT for further characterization of pneumonia Hypokalemia - Replete 80 mEQ potassium HCAP - Continue vancomycin and Zosyn. - Follow-up urine strep and Legionella, respiratory panel, Blood cultures. - Sputum cultures added COPD exacerbation - Clinically Improving - Continue steroids and duonebs. O2 support and wean as tolerated. Lactic acidosis - resolved now after IV fluids Borderline diabetes mellitus - continue insulin sliding scale. Accu-Cheks. Expect some elevation glucose with steroids Depression -Continue home meds Diastolic CHF, chronic - Chronic. - no significant signs of volume overload. Continue home Lasix. Essential hypertension - Continue home meds DVT prophylaxis - Heparin subcutaneous - Time Spent with Patient Total time spent is greater than 50% in coordination of care (as documented) at patient's floor/unit and/or counseling patient: Internal Medicine: Result - Labs CBC & Chem 7: 05/07/18 00:18 05/07/18 00:18 Labs: Short CBC 05/06/18 05/07/18 Range/Units 19:55 00:18 WBC 5.9 8.2 (4.3-11.1) K/mcL Hgb 13.7 12.9 (12.9-16.9) g/dL Hct 45.3 42.8 (37.5-50.1) % Plt Count 119 L 104 L (140-400) K/mcL Neutrophils # 3.4 7.5 (1.6-8.9) K/mcL BMP 05/06/18 05/07/18 19:38 00:18 Sodium 138 139 Potassium 3.5 3.4 L Chloride 89 L 93 L Carbon Dioxide 42 H* 40 H* BUN 19 21 Creatinine 1.37 H 1.29 Glucose 185 H 101 Calcium 9.0 8.7 Cardiac Enzymes 05/06/18 Range/Units 19:38 Troponin I < 0.03 (< 0.04) ng/mL - ABG Interpretation ABG results: ABG ABG pH 7.35 pH Units (7.32-7.45) 05/06/18 20:14 ABG pCO2 79 mmHg (35-45) H* 05/06/18 20:14 ABG pO2 69 mmHg (85-104) L 05/06/18 20:14 ABG O2 Saturation 91 % (95-98) L 05/06/18 20:14 - Impressions Impressions Chest X-Ray 05/06/18 19:38 IMPRESSION: Multifocal airspace disease with right pleural effusion, grossly similar to the prior examination. D/ / Daryl Hooks MD / Daryl Hooks MD Interpreting Provider: Daryl Hooks MD Consult Discharge Plan - Plan Referrals: NONE,PCP [Primary Care Provider] - (6) Acute and chronic respiratory failure ([id number]) Qualifiers: Respiratory failure complication: hypoxia and hypercapnia Qualified Code(s): J96.21 - Acute and chronic respiratory failure with hypoxia; J96.22 - Acute and chronic respiratory failure with hypercapnia (9) Depression Qualifiers: Depression Type: unspecified Qualified Code(s): F32.9 - Major depressive dis order, single episode, unspecified
[2018-05-07] MEDS: Ipratropium/Albuterol Neb 3 ML IH PRN ×2 (12:53→15:59)
[2018-05-08] MEDS: methylPREDNISolone 125 MG/2 ML VIAL IVP SCH ×2 (04:59→16:26)
[2018-05-08] MEDS: *HR* Heparin 5,000 UNIT/ML VIAL SQ SCH ×3 (05:00→20:59)
[2018-05-08] MEDS: *HR* HYDROcodone/Acet 7.5/325 mg TABLET PO PRN ×2 (05:00→14:47)
[2018-05-08 05:24] LABS: Blood Urea Nitrogen 24 mg/dL (8-23); Carbon Dioxide 35 mEq/L (23-29); Chloride 98 mEq/L (98-107); Potassium 4.1 mEq/L (3.5-5.1); Sodium 139 mEq/L (136-145)
[2018-05-08 05:25] LABS: BUN/Creatinine Ratio 17 (6-26); Calcium 8.3 mg/dL (8.6-10.3); Glucose 174 mg/dL (70-105); Osmolality,Calculated 296 (280-300); eGFR For Non-African Americans 50 (> 60)
[2018-05-08] MEDS: Budesonide/Formoterol 160/4.5 1 PUFF INH IH SCH ×2 (08:18→21:05)
[2018-05-08] MEDS: Beclomethasone 40mcg REDIHALER IH SCH ×2 (08:19→21:06)
[2018-05-08] MEDS: Folic Acid 1 MG TABLET PO SCH (08:30)
[2018-05-08] MEDS: Metoprolol XL (24 HR) Succ 50 MG TAB.ER.24H PO SCH (08:30)
[2018-05-08] MEDS: Furosemide 20 MG TABLET PO SCH ×2 (08:30→16:26)
[2018-05-08] MEDS: Gabapentin 400 MG CAPSULE PO SCH ×3 (08:30→20:59)
[2018-05-08] MEDS: Famotidine 20 MG TABLET PO SCH ×2 (08:30→16:26)
[2018-05-08] MEDS: Insulin LISPRO 300 UNITS/3 ML VIAL SQ SCH ×4 (08:31→21:03)
[2018-05-08] MEDS: Cyanocobalamin (B-12) 1,000 MCG TABLET PO SCH (08:31)
[2018-05-08] MEDS: Fluticasone Propionate Nasal 50 MCG/SPRAY BOTTLE NS SCH (08:32)
[2018-05-08] MEDS: Piperacillin/Tazobactam 3.375 GM in 0.9 % Sodium Chloride Mini Bag 100 ML IVPB SCH (08:33)
--- NOTE | 2018-05-08 12:19 | Internal Med Progress Note ---
Hospitalist Progress Note - Encounter Date of Encounter: 05/08/18 Time of Encounter: 11:39 - Subjective Interval History: Patient seen and examined this morning. No acute overnight events. Denies any fevers chills, nausea vomiting. still with some diarrhea. Denies any abdominal pain. Breathing improved. On BiPAP overnight. Saturating well on nasal canula. - Exam Vitals: Temp Pulse Resp BP Pulse Ox 98.0 F 47 18 129/71 95 05/08/18 11:30 05/08/18 11:30 05/08/18 11:30 05/08/18 11:30 05/08/18 11:30 Exam: General: In no acute distress. Conversant. Obese. Respiratory exam: CTAB. Distant breath sounds. no accessory muscle use, rales, rhonchi, wheezes Cardiovascular exam: Bradycardia, +S1, +S2. no murmur, gallop, rubs. GI/Abdominal exam: Non-tender, Non-distended, normal bowel sounds, soft, no peritoneal signs. Extremities exam: full ROM, 1+ pedal edema, warm, pulses palpable in b/l lower extremities. no calf tenderness Neurological exam: CN II-XII intact, AO X3, no focal deficits. no pronater drift, facial droop, speech deficit Skin exam: chronic dermatitis changes on both legs. - Assessment and Plan (1) HCAP (healthcare-associated pneumonia) Current Visit: No Status: Acute (2) Diastolic CHF, chronic Current Visit: No Status: Chronic (3) Essential hypertension Current Visit: No Status: Chronic (4) COPD exacerbation Current Visit: Yes Status: Acute (5) DVT prophylaxis Current Visit: No Status: Acute (6) Acute and chronic respiratory failure ([id number]) Current Visit: No Status: Acute (7) Borderline diabetes mellitus Current Visit: Yes Status: Acute (8) Lactic acidosis Current Visit: Yes Status: Acute (9) Depression Current Visit: Yes Status: Acute - Summary of Assessment and Plan Summary of Assessment and Plan: Bradycardia - On beta ulysses at home. - Asymptomatic. - Hold home metoprolol. Diarrhea - Loose stool for 2 episodes a day for many days. Was on antibiotics recently. - Obtain C. difficile testing and contact precaution pending results. Acute and chronic hypoxic and hypercapnic respiratory failure - Multifactorial with COPD exacerbation, possible healthcare associated pneumonia obesity hypoventilation syndrome. Possibly from COPD exacerbation - Continue O2 support and BiPAP - steroids decreased and IV antibiotics - Obtain CT for further characterization of pneumonia Hypokalemia - Replete 80 mEQ potassium HCAP - CT with lung infiltrates which are unchanged suggesting chronic lung disease. No new process noted. - urine strep and Legionella negative. Blood cultures NGTD 05/06. respiratory panel pending - f/u Sputum cultures added - Will deescalate antibiotics to levaquin. COPD exacerbation - Clinically Improving - Continue steroids and duonebs. O2 support and wean as tolerated. Lactic acidosis - resolved now after IV fluids Borderline diabetes mellitus - continue insulin sliding scale. Accu-Cheks. Expect some elevation glucose with steroids Depression -Continue home meds Diastolic CHF, chronic - Chronic. - no significant signs of volume overload. - Continue home Lasix. Essential hypertension - Continue home meds DVT prophylaxis - Heparin subcutaneous Will get PT/OT. - Time Spent with Patient Total time spent is greater than 50% in coordination of care (as documented) at patient's floor/unit and/or counseling patient: Internal Medicine: Result - Labs CBC & Chem 7: 05/07/18 00:18 05/08/18 04:25 Labs: BMP 05/08/18 04:25 Sodium 139 Potassium 4.1 Chloride 98 Carbon Dioxide 35 H BUN 24 H Creatinine 1.44 H Glucose 174 H Calcium 8.3 L - ABG Interpretation ABG results: ABG ABG pH 7.35 pH Units (7.32-7.45) 05/06/18 20:14 ABG pCO2 79 mmHg (35-45) H* 05/06/18 20:14 ABG pO2 69 mmHg (85-104) L 05/06/18 20:14 ABG O2 Saturation 91 % (95-98) L 05/06/18 20:14 - Impressions Impressions Chest CT 05/07/18 08:43 IMPRESSION: Persistent bilateral lung infiltrates/chronic lung disease. Persistent enlargement of the main pulmonary artery compatible with pulmonary hypertension. D/ / 05/07/2018 12:41:42 Ru Madden MD / rajwinder Interpreting Provider: Ru Madden MD Consult Discharge Plan - Plan Referrals: NONE,PCP [Primary Care Provider] - (6) Acute and chronic respiratory failure ([id number]) Qualifiers: Respiratory failure complication: hypoxia and hypercapnia Qualified Code(s): J96.21 - Acute and chronic respiratory failure with hypoxia; J96.22 - Acute and chronic respiratory failure with hypercapnia (9) Depression Qualifiers: Depression Type: unspecified Qualified Code(s): F32.9 - Major depressive disorder, single episode, unspecified
[2018-05-08] MEDS ORDERED: Aminoglycoside Consult 1 EACH MC ONE (17:44)
[2018-05-09] MEDS: *HR* HYDROcodone/Acet 7.5/325 mg TABLET PO PRN ×3 (00:02→17:02)
[2018-05-09] MEDS: *HR* Heparin 5,000 UNIT/ML VIAL SQ SCH ×2 (05:28→12:45)
[2018-05-09] MEDS: methylPREDNISolone 125 MG/2 ML VIAL IVP SCH (05:28)
[2018-05-09] MEDS: Insulin LISPRO 300 UNITS/3 ML VIAL SQ SCH ×3 (07:25→17:02)
[2018-05-09] MEDS: Gabapentin 400 MG CAPSULE PO SCH ×2 (07:50→17:02)
[2018-05-09] MEDS: Furosemide 20 MG TABLET PO SCH ×2 (07:51→17:02)
[2018-05-09] MEDS: Folic Acid 1 MG TABLET PO SCH (07:52)
[2018-05-09] MEDS: Famotidine 20 MG TABLET PO SCH ×2 (07:52→17:02)
[2018-05-09] MEDS: Fluticasone Propionate Nasal 50 MCG/SPRAY BOTTLE NS SCH (07:52)
[2018-05-09] MEDS: Cyanocobalamin (B-12) 1,000 MCG TABLET PO SCH (07:53)
[2018-05-09] MEDS: Budesonide/Formoterol 160/4.5 1 PUFF INH IH SCH (07:56)
[2018-05-09] MEDS: Beclomethasone 40mcg REDIHALER IH SCH (07:56)
[2018-05-09] MEDS ORDERED: levoFLOXacin 750 MG TABLET PO SCH (09:00)
--- NOTE | 2018-05-09 13:06 | Discharge Summary ---
- NOTES TO OUTPATIENT PROVIDER Notes to Outpatient Provider: Metoprolol dosage was just tested given bradycardia. Patient given 7 day course of antibiotic and steroid taper Orders not resulted at time of discharge: Pending orders 05/06/18 20:09 Culture,Blood [BC] Stat 05/06/18 22:10 Respiratory Infection Panel [MOLMIC] Stat Date of Encounter: 05/09/18 Time of Encounter: 12:55 - Discharge Diagnosis (1) HCAP (healthcare-associated pneumonia) Priority: Primary Status: Acute (2) Diastolic CHF, chronic Priority: Secondary Status: Chronic (3) Essential hypertension Priority: Secondary Status: Chronic (4) COPD exacerbation Priority: Primary Status: Acute (5) DVT prophylaxis Priority: Secondary Status: Acute (6) Acute and chronic respiratory failure ([id number]) Priority: Primary Status: Acute Qualifiers: Respiratory failure complication: hypoxia and hypercapnia Qualified Code(s): J96.21 - Acute and chronic respiratory failure with hypoxia; J96.22 - A cute and chronic respiratory failure with hypercapnia (7) Borderline diabetes mellitus Priority: Secondary Status: Acute (8) Lactic acidosis Priority: Primary Status: Acute (9) Depression Priority: Secondary Status: Acute Qualifiers: Depression Type: unspecified Qualified Code(s): F32.9 - Major depressive disorder, single episode, unspecified Hospital course: Mr. Dumas is a 63 year old male with past medical history of COPD, hypertension, diastolic heart failure, CK 80, depression came in with complaint of shortness of breath. Initially was started treatment for COPD exacerbation and HCAP. Initially had minor lactic acidosis was corrected with 500 mL normal saline. Patient did not have any volume overload. Patient responded well with steroids and DuoNeb nebs and antibiotics. Blood cultures were negative. Urine streptococcal and legionella antigen negative and blood culture were negative. Antibiotics were D escalated to Levaquin. While hospitalize he had bradycardia which was asymptomatic which was observed while holding his metoprolol. He also mentioned diarrhea for many days which was sent for C. difficile testing and was negative. PT OT recommended rehabilitation however patient did not want to go and was discharged with home health. On discharge she was given prescription for decreased metoprolol, Symbicort, prednisone taper and Levaquin to finish 7 day course of antibiotic. Patient most likely had COPD exacerbation. Discharge discussed with: patient, nurse, social work - Time Spent with Patient Total time spent providing and/or coordinating discharge services: Greater than 30 minutes (42) - Discharge Medications Prescriptions: Budesonide/Formoterol 160/4.5 [Symbicort 160/4.5] 2 puff IH BIDR 30 Days #1 inh levoFLOXacin [Levaquin] 750 mg PO DAILY 3 Days #3 tablet predniSONE [PredniSONE] See Taper PO DAILY 8 Days #20 tablet Home Medications: Atorvastatin [Lipitor] 40 mg PO HS 07/29/15 [History] Sertraline [Zoloft] 200 mg PO QAM 07/29/15 [History] Albuterol Sulfate [Albuterol Inhaler] 2 puff IH Q4HR PRN 10/25/15 [History] Omeprazole [PriLOSEC] 40 mg PO DAILY 01/10/17 [History] Oxygen 1 each .ROUTE AD 01/10/17 [History] Folic Acid 1 mg PO DAILY tab 01/18/17 [Rx] Nitroglycerin [Nitrostat] 0.4 mg SL Q5M PRN 01/20/17 [History] Montelukast [Singulair] 10 mg PO DAILY 01/07/18 [History] Ranitidine HCl [Acid Java Jsf Developer] 150 mg PO BID 01/07/18 [History] Guaifenesin [Mucinex] 600 mg PO BID 01/14/18 [History] Polyethylene Glycol 3350 [MiraLAX] 17 gm PO DAILY 01/14/18 [History] Furosemide [Lasix] 40 mg PO BID 02/16/18 [History] Potassium Chloride 20 meq PO BIDWM 02/16/18 [History] HYDROcodone/Acet 7.5/325 mg [[place] 7.5-325 mg] 1 tab PO Q8H PRN 02/17/18 [History] Gabapentin [Neurontin] 800 mg PO TID 03/20/18 [History] Cyanocobalamin (B-12) [Vitamin B12] 1,000 mcg PO DAILY #90 tablet 03/27/18 [Rx] Ergocalciferol (VITAMIN D2) [Drisdol (50,000 Unit)] 50,000 unit PO QWEEK #15 capsule 03/27/18 [Rx] Ipratropium/Albuterol Neb [Duoneb] 3 ml IH Q8H 90 Days #270 inhsol 03/27/18 [Rx] Budesonide/Formoterol 160/4.5 [Symbicort 160/4.5] 2 puff IH BIDR 30 Days #1 inh 05/09/18 [Rx] Metoprolol Succinate [Toprol Xl] 50 mg PO DAILY 30 Days #30 tab.er.24h 05/09/18 [Rx] levoFLOXacin [Levaquin] 750 mg PO DAILY 3 Days #3 tablet 05/09/18 [Rx] predniSONE [PredniSONE] See Taper PO DAILY 8 Days #20 tablet 05/09/18 [Rx] Allergies/Adverse Reactions: Allergy/AdvReac Type Severity Reaction Status Date / Time azithromycin [From Zithromax] Allergy Rash Verified 08/23/17 09:52 Date of admission: 05/06/18 22:55 Primary care physician: PCP NONE Consults: 05/08/18 13:24 Consult to Occupational Therapy [CONS] Routine Comment: Evaluate, develop and implement POC Reason for Consult: improve mobility Does patient have active BEDREST order?: No Is patient medically & hemodynamically stable?: Yes Consult to Physical Therapy [CONS] Routine Comment: Evaluate, develop and implement POC Reason for Consult: improve mobility Does patient have active BEDREST order?: No Is patient medically & hemodynamically stable?: Yes - Constitutional Vitals: Temp Pulse Resp BP Pulse Ox 97.8 F 78 18 123/88 100 05/09/18 11:42 05/09/18 11:42 05/09/18 11:42 05/09/18 11:42 05/09/18 11:42 Exam: General: In no acute distress. Conversant. Obese. Respiratory exam: CTAB. Distant breath sounds. no accessory muscle use, rales, rhonchi, wheezes Cardiovascular exam: Bradycardia, +S1, +S2. no murmur, gallop, rubs. GI/Abdominal exam: Non-tender, Non-distended, normal bowel sounds, soft, no pe ritoneal signs. Extremities exam: full ROM, 1+ pedal edema, warm, pulses palpable in b/l lower extremities. no calf tenderness Neurological exam: CN II-XII intact, AO X3, no focal deficits. no pronater drift, facial droop, speech deficit Skin exam: chronic dermatitis changes on both legs. - Patient Status Disposition: Home Health Service Condition: Good - Discharge Instructions Follow Up With: NONE,PCP [Primary Care Provider] - - Diet and Activity Activity: as per physical therapy
[2018-05-09] MEDS ORDERED: Methyl Salicylate/Menthol 28 GM TUBE TP PRN (13:09)
--- NOTE | 2018-05-09 13:19 | Physician Discharge Referral ---
Home Health/Hosp Referral Info Transfer to: Home Health - Diagnosis (1) HCAP (healthcare-associated pneumonia) Status: Acute (2) Diastolic CHF, chronic Status: Chronic (3) Essential hypertension Status: Chronic (4) COPD exacerbation Status: Acute (5) DVT prophylaxis Status: Acute (6) Acute and chronic respiratory failure ([id number]-vt-[id number]) Status: Acute (7) Borderline diabetes mellitus Status: Acute (8) Lactic acidosis Status: Acute (9) Depression Status: Acute - Respiratory Orders Smoking Cessation: Smoking cessation has been advised. For more information, call the [place] Tobacco Quit Line at 8-145-OBNI-NOW. - Transfer Medications Prescriptions: Budesonide/Formoterol 160/4.5 [Symbicort 160/4.5] 2 puff IH BIDR 30 Days #1 inh levoFLOXacin [Levaquin] 750 mg PO DAILY 3 Days #3 tablet Metoprolol Succinate [Toprol Xl] 50 mg PO DAILY 30 Days #30 tab.er.24h predniSONE [PredniSONE] See Taper PO DAILY 8 Days #20 tablet Home Medications: Atorvastatin [Lipitor] 40 mg PO HS 07/29/15 [History] Sertraline [Zoloft] 200 mg PO QAM 07/29/15 [History] Albuterol Sulfate [Albuterol Inhaler] 2 puff IH Q4HR PRN 10/25/15 [History] Omeprazole [PriLOSEC] 40 mg PO DAILY 01/10/17 [History] Oxygen 1 each .ROUTE AD 01/10/17 [History] Folic Acid 1 mg PO DAILY tab 01/18/17 [Rx] Nitroglycerin [Nitrostat] 0.4 mg SL Q5M PRN 01/20/17 [History] Montelukast [Singulair] 10 mg PO DAILY 01/07/18 [History] Ranitidine HCl [Acid Home Economist Consumer Service] 150 mg PO BID 01/07/18 [History] Guaifenesin [Mucinex] 600 mg PO BID 01/14/18 [History] Polyethylene Glycol 3350 [MiraLAX] 17 gm PO DAILY 01/14/18 [History] Furosemide [Lasix] 40 mg PO BID 02/16/18 [History] Potassium Chloride 20 meq PO BIDWM 02/16/18 [History] HYDROcodone/Acet 7.5/325 mg [[place] 7.5-325 mg] 1 tab PO Q8H PRN 02/17/18 [History] Gabapentin [Neurontin] 800 mg PO TID 03/20/18 [History] Cyanocobalamin (B-12) [Vitamin B12] 1,000 mcg PO DAILY #90 tablet 03/27/18 [Rx] Ergocalciferol (VITAMIN D2) [Drisdol (50,000 Unit)] 50,000 unit PO QWEEK #15 capsule 03/27/18 [Rx] Ipratropium/Albuterol Neb [Duoneb] 3 ml IH Q8H 90 Days #270 inhsol 03/27/18 [Rx] Budesonide/Formoterol 160/4.5 [Symbicort 160/4.5] 2 puff IH BIDR 30 Days #1 inh 05/09/18 [Rx] Metoprolol Succinate [Toprol Xl] 50 mg PO DAILY 30 Days #30 tab.er.24h 05/09/18 [Rx] levoFLOXacin [Levaquin] 750 mg PO DAILY 3 Days #3 tablet 05/09/18 [Rx] predniSONE [PredniSONE] See Taper PO DAILY 8 Days #20 tablet 05/09/18 [Rx] Allergies/Adverse Reactions: Allergy/AdvReac Type Severity Reaction Status Date / Time azithromycin [From Zithromax] Allergy Rash Verified 08/23/17 09:52 Certification: Further, I certify that my clinical findings support that this patient is homebound (i.e. absences from home require considerable and taxing effort and are for medical reasons or muslim services or infrequently or short duration when for other reasons) because: Homebound Reason: Patient requires assistance of a person or device to safely leave home Attestation: My signature below is to certify that this patient is under my care and that I, or nurse practitioner, or a physician's assistant golf course superintendent working with me, has a [id number] encounter with this patient.
--- NOTE | 2018-05-09 15:49 | Physician Discharge Referral ---
Home Health/Hosp Referral Info Transfer to: Home Health - Diagnosis (1) HCAP (healthcare-associated pneumonia) Status: Acute (2) Diastolic CHF, chronic Status: Chronic (3) Essential hypertension Status: Chronic (4) COPD exacerbation Status: Acute (5) DVT prophylaxis Status: Acute (6) Acute and chronic respiratory failure (wjbrb-[id number]-[id number]) Status: Acute (7) Borderline diabetes mellitus Status: Acute (8) Lactic acidosis Status: Acute (9) Depression Status: Acute - Respiratory Orders Smoking Cessation: Smoking cessation has been advised. For more information, call the [place] Tobacco Quit Line at 7-585-JFRO-NOW. - Services Needed Following services are medically necessary services: Nursing, Physical Therapy, Occupational Therapy - Transfer Medications Prescriptions: Budesonide/Formoterol 160/4.5 [Symbicort 160/4.5] 2 puff IH BIDR 30 Days #1 inh levoFLOXacin [Levaquin] 750 mg PO DAILY 3 Days #3 tablet Metoprolol Succinate [Toprol Xl] 50 mg PO DAILY 30 Days #30 tab.er.24h predniSONE [PredniSONE] See Taper PO DAILY 8 Days #20 tablet Home Medications: Atorvastatin [Lipitor] 40 mg PO HS 07/29/15 [History] Sertraline [Zoloft] 200 mg PO QAM 07/29/15 [History] Albuterol Sulfate [Albuterol Inhaler] 2 puff IH Q4HR PRN 10/25/15 [History] Omeprazole [PriLOSEC] 40 mg PO DAILY 01/10/17 [History] Oxygen 1 each .ROUTE AD 01/10/17 [History] Folic Acid 1 mg PO DAILY tab 01/18/17 [Rx] Nitroglycerin [Nitrostat] 0.4 mg SL Q5M PRN 01/20/17 [History] Montelukast [Singulair] 10 mg PO DAILY 01/07/18 [History] Ranitidine HCl [Acid Fire Officer] 150 mg PO BID 01/07/18 [History] Guaifenesin [Mucinex] 600 mg PO BID 01/14/18 [History] Polyethylene Glycol 3350 [MiraLAX] 17 gm PO DAILY 01/14/18 [History] Furosemide [Lasix] 40 mg PO BID 02/16/18 [History] Potassium Chloride 20 meq PO BIDWM 02/16/18 [History] HYDROcodone/Acet 7.5/325 mg [[place] 7.5-325 mg] 1 tab PO Q8H PRN 02/17/18 [History] Gabapentin [Neurontin] 800 mg PO TID 03/20/18 [History] Cyanocobalamin (B-12) [Vitamin B12] 1,000 mcg PO DAILY #90 tablet 03/27/18 [Rx] Ergocalciferol (VITAMIN D2) [Drisdol (50,000 Unit)] 50,000 unit PO QWEEK #15 capsule 03/27/18 [Rx] Ipratropium/Albuterol Neb [Duoneb] 3 ml IH Q8H 90 Days #270 inhsol 03/27/18 [Rx] Budesonide/Formoterol 160/4.5 [Symbicort 160/4.5] 2 puff IH BIDR 30 Days #1 inh 05/09/18 [Rx] Metoprolol Succinate [Toprol Xl] 50 mg PO DAILY 30 Days #30 tab.er.24h 05/09/18 [Rx] levoFLOXacin [Levaquin] 750 mg PO DAILY 3 Days #3 tablet 05/09/18 [Rx] predniSONE [PredniSONE] See Taper PO DAILY 8 Days #20 tablet 05/09/18 [Rx] Allergies/Adverse Reactions: Allergy/AdvReac Type Severity Reaction Status Date / Time azithromycin [From Zithromax] Allergy Rash Verified 08/23/17 09:52 Certification: Further, I certify that my clinical findings support that this patient is homebound (i.e. absences from home require considerable and taxing effort and are for medical reasons or quaker services or infrequently or short duration when for other reasons) because: Homebound Reason: Patient requires assistance of a person or device to safely leave home Attestation: My signature below is to certify that this patient is under my care and that I, or nurse practitioner, or a physician's conservation assistant working with me, has a [id number] encounter with this patient.
[2018-05-09 16:33] VITALS: BP 125/88
--- NOTE | 2018-05-09 17:50 | Electrocardiograph Report ---
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
== END 2018-05-09 17:45 | disposition home health service (06) | DRG 140 ==
LOC: EMEROOARM 19:31 → SUATTDRO 22:55 → 2NNU 22:55
PROVIDERS: ADMIT Internal Medicine; ATTEND Internal Medicine